=== PATIENT | female | born 1950 | race Hispanic/Latino ===

== ENCOUNTER 2016-06-05 18:53 | Emergency (ER) | payer MEDICARE ==
[2016-06-05 18:54] VITALS: BMI 23.6
[2016-06-05 20:21] VITALS: TEMP 97.9
[2016-06-05 21:05] LABS: BASO # 0.1 K/uL (0.0-0.2); BASO % 1.2 % (0.0-2.0); EOS # 0.3 K/uL (0.0-0.7); EOS % 2.8 % (0.0-4.0); HEMATOCRIT 43.5 % (34.0-47.0); LYMPH # 3.1 K/uL (1.0-4.3); LYMPH % 31.8 % (20.0-40.0); MEAN CELL VOLUME 86.6 fL (81.0-99.0); MEAN CORPUSCULAR HEMOGLOBIN 28.2 pg (27.0-31.0); MEAN CORPUSCULAR HGB CONC 32.6 g/dL (33.0-37.0); MEAN PLATELET VOLUME 9.5 fL (7.2-11.7); MONO # 0.6 K/uL (0.0-0.8); MONO % 6.5 % (0.0-10.0); RED CELL DISTRIBUTION WIDTH 14.3 % (11.5-14.5); WHITE BLOOD COUNT 9.8 K/uL (4.8-10.8)
[2016-06-05 21:15] LABS: INR 0.9; PARTIAL THROMBOPLASTIN TIME 29 SECONDS (21-34)
[2016-06-05 21:31] LABS: CHLORIDE 98 mmol/L (98-107); SODIUM 141 mmol/L (132-148)
[2016-06-05 21:32] LABS: POTASSIUM 3.4 mmol/L (3.6-5.2)
[2016-06-05 21:34] LABS: ALB/GLOB RATIO 1.2 (1.0-2.1); AST/SGOT 28 U/L (14-36); BILIRUBIN,TOTAL 0.2 mg/dL (0.2-1.3); BLOOD UREA NITROGEN 18 mg/dL (7-17); CARBON DIOXIDE 28 mmol/L (22-30); GFR AFRICAN-AMERICAN > 60; GLUCOSE,RANDOM 104 mg/dL (65-105); TOTAL PROTEIN 7.9 g/dL (6.3-8.3)
[2016-06-05 21:35] LABS: ALKALINE PHOSPHATASE 128 U/L (38-126); ALT/SGPT 26 U/L (9-52); CALCIUM 9.2 mg/dl (8.6-10.4)
[2016-06-05 21:39] VITALS: RESP 14
[2016-06-05] MEDS ORDERED: Potassium Chloride 20 mEq ER Tab PO STA (21:47)
--- NOTE | 2016-06-05 22:01 | C.PDOC ---
History Of Present Illness Pt c/o left lateral thigh pain. Time Seen by Provider: 06/05/16 20:37 Chief Complaint (Nursing): Lower Extremity Problem/Injury History Per: Patient, Family Onset/Duration Of Symptoms: Days (few) Current Symptoms Are (Timing): Still Present Severity: Moderate Legs Front+Back: 1 - pain Additional History Per: Prior Records Past Medical History Reviewed: Historical Data, Nursing Documentation, Vital Signs Vital Signs: Last Vital Signs Temp 97.9 F 06/05/16 20:11 Pulse 63 06/05/16 21:38 Resp 14 06/05/16 21:38 BP 141/72 06/05/16 21:38 Pulse Ox 97 06/05/16 21:38 - Medical History PMH: Back Problems, HTN, Kidney Stones Surgical History: Appendectomy - [facility] Procedures INJECT/INFUSE NEC (10/15/12) Family History: States: Unknown Family Hx - Social History Hx Tobacco Use: Yes Hx Alcohol Use: No Hx Substance Use: No - Immunization History Hx Tetanus Toxoid Vaccination: No Hx Influenza Vaccination: No Hx Pneumococcal Vaccination: No Review Of Systems Except As Marked, All Systems Reviewed And Found Negative. Constitutional: Negative for: Fever, Weakness Cardiovascular: Negative for: Chest Pain Respiratory: Negative for: Shortness of Breath Gastrointestinal: Negative for: Vomiting, Abdominal Pain Musculoskeletal: Positive for: Back Pain (low, resolved). Negative for: Neck Pain, Leg Pain, Foot Pain Skin: Negative for: Rash Neurological: Negative for: Weakness, Numbness, Seizures, Altered Mental Status Physical Exam - Physical Exam Appears: Non-toxic, No Acute Distress Skin: Normal Color, Warm, Dry Head: Atraumatic, Normacephalic Eye(s): bilateral: PERRL, EOMI Neck: Normal ROM, Supple Cardiovascular: Rhythm Regular Respiratory: Normal Breath Sounds, No Accessory Muscle Use Gastrointestinal/Abdominal: Soft, No Tenderness Back: No CVA Tenderness, No Vertebral Tenderness, No Straight Leg Raising Extremity: Normal ROM, Tenderness (left lateral thigh with cellulite and spider veins and soft tissue tenderness. ), No Pedal Edema, No Calf Tenderness, Capillary Refill (wnl), No Deformity Pulses: Left Dorsalis Pedis: Normal Neurological/Psych: Oriented x3, Normal Motor, Normal Sensation ED Course And Treatment - Laboratory Results Result Diagrams: 06/05/16 21:00 06/05/16 21:00 Lab Interpretation: No Acute Changes O2 Sat by Pulse Oximetry: 97 Pulse Ox Interpretation: Normal Progress Note: I want to order a LLE duplex to r/o DVT, however it is not available at this time. Reassessment Condition: Improved Disposition Counseled Patient/Family Regarding: Studies Performed, Diagnosis, Need For Followup, Rx Given - Disposition Referrals: Tara Lucas MD [Staff Provider] - Disposition: HOME/ ROUTINE Disposition Time: 22:02 Condition: IMPROVED Additional Instructions: Return to the ER in the morning for an ultrasound of your leg to rule out a blood clot. Return to the ER immediately if you develop chest pain, shortness of breath, worsening of symptoms or if you have any other concerns. Prescriptions: traMADol/Acetaminophen [Ultracet 325 MG-37.5 MG] 1 tab PO Q4 PRN #20 tab PRN Reason: Pain Forms: General Discharge Instructions - Clinical Impression Clinical Impression: Pain of left lateral upper thigh
[2016-06-05] MEDS ORDERED: Potassium Chloride 20 mEq ER Tab PO ONE (22:21)
[2016-06-05 22:49] VITALS: BP 142/58; PULSE 74; O2SAT 95
== END 2016-06-05 22:48 | disposition home or self-care (01) ==
LOC: C.ER 18:53
DX: M79.652 Pain in left thigh (principal)
CPT/HCPCS: 80053; 85025; 85378; 85610; 85730; 96372; 99285; J1885

== ENCOUNTER 2016-06-06 09:17 | Emergency (ER) | payer MEDICARE ==
[2016-06-06 09:18] VITALS: BMI 23.6
[2016-06-06 09:42] VITALS: TEMP 97.7
--- NOTE | 2016-06-06 09:53 | C.PDOC ---
History Of Present Illness A 65 year old female presents to the emergency room requesting a US doppler for the left leg. Patient was seen in the ED yesterday with complaints of posterior upper left thigh pain for 1 week after injuring her back. Patient also notes a pain radiating down her leg. Patient denies any swelling, difficulty ambulating , numbness, weakness, fever, chest pain, shortness of breath, or any other complaints. Time Seen by Provider: 06/06/16 09:53 Chief Complaint (Nursing): Lower Extremity Problem/Injury History Per: Patient History/Exam Limitations: no limitations Onset/Duration Of Symptoms: Other (1 week) Current Symptoms Are (Timing): Still Present Severity: Mild Recent travel outside of the [place]: No Past Medical History Reviewed: Historical Data, Nursing Documentation, Vital Signs Vital Signs: Last Vital Signs Temp 97.7 F 06/06/16 09:40 Pulse 60 06/06/16 10:42 Resp 18 06/06/16 10:42 BP 160/77 H 06/06/16 10:42 Pulse Ox 96 06/06/16 11:05 - Medical History PMH: Back Problems, HTN, Kidney Stones Surgical History: Appendectomy - [facility] Procedures INJECT/INFUSE NEC (10/15/12) Family History: States: Unknown Family Hx - Social History Hx Tobacco Use: Yes Hx Alcohol Use: No Hx Substance Use: No - Immunization History Hx Tetanus Toxoid Vaccination: No Hx Influenza Vaccination: No Hx Pneumococcal Vaccination: No Review Of Systems Except As Marked, All Systems Reviewed And Found Negative. Constitutional: Negative for: Fever Cardiovascular: Negative for: Chest Pain Respiratory: Negative for: Shortness of Breath Musculoskeletal: Positive for: Other (Upper left thigh pain) Neurological: Negative for: Weakness, Numbness Physical Exam - Physical Exam Appears: Well, Non-toxic, No Acute Distress Skin: Normal Color, Warm, Dry, No Rash Head: Atraumatic, Normacephalic Eye(s): bilateral: Normal Inspection Neck: Normal ROM, Supple Cardiovascular: Rhythm Regular Respiratory: Normal Breath Sounds, No Rales, No Rhonchi, No Wheezing Gastrointestinal/Abdominal: Soft, No Tenderness, No Guarding, No Rebound Back: Normal Inspection, No CVA Tenderness, No Vertebral Tenderness Extremity: Normal ROM, No Tenderness, No Pedal Edema, No Calf Tenderness, No Deformity, No Swelling Neurological/Psych: Oriented x3, Normal Speech, Normal Motor, Normal Sensation ED Course And Treatment O2 Sat by Pulse Oximetry: 96 Progress Note: Plan: US Doppler LE. Disposition Counseled Patient/Family Regarding: Diagnosis, Need For Followup - Disposition Referrals: [facility] [Outside] YOUR,PMD [Other] Disposition: HOME/ ROUTINE Disposition Time: 10:39 Condition: GOOD Additional Instructions: TAKE MEDS PRESCRIBED. SEE YOUR PMD FOR FURTHER EVALUATION Instructions: Hypokalemia (ED), Sciatica (ED) - Clinical Impression Clinical Impression: Lumbar radiculopathy - Scribe Statement The provider has reviewed the documentation as recorded by the Scribe Fabio Ramírez All medical record entries made by the Scooteribashli were at my direction and personally dictated by me. I have reviewed the chart and agree that the record accurately reflects my personal performance of the history, physical exam, medical decision making, and the department course for this patient. I have also personally directed, reviewed, and agree with the discharge instructions and disposition.
[2016-06-06 10:42] VITALS: BP 160/77; PULSE 60; RESP 18
[2016-06-06 11:02] VITALS: O2SAT 96
--- NOTE | 2016-06-07 15:25 | VASCLAB ---
PROCEDURE: Left Lower Extremity Venous Duplex Exam. HISTORY: R/O DVT PRIORS: None. TECHNIQUE: Left common femoral, femoral, popliteal and posterior tibial, peroneal and great saphenous veins were evaluated. Flow was assessed with color Doppler, compressibility, assessment of phasic flow and augmentation response. Report prepared by KORY Zhu, RVT FINDINGS: LEFT: 1. Common Femoral Vein: 1.1. Compressibility - Fully compressible: Thrombus - None : Flow - Phasic: Augmentation -Normal: Reflux - None. 2. Femoral Vein: 2.1. Compressibility - Fully compressible: Thrombus - None: Flow - Phasic: Augmentation -Normal: Reflux - None. 3. Popliteal Vein: 3.1. Compressibility - Fully compressible: Thrombus - None: Flow - Phasic: Augmentation -Normal: Reflux - None. 4. Posterior Tibial Vein: 4.1. Compressibility - Fully compressible: Thrombus - None: Flow - Phasic: Augmentation -Normal: Reflux - None. 5. Peroneal Vein: 5.1. Compressibility - Fully compressible: Thrombus - None: Flow - Phasic: Augmentation -Normal: Reflux - None. 6. Great Saphenous Vein: 6.1. Compressibility - Fully compressible: Thrombus - None: Flow - Phasic: Augmentation - Normal: Reflux - None. OTHER FINDINGS: IMPRESSION: No evidence of deep or superficial vein thrombosis of the left lower extremity with excellent venous flow. Normal valve function noted of the left side. Normal venous flow noted in the right common femoral vein.
== END 2016-06-06 10:45 | disposition home or self-care (01) ==
LOC: C.ER 09:17
DX: M54.16 Radiculopathy, lumbar region (principal)

== ENCOUNTER 2017-04-21 05:04 | Emergency (ER) | payer MEDICARE ==
[2017-04-21 05:06] VITALS: BMI 23.6
[2017-04-21 05:23] VITALS: TEMP 98.3
--- NOTE | 2017-04-21 06:50 | C.PDOC ---
History Of Present Illness Patient is a 66 y/o female, with a Hx of 1 kidney and HTN, who presents to the ED with complaints of swelling in hands, upper shoulder and neck pain for the last 3 days. Patient reports to have been pushing a heavy object when she experienced symptoms subsequently. Patient denies any numbness, tingling, or fever; notes pain upon moving upper extremities. Patient admits taking OTC Motrin 200 mg with minimal relief. No other physical complaints at this time. Time Seen by Provider: 04/21/17 06:30 Chief Complaint (Nursing): Medical Clearance History Per: Patient History/Exam Limitations: no limitations Onset/Duration Of Symptoms: Days (3 days ago) Current Symptoms Are (Timing): Still Present Recent travel outside of the [place]: No Past Medical History Reviewed: Historical Data, Nursing Documentation, Vital Signs Vital Signs: Last Vital Signs Temp 98.3 F 04/21/17 05:17 Pulse 84 04/21/17 07:00 Resp 20 04/21/17 07:00 BP 128/76 04/21/17 07:00 Pulse Ox 96 04/27/17 08:50 - Medical History PMH: Back Problems, HTN, Kidney Stones Surgical History: Appendectomy Other Surgeries: nephrectomy - [facility] Procedures INJECT/INFUSE NEC (10/15/12) Family History: States: No Known Family Hx - Social History Hx Tobacco Use: Yes (light smoker) Hx Alcohol Use: No Hx Substance Use: No - Immunization History Hx Tetanus Toxoid Vaccination: No Hx Influenza Vaccination: No Hx Pneumococcal Vaccination: No Review Of Systems Constitutional: Negative for: Fever Cardiovascular: Positive for: Edema (to bilateral hands) Musculoskeletal: Positive for: Neck Pain, Shoulder Pain (bilateral), Arm Pain ( upon movement bilaterally) Neurological: Positive for: Other (negative tingling). Negative for: Numbness Physical Exam - Physical Exam Appears: Non-toxic, No Acute Distress Skin: Normal Color, Warm, Dry Head: Atraumatic, Normacephalic Oral Mucosa: Moist Neck: No Midline Cervical Tenderness, Paracervical Tenderness (bilateral), Supple Chest: Symmetrical Cardiovascular: Rhythm Regular, No Murmur Respiratory: Normal Breath Sounds, No Rales, No Rhonchi, No Wheezing Back: No CVA Tenderness, No Vertebral Tenderness, No Paraspinal Tenderness Extremity: Normal ROM (full range of motion to bilateral elbows; decreased range of motion of bilateral shoulders secondary to pain ), Tenderness ( tenderness to bilateral shoulders and trapezius bilaterally), No Swelling ( negative swelling to bilateal hands), No Other (negative tenderness to bilateral wrists) Pulses: Left Radial: Normal (2+ ), Right Radial: Normal (2+) Neurological/Psych: Oriented x3, Normal Speech, Normal Cognition, Normal Motor, Normal Sensation ED Course And Treatment O2 Sat by Pulse Oximetry: 96 Progress Note: Tylenol administered. Disposition Counseled Patient/Family Regarding: Diagnosis, Need For Followup, Rx Given - Disposition Referrals: Angela Westfall MD [Medical Doctor] - Disposition: HOME/ ROUTINE Disposition Time: 07:00 Condition: STABLE Additional Instructions: Please continue taking Meloxicam that you have at home. Take Tylenol and Muscle relaxant as prescribed. The muscle relaxant will make you drowsy- do no go out when taking this. Follow up with your doctor in a few days. No heavy lifting. Prescriptions: Acetaminophen [Tylenol 325mg tab] 650 mg PO Q6 #30 tab Instructions: Musculoskeletal Pain (ED) Forms: General Discharge Instructions, [facility] (Korean), Work Excuse - Clinical Impression Clinical Impression: Musculoskeletal pain - Scribe Statement The provider has reviewed the documentation as recorded by the Scribe Felicia Mace All medical record entries made by the Scribe were at my direction and personally dictated by me. I have reviewed the chart and agree that the record accurately reflects my personal performance of the history, physical exam, medical decision making, and the department course for this patient. I have also personally directed, reviewed, and agree with the discharge instructions and disposition.
--- NOTE | 2017-04-21 07:15 | C.PDOC ---
Time Seen by Provider: 04/21/17 06:30 Chief Complaint (Nursing): Medical Clearance Past Medical History Vital Signs: Last Vital Signs Temp 98.3 F 04/21/17 05:17 Pulse 96 H 04/21/17 05:17 Resp 22 04/21/17 05:17 BP 145/78 04/21/17 05:17 Pulse Ox 96 04/21/17 05:17 - Medical History PMH: Back Problems, HTN, Kidney Stones Surgical History: Appendectomy - [facility] Procedures INJECT/INFUSE NEC (10/15/12) Family History: States: Unknown Family Hx - Social History Hx Tobacco Use: Yes Hx Alcohol Use: No Hx Substance Use: No - Immunization History Hx Tetanus Toxoid Vaccination: No Hx Influenza Vaccination: No Hx Pneumococcal Vaccination: No ED Course And Treatment O2 Sat by Pulse Oximetry: 96 Medical Decision Making Medical Decision Making: pt with shoulder neck hand pain after pushing/pulling heavy chair. hx one kidney. will give tylenol and muscle relaxant. Disposition Counseled Patient/Family Regarding: Diagnosis, Need For Followup, Rx Given - Disposition Referrals: Angela Westfall MD [Medical Doctor] - Disposition: HOME/ ROUTINE Disposition Time: 07:17 Condition: STABLE Additional Instructions: Please continue taking Meloxicam that you have at home. Take Tylenol and Muscle relaxant as prescribed. The muscle relaxant will make you drowsy- do no go out when taking this. Follow up with your doctor in a few days. No heavy lifting. Prescriptions: Acetaminophen [Tylenol 325mg tab] 650 mg PO Q6 #30 tab Cyclobenzaprine [Cyclobenzaprine HCl] 5 mg PO TID #9 tab Instructions: Musculoskeletal Pain (ED) Forms: [facility] ([place] Arabian), General Discharge Instructions - Clinical Impression Clinical Impression: Musculoskeletal pain
[2017-04-21 07:46] VITALS: BP 128/76; PULSE 84; RESP 20
[2017-04-27 08:47] VITALS: O2SAT 96
== END 2017-04-21 07:45 | disposition home or self-care (01) ==
LOC: C.ER 05:04
DX: M79.1 Myalgia (principal)

== ENCOUNTER 2017-04-25 07:36 | Inpatient (IN) | payer MEDICARE ==
[2017-04-25 07:37] VITALS: BMI 23.6
[2017-04-25] MEDS ORDERED: Iohexol 240 (50 ml) PO ONE (08:41)
[2017-04-25] MEDS ORDERED: Iohexol 240 (50 ml) ONE (08:52)
--- NOTE | 2017-04-25 09:01 | C.PDOC ---
History Of Present Illness 66 y/o female presents to ED with complaints of abdominal pain and distention since yesterday. Patient was seen on 04/30 at ED for muscle spasm and given Flexiril, started having diarrhea and went to clinic given other medication, developed abdominal pain. Patient reports last bowel movement today and denies fever, chills, chest pain, sob, nausea or any other complaints at this time. Time Seen by Provider: 04/25/17 07:59 Chief Complaint (Nursing): Abdominal Pain History Per: Patient History/Exam Limitations: no limitations Onset/Duration Of Symptoms: Days Current Symptoms Are (Timing): Still Present Location Of Pain/Discomfort: Diffuse Past Medical History Reviewed: Historical Data, Nursing Documentation, Vital Signs Vital Signs: Last Vital Signs Temp 97.7 F 04/30/17 04:00 Pulse 74 04/30/17 06:30 Resp 16 04/30/17 06:18 BP 140/43 L 04/30/17 06:18 Pulse Ox 95 04/30/17 06:18 - Medical History PMH: Back Problems, HTN, Hypercholesterolemia, Kidney Stones Surgical History: Appendectomy - [facility] Procedures INJECT/INFUSE NEC (10/15/12) Family History: States: No Known Family Hx - Social History Hx Tobacco Use: Yes (light smoker) Hx Alcohol Use: No Hx Substance Use: No - Immunization History Hx Tetanus Toxoid Vaccination: No Hx Influenza Vaccination: No Hx Pneumococcal Vaccination: No Review Of Systems Except As Marked, All Systems Reviewed And Found Negative. Gastrointestinal: Positive for: Abdominal Pain, Diarrhea Physical Exam - Physical Exam Appears: Non-toxic, No Acute Distress Skin: Warm, Dry, No Rash Head: Atraumatic, Normacephalic Oral Mucosa: Moist Neck: Normal ROM, Supple Cardiovascular: Rhythm Regular Respiratory: Normal Breath Sounds, No Rales, No Rhonchi, No Wheezing Gastrointestinal/Abdominal: Bowel Sounds, Soft, Tenderness ((+) diffuse tenderness, greater in lower quadrants), No Distention, No Guarding, No Rebound Rectal: Heme Positive Back: No CVA Tenderness Neurological/Psych: Oriented x3 ED Course And Treatment - Laboratory Results Result Diagrams: 04/30/17 06:17 04/30/17 06:13 ECG: Interpreted By Me, Viewed By Me ECG Rhythm: Sinus Rhythm Interpretation Of ECG: Left atrial enlargement Rate From EC (BPM) O2 Sat by Pulse Oximetry: 99 (RA) Pulse Ox Interpretation: Normal Medical Decision Making Medical Decision Making: assessment: Abdominal pain Progress: Patient is admitted to Dr. Medina service for abdominal pain with consult to Dr. Hollingsworth surgery consumer banker Disposition Discussed With : Sherley Medina Doctor Will See Patient In The: Hospital Counseled Patient/Family Regarding: Studies Performed, Diagnosis - Disposition Disposition: HOSPITALIZED Disposition Time: 12:44 Condition: FAIR - Clinical Impression Clinical Impression: Abdominal pain - Scribe Statement The provider has reviewed the documentation as recorded by the Scooteribashli Gates All medical record entries made by the Fabiana were at my direction and personally dictated by me. I have reviewed the chart and agree that the record accurately reflects my personal performance of the history, physical exam, medical decision making, and the department course for this patient. I have also personally directed, reviewed, and agree with the discharge instructions and disposition.
[2017-04-25 09:05] LABS: BASO # 0.1 K/uL (0.0-0.2); BASO % 0.4 % (0.0-2.0); EOS # 0.1 K/uL (0.0-0.7); EOS % 0.6 % (0.0-4.0); HEMOGLOBIN 13.1 g/dL (11.0-16.0); LYMPH # 1.1 K/uL (1.0-4.3); LYMPH % 6.4 % (20.0-40.0); MEAN CORPUSCULAR HEMOGLOBIN 29.2 pg (27.0-31.0); MEAN CORPUSCULAR HGB CONC 34.4 g/dL (33.0-37.0); MEAN PLATELET VOLUME 8.5 fL (7.2-11.7); MONO % 6.1 % (0.0-10.0); NEUT # 14.7 K/uL (1.8-7.0); NEUT % 86.5 % (50.0-75.0); PLATELET COUNT 305 K/uL (130-400); RBC 4.49 Mil/uL (3.80-5.20); RED CELL DISTRIBUTION WIDTH 14.1 % (11.5-14.5)
[2017-04-25 09:17] LABS: ALB/GLOB RATIO 0.8 (1.0-2.1); ALBUMIN 2.8 g/dL (3.5-5.0); CALCIUM 7.7 mg/dl (8.6-10.4)
[2017-04-25 09:25] LABS: SQUAMOUS EPITHIAL 54 /hpf (0-5); URINE BACTERIA FEW (<OCC); URINE BILIRUBIN NEGATIVE (NEGATIVE); URINE BLOOD 2+ (NEGATIVE); URINE CLARITY Hazy (Clear); URINE COLOR Yellow (YELLOW); URINE GLUCOSE (UA) NORMAL (Normal); URINE LEUKOCYTE ESTERASE TRACE Leu/uL (Negative); URINE PROTEIN 2+ mg/dL (NEGATIVE); URINE UROBILINOGEN NORMAL mg/dL (0.2-1.0)
[2017-04-25] MEDS ORDERED: Piperacillin/Tazobact 3.375 GM in Sodium Chloride 100 ML IVPB STA (10:14)
[2017-04-25 10:23] LABS: LYMPHOCYTE 2 % (20-40); MONOCYTE 6 % (0-10); NEUTROPHIL 92 % (50-75); PLATELET ESTIMATE NORMAL (NORMAL); TOTAL CELLS COUNTED 100
[2017-04-25] MEDS ORDERED: Sodium Chloride 0.9% 1,000 ML IV ONE ×2 (10:25→12:45)
[2017-04-25] MEDS ORDERED: Sodium Chloride 0.9% 1,000 ML ONE ×2 (10:45→13:15)
--- NOTE | 2017-04-25 12:14 | CT ---
PROCEDURE: CT Abdomen and Pelvis without IV contrast. HISTORY: abd. pain COMPARISON: None available TECHNIQUE: Contiguous axial images of the abdomen and pelvis. Oral contrast was administered. No IV contrast given. Coronal and Sagittal reformats generated. Radiation dose: Total exam DLP = 391.77 mGy-cm. This CT exam was performed using one or more of the following dose reduction techniques: Automated exposure control, adjustment of the mA and/or kV according to patient size, and/or use of iterative reconstruction technique. FINDINGS: There is limited evaluation of the solid organs without the administration of IV contrast. LOWER THORAX: Bibasilar atelectasis. There is no visible pleural effusion or pneumothorax. LIVER: Unremarkable unenhanced appearance. GALLBLADDER AND BILE DUCTS: Unremarkable unenhanced appearance. PANCREAS: Unremarkable unenhanced appearance. SPLEEN: Unremarkable unenhanced appearance. ADRENALS: The left adrenal gland is not well visualized. The right adrenal gland appears unremarkable. KIDNEYS AND URETERS: Evidence of left nephrectomy. No evidence of hydronephrosis or obstructing calculus, right kidney. BLADDER: Under distention of the urinary bladder limits evaluation. REPRODUCTIVE: Uterus is present. This left adnexal cystic lesions, possibly ovarian of unclear etiology. APPENDIX: The appendix is not identified. BOWEL: The stomach is incompletely distended. No evidence of small-bowel obstruction. Small bowel wall thickening particularly of the duodenum may reflect enteritis. Extensive cecal wall thickening possibly infectious or inflammatory however malignant neoplasm is not excluded. Diverticulosis without CT evidence of acute diverticulitis. PERITONEUM: Mild ascites, perihepatic and right upper quadrant. Small pelvic free fluid. No definite free air. LYMPH NODES: No bulky lymphadenopathy identified. VASCULATURE: Atherosclerotic calcifications of the aorta. No aortic aneurysm. BONES: Mild degenerative changes. OTHER FINDINGS: None. IMPRESSION: Left adnexal cystic lesions favored ovarian etiology. Considerations include ovarian cystic neoplasm, less likely tubo-ovarian abscess or sequela of acute diverticulitis. Recommend pelvic ultrasound for further evaluation. Extensive diverticulosis. Extensive cecal wall thickening possibly infectious or inflammatory however malignant neoplasm is not excluded. Small bowel wall thickening particularly of the duodenum may reflect enteritis. Left nephrectomy. Mild ascites, perihepatic and right upper quadrant. Small pelvic free fluid. Additional findings as above.
--- NOTE | 2017-04-25 15:04 | US ---
HISTORY: abd. pain COMPARISON: None available. TECHNIQUE: Transabdominal and transvaginal FINDINGS: UTERUS: Measures 6.1 x 2.8 x 4.0 cm. No uterine mass. Several nodular uterine calcifications may reflect calcified degenerated fibroids. ENDOMETRIUM: Measures 1 mm in single wall thickness. Endometrial cavity distended with small amount of fluid. Normal endometrial thickness. No endometrial mass identified. Endometrial fluid is an abnormal finding in this postmenopausal woman. . CERVIX: No cervical abnormality identified. RIGHT OVARY: Not visualized LEFT OVARY: 5.6 x 3.4 x 6.0 cm. Blood flow demonstrated. Complex cystic structure, 4.1 x 2.6 x 4.8 cm. Possible hydrosalpinx. Possible multilocular cyst. No clear solid component identified. FREE FLUID: There is moderate free fluid noted in the pelvis with low-level internal echoes common nonspecific. This may reflect blood or post infectious debris. OTHER FINDINGS: None. IMPRESSION: Small amount of endometrial fluid, abnormal in a postmenopausal woman. Moderate fluid in the pelvis with low-level echoes common nonspecific. Complex left adnexal cystic structure. Multilocular cyst/cystic mass versus hydrosalpinx. . Further evaluation is advised.
--- NOTE | 2017-04-25 17:16 | CP.PCM.CON ---
History of Present Illness - History of Present Illness History of Present Illness: General surgery consult note for Dr. Nery Pulliam, PGY-1 Pt S & E at bedside this afternoon with attending. 66F w/PMH sig for carotid artery disease consulted for lower abdominal pain x 2 days. Pain is in lower quadrants, non radiating, severe, cramping. Admits to diarrhea- melena x 8. Tried Tylenol, muscle relaxers with minimal relief. Also had shoulder and upper extremity pain & swelling- now not swollen. Denies N & V , F & C, individuals with similar symptoms at home, CP, SOB, other complaints. PMH: carotid artery disease, HTN PSH: Nephrectomy, appendectomy, ovarian excision All: Strawberries, mangos SH: Admits 1/2ppd x 60yrs, denies ETOH or illicit drugs PMD: [place] Review of Systems - Review of Systems All systems: reviewed and no additional remarkable complaints except - Constitutional Constitutional: absent: Chills, Fever, Increased Appetite - EENT Eyes: absent: Change in Vision Ears: absent: Dizziness Nose/Mouth/Throat: absent: Sore Throat - Cardiovascular Cardiovascular: absent: Chest Pain, Palpitations - Gastrointestinal Gastrointestinal: Abdominal Pain, Change in Bowel Habits, Diarrhea, Melena. absent: Hematemesis, Nausea, Vomiting - Genitourinary Genitourinary: absent: Change in Urinary Stream, Dysuria - Integumentary Integumentary: absent: Rash - Psychiatric Psychiatric: Change in Appetite (decreased) Past Patient History - Infectious Disease Hx of Infectious Diseases: None - Past Social History Smoking Status: Light Smoker < 10 Cigarettes Daily - CARDIAC Hx Cardiac Disorders: Yes Hx Hypercholesterolemia: Yes Hx Hypertension: Yes - PULMONARY Hx Respiratory Disorders: No - NEUROLOGICAL Hx Neurological Disorder: No - RENAL Hx Chronic Kidney Disease: Yes Hx Kidney Stones: Yes - ENDOCRINE/METABOLIC Hx Endocrine Disorders: No - HEMATOLOGICAL/ONCOLOGICAL Hx Blood Disorders: No - INTEGUMENTARY Hx Dermatological Problems: No - MUSCULOSKELETAL/RHEUMATOLOGICAL Hx Falls: No - GASTROINTESTINAL Hx Gastrointestinal Disorders: No - GENITOURINARY/GYNECOLOGICAL Hx Genitourinary Disorders: No - PSYCHIATRIC Hx Substance Use: No - SURGICAL HISTORY Hx Appendectomy: Yes Other/Comment: nephrectomy, right ovary removed - ANESTHESIA Hx Anesthesia: Yes Hx Anesthesia Reactions: No Hx Malignant Hyperthermia: No Has any member of the family had a problem w/ anesthesia?: No Meds Allergies/Adverse Reactions: Allergies Allergy/AdvReac Type Severity Reaction Status Date / Time bia Allergy Intermediate SWELLING Verified 04/21/17 05:23 strawberry Allergy Intermediate RASH Verified 04/21/17 05:23 - Medications Medications: Current Medications Pneumococcal Polyvalent Vaccine (Pneumovax 23 Vaccine) 0.5 ml IM .ONCE ONE Stop: 04/26/17 10:01 Physical Exam - Constitutional Appears: Non-toxic, No Acute Distress - Head Exam Head Exam: ATRAUMATIC, NORMAL INSPECTION, NORMOCEPHALIC - Eye Exam Eye Exam: EOMI, Normal appearance - ENT Exam ENT Exam: Mucous Membranes Moist, Normal Exam - Neck Exam Neck exam: Positive for: Full Rom, Normal Inspection - Respiratory Exam Respiratory Exam: NORMAL BREATHING PATTERN - Cardiovascular Exam Cardiovascular Exam: REGULAR RHYTHM, +S1, +S2 - GI/Abdominal Exam GI & Abdominal Exam: Soft, Tenderness (lower quadrants). absent: Distended, Firm, Guarding - Extremities Exam Extremities exam: Positive for: normal inspection - Neurological Exam Neurological exam: Alert, CN II-XII Intact, Oriented x3 - Psychiatric Exam Psychiatric exam: Normal Affect, Normal Mood - Skin Skin Exam: Dry, Intact, Normal Color, Warm Results - Vital Signs Recent Vital Signs: Last Vital Signs Temp 97.9 F 04/25/17 16:23 Pulse 85 04/25/17 16:23 Resp 18 04/25/17 16:23 BP 133/55 L 04/25/17 16:23 Pulse Ox 95 04/25/17 16:23 - Labs Result Diagrams: 04/25/17 09:02 04/25/17 09:02 Labs: Laboratory Results - last 24 hr 04/25/17 04/25/17 04/25/17 09:02 09:02 09:02 WBC 17.0 H D RBC 4.49 Hgb 13.1 Hct 38.2 MCV 85.0 MCH 29.2 MCHC 34.4 RDW 14.1 Plt Count 305 MPV 8.5 Neut % (Auto) 86.5 H Lymph % (Auto) 6.4 L [place] % (Auto) 6.1 Eos % (Auto) 0.6 Baso % (Auto) 0.4 Neut # (Auto) 14.7 H Lymph # (Auto) 1.1 [place] # (Auto) 1.0 H Eos # (Auto) 0.1 Baso # (Auto) 0.1 Neutrophils % (Manual) 92 H Lymphocytes % (Manual) 2 L Monocytes % (Manual) 6 Platelet Estimate Normal RBC Morphology Normal Sodium 124 L Potassium 3.7 Chloride 91 L Carbon Dioxide 22 Anion Gap 15 BUN 39 H Creatinine 1.1 Est GFR ( Amer) 60 Est GFR (Non-Af Amer) 49 Random Glucose 90 Calcium 7.7 L Total Bilirubin 0.4 AST 22 ALT 31 Alkaline Phosphatase 103 Total Protein 6.2 L Albumin 2.8 L D Globulin 3.4 Albumin/Globulin Ratio 0.8 L Lipase 82 Urine Color Yellow Urine Clarity Hazy Urine pH 5.0 Ur Specific [place] 1.015 Urine Protein 2+ H Urine Glucose (UA) Normal Urine Ketones Negative Urine Blood 2+ H Urine Nitrate Negative Urine Bilirubin Negative Urine Urobilinogen Normal Ur Leukocyte Esterase Trace Urine WBC (Auto) 15 H Urine RBC (Auto) 6 H Ur Squamous Epith Cells 54 H Urine Bacteria Few H Hyaline Casts 3-5 H Assessment & Plan - Assessment and Plan (Free Text) Assessment: 66F w/lower abdominal pain, melena Plan: Monitor for melena Monitor H/H IV ABx NPO IVF Pain control PPI drip Further mgmt as per primary team ASIF attending Shasha, PGY-1 - Date & Time Date: 04/25/17 Time: 13:00
--- NOTE | 2017-04-25 17:54 | CP.PCM.HP ---
History of Present Illness - History of Present Illness History of Present Illness: 66 y old f admited from the er for abd pain back pain swaling abd and ext ct and ulrasound tellez abd fluids cystic mass l adnexia Present on Admission - Present on Admission Any Indicators Present on Admission: No Review of Systems - Review of Systems Systems not reviewed;Unavailable: Acuity of Condition - Constitutional Constitutional: Weight Gain - EENT Eyes: As Per HPI Ears: As Per HPI Nose/Mouth/Throat: As Per HPI - Breasts Breasts: As Per HPI - Cardiovascular Cardiovascular: As Per HPI - Respiratory Respiratory: As Per HPI - Gastrointestinal Gastrointestinal: Bloating, Loose Stools - Genitourinary Genitourinary: Dysuria, Hx /Renal Surgery Additional comments: has one kidney removed for kalina stone - Reproductive: Female Reproductive:Female: As Per HPI, Pelvic Pain - Menstruation Menstruation: Post Menopausal - Musculoskeletal Musculoskeletal: Back Pain - Integumentary Integumentary: As Per HPI - Neurological Neurological: As Per HPI - Psychiatric Psychiatric: As Per HPI - Endocrine Endocrine: As Per HPI - Hematologic/Lymphatic Hematologic: As Per HPI Past Patient History - Infectious Disease Hx of Infectious Diseases: None - Past Social History Smoking Status: Light Smoker < 10 Cigarettes Daily - CARDIAC Hx Cardiac Disorders: Yes Hx Hypercholesterolemia: Yes Hx Hypertension: Yes - PULMONARY Hx Respiratory Disorders: No - NEUROLOGICAL Hx Neurological Disorder: No - RENAL Hx Chronic Kidney Disease: Yes Hx Kidney Stones: Yes - ENDOCRINE/METABOLIC Hx Endocrine Disorders: No - HEMATOLOGICAL/ONCOLOGICAL Hx Blood Disorders: No - INTEGUMENTARY Hx Dermatological Problems: No - MUSCULOSKELETAL/RHEUMATOLOGICAL Hx Falls: No - GASTROINTESTINAL Hx Gastrointestinal Disorders: No - GENITOURINARY/GYNECOLOGICAL Hx Genitourinary Disorders: No - PSYCHIATRIC Hx Substance Use: No - SURGICAL HISTORY Hx Appendectomy: Yes Other/Comment: nephrectomy, right ovary removed - ANESTHESIA Hx Anesthesia: Yes Hx Anesthesia Reactions: No Hx Malignant Hyperthermia: No Has any member of the family had a problem w/ anesthesia?: No Meds Allergies/Adverse Reactions: Allergies Allergy/AdvReac Type Severity Reaction Status Date / Time bia Allergy Intermediate SWELLING Verified 04/21/17 05:23 strawberry Allergy Intermediate RASH Verified 04/21/17 05:23 Physical Exam - Constitutional Appears: Non-toxic, In Acute Distress - Head Exam Head Exam: ATRAUMATIC - Eye Exam Eye Exam: Normal appearance Pupil Exam: PERRL - ENT Exam ENT Exam: Mucous Membranes Moist - Neck Exam Neck exam: Positive for: Full Rom - Respiratory Exam Respiratory Exam: Clear to Auscultation Bilateral - Cardiovascular Exam Cardiovascular Exam: REGULAR RHYTHM - GI/Abdominal Exam GI & Abdominal Exam: Distended, Normal Bowel Sounds, Tenderness - Rectal Exam Rectal Exam: Deferred - Exam Exam: NORMAL INSPECTION - Extremities Exam Extremities exam: Positive for: normal inspection - Back Exam Back exam: NORMAL INSPECTION - Neurological Exam Neurological exam: Normal Gait - Psychiatric Exam Psychiatric exam: Normal Affect - Skin Skin Exam: Normal Color Results - Vital Signs Recent Vital Signs: Last Vital Signs Temp 97.9 F 04/25/17 16:23 Pulse 85 04/25/17 16:23 Resp 18 04/25/17 16:23 BP 133/55 L 04/25/17 16:23 Pulse Ox 95 04/25/17 16:23 - Labs Result Diagrams: 04/25/17 09:02 04/25/17 09:02 Labs: Laboratory Results - last 24 hr 04/25/17 04/25/17 04/25/17 09:02 09:02 09:02 WBC 17.0 H D RBC 4.49 Hgb 13.1 Hct 38.2 MCV 85.0 MCH 29.2 MCHC 34.4 RDW 14.1 Plt Count 305 MPV 8.5 Neut % (Auto) 86.5 H Lymph % (Auto) 6.4 L [place] % (Auto) 6.1 Eos % (Auto) 0.6 Baso % (Auto) 0.4 Neut # (Auto) 14.7 H Lymph # (Auto) 1.1 [place] # (Auto) 1.0 H Eos # (Auto) 0.1 Baso # (Auto) 0.1 Neutrophils % (Manual) 92 H Lymphocytes % (Manual) 2 L Monocytes % (Manual) 6 Platelet Estimate Normal RBC Morphology Normal Sodium 124 L Potassium 3.7 Chloride 91 L Carbon Dioxide 22 Anion Gap 15 BUN 39 H Creatinine 1.1 Est GFR ( Amer) 60 Est GFR (Non-Af Amer) 49 Random Glucose 90 Calcium 7.7 L Total Bilirubin 0.4 AST 22 ALT 31 Alkaline Phosphatase 103 Total Protein 6.2 L Albumin 2.8 L D Globulin 3.4 Albumin/Globulin Ratio 0.8 L Lipase 82 Urine Color Yellow Urine Clarity Hazy Urine pH 5.0 Ur Specific [place] 1.015 Urine Protein 2+ H Urine Glucose (UA) Normal Urine Ketones Negative Urine Blood 2+ H Urine Nitrate Negative Urine Bilirubin Negative Urine Urobilinogen Normal Ur Leukocyte Esterase Trace Urine WBC (Auto) 15 H Urine RBC (Auto) 6 H Ur Squamous Epith Cells 54 H Urine Bacteria Few H Hyaline Casts 3-5 H Assessment & Plan - Assessment and Plan (Free Text) Assessment: acascitis adenexial mass r/o malignany diarhea colon thikness Plan: admit surgery consult npi and start iv fluids - Date & Time Date: 04/25/17 Time: 18:00
[2017-04-25] MEDS: Sodium Chloride 0.9% 1,000 ML IV SCH (18:59)
[2017-04-25] MEDS ORDERED: Pantoprazole 80 MG in Sodium Chloride 0.9% 100 ML IVP SCH (19:00)
[2017-04-25] MEDS ORDERED: Morphine 4 MG/ML VIAL IVP PRN ×2 (20:00→20:30)
[2017-04-25] MEDS: Pantoprazole 80 MG in Sodium Chloride 0.9% 100 ML IVPB SCH (20:35)
[2017-04-26] MEDS: Sodium Chloride 0.9% 1,000 ML IV SCH (04:04)
[2017-04-26] MEDS: Pantoprazole 80 MG in Sodium Chloride 0.9% 100 ML IVPB SCH ×2 (05:53→18:58)
--- NOTE | 2017-04-26 08:13 | CP.PCM.PN ---
Subjective - Date & Time of Evaluation Date of Evaluation: 04/26/17 Time of Evaluation: 06:20 - Subjective Subjective: General surgery progress note for Dr. Nery Pulliam, PGY-1 Pt S & E at bedside. Pt reports lower quadrant ab pain improved. Still with distention. Admits to small amount of flatus, no futher BMs. Denies N & V. Objective - Vital Signs/Intake and Output Vital Signs (last 24 hours): Temp Pulse Resp BP Pulse Ox 98.7 F 87 20 121/61 94 L 04/26/17 01:07 04/26/17 01:07 04/26/17 01:07 04/26/17 01:07 04/26/17 01:07 Intake and Output: 04/26/17 04/26/17 06:59 18:59 Intake Total 1360 Balance 1360 - Medications Medications: Current Medications Sodium Chloride (Sodium Chloride 0.9%) 1,000 mls @ 125 mls/hr IV .Q8H ALEX Last Admin: 04/26/17 04:04 Dose: 125 mls/hr Pantoprazole Sodium 80 mg/ (Sodium Chloride) 100 mls @ 10 mls/hr IVPB .Q10H ALEX PRN Reason: 8 MG/HR Last Admin: 04/26/17 05:53 Dose: 10 mls/hr Morphine Sulfate (Morphine) 2 mg IVP Q4H PRN PRN Reason: Pain, moderate (4-7) Morphine Sulfate (Morphine) 4 mg IVP Q4 PRN PRN Reason: SEVERE PAIN 8-10 Ondansetron HCl (Zofran Inj) 4 mg IVP Q6H PRN PRN Reason: Nausea/Vomiting Pneumococcal Polyvalent Vaccine (Pneumovax 23 Vaccine) 0.5 ml IM .ONCE ONE Stop: 04/26/17 10:01 - Labs Labs: 04/25/17 09:02 04/25/17 09:02 - Constitutional Appears: Non-toxic, No Acute Distress - Head Exam Head Exam: ATRAUMATIC, NORMAL INSPECTION, NORMOCEPHALIC - Eye Exam Eye Exam: EOMI, Normal appearance - ENT Exam ENT Exam: Mucous Membranes Moist, Normal Exam - Neck Exam Neck Exam: Full ROM, Normal Inspection - Respiratory Exam Respiratory Exam: NORMAL BREATHING PATTERN - Cardiovascular Exam Cardiovascular Exam: REGULAR RHYTHM, +S1, +S2 - GI/Abdominal Exam GI & Abdominal Exam: Distended (moderate), Soft, Tenderness (lower quadrants, minimal). absent: Firm, Guarding, Rigid - Extremities Exam Extremities Exam: Normal Inspection - Neurological Exam Neurological Exam: Alert, Awake, CN II-XII Intact, Oriented x3 - Psychiatric Exam Psychiatric exam: Normal Affect, Normal Mood - Skin Skin Exam: Dry, Intact, Normal Color, Warm Assessment and Plan - Assessment and Plan (Free Text) Assessment: 66F w/ab pain (improved), ab distention and recent melena - no BMs since admission Plan: Monitor for melena, BMs Monitor H/H Cont IV ABx NPO until bowel function better Cont IVF Pain control Cont PPI drip Further mgmt as per primary team ASIF attending Shasha, PGY-1
[2017-04-26 08:35] LABS: PROTHROMBIN TIME 11.4 SECONDS (9.7-12.2)
[2017-04-26 08:42] LABS: BASO # 0.1 K/uL (0.0-0.2); BASO % 0.6 % (0.0-2.0); EOS # 0.1 K/uL (0.0-0.7); EOS % 0.6 % (0.0-4.0); HEMOGLOBIN 12.1 g/dL (11.0-16.0); LYMPH # 1.2 K/uL (1.0-4.3); LYMPH % 6.6 % (20.0-40.0); MEAN CORPUSCULAR HEMOGLOBIN 28.6 pg (27.0-31.0); MEAN CORPUSCULAR HGB CONC 33.3 g/dL (33.0-37.0); MEAN PLATELET VOLUME 8.4 fL (7.2-11.7); MONO # 0.8 K/uL (0.0-0.8); MONO % 4.2 % (0.0-10.0); NEUT # 15.9 K/uL (1.8-7.0); PLATELET COUNT 359 K/uL (130-400); RBC 4.22 Mil/uL (3.80-5.20); RED CELL DISTRIBUTION WIDTH 14.6 % (11.5-14.5)
[2017-04-26 08:45] LABS: ALB/GLOB RATIO 0.8 (1.0-2.1); ALBUMIN 2.7 g/dL (3.5-5.0); CALCIUM 7.6 mg/dl (8.6-10.4)
[2017-04-26] MEDS: Dextrose 5%/0.45% NS 1,000 ML IV SCH ×3 (08:45→18:57)
[2017-04-26 09:31] LABS: BANDS 2 % (0-2); LYMPHOCYTE 6 % (20-40); METAMYELOCYTE 1 % (0-0); MONOCYTE 3 % (0-10); MYELOCYTE 1 % (0-0); NEUTROPHIL 87 % (50-75); PLATELET ESTIMATE NORMAL (NORMAL); TOTAL CELLS COUNTED 100
[2017-04-26 09:33] LABS: LARGE PLATELETS PRESENT
[2017-04-26] MEDS: Pneumococcal 23-Valent Vaccine IM ONE ×2 (10:58→11:02)
[2017-04-26] MEDS ORDERED: Peg-Electrolyte Oral Soln 4L (Golytely) PO ONE (15:00)
[2017-04-26] MEDS ORDERED: Potassium Chloride 20 mEq ER Tab PO ONE (15:00)
[2017-04-26] MEDS ORDERED: Bisacodyl 5mg EC Tab PO ONE (17:00)
[2017-04-26] MEDS: Belladonna-Phenobarbital PO SCH (18:57)
--- NOTE | 2017-04-26 19:23 | CP.PCM.PN ---
Subjective - Date & Time of Evaluation Date of Evaluation: 04/26/17 Time of Evaluation: 19:20 - Subjective Subjective: uncomfortabe abd distended on prep for coloscopy tomorro still npo not seen by ski maker yet Objective - Vital Signs/Intake and Output Vital Signs (last 24 hours): Temp Pulse Resp BP Pulse Ox 97.9 F 81 20 153/60 H 95 04/26/17 16:15 04/26/17 16:15 04/26/17 16:15 04/26/17 16:15 04/26/17 16:15 Intake and Output: 04/26/17 04/27/17 18:59 06:59 Intake Total 1240 Balance 1240 - Medications Medications: Current Medications Amlodipine Besylate (Norvasc) 10 mg PO DAILY [facility] Last Admin: 04/26/17 15:55 Dose: 10 mg [place]/Phenobarbital () 1 tab PO TID [facility] Last Admin: 04/26/17 18:57 Dose: 1 tab Hydrochlorothiazide (Hydrodiuril) 25 mg PO DAILY [facility] Last Admin: 04/26/17 15:55 Dose: 25 mg Pantoprazole Sodium 80 mg/ (Sodium Chloride) 100 mls @ 10 mls/hr IVPB .Q10H [facility] PRN Reason: 8 MG/HR Last Admin: 04/26/17 18:58 Dose: 10 mls/hr Dextrose/Sodium Chloride (Dextrose 5%/0.45% Ns 1000 Ml) 1,000 mls @ 100 mls/hr IV .Q10H [facility] Last Admin: 04/26/17 18:57 Dose: Not Given Metoclopramide HCl (Reglan) 5 mg IVP Q6H [facility] Last Admin: 04/26/17 15:01 Dose: 5 mg Morphine Sulfate (Morphine) 2 mg IVP Q4H PRN PRN Reason: Pain, moderate (4-7) Morphine Sulfate (Morphine) 4 mg IVP Q4 PRN PRN Reason: SEVERE PAIN 8-10 Ondansetron HCl (Zofran Inj) 4 mg IVP Q6H PRN PRN Reason: Nausea/Vomiting - Labs Labs: 04/26/17 08:21 04/26/17 08:21 PT 11.4 SECONDS (9.7-12.2) 04/26/17 08:21 INR 1.0 04/26/17 08:21 APTT 24 SECONDS (21-34) 04/26/17 08:21 - Constitutional Appears: In Acute Distress - Head Exam Head Exam: ATRAUMATIC - Eye Exam Eye Exam: Normal appearance - ENT Exam ENT Exam: Mucous Membranes Dry - Neck Exam Neck Exam: Full ROM - Respiratory Exam Respiratory Exam: NORMAL BREATHING PATTERN - Cardiovascular Exam Cardiovascular Exam: REGULAR RHYTHM - GI/Abdominal Exam GI & Abdominal Exam: Distended, Tenderness, Mass - Rectal Exam Rectal Exam: Deferred - Extremities Exam Extremities Exam: Normal Inspection, Pedal Edema - Neurological Exam Neurological Exam: Normal Gait, Oriented x3 - Psychiatric Exam Psychiatric exam: Normal Affect - Skin Skin Exam: Normal Color Assessment and Plan - Assessment and Plan (Free Text) Assessment: thiik colon wall feor colonoscopy asctis and pelvic mass await surgery and ski maker cont current treatment
--- NOTE | 2017-04-27 00:02 | CP.PCM.CON ---
<Magi Jones - Last Filed: 04/27/17 00:21> History of Present Illness - History of Present Illness History of Present Illness: [facility] [employer] Consult Note: Patient is a 66 year old female who presented to [facility] for abdominal pain that started 1 week ago. Patient reports that pain is generalized , denies any inciting events. Pain was 7/10 prior to arrival and at this time is 1/10. While at home patient was taking tylenol with relief. Denies any aggravating factors. Patient denies any recent weight loss or change in appetite. Patient denies any fevers, chills, headaches, dizziness, cp, palpitations, sob, abdominal pain, urinary symptoms, vaginal bleeding. Currently she is NPO and taking bowel prep for colonoscopy tomorrow. 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 Family Hx: Denies Review of Systems - Review of Systems All systems: reviewed and no additional remarkable complaints except - Constitutional Constitutional: absent: Chills, Fever - EENT Ears: absent: Dizziness - Respiratory Respiratory: absent: Cough, Wheezing - Gastrointestinal Gastrointestinal: absent: Abdominal Pain, Nausea, Vomiting - Genitourinary Genitourinary: absent: Dysuria - Reproductive: Female Reproductive:Female: Post Menopausal - Neurological Neurological: absent: Dizziness Past Patient History - Infectious Disease Hx of Infectious Diseases: None - Past Social History Smoking Status: Light Smoker < 10 Cigarettes Daily - CARDIAC Hx Cardiac Disorders: Yes Hx Hypercholesterolemia: Yes Hx Hypertension: Yes - PULMONARY Hx Respiratory Disorders: No - NEUROLOGICAL Hx Neurological Disorder: No - RENAL Hx Chronic Kidney Disease: Yes Hx Kidney Stones: Yes - ENDOCRINE/METABOLIC Hx Endocrine Disorders: No - HEMATOLOGICAL/ONCOLOGICAL Hx Blood Disorders: No - INTEGUMENTARY Hx Dermatological Problems: No - MUSCULOSKELETAL/RHEUMATOLOGICAL Hx Falls: No - GASTROINTESTINAL Hx Gastrointestinal Disorders: No - GENITOURINARY/GYNECOLOGICAL Hx Genitourinary Disorders: No - PSYCHIATRIC Hx Substance Use: No - SURGICAL HISTORY Hx Appendectomy: Yes Other/Comment: nephrectomy, right ovary removed - ANESTHESIA Hx Anesthesia: Yes Hx Anesthesia Reactions: No Hx Malignant Hyperthermia: No Has any member of the family had a problem w/ anesthesia?: No Meds Allergies/Adverse Reactions: Allergies Allergy/AdvReac Type Severity Reaction Status Date / Time bia Allergy Intermediate SWELLING Verified 04/21/17 05:23 strawberry Allergy Intermediate RASH Verified 04/21/17 05:23 - Medications Medications: Current Medications Amlodipine Besylate (Norvasc) 10 mg PO DAILY [facility] Last Admin: 04/26/17 15:55 Dose: 10 mg Belladonna/Phenobarbital () 1 tab PO TID [facility] Last Admin: 04/26/17 18:57 Dose: 1 tab Hydrochlorothiazide (Hydrodiuril) 25 mg PO DAILY [facility] Last Admin: 04/26/17 15:55 Dose: 25 mg Pantoprazole Sodium 80 mg/ (Sodium Chloride) 100 mls @ 10 mls/hr IVPB .Q10H [facility] PRN Reason: 8 MG/HR Last Admin: 04/26/17 18:58 Dose: 10 mls/hr Dextrose/Sodium Chloride (Dextrose 5%/0.45% Ns 1000 Ml) 1,000 mls @ 100 mls/hr IV .Q10H [facility] Last Admin: 04/26/17 18:57 Dose: Not Given Metoclopramide HCl (Reglan) 5 mg IVP Q6H [facility] Last Admin: 04/26/17 21:01 Dose: Not Given Morphine Sulfate (Morphine) 2 mg IVP Q4H PRN PRN Reason: Pain, moderate (4-7) Morphine Sulfate (Morphine) 4 mg IVP Q4 PRN PRN Reason: SEVERE PAIN 8-10 Ondansetron HCl (Zofran Inj) 4 mg IVP Q6H PRN PRN Reason: Nausea/Vomiting Physical Exam - Constitutional Appears: Well, No Acute Distress - Head Exam Head Exam: ATRAUMATIC, NORMAL INSPECTION - Eye Exam Eye Exam: EOMI, Normal appearance - ENT Exam ENT Exam: Mucous Membranes Moist - Respiratory Exam Respiratory Exam: NORMAL BREATHING PATTERN - Cardiovascular Exam Cardiovascular Exam: REGULAR RHYTHM - GI/Abdominal Exam GI & Abdominal Exam: Soft - Exam Additional comments: Declined vaginal exam because she is currently taking bowel prep for procedure tomorrow - Extremities Exam Extremities exam: Positive for: normal inspection - Neurological Exam Neurological exam: Alert, Oriented x3 - Psychiatric Exam Psychiatric exam: Normal Affect, Normal Mood Results - Vital Signs Recent Vital Signs: Last Vital Signs Temp 100.0 F H 04/26/17 23:55 Pulse 97 H 04/26/17 23:55 Resp 20 04/26/17 23:55 BP 189/67 H 04/26/17 23:55 Pulse Ox 95 04/26/17 16:15 - Labs Result Diagrams: 04/26/17 08:21 04/26/17 08:21 Labs: Laboratory Results - last 24 hr 04/26/17 04/26/17 04/26/17 08:21 08:21 08:21 WBC 18.0 H RBC 4.22 Hgb 12.1 Hct 36.3 MCV 86.0 MCH 28.6 MCHC 33.3 RDW 14.6 H Plt Count 359 MPV 8.4 Neut % (Auto) 88.0 H Lymph % (Auto) 6.6 L [place] % (Auto) 4.2 Eos % (Auto) 0.6 Baso % (Auto) 0.6 Neut # (Auto) 15.9 H Lymph # (Auto) 1.2 [place] # (Auto) 0.8 Eos # (Auto) 0.1 Baso # (Auto) 0.1 Neutrophils % (Manual) 87 H Band Neutrophils % 2 Lymphocytes % (Manual) 6 L Monocytes % (Manual) 3 Metamyelocytes % 1 H Myelocytes % 1 H Platelet Estimate Normal Large Platelets Present RBC Morphology Normal PT 11.4 INR 1.0 APTT 24 Sodium 128 L Potassium 3.4 L Chloride 101 Carbon Dioxide 17 L Anion Gap 14 BUN 34 H Creatinine 1.3 H Est GFR ( Amer) 49 Est GFR (Non-Af Amer) 41 Random Glucose 62 L Calcium 7.6 L Total Bilirubin 0.3 AST 31 ALT 29 Alkaline Phosphatase 121 Total Protein 6.0 L Albumin 2.7 L Globulin 3.3 Albumin/Globulin Ratio 0.8 L Assessment & Plan - Assessment and Plan (Free Text) Assessment: 66 year old female with history of CAD, HTN who presented with abdominal pain CT abd pelvis showed: Left adnexal cystic lesions favored ovarian etiology. Extensive diverticulosis, Extensive cecal wall thickening possibly infectious or inflammatory. Small bowel wall thickening particularly of the duodenum. Left nephrectomy. Mild ascites, perihepatic and right upper quadrant. Small pelvic free fluid. (see full report) Transvaginal US showed: small amount of endometrial fluid.. Moderate fluid in the pelvis with low-level echoes. Complex left adnexal cystic structure. Multilocular cyst/cystic mass vs hydrosalpinx. Plan: -Patient labs and imaging reviewed -No surgical intervention at this time -Recommending patient follow up with [facility] outpatient for continued workup -Advised patient to importance of follow up as findings may be concerning for malignancy, patient expressed understanding -Will sign off at this time, please re-consult if needed -Discussed with Dr Karl Jones DO PGY-1 <Lu Barajas - Last Filed: 04/27/17 01:05> Meds - Medications Medications: Current Medications Amlodipine Besylate (Norvasc) 10 mg PO DAILY [facility] Last Admin: 04/26/17 15:55 Dose: 10 mg Belladonna/Phenobarbital () 1 tab PO TID [facility] Last Admin: 04/26/17 18:57 Dose: 1 tab Hydrochlorothiazide (Hydrodiuril) 25 mg PO DAILY [facility] Last Admin: 04/26/17 15:55 Dose: 25 mg Pantoprazole Sodium 80 mg/ (Sodium Chloride) 100 mls @ 10 mls/hr IVPB .Q10H [facility] PRN Reason: 8 MG/HR Last Admin: 04/26/17 18:58 Dose: 10 mls/hr Dextrose/Sodium Chloride (Dextrose 5%/0.45% Ns 1000 Ml) 1,000 mls @ 100 mls/hr IV .Q10H [facility] Last Admin: 04/26/17 18:57 Dose: Not Given Metoclopramide HCl (Reglan) 5 mg IVP Q6H [facility] Last Admin: 04/26/17 21:01 Dose: Not Given Morphine Sulfate (Morphine) 2 mg IVP Q4H PRN PRN Reason: Pain, moderate (4-7) Morphine Sulfate (Morphine) 4 mg IVP Q4 PRN PRN Reason: SEVERE PAIN 8-10 Ondansetron HCl (Zofran Inj) 4 mg IVP Q6H PRN PRN Reason: Nausea/Vomiting Results - Vital Signs Recent Vital Signs: Last Vital Signs Temp 100.0 F H 04/26/17 23:55 Pulse 97 H 04/26/17 23:55 Resp 20 04/26/17 23:55 BP 189/67 H 04/26/17 23:55 Pulse Ox 95 04/26/17 16:15 - Labs Result Diagrams: 04/26/17 08:21 04/26/17 08:21 Labs: Laboratory Results - last 24 hr 04/26/17 04/26/17 04/26/17 08:21 08:21 08:21 WBC 18.0 H RBC 4.22 Hgb 12.1 Hct 36.3 MCV 86.0 MCH 28.6 MCHC 33.3 RDW 14.6 H Plt Count 359 MPV 8.4 Neut % (Auto) 88.0 H Lymph % (Auto) 6.6 L [place] % (Auto) 4.2 Eos % (Auto) 0.6 Baso % (Auto) 0.6 Neut # (Auto) 15.9 H Lymph # (Auto) 1.2 [place] # (Auto) 0.8 Eos # (Auto) 0.1 Baso # (Auto) 0.1 Neutrophils % (Manual) 87 H Band Neutrophils % 2 Lymphocytes % (Manual) 6 L Monocytes % (Manual) 3 Metamyelocytes % 1 H Myelocytes % 1 H Platelet Estimate Normal Large Platelets Present RBC Morphology Normal PT 11.4 INR 1.0 APTT 24 Sodium 128 L Potassium 3.4 L Chloride 101 Carbon Dioxide 17 L Anion Gap 14 BUN 34 H Creatinine 1.3 H Est GFR ( Amer) 49 Est GFR (Non-Af Amer) 41 Random Glucose 62 L Calcium 7.6 L Total Bilirubin 0.3 AST 31 ALT 29 Alkaline Phosphatase 121 Total Protein 6.0 L Albumin 2.7 L Globulin 3.3 Albumin/Globulin Ratio 0.8 L Attending/Attestation - Attestation I have personally seen and examined this patient.: Yes I have fully participated in the care of the patient.: Yes I have reviewed all pertinent clinical information: Yes Notes (Text): 04/27/17 01:01 Patient admits to not having seen a cinder worker provider for >= 10, even 20 years: no Pap test nor mammogram over this time period. The importance of follow up with a cinder worker provider of her choice was stressed. It was made clear to patient, the possibility of pelvic malignancy exists. To this end, no surgical intervention is indicated at this time, without proper pre-op (if indicated) evaluation. Patient expressed an understanding; states that once she is discharged will do so. Patient is cleared from cinder worker perspective. Thank you for the pleasure of this consultation
[2017-04-27] MEDS: Pantoprazole 80 MG in Sodium Chloride 0.9% 100 ML IVPB SCH ×4 (02:30→23:31)
[2017-04-27] MEDS: Dextrose 5%/0.45% NS 1,000 ML IV SCH ×3 (05:16→14:23)
--- NOTE | 2017-04-27 05:49 | CON ---
DATE: 04/26/[address] Shantel Lakhani to Dr. Sherley Medina. I was called for GI consultation by the admitting medical team. The patient was seen and fully examined on 04/26/2017 as requested by the admitting MD. The entire chart is reviewed including, but not limited to the most recent lab and radiology study results, current and the previous medication list, current and the previous medical events, allergy to medication list, as well as all the available current and the previous medical records. Case discussed at length with the staff on the floor as well as the patient and daughter at the bedside. HISTORY OF PRESENT ILLNESS: This is a 66-year-old female, who was admitted to the hospital with severe crampy abdominal pain, abdominal distention, poor oral intake, generalized weakness and malaise with generalized muscle spasm, for which the patient had been receiving Flexeril. All associated with period of diarrhea, but no reported chills, fever, chest pain, palpitation or reported significant shortness of breath. PAST MEDICAL HISTORY: Including, but not limited to: 1. Hypertension. 2. Hyperlipidemia. 3. Renal stone. 4. Chronic lower back pain syndrome. 5. Peptic ulcer disease. 6. Colon polyps, diagnosed about three to four years ago. SOCIAL HISTORY: Positive for cigarette smoking, but denied recent history of alcohol intake. FAMILY HISTORY: Unknown. CURRENT MEDICATIONS: Medication lists were reviewed. ALLERGIES TO MEDICATION: UNCLEAR. LABORATORY DATA: Initial blood workup on admission showed leukocytosis of 17.0 with normal hemoglobin and hematocrit, with low sodium of 124 and increased BUN at 39 but normal creatinine, indicative of dehydration. Abdominal and pelvic scan was performed and official report is seen, including diffuse diverticulosis but no clear evidence of diverticulitis. PHYSICAL EXAMINATION: GENERAL: A 66-year-old female appeared to be somewhat anxious, reported recent body weight loss with poor appetite. VITAL SIGNS: Afebrile with pulse of 84, respiratory rate of 20 to 22, and blood pressure 140/76. HEENT: Shows mildly pale, dry oral mucous membrane, nonicteric sclerae. LYMPH NODES: No lymphadenitis or lymphadenopathy. LUNGS: Scattered mild crepitation with mildly decreased air entry bilaterally. HEART: Shows S1 and S2. ABDOMEN: Soft with generalized tenderness. No mass or organomegaly. No rebound tenderness or guarding. RECTAL: The patient refused. EXTREMITIES: With mild lower extremity edematous changes. No clubbing or cyanosis. NEUROLOGIC: No new reported neurological deficits, sensory or motor. No focal deficits. As we mentioned that the patient appeared to be very anxious and somewhat restless during my physical examination. IMPRESSION: 1. Re-exacerbation of peptic ulcer disease. 2. Rule out gastric versus duodenal ulcer. 3. Reported diverticulosis by CAT scan without clear evidence of acute diverticulitis. 4. Known history of, but not limited to hypertension, hyperlipidemia, renal stone, as well as chronic lower back pain syndrome. 5. Known history of colon polyps, diagnosed more than 3 years ago, unclear nature. SUGGESTIONS: 1. Agree with your plan. 2. Proton pump inhibitors IV. 3. Endoscopic evaluation of the GI tract due to the patient's clinical presentation and main complaint. 4. Again, the patient will be scheduled for endoscopic evaluation of the GI tract when she is more stable clinically. 5. Add complete stool workup. 6. Endoscopic evaluation of the GI tract lower endoscopy to be inserted. Thank you for letting me to participate in your patient's case management. Shantel Lakhani MD
[2017-04-27 07:26] LABS: BASO % 0.1 % (0.0-2.0); EOS # 0.1 K/uL (0.0-0.7); EOS % 0.4 % (0.0-4.0); HEMOGLOBIN 11.5 g/dL (11.0-16.0); LYMPH # 1.1 K/uL (1.0-4.3); LYMPH % 6.3 % (20.0-40.0); MEAN CELL VOLUME 84.6 fL (81.0-99.0); MEAN CORPUSCULAR HEMOGLOBIN 28.8 pg (27.0-31.0); MEAN CORPUSCULAR HGB CONC 34.1 g/dL (33.0-37.0); MEAN PLATELET VOLUME 8.5 fL (7.2-11.7); MONO # 0.9 K/uL (0.0-0.8); MONO % 5.1 % (0.0-10.0); NEUT # 15.6 K/uL (1.8-7.0); NEUT % 88.1 % (50.0-75.0); PLATELET COUNT 319 K/uL (130-400); RED CELL DISTRIBUTION WIDTH 14.5 % (11.5-14.5); WHITE BLOOD COUNT 17.7 K/uL (4.8-10.8)
[2017-04-27 08:17] LABS: ALB/GLOB RATIO 0.8 (1.0-2.1); ALBUMIN 2.3 g/dL (3.5-5.0); CALCIUM 7.4 mg/dl (8.6-10.4)
--- NOTE | 2017-04-27 08:36 | CP.PCM.PN ---
Subjective - Date & Time of Evaluation Date of Evaluation: 04/27/17 Time of Evaluation: 06:45 - Subjective Subjective: General surgery progress note for Dr. Nery Pulliam, PGY-1 Pt S & E at bedside. Pt reports ab pain continues, but improving. Refusing C-scope w/GI today, going for EGD. States she took part of the bowel prep and had small liquid stool. Denies N & V. Objective - Vital Signs/Intake and Output Vital Signs (last 24 hours): Temp Pulse Resp BP Pulse Ox 99.1 F 93 H 18 163/62 H 93 L 04/27/17 08:16 04/27/17 08:16 04/27/17 08:16 04/27/17 08:16 04/27/17 08:16 Intake and Output: 04/27/17 04/27/17 06:59 18:59 Intake Total 800 Balance 800 - Medications Medications: Current Medications Amlodipine Besylate (Norvasc) 10 mg PO DAILY [facility] Last Admin: 04/26/17 15:55 Dose: 10 mg Belladonna/Phenobarbital () 1 tab PO TID [facility] Last Admin: 04/26/17 18:57 Dose: 1 tab Hydrochlorothiazide (Hydrodiuril) 25 mg PO DAILY [facility] Last Admin: 04/26/17 15:55 Dose: 25 mg Pantoprazole Sodium 80 mg/ (Sodium Chloride) 100 mls @ 10 mls/hr IVPB .Q10H [facility] PRN Reason: 8 MG/HR Last Admin: 04/27/17 05:17 Dose: 10 mls/hr Dextrose/Sodium Chloride (Dextrose 5%/0.45% Ns 1000 Ml) 1,000 mls @ 100 mls/hr IV .Q10H [facility] Last Admin: 04/27/17 05:16 Dose: Not Given Metoclopramide HCl (Reglan) 5 mg IVP Q6H [facility] Last Admin: 04/27/17 02:23 Dose: Not Given Morphine Sulfate (Morphine) 2 mg IVP Q4H PRN PRN Reason: Pain, moderate (4-7) Morphine Sulfate (Morphine) 4 mg IVP Q4 PRN PRN Reason: SEVERE PAIN 8-10 Ondansetron HCl (Zofran Inj) 4 mg IVP Q6H PRN PRN Reason: Nausea/Vomiting - Labs Labs: 04/27/17 07:05 04/27/17 07:05 PT 11.4 SECONDS (9.7-12.2) 04/26/17 08:21 INR 1.0 04/26/17 08:21 APTT 24 SECONDS (21-34) 04/26/17 08:21 - Constitutional Appears: Non-toxic, No Acute Distress - Head Exam Head Exam: ATRAUMATIC, NORMAL INSPECTION, NORMOCEPHALIC - Eye Exam Eye Exam: EOMI, Normal appearance - ENT Exam ENT Exam: Mucous Membranes Moist, Normal Exam - Neck Exam Neck Exam: Full ROM, Normal Inspection - Respiratory Exam Respiratory Exam: NORMAL BREATHING PATTERN - Cardiovascular Exam Cardiovascular Exam: REGULAR RHYTHM, +S1, +S2 - GI/Abdominal Exam GI & Abdominal Exam: Distended (mildly), Soft, Tenderness (mild). absent: Firm , Guarding, Rigid - Extremities Exam Extremities Exam: Normal Inspection - Neurological Exam Neurological Exam: Alert, Awake, CN II-XII Intact, Oriented x3 - Psychiatric Exam Psychiatric exam: Normal Affect, Normal Mood - Skin Skin Exam: Dry, Intact, Normal Color, Warm Assessment and Plan - Assessment and Plan (Free Text) Assessment: 66F w/ab pain (improving), ab distention and recent melena Plan: FU EGD results Refused colonoscopy H/H WNL- stable Cont IV Abx- still w/WBC [address] w/contrast Pain control Cont PPI drip Further mgmt as per primary team DW attending Shasha, PGY-1
[2017-04-27] MEDS: Belladonna-Phenobarbital PO SCH ×3 (09:01→17:37)
[2017-04-27 10:32] LABS: TOTAL CELLS COUNTED 100
[2017-04-27 10:33] LABS: BANDS 2 % (0-2); BASOPHIL 1 % (0-2); LYMPHOCYTE 5 % (20-40); MONOCYTE 3 % (0-10); MYELOCYTE 1 % (0-0); NEUTROPHIL 88 % (50-75); PLATELET ESTIMATE NORMAL (NORMAL)
[2017-04-27] MEDS ORDERED: Midazolam 2 MG/2 ML VIAL ONE (11:33)
[2017-04-27] MEDS ORDERED: Propofol 10 mg/ml Inj (20 ML) ONE (11:33)
--- NOTE | 2017-04-27 12:46 | CP.PCM.PN ---
Subjective - Date & Time of Evaluation Date of Evaluation: 04/27/17 Time of Evaluation: 12:44 - Subjective Subjective: pt has endoscopy today refusing colonoscopy Objective - Vital Signs/Intake and Output Vital Signs (last 24 hours): Temp Pulse Resp BP Pulse Ox 98 F 79 24 157/65 H 99 04/27/17 11:55 04/27/17 12:25 04/27/17 12:25 04/27/17 12:25 04/27/17 12:25 Intake and Output: 04/27/17 04/27/17 06:59 18:59 Intake Total 800 600 Balance 800 600 - Medications Medications: Current Medications Amlodipine Besylate (Norvasc) 10 mg PO DAILY [facility] Last Admin: 04/27/17 09:01 Dose: Not Given Belladonna/Phenobarbital () 1 tab PO TID [facility] Last Admin: 04/27/17 09:01 Dose: Not Given Dicyclomine HCl (Bentyl) 10 mg PO BID [facility] Hydrochlorothiazide (Hydrodiuril) 25 mg PO DAILY [facility] Last Admin: 04/27/17 09:01 Dose: Not Given Pantoprazole Sodium 80 mg/ (Sodium Chloride) 100 mls @ 10 mls/hr IVPB .Q10H [facility] PRN Reason: 8 MG/HR Last Admin: 04/27/17 05:17 Dose: 10 mls/hr Dextrose/Sodium Chloride (Dextrose 5%/0.45% Ns 1000 Ml) 1,000 mls @ 100 mls/hr IV .Q10H [facility] Last Admin: 04/27/17 08:58 Dose: 100 mls/hr Metoclopramide HCl (Reglan) 5 mg IVP Q6H [facility] Last Admin: 04/27/17 08:57 Dose: 5 mg Morphine Sulfate (Morphine) 2 mg IVP Q4H PRN PRN Reason: Pain, moderate (4-7) Morphine Sulfate (Morphine) 4 mg IVP Q4 PRN PRN Reason: SEVERE PAIN 8-10 Ondansetron HCl (Zofran Inj) 4 mg IVP Q6H PRN PRN Reason: Nausea/Vomiting - Labs Labs: 04/27/17 07:05 04/27/17 07:05 PT 11.4 SECONDS (9.7-12.2) 04/26/17 08:21 INR 1.0 04/26/17 08:21 APTT 24 SECONDS (21-34) 04/26/17 08:21 - Constitutional Appears: Non-toxic - Head Exam Head Exam: NORMAL INSPECTION - Eye Exam Eye Exam: Normal appearance Pupil Exam: NORMAL ACCOMODATION - ENT Exam ENT Exam: Mucous Membranes Moist - Respiratory Exam Respiratory Exam: NORMAL BREATHING PATTERN - Cardiovascular Exam Cardiovascular Exam: REGULAR RHYTHM - Extremities Exam Extremities Exam: Normal Inspection - Back Exam Back Exam: NORMAL INSPECTION - Psychiatric Exam Psychiatric exam: Normal Affect - Skin Skin Exam: Normal Color Assessment and Plan - Assessment and Plan (Free Text) Assessment: uti gastritis s/p diarhea mass falopian tube Plan: cont antibiotics seen by director hedis f/u as out pt surgery evaluation noneed for surgery
[2017-04-27] MEDS: Morphine 4 MG/ML VIAL IVP PRN ×2 (15:40→20:05)
[2017-04-27] MEDS ORDERED: Albuterol-Ipratrop 3 mg / 0.5 (3 ml) UD INH STA (16:26)
[2017-04-27] MEDS ORDERED: Iohexol 240 (50 ml) PO ONE (19:00)
[2017-04-27] MEDS: Albuterol-Ipratrop 3 mg / 0.5 (3 ml) UD INH SCH (19:10)
--- NOTE | 2017-04-27 22:04 | CT ---
EXAM: CT Abdomen and Pelvis Without Intravenous Contrast EXAM DATE/TIME: Exam ordered 04/27/2017 3:00 PM CLINICAL HISTORY: 66 years old, female; Pain; Abdominal pain; Flank; Lower; Additional info: Ab pain TECHNIQUE: Axial computed tomography images of the abdomen and pelvis without intravenous contrast. All CT scans at this facility use one or more dose reduction techniques, viz.: automated exposure control; ma/kV adjustment per patient size (including targeted exams where dose is matched to indication; i.e. head); or iterative reconstruction technique. Coronal and sagittal reformatted images were created and reviewed. COMPARISON: No relevant prior studies available. FINDINGS: Lower thorax: There are small bilateral pleural effusions. There's a small pericardial effusion. The heart is mildly enlarged. Atelectasis/consolidation is noted at both lung bases. ABDOMEN: Liver: Unremarkable. Gallbladder and bile ducts: Unremarkable. No calcified stones. No ductal dilation. Pancreas: Unremarkable. No ductal dilation. Spleen: Unremarkable. No splenomegaly. Adrenals: Unremarkable. No mass. Kidneys and ureters: The left kidney is absent. Surgical clips are noted in the retroperitoneum on the left. No obstructing stones. No hydronephrosis. Stomach and bowel: There are multiple colonic diverticula. Moderately dilated small bowel loops are seen in the left midabdomen. Wall thickening is noted of this first and second portion the duodenum. Mild wall thickening is noted of the proximal jejunum. Appendix: Not seen as a separate structure. PELVIS: Bladder: Unremarkable. No stones. Reproductive: A complex cystic mass is noted in the left adnexa measuring 4.7 x 4.4 by 3.7 cm.. Punctate calcification is noted in the left adnexal mass. Small calcifications noted in the uterus. The right ovary is not definitely seen as a separate structure. ABDOMEN and PELVIS: Intraperitoneal space: There is perihepatic ascites. Moderate ascites seen in the pelvis. No free air. Bones/joints: No acute fracture. No dislocation. Soft tissues: There is mild body wall edema. Vasculature: Unremarkable. No abdominal aortic aneurysm. Lymph nodes: Unremarkable. No enlarged lymph nodes. IMPRESSION: 1. Complex cystic mass noted in the left adnexa. A serous cystadenocarcinoma is among the diagnostic considerations. Pelvic ultrasound might be helpful. 2. Small bilateral pleural effusions with anasarca,intra-abdominal ascites a small pericardial effusion. Given the appearance of a left cystic adnexal mass, malignant ascites is among the diagnostic considerations. 3. Mild dilatation of proximal small bowel with mural thickening of the duodenum and proximal jejunum. Enteritis is among the diagnostic considerations. 4. Atelectasis/consolidation at both lung bases. 5. Sigmoid colonic diverticulosis. 6. Status post left nephrectomy.
[2017-04-28] MEDS: Dextrose 5%/0.45% NS 1,000 ML IV SCH (00:29)
[2017-04-28] MEDS: Albuterol-Ipratrop 3 mg / 0.5 (3 ml) UD INH SCH ×4 (01:39→19:38)
[2017-04-28] MEDS: Morphine 4 MG/ML VIAL IVP PRN (05:13)
[2017-04-28] MEDS ORDERED: Promethazine 12.5 mg/10 ml Syrup PO STA (05:48)
[2017-04-28] MEDS: Pantoprazole 80 MG in Sodium Chloride 0.9% 100 ML IVPB SCH (09:03)
--- NOTE | 2017-04-28 09:05 | CP.PCM.PN ---
Subjective - Date & Time of Evaluation Date of Evaluation: 04/28/17 Time of Evaluation: 09:03 - Subjective Subjective: pt has cough wheesing abd pain mor distended Objective - Vital Signs/Intake and Output Vital Signs (last 24 hours): Temp Pulse Resp BP Pulse Ox 99.2 F 80 20 135/61 97 04/28/17 00:35 04/28/17 00:35 04/28/17 00:35 04/28/17 00:35 04/28/17 00:35 Intake and Output: 04/28/17 04/28/17 06:59 18:59 Intake Total 280 Balance 280 - Medications Medications: Current Medications Albuterol/Ipratropium (Duoneb 3 Mg/0.5 Mg (3 Ml) Ud) 3 ml INH RQ6 [facility] Last Admin: 04/28/17 01:39 Dose: 3 ml Amlodipine Besylate (Norvasc) 10 mg PO DAILY [facility] Last Admin: 04/27/17 09:01 Dose: Not Given Belladonna/Phenobarbital () 1 tab PO TID [facility] Last Admin: 04/27/17 17:37 Dose: Not Given Dicyclomine HCl (Bentyl) 10 mg PO BID [facility] Last Admin: 04/27/17 17:37 Dose: Not Given Hydrochlorothiazide (Hydrodiuril) 25 mg PO DAILY [facility] Last Admin: 04/27/17 09:01 Dose: Not Given Pantoprazole Sodium 80 mg/ (Sodium Chloride) 100 mls @ 10 mls/hr IVPB .Q10H [facility] PRN Reason: 8 MG/HR Last Admin: 04/27/17 23:31 Dose: Not Given Dextrose/Sodium Chloride (Dextrose 5%/0.45% Ns 1000 Ml) 1,000 mls @ 100 mls/hr IV .Q10H [facility] Last Admin: 04/28/17 00:29 Dose: 100 mls/hr Ceftriaxone Sodium (Rocephin 1 Gram Ivpb) 1 gm in 100 mls @ 100 mls/hr IVPB DAILY [facility] Metoclopramide HCl (Reglan) 5 mg IVP Q6H [facility] Last Admin: 04/28/17 02:15 Dose: Not Given Morphine Sulfate (Morphine) 2 mg IVP Q4H PRN PRN Reason: Pain, moderate (4-7) Last Admin: 04/28/17 05:13 Dose: 2 mg Morphine Sulfate (Morphine) 4 mg IVP Q4 PRN PRN Reason: SEVERE PAIN 8-10 Ondansetron HCl (Zofran Inj) 4 mg IVP Q6H PRN PRN Reason: Nausea/Vomiting - Labs Labs: 04/27/17 07:05 04/27/17 07:05 PT 11.4 SECONDS (9.7-12.2) 04/26/17 08:21 INR 1.0 04/26/17 08:21 APTT 24 SECONDS (21-34) 04/26/17 08:21 - Constitutional Appears: In Acute Distress - Head Exam Head Exam: ATRAUMATIC - Eye Exam Eye Exam: Normal appearance - ENT Exam ENT Exam: Mucous Membranes Moist - Neck Exam Neck Exam: Full ROM - Respiratory Exam Respiratory Exam: Rhonchi - Cardiovascular Exam Cardiovascular Exam: REGULAR RHYTHM - GI/Abdominal Exam GI & Abdominal Exam: Distended, Firm, Tenderness - Rectal Exam Rectal Exam: NORMAL INSPECTION - Exam Additional comments: pelvic mass - Extremities Exam Extremities Exam: Normal Inspection - Back Exam Back Exam: NORMAL INSPECTION - Neurological Exam Neurological Exam: Alert, Awake - Psychiatric Exam Psychiatric exam: Normal Affect - Skin Skin Exam: Normal Color Assessment and Plan - Assessment and Plan (Free Text) Assessment: cough wheesing diarhea abd pain ascitis pelv ic mass lecocytosis Plan: surgery 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
--- NOTE | 2017-04-28 09:12 | PN ---
DATE: LOCATION: [facility], bed A. SUBJECTIVE: This is a 66-year-old female seen and examined in rounds early today with intermittent period of abdominal pain, less than before, mainly in the left lower quadrant with mild nausea and dyspepsia. No reported active bleeding, chest pain, or palpitation. The patient had a repeat CAT scan of the abdomen and pelvis yesterday indicative of complex cystic mass in the left adnexa with small bilateral pleural effusion and abdominal ascites with small pericardial effusion as well as mild distention of the proximal small bowel with sigmoid colon diverticulosis, with status post left nephrectomy. The entire chart is reviewed including but not limited to the most recent lab and radiology study results, current and the previous medication list, current and the previous medical events, and today's lab is still pending. The patient reported to have elevated CA 125 to 89.2, but normal CEA and normal CA 19-9. PHYSICAL EXAMINATION: GENERAL: A 66-year-old female, awake, alert and oriented. VITAL SIGNS: Low-grade temperature of 99.2, pulse of 82, respiratory rate 20 to 22, blood pressure 140/64. HEENT: Showed dry mucous membrane, nonicteric sclerae. LUNGS: Few scattered crepitation, decreased air entry at bases. HEART: Positive S1 and S2. ABDOMEN: Soft, bowel sounds are present with mild generalized tenderness, but mainly in the left lower quadrant and mid epigastric area. No mass or organomegaly. No rebound tenderness or guarding. EXTREMITIES: Without edema, clubbing, or cyanosis. NEUROLOGIC: No reported neurological deficits, sensory or motor. IMPRESSION: 1. Peptic ulcer disease, post upper endoscopy, pathology report still pending. 2. Diverticulosis with possible early stage of diverticulitis. 3. Left adnexal mass lesion. 4. Known history of insomnia, hypertension, hyperlipidemia, with renal stone. 5. Known history of chronic lower back pain syndrome with history of colon polyps, diagnosed more than 3 years ago. SUGGESTIONS: 1. Continue current management. 2. Vancomycin p.o. 3. Oncology/Hematology consult. 4. Clear liquid diet only until the patient is more stable clinically. Shantel Lakhani MD
[2017-04-28 09:19] LABS: BASO # 0.2 K/uL (0.0-0.2); BASO % 0.8 % (0.0-2.0); EOS % 0.1 % (0.0-4.0); HEMOGLOBIN 11.3 g/dL (11.0-16.0); LYMPH # 1.4 K/uL (1.0-4.3); MEAN CELL VOLUME 86.2 fL (81.0-99.0); MEAN CORPUSCULAR HEMOGLOBIN 27.9 pg (27.0-31.0); MEAN CORPUSCULAR HGB CONC 32.4 g/dL (33.0-37.0); MEAN PLATELET VOLUME 8.5 fL (7.2-11.7); MONO # 1.5 K/uL (0.0-0.8); MONO % 5.2 % (0.0-10.0); NEUT # 25.7 K/uL (1.8-7.0); NEUT % 88.9 % (50.0-75.0); PLATELET COUNT 360 K/uL (130-400); RBC 4.06 Mil/uL (3.80-5.20); WHITE BLOOD COUNT 28.9 K/uL (4.8-10.8)
[2017-04-28 09:36] LABS: ALB/GLOB RATIO 0.8 (1.0-2.1); ALBUMIN 2.1 g/dL (3.5-5.0); CALCIUM 7.1 mg/dl (8.6-10.4)
[2017-04-28 09:56] LABS: SQUAMOUS EPITHIAL 24 /hpf (0-5); URINE BACTERIA RARE (<OCC); URINE BILIRUBIN NEGATIVE (NEGATIVE); URINE BLOOD 2+ (NEGATIVE); URINE CLARITY Hazy (Clear); URINE COLOR Amber (YELLOW); URINE GLUCOSE (UA) NORMAL (Normal); URINE LEUKOCYTE ESTERASE 2+ Leu/uL (Negative); URINE PROTEIN 3+ mg/dL (NEGATIVE); URINE UROBILINOGEN NORMAL mg/dL (0.2-1.0)
[2017-04-28] MEDS ORDERED: cefTRIAXone 1 gm 1 GM/100 ML BAG IVPB SCH (10:00)
[2017-04-28] MEDS: Belladonna-Phenobarbital PO SCH ×3 (10:33→19:00)
[2017-04-28 11:21] LABS: EOSINOPHIL 1 % (0-4); LYMPHOCYTE 9 % (20-40); MONOCYTE 4 % (0-10); NEUTROPHIL 86 % (50-75); PLATELET ESTIMATE NORMAL (NORMAL); TOTAL CELLS COUNTED 100
[2017-04-28 11:22] LABS: ANISOCYTOSIS SLIGHT; MICROCYTOSIS SLIGHT; OVALOCYTES SLIGHT; SPHEROCYTES SLIGHT
--- NOTE | 2017-04-28 12:48 | CP.PCM.CON ---
History of Present Illness - History of Present Illness History of Present Illness: Vascular surgery consult note for Dr. Nakul Pulliam, PGY-1 Pt S & E at bedside with attending. 66F w/PMH sig for carotid artery disease & HTN consulted for ascites, possible pelvic mass. Pt originally admitted for abdominal pain, which has been unchanged. Admits to having flatus, but feels bloated. Denies N & V, F & C, other complaints. CT ab w/Moderate ascites seen in the pelvis. PMH: carotid artery disease, HTN PSH: Nephrectomy, appendectomy, ovarian excision All: Strawberries, mangos SH: Admits 1/2ppd x 60yrs, denies ETOH or illicit drugs PMD: [place] Review of Systems - Review of Systems All systems: reviewed and no additional remarkable complaints except - Constitutional Constitutional: absent: Chills, Fever - EENT Eyes: absent: Change in Vision Nose/Mouth/Throat: absent: Sore Throat - Cardiovascular Cardiovascular: absent: Chest Pain, Palpitations - Gastrointestinal Gastrointestinal: Abdominal Pain, Bloating. absent: Nausea, Vomiting - Genitourinary Genitourinary: absent: Change in Urinary Stream - Neurological Neurological: absent: Weakness - Psychiatric Psychiatric: absent: Change in Appetite Past Patient History - Infectious Disease Hx of Infectious Diseases: None - Past Social History Smoking Status: Light Smoker < 10 Cigarettes Daily - CARDIAC Hx Cardiac Disorders: Yes Hx Hypercholesterolemia: Yes Hx Hypertension: Yes - PULMONARY Hx Respiratory Disorders: No - NEUROLOGICAL Hx Neurological Disorder: No - RENAL Hx Chronic Kidney Disease: Yes Hx Kidney Stones: Yes - ENDOCRINE/METABOLIC Hx Endocrine Disorders: No - HEMATOLOGICAL/ONCOLOGICAL Hx Blood Disorders: No - INTEGUMENTARY Hx Dermatological Problems: No - MUSCULOSKELETAL/RHEUMATOLOGICAL Hx Falls: No - GASTROINTESTINAL Hx Gastrointestinal Disorders: No - GENITOURINARY/GYNECOLOGICAL Hx Genitourinary Disorders: No - PSYCHIATRIC Hx Substance Use: No - SURGICAL HISTORY Hx Appendectomy: Yes Other/Comment: nephrectomy, right ovary removed - ANESTHESIA Hx Anesthesia: Yes Hx Anesthesia Reactions: No Hx Malignant Hyperthermia: No Has any member of the family had a problem w/ anesthesia?: No Meds Allergies/Adverse Reactions: Allergies Allergy/AdvReac Type Severity Reaction Status Date / Time bia Allergy Intermediate SWELLING Verified 04/21/17 05:23 strawberry Allergy Intermediate RASH Verified 04/21/17 05:23 - Medications Medications: Current Medications Albuterol/Ipratropium (Duoneb 3 Mg/0.5 Mg (3 Ml) Ud) 3 ml INH RQ6 [facility] Last Admin: 04/28/17 01:39 Dose: 3 ml Amlodipine Besylate (Norvasc) 10 mg PO DAILY [facility] Last Admin: 04/28/17 10:33 Dose: 10 mg Belladonna/Phenobarbital () 1 tab PO TID [facility] Last Admin: 04/28/17 10:33 Dose: 1 tab Dicyclomine HCl (Bentyl) 10 mg PO BID [facility] Last Admin: 04/28/17 10:33 Dose: 10 mg Pantoprazole Sodium 80 mg/ (Sodium Chloride) 100 mls @ 10 mls/hr IVPB .Q10H [facility] PRN Reason: 8 MG/HR Last Admin: 04/28/17 09:03 Dose: 10 mls/hr Ceftriaxone Sodium 1 gm/ (Sodium Chloride) 100 mls @ 100 mls/hr IVPB DAILY [facility] Last Admin: 04/28/17 10:45 Dose: 100 mls/hr Metoclopramide HCl (Reglan) 5 mg IVP Q6H [facility] Last Admin: 04/28/17 09:07 Dose: 5 mg Morphine Sulfate (Morphine) 2 mg IVP Q4H PRN PRN Reason: Pain, moderate (4-7) Last Admin: 04/28/17 05:13 Dose: 2 mg Morphine Sulfate (Morphine) 4 mg IVP Q4 PRN PRN Reason: SEVERE PAIN 8-10 Ondansetron HCl (Zofran Inj) 4 mg IVP Q6H PRN PRN Reason: Nausea/Vomiting Physical Exam - Constitutional Appears: Non-toxic, No Acute Distress - Head Exam Head Exam: ATRAUMATIC, NORMAL INSPECTION, NORMOCEPHALIC - Eye Exam Eye Exam: EOMI, Normal appearance - ENT Exam ENT Exam: Mucous Membranes Moist, Normal Exam - Neck Exam Neck exam: Positive for: Full Rom, Normal Inspection - Respiratory Exam Respiratory Exam: Rhonchi - Cardiovascular Exam Cardiovascular Exam: REGULAR RHYTHM, +S1, +S2 - GI/Abdominal Exam GI & Abdominal Exam: Distended (mildly), Firm. absent: Guarding, Rebound, Rigid , Tenderness - Extremities Exam Extremities exam: Positive for: pedal edema (scant, bilateral) - Neurological Exam Neurological exam: Alert, CN II-XII Intact, Oriented x3 - Psychiatric Exam Psychiatric exam: Normal Affect, Normal Mood - Skin Skin Exam: Dry, Intact, Normal Color, Warm Results - Vital Signs Recent Vital Signs: Last Vital Signs Temp 99.2 F 04/28/17 00:35 Pulse 80 04/28/17 00:35 Resp 20 04/28/17 00:35 BP 132/51 L 04/28/17 10:25 Pulse Ox 97 04/28/17 00:35 - Labs Result Diagrams: 04/28/17 09:09 04/28/17 09:09 Labs: Laboratory Results - last 24 hr 04/27/17 04/28/17 04/28/17 07:05 09:09 09:09 WBC 28.9 H D RBC 4.06 Hgb 11.3 Hct 35.0 MCV 86.2 MCH 27.9 MCHC 32.4 L RDW 15.0 H Plt Count 360 MPV 8.5 Neut % (Auto) 88.9 H Lymph % (Auto) 5.0 L [place] % (Auto) 5.2 Eos % (Auto) 0.1 Baso % (Auto) 0.8 Neut # (Auto) 25.7 H Lymph # (Auto) 1.4 [place] # (Auto) 1.5 H Eos # (Auto) 0.0 Baso # (Auto) 0.2 Neutrophils % (Manual) 86 H Lymphocytes % (Manual) 9 L Monocytes % (Manual) 4 Eosinophils % (Manual) 1 Platelet Estimate Normal Anisocytosis (manual) Slight Microcytosis (manual) Slight Spherocytes Slight Ovalocytes Slight Sodium 125 L 123 L Potassium 4.0 4.4 Chloride 103 101 Carbon Dioxide 16 L 15 L Anion Gap 11 11 BUN 33 H 35 H Creatinine 1.5 H 2.3 H Est GFR ( Amer) 42 26 Est GFR (Non-Af Amer) 35 21 Random Glucose 120 H 129 H Calcium 7.4 L 7.1 L Total Bilirubin 0.2 0.3 AST 54 H D 14 D ALT 30 23 Alkaline Phosphatase 126 92 Total Protein 5.2 L 5.0 L Albumin 2.3 L 2.1 L Globulin 2.9 2.8 Albumin/Globulin Ratio 0.8 L 0.8 L Carcinoembryonic Ag 1.0 CA 19-9 Antigen 2.4 CA 125 Antigen 89.2 H Urine Color Urine Clarity Urine pH Ur Specific [place] Urine Protein Urine Glucose (UA) Urine Ketones Urine Blood Urine Nitrate Urine Bilirubin Urine Urobilinogen Ur Leukocyte Esterase Urine WBC (Auto) Urine RBC (Auto) Ur Squamous Epith Cells Urine Bacteria Urine Yeast (Budding) 04/28/17 09:40 WBC RBC Hgb Hct MCV MCH MCHC RDW Plt Count MPV Neut % (Auto) Lymph % (Auto) [place] % (Auto) Eos % (Auto) Baso % (Auto) Neut # (Auto) Lymph # (Auto) [place] # (Auto) Eos # (Auto) Baso # (Auto) Neutrophils % (Manual) Lymphocytes % (Manual) Monocytes % (Manual) Eosinophils % (Manual) Platelet Estimate Anisocytosis (manual) Microcytosis (manual) Spherocytes Ovalocytes Sodium Potassium Chloride Carbon Dioxide Anion Gap BUN Creatinine Est GFR ( Amer) Est GFR (Non-Af Amer) Random Glucose Calcium Total Bilirubin AST ALT Alkaline Phosphatase Total Protein Albumin Globulin Albumin/Globulin Ratio Carcinoembryonic Ag CA 19-9 Antigen CA 125 Antigen Urine Color [place] Urine Clarity Hazy Urine pH 5.0 Ur Specific [place] 1.015 Urine Protein 3+ H Urine Glucose (UA) Normal Urine Ketones Negative Urine Blood 2+ H Urine Nitrate Negative Urine Bilirubin Negative Urine Urobilinogen Normal Ur Leukocyte Esterase 2+ H Urine WBC (Auto) 35 H Urine RBC (Auto) 31 H Ur Squamous Epith Cells 24 H Urine Bacteria Rare Urine Yeast (Budding) Occ H Assessment & Plan - Assessment and Plan (Free Text) Assessment: 66F w/ascites as seen on CT of abdomen, pelvic mass Plan: Assessed pt w/bedside ultrasound, unable to appreciate drainable ascitic fluid collection Recommend IR paracentesis 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
--- NOTE | 2017-04-28 12:59 | CP.PCM.PN ---
Subjective - Date & Time of Evaluation Date of Evaluation: 04/28/17 Time of Evaluation: 07:30 - Subjective Subjective: General surgery progress note for Dr. Nery Pulliam, PGY-1 Pt S & E at bedside. Pt reports abdominal pain is the same, having small amount of flatus. Denies N & V, F &C. Per nursing - had urinary retention overnight, required straight cath w/300 cc UOP. Objective - Vital Signs/Intake and Output Vital Signs (last 24 hours): Temp Pulse Resp BP Pulse Ox 99.2 F 80 20 132/51 L 97 04/28/17 00:35 04/28/17 00:35 04/28/17 00:35 04/28/17 10:25 04/28/17 00:35 Intake and Output: 04/28/17 04/28/17 06:59 18:59 Intake Total 280 Balance 280 - Medications Medications: Current Medications Albuterol/Ipratropium (Duoneb 3 Mg/0.5 Mg (3 Ml) Ud) 3 ml INH RQ6 [facility] Last Admin: 04/28/17 01:39 Dose: 3 ml Amlodipine Besylate (Norvasc) 10 mg PO DAILY [facility] Last Admin: 04/28/17 10:33 Dose: 10 mg Belladonna/Phenobarbital () 1 tab PO TID [facility] Last Admin: 04/28/17 10:33 Dose: 1 tab Dicyclomine HCl (Bentyl) 10 mg PO BID [facility] Last Admin: 04/28/17 10:33 Dose: 10 mg Pantoprazole Sodium 80 mg/ (Sodium Chloride) 100 mls @ 10 mls/hr IVPB .Q10H [facility] PRN Reason: 8 MG/HR Last Admin: 04/28/17 09:03 Dose: 10 mls/hr Ceftriaxone Sodium 1 gm/ (Sodium Chloride) 100 mls @ 100 mls/hr IVPB DAILY [facility] Last Admin: 04/28/17 10:45 Dose: 100 mls/hr Metoclopramide HCl (Reglan) 5 mg IVP Q6H [facility] Last Admin: 04/28/17 09:07 Dose: 5 mg Morphine Sulfate (Morphine) 2 mg IVP Q4H PRN PRN Reason: Pain, moderate (4-7) Last Admin: 04/28/17 05:13 Dose: 2 mg Morphine Sulfate (Morphine) 4 mg IVP Q4 PRN PRN Reason: SEVERE PAIN 8-10 Ondansetron HCl (Zofran Inj) 4 mg IVP Q6H PRN PRN Reason: Nausea/Vomiting - Labs Labs: 04/28/17 09:09 04/28/17 09:09 PT 11.4 SECONDS (9.7-12.2) 04/26/17 08:21 INR 1.0 04/26/17 08:21 APTT 24 SECONDS (21-34) 04/26/17 08:21 - Constitutional Appears: Non-toxic, No Acute Distress - Head Exam Head Exam: ATRAUMATIC, NORMAL INSPECTION, NORMOCEPHALIC - Eye Exam Eye Exam: EOMI, Normal appearance - ENT Exam ENT Exam: Mucous Membranes Moist, Normal Exam - Neck Exam Neck Exam: Full ROM, Normal Inspection - Respiratory Exam Respiratory Exam: Rhonchi - Cardiovascular Exam Cardiovascular Exam: REGULAR RHYTHM - GI/Abdominal Exam GI & Abdominal Exam: Distended (mildly), Soft. absent: Firm, Guarding, Rigid, Tenderness Additional comments: well healed linear scar over RLQ - Extremities Exam Extremities Exam: Pedal Edema (mild, bilateral) - Neurological Exam Neurological Exam: Alert, Awake, CN II-XII Intact, Oriented x3 - Psychiatric Exam Psychiatric exam: Normal Affect, Normal Mood - Skin Skin Exam: Dry, Intact, Normal Color, Warm Assessment and Plan - Assessment and Plan (Free Text) Assessment: 66F w/ab pain (stable), ab distention and recent melena Plan: EGD results- Grade A reflux esophagitis, small hiatal hernia, erythematous mucosa in antrum- bx, and erythematous duodenopathy FU EGD bx Advanced to [facility] as per GI Refused colonoscopy H/H WNL- stable Cont IV Abx- Leukocytosis increasing CT w/complex L adenax cystic mass Pain control Cont PPI drip Further mgmt as per primary team Recommend district administrator onc consult for pelvic mass Will follow [facility]IF attending Shasha, PGY-1
[2017-04-28] MEDS: Pantoprazole 40 mg EC Tab PO SCH (13:53)
[2017-04-28] MEDS ORDERED: MethylPREDNISolone 40 mg Vial IVP STA (14:48)
[2017-04-28] MEDS ORDERED: Magnesium Sulfate 1 gm in D5W 1 GM/100 ML BAG IVPB ONE (14:50)
[2017-04-28 15:29] LABS: ALB/GLOB RATIO 0.8 (1.0-2.1); ALBUMIN 2.3 g/dL (3.5-5.0); CALCIUM 7.6 mg/dl (8.6-10.4)
--- NOTE | 2017-04-28 15:30 | CP.PCM.CON ---
History of Present Illness - History of Present Illness History of Present Illness: 66 y/o female with pmx of smoking (more than 30 pack years), h/o athrosclerotic vascular disease, h/o COPD, h/o CKD, h/o hyponatremia (on HCTZ), h/o chronic diastolic heart failure admitted to [facility] for abdominal fluid/ distension/pain. Patient being evaluated by primary team. Patient received IVF during hosptial admission. Patient started wheezing today. ICU consult requested by Dr. Medina for above. Patient seen and examined at bedside. Patient breathing comfortbaly with upper respiratory sounds. denies any chest pain, c/o leg swelling during hospital stay, saturating 98% on room air. Patient deneis any chest pain, denies any dizzines, (+)cough Pmx: COPD/CHF/HTN/CKD/ASHD PSH: Nephrectomy, appendectomy, ovarian excision Social hx: smoking, denies ETOH or illicit drug use allergies: bia/strawberries Review of Systems - Cardiovascular Cardiovascular: Leg Edema. absent: Irregular Heart Rhythm - Respiratory Respiratory: Wheezing. absent: Stridor, Pain on Inspiration - Gastrointestinal Gastrointestinal: Bloating, Early Satiety Past Patient History - Infectious Disease Hx of Infectious Diseases: None - Past Social History Smoking Status: Light Smoker < 10 Cigarettes Daily - CARDIAC Hx Cardiac Disorders: Yes Hx Hypercholesterolemia: Yes Hx Hypertension: Yes - PULMONARY Hx Respiratory Disorders: No - NEUROLOGICAL Hx Neurological Disorder: No - RENAL Hx Chronic Kidney Disease: Yes Hx Kidney Stones: Yes - ENDOCRINE/METABOLIC Hx Endocrine Disorders: No - HEMATOLOGICAL/ONCOLOGICAL Hx Blood Disorders: No - INTEGUMENTARY Hx Dermatological Problems: No - MUSCULOSKELETAL/RHEUMATOLOGICAL Hx Falls: No - GASTROINTESTINAL Hx Gastrointestinal Disorders: No - GENITOURINARY/GYNECOLOGICAL Hx Genitourinary Disorders: No - PSYCHIATRIC Hx Substance Use: No - SURGICAL HISTORY Hx Appendectomy: Yes Other/Comment: nephrectomy, right ovary removed - ANESTHESIA Hx Anesthesia: Yes Hx Anesthesia Reactions: No Hx Malignant Hyperthermia: No Has any member of the family had a problem w/ anesthesia?: No Meds Allergies/Adverse Reactions: Allergies Allergy/AdvReac Type Severity Reaction Status Date / Time bia Allergy Intermediate SWELLING Verified 04/21/17 05:23 strawberry Allergy Intermediate RASH Verified 04/21/17 05:23 - Medications Medications: Current Medications Albuterol/Ipratropium (Duoneb 3 Mg/0.5 Mg (3 Ml) Ud) 3 ml INH RQ6 [facility] Last Admin: 04/28/17 13:21 Dose: 3 ml Amlodipine Besylate (Norvasc) 10 mg PO DAILY [facility] Last Admin: 04/28/17 10:33 Dose: 10 mg Belladonna/Phenobarbital () 1 tab PO TID [facility] Last Admin: 04/28/17 15:15 Dose: 1 tab Dicyclomine HCl (Bentyl) 10 mg PO BID [facility] Last Admin: 04/28/17 10:33 Dose: 10 mg Furosemide (Lasix) 40 mg IVP DAILY [facility] Ceftriaxone Sodium 1 gm/ (Sodium Chloride) 100 mls @ 100 mls/hr IVPB DAILY [facility] Last Admin: 04/28/17 10:45 Dose: 100 mls/hr Methylprednisolone (Solu-Medrol) 40 mg IVP Q8H [facility] Metoclopramide HCl (Reglan) 5 mg IVP Q6H [facility] Last Admin: 04/28/17 15:17 Dose: 5 mg Ondansetron HCl (Zofran Inj) 4 mg IVP Q6H PRN PRN Reason: Nausea/Vomiting Pantoprazole Sodium (Protonix Ec Tab) 40 mg PO DAILY [facility] Last Admin: 04/28/17 13:53 Dose: 40 mg Physical Exam - Constitutional Appears: Non-toxic - Head Exam Head Exam: ATRAUMATIC, NORMAL INSPECTION, NORMOCEPHALIC - Eye Exam Eye Exam: Normal appearance - Respiratory Exam Respiratory Exam: Rales, NORMAL BREATHING PATTERN Additional comments: roncherous sounds transmittd from upper airway/neck - Cardiovascular Exam Cardiovascular Exam: REGULAR RHYTHM, +S1, +S2, +S4 - GI/Abdominal Exam GI & Abdominal Exam: Distended - Skin Skin Exam: Normal Color Results - Vital Signs Recent Vital Signs: Last Vital Signs Temp 99.2 F 04/28/17 00:35 Pulse 80 04/28/17 00:35 Resp 20 04/28/17 00:35 BP 132/51 L 04/28/17 10:25 Pulse Ox 97 04/28/17 00:35 - Labs Result Diagrams: 04/28/17 09:09 04/28/17 09:09 Labs: Laboratory Results - last 24 hr 04/28/17 04/28/17 04/28/17 09:09 09:09 09:40 WBC 28.9 H D RBC 4.06 Hgb 11.3 Hct 35.0 MCV 86.2 MCH 27.9 MCHC 32.4 L RDW 15.0 H Plt Count 360 MPV 8.5 Neut % (Auto) 88.9 H Lymph % (Auto) 5.0 L [place] % (Auto) 5.2 Eos % (Auto) 0.1 Baso % (Auto) 0.8 Neut # (Auto) 25.7 H Lymph # (Auto) 1.4 [place] # (Auto) 1.5 H Eos # (Auto) 0.0 Baso # (Auto) 0.2 Neutrophils % (Manual) 86 H Lymphocytes % (Manual) 9 L Monocytes % (Manual) 4 Eosinophils % (Manual) 1 Platelet Estimate Normal Anisocytosis (manual) Slight Microcytosis (manual) Slight Spherocytes Slight Ovalocytes Slight Sodium 123 L Potassium 4.4 Chloride 101 Carbon Dioxide 15 L Anion Gap 11 BUN 35 H Creatinine 2.3 H Est GFR ( Amer) 26 Est GFR (Non-Af Amer) 21 Random Glucose 129 H Lactic Acid Calcium 7.1 L Total Bilirubin 0.3 AST 14 D ALT 23 Alkaline Phosphatase 92 NT-Pro-B Natriuret Pep Total Protein 5.0 L Albumin 2.1 L Globulin 2.8 Albumin/Globulin Ratio 0.8 L Urine Color [place] Urine Clarity Hazy Urine pH 5.0 Ur Specific [place] 1.015 Urine Protein 3+ H Urine Glucose (UA) Normal Urine Ketones Negative Urine Blood 2+ H Urine Nitrate Negative Urine Bilirubin Negative Urine Urobilinogen Normal Ur Leukocyte Esterase 2+ H Urine WBC (Auto) 35 H Urine RBC (Auto) 31 H Ur Squamous Epith Cells 24 H Urine Bacteria Rare Urine Yeast (Budding) Occ H 18 04/28/17 14:54 14:54 WBC RBC Hgb Hct MCV MCH MCHC RDW Plt Count MPV Neut % (Auto) Lymph % (Auto) [place] % (Auto) Eos % (Auto) Baso % (Auto) Neut # (Auto) Lymph # (Auto) [place] # (Auto) Eos # (Auto) Baso # (Auto) Neutrophils % (Manual) Lymphocytes % (Manual) Monocytes % (Manual) Eosinophils % (Manual) Platelet Estimate Anisocytosis (manual) Microcytosis (manual) Spherocytes Ovalocytes Sodium Potassium Chloride Carbon Dioxide Anion Gap BUN Creatinine Est GFR ( Amer) Est GFR (Non-Af Amer) Random Glucose Lactic Acid 1.6 Calcium Total Bilirubin AST ALT Alkaline Phosphatase NT-Pro-B Natriuret Pep 8420 H Total Protein Albumin Globulin Albumin/Globulin Ratio Urine Color Urine Clarity Urine pH Ur Specific [place] Urine Protein Urine Glucose (UA) Urine Ketones Urine Blood Urine Nitrate Urine Bilirubin Urine Urobilinogen Ur Leukocyte Esterase Urine WBC (Auto) Urine RBC (Auto) Ur Squamous Epith Cells Urine Bacteria Urine Yeast (Budding) Assessment & Plan - Assessment and Plan (Free Text) Plan: Respiratory wheezing: most of the sound is transmitted from upper airway, patient has COPD, will benefit from nebulizers and solumedrol, patient advised to stop smoking, 1 gm mag sulfate, bedside PFT -Chronic diastolic heart failure:avoid fluid overloaded states, lasix now, CXR c /w congestion, will benefit from antiplatelets, av adnielle jeanine and statin, not acanddate for ACEI 2nd CKD -CKD: chronic, avoid nephrotoxic drgus, nephrology eval -left lower leg swelling: check LE doppler r/o DVt -PVD/athrosclerotic disease: will benefit from Dual antiplatelet therapy + statin -Patient has abdominal fluid accumulation suspicious for malignancy, please obtain pathology report, IR for CT guided paracentesis/biopsy -continue dvt/pud ppx Please place patient on telemetry Patient has a long history of smoking resulting in athersclerotic vascular disease which can precipitate a CVA, [place] and PVD/leg ischemia. Patient aware of above mangement Please call ICU if patient's clinical status worsens. multiple diagnostic tests pending. Patient remains hemodynamically stable. - Date & Time Date: 04/28/17 Time: 13:00
--- NOTE | 2017-04-28 15:32 | RAD ---
HISTORY: eval right lungs COMPARISON: Comparison is made with 12/12/2012 FINDINGS: LUNGS: There is a new opacity at the left lower lobe may represent pneumonia or neoplasm PLEURA: There is suspicious for left pleural effusion CARDIOVASCULAR: Normal. OSSEOUS STRUCTURES: No significant abnormalities. VISUALIZED UPPER ABDOMEN: Normal. OTHER FINDINGS: None. IMPRESSION: New moderate-size opacity/consolidation at the left lower lung may represent pneumonia or neoplasm. Smallleft pleural effusion.
--- NOTE | 2017-04-28 17:06 | US ---
HISTORY: eval hydro COMPARISON: Comparison is made with previous CT dated 04/27/2017 previous ultrasound of the abdomen dated 10/24/2013 TECHNIQUE: Sonographic evaluation of the abdomen. FINDINGS: LIVER: Measures 16 cm. Increased echogenicity of the liver parenchyma. Heterogeneous nodular appearance of the liver parenchyma is noted. No mass. No intrahepatic bile duct dilatation. GALLBLADDER: The gallbladder is not well visualized in this study. Unremarkable. No gallstones. COMMON BILE DUCT: Measures 5.4 mm. No stones. No dilatation. PANCREAS: The visualized portion of the pancreas demonstrate no acute pathology or suspicious mass RIGHT KIDNEY: Measures 10.5 x 5 x 4.4cm. Normal echogenicity. No calculus, mass, or hydronephrosis. LEFT KIDNEY: The patient is status post left nephrectomy. SPLEEN: Normal in size and contour. No mass. AORTA: No aneurysmal dilatation. IVC: Unremarkable. OTHER FINDINGS: Small amount of ascites is again noted in the abdomen. bilateral pleural effusion is also noted. IMPRESSION: The gallbladder is not well visualized in this study likely contracted. Heterogeneous nodular appearance of the liver. Small ascites and bilateral pleural effusions. No evidence of right hydronephrosis.
[2017-04-28] MEDS ORDERED: Sodium Chloride 3% 500 ML IV ONE (18:15)
[2017-04-28 19:51] LABS: ABG ALLEN TEST P; ARTERIAL BLOOD GAS HCO3 12.9 mmol/L (21-28); ARTERIAL BLOOD GAS O2 SAT 100.1 % (95-98); ARTERIAL BLOOD GAS PCO2 18 mm/Hg (35-45); ARTERIAL BLOOD GAS PH 7.29 (7.35-7.45); ARTERIAL BLOOD GAS PO2 148 mm/Hg (80-100); ARTERIAL BLOOD GAS TCO2 9.3 mmol/L (22-28)
--- NOTE | 2017-04-28 20:35 | CP.PCM.CON ---
History of Present Illness - History of Present Illness History of Present Illness: Initial Nephrology Consultation: Assessment: critical Acute Kidney Injury (N17.9) ? etiology. possible ATN Hyponatremia likely multifactorial: thiazide diuretics, hypotonic fluids ? Increased stimulation of ADH from pelvic pathology concerning for neoplasm Anemia, s/p left nephrectomy for stones active smoker HTN, hyperlipidemia, adnexal mass ascites, hypoalbuminemia Plan No acute need for renal replacement therapy at this time. may need soon. will need close follow up Hypertension control with meds as ordered. Patient not on ACEI/ARB due to TONA Monitor Input/Output, daily weights and renal function with basic metabolic panel agree with loop diuretics but now due to TONA will be less effective due to decreasing Na level and reported changes in mentation, will start on hypertonic saline 3% @ 20 ml/hr to target Na 128 over next 24 hrs. Monitor Na level q 4 and avoid correction > 6-8 meq/24 hr Check urine analysis, spot protein/creatinine, alb/cr urine Na/osmol [employer] TR[employer]IVER, ICU, surgery, GI following Dose meds/antibiotics for reduced GFR. Avoid fleets enema/magnesium based laxatives. Avoid nephrotoxins/NSAIDs/ iodinated contrast (unless needed emergently) Glycemic control Further work up/management as per primary team Thanks for allowing me to participate in care of your patient. Will follow patient with you. Please call if any Qs. d/w daughter bedside. d/w ICU team Dr Scott Andrade Office: [phone] Chief Complaint; SOB reason for consult: TONA and hyponatremia HPI: Pt is a 66 F with hx of hypertension (years), smoker presented with complaints of abdomen pain and leg swelling, found to have ascites and left adnexal cystic mass, renal consult for TONA and hyponatremia. pt also reports hx of left nephrectomy for kidney stones she has een on HCTZ and also was receiving hypotonic fluids as D5/0.45% saline Denies OTC/herbal meds or NSAIDs No recent iodinated contrast exposure. No obvious episodes of low BP. she feels sick, c/o SOB and feeling sleepy, daughter reports it is a change from her usual status and activity level ROS: Cardiovascular: No chest pain. Pulmonary: c/o shortness of breath Gastrointestinal: c/o abdominal pain No nausea. No vomiting. Genitourinary: No pain while urinating. Denies blood in urine. reports decreased UOP. All other negative Physical Examination: General Appearance: uncomfortable, in no acute respiratory distress, co- operative . ill appearing Vitals reviewed and noted as below Head; Atraumatic, normocephalic ENT: no ulcers no thrush. Tongue is midline. Oropharynx: no rash or ulcers. EYES: Pupils are equal, round and reactive to light accommodation. Eye muscles and extraocular movement intact. Sclera is anicteric. Neck; supple no lymphadenopathy, no thyromegaly or bruit Lungs: Increased respiratory rate/effort. Breath sounds bilateral equal and has basal crackle Heart: Normal rate. s1s2 normal. No rub or gallop. Extremities: 1-2+ edema. No varicose veins Neurological: Patient is awake and oriented to person, place and time. No focal deficit. Strength bilateral appropriate and equal. Intermittent sleepiness noted. Skin: Warm and dry. Normal turgor. No rash. Palpitation: Normal elasticity for age Abdomen: Abdomen is soft. Bowel sounds +. There is no abdominal tenderness, no guarding/rigidity no organomegaly. distended Psych: normal insight and normal affect/mood MSK: no joint tenderness or swelling. Digits and nails normal, no deformity : kidney or bladder not palpable Labs/imaging reviewed. Past medical history, past surgical history, family history, social history, allergy reviewed and noted as below Family hx: no hx of CKD. Rest non-contributory UA: 2+ protein and 2+ blood CT: left adnexal cyst. Past Patient History - Infectious Disease Hx of Infectious Diseases: None - Past Social History Smoking Status: Light Smoker < 10 Cigarettes Daily - CARDIAC Hx Cardiac Disorders: Yes Hx Hypercholesterolemia: Yes Hx Hypertension: Yes - PULMONARY Hx Respiratory Disorders: No - NEUROLOGICAL Hx Neurological Disorder: No - RENAL Hx Chronic Kidney Disease: Yes Hx Kidney Stones: Yes - ENDOCRINE/METABOLIC Hx Endocrine Disorders: No - HEMATOLOGICAL/ONCOLOGICAL Hx Blood Disorders: No - INTEGUMENTARY Hx Dermatological Problems: No - MUSCULOSKELETAL/RHEUMATOLOGICAL Hx Falls: No - GASTROINTESTINAL Hx Gastrointestinal Disorders: No - GENITOURINARY/GYNECOLOGICAL Hx Genitourinary Disorders: No - PSYCHIATRIC Hx Substance Use: No - SURGICAL HISTORY Hx Appendectomy: Yes Other/Comment: nephrectomy, right ovary removed - ANESTHESIA Hx Anesthesia: Yes Hx Anesthesia Reactions: No Hx Malignant Hyperthermia: No Has any member of the family had a problem w/ anesthesia?: No Meds Allergies/Adverse Reactions: Allergies Allergy/AdvReac Type Severity Reaction Status Date / Time bia Allergy Intermediate SWELLING Verified 04/21/17 05:23 strawberry Allergy Intermediate RASH Verified 04/21/17 05:23 - Medications Medications: Current Medications Albuterol/Ipratropium (Duoneb 3 Mg/0.5 Mg (3 Ml) Ud) 3 ml INH RQ6 [facility] Last Admin: 04/28/17 19:38 Dose: 3 ml Amlodipine Besylate (Norvasc) 10 mg PO DAILY [facility] Last Admin: 04/28/17 10:33 Dose: 10 mg Belladonna/Phenobarbital () 1 tab PO TID [facility] Last Admin: 04/28/17 19:00 Dose: 1 tab Dicyclomine HCl (Bentyl) 10 mg PO BID [facility] Last Admin: 04/28/17 19:00 Dose: 10 mg Furosemide (Lasix) 40 mg IVP DAILY [facility] Last Admin: 04/28/17 15:00 Dose: 40 mg Ceftriaxone Sodium 1 gm/ (Sodium Chloride) 100 mls @ 100 mls/hr IVPB DAILY [facility] Last Admin: 04/28/17 10:45 Dose: 100 mls/hr Sodium Chloride (Hypertonic Saline 3%) 400 mls @ 20 mls/hr IV .Q20H ONE Stop: 04/29/17 14:29 Last Admin: 04/28/17 19:19 Dose: 20 mls/hr Methylprednisolone (Solu-Medrol) 40 mg IVP Q8H [facility] Metoclopramide HCl (Reglan) 5 mg IVP Q6H [facility] Last Admin: 04/28/17 20:01 Dose: Not Given Ondansetron HCl (Zofran Inj) 4 mg IVP Q6H PRN PRN Reason: Nausea/Vomiting Pantoprazole Sodium (Protonix Ec Tab) 40 mg PO DAILY [facility] Last Admin: 04/28/17 13:53 Dose: 40 mg Results - Vital Signs Recent Vital Signs: Last Vital Signs Temp 98.2 F 04/28/17 16:30 Pulse 84 04/28/17 16:30 Resp 20 04/28/17 16:30 BP 144/62 04/28/17 16:30 Pulse Ox 95 04/28/17 16:30 - Labs Result Diagrams: 04/28/17 09:09 02/17/18 14:54 Labs: Laboratory Results - last 24 hr 04/28/17 04/28/17 04/28/17 09:09 09:09 09:40 WBC 28.9 H D RBC 4.06 Hgb 11.3 Hct 35.0 MCV 86.2 MCH 27.9 MCHC 32.4 L RDW 15.0 H Plt Count 360 MPV 8.5 Neut % (Auto) 88.9 H Lymph % (Auto) 5.0 L Posey % (Auto) 5.2 Eos % (Auto) 0.1 Baso % (Auto) 0.8 Neut # (Auto) 25.7 H Lymph # (Auto) 1.4 Posey # (Auto) 1.5 H Eos # (Auto) 0.0 Baso # (Auto) 0.2 Neutrophils % (Manual) 86 H Lymphocytes % (Manual) 9 L Monocytes % (Manual) 4 Eosinophils % (Manual) 1 Platelet Estimate Normal Anisocytosis (manual) Slight Microcytosis (manual) Slight Spherocytes Slight Ovalocytes Slight Puncture Site pCO2 pO2 HCO3 ABG pH ABG Total CO2 ABG O2 Saturation ABG Base Excess Pierre Test ABG Potassium A-a O2 Difference Respiratory Index Glucose Lactate Liter Flow Vent Mode FiO2 Inspiratory BiPAP Expiratory BiPAP Crit Value Called To Crit Value Called By Crit Value Read Back Blood Gas Notified Time Sodium 123 L Potassium 4.4 Chloride 101 Carbon Dioxide 15 L Anion Gap 11 BUN 35 H Creatinine 2.3 H Est GFR ( Amer) 26 Est GFR (Non-Af Amer) 21 Random Glucose 129 H Lactic Acid Calcium 7.1 L Phosphorus Magnesium Total Bilirubin 0.3 AST 14 D ALT 23 Alkaline Phosphatase 92 NT-Pro-B Natriuret Pep Total Protein 5.0 L Albumin 2.1 L Globulin 2.8 Albumin/Globulin Ratio 0.8 L Arterial Blood Potassium Urine Color Minna Urine Clarity Hazy Urine pH 5.0 Ur Specific [place] 1.015 Urine Protein 3+ H Urine Glucose (UA) Normal Urine Ketones Negative Urine Blood 2+ H Urine Nitrate Negative Urine Bilirubin Negative Urine Urobilinogen Normal Ur Leukocyte Esterase 2+ H Urine WBC (Auto) 35 H Urine RBC (Auto) 31 H Ur Squamous Epith Cells 24 H Urine Bacteria Rare Urine Yeast (Budding) Occ H Influenza Typ A,B (EIA) 04/28/17 04/28/17 04/28/17 14:54 14:54 15:48 WBC RBC Hgb Hct MCV MCH MCHC RDW Plt Count MPV Neut % (Auto) Lymph % (Auto) Posey % (Auto) Eos % (Auto) Baso % (Auto) Neut # (Auto) Lymph # (Auto) Posey # (Auto) Eos # (Auto) Baso # (Auto) Neutrophils % (Manual) Lymphocytes % (Manual) Monocytes % (Manual) Eosinophils % (Manual) Platelet Estimate Anisocytosis (manual) Microcytosis (manual) Spherocytes Ovalocytes Puncture Site pCO2 pO2 HCO3 ABG pH ABG Total CO2 ABG O2 Saturation ABG Base Excess Pierre Test ABG Potassium A-a O2 Difference Respiratory Index Glucose Lactate Liter Flow Vent Mode FiO2 Inspiratory BiPAP Expiratory BiPAP Crit Value Called To Crit Value Called By Crit Value Read Back Blood Gas Notified Time Sodium 122 L Potassium 4.8 Chloride 99 Carbon Dioxide 14 L Anion Gap 13 BUN 38 H Creatinine 2.4 H Est GFR ( Amer) 24 Est GFR (Non-Af Amer) 20 Random Glucose 130 H Lactic Acid 1.6 Calcium 7.6 L Phosphorus 4.8 H Magnesium 1.7 Total Bilirubin 0.3 AST 19 ALT 24 Alkaline Phosphatase 96 NT-Pro-B Natriuret Pep 8420 H Total Protein 5.1 L Albumin 2.3 L Globulin 2.8 Albumin/Globulin Ratio 0.8 L Arterial Blood Potassium Urine Color Urine Clarity Urine pH Ur Specific [place] Urine Protein Urine Glucose (UA) Urine Ketones Urine Blood Urine Nitrate Urine Bilirubin Urine Urobilinogen Ur Leukocyte Esterase Urine WBC (Auto) Urine RBC (Auto) Ur Squamous Epith Cells Urine Bacteria Urine Yeast (Budding) Influenza Typ A,B (EIA) Negative for flu a/b 04/28/17 19:40 WBC RBC Hgb Hct MCV MCH MCHC RDW Plt Count MPV Neut % (Auto) Lymph % (Auto) Posey % (Auto) Eos % (Auto) Baso % (Auto) Neut # (Auto) Lymph # (Auto) Posey # (Auto) Eos # (Auto) Baso # (Auto) Neutrophils % (Manual) Lymphocytes % (Manual) Monocytes % (Manual) Eosinophils % (Manual) Platelet Estimate Anisocytosis (manual) Microcytosis (manual) Spherocytes Ovalocytes Puncture Site Lr pCO2 18 L* pO2 148 H HCO3 12.9 L ABG pH 7.29 L ABG Total CO2 9.3 L ABG O2 Saturation 100.1 H ABG Base Excess -15.5 L Pierre Test P ABG Potassium 3.0 L A-a O2 Difference 43.0 Respiratory Index 0.3 Glucose 130 H Lactate 0.9 Liter Flow 30.0 Vent Mode Bipap FiO2 30.0 Inspiratory BiPAP 12 Expiratory BiPAP 5 Crit Value Called To Dr gray Crit Value Called By Ga.rt Crit Value Read Back Y Blood Gas Notified Time 1950 Sodium 133.0 Potassium Chloride 111.0 H Carbon Dioxide Anion Gap BUN Creatinine Est GFR ( Amer) Est GFR (Non-Af Amer) Random Glucose Lactic Acid Calcium Phosphorus Magnesium Total Bilirubin AST ALT Alkaline Phosphatase NT-Pro-B Natriuret Pep Total Protein Albumin Globulin Albumin/Globulin Ratio Arterial Blood Potassium 3.0 L Urine Color Urine Clarity Urine pH Ur Specific [place] Urine Protein Urine Glucose (UA) Urine Ketones Urine Blood Urine Nitrate Urine Bilirubin Urine Urobilinogen Ur Leukocyte Esterase Urine WBC (Auto) Urine RBC (Auto) Ur Squamous Epith Cells Urine Bacteria Urine Yeast (Budding) Influenza Typ A,B (EIA)
[2017-04-28] MEDS ORDERED: metOLazone 5 MG TAB PO STA (23:51)
--- NOTE | 2017-04-29 00:01 | CP.PCM.PN ---
Subjective - Date & Time of Evaluation Date of Evaluation: 04/28/17 Time of Evaluation: 23:53 - Subjective Subjective: Patient is awake oriented x3 but tired from breathing, denies any pain. On exam 150/70, R 20/min, p 70, spo2 98 on nc. Edema in the skin all 4 ext noticed Chest clear CVS regular Abd distended, non tender Patient mention urinated small amount. Assessment Anasarca with clinically increased vol and overal salt but water > salt, Acidotic hence sob Pericardial effusion clinically not tampnade, echo ordered Ovarian complex cyst, Single kid, nery Plan DC ivf including 3% Salt tabs to control acidosis, this may add sodium, carefully monitor Trial of high dose lasix with metolozone Ramsey for monitoring output May need albumin Echo If patient doesn't respond with above will need RECREATION THERAPIST D/w Dr Andrade nephrology workday consultant. Objective - Vital Signs/Intake and Output Vital Signs (last 24 hours): Temp Pulse Resp BP Pulse Ox 98.2 F 77 20 147/92 H 98 04/28/17 22:00 04/28/17 22:48 04/28/17 22:00 04/28/17 22:00 04/28/17 22:00 - Medications Medications: Current Medications Albuterol/Ipratropium (Duoneb 3 Mg/0.5 Mg (3 Ml) Ud) 3 ml INH RQ6 [facility] Last Admin: 04/28/17 19:38 Dose: 3 ml Amlodipine Besylate (Norvasc) 10 mg PO DAILY [facility] Last Admin: 04/28/17 10:33 Dose: 10 mg Belladonna/Phenobarbital () 1 tab PO TID [facility] Last Admin: 04/28/17 19:00 Dose: 1 tab Dicyclomine HCl (Bentyl) 10 mg PO BID [facility] Last Admin: 04/28/17 19:00 Dose: 10 mg Furosemide (Lasix) 40 mg IVP DAILY [facility] Last Admin: 04/28/17 15:00 Dose: 40 mg Furosemide (Lasix) 40 mg IVP STAT [facility] Stop: 04/28/17 23:52 Ceftriaxone Sodium 1 gm/ (Sodium Chloride) 100 mls @ 100 mls/hr IVPB DAILY [facility] Last Admin: 04/28/17 10:45 Dose: 100 mls/hr Methylprednisolone (Solu-Medrol) 40 mg IVP Q8H [facility] Metoclopramide HCl (Reglan) 5 mg IVP Q6H [facility] Last Admin: 04/28/17 20:01 Dose: Not Given Metolazone (Zaroxolyn) 5 mg PO STAT [facility] Stop: 04/28/17 23:52 Ondansetron HCl (Zofran Inj) 4 mg IVP Q6H PRN PRN Reason: Nausea/Vomiting Pantoprazole Sodium (Protonix Ec Tab) 40 mg PO DAILY [facility] Last Admin: 04/28/17 13:53 Dose: 40 mg Sodium Bicarbonate (Sodium Bicarbonate Tab) 1,300 mg PO Q2 [facility] - Labs Labs: 04/28/17 09:09 04/28/17 23:35 PT 11.4 SECONDS (9.7-12.2) 04/26/17 08:21 INR 1.0 04/26/17 08:21 APTT 24 SECONDS (21-34) 04/26/17 08:21
[2017-04-29] MEDS: MethylPREDNISolone 40 mg Vial IVP SCH ×4 (00:31→23:57)
[2017-04-29] MEDS: Albuterol-Ipratrop 3 mg / 0.5 (3 ml) UD INH SCH ×4 (02:04→19:11)
--- NOTE | 2017-04-29 04:37 | CON ---
DATE: CARDIOLOGY CONSULTATION REASON FOR CONSULTATION: Abnormal EKG and pericardial effusion. HISTORY OF PRESENT ILLNESS: The patient is a 66-year-old female who is a smoker, has a history of hypertension and hyperlipidemia. The patient underwent myocardial perfusion study in 05/2015 and showed normal perfusion. The patient presented because of left-sided abdominal pain and vomiting. Abdominal and pelvic scan revealed complex cystic mass noted in the left adnexa. 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 A small bilateral pleural effusion with anasarca, intraabdominal ascites, small pericardial effusion; given the appearance of the left cystic adnexal mass, malignant ascites is among the diagnostic consideration. Mild dilatation of the proximal small bowel. Atelectasis/consolidation of both lung bases. The patient denies any retrosternal chest pain and at this time, she is experiencing shortness of breath and weakness. SOCIAL HISTORY: The patient is a smoker. MEDICATIONS: IV Rocephin at 1 gm daily, albuterol inhaler q.6 hours, 3% normal saline at 20 mL an hour, Lasix 40 mg intravenously once a day, Norvasc at 10 mg once a day, Protonix 40 mg twice a day, Reglan 5 mg intravenously q. 6 hours, Solu-Medrol 40 mg intravenously q.8 hours, Zofran 4 mg intravenously q.6 hours p.r.n. REVIEW OF SYSTEMS: The patient has low-grade fever, shortness of breath and productive cough. PHYSICAL EXAMINATION: GENERAL: The patient is an elderly female who appears mildly tachypneic. VITAL SIGNS: Blood pressure 132/61, heart rate 92, temperature 99.2, and respirations 18. HEENT: Normocephalic. CHEST: Absent breath sounds over the bases. HEART: S1 and S2 regular. ABDOMEN: Mild paraumbilical tenderness. EXTREMITIES: No edema. LABORATORY DATA: Hemoglobin and hematocrit are 11.3 and 35.2, white count 28.9 and platelet count 360,000. PT, PTT, INR on admission are within normal limits. SMA-7: Sodium 122, potassium 4.8, chloride 99, CO2 of 30, glucose of 150, BUN 38, creatinine 2.4. ProBNP is 8420. CA-125 antigen elevated at 89.2. EKG done on admission revealed sinus rhythm, possible ST-segment enlargement, low voltage QRS, cannot rule out anteroseptal infarct, age indeterminate. Abdominal ultrasound, small amount of ascites, bilateral pleural effusion, gallbladder is not fully visualized in this study and likely contracted. Yesterday's chest x-ray revealed mild cardiomegaly, mild CHF and left pleural effusion. Two sets of blood cultures are negative after 3 days. ASSESSMENT: 1. Left adnexal mass with ascites, left pleural effusion and pericardial effusion, rule out Fairlee' syndrome. 2. Rule out underlying pneumonia. 3. Hyponatremia. 4. Acute renal failure. RECOMMENDATIONS: Continue current IV Rocephin. Discontinue Lasix. Obtain repeat 12-lead EKG, as well as an echocardiogram. I will follow up blood cultures. I will discuss with Dr. Lucas as he prefers to continue follow up with the patient. John Mitchell MD
--- NOTE | 2017-04-29 06:11 | CP.PCM.PN ---
Subjective - Date & Time of Evaluation Date of Evaluation: 04/29/17 Time of Evaluation: 07:20 - Subjective Subjective: General surgery progress note for Dr. Nery Pulliam,PGY-1 Pt S & E at bedside. Pt resting comfortably in bed. Transferred from floor to ICU overnight for acute urinary retention. Pt reports ab pain/bloating improving. Ramsey catheter in place with small amount of light yellow UOP. Denies BM or flatus. Objective - Vital Signs/Intake and Output Vital Signs (last 24 hours): Temp Pulse Resp BP Pulse Ox 97.7 F 123 H 19 147/55 L 94 L 04/29/17 04:00 04/29/17 06:00 04/29/17 06:00 04/29/17 05:18 04/29/17 06:00 Intake and Output: 04/28/17 04/29/17 18:59 06:59 Intake Total 250 Output Total 400 Balance -150 - Medications Medications: Current Medications Albuterol/Ipratropium (Duoneb 3 Mg/0.5 Mg (3 Ml) Ud) 3 ml INH RQ6 [facility] Last Admin: 04/29/17 02:04 Dose: 3 ml Amlodipine Besylate (Norvasc) 10 mg PO DAILY [facility] Last Admin: 04/28/17 10:33 Dose: 10 mg Belladonna/Phenobarbital () 1 tab PO TID [facility] Last Admin: 04/28/17 19:00 Dose: 1 tab Dicyclomine HCl (Bentyl) 10 mg PO BID [facility] Last Admin: 04/28/17 19:00 Dose: 10 mg Furosemide (Lasix) 40 mg IVP DAILY [facility] Last Admin: 04/28/17 15:00 Dose: 40 mg Ceftriaxone Sodium 1 gm/ (Sodium Chloride) 100 mls @ 100 mls/hr IVPB DAILY [facility] Last Admin: 04/28/17 10:45 Dose: 100 mls/hr Methylprednisolone (Solu-Medrol) 40 mg IVP Q8H [facility] Last Admin: 04/29/17 00:31 Dose: 40 mg Metoclopramide HCl (Reglan) 5 mg IVP Q6H [facility] Last Admin: 04/29/17 01:47 Dose: 5 mg Ondansetron HCl (Zofran Inj) 4 mg IVP Q6H PRN PRN Reason: Nausea/Vomiting Pantoprazole Sodium (Protonix Ec Tab) 40 mg PO DAILY [facility] Last Admin: 04/28/17 13:53 Dose: 40 mg Sodium Bicarbonate (Sodium Bicarbonate Tab) 1,300 mg PO Q2 [facility] Last Admin: 04/29/17 05:10 Dose: 1,300 mg - Labs Labs: 04/28/17 09:09 04/28/17 23:35 PT 11.4 SECONDS (9.7-12.2) 04/26/17 08:21 INR 1.0 04/26/17 08:21 APTT 24 SECONDS (21-34) 04/26/17 08:21 - Constitutional Appears: Non-toxic, No Acute Distress - Head Exam Head Exam: ATRAUMATIC, NORMAL INSPECTION, NORMOCEPHALIC - Eye Exam Eye Exam: EOMI, Normal appearance - ENT Exam ENT Exam: Mucous Membranes Moist, Normal Exam - Neck Exam Neck Exam: Full ROM, Normal Inspection - Respiratory Exam Respiratory Exam: Rhonchi (mild), NORMAL BREATHING PATTERN. absent: Accessory Muscle Use, Respiratory Distress - Cardiovascular Exam Cardiovascular Exam: REGULAR RHYTHM - GI/Abdominal Exam GI & Abdominal Exam: Distended (mildly), Guarding (lower quadrants), Soft, Tenderness. absent: Firm, Rebound - Extremities Exam Extremities Exam: Full ROM, Normal Inspection - Neurological Exam Neurological Exam: Alert, Awake, CN II-XII Intact, Oriented x3 - Psychiatric Exam Psychiatric exam: Normal Affect, Normal Mood - Skin Skin Exam: Dry, Intact, Normal Color, Warm Assessment and Plan - Assessment and Plan (Free Text) Assessment: 66F w/abdominal pain/distention Plan: FU EGD bx Advanced to [facility] as per GI Refused colonoscopy H/H WNL- stable Cont IV Abx- Leukocytosis increasing CT w/complex L adenax cystic mass Pain control Cont PPI Further mgmt as per primary & ICU team Recommend gynecologist onc consult for pelvic mass Will follow [facility] attending Shasha, PGY-1
[2017-04-29 06:34] LABS: BASO # 0.1 K/uL (0.0-0.2); BASO % 0.3 % (0.0-2.0); HEMOGLOBIN 11.9 g/dL (11.0-16.0); LYMPH # 0.8 K/uL (1.0-4.3); LYMPH % 2.4 % (20.0-40.0); MEAN CELL VOLUME 86.1 fL (81.0-99.0); MEAN CORPUSCULAR HGB CONC 33.7 g/dL (33.0-37.0); MEAN PLATELET VOLUME 8.7 fL (7.2-11.7); MONO # 0.6 K/uL (0.0-0.8); MONO % 1.8 % (0.0-10.0); NEUT # 31.2 K/uL (1.8-7.0); NEUT % 95.5 % (50.0-75.0); PLATELET COUNT 386 K/uL (130-400); RBC 4.09 Mil/uL (3.80-5.20); RED CELL DISTRIBUTION WIDTH 14.9 % (11.5-14.5); WHITE BLOOD COUNT 32.7 K/uL (4.8-10.8)
[2017-04-29 06:37] LABS: OSMOLALITY,URINE 241 mosm/kg (300-1000)
[2017-04-29 06:46] LABS: ALB/GLOB RATIO 0.8 (1.0-2.1); ALBUMIN 2.5 g/dL (3.5-5.0); CALCIUM 8.1 mg/dl (8.6-10.4)
--- NOTE | 2017-04-29 07:57 | CP.PCM.PN ---
Subjective - Date & Time of Evaluation Date of Evaluation: 04/29/17 Time of Evaluation: 07:30 - Subjective Subjective: General Surgery Dr. Preciado Pt S&E @bedside. Pt transferred to ICU overnight for acute worsening SOB and urinary retention. Ramsey was placed. This morning, pt has no complaints. denies F/C, SOB, CP, N/V, abd pain, D/C. tolerating diet. Objective - Vital Signs/Intake and Output Vital Signs (last 24 hours): Temp Pulse Resp BP Pulse Ox 97.7 F 72 15 174/52 H 100 04/29/17 04:00 04/29/17 07:00 04/29/17 07:00 04/29/17 06:18 04/29/17 07:00 Intake and Output: 04/29/17 04/29/17 06:59 18:59 Intake Total 250 Output Total 400 50 Balance -150 -50 - Medications Medications: Current Medications Albuterol/Ipratropium (Duoneb 3 Mg/0.5 Mg (3 Ml) Ud) 3 ml INH RQ6 [facility] Last Admin: 04/29/17 02:04 Dose: 3 ml Amlodipine Besylate (Norvasc) 10 mg PO DAILY [facility] Last Admin: 04/28/17 10:33 Dose: 10 mg Belladonna/Phenobarbital () 1 tab PO TID [facility] Last Admin: 04/28/17 19:00 Dose: 1 tab Dicyclomine HCl (Bentyl) 10 mg PO BID [facility] Last Admin: 04/28/17 19:00 Dose: 10 mg Furosemide (Lasix) 40 mg IVP DAILY [facility] Last Admin: 04/28/17 15:00 Dose: 40 mg Ceftriaxone Sodium 1 gm/ (Sodium Chloride) 100 mls @ 100 mls/hr IVPB DAILY [facility] Last Admin: 04/28/17 10:45 Dose: 100 mls/hr Methylprednisolone (Solu-Medrol) 40 mg IVP Q8H [facility] Last Admin: 04/29/17 06:19 Dose: 40 mg Metoclopramide HCl (Reglan) 5 mg IVP Q6H [facility] Last Admin: 04/29/17 01:47 Dose: 5 mg Ondansetron HCl (Zofran Inj) 4 mg IVP Q6H PRN PRN Reason: Nausea/Vomiting Pantoprazole Sodium (Protonix Ec Tab) 40 mg PO DAILY [facility] Last Admin: 04/28/17 13:53 Dose: 40 mg Sodium Bicarbonate (Sodium Bicarbonate Tab) 1,300 mg PO Q12 [facility] - Labs Labs: 04/29/17 06:21 04/29/17 06:21 PT 11.4 SECONDS (9.7-12.2) 04/26/17 08:21 INR 1.0 04/26/17 08:21 APTT 24 SECONDS (21-34) 04/26/17 08:21 - Constitutional Appears: Non-toxic, No Acute Distress - Head Exam Head Exam: NORMAL INSPECTION - Eye Exam Eye Exam: Normal appearance - ENT Exam ENT Exam: Mucous Membranes Moist - Respiratory Exam Respiratory Exam: Rhonchi, NORMAL BREATHING PATTERN. absent: Accessory Muscle Use, Respiratory Distress - GI/Abdominal Exam GI & Abdominal Exam: Soft. absent: Distended, Guarding, Tenderness, Rebound - Neurological Exam Neurological Exam: Alert, Awake - Psychiatric Exam Psychiatric exam: Normal Affect, Normal Mood - Skin Skin Exam: Dry, Intact, Normal Color, Warm Assessment and Plan - Assessment and Plan (Free Text) Assessment: 66 y/o F w/ resolved abd pain - f/u EGD bx - Advanced diet per GI - cont pain management - worsening leukocytosis - recommend ID consult - cont medical management per PMD and Critical Care - GI/DVT PPx Pt discussed w/ Dr. Ozzy Rahman DO PGY2
[2017-04-29 08:07] LABS: ANISOCYTOSIS SLIGHT; BANDS 1 % (0-2); LYMPHOCYTE 4 % (20-40); MONOCYTE 2 % (0-10); NEUTROPHIL 93 % (50-75); PLATELET ESTIMATE NORMAL (NORMAL); TOTAL CELLS COUNTED 100
[2017-04-29 08:08] LABS: OVALOCYTES SLIGHT; POIKILOCYTOSIS SLIGHT
[2017-04-29 08:09] LABS: BURR CELLS SLIGHT; LARGE PLATELETS PRESENT; SCHISTOCYTES SLIGHT; SPHEROCYTES SLIGHT; TEARDROP CELLS SLIGHT
[2017-04-29 09:19] LABS: CREATININE, RANDOM URINE 88.5 mg/dL
[2017-04-29] MEDS: Pantoprazole 40 mg EC Tab PO SCH (09:38)
[2017-04-29] MEDS: Belladonna-Phenobarbital PO SCH ×3 (09:40→17:43)
--- NOTE | 2017-04-29 10:58 | CP.PCM.PN ---
Subjective - Date & Time of Evaluation Date of Evaluation: 04/29/17 Time of Evaluation: 10:54 - Subjective Subjective: Patient seen and examined at bedside. Patient awake, alert x3, able to speak in 8-10 word sentences Objective - Vital Signs/Intake and Output Vital Signs (last 24 hours): Temp Pulse Resp BP Pulse Ox 97.7 F 74 16 172/57 H 99 04/29/17 08:00 04/29/17 08:00 04/29/17 08:00 04/29/17 09:50 04/29/17 08:00 Intake and Output: 04/29/17 04/29/17 06:59 18:59 Intake Total 250 Output Total 400 50 Balance -150 -50 - Medications Medications: Current Medications Albuterol/Ipratropium (Duoneb 3 Mg/0.5 Mg (3 Ml) Ud) 3 ml INH RQ6 [facility] Last Admin: 04/29/17 08:01 Dose: 3 ml Amlodipine Besylate (Norvasc) 10 mg PO DAILY [facility] Last Admin: 04/29/17 09:39 Dose: 10 mg Belladonna/Phenobarbital () 1 tab PO TID [facility] Last Admin: 04/29/17 09:40 Dose: 1 tab Dicyclomine HCl (Bentyl) 10 mg PO BID [facility] Last Admin: 04/29/17 09:39 Dose: 10 mg Furosemide (Lasix) 80 mg IVP Q12 [facility] Ceftriaxone Sodium 1 gm/ (Sodium Chloride) 100 mls @ 100 mls/hr IVPB DAILY [facility] Last Admin: 04/29/17 09:42 Dose: 100 mls/hr Methylprednisolone (Solu-Medrol) 40 mg IVP Q8H [facility] Last Admin: 04/29/17 06:19 Dose: 40 mg Metoclopramide HCl (Reglan) 5 mg IVP Q6H [facility] Last Admin: 04/29/17 08:37 Dose: 5 mg Ondansetron HCl (Zofran Inj) 4 mg IVP Q6H PRN PRN Reason: Nausea/Vomiting Pantoprazole Sodium (Protonix Ec Tab) 40 mg PO DAILY [facility] Last Admin: 04/29/17 09:38 Dose: 40 mg Sodium Bicarbonate (Sodium Bicarbonate Tab) 1,300 mg PO QID [facility] - Labs Labs: 04/29/17 06:21 04/29/17 06:21 PT 11.4 SECONDS (9.7-12.2) 04/26/17 08:21 INR 1.0 04/26/17 08:21 APTT 24 SECONDS (21-34) 04/26/17 08:21 - Constitutional Appears: Well, Non-toxic - Head Exam Head Exam: ATRAUMATIC - ENT Exam ENT Exam: Mucous Membranes Moist - Respiratory Exam Respiratory Exam: Rales, NORMAL BREATHING PATTERN - Cardiovascular Exam Cardiovascular Exam: REGULAR RHYTHM, +S1, +S2, +S4 - GI/Abdominal Exam GI & Abdominal Exam: Normal Bowel Sounds - Extremities Exam Extremities Exam: Pedal Edema - Neurological Exam Neurological Exam: Alert, Awake, CN II-XII Intact, Oriented x3 Assessment and Plan - Assessment and Plan (Free Text) Assessment: -COPD/Respiratory wheezing: resolved, continue bronchodialtors, titrate down solumedrol -Chronic diastolic heart failure:free water fluid restrictions, lasix as per renal, will benefit from antiplatelets, av danielle jeanine and statin, not acanddate for ACEI 2nd CKD -CKD: chronic, avoid nephrotoxic drgus, nephrology eval, supplement bicarb tabs to keep bicarb near 18 -left lower leg swelling: check LE doppler r/o DVt, suspect fluid overloaded -leukocytosis: liekly 2nd steroids, no signs of infection -PVD/athrosclerotic disease: will benefit from Dual antiplatelet therapy + statin -Patient has abdominal fluid accumulation suspicious for malignancy, please obtain pathology report, IR for CT guided paracentesis/biopsy -continue dvt/pud ppx -Patient is hemodynamically stable, breathign comfortably Patient aware of above mangement Please call ICU if patient's clinical status worsens. d/w Dr. Andrade
--- NOTE | 2017-04-29 11:19 | CP.PCM.PN ---
Subjective - Date & Time of Evaluation Date of Evaluation: 04/29/17 Time of Evaluation: 11:16 - Subjective Subjective: Follow up Nephrology Consultation: Assessment: critical Acute Kidney Injury (N17.9) ? etiology. possible ATN Hyponatremia likely multifactorial: thiazide diuretics, hypotonic fluids ? Increased stimulation of ADH from pelvic pathology concerning for neoplasm Anemia, s/p left nephrectomy for stones active smoker HTN, hyperlipidemia, adnexal mass ascites, hypoalbuminemia Nephrotic syndrome with 3.5 gram proteinuria. differential include (FSGS due to solitary kidney, Membrnaous nephropathy possibly due to undiagnosed malignancy) Cecal thickening on CT scan metabolic acidosis with respi compensation and superimposed respi alkalosis Plan No acute need for renal replacement therapy at this time. may need soon. will need close follow up Hypertension control with meds as ordered. Patient not on ACEI/ARB due to TONA. will add hydralazine Monitor Input/Output, daily weights and renal function with basic metabolic panel lasix 80 mg IV BID added sodium bicarb 1300 mg qid avoid correction in Na > 6-8 meq/24 hr. no need for hypertonic saline at present [employer], ICU, surgery, GI following pt needs work up for malignancy considering cecal thickening and adnexal mass. she is agreeable for colonoscopy. consider heme/onc eval as well. will check c3/c4/carey/anca/dna ab as proteinuria and microscopic hematuria on UA. she is not a candidate for kidney biopsy at present due to solitary kidney and pending oncologic work up Dose meds/antibiotics for reduced GFR. Avoid fleets enema/magnesium based laxatives. Avoid nephrotoxins/NSAIDs/ iodinated contrast (unless needed emergently) Glycemic control Further work up/management as per primary team Thanks for allowing me to participate in care of your patient. Will follow patient with you. Please call if any Qs. d/w daughter bedside. d/w team Dr Scott Andrade Office: [phone] Chief Complaint; feels better reason for consult: TONA and hyponatremia HPI: Pt is a 66 F with hx of hypertension (years), smoker presented with complaints of abdomen pain and leg swelling, found to have ascites and left adnexal cystic mass, renal consult for TONA and hyponatremia. pt also reports hx of left nephrectomy for kidney stones she has een on HCTZ and also was receiving hypotonic fluids as D5/0.45% saline Denies OTC/herbal meds or NSAIDs No recent iodinated contrast exposure. No obvious episodes of low BP. ROS: Cardiovascular: No chest pain. Pulmonary: improved shortness of breath Gastrointestinal: improved abdominal pain No nausea. No vomiting. Genitourinary: No pain while urinating. Denies blood in urine. . All other negative Physical Examination: General Appearance: comfortable, in no acute respiratory distress, co-operative . better appearing Vitals reviewed and noted as below Head; Atraumatic, normocephalic ENT: no ulcers no thrush. Tongue is midline. Oropharynx: no rash or ulcers. EYES: Pupils are equal, round and reactive to light accommodation. Eye muscles and extraocular movement intact. Sclera is anicteric. Neck; supple no lymphadenopathy, no thyromegaly or bruit Lungs: Improved respiratory rate/effort. Breath sounds bilateral equal and has basal crackle Heart: Normal rate. s1s2 normal. No rub or gallop. Extremities: 1-2+ edema. No varicose veins Neurological: Patient is awake and oriented to person, place and time. No focal deficit. Strength bilateral appropriate and equal. Intermittent sleepiness noted. Skin: Warm and dry. Normal turgor. No rash. Palpitation: Normal elasticity for age Abdomen: Abdomen is soft. Bowel sounds +. There is no abdominal tenderness, no guarding/rigidity no organomegaly. distended Psych: normal insight and normal affect/mood MSK: no joint tenderness or swelling. Digits and nails normal, no deformity : kidney or bladder not palpable Labs/imaging reviewed. Past medical history, past surgical history, family history, social history, allergy reviewed and noted as below Family hx: no hx of CKD. Rest non-contributory UA: 2+ protein and 2+ blood CT: left adnexal cyst. Objective - Vital Signs/Intake and Output Vital Signs (last 24 hours): Temp Pulse Resp BP Pulse Ox 97.7 F 74 16 172/57 H 99 04/29/17 08:00 04/29/17 08:00 04/29/17 08:00 04/29/17 09:50 04/29/17 08:00 Intake and Output: 04/29/17 04/29/17 06:59 18:59 Intake Total 250 Output Total 400 50 Balance -150 -50 - Medications Medications: Current Medications Albuterol/Ipratropium (Duoneb 3 Mg/0.5 Mg (3 Ml) Ud) 3 ml INH RQ6 [facility] Last Admin: 04/29/17 08:01 Dose: 3 ml Amlodipine Besylate (Norvasc) 10 mg PO DAILY [facility] Last Admin: 04/29/17 09:39 Dose: 10 mg Belladonna/Phenobarbital () 1 tab PO TID [facility] Last Admin: 04/29/17 09:40 Dose: 1 tab Dicyclomine HCl (Bentyl) 10 mg PO BID [facility] Last Admin: 04/29/17 09:39 Dose: 10 mg Furosemide (Lasix) 80 mg IVP Q12 [facility] Ceftriaxone Sodium 1 gm/ (Sodium Chloride) 100 mls @ 100 mls/hr IVPB DAILY [facility] Last Admin: 04/29/17 09:42 Dose: 100 mls/hr Methylprednisolone (Solu-Medrol) 40 mg IVP Q8H [facility] Last Admin: 04/29/17 06:19 Dose: 40 mg Metoclopramide HCl (Reglan) 5 mg IVP Q6H [facility] Last Admin: 04/29/17 08:37 Dose: 5 mg Ondansetron HCl (Zofran Inj) 4 mg IVP Q6H PRN PRN Reason: Nausea/Vomiting Pantoprazole Sodium (Protonix Ec Tab) 40 mg PO DAILY [facility] Last Admin: 04/29/17 09:38 Dose: 40 mg Sodium Bicarbonate (Sodium Bicarbonate Tab) 1,300 mg PO QID [facility] Last Admin: 04/29/17 11:00 Dose: Not Given - Labs Labs: 04/29/17 06:21 04/29/17 06:21 PT 11.4 SECONDS (9.7-12.2) 04/26/17 08:21 INR 1.0 04/26/17 08:21 APTT 24 SECONDS (21-34) 04/26/17 08:21
--- NOTE | 2017-04-29 11:32 | CP.PCM.PN ---
Subjective - Date & Time of Evaluation Date of Evaluation: 04/29/17 Time of Evaluation: 11:29 - Subjective Subjective: pt seen in icu feels beter today less cough less sob less abd pain has hi wbc Objective - Vital Signs/Intake and Output Vital Signs (last 24 hours): Temp Pulse Resp BP Pulse Ox 97.7 F 74 16 172/57 H 99 04/29/17 08:00 04/29/17 08:00 04/29/17 08:00 04/29/17 09:50 04/29/17 08:00 Intake and Output: 04/29/17 04/29/17 06:59 18:59 Intake Total 250 Output Total 400 50 Balance -150 -50 - Medications Medications: Current Medications Albuterol/Ipratropium (Duoneb 3 Mg/0.5 Mg (3 Ml) Ud) 3 ml INH RQ6 [facility] Last Admin: 04/29/17 08:01 Dose: 3 ml Amlodipine Besylate (Norvasc) 10 mg PO DAILY [facility] Last Admin: 04/29/17 09:39 Dose: 10 mg Belladonna/Phenobarbital () 1 tab PO TID [facility] Last Admin: 04/29/17 09:40 Dose: 1 tab Dicyclomine HCl (Bentyl) 10 mg PO BID [facility] Last Admin: 04/29/17 09:39 Dose: 10 mg Furosemide (Lasix) 80 mg IVP Q12 [facility] Furosemide (Lasix) 40 mg IVP ONCE ONE Stop: 04/29/17 11:31 Hydralazine HCl (Apresoline) 50 mg PO BID [facility] Hydralazine HCl (Apresoline) 25 mg PO Q4 PRN PRN Reason: Other Ceftriaxone Sodium 1 gm/ (Sodium Chloride) 100 mls @ 100 mls/hr IVPB DAILY [facility] Last Admin: 04/29/17 09:42 Dose: 100 mls/hr Methylprednisolone (Solu-Medrol) 40 mg IVP Q8H [facility] Last Admin: 04/29/17 06:19 Dose: 40 mg Metoclopramide HCl (Reglan) 5 mg IVP Q6H [facility] Last Admin: 04/29/17 08:37 Dose: 5 mg Ondansetron HCl (Zofran Inj) 4 mg IVP Q6H PRN PRN Reason: Nausea/Vomiting Pantoprazole Sodium (Protonix Ec Tab) 40 mg PO DAILY [facility] Last Admin: 04/29/17 09:38 Dose: 40 mg Sodium Bicarbonate (Sodium Bicarbonate Tab) 1,300 mg PO QID [facility] Last Admin: 04/29/17 11:00 Dose: Not Given - Labs Labs: 04/29/17 06:21 04/29/17 06:21 PT 11.4 SECONDS (9.7-12.2) 04/26/17 08:21 INR 1.0 04/26/17 08:21 APTT 24 SECONDS (21-34) 04/26/17 08:21 - Constitutional Appears: Non-toxic, In Acute Distress - Head Exam Head Exam: NORMAL INSPECTION - Eye Exam Eye Exam: Normal appearance Pupil Exam: NORMAL ACCOMODATION - ENT Exam ENT Exam: Mucous Membranes Moist - Respiratory Exam Respiratory Exam: Decreased Breath Sounds - Cardiovascular Exam Cardiovascular Exam: REGULAR RHYTHM - GI/Abdominal Exam GI & Abdominal Exam: Normal Bowel Sounds Additional comments: ascitis - Back Exam Back Exam: NORMAL INSPECTION - Neurological Exam Neurological Exam: Alert, Oriented x3 - Psychiatric Exam Psychiatric exam: Normal Affect - Skin Skin Exam: Normal Color Assessment and Plan - Assessment and Plan (Free Text) Assessment: copd chf anasarca possible ovarian cancer hyponatreamia Plan: cont as per icu orders may increase diet
--- NOTE | 2017-04-29 13:11 | CP.PCM.PN ---
Subjective - Date & Time of Evaluation Date of Evaluation: 04/29/17 Time of Evaluation: 13:06 - Subjective Subjective: abdomen much more distended and tender, especiaaly llqwbc elevated to critical levels. i suspect intraabdominal infectious process going on, therefore I suggested to patient and family a diagnostic laparoscopy possibly a laparotomy if indicated. Patient and family are very agreeable to the idea. will hopefully do in am, unless there is a medical contraindicatio Objective - Vital Signs/Intake and Output Vital Signs (last 24 hours): Temp Pulse Resp BP Pulse Ox 97.7 F 70 17 169/51 H 98 04/29/17 08:00 04/29/17 11:18 04/29/17 11:18 04/29/17 11:47 04/29/17 11:18 Intake and Output: 04/29/17 04/29/17 06:59 18:59 Intake Total 250 120 Output Total 400 300 Balance -150 -180 - Medications Medications: Current Medications Albuterol/Ipratropium (Duoneb 3 Mg/0.5 Mg (3 Ml) Ud) 3 ml INH RQ6 [facility] Last Admin: 04/29/17 08:01 Dose: 3 ml Amlodipine Besylate (Norvasc) 10 mg PO DAILY [facility] Last Admin: 04/29/17 09:39 Dose: 10 mg Belladonna/Phenobarbital () 1 tab PO TID [facility] Last Admin: 04/29/17 09:40 Dose: 1 tab Dicyclomine HCl (Bentyl) 10 mg PO BID [facility] Last Admin: 04/29/17 09:39 Dose: 10 mg Furosemide (Lasix) 80 mg IVP Q12 [facility] Hydralazine HCl (Apresoline) 50 mg PO BID [facility] Last Admin: 04/29/17 11:47 Dose: 50 mg Hydralazine HCl (Apresoline) 25 mg PO Q4 PRN PRN Reason: Other Ceftriaxone Sodium 1 gm/ (Sodium Chloride) 100 mls @ 100 mls/hr IVPB DAILY [facility] Last Admin: 04/29/17 09:42 Dose: 100 mls/hr Methylprednisolone (Solu-Medrol) 40 mg IVP Q8H [facility] Last Admin: 04/29/17 06:19 Dose: 40 mg Metoclopramide HCl (Reglan) 5 mg IVP Q6H [facility] Last Admin: 04/29/17 08:37 Dose: 5 mg Ondansetron HCl (Zofran Inj) 4 mg IVP Q6H PRN PRN Reason: Nausea/Vomiting Pantoprazole Sodium (Protonix Ec Tab) 40 mg PO DAILY [facility] Last Admin: 04/29/17 09:38 Dose: 40 mg Sodium Bicarbonate (Sodium Bicarbonate Tab) 1,300 mg PO QID [facility] Last Admin: 04/29/17 11:00 Dose: Not Given - Labs Labs: 04/29/17 06:21 04/29/17 06:21 PT 11.4 SECONDS (9.7-12.2) 04/26/17 08:21 INR 1.0 04/26/17 08:21 APTT 24 SECONDS (21-34) 04/26/17 08:21
--- NOTE | 2017-04-29 15:51 | PN ---
DATE: LOCATION: ICU 7. SUBJECTIVE: This is a 66-year-old female who was transferred last night to the Intensive Care Unit due to shortness of breath and reported urinary retention, which improved overnight. The patient was on BiPAP at some point. The patient tolerated oral intake and denied any significant complaint this morning. No reported chest pain, palpitation, nausea or vomiting, active bleeding, or significant shortness of breath. The entire chart is reviewed including but not limited to the most recent lab and radiology study results, current and the previous medication list, current and the previous medical events and the most recent ultrasound as well as chest x-ray done yesterday, report is seen. Case discussed with the staff at length and today's lab showed white blood cells of 32.7, but normal hemoglobin and hematocrit, with reported abnormal ABGs. Sodium is still low at 124, low CO2 content 12 indicative of metabolic acidosis, BUN elevated to 44, creatinine 2.3, blood glucose level 156, low calcium of 8.1, and low albumin 2.5, low total protein 5.8, with abnormal urinalysis. PHYSICAL EXAMINATION: GENERAL: A 66-year-old female. VITAL SIGNS: Afebrile, with pulse of 74, respiratory rate 20 to 22, blood pressure of 174/64. HEENT: Showed mildly pale, dry oral mucous membrane. Nonicteric sclerae. LUNGS: Few scattered crepitation, decreased air entry at bases. HEART: Positive S1 and S2. ABDOMEN: Soft, with slight generalized tenderness. No mass or organomegaly. No rebound tenderness or guarding. NEUROLOGIC: No reported new neurological deficits, sensory or motor. Peripheral pulses positive bilaterally, but decreased. It has to be mentioned that the pathology report of the gastric mucosa is still pending. IMPRESSION: 1. Re-exacerbation of peptic ulcer disease. 2. Diverticulosis with early stage of diverticulitis. 3. Pneumonia, small pleural effusion with leukocytosis and respiratory insufficiency before. 4. Known history of hypertension, insomnia, renal stones as well as hyperlipidemia. 5. Known history of colon polyp, chronic lower back pain syndrome, by history. 6. Metabolic acidosis, most likely secondary to infectious process. 7. Electrolyte imbalance with hyponatremia and hypocalcemia. 8. Malnutrition with hypoalbuminemia. SUGGESTIONS: 1. Continue current management. 2. Advance diet as tolerated. 3. No endoscopic evaluation of the lower GI tract for now, until the patient is much more stable clinically. Shantel Lakhani MD [facility] # [id number]
--- NOTE | 2017-04-29 16:43 | CT ---
PROCEDURE: CT Chest without contrast HISTORY: eval lymphadenopathy COMPARISON: None. TECHNIQUE: Contiguous axial images were obtained through the chest without intravenous contrast enhancement. Sagittal and coronal reconstructions were performed. Radiation dose (DLP): 362.33 mGy-cm. This CT exam was performed using one or more of the following dose reduction techniques: Automated exposure control, adjustment of the mA and/or kV according to patient size, and/or use of iterative reconstruction technique. FINDINGS: LUNGS: Partial atelectasis of the lower lobes/lung bases due to pleural effusion. Mild emphysematous changes at the upper lobes are noted. Foci of airspace consolidation noted in the lingula may represent atelectasis or pneumonia, less likely to be neoplasm. MEDIASTINUM: Unremarkable thoracic aorta. No aneurysm. The heart is mildly enlarged. Main pulmonary artery unremarkable. No vascular congestion. No evidence of significant lymphadenopathy in the chest. PLEURA: Small 2 moderate bilateral pleural effusions. BONES: No fracture. No destructive lesion. UPPER ABDOMEN: No evidence of acute pathology in the visualized portion of the upper abdomen. The stomach is distended. OTHER FINDINGS: Soft tissue edema and subcutaneous stranding noted in the chest wall. IMPRESSION: No evidence of significant lymphadenopathy in the chest. Small to moderate bilateral pleural fusion associated with bibasilar atelectasis. Focal airspace consolidation seen at the lingula may represent atelectasis or less likely pneumonia or neoplasm. Mild cardiomegaly. .
[2017-04-30] MEDS: Albuterol-Ipratrop 3 mg / 0.5 (3 ml) UD INH SCH ×5 (01:50→19:59)
[2017-04-30] MEDS: MethylPREDNISolone 40 mg Vial IVP SCH ×2 (05:59→16:53)
[2017-04-30 06:31] LABS: HEMOGLOBIN 10.2 g/dL (11.0-16.0); LYMPH # 0.9 K/uL (1.0-4.3); LYMPH % 3.3 % (20.0-40.0); MEAN CELL VOLUME 84.2 fL (81.0-99.0); MEAN CORPUSCULAR HGB CONC 34.5 g/dL (33.0-37.0); MEAN PLATELET VOLUME 8.1 fL (7.2-11.7); MONO # 1.2 K/uL (0.0-0.8); MONO % 4.5 % (0.0-10.0); NEUT # 25.4 K/uL (1.8-7.0); NEUT % 92.2 % (50.0-75.0); PLATELET COUNT 457 K/uL (130-400); RBC 3.51 Mil/uL (3.80-5.20); RED CELL DISTRIBUTION WIDTH 14.9 % (11.5-14.5); WHITE BLOOD COUNT 27.5 K/uL (4.8-10.8)
[2017-04-30 06:43] LABS: ALB/GLOB RATIO 0.8 (1.0-2.1); ALBUMIN 2.5 g/dL (3.5-5.0); CALCIUM 7.8 mg/dl (8.6-10.4); COMPLEMENT C4 < 8.0 mg/dL (14.0-44.0)
--- NOTE | 2017-04-30 07:22 | PN ---
DATE: SUBJECTIVE: The patient was transferred to the ICU. She is experiencing abdominal pain, nausea, as well as shortness of breath. The patient was evaluated today by Dr. Preciado, who recommended continued pain management, ID consult. The patient denied any chest pain. PHYSICAL EXAMINATION VITAL SIGNS: Blood pressure 173/57, heart rate 73, respirations 15, temperature 97.7. HEENT: Normocephalic. CHEST: Bilateral rhonchi. HEART: Heart sounds regular. ABDOMEN: Diminished bowel sounds. EXTREMITIES: 1+ pitting edema. LABORATORY DATA: Today's white count is , hemoglobin and hematocrit 11.9 and 35.2, platelet count 286,000. SMA-7, sodium 124, potassium 4.5, chloride 100, CO2 12, glucose 166. BUN 44, creatinine 2.3. ASSESSMENT: 1. Left adnexal mass with ascites, left pleural effusion and pericardial effusion, rule out underlying malignancy. 2. Acute renal failure. 3. Hyponatremia and hypocalcemia. 4. Chronic obstructive lung disease. 5. Consistent with underlying sepsis. 6. The initial sets are negative . 7. Hypertension. CONDITIONS: Continue current Hydralazine 50 mg p.o. twice a day, continue Rocephin 1 gm intravenous daily, continue albuterol inhaler, continue Lasix 80 mg intravenous twice a day, Norvasc 10 mg once a day, Solu-Medrol 40 mg intravenous q.[address] chest CT scan without contrast. The patient is scheduled for an echocardiogram tomorrow. I discussed the case with Dr. Lucas who requested me to continue followup until Sunday when he is coming back and this was conveyed to the patient. John Mitchell MD
[2017-04-30 08:24] LABS: BANDS 3 % (0-2); LYMPHOCYTE 2 % (20-40); MONOCYTE 2 % (0-10); NEUTROPHIL 93 % (50-75); TOTAL CELLS COUNTED 100
[2017-04-30 08:25] LABS: PLATELET ESTIMATE SLIGHTLY INCREASED (NORMAL)
[2017-04-30 08:26] LABS: BURR CELLS SLIGHT; POIKILOCYTOSIS SLIGHT
--- NOTE | 2017-04-30 08:27 | RAD ---
HISTORY: Effusion COMPARISON: 04/28/2017 FINDINGS: LUNGS: No active pulmonary disease. PLEURA: Probable small left pleural effusion, slightly decreased from prior. No right pleural effusion. No pneumothorax. CARDIOVASCULAR: Normal. OSSEOUS STRUCTURES: No significant abnormalities. VISUALIZED UPPER ABDOMEN: Normal. OTHER FINDINGS: None. IMPRESSION: Small left pleural effusion, decreased from prior.
--- NOTE | 2017-04-30 08:34 | CON ---
DATE: HISTORY OF PRESENT ILLNESS: A 66-year-old female admitted to the hospital with chief complaint of weakness, fatigue, dullness and the patient came to the ER. The patient admitted to the ER, was found to have renal failure, metabolic acidosis, infiltrates in the left lung with effusion. The patient came and was admitted. PHYSICAL EXAMINATION: GENERAL: The patient is awake, lethargic. VITAL SIGNS: Temperature 99, pulse is 90. HEENT: Within normal limits. NECK: Supple. CHEST: Symmetrical. HEART: Regular. ABDOMEN: Soft. EXTREMITIES: No edema. ASSESSMENT AND PLAN: The patient suffered from metabolic acidosis, renal failure, left-sided pleural effusion, rule out lung mass or pneumonia. The patient to get CAT scan of the chest, lot of fluid intake, antibiotic. Avel Langley MD
[2017-04-30 09:01] LABS: PROTHROMBIN TIME 11.2 SECONDS (9.7-12.2)
[2017-04-30] MEDS: Belladonna-Phenobarbital PO SCH ×2 (11:10→18:39)
[2017-04-30] MEDS: Pantoprazole 40 mg EC Tab PO SCH (11:11)
[2017-04-30] MEDS ORDERED: Propofol 10 mg/ml Inj (20 ML) ONE (11:16)
[2017-04-30] MEDS ORDERED: Lidocaine 4% (Laryng-O-Jet) Kit MM ONE (11:20)
[2017-04-30] MEDS ORDERED: Succinylcholine Chloride 20 mg/ml Syr (5 ml) IV ONE (11:20)
[2017-04-30] MEDS ORDERED: ePHEDrine 50 mg/ml Inj ONE (11:20)
[2017-04-30] MEDS ORDERED: Phenylephrine 10 mg/ml Inj ONE (11:20)
[2017-04-30] MEDS ORDERED: Rocuronium 10 mg/ml (5 ml) ONE ×2 (11:20→11:24)
[2017-04-30] MEDS ORDERED: Bupivacaine-Epi 0.5%-1:200,000 PF Inj IJ ONE (11:25)
--- NOTE | 2017-04-30 11:35 | CP.PCM.PN ---
Subjective - Date & Time of Evaluation Date of Evaluation: 04/30/17 Time of Evaluation: 11:31 - Subjective Subjective: Follow up Nephrology Consultation: Assessment: critical Acute Kidney Injury (N17.9) ? etiology. possible ATN Hyponatremia likely multi-factorial: thiazide diuretics, hypotonic fluids ? Increased stimulation of ADH from pelvic pathology concerning for neoplasm Anemia, s/p left nephrectomy for stones active smoker HTN, hyperlipidemia, adnexal mass ascites, hypoalbuminemia Nephrotic syndrome with 3.5 gram proteinuria amd microscopic hematuria. differential include (MPGN due to Hep C, FSGS due to solitary kidney, Membranous nephropathy possibly due to undiagnosed malignancy) Cecal thickening on CT scan metabolic acidosis with respi compensation and superimposed respi alkalosis heterogenous nodular liver with ascites and hx of Hep C ? cirrhosis Plan No acute need for renal replacement therapy at this time. good UOP and cr stable Hypertension control with meds as ordered. Patient not on ACEI/ARB due to TONA. Monitor Input/Output, daily weights and renal function with basic metabolic panel lasix 80 mg IV BID if stable hemodynamics in post-op period continue with sodium bicarb 1300 mg qid avoid correction in Na > 6-8 meq/24 hr. no need for hypertonic saline at present [facility], ICU, surgery, GI following work up for malignancy considering cecal thickening and adnexal mass as per [facility] and GI. consider heme/onc eval as well. will check anca/dna ab as proteinuria and microscopic hematuria on UA. she is not a candidate for kidney biopsy at present due to solitary kidney and pending oncologic work up. check RA factor and cryoglobulins as well Dose meds/antibiotics for reduced GFR. Avoid fleets enema/magnesium based laxatives. Avoid nephrotoxins/NSAIDs/ iodinated contrast (unless needed emergently) Glycemic control Further work up/management as per primary team Thanks for allowing me to participate in care of your patient. Will follow patient with you. Please call if any Qs. d/w daughter bedside. d/w team Dr Scott Andrade Office: [phone] reason for consult: TONA and hyponatremia HPI: Pt is a 66 F with hx of hypertension (years), smoker presented with complaints of abdomen pain and leg swelling, found to have ascites and left adnexal cystic mass, renal consult for TONA and hyponatremia. pt also reports hx of left nephrectomy for kidney stones she has een on HCTZ and also was receiving hypotonic fluids as D5/0.45% saline Denies OTC/herbal meds or NSAIDs No recent iodinated contrast exposure. No obvious episodes of low BP. ROS: Cardiovascular: No chest pain. Pulmonary: c/o shortness of breath with cough Gastrointestinal: improved abdominal pain No nausea. No vomiting. Genitourinary: No pain while urinating. Denies blood in urine. All other negative. going to OR 04/30/17 for expl lap Physical Examination: General Appearance: unccomfortable, in no acute respiratory distress, co- operative Vitals reviewed and noted as below Head; Atraumatic, normocephalic ENT: no ulcers no thrush. Tongue is midline. Oropharynx: no rash or ulcers. EYES: Pupils are equal, round and reactive to light accommodation. Eye muscles and extraocular movement intact. Sclera is anicteric. Neck; supple no lymphadenopathy, no thyromegaly or bruit Lungs: Improved respiratory rate/effort. Breath sounds bilateral with basal wheeze Heart: Normal rate. s1s2 normal. No rub or gallop. Extremities: trace edema. No varicose veins Neurological: Patient is awake and oriented to person, place and time. No focal deficit. Strength bilateral appropriate and equal. Intermittent sleepiness noted. Skin: Warm and dry. Normal turgor. No rash. Palpitation: Normal elasticity for age Abdomen: Abdomen is soft. Bowel sounds +. There is no abdominal tenderness, no guarding/rigidity no organomegaly. distended Psych: normal insight and normal affect/mood MSK: no joint tenderness or swelling. Digits and nails normal, no deformity : kidney or bladder not palpable Labs/imaging reviewed. Past medical history, past surgical history, family history, social history, allergy reviewed and noted as below Family hx: no hx of CKD. Rest non-contributory UA: 2+ protein and 2+ blood CT: left adnexal cyst. Objective - Vital Signs/Intake and Output Vital Signs (last 24 hours): Temp Pulse Resp BP Pulse Ox 98.2 F 74 16 111/39 L 92 L 04/30/17 08:00 04/30/17 10:34 04/30/17 10:34 04/30/17 10:34 04/30/17 10:34 Intake and Output: 04/30/17 04/30/17 06:59 18:59 Intake Total 50 100 Output Total 620 145 Balance -570 -45 - Medications Medications: Current Medications Albuterol/Ipratropium (Duoneb 3 Mg/0.5 Mg (3 Ml) Ud) 3 ml INH RQ6 [facility] Last Admin: 04/30/17 07:57 Dose: 3 ml Amlodipine Besylate (Norvasc) 10 mg PO DAILY [facility] Last Admin: 04/30/17 11:11 Dose: Not Given Belladonna/Phenobarbital () 1 tab PO TID [facility] Last Admin: 04/30/17 11:10 Dose: Not Given Calcium Acetate (Phoslo) 667 mg PO TID [facility] Dicyclomine HCl (Bentyl) 10 mg PO BID [facility] Last Admin: 04/30/17 11:10 Dose: Not Given Furosemide (Lasix) 80 mg IVP Q12 [facility] Last Admin: 04/30/17 10:07 Dose: 80 mg Hydralazine HCl (Apresoline) 50 mg PO BID [facility] Last Admin: 04/30/17 11:10 Dose: Not Given Hydralazine HCl (Apresoline) 25 mg PO Q4 PRN PRN Reason: Other Hydromorphone HCl (Dilaudid) 0.5 mg IVP Q4H PRN PRN Reason: Pain, severe (8-10) Last Admin: 04/30/17 08:16 Dose: 0.5 mg Ceftriaxone Sodium 1 gm/ (Sodium Chloride) 100 mls @ 100 mls/hr IVPB DAILY [facility] Last Admin: 04/30/17 10:07 Dose: 100 mls/hr Methylprednisolone (Solu-Medrol) 40 mg IVP Q8H [facility] Last Admin: 04/30/17 05:59 Dose: 40 mg Metoclopramide HCl (Reglan) 5 mg IVP Q6H [facility] Last Admin: 04/30/17 08:17 Dose: 5 mg Ondansetron HCl (Zofran Inj) 4 mg IVP Q6H PRN PRN Reason: Nausea/Vomiting Pantoprazole Sodium (Protonix Ec Tab) 40 mg PO DAILY [facility] Last Admin: 04/30/17 11:11 Dose: Not Given Sodium Bicarbonate (Sodium Bicarbonate Tab) 1,300 mg PO QID [facility] Last Admin: 04/30/17 11:11 Dose: Not Given - Labs Labs: 04/30/17 06:17 04/30/17 06:13 PT 11.2 SECONDS (9.7-12.2) 04/30/17 08:41 INR 1.0 04/30/17 08:41 APTT 24 SECONDS (21-34) 04/30/17 08:41
--- NOTE | 2017-04-30 12:40 | CP.CCUPN ---
<Alcon Cornejo R - Last Filed: 04/30/17 12:46> CCU Subjective - Physician Review Subjective (Free Text): Patient seen and examined. Intubated. Unresponsive to verbal stimuli. ROS not obtainable. Patient's relative in room, Per relative, patient had a left-sided nephrectomy 30 years ago for kidney stones. CCU Objective - Vital Signs / Intake & Output Vital Signs (Last 4 hours): Vital Signs Pulse Resp BP Pulse Ox 04/30/17 10:34 74 16 111/39 L 92 L 04/30/17 10:19 76 22 97/43 L 90 L 04/30/17 10:07 130/60 04/30/17 10:00 82 18 92 L 04/30/17 09:24 99 04/30/17 09:18 75 15 120/40 L 94 L 04/30/17 09:00 76 15 93 L Intake and Output (Last 8hrs): Intake & Output 04/29/17 04/30/17 04/30/17 22:59 06:59 14:59 Intake Total 200 600 Output Total 635 510 145 Balance -435 -510 455 Weight 146 lb 4.8 oz Intake: IV 500 Intake, IV Amount 100 Right Forearm 100 Oral 200 0 Output: Urine 635 510 145 Urethral (Ram[place]) 635 510 145 - Medications Active Medications: Active Medications Generic Name Dose Route Start Last Admin Trade Name Freq PRN Reason Stop Dose Admin Albuterol/Ipratropium 3 ml 04/27/17 20:00 04/30/17 07:57 Duoneb 3 Mg/0.5 Mg (3 Ml) Ud INH 3 ml RQ6 ALEX Administration Amlodipine Besylate 10 mg 04/26/17 15:00 04/30/17 11:11 Norvasc PO Not Given DAILY ALEX Belladonna/Phenobarbital 1 tab 04/26/17 18:00 04/30/17 11:10 PO Not Given TID ALEX Calcium Acetate 667 mg 04/30/17 14:00 Phoslo PO TID ALEX Dicyclomine HCl 10 mg 04/27/17 11:41 04/30/17 11:10 Bentyl PO Not Given BID ALEX Furosemide 80 mg 04/29/17 22:00 04/30/17 10:07 Lasix IVP 80 mg Q12 ALEX Administration Hydralazine HCl 50 mg 04/29/17 11:30 04/30/17 11:10 Apresoline PO Not Given BID ALEX Hydralazine HCl 25 mg 04/29/17 11:19 Apresoline PO Q4 PRN Other Hydromorphone HCl 0.5 mg 04/30/17 08:15 04/30/17 08:16 Dilaudid IVP 0.5 mg Q4H PRN Administration Pain, severe (8-10) Ceftriaxone Sodium 1 gm/ 100 mls @ 100 mls/hr 04/28/17 10:00 04/30/17 10:07 Sodium Chloride IVPB 100 mls/hr DAILY ALEX Administration Methylprednisolone 40 mg 04/28/17 23:00 04/30/17 05:59 Solu-Medrol IVP 40 mg Q8H ALEX Administration Metoclopramide HCl 5 mg 04/26/17 14:15 04/30/17 08:17 Reglan IVP 5 mg Q6H ALEX Administration Ondansetron HCl 4 mg 04/25/17 17:30 Zofran Inj IVP Q6H PRN Nausea/Vomiting Pantoprazole Sodium 40 mg 04/28/17 13:15 04/30/17 11:11 Protonix Ec Tab PO Not Given DAILY ALEX Sodium Bicarbonate 1,300 mg 04/29/17 10:00 04/30/17 11:11 Sodium Bicarbonate Tab PO Not Given QID [facility] - Patient Studies Lab Studies: Microbiology Studies 04/25/17 10:14 Blood Culture - Final Blood NO GROWTH AFTER 5 DAYS Gram Stain - Final TEST NOT PERFORMED 04/25/17 10:14 Blood Culture - Final Blood NO GROWTH AFTER 5 DAYS Gram Stain - Final TEST NOT PERFORMED 04/28/17 09:23 Urine Culture - Preliminary Urine,Clean Catch Gram Positive Cocci Lab Studies 04/30/17 04/30/17 04/30/17 Range/Units 10:35 10:30 08:41 WBC (4.8-10.8) K/uL RBC (3.80-5.20) Mil/uL Hgb (11.0-16.0) g/dL Hct (34.0-47.0) % MCV (81.0-99.0) fL MCH (27.0-31.0) pg MCHC (33.0-37.0) g/dL RDW (11.5-14.5) % Plt Count (130-400) K/uL MPV (7.2-11.7) fL Neut % (Auto) (50.0-75.0) % Lymph % (Auto) (20.0-40.0) % Parke % (Auto) (0.0-10.0) % Eos % (Auto) (0.0-4.0) % Baso % (Auto) (0.0-2.0) % Neut # (Auto) (1.8-7.0) K/uL Lymph # (Auto) (1.0-4.3) K/uL Parke # (Auto) (0.0-0.8) K/uL Eos # (Auto) (0.0-0.7) K/uL Baso # (Auto) (0.0-0.2) K/uL Neutrophils % (Manual) (50-75) % Band Neutrophils % (0-2) % Lymphocytes % (Manual) (20-40) % Monocytes % (Manual) (0-10) % Platelet Estimate (NORMAL) Poikilocytosis (manual [place] Cells PT 11.2 (9.7-12.2) SECONDS INR 1.0 APTT 24 (21-34) SECONDS Sodium (132-148) mmol/L Potassium (3.6-5.2) mmol/L Chloride (98-107) mmol/L Carbon Dioxide (22-30) mmol/L Anion Gap (10-20) BUN (7-17) mg/dL Creatinine (0.7-1.2) mg/dL Est GFR ( Amer) Est GFR (Non-Af Amer) POC Glucose (mg/dL) 122 H (65-110) mg/dL Random Glucose (65-105) mg/dL Calcium (8.6-10.4) mg/dl Phosphorus (2.5-4.5) mg/dL Magnesium (1.6-2.3) mg/dL Total Bilirubin (0.2-1.3) mg/dL AST (14-36) U/L ALT (9-52) U/L Alkaline Phosphatase (38-126) U/L Total Protein (6.3-8.3) g/dL Albumin (3.5-5.0) g/dL Globulin (2.2-3.9) gm/dL Albumin/Globulin Ratio (1.0-2.1) Complement C3 (88.0-165.0) mg/dL Complement C4 (14.0-44.0) mg/dL Blood Type O POSITIVE Antibody Screen Negative 04/30/17 04/30/17 04/30/17 Range/Units 06:17 06:13 06:13 WBC 27.5 H (4.8-10.8) K/uL RBC 3.51 L (3.80-5.20) Mil/uL Hgb 10.2 L (11.0-16.0) g/dL Hct 29.5 L (34.0-47.0) % MCV 84.2 (81.0-99.0) fL MCH 29.0 (27.0-31.0) pg MCHC 34.5 (33.0-37.0) g/dL RDW 14.9 H (11.5-14.5) % Plt Count 457 H (130-400) K/uL MPV 8.1 (7.2-11.7) fL Neut % (Auto) 92.2 H (50.0-75.0) % Lymph % (Auto) 3.3 L (20.0-40.0) % Parke % (Auto) 4.5 (0.0-10.0) % Eos % (Auto) 0.0 (0.0-4.0) % Baso % (Auto) 0.0 (0.0-2.0) % Neut # (Auto) 25.4 H (1.8-7.0) K/uL Lymph # (Auto) 0.9 L (1.0-4.3) K/uL Parke # (Auto) 1.2 H (0.0-0.8) K/uL Eos # (Auto) 0.0 (0.0-0.7) K/uL Baso # (Auto) 0.0 (0.0-0.2) K/uL Neutrophils % (Manual) 93 H (50-75) % Band Neutrophils % 3 H (0-2) % Lymphocytes % (Manual) 2 L (20-40) % Monocytes % (Manual) 2 (0-10) % Platelet Estimate Slightly increased H (NORMAL) Poikilocytosis (manual Slight Jose Cells Slight PT (9.7-12.2) SECONDS INR APTT (21-34) SECONDS Sodium 129 L (132-148) mmol/L Potassium 3.9 (3.6-5.2) mmol/L Chloride 99 (98-107) mmol/L Carbon Dioxide 17 L (22-30) mmol/L Anion Gap 17 (10-20) BUN 55 H (7-17) mg/dL Creatinine 2.1 H (0.7-1.2) mg/dL Est GFR ( Amer) 28 Est GFR (Non-Af Amer) 23 POC Glucose (mg/dL) (65-110) mg/dL Random Glucose 130 H (65-105) mg/dL Calcium 7.8 L (8.6-10.4) mg/dl Phosphorus 6.8 H (2.5-4.5) mg/dL Magnesium 2.3 (1.6-2.3) mg/dL Total Bilirubin 0.3 (0.2-1.3) mg/dL AST 34 (14-36) U/L ALT 30 (9-52) U/L Alkaline Phosphatase 140 H D (38-126) U/L Total Protein 5.9 L (6.3-8.3) g/dL Albumin 2.5 L (3.5-5.0) g/dL Globulin 3.3 (2.2-3.9) gm/dL Albumin/Globulin Ratio 0.8 L (1.0-2.1) Complement C3 86.0 L (88.0-165.0) mg/dL Complement C4 < 8.0 L (14.0-44.0) mg/dL Blood Type Antibody Screen Laboratory Results - last 24 hr 04/30/17 04/30/17 04/30/17 06:13 06:13 06:17 WBC 27.5 H RBC 3.51 L Hgb 10.2 L Hct 29.5 L MCV 84.2 MCH 29.0 MCHC 34.5 RDW 14.9 H Plt Count 457 H MPV 8.1 Neut % (Auto) 92.2 H Lymph % (Auto) 3.3 L Parke % (Auto) 4.5 Eos % (Auto) 0.0 Baso % (Auto) 0.0 Neut # (Auto) 25.4 H Lymph # (Auto) 0.9 L Parke # (Auto) 1.2 H Eos # (Auto) 0.0 Baso # (Auto) 0.0 Neutrophils % (Manual) 93 H Band Neutrophils % 3 H Lymphocytes % (Manual) 2 L Monocytes % (Manual) 2 Platelet Estimate Slightly increased H Poikilocytosis (manual Slight [place] Cells Slight PT INR APTT Sodium 129 L Potassium 3.9 Chloride 99 Carbon Dioxide 17 L Anion Gap 17 BUN 55 H Creatinine 2.1 H Est GFR ( Amer) 28 Est GFR (Non-Af Amer) 23 POC Glucose (mg/dL) Random Glucose 130 H Calcium 7.8 L Phosphorus 6.8 H Magnesium 2.3 Total Bilirubin 0.3 AST 34 ALT 30 Alkaline Phosphatase 140 H D Total Protein 5.9 L Albumin 2.5 L Globulin 3.3 Albumin/Globulin Ratio 0.8 L Complement C3 86.0 L Complement C4 < 8.0 L Blood Type Antibody Screen 04/30/17 04/30/17 04/30/17 08:41 10:30 10:35 WBC RBC Hgb Hct MCV MCH MCHC RDW Plt Count MPV Neut % (Auto) Lymph % (Auto) Parke % (Auto) Eos % (Auto) Baso % (Auto) Neut # (Auto) Lymph # (Auto) Parke # (Auto) Eos # (Auto) Baso # (Auto) Neutrophils % (Manual) Band Neutrophils % Lymphocytes % (Manual) Monocytes % (Manual) Platelet Estimate Poikilocytosis (manual Jose Cells PT 11.2 INR 1.0 APTT 24 Sodium Potassium Chloride Carbon Dioxide Anion Gap BUN Creatinine Est GFR ( Amer) Est GFR (Non-Af Amer) POC Glucose (mg/dL) 122 H Random Glucose Calcium Phosphorus Magnesium Total Bilirubin AST ALT Alkaline Phosphatase Total Protein Albumin Globulin Albumin/Globulin Ratio Complement C3 Complement C4 Blood Type O POSITIVE Antibody Screen Negative EKG/Cardiology Studies: Cardiology / EKG Studies 04/30/17 09:38 EKG [ELECTROCARDIOGRAM] Stat Comment: Mode Of Transportation: Reason For Exam: need ekg before OR Fingerstick Blood Sugar Results: 123 - Procedures Procedures (Free Text): - Constitutional Appears: intubated, altered, non-responsive to verbal stimuli - Head Exam Head Exam: ATRAUMATIC, NORMAL INSPECTION, NORMOCEPHALIC - ENT Exam ENT Exam: Mucous Membranes Moist, Normal Exam - Respiratory Exam Respiratory Exam: Rhonchi (mild), NORMAL BREATHING PATTERN. absent: Accessory Muscle Use, Respiratory Distress - Cardiovascular Exam Cardiovascular Exam: REGULAR RHYTHM - GI/Abdominal Exam GI & Abdominal Exam: Distended (mildly), Guarding (lower quadrants), Soft, Tenderness. absent: Firm, Rebound - Extremities Exam Extremities Exam: Full ROM, Normal Inspection - Neurological Exam Neurological Exam: Altered, not awake - Skin Skin Exam: Dry, Intact, Normal Color, Warm Review of Systems - Review of Systems Systems not reviewed;Unavailable: Intubated Critical Care Progress Note - Nutrition Nutrition: Nutrition Category Date Time Status NPO Diet [DIET] Diets 04/30/17 Breakfast Active Assessment/Plan - Assessment and Plan (Free Text) Assessment: 66F w/ascites as seen on CT of abdomen, pelvic mass: neuro: Dilaudid 0.5mg IV Q4H PRN for pain control Cardio: hx of diastolic heart failure, HTN, HLD Senior Resident Care Director Dr Mitchell on board Norvasc 10mg PO QD Lasix 80mg IVP BID hydralazine 50mg PO BID Hydralazine 25mg PO Q4H PRN Stat EKG and Echo before OR Patient not on ACEI/ARB due to TONA Pulm: hx of COPD, wheezing resolved, possible L PNA/[employer] Manager Dr Langley on board duoneb 3ml INH RQ6 solumedrol 40mg IVP Q8 Ceftriaxone 1g IV QD GI: Cecal thickening on CT scan GI Dr Butt on board NPO Reglan 5mg IVP Q6 PRN 1 tab PO TID Bentyl 10mg PO BID Renal: TONA, CKD, s/p left nephrectomy for stones Diplomatic Interpreter Dr Andrade on board * Nephrotic syndrome with 3.5 gram proteinuria amd microscopic hematuria. differential include (MPGN due to Hep C, FSGS due to solitary kidney, Membranous nephropathy possibly due to undiagnosed malignancy) * will check anca/dna ab as proteinuria and microscopic hematuria on UA Sodium Bicarb 1,300 mg PO QID Phoslo 667mg PO TID Electrolytes: hyponatremia Diplomatic Interpreter Dr Andrade on board * Hyponatremia likely multi-factorial: thiazide diuretics, hypotonic fluids ? 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 mass BOARD STACKER Dr Barajas consulted - signed off PPx: Protonix 40mg PO QD <Jaki Read - Last Filed: 04/30/17 15:35> CCU Objective - Vital Signs / Intake & Output Intake and Output (Last 8hrs): Intake & Output 04/30/17 04/30/17 04/30/17 06:59 14:59 22:59 Intake Total 1000 Output Total 510 145 Balance -510 855 Weight 146 lb 4.8 oz Intake: IV 900 Intake, IV Amount 100 Right Forearm 100 Oral 0 Output: Urine 510 145 Urethral (Ram[place]) 510 145 - Medications Active Medications: Active Medications Generic Name Dose Route Start Last Admin Trade Name Freq PRN Reason Stop Dose Admin Albuterol/Ipratropium 3 ml 04/27/17 20:00 04/30/17 14:22 Duoneb 3 Mg/0.5 Mg (3 Ml) Ud INH Not Given RQ6 ALEX Calcium Acetate 667 mg 04/30/17 14:00 Phoslo PO TID ALEX Hydromorphone HCl 0.5 mg 04/30/17 14:10 Dilaudid IVP Q6H PRN Pain, severe (8-10) Ceftriaxone Sodium 1 gm/ 100 mls @ 100 mls/hr 04/28/17 10:00 04/30/17 10:07 Sodium Chloride IVPB 100 mls/hr DAILY ALEX Administration Acetaminophen 100 mls @ 100 mls/hr 04/30/17 14:00 Ofirmev IV 05/01/17 14:01 Q6H ALEX Lorazepam 2 mg 04/30/17 14:09 04/30/17 14:29 Ativan IVP 2 mg Q6H PRN Administration Anxiety Methylprednisolone 40 mg 04/30/17 14:15 Solu-Medrol IVP Q12H ALEX Pantoprazole Sodium 40 mg 04/28/17 13:15 04/30/17 11:11 Protonix Ec Tab PO Not Given DAILY ALEX Sodium Bicarbonate 1,300 mg 04/29/17 10:00 04/30/17 11:11 Sodium Bicarbonate Tab PO Not Given QID ALEX - Patient Studies Lab Studies: Microbiology Studies 04/25/17 10:14 Blood Culture - Final Blood NO GROWTH AFTER 5 DAYS Gram Stain - Final TEST NOT PERFORMED 04/25/17 10:14 Blood Culture - Final Blood NO GROWTH AFTER 5 DAYS Gram Stain - Final TEST NOT PERFORMED 04/28/17 09:23 Urine Culture - Preliminary Urine,Clean Catch Gram Positive Cocci Lab Studies 04/30/17 04/30/17 04/30/17 Range/Units 14:03 10:35 10:30 WBC (4.8-10.8) K/uL RBC (3.80-5.20) Mil/uL Hgb (11.0-16.0) g/dL Hct (34.0-47.0) % MCV (81.0-99.0) fL MCH (27.0-31.0) pg MCHC (33.0-37.0) g/dL RDW (11.5-14.5) % Plt Count (130-400) K/uL MPV (7.2-11.7) fL Neut % (Auto) (50.0-75.0) % Lymph % (Auto) (20.0-40.0) % Parke % (Auto) (0.0-10.0) % Eos % (Auto) (0.0-4.0) % Baso % (Auto) (0.0-2.0) % Neut # (Auto) (1.8-7.0) K/uL Lymph # (Auto) (1.0-4.3) K/uL Parke # (Auto) (0.0-0.8) K/uL Eos # (Auto) (0.0-0.7) K/uL Baso # (Auto) (0.0-0.2) K/uL Neutrophils % (Manual) (50-75) % Band Neutrophils % (0-2) % Lymphocytes % (Manual) (20-40) % Monocytes % (Manual) (0-10) % Platelet Estimate (NORMAL) Poikilocytosis (manual Jose Cells PT (9.7-12.2) SECONDS INR APTT (21-34) SECONDS Puncture Site Lb pCO2 36 (35-45) mm/Hg pO2 126 H (80-100) mm/Hg HCO3 13.9 L (21-28) mmol/L ABG pH 7.18 L* (7.35-7.45) ABG Total CO2 14.5 L (22-28) mmol/L ABG O2 Saturation 98.9 H (95-98) % ABG Base Excess -14.1 L (-2.0-3.0) mmol/L Pierre Test Na ABG Potassium 3.9 (3.6-5.2) mmol/L A-a O2 Difference 542.0 mm/Hg Respiratory Index 4.3 Glucose 173 H (65-105) mg/dl Lactate 1.2 (0.7-2.1) mmol/L Vent Mode Prvc Mechanical Rate 18 FiO2 100.0 % Tidal Volume 450 PEEP 5 Crit Value Called To Dr read Crit Value Called By Adela correa division human resources manager Crit Value Read Back Y Blood Gas Notified Time 1407 Sodium 134.0 (132-148) mmol/L Potassium (3.6-5.2) mmol/L Chloride 109.0 H (98-107) mmol/L Carbon Dioxide (22-30) mmol/L Anion Gap (10-20) BUN (7-17) mg/dL Creatinine (0.7-1.2) mg/dL Est GFR ( Amer) Est GFR (Non-Af Amer) POC Glucose (mg/dL) 122 H (65-110) mg/dL Random Glucose (65-105) mg/dL Calcium (8.6-10.4) mg/dl Phosphorus (2.5-4.5) mg/dL Magnesium (1.6-2.3) mg/dL Total Bilirubin (0.2-1.3) mg/dL AST (14-36) U/L ALT (9-52) U/L Alkaline Phosphatase (38-126) U/L Total Protein (6.3-8.3) g/dL Albumin (3.5-5.0) g/dL Globulin (2.2-3.9) gm/dL Albumin/Globulin Ratio (1.0-2.1) Arterial Blood Potassium 3.9 (3.6-5.2) mmol/L Complement C3 (88.0-165.0) mg/dL Complement C4 (14.0-44.0) mg/dL Blood Type O POSITIVE Antibody Screen Negative 02/19/18 02/19/18 02/19/18 Range/Units 08:41 06:17 06:13 WBC 27.5 H (4.8-10.8) K/uL RBC 3.51 L (3.80-5.20) Mil/uL Hgb 10.2 L (11.0-16.0) g/dL Hct 29.5 L (34.0-47.0) % MCV 84.2 (81.0-99.0) fL MCH 29.0 (27.0-31.0) pg MCHC 34.5 (33.0-37.0) g/dL RDW 14.9 H (11.5-14.5) % Plt Count 457 H (130-400) K/uL MPV 8.1 (7.2-11.7) fL Neut % (Auto) 92.2 H (50.0-75.0) % Lymph % (Auto) 3.3 L (20.0-40.0) % Parke % (Auto) 4.5 (0.0-10.0) % Eos % (Auto) 0.0 (0.0-4.0) % Baso % (Auto) 0.0 (0.0-2.0) % Neut # (Auto) 25.4 H (1.8-7.0) K/uL Lymph # (Auto) 0.9 L (1.0-4.3) K/uL Parke # (Auto) 1.2 H (0.0-0.8) K/uL Eos # (Auto) 0.0 (0.0-0.7) K/uL Baso # (Auto) 0.0 (0.0-0.2) K/uL Neutrophils % (Manual) 93 H (50-75) % Band Neutrophils % 3 H (0-2) % Lymphocytes % (Manual) 2 L (20-40) % Monocytes % (Manual) 2 (0-10) % Platelet Estimate Slightly increased H (NORMAL) Poikilocytosis (manual Slight Jose Cells Slight PT 11.2 (9.7-12.2) SECONDS INR 1.0 APTT 24 (21-34) SECONDS Puncture Site pCO2 (35-45) mm/Hg pO2 (80-100) mm/Hg HCO3 (21-28) mmol/L ABG pH (7.35-7.45) ABG Total CO2 (22-28) mmol/L ABG O2 Saturation (95-98) % ABG Base Excess (-2.0-3.0) mmol/L Pierre Test ABG Potassium (3.6-5.2) mmol/L A-a O2 Difference mm/Hg Respiratory Index Glucose (65-105) mg/dl Lactate (0.7-2.1) mmol/L Vent Mode Mechanical Rate FiO2 % Tidal Volume PEEP Crit Value Called To Crit Value Called By Crit Value Read Back Blood Gas Notified Time Sodium (132-148) mmol/L Potassium (3.6-5.2) mmol/L Chloride (98-107) mmol/L Carbon Dioxide (22-30) mmol/L Anion Gap (10-20) BUN (7-17) mg/dL Creatinine (0.7-1.2) mg/dL Est GFR ( Amer) Est GFR (Non-Af Amer) POC Glucose (mg/dL) (65-110) mg/dL Random Glucose (65-105) mg/dL Calcium (8.6-10.4) mg/dl Phosphorus (2.5-4.5) mg/dL Magnesium (1.6-2.3) mg/dL Total Bilirubin (0.2-1.3) mg/dL AST (14-36) U/L ALT (9-52) U/L Alkaline Phosphatase (38-126) U/L Total Protein (6.3-8.3) g/dL Albumin (3.5-5.0) g/dL Globulin (2.2-3.9) gm/dL Albumin/Globulin Ratio (1.0-2.1) Arterial Blood Potassium (3.6-5.2) mmol/L Complement C3 86.0 L (88.0-165.0) mg/dL Complement C4 < 8.0 L (14.0-44.0) mg/dL Blood Type Antibody Screen 04/30/17 Range/Units 06:13 WBC (4.8-10.8) K/uL RBC (3.80-5.20) Mil/uL Hgb (11.0-16.0) g/dL Hct (34.0-47.0) % MCV (81.0-99.0) fL MCH (27.0-31.0) pg MCHC (33.0-37.0) g/dL RDW (11.5-14.5) % Plt Count (130-400) K/uL MPV (7.2-11.7) fL Neut % (Auto) (50.0-75.0) % Lymph % (Auto) (20.0-40.0) % Parke % (Auto) (0.0-10.0) % Eos % (Auto) (0.0-4.0) % Baso % (Auto) (0.0-2.0) % Neut # (Auto) (1.8-7.0) K/uL Lymph # (Auto) (1.0-4.3) K/uL Parke # (Auto) (0.0-0.8) K/uL Eos # (Auto) (0.0-0.7) K/uL Baso # (Auto) (0.0-0.2) K/uL Neutrophils % (Manual) (50-75) % Band Neutrophils % (0-2) % Lymphocytes % (Manual) (20-40) % Monocytes % (Manual) (0-10) % Platelet Estimate (NORMAL) Poikilocytosis (manual Jose Cells PT (9.7-12.2) SECONDS INR APTT (21-34) SECONDS Puncture Site pCO2 (35-45) mm/Hg pO2 (80-100) mm/Hg HCO3 (21-28) mmol/L ABG pH (7.35-7.45) ABG Total CO2 (22-28) mmol/L ABG O2 Saturation (95-98) % ABG Base Excess (-2.0-3.0) mmol/L Pierre Test ABG Potassium (3.6-5.2) mmol/L A-a O2 Difference mm/Hg Respiratory Index Glucose (65-105) mg/dl Lactate (0.7-2.1) mmol/L Vent Mode Mechanical Rate FiO2 % Tidal Volume PEEP Crit Value Called To Crit Value Called By Crit Value Read Back Blood Gas Notified Time Sodium 129 L (132-148) mmol/L Potassium 3.9 (3.6-5.2) mmol/L Chloride 99 (98-107) mmol/L Carbon Dioxide 17 L (22-30) mmol/L Anion Gap 17 (10-20) BUN 55 H (7-17) mg/dL Creatinine 2.1 H (0.7-1.2) mg/dL Est GFR ( Amer) 28 Est GFR (Non-Af Amer) 23 POC Glucose (mg/dL) (65-110) mg/dL Random Glucose 130 H (65-105) mg/dL Calcium 7.8 L (8.6-10.4) mg/dl Phosphorus 6.8 H (2.5-4.5) mg/dL Magnesium 2.3 (1.6-2.3) mg/dL Total Bilirubin 0.3 (0.2-1.3) mg/dL AST 34 (14-36) U/L ALT 30 (9-52) U/L Alkaline Phosphatase 140 H D (38-126) U/L Total Protein 5.9 L (6.3-8.3) g/dL Albumin 2.5 L (3.5-5.0) g/dL Globulin 3.3 (2.2-3.9) gm/dL Albumin/Globulin Ratio 0.8 L (1.0-2.1) Arterial Blood Potassium (3.6-5.2) mmol/L Complement C3 (88.0-165.0) mg/dL Complement C4 (14.0-44.0) mg/dL Blood Type Antibody Screen Laboratory Results - last 24 hr 04/30/17 04/30/17 04/30/17 06:13 06:13 06:17 WBC 27.5 H RBC 3.51 L Hgb 10.2 L Hct 29.5 L MCV 84.2 MCH 29.0 MCHC 34.5 RDW 14.9 H Plt Count 457 H MPV 8.1 Neut % (Auto) 92.2 H Lymph % (Auto) 3.3 L Parke % (Auto) 4.5 Eos % (Auto) 0.0 Baso % (Auto) 0.0 Neut # (Auto) 25.4 H Lymph # (Auto) 0.9 L Parke # (Auto) 1.2 H Eos # (Auto) 0.0 Baso # (Auto) 0.0 Neutrophils % (Manual) 93 H Band Neutrophils % 3 H Lymphocytes % (Manual) 2 L Monocytes % (Manual) 2 Platelet Estimate Slightly increased H Poikilocytosis (manual Slight [place] Cells Slight PT INR APTT Puncture Site pCO2 pO2 HCO3 ABG pH ABG Total CO2 ABG O2 Saturation ABG Base Excess Pierre Test ABG Potassium A-a O2 Difference Respiratory Index Glucose Lactate Vent Mode Mechanical Rate FiO2 Tidal Volume PEEP Crit Value Called To Crit Value Called By Crit Value Read Back Blood Gas Notified Time Sodium 129 L Potassium 3.9 Chloride 99 Carbon Dioxide 17 L Anion Gap 17 BUN 55 H Creatinine 2.1 H Est GFR ( Amer) 28 Est GFR (Non-Af Amer) 23 POC Glucose (mg/dL) Random Glucose 130 H Calcium 7.8 L Phosphorus 6.8 H Magnesium 2.3 Total Bilirubin 0.3 AST 34 ALT 30 Alkaline Phosphatase 140 H D Total Protein 5.9 L Albumin 2.5 L Globulin 3.3 Albumin/Globulin Ratio 0.8 L Arterial Blood Potassium Complement C3 86.0 L Complement C4 < 8.0 L Blood Type Antibody Screen 04/30/17 04/30/17 04/30/17 08:41 10:30 10:35 WBC RBC Hgb Hct MCV MCH MCHC RDW Plt Count MPV Neut % (Auto) Lymph % (Auto) Parke % (Auto) Eos % (Auto) Baso % (Auto) Neut # (Auto) Lymph # (Auto) Parke # (Auto) Eos # (Auto) Baso # (Auto) Neutrophils % (Manual) Band Neutrophils % Lymphocytes % (Manual) Monocytes % (Manual) Platelet Estimate Poikilocytosis (manual [place] Cells PT 11.2 INR 1.0 APTT 24 Puncture Site pCO2 pO2 HCO3 ABG pH ABG Total CO2 ABG O2 Saturation ABG Base Excess Pierre Test ABG Potassium A-a O2 Difference Respiratory Index Glucose Lactate Vent Mode Mechanical Rate FiO2 Tidal Volume PEEP Crit Value Called To Crit Value Called By Crit Value Read Back Blood Gas Notified Time Sodium Potassium Chloride Carbon Dioxide Anion Gap BUN Creatinine Est GFR ( Amer) Est GFR (Non-Af Amer) POC Glucose (mg/dL) 122 H Random Glucose Calcium Phosphorus Magnesium Total Bilirubin AST ALT Alkaline Phosphatase Total Protein Albumin Globulin Albumin/Globulin Ratio Arterial Blood Potassium Complement C3 Complement C4 Blood Type O POSITIVE Antibody Screen Negative 04/30/17 14:03 WBC RBC Hgb Hct MCV MCH MCHC RDW Plt Count MPV Neut % (Auto) Lymph % (Auto) Parke % (Auto) Eos % (Auto) Baso % (Auto) Neut # (Auto) Lymph # (Auto) Parke # (Auto) Eos # (Auto) Baso # (Auto) Neutrophils % (Manual) Band Neutrophils % Lymphocytes % (Manual) Monocytes % (Manual) Platelet Estimate Poikilocytosis (manual Jose Cells PT INR APTT Puncture Site Lb pCO2 36 pO2 126 H HCO3 13.9 L ABG pH 7.18 L* ABG Total CO2 14.5 L ABG O2 Saturation 98.9 H ABG Base Excess -14.1 L Pierre Test Na ABG Potassium 3.9 A-a O2 Difference 542.0 Respiratory Index 4.3 Glucose 173 H Lactate 1.2 Vent Mode Prvc Mechanical Rate 18 FiO2 100.0 Tidal Volume 450 PEEP 5 Crit Value Called To Dr read Crit Value Called By Adela correa division human resources manager Crit Value Read Back Y Blood Gas Notified Time 1407 Sodium 134.0 Potassium Chloride 109.0 H Carbon Dioxide Anion Gap BUN Creatinine Est GFR ( Amer) Est GFR (Non-Af Amer) POC Glucose (mg/dL) Random Glucose Calcium Phosphorus Magnesium Total Bilirubin AST ALT Alkaline Phosphatase Total Protein Albumin Globulin Albumin/Globulin Ratio Arterial Blood Potassium 3.9 Complement C3 Complement C4 Blood Type Antibody Screen EKG/Cardiology Studies: Cardiology / EKG Studies 04/30/17 09:38 EKG [ELECTROCARDIOGRAM] Stat Comment: Mode Of Transportation: Reason For Exam: need ekg before OR 04/30/17 14:13 EKG [ELECTROCARDIOGRAM] Stat Comment: Mode Of Transportation: Reason For Exam: ekg post OR 04/30/17 14:46 EKG [ELECTROCARDIOGRAM] Routine Comment: Mode Of Transportation: Reason For Exam: postop Critical Care Progress Note - Nutrition Nutrition: Nutrition Category Date Time Status Liquid Diet [DIET] Diets 04/30/17 Dinner Active Attending/Attestation - Attestation I have personally seen and examined this patient.: Yes I have fully participated in the care of the patient.: Yes I have reviewed all pertinent clinical information: Yes Notes (Text): 04/30/17 15:33 Patient was seen by me around 10 AM, at the time patient was getting ready to go to the operating room. 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 There was a concern about ongoing abdominal process, and elevated white count. Adnexal mass in the pelvic area, which was removed by the laparoscopic surgery. Postoperatively patient developed bradycardia secondary to laboratory none. Patient was hypertensive initially. Currently patient is on ventilator postoperatively. Bradycardia noted. Acidosis present. Bicarbonate was given. Will start the patient on bicarbonate drip. Her prognosis is guarded. Please repeat the labs. Cultures were taken. Chest x-ray showing new infiltrative changes in the lungs. Patient also has a thick bloody secretion from the ET tube noted. Will hold off anticoagulation. Patient is high risk for deep venous thrombosis. Patient currently having diffuse anasarca, ascites, pleural effusion. Discussed with the management analyst. Hepatitis C possible liver cirrhosis is possible. 2 closely monitor. Repeat the blood work. Spoke to the family.
--- NOTE | 2017-04-30 13:05 | PCM.SURG1 ---
Surgeon's Initial Post Op Note - Surgeon's Notes Surgeon: Dr. Hollingsworth Fundraiser: Shaniqua Pulliam, PGY-1 Type of Anesthesia: General Endo Pre-Operative Diagnosis: Intractable abdominal pain Operative Findings: See op report Post-Operative Diagnosis: Left ovarian mass Operation Performed: Diagnostic laparoscopy and left salpingo-oopherectomy Specimen/Specimens Removed: Left ovary and left tube, left ovarian mass Estimated Blood Loss: EBL {In ML}: 15 Blood Products Given: N/A Drains Used: No Drains Post-Op Condition: Good Date of Surgery/Procedure: 04/30/17 Time of Surgery/Procedure: 13:05
[2017-04-30] MEDS ORDERED: Albumin Human 25% (12.5 gm/50 ml) IV ONE (13:52)
[2017-04-30 14:08] LABS: ARTERIAL BLOOD GAS HCO3 13.9 mmol/L (21-28); ARTERIAL BLOOD GAS O2 SAT 98.9 % (95-98); ARTERIAL BLOOD GAS PCO2 36 mm/Hg (35-45); ARTERIAL BLOOD GAS PH 7.18 (7.35-7.45); ARTERIAL BLOOD GAS PO2 126 mm/Hg (80-100); ARTERIAL BLOOD GAS TCO2 14.5 mmol/L (22-28)
[2017-04-30] MEDS ORDERED: HYDROmorphone 0.5 mg/0.5 ml ISec IVP PRN (14:10)
[2017-04-30] MEDS ORDERED: Sodium Bicarbonate (8.4%) 50 Meq Syringe IVP ONE (14:13)
--- NOTE | 2017-04-30 14:49 | RAD ---
HISTORY: s/p intubation/lap COMPARISON: Chest x-ray performed 04/29/17 TECHNIQUE: Chest, one view. FINDINGS: Endotracheal tube terminates approximately 1.8 cm above the karlos. LUNGS: Inferior right upper lobe and left lower lobe consolidation. PLEURA: Probable small left pleural effusion. No definite pneumothorax . CARDIOVASCULAR: Cardiomegaly. OSSEOUS STRUCTURES: Degenerative changes. Osseous demineralization. VISUALIZED UPPER ABDOMEN: Upper abdominal surgical clips. Nonspecific bowel gas pattern. OTHER FINDINGS: None. IMPRESSION: Endotracheal tube terminates approximately 1.8 cm above the karlos. [place] positioning approximately 3 cm above the karlos. Inferior right upper lobe and left lower lobe consolidation. Probable small left pleural effusion. Cardiomegaly. Findings discussed with BRYCE Mandujano on 04/30/17 at 2:43 p.m.
--- NOTE | 2017-04-30 16:16 | CP.PCM.CON ---
History of Present Illness - History of Present Illness History of Present Illness: 66 y/o female admitted to [facility] for abdominal fluid/distension/ pain. 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 daughter Family Hx: Denies Review of Systems - Review of Systems Systems not reviewed;Unavailable: Altered Mental Status - Constitutional Constitutional: As Per HPI - EENT Eyes: absent: As Per HPI, Blind Spots, Blurred Vision, Change in Vision, Decreased Night Vision, Diplopia, Discharge, Dry Eye, Exophthalmos, Floaters, Irritation, Itchy Eyes, Loss of Peripheral Vision, Pain, Photophobia, Requires Corrective Lenses, Sees Flashes, Spots in Vision, Tunnel Vision, Other Visual Disturbances, Loss of Vision, Other Ears: absent: As Per HPI, Decreased Hearing, Ear Discharge, Ear Pain, Tinnitus, Abnormal Hearing, Disequilibrium, Dizziness, Other Nose/Mouth/Throat: absent: As Per HPI, Epistaxis, Nasal Congestion, Nasal Discharge, Nasal Obstruction, Nasal Trauma, Nose Pain, Post Nasal Drip, Sinus Pain, Sinus Pressure, Bleeding Gums, Change in Voice, Dental Pain, Dry Mouth, Dysphagia, Halitosis, Hoarsness, Lip Swelling, Mouth Lesions, Mouth Pain, Odynophagia, Sore Throat, Throat Swelling, Tongue Swelling, Facial Pain, Neck Pain, Neck Mass, Other - Breasts Breasts: absent: As Per HPI, Change in Shape, Mass, Pain, Nipple Discharge, Nipple Inversion, Skin Changes, Swelling, Other - Cardiovascular Cardiovascular: absent: As Per HPI, Acrocyanosis, Chest Pain, Chest Pain at Rest , Chest Pain with Activity, Claudication, Diaphoresis, Dyspnea, Dyspnea on Exertion, Edema, Irregular Heart Rhythm, Pain Radiating to Arm/Neck/Jaw, Leg Edema, Leg Ulcers, Lightheadedness, Orthopnea, Palpitations, Paroxysmal Nocturnal Dyspnea, Pedal Edema, Radiating Pain, Rapid Heart Rate, Slow Heart Rate, Syncope, Other - Respiratory Respiratory: absent: As Per HPI, Cough, Dyspnea, Hemoptysis, Dyspnea on Exertion , Wheezing, Snoring, Stridor, Pain on Inspiration, Chest Congestion, Excessive Mucous Production, Change in Mucous Color, Pain with Coughing, Other - Gastrointestinal Gastrointestinal: absent: As Per HPI, Abdominal Pain, Belching, Bloating, Change in Bowel Habits, Change in Stool Character, Coffee Ground Emesis, Constipation, Cramping, Diarrhea, Dyspepsia, Dysphagia, Early Satiety, Excessive Flatus, Fecal Incontinence, Heartburn, Hematemesis, Hematochezia, Loose Stools, Melena, Nausea, Odynophagia, Temesmus, Vomiting, Other - Genitourinary Genitourinary: absent: As Per HPI, Change in Urinary Stream, Difficulty Urinating, Dysuria, Flank Pain, Hematuria, Pyuria, Nocturia, Urinary Incontinence, Urinary Frequency, Urinary Hesitance, Urinary Urgency, Voiding Freq/Small Amts, Freq UTI, Hx Renal/Bladder Calculi, Hx /Renal Surgery, Bladder Distension, Other - Reproductive: Female Reproductive:Female: absent: As Per HPI, Amenorrhea, Amenorrhea/ Control, Currently Menstual, Cycle <21 Days, Cycle >35 Days, Cycle Variable, Menses 1-7 Days, Menses >/= 8 Days, Menses Variable, Cycle > 4 Weeks Between, No Menses for 6 Months, Heavy Menses, Light Menses, Normal Menses, Spotting Between Cycles , S/P Hysterectomy, Menopausal, Post Menopausal, Premenarche, Abnormal Vaginal Bleeding, Dysmenorrhea, Dyspareunia, Genital Lesions, Genital Pruritis, Pelvic Pain, Prolapse Symptoms, Sexual Dysfunction, Vaginal Discharge, Vaginal Dryness , Vaginal Odor, Vaginal Pruritis, Other - Menstruation Menstruation: absent: As Per HPI, Amenorrhea, Amenorrhea/ Control, Currently Menstual, Cycle <21 Days, Cycle >35 Days, Cycle Variable, Menses 1-7 Days, Menses >/= 8 Days, Menses Variable, Cycle > 4 Weeks Between, No Menses for 6 Months, Heavy Menses, Light Menses, Normal Menses, Spotting Between Cycles , S/P Hysterectomy, Menopausal, Post Menopausal, Premenarche, Abnormal Vaginal Bleeding, Dysmenorrhea, Other - Musculoskeletal Musculoskeletal: absent: As Per HPI, Abnormal Gait, Arthralgias, Atrophy, Back Pain, Deformity, Joint Swelling, Limited Range of Motion, Loss of Height, Muscle Cramps, Muscle Weakness, Myalgias, Neck Pain, Numbness, Radiating Pain into Limb, Stiffness, Tingling, Other - Integumentary Integumentary: absent: As Per HPI, Acne, Alopecia, Bleeding Lesions, Change in Hair, Change in Nails, Change in Pigmentation, Changing Lesions, Dry Skin, Erythema, Furuncle, Hirsutism, Lesions, New Lesions, Non-Healing Lesions, Photosensitivity, Pruritus, Rash, Skin Pain, Skin Ulcer, Sores, Striae, Swelling , Unusual Bruising, Wounds, Jaundice, Other - Neurological Neurological: absent: As Per HPI, Abnormal Gait, Abnormal Hearing, Abnormal Movements, Abnormal Speech, Behavioral Changes, Burning Sensations, Confusion, Convulsions, Disequilibrium, Dizziness, Numbness, Focal Weakness, Frequent Falls , Headaches, Lack of Coordination, Loss of Vision, Memory Loss, Paresthesias, Radicular Pain, Restless Legs, Sensory Deficit, Syncope, Tingling, Tremor, Vertigo, Weakness, Other Visual Disturbances, Other - Psychiatric Psychiatric: absent: As Per HPI, Abnormal Sleep Pattern, Anhedonia, Anxiety, Auditory Hallucinations, Behavioral Changes, Change in Appetite, Change in Libido, Confusion, Depression, Difficulty Concentrating, Hallucinations, Homicidal Ideation, Hopelessness, Irritability, Memory Loss, Mood Swings, Panic Attacks, Paranoia, Suicidal Ideation, Visual Hallucinations, Tactile Hallucinations, Other - Endocrine Endocrine: absent: As Per HPI, Change in Body Appearance, Change in Libido, Cold Intolorance, Deepening of Voice, Excessive Sweating, Fatigue, Flushing, Heat Intolorance, Increase in Ring/Shoe/Hat Size, Palpitations, Polydipsia, Polyphagia, Polyuria, Other - Hematologic/Lymphatic Hematologic: absent: As Per HPI, Easy Bleeding, Easy Bruising, Lymphadenopathy, Other Past Patient History - Infectious Disease Hx of Infectious Diseases: None - Past Social History Smoking Status: Light Smoker < 10 Cigarettes Daily - CARDIAC Hx Hypercholesterolemia: Yes Hx Hypertension: Yes - PULMONARY Hx Respiratory Disorders: No - NEUROLOGICAL Hx Neurological Disorder: No - RENAL Hx Kidney Stones: Yes - ENDOCRINE/METABOLIC Hx Endocrine Disorders: No - HEMATOLOGICAL/ONCOLOGICAL Hx Blood Disorders: No - INTEGUMENTARY Hx Dermatological Problems: No - MUSCULOSKELETAL/RHEUMATOLOGICAL Hx Falls: No - GASTROINTESTINAL Hx Gastrointestinal Disorders: No - GENITOURINARY/GYNECOLOGICAL Hx Genitourinary Disorders: No - PSYCHIATRIC Hx Substance Use: No - SURGICAL HISTORY Hx Appendectomy: Yes - ANESTHESIA Hx Anesthesia: Yes Hx Anesthesia Reactions: No Hx Malignant Hyperthermia: No Has any member of the family had a problem w/ anesthesia?: No Meds Allergies/Adverse Reactions: Allergies Allergy/AdvReac Type Severity Reaction Status Date / Time bia Allergy Intermediate SWELLING Verified 04/21/17 05:23 strawberry Allergy Intermediate RASH Verified 04/21/17 05:23 - Medications Medications: Current Medications Albuterol/Ipratropium (Duoneb 3 Mg/0.5 Mg (3 Ml) Ud) 3 ml INH RQ6 [facility] Last Admin: 04/30/17 14:22 Dose: Not Given Calcium Acetate (Phoslo) 667 mg PO TID [facility] Hydromorphone HCl (Dilaudid) 0.5 mg IVP Q6H PRN PRN Reason: Pain, severe (8-10) Ceftriaxone Sodium 1 gm/ (Sodium Chloride) 100 mls @ 100 mls/hr IVPB DAILY [facility] Last Admin: 04/30/17 10:07 Dose: 100 mls/hr Acetaminophen (Ofirmev) 100 mls @ 100 mls/hr IV Q6H [facility] Stop: 05/01/17 14:01 Lorazepam (Ativan) 2 mg IVP Q6H PRN PRN Reason: Anxiety Last Admin: 04/30/17 14:29 Dose: 2 mg Methylprednisolone (Solu-Medrol) 40 mg IVP Q12H [facility] Pantoprazole Sodium (Protonix Ec Tab) 40 mg PO DAILY [facility] Last Admin: 04/30/17 11:11 Dose: Not Given Sodium Bicarbonate (Sodium Bicarbonate Tab) 1,300 mg PO QID [facility] Last Admin: 04/30/17 11:11 Dose: Not Given Physical Exam - Constitutional Appears: Non-toxic, No Acute Distress, Confused, Chronically Ill - Head Exam Head Exam: ATRAUMATIC, NORMAL INSPECTION, NORMOCEPHALIC - Eye Exam Eye Exam: EOMI, PERRL. absent: Scleral icterus - ENT Exam ENT Exam: Mucous Membranes Dry, Normal External Ear Exam - Neck Exam Neck exam: Negative for: Lymphadenopathy - Respiratory Exam Respiratory Exam: Decreased Breath Sounds, Prolonged Expiratory Phase, Rhonchi - Cardiovascular Exam Cardiovascular Exam: REGULAR RHYTHM, +S1, +S2 - GI/Abdominal Exam GI & Abdominal Exam: Diminished Bowel Sounds, Distended, Soft. absent: Guarding , Rebound, Rigid, Tenderness - Rectal Exam Rectal Exam: Deferred - Exam Exam: NORMAL INSPECTION - Extremities Exam Extremities exam: Negative for: pedal edema - Back Exam Back exam: absent: CVA tenderness (L), CVA tenderness (R) - Neurological Exam Neurological exam: Altered - Psychiatric Exam Psychiatric exam: Depressed - Skin Skin Exam: Dry Results - Vital Signs Recent Vital Signs: Last Vital Signs Temp 98.2 F 04/30/17 08:00 Pulse 74 04/30/17 10:34 Resp 16 04/30/17 10:34 BP 111/39 L 04/30/17 10:34 Pulse Ox 92 L 04/30/17 10:34 - Labs Result Diagrams: 04/30/17 06:17 04/30/17 06:13 Labs: Laboratory Results - last 24 hr 04/30/17 04/30/17 04/30/17 06:13 06:13 06:17 WBC 27.5 H RBC 3.51 L Hgb 10.2 L Hct 29.5 L MCV 84.2 MCH 29.0 MCHC 34.5 RDW 14.9 H Plt Count 457 H MPV 8.1 Neut % (Auto) 92.2 H Lymph % (Auto) 3.3 L [place] % (Auto) 4.5 Eos % (Auto) 0.0 Baso % (Auto) 0.0 Neut # (Auto) 25.4 H Lymph # (Auto) 0.9 L [place] # (Auto) 1.2 H Eos # (Auto) 0.0 Baso # (Auto) 0.0 Neutrophils % (Manual) 93 H Band Neutrophils % 3 H Lymphocytes % (Manual) 2 L Monocytes % (Manual) 2 Platelet Estimate Slightly increased H Poikilocytosis (manual Slight [place] Cells Slight PT INR APTT Puncture Site pCO2 pO2 HCO3 ABG pH ABG Total CO2 ABG O2 Saturation ABG Base Excess Pierre Test ABG Potassium A-a O2 Difference Respiratory Index Glucose Lactate Vent Mode Mechanical Rate FiO2 Tidal Volume PEEP Crit Value Called To Crit Value Called By Crit Value Read Back Blood Gas Notified Time Sodium 129 L Potassium 3.9 Chloride 99 Carbon Dioxide 17 L Anion Gap 17 BUN 55 H Creatinine 2.1 H Est GFR ( Amer) 28 Est GFR (Non-Af Amer) 23 POC Glucose (mg/dL) Random Glucose 130 H Calcium 7.8 L Phosphorus 6.8 H Magnesium 2.3 Total Bilirubin 0.3 AST 34 ALT 30 Alkaline Phosphatase 140 H D Total Protein 5.9 L Albumin 2.5 L Globulin 3.3 Albumin/Globulin Ratio 0.8 L Arterial Blood Potassium Complement C3 86.0 L Complement C4 < 8.0 L Blood Type Antibody Screen 04/30/17 04/30/17 04/30/17 08:41 10:30 10:35 WBC RBC Hgb Hct MCV MCH MCHC RDW Plt Count MPV Neut % (Auto) Lymph % (Auto) [place] % (Auto) Eos % (Auto) Baso % (Auto) Neut # (Auto) Lymph # (Auto) [place] # (Auto) Eos # (Auto) Baso # (Auto) Neutrophils % (Manual) Band Neutrophils % Lymphocytes % (Manual) Monocytes % (Manual) Platelet Estimate Poikilocytosis (manual [place] Cells PT 11.2 INR 1.0 APTT 24 Puncture Site pCO2 pO2 HCO3 ABG pH ABG Total CO2 ABG O2 Saturation ABG Base Excess Pierre Test ABG Potassium A-a O2 Difference Respiratory Index Glucose Lactate Vent Mode Mechanical Rate FiO2 Tidal Volume PEEP Crit Value Called To Crit Value Called By Crit Value Read Back Blood Gas Notified Time Sodium Potassium Chloride Carbon Dioxide Anion Gap BUN Creatinine Est GFR ( Amer) Est GFR (Non-Af Amer) POC Glucose (mg/dL) 122 H Random Glucose Calcium Phosphorus Magnesium Total Bilirubin AST ALT Alkaline Phosphatase Total Protein Albumin Globulin Albumin/Globulin Ratio Arterial Blood Potassium Complement C3 Complement C4 Blood Type O POSITIVE Antibody Screen Negative 04/30/17 14:03 WBC RBC Hgb Hct MCV MCH MCHC RDW Plt Count MPV Neut % (Auto) Lymph % (Auto) [place] % (Auto) Eos % (Auto) Baso % (Auto) Neut # (Auto) Lymph # (Auto) [place] # (Auto) Eos # (Auto) Baso # (Auto) Neutrophils % (Manual) Band Neutrophils % Lymphocytes % (Manual) Monocytes % (Manual) Platelet Estimate Poikilocytosis (manual Jose Cells PT INR APTT Puncture Site Lb pCO2 36 pO2 126 H HCO3 13.9 L ABG pH 7.18 L* ABG Total CO2 14.5 L ABG O2 Saturation 98.9 H ABG Base Excess -14.1 L Pierre Test Na ABG Potassium 3.9 A-a O2 Difference 542.0 Respiratory Index 4.3 Glucose 173 H Lactate 1.2 Vent Mode Prvc Mechanical Rate 18 FiO2 100.0 Tidal Volume 450 PEEP 5 Crit Value Called To Dr read Crit Value Called By Adela correa photo editor Crit Value Read Back Y Blood Gas Notified Time 1407 Sodium 134.0 Potassium Chloride 109.0 H Carbon Dioxide Anion Gap BUN Creatinine Est GFR ( Amer) Est GFR (Non-Af Amer) POC Glucose (mg/dL) Random Glucose Calcium Phosphorus Magnesium Total Bilirubin AST ALT Alkaline Phosphatase Total Protein Albumin Globulin Albumin/Globulin Ratio Arterial Blood Potassium 3.9 Complement C3 Complement C4 Blood Type Antibody Screen Assessment & Plan (1) Pelvic mass in female Status: Acute (2) Abdominal pain Status: Acute (3) Leukocytosis Status: Acute - Assessment and Plan (Free Text) Assessment: started on IV antibiotics post op await cultures cont iv antibiotics / wound care weaning as tolerated
--- NOTE | 2017-04-30 16:48 | CP.PCM.PN ---
Subjective - Date & Time of Evaluation Date of Evaluation: 04/30/17 Time of Evaluation: 16:45 - Subjective Subjective: post operative on ventilator still sedated Objective - Vital Signs/Intake and Output Vital Signs (last 24 hours): Temp Pulse Resp BP Pulse Ox 98.2 F 74 16 111/39 L 92 L 04/30/17 08:00 04/30/17 10:34 04/30/17 10:34 04/30/17 10:34 04/30/17 10:34 Intake and Output: 04/30/17 04/30/17 06:59 18:59 Intake Total 50 1000 Output Total 620 145 Balance -570 855 - Medications Medications: Current Medications Albuterol/Ipratropium (Duoneb 3 Mg/0.5 Mg (3 Ml) Ud) 3 ml INH RQ6 [facility] Last Admin: 04/30/17 14:22 Dose: Not Given Calcium Acetate (Phoslo) 667 mg PO TID [facility] Last Admin: 04/30/17 16:42 Dose: Not Given Hydromorphone HCl (Dilaudid) 0.5 mg IVP Q6H PRN PRN Reason: Pain, severe (8-10) Ceftriaxone Sodium 1 gm/ (Sodium Chloride) 100 mls @ 100 mls/hr IVPB DAILY [facility] Last Admin: 04/30/17 10:07 Dose: 100 mls/hr Acetaminophen (Ofirmev) 100 mls @ 100 mls/hr IV Q6H [facility] Stop: 05/01/17 14:01 Vancomycin/Sodium Chloride (Vancomycin 1 Gm/Ns 200 Ml) 1 gm in 200 mls @ 133 mls/hr IVPB ONCE ONE Stop: 04/30/17 18:30 Lorazepam (Ativan) 2 mg IVP Q6H PRN PRN Reason: Anxiety Last Admin: 04/30/17 14:29 Dose: 2 mg Methylprednisolone (Solu-Medrol) 40 mg IVP Q12H [facility] Pantoprazole Sodium (Protonix Ec Tab) 40 mg PO DAILY [facility] Last Admin: 04/30/17 11:11 Dose: Not Given Sodium Bicarbonate (Sodium Bicarbonate Tab) 1,300 mg PO QID [facility] Last Admin: 04/30/17 16:42 Dose: Not Given - Labs Labs: 04/30/17 06:17 04/30/17 06:13 PT 11.2 SECONDS (9.7-12.2) 04/30/17 08:41 INR 1.0 04/30/17 08:41 APTT 24 SECONDS (21-34) 04/30/17 08:41 - Head Exam Head Exam: ATRAUMATIC - ENT Exam ENT Exam: Mucous Membranes Dry - Neck Exam Neck Exam: Full ROM - Respiratory Exam Respiratory Exam: Decreased Breath Sounds - Cardiovascular Exam Cardiovascular Exam: REGULAR RHYTHM - GI/Abdominal Exam GI & Abdominal Exam: Normal Bowel Sounds Additional comments: s/p surgery dressing on - Rectal Exam Rectal Exam: NORMAL INSPECTION - Back Exam Back Exam: NORMAL INSPECTION - Neurological Exam Neurological Exam: Alert - Skin Skin Exam: Pallor Assessment and Plan - Assessment and Plan (Free Text) Assessment: s/p abdominal surgery removal of pelvic tumer on vent Plan: as per icu
[2017-04-30] MEDS ORDERED: Vancomycin 1 gm/NS 200 ml 1 GM/200 ML BAG IVPB ONE (17:00)
[2017-04-30 17:03] LABS: ARTERIAL BLOOD GAS HCO3 20.1 mmol/L (21-28); ARTERIAL BLOOD GAS HEMOGLOBIN 9.5 g/dL (11.7-17.4); ARTERIAL BLOOD GAS O2 SAT 97.3 % (95-98); ARTERIAL BLOOD GAS PCO2 33 mm/Hg (35-45); ARTERIAL BLOOD GAS PH 7.36 (7.35-7.45); ARTERIAL BLOOD GAS PO2 76 mm/Hg (80-100); ARTERIAL BLOOD GAS TCO2 19.6 mmol/L (22-28)
[2017-04-30] MEDS: Sodium Chloride 0.9% 1,000 ML IV SCH (17:17)
--- NOTE | 2017-04-30 18:15 | PN ---
DATE: 04/30/2017 LOCATION: ICU 7. SUBJECTIVE: This is a 66-year-old female seen and examined in rounds without reported significant changes, is still intubated and sedated. The entire chart is reviewed including, but not limited to the most recent lab and radiology study results, current and the previous medication list, current and the previous medical events. The patient for OR later today for diagnostic laparoscopy. PHYSICAL EXAMINATION: GENERAL: A 66-year-old female. VITAL SIGNS: Afebrile with pulse of 80, respiratory rate reported to 18 to 20, blood pressure 138/54. HEENT: Showed pale dry oral mucous membranes with bilateral icteric sclerae. LUNGS: Few scattered crepitations, decreased air entry at bases. HEART: Positive S1 and S2. ABDOMEN: Soft with slight generalized tenderness. No mass or organomegaly. No rebound tenderness or guarding. EXTREMITIES: With lower extremity mild edematous changes. No clubbing or cyanosis. NEUROLOGIC: No new reported neurological deficits, sensory or motor. LABORATORY DATA: Today's labs showed white blood cell of 27.5, hemoglobin 10.2, hematocrit 29.5 with thrombocytosis of 457, normal PT and PTT, low sodium 129, low CO2 content of 17, BUN of 55, creatinine 2.1, blood glucose level 122, calcium 7.8, phosphorus 6.8 with albumin 2.5, total protein 5.9. Official report of the CAT scan of chest as well as the chest x-ray is seen with evidence of pleural effusion. IMPRESSION: 1. Anemia, most likely secondary to chronic disease. 2. Re-exacerbation of peptic ulcer disease. 3. Diverticulosis by radiology study results. 4. Pleural effusion with possible pneumonia and respiratory insufficiency. 5. Acute renal insufficiency. 6. Long history of hypertension, renal stone, hyperlipidemia. 7. Reported history of colon polyps. 8. Metabolic acidosis secondary to infectious process. 9. Electrolyte imbalance with hyponatremia, hypokalemia, and hyperphosphatemia. 10. Hypoalbuminemia with malnutrition. SUGGESTIONS: 1. Continue current medicine. 2. Peripheral hyperalimentation. 3. No further aggressive GI workup in the meantime until the patient is more stable clinically, otherwise. Close observation to follow. Shantel Lakhani MD [facility] # [id number]
[2017-04-30 18:33] LABS: BASO # 0.1 K/uL (0.0-0.2); BASO % 0.3 % (0.0-2.0); HEMOGLOBIN 9.1 g/dL (11.0-16.0); LYMPH # 0.7 K/uL (1.0-4.3); LYMPH % 2.8 % (20.0-40.0); MEAN CELL VOLUME 83.7 fL (81.0-99.0); MEAN CORPUSCULAR HEMOGLOBIN 27.5 pg (27.0-31.0); MEAN CORPUSCULAR HGB CONC 32.8 g/dL (33.0-37.0); MEAN PLATELET VOLUME 7.7 fL (7.2-11.7); MONO # 1.2 K/uL (0.0-0.8); MONO % 4.8 % (0.0-10.0); NEUT # 23.6 K/uL (1.8-7.0); NEUT % 92.1 % (50.0-75.0); NRBC % 0.2 % (0.0-2.0); PLATELET COUNT 389 K/uL (130-400); RBC 3.31 Mil/uL (3.80-5.20); RED CELL DISTRIBUTION WIDTH 14.8 % (11.5-14.5); WHITE BLOOD COUNT 25.6 K/uL (4.8-10.8)
[2017-04-30 18:45] LABS: ALB/GLOB RATIO 0.9 (1.0-2.1); ALBUMIN 2.4 g/dL (3.5-5.0); CALCIUM 7.3 mg/dl (8.6-10.4)
[2017-04-30 19:09] LABS: PLATELET ESTIMATE NORMAL (NORMAL)
[2017-04-30 19:11] LABS: BANDS 2 % (0-2); LYMPHOCYTE 2 % (20-40); MONOCYTE 5 % (0-10); NEUTROPHIL 91 % (50-75); NUCLEATED RED BLOOD CELL 1 % (0-0); TOTAL CELLS COUNTED 100
[2017-04-30 19:12] LABS: MICROCYTOSIS SLIGHT; TEARDROP CELLS SLIGHT
[2017-04-30 19:13] LABS: HYPOCHROMIC SLIGHT; LARGE PLATELETS PRESENT
--- NOTE | 2017-04-30 19:17 | CARD ---
APPROVED REPORT EXAM: Two-dimensional and M-mode echocardiogram with Doppler and color Doppler. Other Information Quality : GoodRhythm : INDICATION LV Function:Systolic RISK FACTORS Hypertension Hyperlipidemia 2D DIMENSIONS IVSd0.6 (0.7-1.1cm)LVDd4.4 (3.9-5.9cm) PWd0.6 (0.7-1.1cm)LVDs3.0 (2.5-4.0cm) FS (%) 31.8 %LVEF (%)60.1 (>50%) M-Mode DIMENSIONS RVDd1.01 (2.1-3.2cm)Left Atrium (MM)3.37 (2.5-4.0cm) Aortic Root2.53 (2.2-3.7cm)Aortic Cusp Exc.1.92 (1.5-2.0cm) Mitral Valve MV E Fngeqvkr304.5cm/sMV A Aixgaido807.7cm/sE/A ratio1.5 TDI E/Lateral E'0.0E/Medial E'0.0 Tricuspid Valve TR Peak [id number]/sTR Peak [id number] LEFT VENTRICLE The left ventricle is normal size. There is normal left ventricular wall thickness. The left ventricular function is normal. The left ventricular ejection fraction is within the normal range. There is normal LV segmental wall motion. Elevated left atrial pressure by Tissue Doppler. RIGHT VENTRICLE The right ventricle is normal size. The right ventricular systolic function is normal. ATRIA The left atrium is moderately dilated. The right atrium size is normal. AORTIC VALVE The aortic valve is normal in structure. MITRAL VALVE The mitral valve is normal in structure. Mitral regurgitation is mild. TRICUSPID VALVE The tricuspid valve is normal in structure. There is mild tricuspid regurgitation. Right ventricular systolic pressure is estimated at 42 mmHg. There is mild pulmonary hypertension. GREAT VESSELS The aortic root is normal in size. The IVC is normal in size and collapses >50% with inspiration. PERICARDIAL EFFUSION There is a small circumferential pericardial effusion. No evidence of tamponade. <Conclusion> There is a small circumferential pericardial effusion. No evidence of tamponade. Normal bi - ventricular systolic function. Elevated left atrial pressure by Tissue Doppler. The left atrium is mildly to moderately dilated. Mild mitral regurgitation. There is mild tricuspid regurgitation. Right ventricular systolic pressure is estimated at 42 mmHg compatible with mild pulmonary hypertension.
--- NOTE | 2017-04-30 19:51 | PN ---
SUBJECTIVE: The patient underwent laparoscopy with left salpingo-oophorectomy. She did require IV labetalol for hypertension and currently she is in ICU. Heart rate is in the 50s, sinus rhythm. The patient is sedated, on the ventilator. No reported ventricular arrhythmia. PHYSICAL EXAMINATION: VITAL SIGNS: Blood pressure 111/89, heart rate 55, temperature this morning was 98.2. HEENT: Pale conjunctivae. CHEST: Bilateral rhonchi. HEART: S1 and S2 regular, no pericardial rub. EXTREMITIES: Trace leg edema. LABORATORY DATA: SMA-7 this morning, sodium 129, potassium 3.9, chloride 99, CO2 of 17, glucose 130, BUN 55, creatinine 2.1. CBC: WBC 27.5, hemoglobin 10.1, hematocrit 29.5, platelet count 257,000. Postoperative chest x-ray revealed right middle and lower lobe infiltrate with left pleural effusion. Bedside echo is being done and is consistent with [id number] circumferential pericardial effusion. ASSESSMENT: 1. Status post laparoscopy and left salpingo-oophorectomy. 2. Mild sinus bradycardia. 3. [id number] circumferential pericardial effusion. 4. Left pleural effusion. 5. Anemia. 6. Acute renal insufficiency. 7. Hyponatremia. RECOMMENDATIONS: Continue current IV Rocephin. Discontinue IV Lasix and Norvasc. Consider IV atropine 0.5 mg if heart rate above 85. I will obtain a 12-lead EKG now, and we will follow up the echocardiographic study once completed. John Mitchell MD
--- NOTE | 2017-04-30 23:52 | OP ---
DATE: 04/29/2017 PREOPERATIVE DIAGNOSES: Ischemic bowel, possible intraperitoneal abscess, and left adnexal mass. POSTOPERATIVE DIAGNOSES: Ischemic bowel, possible intraperitoneal abscess and left adnexal mass. PROCEDURES PERFORMED: Diagnostic laparoscopy and left salpingo-oophorectomy. FINDINGS: There is a considerable amount of bloody fluid located in the pelvis and in the gutters going up to the right perihepatic area. The sigmoid was normal. There is a strip of omentum wrapped around a piece of bowel but underneath the omentum, it was normal looking, no infection, no perforations noted. The uterus was normal in size, and there are no fibroids; however, the left adnexa shows a large ovarian mass with an area of what looks like a perforation with some clotted blood on the surface. The rest of the abdomen was characterized by adhesions involving the omentum in the right lower quadrant and also in the liver adherent to the anterior abdominal wall. There are no pus accumulations in the peritoneal cavity that was noted. DESCRIPTION OF PROCEDURE: Under general anesthesia, the patient was prepared and draped in the usual sterile fashion. CO2 was insufflated through a Veress needle inserted in the umbilicus. A small incision was made through which a 12-mm trocar was inserted. Under direct vision, the pelvis was inspected and above findings was demonstrated. A left lower quadrant 5-mm trocar was then inserted, and then another one was inserted on the left lower quadrant. Through these ports, the rest of the abdomen was inspected. No acute findings did explain the elevated WBC in this patient that was noted. The only problem was that there is a fluid that was slightly bloody, and there was a lesion in the left ovary. Because of the question of carcinoma, we elected to take the ovary out and then this was accomplished by taking the ligament with the aid of the LigaSure taking the tube and ovary out all in one piece. This was extracted through the umbilical port which was necessary to be enlarged because of the large size of the ovary. The area was irrigated with copious amount of saline solution, irrigating fluid was then suctioned out. The whole abdomen was inspected. No bleeding was noted. Therefore, CO2 was allowed to escape from the peritoneal cavity. The trocars were then removed. The abdomen was closed in a routine fashion. The estimated blood loss for the procedure probably approximates about 15 mL. No complications. Deangelo Hollingsworth MD
[2017-05-01] MEDS: Albuterol-Ipratrop 3 mg / 0.5 (3 ml) UD INH SCH ×4 (01:37→21:10)
[2017-05-01] MEDS: MethylPREDNISolone 40 mg Vial IVP SCH ×2 (01:47→13:24)
[2017-05-01] MEDS: Sodium Chloride 0.9% 1,000 ML IV SCH ×2 (03:33→18:39)
[2017-05-01 05:31] LABS: ABG ALLEN TEST POS; ARTERIAL BLOOD GAS HCO3 19.4 mmol/L (21-28); ARTERIAL BLOOD GAS HEMOGLOBIN 9.7 g/dL (11.7-17.4); ARTERIAL BLOOD GAS O2 SAT 98.2 % (95-98); ARTERIAL BLOOD GAS PCO2 30 mm/Hg (35-45); ARTERIAL BLOOD GAS PH 7.37 (7.35-7.45); ARTERIAL BLOOD GAS PO2 115 mm/Hg (80-100); ARTERIAL BLOOD GAS TCO2 18.2 mmol/L (22-28)
[2017-05-01 06:30] LABS: HEMOGLOBIN 9.5 g/dL (11.0-16.0); LYMPH # 0.8 K/uL (1.0-4.3); LYMPH % 3.4 % (20.0-40.0); MEAN CELL VOLUME 84.5 fL (81.0-99.0); MEAN CORPUSCULAR HEMOGLOBIN 27.9 pg (27.0-31.0); MONO # 0.9 K/uL (0.0-0.8); MONO % 3.8 % (0.0-10.0); NEUT % 92.8 % (50.0-75.0); NRBC % 0.2 % (0.0-2.0); PLATELET COUNT 422 K/uL (130-400); RBC 3.39 Mil/uL (3.80-5.20); RED CELL DISTRIBUTION WIDTH 14.8 % (11.5-14.5); WHITE BLOOD COUNT 22.7 K/uL (4.8-10.8)
[2017-05-01 06:33] LABS: PROTHROMBIN TIME 11.1 SECONDS (9.7-12.2)
[2017-05-01 06:40] LABS: ALB/GLOB RATIO 0.8 (1.0-2.1); ALBUMIN 2.5 g/dL (3.5-5.0); CALCIUM 7.2 mg/dl (8.6-10.4)
--- NOTE | 2017-05-01 07:34 | PN ---
DATE: 04/30/2017 The patient is improving. CAT scan of the chest shows [id number] pleural effusion, atelectasis, and IV hydration. Blood count decreased to 29,000 from 32,000. IMPRESSION: Urosepsis, renal failure. Patient get bed rest, supportive care. Avel Langley MD
--- NOTE | 2017-05-01 08:31 | RAD ---
HISTORY: fluid accumulation COMPARISON: 04/30/2017. FINDINGS: The endotracheal tube terminates 1.5 cm proximal to the karlos. LUNGS: There is worsening consolidation in the right upper lobe and also right lower lobe. There is a persistent left retrocardiac opacity. PLEURA: Suspect small pleural effusions, no pneumothorax apparent. CARDIOVASCULAR: There is mild cardiomegaly. OSSEOUS STRUCTURES: No significant abnormalities. VISUALIZED UPPER ABDOMEN: Normal. OTHER FINDINGS: None. IMPRESSION: Worsening multifocal consolidation, worse in the right lung which may represent pulmonary edema or multifocal pneumonia. No other significant interval change.
--- NOTE | 2017-05-01 09:17 | CP.PCM.PN ---
Subjective - Date & Time of Evaluation Date of Evaluation: 05/01/17 Time of Evaluation: 07:50 - Subjective Subjective: General surgery progress note for Dr. Nery Pulliam, PGY-1 Pt S & E at bedside. Pt intubated, sedated, arousable to verbal stimuli. Indicating that she would like the ET & Ramsey out. PRVC RR 18, TV 450, PEEP 5, FiO2 80%. Spoke with family at bedside yesterday after procedure regarding findings of operation. Objective - Vital Signs/Intake and Output Vital Signs (last 24 hours): Temp Pulse Resp BP Pulse Ox 98 F 63 19 90/48 L 95 05/01/17 04:00 05/01/17 07:02 05/01/17 07:02 05/01/17 07:02 05/01/17 07:02 Intake and Output: 05/01/17 05/01/17 06:59 18:59 Intake Total 1000 100 Output Total 250 20 Balance 750 80 - Medications Medications: Current Medications Albuterol/Ipratropium (Duoneb 3 Mg/0.5 Mg (3 Ml) Ud) 3 ml INH RQ6 [facility] Last Admin: 05/01/17 07:35 Dose: 3 ml Calcium Acetate (Phoslo) 667 mg PO TID ALEX Last Admin: 04/30/17 18:38 Dose: Not Given Hydromorphone HCl (Dilaudid) 0.5 mg IVP Q6H PRN PRN Reason: Pain, severe (8-10) Ceftriaxone Sodium 1 gm/ (Sodium Chloride) 100 mls @ 100 mls/hr IVPB DAILY [facility] Last Admin: 04/30/17 10:07 Dose: 100 mls/hr Acetaminophen (Ofirmev) 100 mls @ 100 mls/hr IV Q6H ALEX Stop: 05/01/17 14:01 Last Admin: 05/01/17 01:47 Dose: 100 mls/hr Sodium Chloride (Sodium Chloride 0.9%) 1,000 mls @ 100 mls/hr IV .Q10H ALEX Last Admin: 05/01/17 03:33 Dose: 100 mls/hr Lorazepam (Ativan) 2 mg IVP Q6H PRN PRN Reason: Anxiety Last Admin: 04/30/17 14:29 Dose: 2 mg Methylprednisolone (Solu-Medrol) 40 mg IVP Q12H [facility] Last Admin: 05/01/17 01:47 Dose: 40 mg Pantoprazole Sodium (Protonix Inj) 40 mg IVP DAILY [facility] Sodium Bicarbonate (Sodium Bicarbonate Tab) 1,300 mg PO QID [facility] Last Admin: 04/30/17 21:29 Dose: Not Given - Labs Labs: 05/01/17 06:17 05/01/17 06:16 PT 11.1 SECONDS (9.7-12.2) 05/01/17 06:17 INR 1.0 05/01/17 06:17 APTT 23 SECONDS (21-34) 05/01/17 06:17 - Constitutional Appears: Non-toxic, No Acute Distress - Head Exam Head Exam: ATRAUMATIC, NORMAL INSPECTION, NORMOCEPHALIC Additional comments: ET tube in place - Eye Exam Eye Exam: EOMI, Normal appearance - ENT Exam ENT Exam: Mucous Membranes Moist, Normal Exam - Neck Exam Neck Exam: Full ROM, Tenderness - Respiratory Exam Respiratory Exam: NORMAL BREATHING PATTERN (on mech vent) - Cardiovascular Exam Cardiovascular Exam: REGULAR RHYTHM, +S1, +S2 - GI/Abdominal Exam GI & Abdominal Exam: Distended (grossly ), Soft. absent: Firm, Guarding, Rigid , Tenderness Additional comments: surgical sites with dermabond in place, slight erythema at sites, no drainage or fluctuance - Extremities Exam Extremities Exam: Normal Inspection - Neurological Exam Neurological Exam: Awake (arousable to verbal stimuli, able to nod head to simple questions) - Psychiatric Exam Additional comments: intubated, unassessable - Skin Skin Exam: Dry, Intact, Normal Color, Warm Assessment and Plan - Assessment and Plan (Free Text) Assessment: 66F w/abdominal distention, pain POD#1/ s/p diagnostic laparascopy with Left salpino-oopherectomy, left intubated post op, requiring ICU care Plan: Pain control Cont IV Abx Cont PPI Start Reglan 1mg Q6H Monitor for bowel function OGT in place Extubate when meets criteria Further mgmt as per ICU & Primary teams DW attending Shasha, PGY-1
[2017-05-01 09:38] LABS: BANDS 5 % (0-2); LYMPHOCYTE 4 % (20-40); MONOCYTE 2 % (0-10); NEUTROPHIL 89 % (50-75); TOTAL CELLS COUNTED 100
[2017-05-01 09:40] LABS: PLATELET ESTIMATE SLIGHTLY INCREASED (NORMAL)
[2017-05-01 09:41] LABS: BURR CELLS SLIGHT
[2017-05-01] MEDS ORDERED: Sodium Chloride 0.9% 500 ML IV ONE (09:58)
--- NOTE | 2017-05-01 11:03 | VASCLAB ---
PROCEDURE: Lower Extremity Venous Duplex Exam. HISTORY: swelling PRIORS: None. TECHNIQUE: Bilateral common femoral, femoral, popliteal and posterior tibial, peroneal and great saphenous veins were evaluated. Flow was assessed with color Doppler, compressibility, assessment of phasic flow and augmentation response. Report prepared by KORY Zhu, RVT FINDINGS: RIGHT: 1. Common Femoral Vein: 1.1. Compressibility - Fully compressible: Thrombus - None : Flow - Phasic: Augmentation -Normal: Reflux - None. 2. Femoral Vein: 2.1. Compressibility - Fully compressible: Thrombus - None : Flow - Phasic: Augmentation -Normal: Reflux - None. 3. Popliteal Vein: 3.1. Compressibility - Fully compressible: Thrombus - None : Flow - Phasic: Augmentation -Normal: Reflux - None. 4. Posterior Tibial Vein: 4.1. Compressibility - Fully compressible: Thrombus - None: Flow - Phasic: Augmentation -Normal: Reflux - None. 5. Peroneal Vein: 5.1. Compressibility - Fully compressible: Thrombus - None: Flow - Phasic: Augmentation -Normal: Reflux - None. 6. Great Saphenous Vein: 6.1. Compressibility - Fully compressible: Thrombus - None: Flow - Phasic: Augmentation - Normal: Reflux - None. LEFT: 1. Common Femoral Vein: 1.1. Compressibility - Fully compressible: Thrombus - None: Flow - Phasic: Augmentation -Normal: Reflux - None. 2. Femoral Vein: 2.1. Compressibility - Fully compressible: Thrombus - None: Flow - Phasic: Augmentation -Normal: Reflux - None. 3. Popliteal Vein: 3.1. Compressibility - Fully compressible: Thrombus - None : Flow - Phasic: Augmentation -Normal: Reflux - None. 4. Posterior Tibial Vein: 4.1. Compressibility - Fully compressible: Thrombus - None: Flow - Phasic: Augmentation -Normal: Reflux - None. 5. Peroneal Vein: 5.1. Compressibility - Fully compressible: Thrombus - None: Flow - Phasic: Augmentation -Normal: Reflux - None. 6. Great Saphenous Vein: 6.1. Compressibility - Fully compressible: Thrombus - None: Flow - Phasic: Augmentation - Normal: Reflux - None. OTHER FINDINGS: Right: None significant. Left: None significant. IMPRESSION: Right: No evidence of deep or superficial vein thrombosis of the right lower extremity. Normal valve function noted of the right side. Left: No evidence of deep or superficial vein thrombosis of the left lower extremity. Normal valve function noted of the left side.
[2017-05-01] MEDS: Albumin Human 25% (12.5 gm/50 ml) IV SCH ×3 (11:07→17:36)
--- NOTE | 2017-05-01 11:54 | CP.CCUPN ---
<Alcon Cornejo R - Last Filed: 05/01/17 11:55> CCU Subjective - Physician Review Subjective (Free Text): Patient seen and examined. Intubated. Nods head when daughter prompts her for a question. ROS not obtainable. Urine culture positive for VRE - started on zyvox , cefepime and azithromycin. Gave 500ml NS bolus. OGT placed and started tubefeeds. Gave 3 doses of albumin. CCU Objective - Vital Signs / Intake & Output Intake and Output (Last 8hrs): Intake & Output 04/30/17 05/01/17 05/01/17 22:59 06:59 14:59 Intake Total 800 700 100 Output Total 215 170 20 Balance 585 530 80 Weight 145 lb 14.4 oz Intake: Intake, IV Amount 800 700 100 Right Forearm 800 700 100 Oral 0 Output: Urine 215 170 20 Urethral (Ramsey) 215 170 20 - Medications Active Medications: Active Medications Generic Name Dose Route Start Last Admin Trade Name Freq PRN Reason Stop Dose Admin Albumin Human 12.5 gm 05/01/17 10:00 05/01/17 11:07 Albumin Human 25% (12.5 Gm/50 Ml) IV 05/01/17 18:01 12.5 gm TID ALEX Administration Albuterol/Ipratropium 3 ml 04/27/17 20:00 05/01/17 07:35 Duoneb 3 Mg/0.5 Mg (3 Ml) Ud INH 3 ml RQ6 ALEX Administration Calcium Acetate 667 mg 04/30/17 14:00 05/01/17 10:58 Phoslo PO 667 mg TID ALEX Administration Heparin Sodium (Porcine) 5,000 units 05/01/17 14:00 Heparin SC Q8 ALEX Hydromorphone HCl 0.5 mg 04/30/17 14:10 Dilaudid IVP Q6H PRN Pain, severe (8-10) Acetaminophen 100 mls @ 100 mls/hr 04/30/17 14:00 05/01/17 11:10 Ofirmev IV 05/01/17 14:01 100 mls/hr Q6H ALEX Administration Sodium Chloride 1,000 mls @ 100 mls/hr 04/30/17 17:15 05/01/17 03:33 Sodium Chloride 0.9% IV 100 mls/hr .Q10H ALEX Administration Azithromycin 500 mg/ Sodium 250 mls @ 250 mls/hr 05/01/17 11:00 Chloride IVPB Q24H ALEX Linezolid 600 mg in 300 mls @ 300 mls/hr 05/01/17 12:00 Zyvox 600mg/300ml D5w IVPB Q12H ALEX Cefepime HCl 1 gm in 50 mls @ 100 mls/hr 05/01/17 11:30 Maxipime Iv 1 Gm Premix IVPB Q12H ALEX Lorazepam 2 mg 04/30/17 14:09 04/30/17 14:29 Ativan IVP 2 mg Q6H PRN Administration Anxiety Methylprednisolone 40 mg 04/30/17 14:15 05/01/17 01:47 Solu-Medrol IVP 40 mg Q12H ALEX Administration Pantoprazole Sodium 40 mg 05/01/17 10:00 05/01/17 11:06 Protonix Inj IVP 40 mg DAILY ALEX Administration Sodium Bicarbonate 1,300 mg 04/29/17 10:00 05/01/17 10:57 Sodium Bicarbonate Tab PO 1,300 mg QID ALEX Administration - Patient Studies Lab Studies: Microbiology Studies 04/28/17 09:23 Urine Culture - Final Urine,Clean Catch Vancomycin Resistant E.faecium 04/30/17 18:35 Gram Stain - Final Sputum 04/25/17 10:14 Blood Culture - Final Blood NO GROWTH AFTER 5 DAYS Gram Stain - Final TEST NOT PERFORMED 04/25/17 10:14 Blood Culture - Final Blood NO GROWTH AFTER 5 DAYS Gram Stain - Final TEST NOT PERFORMED Lab Studies 05/01/17 05/01/17 05/01/17 Range/Units 06:17 06:17 06:16 WBC 22.7 H (4.8-10.8) K/uL RBC 3.39 L (3.80-5.20) Mil/uL Hgb 9.5 L (11.0-16.0) g/dL Hct 28.6 L (34.0-47.0) % MCV 84.5 (81.0-99.0) fL MCH 27.9 (27.0-31.0) pg MCHC 33.0 (33.0-37.0) g/dL RDW 14.8 H (11.5-14.5) % Plt Count 422 H (130-400) K/uL MPV 8.0 (7.2-11.7) fL Neut % (Auto) 92.8 H (50.0-75.0) % Lymph % (Auto) 3.4 L (20.0-40.0) % Wharton % (Auto) 3.8 (0.0-10.0) % Eos % (Auto) 0.0 (0.0-4.0) % Baso % (Auto) 0.0 (0.0-2.0) % Neut # (Auto) 21.0 H (1.8-7.0) K/uL Lymph # (Auto) 0.8 L (1.0-4.3) K/uL Wharton # (Auto) 0.9 H (0.0-0.8) K/uL Eos # (Auto) 0.0 (0.0-0.7) K/uL Baso # (Auto) 0.0 (0.0-0.2) K/uL Neutrophils % (Manual) 89 H (50-75) % Band Neutrophils % 5 H (0-2) % Lymphocytes % (Manual) 4 L (20-40) % Monocytes % (Manual) 2 (0-10) % Nucleated RBC % (0-0) % Platelet Estimate Slightly increased H (NORMAL) Large Platelets Hypochromasia (manual) Microcytosis (manual) Tear Drop Cells Jose Cells Slight PT 11.1 (9.7-12.2) SECONDS INR 1.0 APTT 23 (21-34) SECONDS Puncture Site pCO2 (35-45) mm/Hg pO2 (80-100) mm/Hg HCO3 (21-28) mmol/L ABG pH (7.35-7.45) ABG Total CO2 (22-28) mmol/L ABG O2 Saturation (95-98) % ABG Base Excess (-2.0-3.0) mmol/L ABG Hemoglobin (11.7-17.4) g/dL ABG Carboxyhemoglobin (0.5-1.5) % POC ABG HHb (Measured) (0.0-5.0) % ABG Methemoglobin (0.0-3.0) % Pierre Test ABG Potassium (3.6-5.2) mmol/L A-a O2 Difference mm/Hg Respiratory Index Hgb O2 Saturation (95.0-98.0) % Sodium 131 L (132-148) mmol/l Chloride 101 (98-107) mmol/L Glucose (65-105) mg/dl Lactate (0.7-2.1) mmol/L Vent Mode Mechanical Rate FiO2 % Tidal Volume PEEP Crit Value Called To Crit Value Called By Crit Value Read Back Blood Gas Notified Time Potassium 4.1 (3.6-5.2) mmol/L Carbon Dioxide 17 L (22-30) mmol/L Anion Gap 17 (10-20) BUN 65 H (7-17) mg/dL Creatinine 2.0 H (0.7-1.2) mg/dL Est GFR ( Amer) 30 Est GFR (Non-Af Amer) 25 Random Glucose 98 (65-105) mg/dL Calcium 7.2 L (8.6-10.4) mg/dl Phosphorus 7.5 H (2.5-4.5) mg/dL Magnesium 2.4 H (1.6-2.3) mg/dL Total Bilirubin 0.4 (0.2-1.3) mg/dL AST 35 (14-36) U/L ALT 42 (9-52) U/L Alkaline Phosphatase 124 (38-126) U/L Total Protein 5.4 L (6.3-8.3) g/dL Albumin 2.5 L (3.5-5.0) g/dL Globulin 3.0 (2.2-3.9) gm/dL Albumin/Globulin Ratio 0.8 L (1.0-2.1) Arterial Blood Potassium (3.6-5.2) mmol/L 05/01/17 04/30/17 04/30/17 Range/Units 05:13 18:30 18:30 WBC 25.6 H (4.8-10.8) K/uL RBC 3.31 L (3.80-5.20) Mil/uL Hgb 9.1 L (11.0-16.0) g/dL Hct 27.7 L (34.0-47.0) % MCV 83.7 (81.0-99.0) fL MCH 27.5 (27.0-31.0) pg MCHC 32.8 L (33.0-37.0) g/dL RDW 14.8 H (11.5-14.5) % Plt Count 389 (130-400) K/uL MPV 7.7 (7.2-11.7) fL Neut % (Auto) 92.1 H (50.0-75.0) % Lymph % (Auto) 2.8 L (20.0-40.0) % Wharton % (Auto) 4.8 (0.0-10.0) % Eos % (Auto) 0.0 (0.0-4.0) % Baso % (Auto) 0.3 (0.0-2.0) % Neut # (Auto) 23.6 H (1.8-7.0) K/uL Lymph # (Auto) 0.7 L (1.0-4.3) K/uL Wharton # (Auto) 1.2 H (0.0-0.8) K/uL Eos # (Auto) 0.0 (0.0-0.7) K/uL Baso # (Auto) 0.1 (0.0-0.2) K/uL Neutrophils % (Manual) 91 H (50-75) % Band Neutrophils % 2 (0-2) % Lymphocytes % (Manual) 2 L (20-40) % Monocytes % (Manual) 5 (0-10) % Nucleated RBC % 1 H (0-0) % Platelet Estimate Normal (NORMAL) Large Platelets Present Hypochromasia (manual) Slight Microcytosis (manual) Slight Tear Drop Cells Slight [place] Cells PT (9.7-12.2) SECONDS INR APTT (21-34) SECONDS Puncture Site Rr pCO2 30 L (35-45) mm/Hg pO2 115 H (80-100) mm/Hg HCO3 19.4 L (21-28) mmol/L ABG pH 7.37 (7.35-7.45) ABG Total CO2 18.2 L (22-28) mmol/L ABG O2 Saturation 98.2 H (95-98) % ABG Base Excess -7.0 L (-2.0-3.0) mmol/L ABG Hemoglobin 9.7 L (11.7-17.4) g/dL ABG Carboxyhemoglobin 1.1 (0.5-1.5) % POC ABG HHb (Measured) 1.7 (0.0-5.0) % ABG Methemoglobin 2.0 (0.0-3.0) % Pierre Test Pos ABG Potassium (3.6-5.2) mmol/L A-a O2 Difference 418.0 mm/Hg Respiratory Index 3.6 Hgb O2 Saturation 95.2 (95.0-98.0) % Sodium 130 L (132-148) mmol/l Chloride 101 (98-107) mmol/L Glucose (65-105) mg/dl Lactate (0.7-2.1) mmol/L Vent Mode Prvc Mechanical Rate 18 FiO2 80.0 % Tidal Volume 450 PEEP 5 Crit Value Called To Crit Value Called By Crit Value Read Back Blood Gas Notified Time Potassium 4.0 (3.6-5.2) mmol/L Carbon Dioxide 17 L (22-30) mmol/L Anion Gap 16 (10-20) BUN 61 H (7-17) mg/dL Creatinine 2.1 H (0.7-1.2) mg/dL Est GFR ( Amer) 28 Est GFR (Non-Af Amer) 23 Random Glucose 113 H (65-105) mg/dL Calcium 7.3 L (8.6-10.4) mg/dl Phosphorus 6.9 H (2.5-4.5) mg/dL Magnesium 2.3 (1.6-2.3) mg/dL Total Bilirubin 0.1 L (0.2-1.3) mg/dL AST 38 H (14-36) U/L ALT 41 (9-52) U/L Alkaline Phosphatase 111 (38-126) U/L Total Protein 5.0 L (6.3-8.3) g/dL Albumin 2.4 L (3.5-5.0) g/dL Globulin 2.6 (2.2-3.9) gm/dL Albumin/Globulin Ratio 0.9 L (1.0-2.1) Arterial Blood Potassium (3.6-5.2) mmol/L 04/30/17 04/30/17 Range/Units 17:00 14:03 WBC (4.8-10.8) K/uL RBC (3.80-5.20) Mil/uL Hgb (11.0-16.0) g/dL Hct (34.0-47.0) % MCV (81.0-99.0) fL MCH (27.0-31.0) pg MCHC (33.0-37.0) g/dL RDW (11.5-14.5) % Plt Count (130-400) K/uL MPV (7.2-11.7) fL Neut % (Auto) (50.0-75.0) % Lymph % (Auto) (20.0-40.0) % Wharton % (Auto) (0.0-10.0) % Eos % (Auto) (0.0-4.0) % Baso % (Auto) (0.0-2.0) % Neut # (Auto) (1.8-7.0) K/uL Lymph # (Auto) (1.0-4.3) K/uL Wharton # (Auto) (0.0-0.8) K/uL Eos # (Auto) (0.0-0.7) K/uL Baso # (Auto) (0.0-0.2) K/uL Neutrophils % (Manual) (50-75) % Band Neutrophils % (0-2) % Lymphocytes % (Manual) (20-40) % Monocytes % (Manual) (0-10) % Nucleated RBC % (0-0) % Platelet Estimate (NORMAL) Large Platelets Hypochromasia (manual) Microcytosis (manual) Tear Drop Cells Jose Cells PT (9.7-12.2) SECONDS INR APTT (21-34) SECONDS Puncture Site Rba Lb pCO2 33 L 36 (35-45) mm/Hg pO2 76 L 126 H (80-100) mm/Hg HCO3 20.1 L 13.9 L (21-28) mmol/L ABG pH 7.36 7.18 L* (7.35-7.45) ABG Total CO2 19.6 L 14.5 L (22-28) mmol/L ABG O2 Saturation 97.3 98.9 H (95-98) % ABG Base Excess -6.1 L -14.1 L (-2.0-3.0) mmol/L ABG Hemoglobin 9.5 L (11.7-17.4) g/dL ABG Carboxyhemoglobin 1.6 H (0.5-1.5) % POC ABG HHb (Measured) 2.6 (0.0-5.0) % ABG Methemoglobin 1.4 (0.0-3.0) % Pierre Test Na Na ABG Potassium 3.9 (3.6-5.2) mmol/L A-a O2 Difference 453.0 542.0 mm/Hg Respiratory Index 6.0 4.3 Hgb O2 Saturation 94.3 L (95.0-98.0) % Sodium 134.0 (132-148) mmol/l Chloride 109.0 H (98-107) mmol/L Glucose 173 H (65-105) mg/dl Lactate 1.2 (0.7-2.1) mmol/L Vent Mode Prvc Prvc Mechanical Rate 18 18 FiO2 80.0 100.0 % Tidal Volume 450 450 PEEP 5 5 Crit Value Called To Dr read Crit Value Called By Adela correa automatic washer mechanic Crit Value Read Back Y Blood Gas Notified Time 1407 Potassium (3.6-5.2) mmol/L Carbon Dioxide (22-30) mmol/L Anion Gap (10-20) BUN (7-17) mg/dL Creatinine (0.7-1.2) mg/dL Est GFR ( Amer) Est GFR (Non-Af Amer) Random Glucose (65-105) mg/dL Calcium (8.6-10.4) mg/dl Phosphorus (2.5-4.5) mg/dL Magnesium (1.6-2.3) mg/dL Total Bilirubin (0.2-1.3) mg/dL AST (14-36) U/L ALT (9-52) U/L Alkaline Phosphatase (38-126) U/L Total Protein (6.3-8.3) g/dL Albumin (3.5-5.0) g/dL Globulin (2.2-3.9) gm/dL Albumin/Globulin Ratio (1.0-2.1) Arterial Blood Potassium 3.9 (3.6-5.2) mmol/L Laboratory Results - last 24 hr 04/30/17 04/30/17 04/30/17 14:03 17:00 18:30 WBC 25.6 H RBC 3.31 L Hgb 9.1 L Hct 27.7 L MCV 83.7 MCH 27.5 MCHC 32.8 L RDW 14.8 H Plt Count 389 MPV 7.7 Neut % (Auto) 92.1 H Lymph % (Auto) 2.8 L Wharton % (Auto) 4.8 Eos % (Auto) 0.0 Baso % (Auto) 0.3 Neut # (Auto) 23.6 H Lymph # (Auto) 0.7 L Wharton # (Auto) 1.2 H Eos # (Auto) 0.0 Baso # (Auto) 0.1 Neutrophils % (Manual) 91 H Band Neutrophils % 2 Lymphocytes % (Manual) 2 L Monocytes % (Manual) 5 Nucleated RBC % 1 H Platelet Estimate Normal Large Platelets Present Hypochromasia (manual) Slight Microcytosis (manual) Slight Tear Drop Cells Slight Jose Cells PT INR APTT Puncture Site Lb Rba pCO2 36 33 L pO2 126 H 76 L HCO3 13.9 L 20.1 L ABG pH 7.18 L* 7.36 ABG Total CO2 14.5 L 19.6 L ABG O2 Saturation 98.9 H 97.3 ABG Base Excess -14.1 L -6.1 L ABG Hemoglobin 9.5 L ABG Carboxyhemoglobin 1.6 H POC ABG HHb (Measured) 2.6 ABG Methemoglobin 1.4 Pierre Test Na Na ABG Potassium 3.9 A-a O2 Difference 542.0 453.0 Respiratory Index 4.3 6.0 Hgb O2 Saturation 94.3 L Sodium 134.0 Chloride 109.0 H Glucose 173 H Lactate 1.2 Vent Mode Prvc Prvc Mechanical Rate 18 18 FiO2 100.0 80.0 Tidal Volume 450 450 PEEP 5 5 Crit Value Called To Dr read Crit Value Called By Adela correa automatic washer mechanic Crit Value Read Back Y Blood Gas Notified Time 1407 Potassium Carbon Dioxide Anion Gap BUN Creatinine Est GFR ( Amer) Est GFR (Non-Af Amer) Random Glucose Calcium Phosphorus Magnesium Total Bilirubin AST ALT Alkaline Phosphatase Total Protein Albumin Globulin Albumin/Globulin Ratio Arterial Blood Potassium 3.9 04/30/17 05/01/17 05/01/17 18:30 05:13 06:16 WBC RBC Hgb Hct MCV MCH MCHC RDW Plt Count MPV Neut % (Auto) Lymph % (Auto) Wharton % (Auto) Eos % (Auto) Baso % (Auto) Neut # (Auto) Lymph # (Auto) Wharton # (Auto) Eos # (Auto) Baso # (Auto) Neutrophils % (Manual) Band Neutrophils % Lymphocytes % (Manual) Monocytes % (Manual) Nucleated RBC % Platelet Estimate Large Platelets Hypochromasia (manual) Microcytosis (manual) Tear Drop Cells Jose Cells PT INR APTT Puncture Site Rr pCO2 30 L pO2 115 H HCO3 19.4 L ABG pH 7.37 ABG Total CO2 18.2 L ABG O2 Saturation 98.2 H ABG Base Excess -7.0 L ABG Hemoglobin 9.7 L ABG Carboxyhemoglobin 1.1 POC ABG HHb (Measured) 1.7 ABG Methemoglobin 2.0 Pierre Test Pos ABG Potassium A-a O2 Difference 418.0 Respiratory Index 3.6 Hgb O2 Saturation 95.2 Sodium 130 L 131 L Chloride 101 101 Glucose Lactate Vent Mode Prvc Mechanical Rate 18 FiO2 80.0 Tidal Volume 450 PEEP 5 Crit Value Called To Crit Value Called By Crit Value Read Back Blood Gas Notified Time Potassium 4.0 4.1 Carbon Dioxide 17 L 17 L Anion Gap 16 17 BUN 61 H 65 H Creatinine 2.1 H 2.0 H Est GFR ( Amer) 28 30 Est GFR (Non-Af Amer) 23 25 Random Glucose 113 H 98 Calcium 7.3 L 7.2 L Phosphorus 6.9 H 7.5 H Magnesium 2.3 2.4 H Total Bilirubin 0.1 L 0.4 AST 38 H 35 ALT 41 42 Alkaline Phosphatase 111 124 Total Protein 5.0 L 5.4 L Albumin 2.4 L 2.5 L Globulin 2.6 3.0 Albumin/Globulin Ratio 0.9 L 0.8 L Arterial Blood Potassium 05/01/17 05/01/17 06:17 06:17 WBC 22.7 H RBC 3.39 L Hgb 9.5 L Hct 28.6 L MCV 84.5 MCH 27.9 MCHC 33.0 RDW 14.8 H Plt Count 422 H MPV 8.0 Neut % (Auto) 92.8 H Lymph % (Auto) 3.4 L Wharton % (Auto) 3.8 Eos % (Auto) 0.0 Baso % (Auto) 0.0 Neut # (Auto) 21.0 H Lymph # (Auto) 0.8 L Wharton # (Auto) 0.9 H Eos # (Auto) 0.0 Baso # (Auto) 0.0 Neutrophils % (Manual) 89 H Band Neutrophils % 5 H Lymphocytes % (Manual) 4 L Monocytes % (Manual) 2 Nucleated RBC % Platelet Estimate Slightly increased H Large Platelets Hypochromasia (manual) Microcytosis (manual) Tear Drop Cells [place] Cells Slight PT 11.1 INR 1.0 APTT 23 Puncture Site pCO2 pO2 HCO3 ABG pH ABG Total CO2 ABG O2 Saturation ABG Base Excess ABG Hemoglobin ABG Carboxyhemoglobin POC ABG HHb (Measured) ABG Methemoglobin Pierre Test ABG Potassium A-a O2 Difference Respiratory Index Hgb O2 Saturation Sodium Chloride Glucose Lactate Vent Mode Mechanical Rate FiO2 Tidal Volume PEEP Crit Value Called To Crit Value Called By Crit Value Read Back Blood Gas Notified Time Potassium Carbon Dioxide Anion Gap BUN Creatinine Est GFR ( Amer) Est GFR (Non-Af Amer) Random Glucose Calcium Phosphorus Magnesium Total Bilirubin AST ALT Alkaline Phosphatase Total Protein Albumin Globulin Albumin/Globulin Ratio Arterial Blood Potassium EKG/Cardiology Studies: Cardiology / EKG Studies 04/30/17 14:13 EKG [ELECTROCARDIOGRAM] Stat Comment: Mode Of Transportation: Reason For Exam: ekg post OR 04/30/17 14:46 EKG [ELECTROCARDIOGRAM] Routine Comment: Mode Of Transportation: Reason For Exam: postop Fingerstick Blood Sugar Results: 123 - Procedures Procedures (Free Text): - Constitutional Appears: intubated, altered, non-responsive to verbal stimuli - Head Exam Head Exam: ATRAUMATIC, NORMAL INSPECTION, NORMOCEPHALIC - ENT Exam ENT Exam: Mucous Membranes Moist, Normal Exam - Respiratory Exam Respiratory Exam: Rhonchi (mild), NORMAL BREATHING PATTERN. absent: Accessory Muscle Use, Respiratory Distress - Cardiovascular Exam Cardiovascular Exam: REGULAR RHYTHM - GI/Abdominal Exam GI & Abdominal Exam: Distended (mildly), Guarding (lower quadrants), Soft, Tenderness. absent: Firm, Rebound - Extremities Exam Extremities Exam: Full ROM, Normal Inspection - Neurological Exam Neurological Exam: Altered, not awake - Skin Skin Exam: Dry, Intact, Normal Color, Warm Review of Systems - Review of Systems Systems not reviewed;Unavailable: Altered Mental Status Assessment/Plan - Assessment and Plan (Free Text) Assessment: 66F w/ascites as seen on CT of abdomen, pelvic mass: neuro: Dilaudid 0.5mg IV Q4H PRN for pain control ID: Leukocytosis, UTI, right sided pneumonia indicative of aspiration pneumonia Infectious Disease, Dr Grant on board General Surgery Dr Hollingsworth on board POD#1/ s/p diagnostic laparascopy with Left salpino-oopherectomy with Dr Hollingsworth 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 Azithromycin 500mg IV QD started 05/01/17 Zyvox 600mg IV BID started 05/01/17 Cefepime 1g IV BID started 05/01/17 Follow up mycoplasma and legionella screens and procalcitonin level Albumin 15% 12.5gm x 3 given on 05/01/17 Cardio: hx of diastolic heart failure, HTN, HLD End Maker Dr Mitchell on board Norvasc 10mg PO QD Lasix 80mg IVP BID hydralazine 50mg PO BID Hydralazine 25mg PO Q4H PRN EKG and Echo ordered before OR Patient not on ACEI/ARB due to TONA Pulm: hx of COPD, wheezing resolved, possible L PNA/effuision Training Specialist Dr Langley on board duoneb 3ml INH RQ6 solumedrol 40mg IVP Q8 GI: Cecal thickening on CT scan GI Dr Butt on board 1 tab PO TID Bentyl 10mg PO BID place OGT - start tube feeds Renal: TONA, CKD, s/p left nephrectomy for stones Canal Lock Tender Chief Operator Dr Andrade on board Nephrotic syndrome with 3.5 gram proteinuria amd microscopic hematuria. differential include (MPGN due to Hep C, FSGS due to solitary kidney, Membranous nephropathy possibly due to undiagnosed malignancy) will check anca/dna ab as proteinuria and microscopic hematuria on UA Sodium Bicarb 1,300 mg PO QID Phoslo 667mg PO TID 500mL fluid challenge Electrolytes: hyponatremia Canal Lock Tender Chief Operator Dr Andrade on board Hyponatremia likely multi-factorial: thiazide diuretics, hypotonic fluids ? Increased stimulation of ADH from pelvic pathology concerning for neoplasm [facility] former brace end: adnexal mass SCREENER AND BLENDER Dr Barajas consulted - signed off POD#1/ s/p diagnostic laparascopy with Left salpino-oopherectomy with Dr Hollingsworth PPx: Protonix 40mg PO QD Heparin 5,000 units <Jesse Roa S - Last Filed: 05/01/17 17:38> CCU Objective - Vital Signs / Intake & Output Vital Signs (Last 4 hours): Vital Signs Pulse Resp BP Pulse Ox 05/01/17 15:02 62 20 135/52 L 93 L 05/01/17 15:00 78 23 93 L 05/01/17 14:02 132/50 L Intake and Output (Last 8hrs): Intake & Output 05/01/17 05/01/17 05/01/17 06:59 14:59 22:59 Intake Total 700 2099 100 Output Total 170 280 40 Balance 530 1819 60 Weight 145 lb 14.4 oz Intake: Intake, IV Amount 700 2099 100 Right Forearm 700 2099 100 Output: Urine 170 280 40 Urethral (Ramsey) 170 280 40 - Medications Active Medications: Active Medications Generic Name Dose Route Start Last Admin Trade Name Freq PRN Reason Stop Dose Admin Albumin Human 12.5 gm 05/01/17 10:00 05/01/17 13:22 Albumin Human 25% (12.5 Gm/50 Ml) IV 05/01/17 18:01 12.5 gm TID ALEX Administration Albuterol/Ipratropium 3 ml 04/27/17 20:00 05/01/17 13:47 Duoneb 3 Mg/0.5 Mg (3 Ml) Ud INH 3 ml RQ6 ALEX Administration Calcium Acetate 667 mg 04/30/17 14:00 05/01/17 13:24 Phoslo PO 667 mg TID ALEX Administration Heparin Sodium (Porcine) 5,000 units 05/01/17 14:00 05/01/17 13:23 Heparin SC 5,000 units Q8 ALEX Administration Hydromorphone HCl 0.5 mg 04/30/17 14:10 Dilaudid IVP Q6H PRN Pain, severe (8-10) Sodium Chloride 1,000 mls @ 100 mls/hr 04/30/17 17:15 05/01/17 03:33 Sodium Chloride 0.9% IV 100 mls/hr .Q10H ALEX Administration Azithromycin 500 mg/ Sodium 250 mls @ 250 mls/hr 05/01/17 11:00 05/01/17 13: 24 Chloride IVPB 250 mls/hr Q24H ALEX Administration Linezolid 600 mg in 300 mls @ 300 mls/hr 05/01/17 12:00 05/01/17 12:01 Zyvox 600mg/300ml D5w IVPB 300 mls/hr Q12H ALEX Administration Cefepime HCl 1 gm in 50 mls @ 100 mls/hr 05/01/17 11:30 05/01/17 11:57 Maxipime Iv 1 Gm Premix IVPB 100 mls/hr Q12H ALEX Administration Lorazepam 2 mg 04/30/17 14:09 04/30/17 14:29 Ativan IVP 2 mg Q6H PRN Administration Anxiety Methylprednisolone 40 mg 04/30/17 14:15 05/01/17 13:24 Solu-Medrol IVP 40 mg Q12H ALEX Administration Pantoprazole Sodium 40 mg 05/01/17 10:00 05/01/17 11:06 Protonix Inj IVP 40 mg DAILY ALEX Administration Sodium Bicarbonate 1,300 mg 04/29/17 10:00 05/01/17 13:24 Sodium Bicarbonate Tab PO 1,300 mg QID ALEX Administration Vitamin A 1 ea 05/01/17 12:38 Vitamin A & D Oint Ud Foilpak TOP Q4 PRN dry lips - Patient Studies Lab Studies: Microbiology Studies 04/28/17 09:23 Urine Culture - Final Urine,Clean Catch Vancomycin Resistant E.faecium 04/30/17 18:35 Gram Stain - Final Sputum Lab Studies 05/01/17 05/01/17 05/01/17 Range/Units 11:08 10:07 06:17 WBC 22.7 H (4.8-10.8) K/uL RBC 3.39 L (3.80-5.20) Mil/uL Hgb 9.5 L (11.0-16.0) g/dL Hct 28.6 L (34.0-47.0) % MCV 84.5 (81.0-99.0) fL MCH 27.9 (27.0-31.0) pg MCHC 33.0 (33.0-37.0) g/dL RDW 14.8 H (11.5-14.5) % Plt Count 422 H (130-400) K/uL MPV 8.0 (7.2-11.7) fL Neut % (Auto) 92.8 H (50.0-75.0) % Lymph % (Auto) 3.4 L (20.0-40.0) % Wharton % (Auto) 3.8 (0.0-10.0) % Eos % (Auto) 0.0 (0.0-4.0) % Baso % (Auto) 0.0 (0.0-2.0) % Neut # (Auto) 21.0 H (1.8-7.0) K/uL Lymph # (Auto) 0.8 L (1.0-4.3) K/uL Wharton # (Auto) 0.9 H (0.0-0.8) K/uL Eos # (Auto) 0.0 (0.0-0.7) K/uL Baso # (Auto) 0.0 (0.0-0.2) K/uL Neutrophils % (Manual) 89 H (50-75) % Band Neutrophils % 5 H (0-2) % Lymphocytes % (Manual) 4 L (20-40) % Monocytes % (Manual) 2 (0-10) % Nucleated RBC % (0-0) % Platelet Estimate Slightly increased H (NORMAL) Large Platelets Hypochromasia (manual) Microcytosis (manual) Tear Drop Cells [place] Cells Slight PT (9.7-12.2) SECONDS INR APTT (21-34) SECONDS Puncture Site pCO2 (35-45) mm/Hg pO2 (80-100) mm/Hg HCO3 (21-28) mmol/L ABG pH (7.35-7.45) ABG Total CO2 (22-28) mmol/L ABG O2 Saturation (95-98) % ABG Base Excess (-2.0-3.0) mmol/L ABG Hemoglobin (11.7-17.4) g/dL ABG Carboxyhemoglobin (0.5-1.5) % POC ABG HHb (Measured) (0.0-5.0) % ABG Methemoglobin (0.0-3.0) % Pierre Test A-a O2 Difference mm/Hg Respiratory Index Hgb O2 Saturation (95.0-98.0) % Vent Mode Mechanical Rate FiO2 % Tidal Volume PEEP Sodium (132-148) mmol/L Potassium (3.6-5.2) mmol/L Chloride (98-107) mmol/L Carbon Dioxide (22-30) mmol/L Anion Gap (10-20) BUN (7-17) mg/dL Creatinine (0.7-1.2) mg/dL Est GFR ( Amer) Est GFR (Non-Af Amer) Random Glucose (65-105) mg/dL Calcium (8.6-10.4) mg/dl Phosphorus (2.5-4.5) mg/dL Magnesium (1.6-2.3) mg/dL Total Bilirubin (0.2-1.3) mg/dL AST (14-36) U/L ALT (9-52) U/L Alkaline Phosphatase (38-126) U/L Total Protein (6.3-8.3) g/dL Albumin (3.5-5.0) g/dL Globulin (2.2-3.9) gm/dL Albumin/Globulin Ratio (1.0-2.1) Procalcitonin 3.28 H (0.19-0.49) NG/ML SHORTY Nuclear Membr Pat (Negative) Double Strand DNA Ab IU/mL Ur L.pneumophila Ag Negative (NEGATIVE) 05/01/17 05/01/17 05/01/17 Range/Units 06:17 06:16 05:13 WBC (4.8-10.8) K/uL RBC (3.80-5.20) Mil/uL Hgb (11.0-16.0) g/dL Hct (34.0-47.0) % MCV (81.0-99.0) fL MCH (27.0-31.0) pg MCHC (33.0-37.0) g/dL RDW (11.5-14.5) % Plt Count (130-400) K/uL MPV (7.2-11.7) fL Neut % (Auto) (50.0-75.0) % Lymph % (Auto) (20.0-40.0) % [place] % (Auto) (0.0-10.0) % Eos % (Auto) (0.0-4.0) % Baso % (Auto) (0.0-2.0) % Neut # (Auto) (1.8-7.0) K/uL Lymph # (Auto) (1.0-4.3) K/uL [place] # (Auto) (0.0-0.8) K/uL Eos # (Auto) (0.0-0.7) K/uL Baso # (Auto) (0.0-0.2) K/uL Neutrophils % (Manual) (50-75) % Band Neutrophils % (0-2) % Lymphocytes % (Manual) (20-40) % Monocytes % (Manual) (0-10) % Nucleated RBC % (0-0) % Platelet Estimate (NORMAL) Large Platelets Hypochromasia (manual) Microcytosis (manual) Tear Drop Cells [place] Cells PT 11.1 (9.7-12.2) SECONDS INR 1.0 APTT 23 (21-34) SECONDS Puncture Site Rr pCO2 30 L (35-45) mm/Hg pO2 115 H (80-100) mm/Hg HCO3 19.4 L (21-28) mmol/L ABG pH 7.37 (7.35-7.45) ABG Total CO2 18.2 L (22-28) mmol/L ABG O2 Saturation 98.2 H (95-98) % ABG Base Excess -7.0 L (-2.0-3.0) mmol/L ABG Hemoglobin 9.7 L (11.7-17.4) g/dL ABG Carboxyhemoglobin 1.1 (0.5-1.5) % POC ABG HHb (Measured) 1.7 (0.0-5.0) % ABG Methemoglobin 2.0 (0.0-3.0) % Pierre Test Pos A-a O2 Difference 418.0 mm/Hg Respiratory Index 3.6 Hgb O2 Saturation 95.2 (95.0-98.0) % Vent Mode Prvc Mechanical Rate 18 FiO2 80.0 % Tidal Volume 450 PEEP 5 Sodium 131 L (132-148) mmol/L Potassium 4.1 (3.6-5.2) mmol/L Chloride 101 (98-107) mmol/L Carbon Dioxide 17 L (22-30) mmol/L Anion Gap 17 (10-20) BUN 65 H (7-17) mg/dL Creatinine 2.0 H (0.7-1.2) mg/dL Est GFR ( Amer) 30 Est GFR (Non-Af Amer) 25 Random Glucose 98 (65-105) mg/dL Calcium 7.2 L (8.6-10.4) mg/dl Phosphorus 7.5 H (2.5-4.5) mg/dL Magnesium 2.4 H (1.6-2.3) mg/dL Total Bilirubin 0.4 (0.2-1.3) mg/dL AST 35 (14-36) U/L ALT 42 (9-52) U/L Alkaline Phosphatase 124 (38-126) U/L Total Protein 5.4 L (6.3-8.3) g/dL Albumin 2.5 L (3.5-5.0) g/dL Globulin 3.0 (2.2-3.9) gm/dL Albumin/Globulin Ratio 0.8 L (1.0-2.1) Procalcitonin (0.19-0.49) NG/ML SHORTY Nuclear Membr Pat (Negative) Double Strand DNA Ab IU/mL Ur L.pneumophila Ag (NEGATIVE) 04/30/17 04/30/17 04/30/17 Range/Units 18:30 18:30 07:43 WBC 25.6 H (4.8-10.8) K/uL RBC 3.31 L (3.80-5.20) Mil/uL Hgb 9.1 L (11.0-16.0) g/dL Hct 27.7 L (34.0-47.0) % MCV 83.7 (81.0-99.0) fL MCH 27.5 (27.0-31.0) pg MCHC 32.8 L (33.0-37.0) g/dL RDW 14.8 H (11.5-14.5) % Plt Count 389 (130-400) K/uL MPV 7.7 (7.2-11.7) fL Neut % (Auto) 92.1 H (50.0-75.0) % Lymph % (Auto) 2.8 L (20.0-40.0) % Wharton % (Auto) 4.8 (0.0-10.0) % Eos % (Auto) 0.0 (0.0-4.0) % Baso % (Auto) 0.3 (0.0-2.0) % Neut # (Auto) 23.6 H (1.8-7.0) K/uL Lymph # (Auto) 0.7 L (1.0-4.3) K/uL Wharton # (Auto) 1.2 H (0.0-0.8) K/uL Eos # (Auto) 0.0 (0.0-0.7) K/uL Baso # (Auto) 0.1 (0.0-0.2) K/uL Neutrophils % (Manual) 91 H (50-75) % Band Neutrophils % 2 (0-2) % Lymphocytes % (Manual) 2 L (20-40) % Monocytes % (Manual) 5 (0-10) % Nucleated RBC % 1 H (0-0) % Platelet Estimate Normal (NORMAL) Large Platelets Present Hypochromasia (manual) Slight Microcytosis (manual) Slight Tear Drop Cells Slight Jose Cells PT (9.7-12.2) SECONDS INR APTT (21-34) SECONDS Puncture Site pCO2 (35-45) mm/Hg pO2 (80-100) mm/Hg HCO3 (21-28) mmol/L ABG pH (7.35-7.45) ABG Total CO2 (22-28) mmol/L ABG O2 Saturation (95-98) % ABG Base Excess (-2.0-3.0) mmol/L ABG Hemoglobin (11.7-17.4) g/dL ABG Carboxyhemoglobin (0.5-1.5) % POC ABG HHb (Measured) (0.0-5.0) % ABG Methemoglobin (0.0-3.0) % Pierre Test A-a O2 Difference mm/Hg Respiratory Index Hgb O2 Saturation (95.0-98.0) % Vent Mode Mechanical Rate FiO2 % Tidal Volume PEEP Sodium 130 L (132-148) mmol/L Potassium 4.0 (3.6-5.2) mmol/L Chloride 101 (98-107) mmol/L Carbon Dioxide 17 L (22-30) mmol/L Anion Gap 16 (10-20) BUN 61 H (7-17) mg/dL Creatinine 2.1 H (0.7-1.2) mg/dL Est GFR ( Amer) 28 Est GFR (Non-Af Amer) 23 Random Glucose 113 H (65-105) mg/dL Calcium 7.3 L (8.6-10.4) mg/dl Phosphorus 6.9 H (2.5-4.5) mg/dL Magnesium 2.3 (1.6-2.3) mg/dL Total Bilirubin 0.1 L (0.2-1.3) mg/dL AST 38 H (14-36) U/L ALT 41 (9-52) U/L Alkaline Phosphatase 111 (38-126) U/L Total Protein 5.0 L (6.3-8.3) g/dL Albumin 2.4 L (3.5-5.0) g/dL Globulin 2.6 (2.2-3.9) gm/dL Albumin/Globulin Ratio 0.9 L (1.0-2.1) Procalcitonin (0.19-0.49) NG/ML SHORTY Nuclear Membr Pat Negative (Negative) Double Strand DNA Ab <1 IU/mL Ur L.pneumophila Ag (NEGATIVE) Laboratory Results - last 24 hr 04/30/17 04/30/17 04/30/17 07:43 18:30 18:30 WBC 25.6 H RBC 3.31 L Hgb 9.1 L Hct 27.7 L MCV 83.7 MCH 27.5 MCHC 32.8 L RDW 14.8 H Plt Count 389 MPV 7.7 Neut % (Auto) 92.1 H Lymph % (Auto) 2.8 L Wharton % (Auto) 4.8 Eos % (Auto) 0.0 Baso % (Auto) 0.3 Neut # (Auto) 23.6 H Lymph # (Auto) 0.7 L Wharton # (Auto) 1.2 H Eos # (Auto) 0.0 Baso # (Auto) 0.1 Neutrophils % (Manual) 91 H Band Neutrophils % 2 Lymphocytes % (Manual) 2 L Monocytes % (Manual) 5 Nucleated RBC % 1 H Platelet Estimate Normal Large Platelets Present Hypochromasia (manual) Slight Microcytosis (manual) Slight Tear Drop Cells Slight [place] Cells PT INR APTT Puncture Site pCO2 pO2 HCO3 ABG pH ABG Total CO2 ABG O2 Saturation ABG Base Excess ABG Hemoglobin ABG Carboxyhemoglobin POC ABG HHb (Measured) ABG Methemoglobin Pierre Test A-a O2 Difference Respiratory Index Hgb O2 Saturation Vent Mode Mechanical Rate FiO2 Tidal Volume PEEP Sodium 130 L Potassium 4.0 Chloride 101 Carbon Dioxide 17 L Anion Gap 16 BUN 61 H Creatinine 2.1 H Est GFR ( Amer) 28 Est GFR (Non-Af Amer) 23 Random Glucose 113 H Calcium 7.3 L Phosphorus 6.9 H Magnesium 2.3 Total Bilirubin 0.1 L AST 38 H ALT 41 Alkaline Phosphatase 111 Total Protein 5.0 L Albumin 2.4 L Globulin 2.6 Albumin/Globulin Ratio 0.9 L Procalcitonin SHORTY Nuclear Membr Pat Negative Double Strand DNA Ab <1 Ur L.pneumophila Ag 05/01/17 05/01/17 05/01/17 05:13 06:16 06:17 WBC RBC Hgb Hct MCV MCH MCHC RDW Plt Count MPV Neut % (Auto) Lymph % (Auto) Wharton % (Auto) Eos % (Auto) Baso % (Auto) Neut # (Auto) Lymph # (Auto) Wharton # (Auto) Eos # (Auto) Baso # (Auto) Neutrophils % (Manual) Band Neutrophils % Lymphocytes % (Manual) Monocytes % (Manual) Nucleated RBC % Platelet Estimate Large Platelets Hypochromasia (manual) Microcytosis (manual) Tear Drop Cells Jose Cells PT 11.1 INR 1.0 APTT 23 Puncture Site Rr pCO2 30 L pO2 115 H HCO3 19.4 L ABG pH 7.37 ABG Total CO2 18.2 L ABG O2 Saturation 98.2 H ABG Base Excess -7.0 L ABG Hemoglobin 9.7 L ABG Carboxyhemoglobin 1.1 POC ABG HHb (Measured) 1.7 ABG Methemoglobin 2.0 Pierre Test Pos A-a O2 Difference 418.0 Respiratory Index 3.6 Hgb O2 Saturation 95.2 Vent Mode Prvc Mechanical Rate 18 FiO2 80.0 Tidal Volume 450 PEEP 5 Sodium 131 L Potassium 4.1 Chloride 101 Carbon Dioxide 17 L Anion Gap 17 BUN 65 H Creatinine 2.0 H Est GFR ( Amer) 30 Est GFR (Non-Af Amer) 25 Random Glucose 98 Calcium 7.2 L Phosphorus 7.5 H Magnesium 2.4 H Total Bilirubin 0.4 AST 35 ALT 42 Alkaline Phosphatase 124 Total Protein 5.4 L Albumin 2.5 L Globulin 3.0 Albumin/Globulin Ratio 0.8 L Procalcitonin SHORTY Nuclear Membr Pat Double Strand DNA Ab Ur L.pneumophila Ag 05/01/17 05/01/17 05/01/17 06:17 10:07 11:08 WBC 22.7 H RBC 3.39 L Hgb 9.5 L Hct 28.6 L MCV 84.5 MCH 27.9 MCHC 33.0 RDW 14.8 H Plt Count 422 H MPV 8.0 Neut % (Auto) 92.8 H Lymph % (Auto) 3.4 L Wharton % (Auto) 3.8 Eos % (Auto) 0.0 Baso % (Auto) 0.0 Neut # (Auto) 21.0 H Lymph # (Auto) 0.8 L Wharton # (Auto) 0.9 H Eos # (Auto) 0.0 Baso # (Auto) 0.0 Neutrophils % (Manual) 89 H Band Neutrophils % 5 H Lymphocytes % (Manual) 4 L Monocytes % (Manual) 2 Nucleated RBC % Platelet Estimate Slightly increased H Large Platelets Hypochromasia (manual) Microcytosis (manual) Tear Drop Cells [place] Cells Slight PT INR APTT Puncture Site pCO2 pO2 HCO3 ABG pH ABG Total CO2 ABG O2 Saturation ABG Base Excess ABG Hemoglobin ABG Carboxyhemoglobin POC ABG HHb (Measured) ABG Methemoglobin Pierre Test A-a O2 Difference Respiratory Index Hgb O2 Saturation Vent Mode Mechanical Rate FiO2 Tidal Volume PEEP Sodium Potassium Chloride Carbon Dioxide Anion Gap BUN Creatinine Est GFR ( Amer) Est GFR (Non-Af Amer) Random Glucose Calcium Phosphorus Magnesium Total Bilirubin AST ALT Alkaline Phosphatase Total Protein Albumin Globulin Albumin/Globulin Ratio Procalcitonin 3.28 H SHORTY Nuclear Membr Pat Double Strand DNA Ab Ur L.pneumophila Ag Negative Attending/Attestation - Attestation I have personally seen and examined this patient.: Yes I have fully participated in the care of the patient.: Yes I have reviewed all pertinent clinical information: Yes Notes (Text): 05/01/17 17:37 Patient seen and examined in the intensive care unit.discussed with the house staff in the morning around Remained intubated on ventilatory support requiring high FiO2 with saturation in the mid 90s Right lung infiltrate noted possible aspiration during surgery On IV antibiotics as per infectious disease Urinary tract infection Family refused triple lumen catheter insertion Continue present treatment
[2017-05-01] MEDS: Cefepime IV 1 gm in Dextrose 1 GM/50 ML BAG IVPB SCH ×2 (11:57→22:40)
--- NOTE | 2017-05-01 11:57 | CP.PCM.PN ---
Subjective - Date & Time of Evaluation Date of Evaluation: 05/01/17 Time of Evaluation: 09:00 - Subjective Subjective: events noted + VRE urine Zyvox added await sputum c/s cefepime added rocephin d/c Objective - Vital Signs/Intake and Output Vital Signs (last 24 hours): Temp Pulse Resp BP Pulse Ox 98 F 63 19 90/48 L 95 05/01/17 04:00 05/01/17 07:02 05/01/17 07:02 05/01/17 07:02 05/01/17 07:02 Intake and Output: 05/01/17 05/01/17 06:59 18:59 Intake Total 1000 100 Output Total 250 20 Balance 750 80 - Medications Medications: Current Medications Albumin Human (Albumin Human 25% (12.5 Gm/50 Ml)) 12.5 gm IV TID [facility] Stop: 05/01/17 18:01 Last Admin: 05/01/17 11:07 Dose: 12.5 gm Albuterol/Ipratropium (Duoneb 3 Mg/0.5 Mg (3 Ml) Ud) 3 ml INH RQ6 [facility] Last Admin: 05/01/17 07:35 Dose: 3 ml Calcium Acetate (Phoslo) 667 mg PO TID [facility] Last Admin: 05/01/17 10:58 Dose: 667 mg Heparin Sodium (Porcine) (Heparin) 5,000 units SC Q8 [facility] Hydromorphone HCl (Dilaudid) 0.5 mg IVP Q6H PRN PRN Reason: Pain, severe (8-10) Acetaminophen (Ofirmev) 100 mls @ 100 mls/hr IV Q6H [facility] Stop: 05/01/17 14:01 Last Admin: 05/01/17 11:10 Dose: 100 mls/hr Sodium Chloride (Sodium Chloride 0.9%) 1,000 mls @ 100 mls/hr IV .Q10H [facility] Last Admin: 05/01/17 03:33 Dose: 100 mls/hr Azithromycin 500 mg/ Sodium (Chloride) 250 mls @ 250 mls/hr IVPB Q24H [facility] Linezolid (Zyvox 600mg/300ml D5w) 600 mg in 300 mls @ 300 mls/hr IVPB Q12H [facility] Cefepime HCl (Maxipime Iv 1 Gm Premix) 1 gm in 50 mls @ 100 mls/hr IVPB Q12H [facility] Lorazepam (Ativan) 2 mg IVP Q6H PRN PRN Reason: Anxiety Last Admin: 04/30/17 14:29 Dose: 2 mg Methylprednisolone (Solu-Medrol) 40 mg IVP Q12H [facility] Last Admin: 05/01/17 01:47 Dose: 40 mg Pantoprazole Sodium (Protonix Inj) 40 mg IVP DAILY [facility] Last Admin: 05/01/17 11:06 Dose: 40 mg Sodium Bicarbonate (Sodium Bicarbonate Tab) 1,300 mg PO QID [facility] Last Admin: 05/01/17 10:57 Dose: 1,300 mg - Labs Labs: 05/01/17 06:17 05/01/17 06:16 PT 11.1 SECONDS (9.7-12.2) 05/01/17 06:17 INR 1.0 05/01/17 06:17 APTT 23 SECONDS (21-34) 05/01/17 06:17 - Constitutional Appears: Non-toxic, Cachectic, Chronically Ill - Head Exam Head Exam: NORMOCEPHALIC - Eye Exam Eye Exam: PERRL - ENT Exam ENT Exam: Mucous Membranes Dry - Neck Exam Neck Exam: absent: Lymphadenopathy - Respiratory Exam Respiratory Exam: Decreased Breath Sounds - Cardiovascular Exam Cardiovascular Exam: REGULAR RHYTHM - GI/Abdominal Exam GI & Abdominal Exam: Distended, Soft - Rectal Exam Rectal Exam: Deferred - Exam Exam: NORMAL INSPECTION Assessment and Plan (1) Pelvic mass in female Status: Acute (2) Abdominal pain Status: Acute (3) Leukocytosis Status: Acute
[2017-05-01] MEDS: Linezolid 600 mg in D5W 300 ml 600 MG/300 ML BAG IVPB SCH (12:01)
--- NOTE | 2017-05-01 13:07 | CP.PCM.PN ---
Subjective - Date & Time of Evaluation Date of Evaluation: 05/01/17 Time of Evaluation: 13:04 - Subjective Subjective: seen and examined awake oriented still on vent comfortale wbc hi Objective - Vital Signs/Intake and Output Vital Signs (last 24 hours): Temp Pulse Resp BP Pulse Ox 98.3 F 66 17 149/57 L 94 L 05/01/17 12:00 05/01/17 12:02 05/01/17 12:02 05/01/17 12:02 05/01/17 12:02 Intake and Output: 05/01/17 05/01/17 06:59 18:59 Intake Total 1000 1799 Output Total 250 170 Balance 750 1629 - Medications Medications: Current Medications Albumin Human (Albumin Human 25% (12.5 Gm/50 Ml)) 12.5 gm IV TID [facility] Stop: 05/01/17 18:01 Last Admin: 05/01/17 11:07 Dose: 12.5 gm Albuterol/Ipratropium (Duoneb 3 Mg/0.5 Mg (3 Ml) Ud) 3 ml INH RQ6 [facility] Last Admin: 05/01/17 07:35 Dose: 3 ml Calcium Acetate (Phoslo) 667 mg PO TID [facility] Last Admin: 05/01/17 10:58 Dose: 667 mg Heparin Sodium (Porcine) (Heparin) 5,000 units SC Q8 [facility] Hydromorphone HCl (Dilaudid) 0.5 mg IVP Q6H PRN PRN Reason: Pain, severe (8-10) Acetaminophen (Ofirmev) 100 mls @ 100 mls/hr IV Q6H [facility] Stop: 05/01/17 14:01 Last Admin: 05/01/17 11:10 Dose: 100 mls/hr Sodium Chloride (Sodium Chloride 0.9%) 1,000 mls @ 100 mls/hr IV .Q10H [facility] Last Admin: 05/01/17 03:33 Dose: 100 mls/hr Azithromycin 500 mg/ Sodium (Chloride) 250 mls @ 250 mls/hr IVPB Q24H [facility] Linezolid (Zyvox 600mg/300ml D5w) 600 mg in 300 mls @ 300 mls/hr IVPB Q12H [facility] Last Admin: 05/01/17 12:01 Dose: 300 mls/hr Cefepime HCl (Maxipime Iv 1 Gm Premix) 1 gm in 50 mls @ 100 mls/hr IVPB Q12H [facility] Last Admin: 05/01/17 11:57 Dose: 100 mls/hr Lorazepam (Ativan) 2 mg IVP Q6H PRN PRN Reason: Anxiety Last Admin: 04/30/17 14:29 Dose: 2 mg Methylprednisolone (Solu-Medrol) 40 mg IVP Q12H [facility] Last Admin: 05/01/17 01:47 Dose: 40 mg Pantoprazole Sodium (Protonix Inj) 40 mg IVP DAILY [facility] Last Admin: 05/01/17 11:06 Dose: 40 mg Sodium Bicarbonate (Sodium Bicarbonate Tab) 1,300 mg PO QID [facility] Last Admin: 05/01/17 10:57 Dose: 1,300 mg Vitamin A (Vitamin A & D Oint Ud Foilpak) 1 ea TOP Q4 PRN PRN Reason: dry lips - Labs Labs: 05/01/17 06:17 05/01/17 06:16 PT 11.1 SECONDS (9.7-12.2) 05/01/17 06:17 INR 1.0 05/01/17 06:17 APTT 23 SECONDS (21-34) 05/01/17 06:17 - Constitutional Appears: In Acute Distress - Head Exam Head Exam: ATRAUMATIC - Eye Exam Eye Exam: Normal appearance Pupil Exam: NORMAL ACCOMODATION - ENT Exam ENT Exam: Mucous Membranes Moist - Neck Exam Neck Exam: Full ROM - Respiratory Exam Respiratory Exam: Decreased Breath Sounds, Rales - Cardiovascular Exam Cardiovascular Exam: REGULAR RHYTHM - GI/Abdominal Exam GI & Abdominal Exam: Soft - Rectal Exam Rectal Exam: NORMAL INSPECTION - Back Exam Back Exam: NORMAL INSPECTION - Psychiatric Exam Psychiatric exam: Normal Affect - Skin Skin Exam: Normal Color Assessment and Plan - Assessment and Plan (Free Text) Assessment: s/p abd surgery removal of tumer pnumonia uti e feacalis Plan: cont as per orders
[2017-05-01] MEDS: Azithromycin 500 MG in Sodium Chloride 0.9% 250 ML IVPB SCH (13:24)
--- NOTE | 2017-05-01 14:45 | CP.PCM.PN ---
Subjective - Date & Time of Evaluation Date of Evaluation: 05/01/17 Time of Evaluation: 14:45 - Subjective Subjective: dictated Acute Kidney Injury (N17.9) ? etiology. possible ATN Hyponatremia likely multi-factorial: thiazide diuretics, hypotonic fluids ? Increased stimulation of ADH from pelvic pathology concerning for neoplasm Anemia, s/p left nephrectomy for stones active smoker HTN, hyperlipidemia, adnexal mass ascites, hypoalbuminemia Nephrotic syndrome with 3.5 gram proteinuria amd microscopic hematuria. differential include (MPGN due to Hep C, FSGS due to solitary kidney, Membranous nephropathy possibly due to undiagnosed malignancy) Cecal thickening on CT scan metabolic acidosis with respi compensation and superimposed respi alkalosis heterogenous nodular liver with ascites and hx of Hep C ? cirrhosis Objective - Vital Signs/Intake and Output Vital Signs (last 24 hours): Temp Pulse Resp BP Pulse Ox 98.3 F 87 16 138/43 L 95 05/01/17 12:00 05/01/17 13:03 05/01/17 13:03 05/01/17 13:03 05/01/17 13:03 Intake and Output: 05/01/17 05/01/17 06:59 18:59 Intake Total 1000 2049 Output Total 250 170 Balance 750 1879 - Medications Medications: Current Medications Albumin Human (Albumin Human 25% (12.5 Gm/50 Ml)) 12.5 gm IV TID [facility] Stop: 05/01/17 18:01 Last Admin: 05/01/17 13:22 Dose: 12.5 gm Albuterol/Ipratropium (Duoneb 3 Mg/0.5 Mg (3 Ml) Ud) 3 ml INH RQ6 [facility] Last Admin: 05/01/17 13:47 Dose: 3 ml Calcium Acetate (Phoslo) 667 mg PO TID [facility] Last Admin: 05/01/17 13:24 Dose: 667 mg Heparin Sodium (Porcine) (Heparin) 5,000 units SC Q8 [facility] Last Admin: 05/01/17 13:23 Dose: 5,000 units Hydromorphone HCl (Dilaudid) 0.5 mg IVP Q6H PRN PRN Reason: Pain, severe (8-10) Sodium Chloride (Sodium Chloride 0.9%) 1,000 mls @ 100 mls/hr IV .Q10H [facility] Last Admin: 05/01/17 03:33 Dose: 100 mls/hr Azithromycin 500 mg/ Sodium (Chloride) 250 mls @ 250 mls/hr IVPB Q24H [facility] Last Admin: 05/01/17 13:24 Dose: 250 mls/hr Linezolid (Zyvox 600mg/300ml D5w) 600 mg in 300 mls @ 300 mls/hr IVPB Q12H [facility] Last Admin: 05/01/17 12:01 Dose: 300 mls/hr Cefepime HCl (Maxipime Iv 1 Gm Premix) 1 gm in 50 mls @ 100 mls/hr IVPB Q12H [facility] Last Admin: 05/01/17 11:57 Dose: 100 mls/hr Lorazepam (Ativan) 2 mg IVP Q6H PRN PRN Reason: Anxiety Last Admin: 04/30/17 14:29 Dose: 2 mg Methylprednisolone (Solu-Medrol) 40 mg IVP Q12H [facility] Last Admin: 05/01/17 13:24 Dose: 40 mg Pantoprazole Sodium (Protonix Inj) 40 mg IVP DAILY [facility] Last Admin: 05/01/17 11:06 Dose: 40 mg Sodium Bicarbonate (Sodium Bicarbonate Tab) 1,300 mg PO QID [facility] Last Admin: 05/01/17 13:24 Dose: 1,300 mg Vitamin A (Vitamin A & D Oint Ud Foilpak) 1 ea TOP Q4 PRN PRN Reason: dry lips - Labs Labs: 05/01/17 06:17 05/01/17 06:16 PT 11.1 SECONDS (9.7-12.2) 05/01/17 06:17 INR 1.0 05/01/17 06:17 APTT 23 SECONDS (21-34) 05/01/17 06:17
[2017-05-01] MEDS ORDERED: Linezolid 600 mg in D5W 300 ml 600 MG/300 ML BAG IVPB SCH (22:00)
[2017-05-02] MEDS: Midazolam 50 mg/10 ml 100 MG in Sodium Chloride 0.9% 80 ML IV SCH ×2 (00:14→23:35)
[2017-05-02] MEDS: Sodium Chloride 0.9% 1,000 ML IV SCH ×2 (00:17→04:28)
[2017-05-02] MEDS: Linezolid 600 mg in D5W 300 ml 600 MG/300 ML BAG IVPB SCH ×3 (00:43→23:41)
[2017-05-02] MEDS: Albuterol-Ipratrop 3 mg / 0.5 (3 ml) UD INH SCH ×4 (01:52→20:54)
[2017-05-02] MEDS: Propofol 10 mg/ml 1,000 MG/100 ML VIAL IV PRN ×4 (02:27→21:26)
[2017-05-02] MEDS: MethylPREDNISolone 40 mg Vial IVP SCH ×3 (02:31→21:59)
[2017-05-02 04:52] LABS: ARTERIAL BLOOD GAS HCO3 19.3 mmol/L (21-28); ARTERIAL BLOOD GAS HEMOGLOBIN 9.9 g/dL (11.7-17.4); ARTERIAL BLOOD GAS O2 SAT 85.2 % (95-98); ARTERIAL BLOOD GAS PCO2 40 mm/Hg (35-45); ARTERIAL BLOOD GAS PH 7.29 (7.35-7.45); ARTERIAL BLOOD GAS PO2 49 mm/Hg (80-100); ARTERIAL BLOOD GAS TCO2 20.4 mmol/L (22-28)
[2017-05-02 06:48] LABS: BASO # 0.4 K/uL (0.0-0.2); BASO % 1.1 % (0.0-2.0); HEMOGLOBIN 9.5 g/dL (11.0-16.0); LYMPH # 0.5 K/uL (1.0-4.3); LYMPH % 1.5 % (20.0-40.0); MEAN CELL VOLUME 85.4 fL (81.0-99.0); MEAN CORPUSCULAR HEMOGLOBIN 28.6 pg (27.0-31.0); MEAN CORPUSCULAR HGB CONC 33.4 g/dL (33.0-37.0); MEAN PLATELET VOLUME 8.7 fL (7.2-11.7); MONO # 0.8 K/uL (0.0-0.8); MONO % 2.4 % (0.0-10.0); NEUT # 29.9 K/uL (1.8-7.0); PLATELET COUNT 350 K/uL (130-400); RBC 3.33 Mil/uL (3.80-5.20); RED CELL DISTRIBUTION WIDTH 15.2 % (11.5-14.5); WHITE BLOOD COUNT 31.6 K/uL (4.8-10.8)
[2017-05-02 06:59] LABS: ALBUMIN 2.7 g/dL (3.5-5.0); CALCIUM 7.3 mg/dl (8.6-10.4)
--- NOTE | 2017-05-02 07:07 | PN ---
DATE: 05/01/2017. SUBJECTIVE: The patient in ICU intubated on mechanical ventilator. Underwent exploratory lap yesterday. Chest x-ray postop showed infiltrate in the right upper lobe probably aspiration. The patient VRE in the urine . The patient suffers from urosepsis, respiratory failure, aspiration pneumonia. Patient on bed rest, antibiotic, ventilator support. Avel Langley MD
[2017-05-02 08:19] LABS: ANISOCYTOSIS SLIGHT; BANDS 3 % (0-2); HYPOCHROMIC SLIGHT; LYMPHOCYTE 1 % (20-40); MONOCYTE 2 % (0-10); NEUTROPHIL 94 % (50-75); PLATELET ESTIMATE NORMAL (NORMAL); POIKILOCYTOSIS SLIGHT; TOTAL CELLS COUNTED 100
[2017-05-02 08:21] LABS: BURR CELLS SLIGHT
--- NOTE | 2017-05-02 09:16 | RAD ---
Chest x-ray single frontal view History: Right-sided pneumonia. Comparison: 05/01/2017 Findings: Lines and tubes in stable position. Surgical clips in the upper abdomen. Dense consolidative airspace opacifications throughout both lungs with associated bilateral pleural effusions. Upper lobe granulomatous changes. Cardiomegaly. Degenerative changes in the spine and shoulders. Impression: Lines and tubes in stable position. Surgical clips in the upper abdomen. Dense consolidative airspace opacifications throughout both lungs with associated bilateral pleural effusions. Upper lobe granulomatous changes. Cardiomegaly.
[2017-05-02] MEDS: Azithromycin 500 MG in Sodium Chloride 0.9% 250 ML IVPB SCH (10:12)
--- NOTE | 2017-05-02 10:26 | PN ---
DATE: SUBJECTIVE: The patient remained on respirator, family member at the bedside, although the patient is conscious. PHYSICAL EXAMINATION: VITAL SIGNS: Noted to have blood pressure 138/43, pulse of 87, normal temperature. CHEST: Few rhonchi. HEART: No rubs. ABDOMEN: Soft. EXTREMITIES: No pitting edema. LABORATORY DATA: Serum sodium climbing up. She came with serum sodium 129, now it is 131, rising slowly, nonetheless trending up and serum creatinine came down from 2.1 to 2; however, the urine is going up at 65, CO2 17 and serum calcium 7.2, albumin is 2.5, corrected calcium may be near normal, and magnesium 2.4, which is reported to be high. Phosphorus 7.5 which is elevated. IMPRESSION: 1. The patient appeared to have acute kidney injury, which is improving slightly. 2. Hyponatremia, which is trending up, multifactorial as noted with possible syndrome of inappropriate antidiuretic hormone secretion from pathology in the pelvis as reported. 3. Hypertension, and also hyperlipidemia, adnexal mass, ascites, hypoalbuminemia, nephrotic syndrome with 3.5 gm proteinuria and microscopic hematuria, and also on the CAT scan showed cecal thickening and also heterogenous nodular appearance of the liver with ascites and history of hepatitis C, questionable cirrhosis. PLAN: So, the plan is to continue to monitor the patient's serum sodium going up slightly. We need to have fluid restriction on her as it may help the hyponatremia. The patient is receiving the medication including Lasix and to check urine output and creatinine output. Ac Mclain MD
--- NOTE | 2017-05-02 10:32 | RAD ---
HISTORY: Central line placement. COMPARISON: Comparison made with prior study 05/02/2014 0726 hours. Comparison also made with CT scan chest 04/29/2017 FINDINGS: Interval placement right IJ central venous line with tip in the SVC. In situ ETT, tip of which lies approximately 3.8 cm above karlos. NGT is present, tip of which overlies left upper quadrant of the abdomen. LUNGS: Diffuse bilateral infiltrates ; rule out pulmonary edema/ CHF and/or pneumonia. Small biapical blebs again noted right-sided much more conspicuous than left of better seen on CT scan. . Small bilateral effusions PLEURA: As above. No pneumothorax apparent. CARDIOVASCULAR: Normal. OSSEOUS STRUCTURES: No metallic clips left parasagittal upper abdomen unchanged VISUALIZED UPPER ABDOMEN: Normal. OTHER FINDINGS: None. IMPRESSION: Support lines and tubes as above. Diffuse bilateral infiltrates ; rule out pulmonary edema/ CHF and/or pneumonia. Small biapical blebs again noted right-sided much more conspicuous than left of better seen on CT scan. . Small bilateral effusions
[2017-05-02] MEDS: Cefepime IV 1 gm in Dextrose 1 GM/50 ML BAG IVPB SCH ×2 (10:42→23:40)
--- NOTE | 2017-05-02 11:13 | CP.PCM.PN ---
Subjective - Date & Time of Evaluation Date of Evaluation: 05/02/17 Time of Evaluation: 11:10 - Subjective Subjective: pt seen in icu condition worse hypoxamia bialeral lung infiltrate Objective - Vital Signs/Intake and Output Vital Signs (last 24 hours): Temp Pulse Resp BP Pulse Ox 98 F 88 22 155/47 H 80 L 05/02/17 04:00 05/02/17 07:02 05/02/17 07:02 05/02/17 09:00 05/02/17 07:02 Intake and Output: 05/02/17 05/02/17 06:59 18:59 Intake Total 1536 104 Output Total 640 70 Balance 896 34 - Medications Medications: Current Medications Albuterol/Ipratropium (Duoneb 3 Mg/0.5 Mg (3 Ml) Ud) 3 ml INH RQ6 [facility] Last Admin: 05/02/17 09:42 Dose: 3 ml Calcium Acetate (Phoslo) 667 mg PO TID [facility] Last Admin: 05/02/17 10:13 Dose: 667 mg Heparin Sodium (Porcine) (Heparin) 5,000 units SC Q8 [facility] Last Admin: 05/02/17 06:21 Dose: 5,000 units Hydromorphone HCl (Dilaudid) 0.5 mg IVP Q6H PRN PRN Reason: Pain, severe (8-10) Last Admin: 05/02/17 02:09 Dose: 0.5 mg Sodium Chloride (Sodium Chloride 0.9%) 1,000 mls @ 100 mls/hr IV .Q10H [facility] Last Admin: 05/02/17 04:28 Dose: 100 mls/hr Azithromycin 500 mg/ Sodium (Chloride) 250 mls @ 250 mls/hr IVPB Q24H [facility] Last Admin: 05/02/17 10:12 Dose: 250 mls/hr Linezolid (Zyvox 600mg/300ml D5w) 600 mg in 300 mls @ 300 mls/hr IVPB Q12H [facility] Last Admin: 05/02/17 00:43 Dose: 300 mls/hr Cefepime HCl (Maxipime Iv 1 Gm Premix) 1 gm in 50 mls @ 100 mls/hr IVPB Q12H [facility] Last Admin: 05/02/17 10:42 Dose: 100 mls/hr Midazolam HCl 100 mg/ Sodium (Chloride) 100 mls @ 1.32 mls/hr IV .Q24H [facility]; 0.02 MG/KG/HR PRN Reason: Protocol Last Titration: 05/02/17 03:00 Dose: 0 mg/kg/hr, 0 mls/hr Propofol (Diprivan) 1,000 mg in 100 mls @ 1.985 mls/hr IV .Q24H PRN; Protocol; 5 MCG/KG/MIN PRN Reason: TITRATE PER MD ORDER Last Admin: 05/02/17 02:27 Dose: 10 mcg/kg/min, 3.971 mls/hr Cisatracurium Besylate 100 mg/ (Sodium Chloride) 250 mls @ 4.97 mls/hr IV .Q24H ONE PRN Reason: 0.5 MCG/KG/MIN Stop: 05/03/17 09:29 Last Admin: 05/02/17 10:30 Dose: 4.97 mls/hr Lorazepam (Ativan) 2 mg IVP Q4H PRN PRN Reason: Anxiety Last Admin: 05/02/17 02:05 Dose: 2 mg Methylprednisolone (Solu-Medrol) 40 mg IVP Q12H [facility] Last Admin: 05/02/17 02:31 Dose: 40 mg Pantoprazole Sodium (Protonix Inj) 40 mg IVP DAILY [facility] Last Admin: 05/02/17 10:31 Dose: 40 mg Sodium Bicarbonate (Sodium Bicarbonate Tab) 1,300 mg PO QID [facility] Last Admin: 05/02/17 10:12 Dose: 1,300 mg Vitamin A (Vitamin A & D Oint Ud Foilpak) 1 ea TOP Q4 PRN PRN Reason: dry lips - Labs Labs: 05/02/17 06:40 05/02/17 06:37 PT 11.1 SECONDS (9.7-12.2) 05/01/17 06:17 INR 1.0 05/01/17 06:17 APTT 23 SECONDS (21-34) 05/01/17 06:17 - Constitutional Appears: In Acute Distress - Head Exam Head Exam: ATRAUMATIC - ENT Exam ENT Exam: Mucous Membranes Moist - Respiratory Exam Respiratory Exam: Decreased Breath Sounds - Cardiovascular Exam Cardiovascular Exam: REGULAR RHYTHM - Extremities Exam Extremities Exam: Normal Inspection - Skin Skin Exam: Pallor Assessment and Plan - Assessment and Plan (Free Text) Assessment: hypxeamia lecocytosis bilatera; infirte pnumonia chf possble ARDS Plan: CONT ICU CARE
[2017-05-02 11:20] LABS: ABG ALLEN TEST POS; ARTERIAL BLOOD GAS HCO3 19.4 mmol/L (21-28); ARTERIAL BLOOD GAS HEMOGLOBIN 9.4 g/dL (11.7-17.4); ARTERIAL BLOOD GAS O2 SAT 81.5 % (95-98); ARTERIAL BLOOD GAS PCO2 46 mm/Hg (35-45); ARTERIAL BLOOD GAS PH 7.25 (7.35-7.45); ARTERIAL BLOOD GAS PO2 44 mm/Hg (80-100); ARTERIAL BLOOD GAS TCO2 21.6 mmol/L (22-28)
--- NOTE | 2017-05-02 13:40 | CP.CCUPN ---
<Alcon Cornejo - Last Filed: 05/02/17 17:15> CCU Subjective - Physician Review Subjective (Free Text): Patient seen and examined. Intubated and sedated. ROS not obtainable. Urine culture positive for VRE - started on zyvox, cefepime and azithromycin. OGT placed and on tubefeeds. Patient hypoxic today with saturation into 70s. Placed triple lumen catheter into right IJ with consent obtained from daughter. Adminstered lasix 80mg to remove fluid from lungs. Changed solumedrol to q8h from q12h. Added nimbex for more sedation as patient was agitated. Patient is hypoxic and in ARDS now due to aspiration pneumonia which occurred post diagnostic laparoscopy and left salpingo-oopherectomy. CCU Objective - Vital Signs / Intake & Output Vital Signs (Last 4 hours): Vital Signs Temp Pulse Resp BP Pulse Ox 05/02/17 12:02 82 22 127/51 L 83 L 05/02/17 12:00 98.2 F 82 20 83 L 05/02/17 11:02 83 20 128/47 L 75 L 05/02/17 11:00 80 20 75 L 05/02/17 10:09 83 21 138/50 L 94 L 05/02/17 10:02 80 20 133/45 L 93 L 05/02/17 10:00 79 15 94 L Intake and Output (Last 8hrs): Intake & Output 05/01/17 05/02/17 05/02/17 22:59 06:59 14:59 Intake Total 910 1036 1114.4 Output Total 350 445 870 Balance 560 591 244.4 Weight 146 lb 4.8 oz Intake: IV 30 100 Intake, IV Amount 750 936 839.4 Right Distal Port Forearm 36 8 Right Forearm 750 900 200 Right Medial Port 550 Internal Jugular Right Proximal Port 72.4 Internal Jugular Right Proximal TLC 9 Tube Feeding 160 70 175 Output: Urine 350 445 870 Urethral (Ramsey) 350 445 870 Other: # Bowel Movements 1 - Medications Active Medications: Active Medications Generic Name Dose Route Start Last Admin Trade Name Freq PRN Reason Stop Dose Admin Albuterol/Ipratropium 3 ml 04/27/17 20:00 05/02/17 09:42 Duoneb 3 Mg/0.5 Mg (3 Ml) Ud INH 3 ml RQ6 ALEX Administration Calcium Acetate 667 mg 04/30/17 14:00 05/02/17 13:32 Phoslo PO 667 mg TID ALEX Administration Heparin Sodium (Porcine) 5,000 units 05/01/17 14:00 05/02/17 13:32 Heparin SC 5,000 units Q8 ALEX Administration Hydromorphone HCl 0.5 mg 04/30/17 14:10 05/02/17 02:09 Dilaudid IVP 0.5 mg Q6H PRN Administration Pain, severe (8-10) Sodium Chloride 1,000 mls @ 100 mls/hr 04/30/17 17:15 05/02/17 04:28 Sodium Chloride 0.9% IV 100 mls/hr .Q10H ALEX Administration Azithromycin 500 mg/ Sodium 250 mls @ 250 mls/hr 05/01/17 11:00 05/02/17 10: 12 Chloride IVPB 250 mls/hr Q24H ALEX Administration Linezolid 600 mg in 300 mls @ 300 mls/hr 05/01/17 12:00 05/02/17 11:58 Zyvox 600mg/300ml D5w IVPB 300 mls/hr Q12H ALEX Administration Cefepime HCl 1 gm in 50 mls @ 100 mls/hr 05/01/17 11:30 05/02/17 10:42 Maxipime Iv 1 Gm Premix IVPB 100 mls/hr Q12H ALEX Administration Midazolam HCl 100 mg/ Sodium 100 mls @ 1.32 mls/hr 05/01/17 23:45 05/02/17 03 :00 Chloride IV 0 mg/kg/hr .Q24H ALEX 0 mls/hr Protocol Titration 0.02 MG/KG/HR Propofol 1,000 mg in 100 mls @ 1.985 mls/hr 05/02/17 02:14 05/02/17 11:57 Diprivan IV 10 mcg/kg/min .Q24H PRN 3.971 mls/hr TITRATE PER MD ORDER Administration Protocol 5 MCG/KG/MIN Cisatracurium Besylate 100 mg/ 250 mls @ 4.97 mls/hr 05/02/17 13:30 Sodium Chloride IV 05/03/17 13:29 .Q24H ONE Protocol 0.5 MCG/KG/MIN Lorazepam 2 mg 05/01/17 21:54 05/02/17 02:05 Ativan IVP 2 mg Q4H PRN Administration Anxiety Methylprednisolone 40 mg 05/02/17 13:38 Solu-Medrol IVP Q8H ALEX Pantoprazole Sodium 40 mg 05/01/17 10:00 05/02/17 10:31 Protonix Inj IVP 40 mg DAILY ALEX Administration Sodium Bicarbonate 1,300 mg 04/29/17 10:00 05/02/17 13:33 Sodium Bicarbonate Tab PO 1,300 mg QID ALEX Administration Vitamin A 1 ea 05/01/17 12:38 Vitamin A & D Oint Ud Foilpak TOP Q4 PRN dry lips - Patient Studies Lab Studies: Microbiology Studies 04/30/17 18:35 Gram Stain - Final Sputum Sputum Culture - Final Yeast Species 04/28/17 09:23 Urine Culture - Final Urine,Clean Catch Vancomycin Resistant E.faecium Lab Studies 05/02/17 05/02/17 05/02/17 Range/Units 11:17 06:40 06:37 WBC 31.6 H (4.8-10.8) K/uL RBC 3.33 L (3.80-5.20) Mil/uL Hgb 9.5 L (11.0-16.0) g/dL Hct 28.5 L (34.0-47.0) % MCV 85.4 (81.0-99.0) fL MCH 28.6 (27.0-31.0) pg MCHC 33.4 (33.0-37.0) g/dL RDW 15.2 H (11.5-14.5) % Plt Count 350 (130-400) K/uL MPV 8.7 (7.2-11.7) fL Neut % (Auto) 95.0 H (50.0-75.0) % Lymph % (Auto) 1.5 L (20.0-40.0) % Pettis % (Auto) 2.4 (0.0-10.0) % Eos % (Auto) 0.0 (0.0-4.0) % Baso % (Auto) 1.1 (0.0-2.0) % Neut # (Auto) 29.9 H (1.8-7.0) K/uL Lymph # (Auto) 0.5 L (1.0-4.3) K/uL Pettis # (Auto) 0.8 (0.0-0.8) K/uL Eos # (Auto) 0.0 (0.0-0.7) K/uL Baso # (Auto) 0.4 H (0.0-0.2) K/uL Neutrophils % (Manual) 94 H (50-75) % Band Neutrophils % 3 H (0-2) % Lymphocytes % (Manual) 1 L (20-40) % Monocytes % (Manual) 2 (0-10) % Platelet Estimate Normal (NORMAL) Hypochromasia (manual) Slight Poikilocytosis (manual Slight Anisocytosis (manual) Slight Jose Cells Slight Puncture Site Rb pCO2 46 H (35-45) mm/Hg pO2 44 L* (80-100) mm/Hg HCO3 19.4 L (21-28) mmol/L ABG pH 7.25 L (7.35-7.45) ABG Total CO2 21.6 L (22-28) mmol/L ABG O2 Saturation 81.5 L (95-98) % ABG Base Excess -6.7 L (-2.0-3.0) mmol/L ABG Hemoglobin 9.4 L (11.7-17.4) g/dL ABG Carboxyhemoglobin 2.1 H (0.5-1.5) % POC ABG HHb (Measured) 17.9 H (0.0-5.0) % ABG Methemoglobin 1.2 (0.0-3.0) % Pierre Test Pos A-a O2 Difference 612.0 mm/Hg Respiratory Index 13.9 Hgb O2 Saturation 78.8 L (95.0-98.0) % Vent Mode Prvc Mechanical Rate 20 FiO2 100.0 % Tidal Volume 400 PEEP 12 Crit Value Called To Dr smita barrera Crit Value Called By Adela correa construction foreman Crit Value Read Back Y Blood Gas Notified Time 1120 Sodium 135 (132-148) mmol/L Potassium 3.8 (3.6-5.2) mmol/L Chloride 103 (98-107) mmol/L Carbon Dioxide 18 L (22-30) mmol/L Anion Gap 17 (10-20) BUN 61 H (7-17) mg/dL Creatinine 1.5 H (0.7-1.2) mg/dL Est GFR ( Amer) 42 Est GFR (Non-Af Amer) 35 Random Glucose 133 H (65-105) mg/dL Calcium 7.3 L (8.6-10.4) mg/dl Phosphorus 5.9 H (2.5-4.5) mg/dL Magnesium 2.4 H (1.6-2.3) mg/dL Total Bilirubin 0.5 (0.2-1.3) mg/dL AST 36 (14-36) U/L ALT 40 (9-52) U/L Alkaline Phosphatase 105 (38-126) U/L Total Protein 5.5 L (6.3-8.3) g/dL Albumin 2.7 L (3.5-5.0) g/dL Globulin 2.8 (2.2-3.9) gm/dL Albumin/Globulin Ratio 1.0 (1.0-2.1) SHORTY Nuclear Membr Pat (Negative) Double Strand DNA Ab IU/mL 05/02/17 04/30/17 Range/Units 04:45 07:43 WBC (4.8-10.8) K/uL RBC (3.80-5.20) Mil/uL Hgb (11.0-16.0) g/dL Hct (34.0-47.0) % MCV (81.0-99.0) fL MCH (27.0-31.0) pg MCHC (33.0-37.0) g/dL RDW (11.5-14.5) % Plt Count (130-400) K/uL MPV (7.2-11.7) fL Neut % (Auto) (50.0-75.0) % Lymph % (Auto) (20.0-40.0) % Pettis % (Auto) (0.0-10.0) % Eos % (Auto) (0.0-4.0) % Baso % (Auto) (0.0-2.0) % Neut # (Auto) (1.8-7.0) K/uL Lymph # (Auto) (1.0-4.3) K/uL Pettis # (Auto) (0.0-0.8) K/uL Eos # (Auto) (0.0-0.7) K/uL Baso # (Auto) (0.0-0.2) K/uL Neutrophils % (Manual) (50-75) % Band Neutrophils % (0-2) % Lymphocytes % (Manual) (20-40) % Monocytes % (Manual) (0-10) % Platelet Estimate (NORMAL) Hypochromasia (manual) Poikilocytosis (manual Anisocytosis (manual) Knippa Cells Puncture Site Rb pCO2 40 (35-45) mm/Hg pO2 49 L (80-100) mm/Hg HCO3 19.3 L (21-28) mmol/L ABG pH 7.29 L (7.35-7.45) ABG Total CO2 20.4 L (22-28) mmol/L ABG O2 Saturation 85.2 L (95-98) % ABG Base Excess -6.9 L (-2.0-3.0) mmol/L ABG Hemoglobin 9.9 L (11.7-17.4) g/dL ABG Carboxyhemoglobin 2.2 H (0.5-1.5) % POC ABG HHb (Measured) 14.3 H (0.0-5.0) % ABG Methemoglobin 0.9 (0.0-3.0) % Pierre Test Na A-a O2 Difference 614.0 mm/Hg Respiratory Index 12.5 Hgb O2 Saturation 82.5 L (95.0-98.0) % Vent Mode Prvc Mechanical Rate 18 FiO2 100.0 % Tidal Volume 450 PEEP 5 Crit Value Called To Crit Value Called By Crit Value Read Back Blood Gas Notified Time Sodium (132-148) mmol/L Potassium (3.6-5.2) mmol/L Chloride (98-107) mmol/L Carbon Dioxide (22-30) mmol/L Anion Gap (10-20) BUN (7-17) mg/dL Creatinine (0.7-1.2) mg/dL Est GFR ( Amer) Est GFR (Non-Af Amer) Random Glucose (65-105) mg/dL Calcium (8.6-10.4) mg/dl Phosphorus (2.5-4.5) mg/dL Magnesium (1.6-2.3) mg/dL Total Bilirubin (0.2-1.3) mg/dL AST (14-36) U/L ALT (9-52) U/L Alkaline Phosphatase (38-126) U/L Total Protein (6.3-8.3) g/dL Albumin (3.5-5.0) g/dL Globulin (2.2-3.9) gm/dL Albumin/Globulin Ratio (1.0-2.1) SHORTY Nuclear Membr Pat Negative (Negative) Double Strand DNA Ab <1 IU/mL Laboratory Results - last 24 hr 04/30/17 05/02/17 05/02/17 07:43 04:45 06:37 WBC RBC Hgb Hct MCV MCH MCHC RDW Plt Count MPV Neut % (Auto) Lymph % (Auto) Pettis % (Auto) Eos % (Auto) Baso % (Auto) Neut # (Auto) Lymph # (Auto) Pettis # (Auto) Eos # (Auto) Baso # (Auto) Neutrophils % (Manual) Band Neutrophils % Lymphocytes % (Manual) Monocytes % (Manual) Platelet Estimate Hypochromasia (manual) Poikilocytosis (manual Anisocytosis (manual) Knippa Cells Puncture Site Rb pCO2 40 pO2 49 L HCO3 19.3 L ABG pH 7.29 L ABG Total CO2 20.4 L ABG O2 Saturation 85.2 L ABG Base Excess -6.9 L ABG Hemoglobin 9.9 L ABG Carboxyhemoglobin 2.2 H POC ABG HHb (Measured) 14.3 H ABG Methemoglobin 0.9 Pierre Test Na A-a O2 Difference 614.0 Respiratory Index 12.5 Hgb O2 Saturation 82.5 L Vent Mode Prvc Mechanical Rate 18 FiO2 100.0 Tidal Volume 450 PEEP 5 Crit Value Called To Crit Value Called By Crit Value Read Back Blood Gas Notified Time Sodium 135 Potassium 3.8 Chloride 103 Carbon Dioxide 18 L Anion Gap 17 BUN 61 H Creatinine 1.5 H Est GFR ( Amer) 42 Est GFR (Non-Af Amer) 35 Random Glucose 133 H Calcium 7.3 L Phosphorus 5.9 H Magnesium 2.4 H Total Bilirubin 0.5 AST 36 ALT 40 Alkaline Phosphatase 105 Total Protein 5.5 L Albumin 2.7 L Globulin 2.8 Albumin/Globulin Ratio 1.0 SHORTY Nuclear Membr Pat Negative Double Strand DNA Ab <1 05/02/17 05/02/17 06:40 11:17 WBC 31.6 H RBC 3.33 L Hgb 9.5 L Hct 28.5 L MCV 85.4 MCH 28.6 MCHC 33.4 RDW 15.2 H Plt Count 350 MPV 8.7 Neut % (Auto) 95.0 H Lymph % (Auto) 1.5 L Pettis % (Auto) 2.4 Eos % (Auto) 0.0 Baso % (Auto) 1.1 Neut # (Auto) 29.9 H Lymph # (Auto) 0.5 L Pettis # (Auto) 0.8 Eos # (Auto) 0.0 Baso # (Auto) 0.4 H Neutrophils % (Manual) 94 H Band Neutrophils % 3 H Lymphocytes % (Manual) 1 L Monocytes % (Manual) 2 Platelet Estimate Normal Hypochromasia (manual) Slight Poikilocytosis (manual Slight Anisocytosis (manual) Slight Knippa Cells Slight Puncture Site Rb pCO2 46 H pO2 44 L* HCO3 19.4 L ABG pH 7.25 L ABG Total CO2 21.6 L ABG O2 Saturation 81.5 L ABG Base Excess -6.7 L ABG Hemoglobin 9.4 L ABG Carboxyhemoglobin 2.1 H POC ABG HHb (Measured) 17.9 H ABG Methemoglobin 1.2 Pierre Test Pos A-a O2 Difference 612.0 Respiratory Index 13.9 Hgb O2 Saturation 78.8 L Vent Mode Prvc Mechanical Rate 20 FiO2 100.0 Tidal Volume 400 PEEP 12 Crit Value Called To Dr smita barrera Crit Value Called By Adela correa construction foreman Crit Value Read Back Y Blood Gas Notified Time 1120 Sodium Potassium Chloride Carbon Dioxide Anion Gap BUN Creatinine Est GFR ( Amer) Est GFR (Non-Af Amer) Random Glucose Calcium Phosphorus Magnesium Total Bilirubin AST ALT Alkaline Phosphatase Total Protein Albumin Globulin Albumin/Globulin Ratio SHORTY Nuclear Membr Pat Double Strand DNA Ab Fingerstick Blood Sugar Results: 123 - Procedures Procedures (Free Text): - Constitutional Appears: intubated, altered, non-responsive to verbal stimuli - Head Exam Head Exam: ATRAUMATIC, NORMAL INSPECTION, NORMOCEPHALIC - ENT Exam ENT Exam: Mucous Membranes Moist, Normal Exam - Respiratory Exam Respiratory Exam: Rhonchi (mild), NORMAL BREATHING PATTERN. absent: Accessory Muscle Use, Respiratory Distress - Cardiovascular Exam Cardiovascular Exam: REGULAR RHYTHM - GI/Abdominal Exam GI & Abdominal Exam: Distended (mildly), Guarding (lower quadrants), Soft, Tenderness. absent: Firm, Rebound - Extremities Exam Extremities Exam: Full ROM, Normal Inspection - Neurological Exam Neurological Exam: Altered, not awake - Skin Skin Exam: Dry, Intact, Normal Color, Warm Review of Systems - Review of Systems Systems not reviewed;Unavailable: Intubated Assessment/Plan - Assessment and Plan (Free Text) Assessment: 66F w/ascites as seen on CT of abdomen, pelvic mass: ID: [id number] due to aspiration pneumonia which occurred post diagnostic laparoscopy and left salpingo-oopherectomyLeukocytosis, UTI Infectious Disease, Dr Grant on board General Surgery Dr Hollingsworth on board POD#2/ s/p diagnostic laparascopy with Left salpino-oopherectomy with Dr Hollingsworth 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 Azithromycin 500mg IV QD started 05/01/17 Zyvox 600mg IV BID started 05/01/17 Cefepime 1g IV BID started 05/01/17 Follow up mycoplasma Legionella NEGATIVE Procalcitonin HIGH Albumin 15% 12.5gm x 3 given on 05/01/17 Cardio: hx of diastolic heart failure, HTN, HLD Belting Cutter Dr Mitchell on board Norvasc 10mg PO QD Lasix 80mg IVP BID hydralazine 50mg PO BID Hydralazine 25mg PO Q4H PRN EKG and Echo ordered before OR Patient not on ACEI/ARB due to TONA Pulm: hx of COPD, L PNA/effuision, ARDS Skiver Welt End Dr Langley on board duoneb 3ml INH RQ6 solumedrol 40mg IVP Q8 Lasix 40mg IV BID GI: Cecal thickening on CT scan GI Dr Butt on board 1 tab PO TID Bentyl 10mg PO BID place OGT - start tube feeds Renal: TONA, CKD, s/p left nephrectomy for stones Student Accounts Coordinator Dr Andrade on board Nephrotic syndrome with 3.5 gram proteinuria amd microscopic hematuria. differential include (MPGN due to Hep C, FSGS due to solitary kidney, Membranous nephropathy possibly due to undiagnosed malignancy) will check anca/dna ab as proteinuria and microscopic hematuria on UA Sodium Bicarb 1,300 mg PO QID Phoslo 667mg PO TID Lasix 40mg IV BID 500mL fluid challenge 05/01/17 neuro: Dilaudid 0.5mg IV Q4H PRN for pain control Electrolytes: hyponatremia Student Accounts Coordinator Dr Andrade on board Hyponatremia likely multi-factorial: thiazide diuretics, hypotonic fluids ? Increased stimulation of ADH from pelvic pathology concerning for neoplasm director behavioral health: adnexal mass PRECISION DEVICES INSPECTOR/TESTER Dr Barajas consulted - signed off POD#1/ s/p diagnostic laparascopy with Left salpino-oopherectomy with Dr Hollingsworth PPx: Protonix 40mg PO QD Heparin 5,000 units <Jesse Barrera S - Last Filed: 05/02/17 18:26> CCU Objective - Vital Signs / Intake & Output Vital Signs (Last 4 hours): Vital Signs Temp Pulse Resp BP Pulse Ox 05/02/17 18:02 93 H 20 149/51 L 90 L 05/02/17 18:00 92 H 20 89 L 05/02/17 17:02 143/47 L 05/02/17 17:00 57 L 20 92 L 05/02/17 16:02 80 20 135/48 L 95 05/02/17 16:00 98.3 F 81 20 94 L 05/02/17 15:03 77 20 154/43 H 94 L 05/02/17 15:00 80 20 94 L 05/02/17 14:48 135/50 L Intake and Output (Last 8hrs): Intake & Output 05/02/17 05/02/17 05/02/17 06:59 14:59 22:59 Intake Total 1036 1230.6 342.4 Output Total 445 1095 475 Balance 591 135.6 -132.6 Weight 146 lb 4.8 oz Intake: IV 30 100 100 Intake, IV Amount 936 885.6 102.4 Right Distal Port Forearm 36 8 Right Forearm 900 200 Right Medial Port 550 Internal Jugular Right Proximal Port 108.6 72.4 Internal Jugular Right Proximal TLC 19 30 Tube Feeding 70 245 140 Output: Urine 445 1095 475 Urethral (Ramsey) 445 1095 475 Other: # Bowel Movements 1 - Medications Active Medications: Active Medications Generic Name Dose Route Start Last Admin Trade Name Freq PRN Reason Stop Dose Admin Albuterol/Ipratropium 3 ml 04/27/17 20:00 05/02/17 14:13 Duoneb 3 Mg/0.5 Mg (3 Ml) Ud INH 3 ml RQ6 ALEX Administration Calcium Acetate 667 mg 04/30/17 14:00 05/02/17 17:08 Phoslo PO 667 mg TID ALEX Administration Furosemide 40 mg 05/02/17 14:45 05/02/17 14:48 Lasix IVP 40 mg Q12 ALEX Administration Heparin Sodium (Porcine) 5,000 units 05/01/17 14:00 05/02/17 13:32 Heparin SC 5,000 units Q8 ALEX Administration Hydromorphone HCl 0.5 mg 04/30/17 14:10 05/02/17 02:09 Dilaudid IVP 0.5 mg Q6H PRN Administration Pain, severe (8-10) Azithromycin 500 mg/ Sodium 250 mls @ 250 mls/hr 05/01/17 11:00 05/02/17 10: 12 Chloride IVPB 250 mls/hr Q24H ALEX Administration Linezolid 600 mg in 300 mls @ 300 mls/hr 05/01/17 12:00 05/02/17 11:58 Zyvox 600mg/300ml D5w IVPB 300 mls/hr Q12H ALEX Administration Cefepime HCl 1 gm in 50 mls @ 100 mls/hr 05/01/17 11:30 05/02/17 10:42 Maxipime Iv 1 Gm Premix IVPB 100 mls/hr Q12H ALEX Administration Midazolam HCl 100 mg/ Sodium 100 mls @ 1.32 mls/hr 05/01/17 23:45 05/02/17 03 :00 Chloride IV 0 mg/kg/hr .Q24H ALEX 0 mls/hr Protocol Titration 0.02 MG/KG/HR Propofol 1,000 mg in 100 mls @ 1.985 mls/hr 05/02/17 02:14 05/02/17 17:07 Diprivan IV 10 mcg/kg/min .Q24H PRN 3.971 mls/hr TITRATE PER MD ORDER Administration Protocol 5 MCG/KG/MIN Cisatracurium Besylate 100 mg/ 250 mls @ 4.97 mls/hr 05/02/17 13:30 05/02/17 14:45 Sodium Chloride IV 05/03/17 13:29 0.6 mcg/kg/min .Q24H ONE 5.97 mls/hr Protocol Administration 0.5 MCG/KG/MIN Lorazepam 2 mg 05/01/17 21:54 05/02/17 02:05 Ativan IVP 2 mg Q4H PRN Administration Anxiety Methylprednisolone 40 mg 05/02/17 22:00 Solu-Medrol IVP Q8 ALEX Pantoprazole Sodium 40 mg 05/01/17 10:00 05/02/17 10:31 Protonix Inj IVP 40 mg DAILY ALEX Administration Sodium Bicarbonate 1,300 mg 04/29/17 10:00 05/02/17 17:08 Sodium Bicarbonate Tab PO 1,300 mg QID ALEX Administration Vitamin A 1 ea 05/01/17 12:38 Vitamin A & D Oint Ud Foilpak TOP Q4 PRN dry lips - Patient Studies Lab Studies: Microbiology Studies 04/30/17 18:35 Gram Stain - Final Sputum Sputum Culture - Final Yeast Species Lab Studies 05/02/17 05/02/17 05/02/17 Range/Units 11:17 06:40 06:37 WBC 31.6 H (4.8-10.8) K/uL RBC 3.33 L (3.80-5.20) Mil/uL Hgb 9.5 L (11.0-16.0) g/dL Hct 28.5 L (34.0-47.0) % MCV 85.4 (81.0-99.0) fL MCH 28.6 (27.0-31.0) pg MCHC 33.4 (33.0-37.0) g/dL RDW 15.2 H (11.5-14.5) % Plt Count 350 (130-400) K/uL MPV 8.7 (7.2-11.7) fL Neut % (Auto) 95.0 H (50.0-75.0) % Lymph % (Auto) 1.5 L (20.0-40.0) % Pettis % (Auto) 2.4 (0.0-10.0) % Eos % (Auto) 0.0 (0.0-4.0) % Baso % (Auto) 1.1 (0.0-2.0) % Neut # (Auto) 29.9 H (1.8-7.0) K/uL Lymph # (Auto) 0.5 L (1.0-4.3) K/uL Pettis # (Auto) 0.8 (0.0-0.8) K/uL Eos # (Auto) 0.0 (0.0-0.7) K/uL Baso # (Auto) 0.4 H (0.0-0.2) K/uL Neutrophils % (Manual) 94 H (50-75) % Band Neutrophils % 3 H (0-2) % Lymphocytes % (Manual) 1 L (20-40) % Monocytes % (Manual) 2 (0-10) % Platelet Estimate Normal (NORMAL) Hypochromasia (manual) Slight Poikilocytosis (manual Slight Anisocytosis (manual) Slight Jose Cells Slight Puncture Site Rb pCO2 46 H (35-45) mm/Hg pO2 44 L* (80-100) mm/Hg HCO3 19.4 L (21-28) mmol/L ABG pH 7.25 L (7.35-7.45) ABG Total CO2 21.6 L (22-28) mmol/L ABG O2 Saturation 81.5 L (95-98) % ABG Base Excess -6.7 L (-2.0-3.0) mmol/L ABG Hemoglobin 9.4 L (11.7-17.4) g/dL ABG Carboxyhemoglobin 2.1 H (0.5-1.5) % POC ABG HHb (Measured) 17.9 H (0.0-5.0) % ABG Methemoglobin 1.2 (0.0-3.0) % Pierre Test Pos A-a O2 Difference 612.0 mm/Hg Respiratory Index 13.9 Hgb O2 Saturation 78.8 L (95.0-98.0) % Vent Mode Prvc Mechanical Rate 20 FiO2 100.0 % Tidal Volume 400 PEEP 12 Crit Value Called To Dr smita barrera Crit Value Called By Adela correa construction foreman Crit Value Read Back Y Blood Gas Notified Time 1120 Sodium 135 (132-148) mmol/L Potassium 3.8 (3.6-5.2) mmol/L Chloride 103 (98-107) mmol/L Carbon Dioxide 18 L (22-30) mmol/L Anion Gap 17 (10-20) BUN 61 H (7-17) mg/dL Creatinine 1.5 H (0.7-1.2) mg/dL Est GFR ( Amer) 42 Est GFR (Non-Af Amer) 35 Random Glucose 133 H (65-105) mg/dL Calcium 7.3 L (8.6-10.4) mg/dl Phosphorus 5.9 H (2.5-4.5) mg/dL Magnesium 2.4 H (1.6-2.3) mg/dL Total Bilirubin 0.5 (0.2-1.3) mg/dL AST 36 (14-36) U/L ALT 40 (9-52) U/L Alkaline Phosphatase 105 (38-126) U/L Total Protein 5.5 L (6.3-8.3) g/dL Albumin 2.7 L (3.5-5.0) g/dL Globulin 2.8 (2.2-3.9) gm/dL Albumin/Globulin Ratio 1.0 (1.0-2.1) 05/02/17 Range/Units 04:45 WBC (4.8-10.8) K/uL RBC (3.80-5.20) Mil/uL Hgb (11.0-16.0) g/dL Hct (34.0-47.0) % MCV (81.0-99.0) fL MCH (27.0-31.0) pg MCHC (33.0-37.0) g/dL RDW (11.5-14.5) % Plt Count (130-400) K/uL MPV (7.2-11.7) fL Neut % (Auto) (50.0-75.0) % Lymph % (Auto) (20.0-40.0) % Pettis % (Auto) (0.0-10.0) % Eos % (Auto) (0.0-4.0) % Baso % (Auto) (0.0-2.0) % Neut # (Auto) (1.8-7.0) K/uL Lymph # (Auto) (1.0-4.3) K/uL Pettis # (Auto) (0.0-0.8) K/uL Eos # (Auto) (0.0-0.7) K/uL Baso # (Auto) (0.0-0.2) K/uL Neutrophils % (Manual) (50-75) % Band Neutrophils % (0-2) % Lymphocytes % (Manual) (20-40) % Monocytes % (Manual) (0-10) % Platelet Estimate (NORMAL) Hypochromasia (manual) Poikilocytosis (manual Anisocytosis (manual) Jose Cells Puncture Site Rb pCO2 40 (35-45) mm/Hg pO2 49 L (80-100) mm/Hg HCO3 19.3 L (21-28) mmol/L ABG pH 7.29 L (7.35-7.45) ABG Total CO2 20.4 L (22-28) mmol/L ABG O2 Saturation 85.2 L (95-98) % ABG Base Excess -6.9 L (-2.0-3.0) mmol/L ABG Hemoglobin 9.9 L (11.7-17.4) g/dL ABG Carboxyhemoglobin 2.2 H (0.5-1.5) % POC ABG HHb (Measured) 14.3 H (0.0-5.0) % ABG Methemoglobin 0.9 (0.0-3.0) % Pierre Test Na A-a O2 Difference 614.0 mm/Hg Respiratory Index 12.5 Hgb O2 Saturation 82.5 L (95.0-98.0) % Vent Mode Prvc Mechanical Rate 18 FiO2 100.0 % Tidal Volume 450 PEEP 5 Crit Value Called To Crit Value Called By Crit Value Read Back Blood Gas Notified Time Sodium (132-148) mmol/L Potassium (3.6-5.2) mmol/L Chloride (98-107) mmol/L Carbon Dioxide (22-30) mmol/L Anion Gap (10-20) BUN (7-17) mg/dL Creatinine (0.7-1.2) mg/dL Est GFR ( Amer) Est GFR (Non-Af Amer) Random Glucose (65-105) mg/dL Calcium (8.6-10.4) mg/dl Phosphorus (2.5-4.5) mg/dL Magnesium (1.6-2.3) mg/dL Total Bilirubin (0.2-1.3) mg/dL AST (14-36) U/L ALT (9-52) U/L Alkaline Phosphatase (38-126) U/L Total Protein (6.3-8.3) g/dL Albumin (3.5-5.0) g/dL Globulin (2.2-3.9) gm/dL Albumin/Globulin Ratio (1.0-2.1) Laboratory Results - last 24 hr 05/02/17 05/02/17 05/02/17 04:45 06:37 06:40 WBC 31.6 H RBC 3.33 L Hgb 9.5 L Hct 28.5 L MCV 85.4 MCH 28.6 MCHC 33.4 RDW 15.2 H Plt Count 350 MPV 8.7 Neut % (Auto) 95.0 H Lymph % (Auto) 1.5 L Pettis % (Auto) 2.4 Eos % (Auto) 0.0 Baso % (Auto) 1.1 Neut # (Auto) 29.9 H Lymph # (Auto) 0.5 L Pettis # (Auto) 0.8 Eos # (Auto) 0.0 Baso # (Auto) 0.4 H Neutrophils % (Manual) 94 H Band Neutrophils % 3 H Lymphocytes % (Manual) 1 L Monocytes % (Manual) 2 Platelet Estimate Normal Hypochromasia (manual) Slight Poikilocytosis (manual Slight Anisocytosis (manual) Slight Knippa Cells Slight Puncture Site Rb pCO2 40 pO2 49 L HCO3 19.3 L ABG pH 7.29 L ABG Total CO2 20.4 L ABG O2 Saturation 85.2 L ABG Base Excess -6.9 L ABG Hemoglobin 9.9 L ABG Carboxyhemoglobin 2.2 H POC ABG HHb (Measured) 14.3 H ABG Methemoglobin 0.9 Pierre Test Na A-a O2 Difference 614.0 Respiratory Index 12.5 Hgb O2 Saturation 82.5 L Vent Mode Prvc Mechanical Rate 18 FiO2 100.0 Tidal Volume 450 PEEP 5 Crit Value Called To Crit Value Called By Crit Value Read Back Blood Gas Notified Time Sodium 135 Potassium 3.8 Chloride 103 Carbon Dioxide 18 L Anion Gap 17 BUN 61 H Creatinine 1.5 H Est GFR ( Amer) 42 Est GFR (Non-Af Amer) 35 Random Glucose 133 H Calcium 7.3 L Phosphorus 5.9 H Magnesium 2.4 H Total Bilirubin 0.5 AST 36 ALT 40 Alkaline Phosphatase 105 Total Protein 5.5 L Albumin 2.7 L Globulin 2.8 Albumin/Globulin Ratio 1.0 05/02/17 11:17 WBC RBC Hgb Hct MCV MCH MCHC RDW Plt Count MPV Neut % (Auto) Lymph % (Auto) Pettis % (Auto) Eos % (Auto) Baso % (Auto) Neut # (Auto) Lymph # (Auto) Pettis # (Auto) Eos # (Auto) Baso # (Auto) Neutrophils % (Manual) Band Neutrophils % Lymphocytes % (Manual) Monocytes % (Manual) Platelet Estimate Hypochromasia (manual) Poikilocytosis (manual Anisocytosis (manual) Jose Cells Puncture Site Rb pCO2 46 H pO2 44 L* HCO3 19.4 L ABG pH 7.25 L ABG Total CO2 21.6 L ABG O2 Saturation 81.5 L ABG Base Excess -6.7 L ABG Hemoglobin 9.4 L ABG Carboxyhemoglobin 2.1 H POC ABG HHb (Measured) 17.9 H ABG Methemoglobin 1.2 Pierre Test Pos A-a O2 Difference 612.0 Respiratory Index 13.9 Hgb O2 Saturation 78.8 L Vent Mode Prvc Mechanical Rate 20 FiO2 100.0 Tidal Volume 400 PEEP 12 Crit Value Called To Dr smita barrera Crit Value Called By Adela correa construction foreman Crit Value Read Back Y Blood Gas Notified Time 1120 Sodium Potassium Chloride Carbon Dioxide Anion Gap BUN Creatinine Est GFR ( Amer) Est GFR (Non-Af Amer) Random Glucose Calcium Phosphorus Magnesium Total Bilirubin AST ALT Alkaline Phosphatase Total Protein Albumin Globulin Albumin/Globulin Ratio Attending/Attestation - Attestation I have personally seen and examined this patient.: Yes I have fully participated in the care of the patient.: Yes I have reviewed all pertinent clinical information: Yes Notes (Text): 05/02/17 18:22 patient seen and examined in the intensive care unit. Case discussed with house staff in the morning patient overnight was placed on 100% FiO2 with PEEP for desaturation and increasing tachypnea, elevated peak airway pressure chest x-ray showed worsening bilateral infiltrate consistent with ARDS Patient given Lasix 80 mg Low tidal volume to decrease peak airway pressure CVP 18 Continue IV antibiotics for pneumonia and UTI Continue diuretics Monitor ABG and chest x-ray Patient diuresed with improving oxygenation Case discussed with family at length
--- NOTE | 2017-05-02 14:36 | CP.PCM.PN ---
Subjective - Date & Time of Evaluation Date of Evaluation: 05/02/17 Time of Evaluation: 14:33 - Subjective Subjective: Follow up Nephrology Consultation: Assessment: critical ARDS with acute respi failure Acute Kidney Injury (N17.9) ? etiology. possible ATN Hyponatremia likely multi-factorial: thiazide diuretics, hypotonic fluids ? Increased stimulation of ADH from pelvic pathology concerning for neoplasm Anemia, s/p left nephrectomy for stones active smoker HTN, hyperlipidemia, adnexal mass ascites, hypoalbuminemia Nephrotic syndrome with 3.5 gram proteinuria amd microscopic hematuria. differential include (MPGN due to Hep C, FSGS due to solitary kidney, Membranous nephropathy possibly due to undiagnosed malignancy) Cecal thickening on CT scan metabolic acidosis with respi compensation and superimposed respi alkalosis heterogenous nodular liver with ascites and hx of Hep C ? cirrhosis Plan No acute need for renal replacement therapy at this time but may need soon, will need close follow up Hypertension control with meds as ordered. Patient not on ACEI/ARB due to TONA. Monitor Input/Output, daily weights and renal function with basic metabolic panel lasix 40-80 mg IV BID if stable hemodynamics continue with sodium bicarb 1300 mg qid ICU, surgery, ID following will check anca/dna ab as proteinuria and microscopic hematuria on UA. she is not a candidate for kidney biopsy at present due to solitary kidney and pending oncologic work up, acute illness. check RA factor and cryoglobulins as well Dose meds/antibiotics for reduced GFR. Avoid fleets enema/magnesium based laxatives. Avoid nephrotoxins/NSAIDs/ iodinated contrast (unless needed emergently) Glycemic control Further work up/management as per primary team Thanks for allowing me to participate in care of your patient. Will follow patient with you. Please call if any Qs. d/w team Dr Scott Andrade Office: [phone] reason for consult: TONA and hyponatremia HPI: Pt is a 66 F with hx of hypertension (years), smoker presented with complaints of abdomen pain and leg swelling, found to have ascites and left adnexal cystic mass, renal consult for TONA and hyponatremia. pt also reports hx of left nephrectomy for kidney stones she has een on HCTZ and also was receiving hypotonic fluids as D5/0.45% saline Denies OTC/herbal meds or NSAIDs No recent iodinated contrast exposure. No obvious episodes of low BP. ROS: unable pt intubated/ went to OR 04/30/17 for expl lap s/p left oopherectomy Physical Examination: General Appearance: intubated Vitals reviewed and noted as below Head; Atraumatic, normocephalic ENT: intubated Neck; supple no lymphadenopathy, no thyromegaly or bruit Lungs: increased respiratory rate/effort. Breath sounds bilateral with basal crackles Heart: Increased rate. s1s2 normal. No rub or gallop. Extremities: 1-2+ edema. No varicose veins Neurological: Patient is sedated. Skin: Warm and dry. Normal turgor. No rash. Palpitation: Normal elasticity for age Abdomen: Abdomen is soft. Bowel sounds +. There is no abdominal tenderness, no guarding/rigidity no organomegaly. distended. s/p laparascopic surgery Psych: unable MSK: no joint tenderness or swelling. Digits and nails normal, no deformity : kidney or bladder not palpable Labs/imaging reviewed. Past medical history, past surgical history, family history, social history, allergy reviewed and noted as below Family hx: no hx of CKD. Rest non-contributory UA: 2+ protein and 2+ blood CT: left adnexal cyst. Objective - Vital Signs/Intake and Output Vital Signs (last 24 hours): Temp Pulse Resp BP Pulse Ox 98.2 F 82 22 127/51 L 83 L 05/02/17 12:00 05/02/17 12:02 05/02/17 12:02 05/02/17 12:02 05/02/17 12:02 Intake and Output: 05/02/17 05/02/17 06:59 18:59 Intake Total 1536 1114.4 Output Total 640 870 Balance 896 244.4 - Medications Medications: Current Medications Albuterol/Ipratropium (Duoneb 3 Mg/0.5 Mg (3 Ml) Ud) 3 ml INH RQ6 [facility] Last Admin: 05/02/17 14:13 Dose: 3 ml Calcium Acetate (Phoslo) 667 mg PO TID [facility] Last Admin: 05/02/17 13:32 Dose: 667 mg Furosemide (Lasix) 40 mg IVP Q12 [facility] Heparin Sodium (Porcine) (Heparin) 5,000 units SC Q8 [facility] Last Admin: 05/02/17 13:32 Dose: 5,000 units Hydromorphone HCl (Dilaudid) 0.5 mg IVP Q6H PRN PRN Reason: Pain, severe (8-10) Last Admin: 05/02/17 02:09 Dose: 0.5 mg Azithromycin 500 mg/ Sodium (Chloride) 250 mls @ 250 mls/hr IVPB Q24H [facility] Last Admin: 05/02/17 10:12 Dose: 250 mls/hr Linezolid (Zyvox 600mg/300ml D5w) 600 mg in 300 mls @ 300 mls/hr IVPB Q12H [facility] Last Admin: 05/02/17 11:58 Dose: 300 mls/hr Cefepime HCl (Maxipime Iv 1 Gm Premix) 1 gm in 50 mls @ 100 mls/hr IVPB Q12H [facility] Last Admin: 05/02/17 10:42 Dose: 100 mls/hr Midazolam HCl 100 mg/ Sodium (Chloride) 100 mls @ 1.32 mls/hr IV .Q24H [facility]; 0.02 MG/KG/HR PRN Reason: Protocol Last Titration: 05/02/17 03:00 Dose: 0 mg/kg/hr, 0 mls/hr Propofol (Diprivan) 1,000 mg in 100 mls @ 1.985 mls/hr IV .Q24H PRN; Protocol; 5 MCG/KG/MIN PRN Reason: TITRATE PER MD ORDER Last Admin: 05/02/17 11:57 Dose: 10 mcg/kg/min, 3.971 mls/hr Cisatracurium Besylate 100 mg/ (Sodium Chloride) 250 mls @ 4.97 mls/hr IV .Q24H ONE; 0.5 MCG/KG/MIN PRN Reason: Protocol Stop: 05/03/17 13:29 Lorazepam (Ativan) 2 mg IVP Q4H PRN PRN Reason: Anxiety Last Admin: 05/02/17 02:05 Dose: 2 mg Methylprednisolone (Solu-Medrol) 40 mg IVP Q8 [facility] Pantoprazole Sodium (Protonix Inj) 40 mg IVP DAILY [facility] Last Admin: 05/02/17 10:31 Dose: 40 mg Sodium Bicarbonate (Sodium Bicarbonate Tab) 1,300 mg PO QID [facility] Last Admin: 05/02/17 13:33 Dose: 1,300 mg Vitamin A (Vitamin A & D Oint Ud Foilpak) 1 ea TOP Q4 PRN PRN Reason: dry lips - Labs Labs: 05/02/17 06:40 05/02/17 06:37 PT 11.1 SECONDS (9.7-12.2) 05/01/17 06:17 INR 1.0 05/01/17 06:17 APTT 23 SECONDS (21-34) 05/01/17 06:17
--- NOTE | 2017-05-02 14:47 | CP.PCM.PN ---
Subjective - Date & Time of Evaluation Date of Evaluation: 05/02/17 Time of Evaluation: 10:00 - Subjective Subjective: General Surgery- Dr. Hollingsworth Pt seen and examined at bedside this AM. Currently on sedation, PRVC 18 5 450 100. ROS unobtainable. abd Incision C/D/I. abd tympanic Objective - Vital Signs/Intake and Output Vital Signs (last 24 hours): Temp Pulse Resp BP Pulse Ox 98.2 F 82 22 127/51 L 83 L 05/02/17 12:00 05/02/17 12:02 05/02/17 12:02 05/02/17 12:02 05/02/17 12:02 Intake and Output: 05/02/17 05/02/17 06:59 18:59 Intake Total 1536 1114.4 Output Total 640 870 Balance 896 244.4 - Medications Medications: Current Medications Albuterol/Ipratropium (Duoneb 3 Mg/0.5 Mg (3 Ml) Ud) 3 ml INH RQ6 [facility] Last Admin: 05/02/17 14:13 Dose: 3 ml Calcium Acetate (Phoslo) 667 mg PO TID [facility] Last Admin: 05/02/17 13:32 Dose: 667 mg Furosemide (Lasix) 40 mg IVP Q12 [facility] Heparin Sodium (Porcine) (Heparin) 5,000 units SC Q8 [facility] Last Admin: 05/02/17 13:32 Dose: 5,000 units Hydromorphone HCl (Dilaudid) 0.5 mg IVP Q6H PRN PRN Reason: Pain, severe (8-10) Last Admin: 05/02/17 02:09 Dose: 0.5 mg Azithromycin 500 mg/ Sodium (Chloride) 250 mls @ 250 mls/hr IVPB Q24H [facility] Last Admin: 05/02/17 10:12 Dose: 250 mls/hr Linezolid (Zyvox 600mg/300ml D5w) 600 mg in 300 mls @ 300 mls/hr IVPB Q12H [facility] Last Admin: 05/02/17 11:58 Dose: 300 mls/hr Cefepime HCl (Maxipime Iv 1 Gm Premix) 1 gm in 50 mls @ 100 mls/hr IVPB Q12H [facility] Last Admin: 05/02/17 10:42 Dose: 100 mls/hr Midazolam HCl 100 mg/ Sodium (Chloride) 100 mls @ 1.32 mls/hr IV .Q24H [facility]; 0.02 MG/KG/HR PRN Reason: Protocol Last Titration: 05/02/17 03:00 Dose: 0 mg/kg/hr, 0 mls/hr Propofol (Diprivan) 1,000 mg in 100 mls @ 1.985 mls/hr IV .Q24H PRN; Protocol; 5 MCG/KG/MIN PRN Reason: TITRATE PER MD ORDER Last Admin: 05/02/17 11:57 Dose: 10 mcg/kg/min, 3.971 mls/hr Cisatracurium Besylate 100 mg/ (Sodium Chloride) 250 mls @ 4.97 mls/hr IV .Q24H ONE; 0.5 MCG/KG/MIN PRN Reason: Protocol Stop: 05/03/17 13:29 Lorazepam (Ativan) 2 mg IVP Q4H PRN PRN Reason: Anxiety Last Admin: 05/02/17 02:05 Dose: 2 mg Methylprednisolone (Solu-Medrol) 40 mg IVP Q8 [facility] Pantoprazole Sodium (Protonix Inj) 40 mg IVP DAILY [facility] Last Admin: 05/02/17 10:31 Dose: 40 mg Sodium Bicarbonate (Sodium Bicarbonate Tab) 1,300 mg PO QID [facility] Last Admin: 05/02/17 13:33 Dose: 1,300 mg Vitamin A (Vitamin A & D Oint Ud Foilpak) 1 ea TOP Q4 PRN PRN Reason: dry lips - Labs Labs: 05/02/17 06:40 05/02/17 06:37 PT 11.1 SECONDS (9.7-12.2) 05/01/17 06:17 INR 1.0 05/01/17 06:17 APTT 23 SECONDS (21-34) 05/01/17 06:17 - Constitutional Appears: Non-toxic, No Acute Distress - Head Exam Head Exam: ATRAUMATIC - Eye Exam Eye Exam: EOMI - ENT Exam ENT Exam: Mucous Membranes Moist - Respiratory Exam Respiratory Exam: NORMAL BREATHING PATTERN. absent: Accessory Muscle Use, Respiratory Distress Additional comments: Intubated on PRVC - Cardiovascular Exam Cardiovascular Exam: +S1, +S2. absent: Bradycardia, Tachycardia - GI/Abdominal Exam GI & Abdominal Exam: Distended, Soft, Tenderness. absent: Firm, Guarding, Rigid Additional comments: distended abd soft, responds to palpation parallel to incision - Extremities Exam Extremities Exam: Normal Inspection. absent: Calf Tenderness - Neurological Exam Additional comments: on sedation - Skin Skin Exam: Intact, Warm Assessment and Plan - Assessment and Plan (Free Text) Assessment: 66F POD#2/ s/p diagnostic laparascopy with Left salpino-oopherectomy, left intubated on PRVC Plan: Pain control PRN IVF & Abx GI motility Monitor for bowel function vent and medical mgmt as per ICU & Primary teams GI/DVT ppx d/w Dr. Dr. [facility]
--- NOTE | 2017-05-02 17:41 | PN ---
DATE: LOCATION: ICU 7. SUBJECTIVE: This Is a 66-year-old female, seen and examined in rounds in the intensive care unit with periods of agitation and being restless, on Versed so far. No reported chest pain or palpitation, but had bowel movement with a small amount of fecal semi-soft material. The entire chart is reviewed including, but not limited to the most recent lab and radiology study results, current and previous medication list, current and the previous medical events. Case was discussed with at length. It has to be mentioned that the patient recently had more episodes of hypoxia and most recent chest x-ray done today. Official report is seen, indicative of diffuse bilateral infiltrate with possible pulmonary edema with small bilateral effusion. LABORATORY DATA: Today's lab showed white blood cells increased to 31.6, hemoglobin 9.5, hematocrit 28.5 with normal platelet count with abnormal ABGs with low CO2 content of 18 indicative of metabolic acidosis, BUN 61, creatinine 1.5, glucose 133, calcium 7.3, phosphorus 5.9, magnesium 2.4 with low albumin 2.8, low total protein 5.5. PHYSICAL EXAMINATION: GENERAL: This is a 66-year-old female, intubated to vent with NG tube in place, sedated. HEENT: Showed pale, dry oral mucoid membrane. Nonicteric sclerae. LUNGS: Few scattered crepitations, decreased air entry at bases. HEART: Positive S1 and S2. ABDOMEN: Soft with mild distention with clean dressing. EXTREMITIES: With lower extremity edematous changes. No clubbing or cyanosis. NEUROLOGIC: No reported new neurological deficits, sensory or motor. IMPRESSION: 1. Pneumonia, respiratory failure, the patient is intubated to vent with pleural effusion. Congestive heart failure by radiological results. 2. Acute renal insufficiency, slightly improving. 3. Known history of hypertension. 4. Hyperlipidemia. 5. Reported history of colon polyps. 6. Anemia secondary to above. 7. Electrolyte imbalance with hyponatremia, hypokalemia, and hyperphosphatemia, mildly improved. 8. Malnutrition with hypoalbuminemia. 9. Left adnexal mass by radiology studies and results. SUGGESTION: 1. Agree with your plan. 2. Peripheral hyperalimentation. 3. Repeat stool for occult blood. 4. No need for aggressive workup in the meantime. 5. The patient had upper endoscopy prior to her admission to the intensive care unit. 6. Further recommendation to follow. Shantel Lakhani MD
--- NOTE | 2017-05-02 18:27 | PCM.PROC ---
Procedures Attestation:: I certify that I have explained the specified Operation(s) or Procedure(s), risks, benefits and reasonable alternatives to the Patient and/or other person responsible. The opportunity was given to ask questions and all questions answered - Central Line Placement Right Internal Jugular Triple Lumen Catheter Aseptic technique was employed throughout the procedure: Hand Hygiene done prior to procedure, Full sterile barriers (mask, hair cover, sterile gown, sterile gloves), Full body sterile drape, Chloraprep Antiseptic: 30 second prep for IJ or SC sites CVP Time Out Performed: Yes Pt. Placed on Pulse Ox Monitor: Yes Central Line Prep: Chlorhexidine-Alcohol Combination Local Anesthesia Used: Lidocaine 1% Amount of Anesthesia Used (mls): 3 Ultrasound Used for Placement: Yes Central Line Lumen Inserted: triple Central Line Length: 16 cm Post Procedure: Sutured in Place, Good Blood Return, All Ports Aspirated, Flushed, Capped, Sterile Dressing Applied Secured by: Suture Post procedure dressing: Chlorhexidine disc (Biopatch) Post Procedure X-Ray: Yes Patient Tolerated Procedure: Well
[2017-05-03] MEDS: Albuterol-Ipratrop 3 mg / 0.5 (3 ml) UD INH SCH ×4 (02:27→21:07)
[2017-05-03] MEDS: Propofol 10 mg/ml 1,000 MG/100 ML VIAL IV PRN ×2 (03:09→09:08)
[2017-05-03] MEDS: MethylPREDNISolone 40 mg Vial IVP SCH ×3 (05:33→22:28)
[2017-05-03 06:01] LABS: ABG ALLEN TEST POS; ARTERIAL BLOOD GAS HCO3 20.7 mmol/L (21-28); ARTERIAL BLOOD GAS HEMOGLOBIN 16.1 g/dL (11.7-17.4); ARTERIAL BLOOD GAS O2 SAT 98.2 % (95-98); ARTERIAL BLOOD GAS PCO2 44 mm/Hg (35-45); ARTERIAL BLOOD GAS PH 7.29 (7.35-7.45); ARTERIAL BLOOD GAS PO2 105 mm/Hg (80-100); ARTERIAL BLOOD GAS TCO2 22.6 mmol/L (22-28)
[2017-05-03 06:33] LABS: ALBUMIN 2.5 g/dL (3.5-5.0); CALCIUM 7.3 mg/dl (8.6-10.4)
[2017-05-03 06:36] LABS: BASO % 0.2 % (0.0-2.0); HEMOGLOBIN 8.5 g/dL (11.0-16.0); LYMPH # 0.5 K/uL (1.0-4.3); LYMPH % 2.1 % (20.0-40.0); MEAN CELL VOLUME 84.8 fL (81.0-99.0); MEAN CORPUSCULAR HEMOGLOBIN 27.8 pg (27.0-31.0); MEAN CORPUSCULAR HGB CONC 32.8 g/dL (33.0-37.0); MEAN PLATELET VOLUME 8.6 fL (7.2-11.7); MONO # 0.6 K/uL (0.0-0.8); MONO % 2.6 % (0.0-10.0); NEUT # 21.2 K/uL (1.8-7.0); NEUT % 95.1 % (50.0-75.0); PLATELET COUNT 302 K/uL (130-400); RBC 3.04 Mil/uL (3.80-5.20); RED CELL DISTRIBUTION WIDTH 15.2 % (11.5-14.5); WHITE BLOOD COUNT 22.3 K/uL (4.8-10.8)
[2017-05-03 08:18] LABS: ANISOCYTOSIS SLIGHT; LYMPHOCYTE 2 % (20-40); MONOCYTE 1 % (0-10); NEUTROPHIL 97 % (50-75); PLATELET ESTIMATE NORMAL (NORMAL); TOTAL CELLS COUNTED 100
[2017-05-03 08:19] LABS: HYPOCHROMIC SLIGHT
--- NOTE | 2017-05-03 08:48 | RAD ---
Chest x-ray single frontal view History: Pneumonia. Comparison: 05/02/2017 Findings: Lines and tubes in stable position. Prominent interval improvement of aeration in both lung watts. Persistent consolidative changes seen at the right upper lung zone and left lung base. More linear consolidations seen in left upper to mid lung zone and right lung base. Trace bilateral pleural effusions. Biapical pleural thickening with upper lobe granulomatous changes. Cardiomegaly. Degenerative changes in the spine and shoulders. Impression: Lines and tubes in stable position. Prominent interval improvement of aeration in both lung watts. Persistent consolidative changes seen at the right upper lung zone and left lung base. More linear consolidations seen in left upper to mid lung zone and right lung base. Trace bilateral pleural effusions. Biapical pleural thickening with upper lobe granulomatous changes. Cardiomegaly.
[2017-05-03] MEDS: Azithromycin 500 MG in Sodium Chloride 0.9% 250 ML IVPB SCH (11:34)
--- NOTE | 2017-05-03 11:42 | CP.PCM.PN ---
Subjective - Date & Time of Evaluation Date of Evaluation: 05/03/17 Time of Evaluation: 11:39 - Subjective Subjective: Follow up Nephrology Consultation: Assessment: critical Pulmonary edema ? ARDS with acute respi failure Hypokalemia, combined respi and metabolic acidosis Acute Kidney Injury (N17.9) ? etiology. possible ATN: improved Hyponatremia likely multi-factorial: thiazide diuretics, hypotonic fluids ? Increased stimulation of ADH from pelvic pathology concerning for neoplasm Anemia, s/p left nephrectomy for stones active smoker HTN, hyperlipidemia, adnexal mass ascites, hypoalbuminemia Nephrotic syndrome with 3.5 gram proteinuria amd microscopic hematuria. differential include (MPGN due to Hep C, FSGS due to solitary kidney, Membranous nephropathy possibly due to undiagnosed malignancy) Cecal thickening on CT scan heterogenous nodular liver with ascites and hx of Hep C ? cirrhosis Plan No acute need for renal replacement therapy at this time. UOP and s creat better Hypertension control with meds as ordered. Patient not on ACEI/ARB due to TONA. Monitor Input/Output, daily weights and renal function with basic metabolic panel continue with lasix 40 mg IV BID if stable hemodynamics. may give extra doses if needed continue with sodium bicarb 1300 mg qid, will be able to lower it down soon if continue to improve. supplement electrolytes as needed She is not a candidate for kidney biopsy at present due to solitary kidney and pending oncologic work up, acute illness. check RA factor and cryoglobulins as well Dose meds/antibiotics for improved GFR. Avoid fleets enema/magnesium based laxatives. Avoid nephrotoxins/NSAIDs/ iodinated contrast (unless needed emergently) Glycemic control Further work up/management as per primary team Thanks for allowing me to participate in care of your patient. Will follow patient with you. Please call if any Qs. d/w team and daughter Scott Andrade Office: [phone] reason for consult: TONA and hyponatremia HPI: Pt is a 66 F with hx of hypertension (years), smoker presented with complaints of abdomen pain and leg swelling, found to have ascites and left adnexal cystic mass, renal consult for TONA and hyponatremia. pt also reports hx of left nephrectomy for kidney stones she has een on HCTZ and also was receiving hypotonic fluids as D5/0.45% saline Denies OTC/herbal meds or NSAIDs No recent iodinated contrast exposure. No obvious episodes of low BP. ROS: unable pt intubated/ went to OR 04/30/17 for expl lap s/p left oopherectomy Physical Examination: General Appearance: intubated Vitals reviewed and noted as below Head; Atraumatic, normocephalic ENT: intubated Neck; supple no lymphadenopathy, no thyromegaly or bruit Lungs: improved respiratory rate/effort. Breath sounds bilateral clear anteriorly Heart:decreased rate. s1s2 normal. No rub or gallop. Extremities: 1+ edema. No varicose veins Neurological: Patient is sedated. Skin: Warm and dry. Normal turgor. No rash. Palpitation: Normal elasticity for age Abdomen: Abdomen is soft. Bowel sounds +. There is no abdominal tenderness, no guarding/rigidity no organomegaly. distended. s/p laparascopic surgery Psych: unable MSK: no joint tenderness or swelling. Digits and nails normal, no deformity : kidney or bladder not palpable Labs/imaging reviewed. Past medical history, past surgical history, family history, social history, allergy reviewed and noted as below Family hx: no hx of CKD. Rest non-contributory UA: 2+ protein and 2+ blood CT: left adnexal cyst. Objective - Vital Signs/Intake and Output Vital Signs (last 24 hours): Temp Pulse Resp BP Pulse Ox 97.9 F 72 20 137/45 L 100 05/03/17 04:00 05/03/17 07:02 05/03/17 07:02 05/03/17 09:12 05/03/17 07:02 Intake and Output: 05/03/17 05/03/17 06:59 18:59 Intake Total 914.3 309 Output Total 525 35 Balance 389.3 274 - Medications Medications: Current Medications Albuterol/Ipratropium (Duoneb 3 Mg/0.5 Mg (3 Ml) Ud) 3 ml INH RQ6 [facility] Last Admin: 05/03/17 07:42 Dose: 3 ml Calcium Acetate (Phoslo) 667 mg PO TID [facility] Last Admin: 05/03/17 09:12 Dose: 667 mg Furosemide (Lasix) 40 mg IVP Q12 [facility] Last Admin: 05/03/17 09:12 Dose: 40 mg Heparin Sodium (Porcine) (Heparin) 5,000 units SC Q8 [facility] Last Admin: 05/03/17 05:33 Dose: 5,000 units Hydromorphone HCl (Dilaudid) 0.5 mg IVP Q6H PRN PRN Reason: Pain, severe (8-10) Last Admin: 05/02/17 02:09 Dose: 0.5 mg Azithromycin 500 mg/ Sodium (Chloride) 250 mls @ 250 mls/hr IVPB Q24H [facility] Last Admin: 05/03/17 11:34 Dose: 250 mls/hr Linezolid (Zyvox 600mg/300ml D5w) 600 mg in 300 mls @ 300 mls/hr IVPB Q12H [facility] Last Admin: 05/02/17 23:41 Dose: 300 mls/hr Cefepime HCl (Maxipime Iv 1 Gm Premix) 1 gm in 50 mls @ 100 mls/hr IVPB Q12H [facility] Last Admin: 05/02/17 23:40 Dose: 100 mls/hr Midazolam HCl 100 mg/ Sodium (Chloride) 100 mls @ 1.32 mls/hr IV .Q24H [facility]; 0.02 MG/KG/HR PRN Reason: Protocol Last Admin: 05/02/17 23:35 Dose: Not Given Propofol (Diprivan) 1,000 mg in 100 mls @ 1.985 mls/hr IV .Q24H PRN; Protocol; 5 MCG/KG/MIN PRN Reason: TITRATE PER MD ORDER Last Admin: 05/03/17 09:08 Dose: 40.29 mcg/kg/min, 16 mls/hr Cisatracurium Besylate 100 mg/ (Sodium Chloride) 250 mls @ 4.97 mls/hr IV .Q24H [facility]; 0.5 MCG/KG/MIN PRN Reason: Protocol Stop: 05/03/17 13:29 Last Titration: 05/03/17 10:05 Dose: 0 mcg/kg/min, 0 mls/hr Potassium Chloride (Potassium Chloride 20 Meq/100 Ml) 20 meq in 100 mls @ 50 mls/hr IVPB ONCE ONE Stop: 05/03/17 12:59 Last Admin: 05/03/17 10:13 Dose: 50 mls/hr Potassium Chloride (Potassium Chloride 20 Meq/100 Ml) 20 meq in 100 mls @ 50 mls/hr IVPB ONCE ONE Stop: 05/03/17 15:59 Insulin Aspart (Novolog) 0 unit SC Q6 [facility] PRN Reason: Protocol Lorazepam (Ativan) 2 mg IVP Q4H PRN PRN Reason: Anxiety Last Admin: 05/02/17 02:05 Dose: 2 mg Methylprednisolone (Solu-Medrol) 40 mg IVP Q8 [facility] Last Admin: 05/03/17 05:33 Dose: 40 mg Pantoprazole Sodium (Protonix Inj) 40 mg IVP DAILY [facility] Last Admin: 05/03/17 09:12 Dose: 40 mg Sodium Bicarbonate (Sodium Bicarbonate Tab) 1,300 mg PO QID [facility] Last Admin: 05/03/17 09:12 Dose: 1,300 mg Vitamin A (Vitamin A & D Oint Ud Foilpak) 1 ea TOP Q4 PRN PRN Reason: dry lips - Labs Labs: 05/03/17 06:07 05/03/17 06:05 PT 11.1 SECONDS (9.7-12.2) 05/01/17 06:17 INR 1.0 05/01/17 06:17 APTT 23 SECONDS (21-34) 05/01/17 06:17
[2017-05-03] MEDS: (Novolog) Insulin Aspart, Recombinant 100 u/ml 10 ml vial SC SCH ×2 (12:31→17:46)
[2017-05-03] MEDS: Cefepime IV 1 gm in Dextrose 1 GM/50 ML BAG IVPB SCH ×2 (12:31→23:30)
[2017-05-03] MEDS: Linezolid 600 mg in D5W 300 ml 600 MG/300 ML BAG IVPB SCH (12:55)
[2017-05-03 14:52] LABS: ANCA SCREEN NEGATIVE (NEGATIVE)
--- NOTE | 2017-05-03 15:33 | CP.PCM.PN ---
Subjective - Date & Time of Evaluation Date of Evaluation: 05/03/17 Time of Evaluation: 07:30 - Subjective Subjective: General surgery progress note for Dr. Nery Pulliam, PGY-1 Pt S & E at bedside. Intubated, sedated. PRVC RR 20, TV 450, PEEP 12, FiO2 100%. No acute events overnight Objective - Vital Signs/Intake and Output Vital Signs (last 24 hours): Temp Pulse Resp BP Pulse Ox 97.9 F 72 20 137/45 L 100 05/03/17 04:00 05/03/17 07:02 05/03/17 07:02 05/03/17 09:12 05/03/17 07:02 Intake and Output: 05/03/17 05/03/17 06:59 18:59 Intake Total 914.3 334 Output Total 525 35 Balance 389.3 299 - Medications Medications: Current Medications Albuterol/Ipratropium (Duoneb 3 Mg/0.5 Mg (3 Ml) Ud) 3 ml INH RQ6 [facility] Last Admin: 05/03/17 13:39 Dose: 3 ml Calcium Acetate (Phoslo) 667 mg PO TID [facility] Last Admin: 05/03/17 13:01 Dose: 667 mg Furosemide (Lasix) 40 mg IVP Q12 [facility] Last Admin: 05/03/17 09:12 Dose: 40 mg Heparin Sodium (Porcine) (Heparin) 5,000 units SC Q8 [facility] Last Admin: 05/03/17 13:00 Dose: 5,000 units Hydromorphone HCl (Dilaudid) 0.5 mg IVP Q6H PRN PRN Reason: Pain, severe (8-10) Last Admin: 05/02/17 02:09 Dose: 0.5 mg Linezolid (Zyvox 600mg/300ml D5w) 600 mg in 300 mls @ 300 mls/hr IVPB Q12H [facility] Last Admin: 05/03/17 12:55 Dose: 300 mls/hr Cefepime HCl (Maxipime Iv 1 Gm Premix) 1 gm in 50 mls @ 100 mls/hr IVPB Q12H [facility] Last Admin: 05/03/17 12:31 Dose: 100 mls/hr Midazolam HCl 100 mg/ Sodium (Chloride) 100 mls @ 1.32 mls/hr IV .Q24H [facility]; 0.02 MG/KG/HR PRN Reason: Protocol Last Admin: 05/02/17 23:35 Dose: Not Given Propofol (Diprivan) 1,000 mg in 100 mls @ 1.985 mls/hr IV .Q24H PRN; Protocol; 5 MCG/KG/MIN PRN Reason: TITRATE PER MD ORDER Last Titration: 05/03/17 11:15 Dose: 15 mcg/kg/min, 5.956 mls/hr Potassium Chloride (Potassium Chloride 20 Meq/100 Ml) 20 meq in 100 mls @ 50 mls/hr IVPB ONCE ONE Stop: 05/03/17 15:59 Last Admin: 05/03/17 13:01 Dose: 50 mls/hr Insulin Aspart (Novolog) 0 unit SC Q6 [facility] PRN Reason: Protocol Last Admin: 05/03/17 12:31 Dose: 1 unit Lorazepam (Ativan) 2 mg IVP Q4H PRN PRN Reason: Anxiety Last Admin: 05/02/17 02:05 Dose: 2 mg Methylprednisolone (Solu-Medrol) 40 mg IVP Q8 [facility] Last Admin: 05/03/17 13:03 Dose: 40 mg Pantoprazole Sodium (Protonix Inj) 40 mg IVP DAILY [facility] Last Admin: 05/03/17 09:12 Dose: 40 mg Sodium Bicarbonate (Sodium Bicarbonate Tab) 1,300 mg PO QID [facility] Last Admin: 05/03/17 13:02 Dose: 1,300 mg Vitamin A (Vitamin A & D Oint Ud Foilpak) 1 ea TOP Q4 PRN PRN Reason: dry lips - Labs Labs: 05/03/17 06:07 05/03/17 06:05 PT 11.1 SECONDS (9.7-12.2) 05/01/17 06:17 INR 1.0 05/01/17 06:17 APTT 23 SECONDS (21-34) 05/01/17 06:17 - Constitutional Appears: Non-toxic, No Acute Distress - Head Exam Head Exam: ATRAUMATIC, NORMAL INSPECTION, NORMOCEPHALIC - Eye Exam Eye Exam: EOMI, Normal appearance - ENT Exam ENT Exam: Mucous Membranes Dry (ET tube in place, feeding tube in place) - Respiratory Exam Respiratory Exam: NORMAL BREATHING PATTERN (on mech vent) - Cardiovascular Exam Cardiovascular Exam: REGULAR RHYTHM, +S1, +S2 - GI/Abdominal Exam GI & Abdominal Exam: Distended (mild, improved), Soft. absent: Firm, Guarding, Rigid Additional comments: surgical sites with glue in place, no erythema or fluctuance or drainage - Extremities Exam Extremities Exam: Normal Inspection - Neurological Exam Neurological Exam: absent: Alert, Awake, Oriented x3 Additional comments: intubated, sedated - Skin Skin Exam: Dry, Intact, Normal Color, Warm Assessment and Plan - Assessment and Plan (Free Text) Assessment: 66F POD#3 s/p diagnostic laparascopy with Left salpino-oopherectomy, left intubated on PRVC Plan: Pain control PRN Cont IVF Cont IV Abx Monitor for bowel function vent and medical mgmt as per ICU & Primary teams GI/DVT ppx DW attending Shahsa, PGY-1
--- NOTE | 2017-05-03 16:38 | CP.CCUPN ---
<Alcon Cornejo - Last Filed: 05/03/17 16:36> CCU Subjective - Physician Review Subjective (Free Text): Patient seen and examined. Intubated and sedated. ROS not obtainable. Urine culture positive for VRE - started on zyvox, cefepime and azithromycin. OGT placed and on tubefeeds. Saturating 100% on vent. CXR much improved today. Receiving lasix with good urinary output. Will taper off paralytics and sedatives. Will try pressure support trial. CCU Objective - Vital Signs / Intake & Output Intake and Output (Last 8hrs): Intake & Output 05/03/17 05/03/17 05/03/17 06:59 14:59 22:59 Intake Total 572 334 Output Total 390 35 Balance 182 299 Intake: IV 100 275 Intake, IV Amount 192 24 Right Proximal Port 128 16 Internal Jugular Right Proximal TLC 64 8 Tube Feeding 280 35 Output: Urine 390 35 Urethral (Ram[place]) 390 35 Other: # Bowel Movements 1 - Physical Exam Other physical findings (Free Text): - Constitutional Appears: intubated, altered, non-responsive to verbal stimuli - Head Exam Head Exam: ATRAUMATIC, NORMAL INSPECTION, NORMOCEPHALIC - ENT Exam ENT Exam: Mucous Membranes Moist, Normal Exam - Respiratory Exam Respiratory Exam: Rhonchi (mild), NORMAL BREATHING PATTERN. absent: Accessory Muscle Use, Respiratory Distress - Cardiovascular Exam Cardiovascular Exam: REGULAR RHYTHM - GI/Abdominal Exam GI & Abdominal Exam: Distended (mildly), Guarding (lower quadrants), Soft, Tenderness. absent: Firm, Rebound - Extremities Exam Extremities Exam: Full ROM, Normal Inspection - Neurological Exam Neurological Exam: Altered, not awake - Skin Skin Exam: Dry, Intact, Normal Color, Warm - Medications Active Medications: Active Medications Generic Name Dose Route Start Last Admin Trade Name Freq PRN Reason Stop Dose Admin Albuterol/Ipratropium 3 ml 04/27/17 20:00 05/03/17 13:39 Duoneb 3 Mg/0.5 Mg (3 Ml) Ud INH 3 ml RQ6 ALEX Administration Calcium Acetate 667 mg 04/30/17 14:00 05/03/17 13:01 Phoslo PO 667 mg TID ALEX Administration Furosemide 40 mg 05/02/17 14:45 05/03/17 09:12 Lasix IVP 40 mg Q12 ALEX Administration Heparin Sodium (Porcine) 5,000 units 05/01/17 14:00 05/03/17 13:00 Heparin SC 5,000 units Q8 ALEX Administration Hydromorphone HCl 0.5 mg 04/30/17 14:10 05/02/17 02:09 Dilaudid IVP 0.5 mg Q6H PRN Administration Pain, severe (8-10) Linezolid 600 mg in 300 mls @ 300 mls/hr 05/01/17 12:00 05/03/17 12:55 Zyvox 600mg/300ml D5w IVPB 300 mls/hr Q12H ALEX Administration Cefepime HCl 1 gm in 50 mls @ 100 mls/hr 05/01/17 11:30 05/03/17 12:31 Maxipime Iv 1 Gm Premix IVPB 100 mls/hr Q12H ALEX Administration Midazolam HCl 100 mg/ Sodium 100 mls @ 1.32 mls/hr 05/01/17 23:45 05/02/17 23 :35 Chloride IV Not Given .Q24H ALEX Protocol 0.02 MG/KG/HR Propofol 1,000 mg in 100 mls @ 1.985 mls/hr 05/02/17 02:14 05/03/17 11:15 Diprivan IV 15 mcg/kg/min .Q24H PRN 5.956 mls/hr TITRATE PER MD ORDER Titration Protocol 5 MCG/KG/MIN Insulin Aspart 0 unit 05/03/17 12:00 05/03/17 12:31 Novolog SC 1 unit Q6 ALEX Administration Protocol Lorazepam 2 mg 05/01/17 21:54 05/02/17 02:05 Ativan IVP 2 mg Q4H PRN Administration Anxiety Methylprednisolone 40 mg 05/02/17 22:00 05/03/17 13:03 Solu-Medrol IVP 40 mg Q8 ALEX Administration Pantoprazole Sodium 40 mg 05/01/17 10:00 05/03/17 09:12 Protonix Inj IVP 40 mg DAILY ALEX Administration Sodium Bicarbonate 1,300 mg 04/29/17 10:00 05/03/17 13:02 Sodium Bicarbonate Tab PO 1,300 mg QID ALEX Administration Vitamin A 1 ea 05/01/17 12:38 Vitamin A & D Oint Ud Foilpak TOP Q4 PRN dry lips - Patient Studies Lab Studies: Microbiology Studies 05/01/17 Unknown Gram Stain - Final Trachasp Sputum Culture - Final Yeast Species 04/30/17 18:35 Gram Stain - Final Sputum Sputum Culture - Final Yeast Species Lab Studies 05/03/17 05/03/17 05/03/17 Range/Units 12:08 06:07 06:05 WBC 22.3 H (4.8-10.8) K/uL RBC 3.04 L (3.80-5.20) Mil/uL Hgb 8.5 L (11.0-16.0) g/dL Hct 25.8 L (34.0-47.0) % MCV 84.8 (81.0-99.0) fL MCH 27.8 (27.0-31.0) pg MCHC 32.8 L (33.0-37.0) g/dL RDW 15.2 H (11.5-14.5) % Plt Count 302 (130-400) K/uL MPV 8.6 (7.2-11.7) fL Neut % (Auto) 95.1 H (50.0-75.0) % Lymph % (Auto) 2.1 L (20.0-40.0) % [place] % (Auto) 2.6 (0.0-10.0) % Eos % (Auto) 0.0 (0.0-4.0) % Baso % (Auto) 0.2 (0.0-2.0) % Neut # (Auto) 21.2 H (1.8-7.0) K/uL Lymph # (Auto) 0.5 L (1.0-4.3) K/uL [place] # (Auto) 0.6 (0.0-0.8) K/uL Eos # (Auto) 0.0 (0.0-0.7) K/uL Baso # (Auto) 0.0 (0.0-0.2) K/uL Neutrophils % (Manual) 97 H (50-75) % Lymphocytes % (Manual) 2 L (20-40) % Monocytes % (Manual) 1 (0-10) % Platelet Estimate Normal (NORMAL) Hypochromasia (manual) Slight Anisocytosis (manual) Slight Puncture Site pCO2 (35-45) mm/Hg pO2 (80-100) mm/Hg HCO3 (21-28) mmol/L ABG pH (7.35-7.45) ABG Total CO2 (22-28) mmol/L ABG O2 Saturation (95-98) % ABG Base Excess (-2.0-3.0) mmol/L ABG Hemoglobin (11.7-17.4) g/dL ABG Carboxyhemoglobin (0.5-1.5) % POC ABG HHb (Measured) (0.0-5.0) % ABG Methemoglobin (0.0-3.0) % Pierre Test A-a O2 Difference mm/Hg Respiratory Index Hgb O2 Saturation (95.0-98.0) % Vent Mode Mechanical Rate FiO2 % Tidal Volume PEEP Sodium 136 (132-148) mmol/L Potassium 3.1 L (3.6-5.2) mmol/L Chloride 101 (98-107) mmol/L Carbon Dioxide 23 (22-30) mmol/L Anion Gap 15 (10-20) BUN 60 H (7-17) mg/dL Creatinine 1.3 H (0.7-1.2) mg/dL Est GFR ( Amer) 49 Est GFR (Non-Af Amer) 41 POC Glucose (mg/dL) 164 H (65-110) mg/dL Random Glucose 202 H (65-105) mg/dL Calcium 7.3 L (8.6-10.4) mg/dl Phosphorus 4.4 (2.5-4.5) mg/dL Magnesium 2.4 H (1.6-2.3) mg/dL Total Bilirubin 0.3 (0.2-1.3) mg/dL AST 32 (14-36) U/L ALT 51 (9-52) U/L Alkaline Phosphatase 117 (38-126) U/L Total Protein 5.1 L (6.3-8.3) g/dL Albumin 2.5 L (3.5-5.0) g/dL Globulin 2.6 (2.2-3.9) gm/dL Albumin/Globulin Ratio 1.0 (1.0-2.1) ANCA Screen (NEGATIVE) c-ANCA Titer Proteinase 3 (PR3) (<1.0) AI p-ANCA Titer Atypical p-ANCA Titer Myeloperoxidase Ab (<1.0) AI 05/03/17 04/30/17 Range/Units 05:23 07:43 WBC (4.8-10.8) K/uL RBC (3.80-5.20) Mil/uL Hgb (11.0-16.0) g/dL Hct (34.0-47.0) % MCV (81.0-99.0) fL MCH (27.0-31.0) pg MCHC (33.0-37.0) g/dL RDW (11.5-14.5) % Plt Count (130-400) K/uL MPV (7.2-11.7) fL Neut % (Auto) (50.0-75.0) % Lymph % (Auto) (20.0-40.0) % [place] % (Auto) (0.0-10.0) % Eos % (Auto) (0.0-4.0) % Baso % (Auto) (0.0-2.0) % Neut # (Auto) (1.8-7.0) K/uL Lymph # (Auto) (1.0-4.3) K/uL [place] # (Auto) (0.0-0.8) K/uL Eos # (Auto) (0.0-0.7) K/uL Baso # (Auto) (0.0-0.2) K/uL Neutrophils % (Manual) (50-75) % Lymphocytes % (Manual) (20-40) % Monocytes % (Manual) (0-10) % Platelet Estimate (NORMAL) Hypochromasia (manual) Anisocytosis (manual) Puncture Site Rr pCO2 44 (35-45) mm/Hg pO2 105 H (80-100) mm/Hg HCO3 20.7 L (21-28) mmol/L ABG pH 7.29 L (7.35-7.45) ABG Total CO2 22.6 (22-28) mmol/L ABG O2 Saturation 98.2 H (95-98) % ABG Base Excess -5.4 L (-2.0-3.0) mmol/L ABG Hemoglobin 16.1 (11.7-17.4) g/dL ABG Carboxyhemoglobin 1.2 (0.5-1.5) % POC ABG HHb (Measured) 1.8 (0.0-5.0) % ABG Methemoglobin 1.2 (0.0-3.0) % Pierre Test Pos A-a O2 Difference 553.0 mm/Hg Respiratory Index 5.3 Hgb O2 Saturation 95.8 (95.0-98.0) % Vent Mode Prvc Mechanical Rate 20 FiO2 100.0 % Tidal Volume 450 PEEP 12 Sodium (132-148) mmol/L Potassium (3.6-5.2) mmol/L Chloride (98-107) mmol/L Carbon Dioxide (22-30) mmol/L Anion Gap (10-20) BUN (7-17) mg/dL Creatinine (0.7-1.2) mg/dL Est GFR ( Amer) Est GFR (Non-Af Amer) POC Glucose (mg/dL) (65-110) mg/dL Random Glucose (65-105) mg/dL Calcium (8.6-10.4) mg/dl Phosphorus (2.5-4.5) mg/dL Magnesium (1.6-2.3) mg/dL Total Bilirubin (0.2-1.3) mg/dL AST (14-36) U/L ALT (9-52) U/L Alkaline Phosphatase (38-126) U/L Total Protein (6.3-8.3) g/dL Albumin (3.5-5.0) g/dL Globulin (2.2-3.9) gm/dL Albumin/Globulin Ratio (1.0-2.1) ANCA Screen Negative (NEGATIVE) c-ANCA Titer TNP Proteinase 3 (PR3) <1.0 (<1.0) AI p-ANCA Titer TNP Atypical p-ANCA Titer TNP Myeloperoxidase Ab <1.0 (<1.0) AI Laboratory Results - last 24 hr 04/30/17 05/03/17 05/03/17 07:43 05:23 06:05 WBC RBC Hgb Hct MCV MCH MCHC RDW Plt Count MPV Neut % (Auto) Lymph % (Auto) [place] % (Auto) Eos % (Auto) Baso % (Auto) Neut # (Auto) Lymph # (Auto) [place] # (Auto) Eos # (Auto) Baso # (Auto) Neutrophils % (Manual) Lymphocytes % (Manual) Monocytes % (Manual) Platelet Estimate Hypochromasia (manual) Anisocytosis (manual) Puncture Site Rr pCO2 44 pO2 105 H HCO3 20.7 L ABG pH 7.29 L ABG Total CO2 22.6 ABG O2 Saturation 98.2 H ABG Base Excess -5.4 L ABG Hemoglobin 16.1 ABG Carboxyhemoglobin 1.2 POC ABG HHb (Measured) 1.8 ABG Methemoglobin 1.2 Pierre Test Pos A-a O2 Difference 553.0 Respiratory Index 5.3 Hgb O2 Saturation 95.8 Vent Mode Prvc Mechanical Rate 20 FiO2 100.0 Tidal Volume 450 PEEP 12 Sodium 136 Potassium 3.1 L Chloride 101 Carbon Dioxide 23 Anion Gap 15 BUN 60 H Creatinine 1.3 H Est GFR ( Amer) 49 Est GFR (Non-Af Amer) 41 POC Glucose (mg/dL) Random Glucose 202 H Calcium 7.3 L Phosphorus 4.4 Magnesium 2.4 H Total Bilirubin 0.3 AST 32 ALT 51 Alkaline Phosphatase 117 Total Protein 5.1 L Albumin 2.5 L Globulin 2.6 Albumin/Globulin Ratio 1.0 ANCA Screen Negative c-ANCA Titer TNP Proteinase 3 (PR3) <1.0 p-ANCA Titer TNP Atypical p-ANCA Titer TNP Myeloperoxidase Ab <1.0 05/03/17 05/03/17 06:07 12:08 WBC 22.3 H RBC 3.04 L Hgb 8.5 L Hct 25.8 L MCV 84.8 MCH 27.8 MCHC 32.8 L RDW 15.2 H Plt Count 302 MPV 8.6 Neut % (Auto) 95.1 H Lymph % (Auto) 2.1 L [place] % (Auto) 2.6 Eos % (Auto) 0.0 Baso % (Auto) 0.2 Neut # (Auto) 21.2 H Lymph # (Auto) 0.5 L [place] # (Auto) 0.6 Eos # (Auto) 0.0 Baso # (Auto) 0.0 Neutrophils % (Manual) 97 H Lymphocytes % (Manual) 2 L Monocytes % (Manual) 1 Platelet Estimate Normal Hypochromasia (manual) Slight Anisocytosis (manual) Slight Puncture Site pCO2 pO2 HCO3 ABG pH ABG Total CO2 ABG O2 Saturation ABG Base Excess ABG Hemoglobin ABG Carboxyhemoglobin POC ABG HHb (Measured) ABG Methemoglobin Pierre Test A-a O2 Difference Respiratory Index Hgb O2 Saturation Vent Mode Mechanical Rate FiO2 Tidal Volume PEEP Sodium Potassium Chloride Carbon Dioxide Anion Gap BUN Creatinine Est GFR ( Amer) Est GFR (Non-Af Amer) POC Glucose (mg/dL) 164 H Random Glucose Calcium Phosphorus Magnesium Total Bilirubin AST ALT Alkaline Phosphatase Total Protein Albumin Globulin Albumin/Globulin Ratio ANCA Screen c-ANCA Titer Proteinase 3 (PR3) p-ANCA Titer Atypical p-ANCA Titer Myeloperoxidase Ab Fingerstick Blood Sugar Results: 164 Review of Systems - Review of Systems Systems not reviewed;Unavailable: Intubated Assessment/Plan - Assessment and Plan (Free Text) Assessment: 66F w/ascites as seen on CT of abdomen, pelvic mass: ID: [id number] due to aspiration pneumonia which occurred post diagnostic laparoscopy and left salpingo-oopherectomyLeukocytosis, UTI Infectious Disease, Dr Grant on board General Surgery Dr Hollingsworth on board POD#3/ s/p diagnostic laparascopy with Left salpino-oopherectomy with Dr Hollingsworth 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 Azithromycin 500mg IV QD started 05/01/17 Zyvox 600mg IV BID started 05/01/17 Cefepime 1g IV BID started 05/01/17 Follow up mycoplasma Legionella NEGATIVE Procalcitonin HIGH Albumin 15% 12.5gm x 3 given on 05/01/17 Cardio: hx of diastolic heart failure, HTN, HLD 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 Mitchell 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 differential include (MPGN due to Hep C, FSGS due to solitary kidney, Membranous nephropathy possibly due to undiagnosed malignancy) will check anca/dna ab as proteinuria and microscopic hematuria on UA Sodium Bicarb 1,300 mg PO QID Phoslo 667mg PO TID Lasix 40mg IV BID 500mL fluid challenge 05/01/17 neuro: Dilaudid 0.5mg IV Q4H PRN for pain control Electrolytes: hyponatremia Fish Receiver Dr Andrade on board Hyponatremia likely multi-factorial: thiazide diuretics, hypotonic fluids ? 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 Dr Barajas consulted - signed off POD#3/ s/p diagnostic laparascopy with Left salpino-oopherectomy with Dr Hollingsworth PPx: Protonix 40mg PO QD Heparin 5,000 units <Dawood Ramirez - Last Filed: 05/03/17 17:38> CCU Objective - Vital Signs / Intake & Output Intake and Output (Last 8hrs): Intake & Output 05/03/17 05/03/17 05/03/17 06:59 14:59 22:59 Intake Total 572 334 Output Total 390 35 Balance 182 299 Intake: IV 100 275 Intake, IV Amount 192 24 Right Proximal Port 128 16 Internal Jugular Right Proximal TLC 64 8 Tube Feeding 280 35 Output: Urine 390 35 Urethral ([place]) 390 35 Other: # Bowel Movements 1 - Medications Active Medications: Active Medications Generic Name Dose Route Start Last Admin Trade Name Freq PRN Reason Stop Dose Admin Albuterol/Ipratropium 3 ml 04/27/17 20:00 05/03/17 13:39 Duoneb 3 Mg/0.5 Mg (3 Ml) Ud INH 3 ml RQ6 ALEX Administration Calcium Acetate 667 mg 04/30/17 14:00 05/03/17 13:01 Phoslo PO 667 mg TID ALEX Administration Furosemide 40 mg 05/02/17 14:45 05/03/17 09:12 Lasix IVP 40 mg Q12 ALEX Administration Heparin Sodium (Porcine) 5,000 units 05/01/17 14:00 05/03/17 13:00 Heparin SC 5,000 units Q8 ALEX Administration Hydromorphone HCl 0.5 mg 04/30/17 14:10 05/02/17 02:09 Dilaudid IVP 0.5 mg Q6H PRN Administration Pain, severe (8-10) Linezolid 600 mg in 300 mls @ 300 mls/hr 05/01/17 12:00 05/03/17 12:55 Zyvox 600mg/300ml D5w IVPB 300 mls/hr Q12H ALEX Administration Cefepime HCl 1 gm in 50 mls @ 100 mls/hr 05/01/17 11:30 05/03/17 12:31 Maxipime Iv 1 Gm Premix IVPB 100 mls/hr Q12H ALEX Administration Midazolam HCl 100 mg/ Sodium 100 mls @ 1.32 mls/hr 05/01/17 23:45 05/02/17 23 :35 Chloride IV Not Given .Q24H ALEX Protocol 0.02 MG/KG/HR Propofol 1,000 mg in 100 mls @ 1.985 mls/hr 05/02/17 02:14 05/03/17 11:15 Diprivan IV 15 mcg/kg/min .Q24H PRN 5.956 mls/hr TITRATE PER MD ORDER Titration Protocol 5 MCG/KG/MIN Insulin Aspart 0 unit 05/03/17 12:00 05/03/17 12:31 Novolog SC 1 unit Q6 ALEX Administration Protocol Lorazepam 2 mg 05/01/17 21:54 05/02/17 02:05 Ativan IVP 2 mg Q4H PRN Administration Anxiety Methylprednisolone 40 mg 05/02/17 22:00 05/03/17 13:03 Solu-Medrol IVP 40 mg Q8 ALEX Administration Pantoprazole Sodium 40 mg 05/01/17 10:00 05/03/17 09:12 Protonix Inj IVP 40 mg DAILY ALEX Administration Sodium Bicarbonate 1,300 mg 04/29/17 10:00 05/03/17 13:02 Sodium Bicarbonate Tab PO 1,300 mg QID ALEX Administration Vitamin A 1 ea 05/01/17 12:38 Vitamin A & D Oint Ud Foilpak TOP Q4 PRN dry lips - Patient Studies Lab Studies: Microbiology Studies 05/01/17 Unknown Gram Stain - Final Trachasp Sputum Culture - Final Yeast Species 04/30/17 18:35 Gram Stain - Final Sputum Sputum Culture - Final Yeast Species Lab Studies 05/03/17 05/03/17 05/03/17 Range/Units 12:08 06:07 06:05 WBC 22.3 H (4.8-10.8) K/uL RBC 3.04 L (3.80-5.20) Mil/uL Hgb 8.5 L (11.0-16.0) g/dL Hct 25.8 L (34.0-47.0) % MCV 84.8 (81.0-99.0) fL MCH 27.8 (27.0-31.0) pg MCHC 32.8 L (33.0-37.0) g/dL RDW 15.2 H (11.5-14.5) % Plt Count 302 (130-400) K/uL MPV 8.6 (7.2-11.7) fL Neut % (Auto) 95.1 H (50.0-75.0) % Lymph % (Auto) 2.1 L (20.0-40.0) % [place] % (Auto) 2.6 (0.0-10.0) % Eos % (Auto) 0.0 (0.0-4.0) % Baso % (Auto) 0.2 (0.0-2.0) % Neut # (Auto) 21.2 H (1.8-7.0) K/uL Lymph # (Auto) 0.5 L (1.0-4.3) K/uL [place] # (Auto) 0.6 (0.0-0.8) K/uL Eos # (Auto) 0.0 (0.0-0.7) K/uL Baso # (Auto) 0.0 (0.0-0.2) K/uL Neutrophils % (Manual) 97 H (50-75) % Lymphocytes % (Manual) 2 L (20-40) % Monocytes % (Manual) 1 (0-10) % Platelet Estimate Normal (NORMAL) Hypochromasia (manual) Slight Anisocytosis (manual) Slight Puncture Site pCO2 (35-45) mm/Hg pO2 (80-100) mm/Hg HCO3 (21-28) mmol/L ABG pH (7.35-7.45) ABG Total CO2 (22-28) mmol/L ABG O2 Saturation (95-98) % ABG Base Excess (-2.0-3.0) mmol/L ABG Hemoglobin (11.7-17.4) g/dL ABG Carboxyhemoglobin (0.5-1.5) % POC ABG HHb (Measured) (0.0-5.0) % ABG Methemoglobin (0.0-3.0) % Pierre Test A-a O2 Difference mm/Hg Respiratory Index Hgb O2 Saturation (95.0-98.0) % Vent Mode Mechanical Rate FiO2 % Tidal Volume PEEP Sodium 136 (132-148) mmol/L Potassium 3.1 L (3.6-5.2) mmol/L Chloride 101 (98-107) mmol/L Carbon Dioxide 23 (22-30) mmol/L Anion Gap 15 (10-20) BUN 60 H (7-17) mg/dL Creatinine 1.3 H (0.7-1.2) mg/dL Est GFR ( Amer) 49 Est GFR (Non-Af Amer) 41 POC Glucose (mg/dL) 164 H (65-110) mg/dL Random Glucose 202 H (65-105) mg/dL Calcium 7.3 L (8.6-10.4) mg/dl Phosphorus 4.4 (2.5-4.5) mg/dL Magnesium 2.4 H (1.6-2.3) mg/dL Total Bilirubin 0.3 (0.2-1.3) mg/dL AST 32 (14-36) U/L ALT 51 (9-52) U/L Alkaline Phosphatase 117 (38-126) U/L Total Protein 5.1 L (6.3-8.3) g/dL Albumin 2.5 L (3.5-5.0) g/dL Globulin 2.6 (2.2-3.9) gm/dL Albumin/Globulin Ratio 1.0 (1.0-2.1) ANCA Screen (NEGATIVE) c-ANCA Titer Proteinase 3 (PR3) (<1.0) AI p-ANCA Titer Atypical p-ANCA Titer Myeloperoxidase Ab (<1.0) AI Mycoplasma pneumon IgM (<770) U/mL 05/03/17 05/01/17 04/30/17 Range/Units 05:23 11:08 07:43 WBC (4.8-10.8) K/uL RBC (3.80-5.20) Mil/uL Hgb (11.0-16.0) g/dL Hct (34.0-47.0) % MCV (81.0-99.0) fL MCH (27.0-31.0) pg MCHC (33.0-37.0) g/dL RDW (11.5-14.5) % Plt Count (130-400) K/uL MPV (7.2-11.7) fL Neut % (Auto) (50.0-75.0) % Lymph % (Auto) (20.0-40.0) % [place] % (Auto) (0.0-10.0) % Eos % (Auto) (0.0-4.0) % Baso % (Auto) (0.0-2.0) % Neut # (Auto) (1.8-7.0) K/uL Lymph # (Auto) (1.0-4.3) K/uL [place] # (Auto) (0.0-0.8) K/uL Eos # (Auto) (0.0-0.7) K/uL Baso # (Auto) (0.0-0.2) K/uL Neutrophils % (Manual) (50-75) % Lymphocytes % (Manual) (20-40) % Monocytes % (Manual) (0-10) % Platelet Estimate (NORMAL) Hypochromasia (manual) Anisocytosis (manual) Puncture Site Rr pCO2 44 (35-45) mm/Hg pO2 105 H (80-100) mm/Hg HCO3 20.7 L (21-28) mmol/L ABG pH 7.29 L (7.35-7.45) ABG Total CO2 22.6 (22-28) mmol/L ABG O2 Saturation 98.2 H (95-98) % ABG Base Excess -5.4 L (-2.0-3.0) mmol/L ABG Hemoglobin 16.1 (11.7-17.4) g/dL ABG Carboxyhemoglobin 1.2 (0.5-1.5) % POC ABG HHb (Measured) 1.8 (0.0-5.0) % ABG Methemoglobin 1.2 (0.0-3.0) % Pierre Test Pos A-a O2 Difference 553.0 mm/Hg Respiratory Index 5.3 Hgb O2 Saturation 95.8 (95.0-98.0) % Vent Mode Prvc Mechanical Rate 20 FiO2 100.0 % Tidal Volume 450 PEEP 12 Sodium (132-148) mmol/L Potassium (3.6-5.2) mmol/L Chloride (98-107) mmol/L Carbon Dioxide (22-30) mmol/L Anion Gap (10-20) BUN (7-17) mg/dL Creatinine (0.7-1.2) mg/dL Est GFR ( Amer) Est GFR (Non-Af Amer) POC Glucose (mg/dL) (65-110) mg/dL Random Glucose (65-105) mg/dL Calcium (8.6-10.4) mg/dl Phosphorus (2.5-4.5) mg/dL Magnesium (1.6-2.3) mg/dL Total Bilirubin (0.2-1.3) mg/dL AST (14-36) U/L ALT (9-52) U/L Alkaline Phosphatase (38-126) U/L Total Protein (6.3-8.3) g/dL Albumin (3.5-5.0) g/dL Globulin (2.2-3.9) gm/dL Albumin/Globulin Ratio (1.0-2.1) ANCA Screen Negative (NEGATIVE) c-ANCA Titer TNP Proteinase 3 (PR3) <1.0 (<1.0) AI p-ANCA Titer TNP Atypical p-ANCA Titer TNP Myeloperoxidase Ab <1.0 (<1.0) AI Mycoplasma pneumon IgM 128 (<770) U/mL Laboratory Results - last 24 hr 04/30/17 05/01/17 05/03/17 07:43 11:08 05:23 WBC RBC Hgb Hct MCV MCH MCHC RDW Plt Count MPV Neut % (Auto) Lymph % (Auto) [place] % (Auto) Eos % (Auto) Baso % (Auto) Neut # (Auto) Lymph # (Auto) [place] # (Auto) Eos # (Auto) Baso # (Auto) Neutrophils % (Manual) Lymphocytes % (Manual) Monocytes % (Manual) Platelet Estimate Hypochromasia (manual) Anisocytosis (manual) Puncture Site Rr pCO2 44 pO2 105 H HCO3 20.7 L ABG pH 7.29 L ABG Total CO2 22.6 ABG O2 Saturation 98.2 H ABG Base Excess -5.4 L ABG Hemoglobin 16.1 ABG Carboxyhemoglobin 1.2 POC ABG HHb (Measured) 1.8 ABG Methemoglobin 1.2 Pierre Test Pos A-a O2 Difference 553.0 Respiratory Index 5.3 Hgb O2 Saturation 95.8 Vent Mode Prvc Mechanical Rate 20 FiO2 100.0 Tidal Volume 450 PEEP 12 Sodium Potassium Chloride Carbon Dioxide Anion Gap BUN Creatinine Est GFR ( Amer) Est GFR (Non-Af Amer) POC Glucose (mg/dL) Random Glucose Calcium Phosphorus Magnesium Total Bilirubin AST ALT Alkaline Phosphatase Total Protein Albumin Globulin Albumin/Globulin Ratio ANCA Screen Negative c-ANCA Titer TNP Proteinase 3 (PR3) <1.0 p-ANCA Titer TNP Atypical p-ANCA Titer TNP Myeloperoxidase Ab <1.0 Mycoplasma pneumon IgM 128 05/03/17 05/03/17 05/03/17 06:05 06:07 12:08 WBC 22.3 H RBC 3.04 L Hgb 8.5 L Hct 25.8 L MCV 84.8 MCH 27.8 MCHC 32.8 L RDW 15.2 H Plt Count 302 MPV 8.6 Neut % (Auto) 95.1 H Lymph % (Auto) 2.1 L [place] % (Auto) 2.6 Eos % (Auto) 0.0 Baso % (Auto) 0.2 Neut # (Auto) 21.2 H Lymph # (Auto) 0.5 L [place] # (Auto) 0.6 Eos # (Auto) 0.0 Baso # (Auto) 0.0 Neutrophils % (Manual) 97 H Lymphocytes % (Manual) 2 L Monocytes % (Manual) 1 Platelet Estimate Normal Hypochromasia (manual) Slight Anisocytosis (manual) Slight Puncture Site pCO2 pO2 HCO3 ABG pH ABG Total CO2 ABG O2 Saturation ABG Base Excess ABG Hemoglobin ABG Carboxyhemoglobin POC ABG HHb (Measured) ABG Methemoglobin [place] Test A-a O2 Difference Respiratory Index Hgb O2 Saturation Vent Mode Mechanical Rate FiO2 Tidal Volume PEEP Sodium 136 Potassium 3.1 L Chloride 101 Carbon Dioxide 23 Anion Gap 15 BUN 60 H Creatinine 1.3 H Est GFR ( Amer) 49 Est GFR (Non-Af Amer) 41 POC Glucose (mg/dL) 164 H Random Glucose 202 H Calcium 7.3 L Phosphorus 4.4 Magnesium 2.4 H Total Bilirubin 0.3 AST 32 ALT 51 Alkaline Phosphatase 117 Total Protein 5.1 L Albumin 2.5 L Globulin 2.6 Albumin/Globulin Ratio 1.0 ANCA Screen c-ANCA Titer Proteinase 3 (PR3) p-ANCA Titer Atypical p-ANCA Titer Myeloperoxidase Ab Mycoplasma pneumon IgM Attending/Attestation - Attestation I have personally seen and examined this patient.: Yes I have fully participated in the care of the patient.: Yes I have reviewed all pertinent clinical information: Yes Notes (Text): 05/03/17 17:21 I have seen and examined the patient. Medical records, lab studies, and imaging were reviewed by me and a management plan was formulated on multidisciplinary rounds with resident Dr. Juan. I agree with their documented assessment and plan. stopped paralytic and sedation, marked improvement in CXR with diuresis. Will start PS trials to wean off of vent. Continue lasix IV q12h. Continue sodium bicarbonate for metabolic acidosis. Critical Care Time 35 minutes. Multi-disciplinary rounds were performed with house staff, nursing, speech therapy, respiratory therapy, pharmacy and nutrition with integrated input from the primary team/attending and other consulting services. The documented time is cumulative and includes review of patient data/exams/labs/chart review and examination of the patient on rounds and throughout the day; time is exclusive of any procedures or teaching time.
--- NOTE | 2017-05-03 19:07 | CP.PCM.PN ---
Subjective - Date & Time of Evaluation Date of Evaluation: 05/03/17 Time of Evaluation: 09:00 - Subjective Subjective: SEDATED ON VENT ON ZYXOX/ MAXEPIME WBC TRENDING DOWN Objective - Vital Signs/Intake and Output Vital Signs (last 24 hours): Temp Pulse Resp BP Pulse Ox 97.9 F 72 20 137/45 L 100 05/03/17 04:00 05/03/17 07:02 05/03/17 07:02 05/03/17 09:12 05/03/17 07:02 Intake and Output: 05/03/17 05/04/17 18:59 06:59 Intake Total 369 Output Total 35 Balance 334 - Medications Medications: Current Medications Albuterol/Ipratropium (Duoneb 3 Mg/0.5 Mg (3 Ml) Ud) 3 ml INH RQ6 [facility] Last Admin: 05/03/17 13:39 Dose: 3 ml Calcium Acetate (Phoslo) 667 mg PO TID [facility] Last Admin: 05/03/17 17:52 Dose: 667 mg Furosemide (Lasix) 40 mg IVP Q12 [facility] Last Admin: 05/03/17 09:12 Dose: 40 mg Heparin Sodium (Porcine) (Heparin) 5,000 units SC Q8 [facility] Last Admin: 05/03/17 13:00 Dose: 5,000 units Hydromorphone HCl (Dilaudid) 0.5 mg IVP Q6H PRN PRN Reason: Pain, severe (8-10) Last Admin: 05/02/17 02:09 Dose: 0.5 mg Linezolid (Zyvox 600mg/300ml D5w) 600 mg in 300 mls @ 300 mls/hr IVPB Q12H [facility] Last Admin: 05/03/17 12:55 Dose: 300 mls/hr Cefepime HCl (Maxipime Iv 1 Gm Premix) 1 gm in 50 mls @ 100 mls/hr IVPB Q12H [facility] Last Admin: 05/03/17 12:31 Dose: 100 mls/hr Midazolam HCl 100 mg/ Sodium (Chloride) 100 mls @ 1.32 mls/hr IV .Q24H [facility]; 0.02 MG/KG/HR PRN Reason: Protocol Last Admin: 05/02/17 23:35 Dose: Not Given Propofol (Diprivan) 1,000 mg in 100 mls @ 1.985 mls/hr IV .Q24H PRN; Protocol; 5 MCG/KG/MIN PRN Reason: TITRATE PER MD ORDER Last Titration: 05/03/17 17:30 Dose: 15 mcg/kg/min, 5.956 mls/hr Insulin Aspart (Novolog) 0 unit SC Q6 [facility] PRN Reason: Protocol Last Admin: 05/03/17 17:46 Dose: Not Given Lorazepam (Ativan) 2 mg IVP Q4H PRN PRN Reason: Anxiety Last Admin: 05/02/17 02:05 Dose: 2 mg Methylprednisolone (Solu-Medrol) 40 mg IVP Q8 [facility] Last Admin: 05/03/17 13:03 Dose: 40 mg Pantoprazole Sodium (Protonix Inj) 40 mg IVP DAILY [facility] Last Admin: 05/03/17 09:12 Dose: 40 mg Sodium Bicarbonate (Sodium Bicarbonate Tab) 1,300 mg PO QID [facility] Last Admin: 05/03/17 17:52 Dose: 1,300 mg Vitamin A (Vitamin A & D Oint Ud Foilpak) 1 ea TOP Q4 PRN PRN Reason: dry lips - Labs Labs: 05/03/17 06:07 05/03/17 06:05 PT 11.1 SECONDS (9.7-12.2) 05/01/17 06:17 INR 1.0 05/01/17 06:17 APTT 23 SECONDS (21-34) 05/01/17 06:17 - Constitutional Appears: Chronically Ill - Head Exam Head Exam: NORMOCEPHALIC - Eye Exam Eye Exam: absent: Scleral icterus - ENT Exam ENT Exam: Mucous Membranes Dry - Neck Exam Neck Exam: absent: Lymphadenopathy - Respiratory Exam Respiratory Exam: Decreased Breath Sounds - Cardiovascular Exam Cardiovascular Exam: REGULAR RHYTHM - GI/Abdominal Exam GI & Abdominal Exam: Distended, Soft - Rectal Exam Rectal Exam: Deferred Assessment and Plan (1) Pelvic mass in female Status: Acute (2) Abdominal pain Status: Acute (3) Leukocytosis Status: Acute - Assessment and Plan (Free Text) Assessment: SEPSIS/ SEPTIC SHOCK/ PNEUMONIA S/P LAP SURGERY FOR OVARIAN MASS VRE UTI CONT IV RX
[2017-05-03] MEDS: Dexmedetomidine Hydrochloride 200 MCG in Sodium Chloride 0.9% 48 ML IV PRN (20:30)
[2017-05-03] MEDS: Vitamins A & D Oint UD Foilpak TOP PRN (22:00)
--- NOTE | 2017-05-03 22:38 | PN ---
DATE: LOCATION: ICU 7. SUBJECTIVE: This is a 66-year-old female without significant clinical changes or reported active bleeding. The patient still is sedated and intubated. The patient is status post laparoscopy with left salpingo-oophorectomy. The entire chart is reviewed including, but not limited to the most recent lab and radiologic study results, current and the previous medication list, current and previous medical events. Case discussed with the staff at length. Today's lab showed white blood cells of 22.3, hemoglobin 8.5, hematocrit 25.8, with abnormal ABGs, potassium 3.1, blood glucose level 164, BUN 60, creatinine 1.3, calcium 7.3, magnesium 2.4, albumin low at 2.5, with total protein of 5.1. Today's chest x-ray report is seen with evidence of trace bilateral plural effusion. PHYSICAL EXAMINATION GENERAL: A 66-year-old female, intubated, sedated. VITAL SIGNS: Afebrile, with pulse of 72, blood pressure 134/54. HEENT: Showed pale, dry oral mucous membranes. Nonicteric sclerae. LUNGS: Few scattered crepitations. Decreased air entry at bases. HEART: Positive S1 and S2. ABDOMEN: Soft. Bowel sounds are present with mild generalized tenderness. No mass or organomegaly. No rebound tenderness or guarding, covered with clean dressing. EXTREMITIES: Lower extremity mild edematous changes. No clubbing or cyanosis. NEUROLOGIC: No reported new focal neurological deficits, sensory or motor. IMPRESSION: 1. Pneumonia with respiratory failure. 2. Congestive heart failure. 3. Acute renal insufficiency. 4. Hyperlipidemia. 5. Anemia, secondary to above. 6. Electrolyte imbalance. 7. Adnexal mass. 8. Malnutrition with hypoalbuminemia. SUGGESTIONS: 1. Continue current management. 2. Peripheral hyperalimentation. 3. The patient may need PEG insertion. 4. Further recommendations to follow. Shantel Lakhani MD
[2017-05-04] MEDS: Albuterol-Ipratrop 3 mg / 0.5 (3 ml) UD INH SCH ×4 (01:51→19:55)
[2017-05-04] MEDS: Propofol 10 mg/ml 1,000 MG/100 ML VIAL IV PRN ×3 (04:45→21:00)
[2017-05-04 05:57] LABS: ABG ALLEN TEST POS; ARTERIAL BLOOD GAS HCO3 27.4 mmol/L (21-28); ARTERIAL BLOOD GAS HEMOGLOBIN 8.7 g/dL (11.7-17.4); ARTERIAL BLOOD GAS O2 SAT 98.7 % (95-98); ARTERIAL BLOOD GAS PCO2 46 mm/Hg (35-45); ARTERIAL BLOOD GAS PO2 93 mm/Hg (80-100); ARTERIAL BLOOD GAS TCO2 29.9 mmol/L (22-28)
[2017-05-04] MEDS: (Novolog) Insulin Aspart, Recombinant 100 u/ml 10 ml vial SC SCH ×4 (06:00→18:00)
[2017-05-04] MEDS: MethylPREDNISolone 40 mg Vial IVP SCH ×3 (06:15→21:10)
[2017-05-04 06:44] LABS: BASO % 0.1 % (0.0-2.0); EOS % 0.1 % (0.0-4.0); HEMOGLOBIN 8.4 g/dL (11.0-16.0); LYMPH # 0.9 K/uL (1.0-4.3); LYMPH % 3.1 % (20.0-40.0); MEAN CORPUSCULAR HEMOGLOBIN 28.2 pg (27.0-31.0); MEAN CORPUSCULAR HGB CONC 33.6 g/dL (33.0-37.0); MEAN PLATELET VOLUME 7.9 fL (7.2-11.7); MONO # 0.7 K/uL (0.0-0.8); MONO % 2.5 % (0.0-10.0); NEUT # 27.2 K/uL (1.8-7.0); NEUT % 94.2 % (50.0-75.0); PLATELET COUNT 287 K/uL (130-400); RBC 2.98 Mil/uL (3.80-5.20); RED CELL DISTRIBUTION WIDTH 15.1 % (11.5-14.5); WHITE BLOOD COUNT 28.9 K/uL (4.8-10.8)
[2017-05-04 06:57] LABS: BLOOD UREA NITROGEN 60 mg/dL (7-17); CALCIUM 7.5 mg/dl (8.6-10.4); GFR AFRICAN-AMERICAN > 60; GFR NON-AFRICAN AMERICAN 55
--- NOTE | 2017-05-04 06:57 | PN ---
DATE: 05/03/2017. SUBJECTIVE: The patient on ventilator, supportive care, IV antibiotics. Chest x-ray, pneumonia improving. : Respiratory failure, aspiration pneumonia, urosepsis. Avel Langley MD
--- NOTE | 2017-05-04 08:00 | CP.PCM.PN ---
Subjective - Date & Time of Evaluation Date of Evaluation: 05/04/17 Time of Evaluation: 07:25 - Subjective Subjective: General surgery progress note for Dr. Nery Pulliam, PGY-1 Pt S & E at bedside. Pt intubated, sedated, no acute events overnight, on tube feeds. PRVC TV 450, RR 20, PEEP 12, FiO2 100% Objective - Vital Signs/Intake and Output Vital Signs (last 24 hours): Temp Pulse Resp BP Pulse Ox 98.8 F 67 21 159/53 H 100 05/04/17 04:00 05/04/17 07:02 05/04/17 07:02 05/04/17 07:02 05/04/17 07:02 Intake and Output: 05/04/17 05/04/17 06:59 18:59 Intake Total 661.9 13.4 Output Total 1325 90 Balance -663.1 -76.6 - Medications Medications: Current Medications Albuterol/Ipratropium (Duoneb 3 Mg/0.5 Mg (3 Ml) Ud) 3 ml INH RQ6 [facility] Last Admin: 05/04/17 07:57 Dose: 3 ml Calcium Acetate (Phoslo) 667 mg PO TID [facility] Last Admin: 05/03/17 17:52 Dose: 667 mg Furosemide (Lasix) 40 mg IVP Q12 [facility] Last Admin: 05/03/17 22:00 Dose: 40 mg Heparin Sodium (Porcine) (Heparin) 5,000 units SC Q8 [facility] Last Admin: 05/04/17 06:15 Dose: 5,000 units Hydromorphone HCl (Dilaudid) 0.5 mg IVP Q6H PRN PRN Reason: Pain, severe (8-10) Last Admin: 05/02/17 02:09 Dose: 0.5 mg Linezolid (Zyvox 600mg/300ml D5w) 600 mg in 300 mls @ 300 mls/hr IVPB Q12H [facility] Last Admin: 05/04/17 00:00 Dose: 300 mls/hr Cefepime HCl (Maxipime Iv 1 Gm Premix) 1 gm in 50 mls @ 100 mls/hr IVPB Q12H [facility] Last Admin: 05/03/17 23:30 Dose: 100 mls/hr Midazolam HCl 100 mg/ Sodium (Chloride) 100 mls @ 1.32 mls/hr IV .Q24H [facility]; 0.02 MG/KG/HR PRN Reason: Protocol Last Admin: 05/02/17 23:35 Dose: Not Given Propofol (Diprivan) 1,000 mg in 100 mls @ 1.985 mls/hr IV .Q24H PRN; Protocol; 5 MCG/KG/MIN PRN Reason: TITRATE PER MD ORDER Last Admin: 05/04/17 04:47 Dose: 30 mcg/kg/min, 11.912 mls/hr Dexmedetomidine HCl 200 mcg/ (Sodium Chloride) 50 mls @ 3.31 mls/hr IV TITR PRN ; Protocol; 0.2 MCG/KG/HR PRN Reason: Sedation Last Admin: 05/03/17 20:30 Dose: 0.2 mcg/kg/hr, 3.31 mls/hr Insulin Aspart (Novolog) 0 unit SC Q6 [facility] PRN Reason: Protocol Last Admin: 05/04/17 06:00 Dose: Not Given Lorazepam (Ativan) 2 mg IVP Q4H PRN PRN Reason: Anxiety Last Admin: 05/02/17 02:05 Dose: 2 mg Methylprednisolone (Solu-Medrol) 40 mg IVP Q8 [facility] Last Admin: 05/04/17 06:15 Dose: 40 mg Pantoprazole Sodium (Protonix Inj) 40 mg IVP DAILY [facility] Last Admin: 05/03/17 09:12 Dose: 40 mg Sodium Bicarbonate (Sodium Bicarbonate Tab) 1,300 mg PO QID [facility] Last Admin: 05/03/17 22:28 Dose: 1,300 mg Vitamin A (Vitamin A & D Oint Ud Foilpak) 1 ea TOP Q4 PRN PRN Reason: dry lips Last Admin: 05/03/17 22:00 Dose: 1 ea - Labs Labs: 05/04/17 06:30 05/04/17 06:29 PT 11.1 SECONDS (9.7-12.2) 05/01/17 06:17 INR 1.0 05/01/17 06:17 APTT 23 SECONDS (21-34) 05/01/17 06:17 - Constitutional Appears: Non-toxic, No Acute Distress - Head Exam Head Exam: ATRAUMATIC, NORMAL INSPECTION, NORMOCEPHALIC - Eye Exam Eye Exam: EOMI, Normal appearance - ENT Exam ENT Exam: Mucous Membranes Dry (ET tube in place) - Respiratory Exam Respiratory Exam: NORMAL BREATHING PATTERN (on mech vent) - Cardiovascular Exam Cardiovascular Exam: REGULAR RHYTHM, +S1, +S2 - GI/Abdominal Exam GI & Abdominal Exam: Soft. absent: Distended, Firm, Guarding, Rigid, Rebound - Extremities Exam Extremities Exam: Normal Inspection - Neurological Exam Neurological Exam: absent: Alert, Awake, CN II-XII Intact, Oriented x3 - Psychiatric Exam Psychiatric exam: absent: Normal Affect, Normal Mood Additional comments: intubated, sedated - Skin Skin Exam: Dry, Intact, Normal Color, Warm Additional comments: Abdominal incisions with glue in place, no erythema or drainage Assessment and Plan - Assessment and Plan (Free Text) Assessment: 66F POD#4 s/p diagnostic laparascopy with Left salpino-oopherectomy, left intubated on PRVC Plan: Pain control PRN Cont IVF Cont IV Abx Monitor for bowel function Re-consulted for trach- pt needs to be medically optimized prior to consideration for tracheostomy Further mgmt as per ICU & Primary teams GI/DVT ppx DW attending Shasha, PGY-1
--- NOTE | 2017-05-04 08:14 | CP.PCM.PN ---
Subjective - Date & Time of Evaluation Date of Evaluation: 05/04/17 Time of Evaluation: 07:45 - Subjective Subjective: no new cardiac events. remains intubated. Objective - Vital Signs/Intake and Output Vital Signs (last 24 hours): Temp Pulse Resp BP Pulse Ox 98.8 F 67 21 159/53 H 100 05/04/17 04:00 05/04/17 07:02 05/04/17 07:02 05/04/17 07:02 05/04/17 07:02 Intake and Output: 05/04/17 05/04/17 06:59 18:59 Intake Total 661.9 13.4 Output Total 1130 60 Balance -468.1 -46.6 - Medications Medications: Current Medications Albuterol/Ipratropium (Duoneb 3 Mg/0.5 Mg (3 Ml) Ud) 3 ml INH RQ6 [facility] Last Admin: 05/04/17 07:57 Dose: 3 ml Calcium Acetate (Phoslo) 667 mg PO TID [facility] Last Admin: 05/03/17 17:52 Dose: 667 mg Furosemide (Lasix) 40 mg IVP Q12 [facility] Last Admin: 05/03/17 22:00 Dose: 40 mg Heparin Sodium (Porcine) (Heparin) 5,000 units SC Q8 [facility] Last Admin: 05/04/17 06:15 Dose: 5,000 units Hydromorphone HCl (Dilaudid) 0.5 mg IVP Q6H PRN PRN Reason: Pain, severe (8-10) Last Admin: 05/02/17 02:09 Dose: 0.5 mg Linezolid (Zyvox 600mg/300ml D5w) 600 mg in 300 mls @ 300 mls/hr IVPB Q12H [facility] Last Admin: 05/04/17 00:00 Dose: 300 mls/hr Cefepime HCl (Maxipime Iv 1 Gm Premix) 1 gm in 50 mls @ 100 mls/hr IVPB Q12H [facility] Last Admin: 05/03/17 23:30 Dose: 100 mls/hr Midazolam HCl 100 mg/ Sodium (Chloride) 100 mls @ 1.32 mls/hr IV .Q24H [facility]; 0.02 MG/KG/HR PRN Reason: Protocol Last Admin: 05/02/17 23:35 Dose: Not Given Propofol (Diprivan) 1,000 mg in 100 mls @ 1.985 mls/hr IV .Q24H PRN; Protocol; 5 MCG/KG/MIN PRN Reason: TITRATE PER MD ORDER Last Admin: 05/04/17 04:47 Dose: 24 mcg/kg/min, 9.53 mls/hr Dexmedetomidine HCl 200 mcg/ (Sodium Chloride) 50 mls @ 3.31 mls/hr IV TITR PRN ; Protocol; 0.2 MCG/KG/HR PRN Reason: Sedation Last Admin: 05/03/17 20:30 Dose: 0.2 mcg/kg/hr, 3.31 mls/hr Insulin Aspart (Novolog) 0 unit SC Q6 [facility] PRN Reason: Protocol Last Admin: 05/04/17 06:00 Dose: Not Given Lorazepam (Ativan) 2 mg IVP Q4H PRN PRN Reason: Anxiety Last Admin: 05/02/17 02:05 Dose: 2 mg Methylprednisolone (Solu-Medrol) 40 mg IVP Q8 [facility] Last Admin: 05/04/17 06:15 Dose: 40 mg Pantoprazole Sodium (Protonix Inj) 40 mg IVP DAILY [facility] Last Admin: 05/03/17 09:12 Dose: 40 mg Sodium Bicarbonate (Sodium Bicarbonate Tab) 1,300 mg PO QID [facility] Last Admin: 05/03/17 22:28 Dose: 1,300 mg Vitamin A (Vitamin A & D Oint Ud Foilpak) 1 ea TOP Q4 PRN PRN Reason: dry lips Last Admin: 05/03/17 22:00 Dose: 1 ea - Labs Labs: 05/04/17 06:30 05/04/17 06:29 PT 11.1 SECONDS (9.7-12.2) 05/01/17 06:17 INR 1.0 05/01/17 06:17 APTT 23 SECONDS (21-34) 05/01/17 06:17 - Constitutional Appears: Toxic - Head Exam Head Exam: NORMAL INSPECTION - Eye Exam Eye Exam: Normal appearance - ENT Exam ENT Exam: Mucous Membranes Moist - Neck Exam Neck Exam: Full ROM - Respiratory Exam Respiratory Exam: Decreased Breath Sounds - Cardiovascular Exam Cardiovascular Exam: REGULAR RHYTHM - GI/Abdominal Exam GI & Abdominal Exam: Normal Bowel Sounds - Rectal Exam Rectal Exam: Deferred - Extremities Exam Extremities Exam: absent: Joint Swelling - Back Exam Back Exam: NORMAL INSPECTION - Skin Skin Exam: Normal Color Assessment and Plan (1) Pelvic mass in female Assessment & Plan: s/p diagnostic laparotomy. no new cardiac events. no bradycardia. supportive care. Status: Acute
[2017-05-04 08:26] LABS: ABG ALLEN TEST POS; ARTERIAL BLOOD GAS HCO3 27.5 mmol/L (21-28); ARTERIAL BLOOD GAS O2 SAT 97.5 % (95-98); ARTERIAL BLOOD GAS PCO2 50 mm/Hg (35-45); ARTERIAL BLOOD GAS PH 7.38 (7.35-7.45); ARTERIAL BLOOD GAS PO2 74 mm/Hg (80-100); ARTERIAL BLOOD GAS TCO2 31.1 mmol/L (22-28)
--- NOTE | 2017-05-04 08:38 | RAD ---
HISTORY: pna COMPARISON: 05/03/2017 FINDINGS: LUNGS: Extensive bilateral diffuse alveolar opacity representing interval change from the prior examination. This may represent acute pulmonary edema or may reflect bilateral pneumonia, multi lobar. PLEURA: No significant pleural effusion identified, no pneumothorax apparent. CARDIOVASCULAR: Normal heart size. ET tube, NG tube and right IJ multi lumen central venous catheter are unchanged. OSSEOUS STRUCTURES: No significant abnormalities. VISUALIZED UPPER ABDOMEN: Normal. OTHER FINDINGS: None. IMPRESSION: Extensive bilateral diffuse alveolar opacity. Possible pulmonary edema versus bilateral multi lobar pneumonia.
[2017-05-04 09:17] LABS: BANDS 1 % (0-2); LYMPHOCYTE 3 % (20-40); MONOCYTE 4 % (0-10); NEUTROPHIL 92 % (50-75); TOTAL CELLS COUNTED 100
[2017-05-04 09:18] LABS: ANISOCYTOSIS SLIGHT; HYPOCHROMIC SLIGHT; PLATELET ESTIMATE NORMAL (NORMAL); POLYCHROMIC SLIGHT
[2017-05-04] MEDS: Dexmedetomidine Hydrochloride 200 MCG in Sodium Chloride 0.9% 48 ML IV PRN ×3 (11:03→22:49)
[2017-05-04] MEDS: Cefepime IV 1 gm in Dextrose 1 GM/50 ML BAG IVPB SCH ×2 (11:03→22:48)
[2017-05-04] MEDS: Linezolid 600 mg in D5W 300 ml 600 MG/300 ML BAG IVPB SCH ×2 (11:05)
[2017-05-04] MEDS: Enoxaparin 40 mg Syringe SC SCH (11:06)
--- NOTE | 2017-05-04 12:27 | CP.PCM.PN ---
Subjective - Date & Time of Evaluation Date of Evaluation: 05/04/17 Time of Evaluation: 12:25 - Subjective Subjective: Follow up Nephrology Consultation: Assessment: critical Pulmonary edema ? ARDS with acute respi failure Hypokalemia, combined respi and metabolic acidosis Acute Kidney Injury (N17.9) ? etiology. possible ATN: improved Hyponatremia likely multi-factorial: thiazide diuretics, hypotonic fluids: improved Anemia, s/p left nephrectomy for stones active smoker HTN, hyperlipidemia, adnexal mass (cystadenofibroma) ascites, hypoalbuminemia Nephrotic syndrome with 3.5 gram proteinuria amd microscopic hematuria. differential include (MPGN due to Hep C, FSGS due to solitary kidney) Cecal thickening on CT scan heterogenous nodular liver with ascites and hx of Hep C ? cirrhosis Plan No acute need for renal replacement therapy at this time. UOP and s creat better Hypertension control with meds as ordered. Patient not on ACEI/ARB due to TONA. Monitor Input/Output, daily weights and renal function with basic metabolic panel continue with lasix 80 mg IV BID if stable hemodynamics. lower sodium bicarb 650 mg qid, can d/c soon if continue to improve. supplement electrolytes as needed She is not a candidate for kidney biopsy at present due to solitary kidney and pending oncologic work up, acute illness. check RA factor and cryoglobulins as well Dose meds/antibiotics for improved GFR. Avoid fleets enema/magnesium based laxatives. Avoid nephrotoxins/NSAIDs/ iodinated contrast (unless needed emergently) Glycemic control Further work up/management as per primary team Thanks for allowing me to participate in care of your patient. Will follow patient with you. Please call if any Qs. d/w team and daughter Dr Chavez Lupe Office: [phone] reason for consult: TONA and hyponatremia HPI: Pt is a 66 F with hx of hypertension (years), smoker presented with complaints of abdomen pain and leg swelling, found to have ascites and left adnexal cystic mass, renal consult for TONA and hyponatremia. pt also reports hx of left nephrectomy for kidney stones she has een on HCTZ and also was receiving hypotonic fluids as D5/0.45% saline Denies OTC/herbal meds or NSAIDs No recent iodinated contrast exposure. No obvious episodes of low BP. ROS: unable pt intubated/ went to OR 04/30/17 for expl lap s/p left oopherectomy Physical Examination: General Appearance: intubated Vitals reviewed and noted as below Head; Atraumatic, normocephalic ENT: intubated Neck; supple no lymphadenopathy, no thyromegaly or bruit Lungs: improved respiratory rate/effort. Breath sounds bilateral clear anteriorly Heart:decreased rate. s1s2 normal. No rub or gallop. Extremities: 1+ edema. No varicose veins Neurological: Patient is sedated. Skin: Warm and dry. Normal turgor. No rash. Palpitation: Normal elasticity for age Abdomen: Abdomen is soft. Bowel sounds +. There is no abdominal tenderness, no guarding/rigidity no organomegaly. distended. s/p laparascopic surgery Psych: unable MSK: no joint tenderness or swelling. Digits and nails normal, no deformity : kidney or bladder not palpable Labs/imaging reviewed. Past medical history, past surgical history, family history, social history, allergy reviewed and noted as below Family hx: no hx of CKD. Rest non-contributory UA: 2+ protein and 2+ blood CT: left adnexal cyst. Objective - Vital Signs/Intake and Output Vital Signs (last 24 hours): Temp Pulse Resp BP Pulse Ox 98.8 F 67 21 164/58 H 100 05/04/17 04:00 05/04/17 07:02 05/04/17 07:02 05/04/17 11:01 05/04/17 07:02 Intake and Output: 05/04/17 05/04/17 06:59 18:59 Intake Total 661.9 81.4 Output Total 1130 60 Balance -468.1 21.4 - Medications Medications: Current Medications Albuterol/Ipratropium (Duoneb 3 Mg/0.5 Mg (3 Ml) Ud) 3 ml INH RQ6 [facility] Last Admin: 05/04/17 07:57 Dose: 3 ml Enoxaparin Sodium (Lovenox) 40 mg SC DAILY [facility] Last Admin: 05/04/17 11:06 Dose: 40 mg Furosemide (Lasix) 80 mg IVP Q12 [facility] Last Admin: 05/04/17 11:01 Dose: 80 mg Hydromorphone HCl (Dilaudid) 0.5 mg IVP Q6H PRN PRN Reason: Pain, severe (8-10) Last Admin: 05/02/17 02:09 Dose: 0.5 mg Linezolid (Zyvox 600mg/300ml D5w) 600 mg in 300 mls @ 300 mls/hr IVPB Q12H [facility] Last Admin: 05/04/17 11:05 Dose: 300 mls/hr Cefepime HCl (Maxipime Iv 1 Gm Premix) 1 gm in 50 mls @ 100 mls/hr IVPB Q12H [facility] Last Admin: 05/04/17 11:03 Dose: 100 mls/hr Midazolam HCl 100 mg/ Sodium (Chloride) 100 mls @ 1.32 mls/hr IV .Q24H [facility]; 0.02 MG/KG/HR PRN Reason: Protocol Last Admin: 05/02/17 23:35 Dose: Not Given Propofol (Diprivan) 1,000 mg in 100 mls @ 1.985 mls/hr IV .Q24H PRN; Protocol; 5 MCG/KG/MIN PRN Reason: TITRATE PER MD ORDER Last Titration: 05/04/17 11:30 Dose: 10.07 mcg/kg/min, 4 mls/hr Dexmedetomidine HCl 200 mcg/ (Sodium Chloride) 50 mls @ 3.31 mls/hr IV TITR PRN ; Protocol; 0.2 MCG/KG/HR PRN Reason: Sedation Last Admin: 05/04/17 11:03 Dose: 0.25 mcg/kg/hr, 4.14 mls/hr Insulin Aspart (Novolog) 0 unit SC Q6 [facility] PRN Reason: Protocol Last Admin: 05/04/17 06:00 Dose: Not Given Lorazepam (Ativan) 2 mg IVP Q4H PRN PRN Reason: Anxiety Last Admin: 05/02/17 02:05 Dose: 2 mg Methylprednisolone (Solu-Medrol) 40 mg IVP Q8 [facility] Last Admin: 05/04/17 06:15 Dose: 40 mg Pantoprazole Sodium (Protonix Ec Tab) 40 mg PO DAILY [facility] Sodium Bicarbonate (Sodium Bicarbonate Tab) 650 mg PO BID [facility] Last Admin: 05/04/17 11:00 Dose: 650 mg Vitamin A (Vitamin A & D Oint Ud Foilpak) 1 ea TOP Q4 PRN PRN Reason: dry lips Last Admin: 05/03/17 22:00 Dose: 1 ea - Labs Labs: 05/04/17 06:30 05/04/17 06:29 PT 11.1 SECONDS (9.7-12.2) 05/01/17 06:17 INR 1.0 05/01/17 06:17 APTT 23 SECONDS (21-34) 05/01/17 06:17
--- NOTE | 2017-05-04 12:47 | CARD ---
APPROVED REPORT EKG Measurement Heart [id number] <Conclusion> Sinus bradycardia with premature atrial complexes Low voltage QRS Borderline ECG
--- NOTE | 2017-05-04 12:48 | CARD ---
APPROVED REPORT EKG Measurement Heart [id number] HI [id number] <Conclusion> Normal sinus rhythm with sinus arrhythmia Possible Left atrial enlargement Low voltage QRS Cannot rule out Anteroseptal infarct, age undetermined Abnormal ECG
--- NOTE | 2017-05-04 12:48 | CARD ---
APPROVED REPORT EKG Measurement Heart [id number] IN [id number] [id number] <Conclusion> Sinus rhythm with short IN with premature atrial complexes Low voltage QRS Borderline ECG
--- NOTE | 2017-05-04 15:50 | CP.CCUPN ---
<Alcon Cornejo - Last Filed: 05/04/17 15:44> CCU Subjective - Physician Review Subjective (Free Text): Patient seen and examined. Intubated and sedated. ROS not obtainable. Urine culture positive for VRE - started on zyvox, cefepime and azithromycin. OGT placed and on tubefeeds. Saturating 100% on vent. Patient still in ARDS with slight improvement. We will continue aggressive diuresis. Wellness Nurse Dr Andrade increased lasix to 80mg IV BID. Will monitor her BP. CXR worse today compared to yesterday however today requiring less FiO2. CCU Objective - Vital Signs / Intake & Output Intake and Output (Last 8hrs): Intake & Output 05/04/17 05/04/17 05/04/17 06:59 14:59 22:59 Intake Total 571.3 88.4 Output Total 705 60 Balance -133.7 28.4 Intake: IV 100 75 Intake, IV Amount 471.3 13.4 Right Medial Port 26.6 3.4 Internal Jugular Right Proximal Port 94.7 10 Internal Jugular Right Proximal TLC 350 Output: Urine 705 60 Urethral (Tay) 705 60 Other: # Bowel Movements 3 - Medications Active Medications: Active Medications Generic Name Dose Route Start Last Admin Trade Name Freq PRN Reason Stop Dose Admin Albuterol/Ipratropium 3 ml 04/27/17 20:00 05/04/17 14:52 Duoneb 3 Mg/0.5 Mg (3 Ml) Ud INH 3 ml RQ6 ALEX Administration Enoxaparin Sodium 40 mg 05/04/17 10:00 05/04/17 11:06 Lovenox SC 40 mg DAILY ALEX Administration Furosemide 80 mg 05/04/17 10:00 05/04/17 11:01 Lasix IVP 80 mg Q12 ALEX Administration Linezolid 600 mg in 300 mls @ 300 mls/hr 05/01/17 12:00 05/04/17 11:05 Zyvox 600mg/300ml D5w IVPB 300 mls/hr Q12H ALEX Administration Cefepime HCl 1 gm in 50 mls @ 100 mls/hr 05/01/17 11:30 05/04/17 11:03 Maxipime Iv 1 Gm Premix IVPB 100 mls/hr Q12H ALEX Administration Midazolam HCl 100 mg/ Sodium 100 mls @ 1.32 mls/hr 05/01/17 23:45 05/02/17 23 :35 Chloride IV Not Given .Q24H ALEX Protocol 0.02 MG/KG/HR Propofol 1,000 mg in 100 mls @ 1.985 mls/hr 05/02/17 02:14 05/04/17 12:00 Diprivan IV 15.11 mcg/kg/min .Q24H PRN 6 mls/hr TITRATE PER MD ORDER Titration Protocol 5 MCG/KG/MIN Dexmedetomidine HCl 200 mcg/ 50 mls @ 3.31 mls/hr 05/03/17 19:37 05/04/17 12: 00 Sodium Chloride IV 0.3 mcg/kg/hr TITR PRN 5 mls/hr Sedation Titration Protocol 0.2 MCG/KG/HR Insulin Aspart 0 unit 05/03/17 12:00 05/04/17 12:33 Novolog SC Not Given Q6 ALEX Protocol Lorazepam 2 mg 05/01/17 21:54 05/02/17 02:05 Ativan IVP 2 mg Q4H PRN Administration Anxiety Methylprednisolone 40 mg 05/02/17 22:00 05/04/17 06:15 Solu-Medrol IVP 40 mg Q8 ALEX Administration Pantoprazole Sodium 40 mg 05/05/17 10:00 Protonix Ec Tab PO DAILY ALEX Sodium Bicarbonate 650 mg 05/04/17 10:30 05/04/17 11:00 Sodium Bicarbonate Tab PO 650 mg BID ALEX Administration Vitamin A 1 ea 05/01/17 12:38 05/03/17 22:00 Vitamin A & D Oint Ud Foilpak TOP 1 ea Q4 PRN Administration dry lips - Patient Studies Lab Studies: Microbiology Studies 05/01/17 Unknown Gram Stain - Final Trachasp Sputum Culture - Final Yeast Species Lab Studies 05/04/17 05/04/17 05/04/17 Range/Units 12:14 08:22 06:30 WBC 28.9 H (4.8-10.8) K/uL RBC 2.98 L (3.80-5.20) Mil/uL Hgb 8.4 L (11.0-16.0) g/dL Hct 25.0 L (34.0-47.0) % MCV 84.0 (81.0-99.0) fL MCH 28.2 (27.0-31.0) pg MCHC 33.6 (33.0-37.0) g/dL RDW 15.1 H (11.5-14.5) % Plt Count 287 (130-400) K/uL MPV 7.9 (7.2-11.7) fL Neut % (Auto) 94.2 H (50.0-75.0) % Lymph % (Auto) 3.1 L (20.0-40.0) % [place] % (Auto) 2.5 (0.0-10.0) % Eos % (Auto) 0.1 (0.0-4.0) % Baso % (Auto) 0.1 (0.0-2.0) % Neut # (Auto) 27.2 H (1.8-7.0) K/uL Lymph # (Auto) 0.9 L (1.0-4.3) K/uL [place] # (Auto) 0.7 (0.0-0.8) K/uL Eos # (Auto) 0.0 (0.0-0.7) K/uL Baso # (Auto) 0.0 (0.0-0.2) K/uL Neutrophils % (Manual) 92 H (50-75) % Band Neutrophils % 1 (0-2) % Lymphocytes % (Manual) 3 L (20-40) % Monocytes % (Manual) 4 (0-10) % Platelet Estimate Normal (NORMAL) Polychromasia Slight Hypochromasia (manual) Slight Anisocytosis (manual) Slight Puncture Site Rr pCO2 50 H (35-45) mm/Hg pO2 74 L (80-100) mm/Hg HCO3 27.5 (21-28) mmol/L ABG pH 7.38 (7.35-7.45) ABG Total CO2 31.1 H (22-28) mmol/L ABG O2 Saturation 97.5 (95-98) % ABG Base Excess 3.4 H (-2.0-3.0) mmol/L ABG Hemoglobin (11.7-17.4) g/dL ABG Carboxyhemoglobin (0.5-1.5) % POC ABG HHb (Measured) (0.0-5.0) % ABG Methemoglobin (0.0-3.0) % Pierre Test Pos ABG Potassium 3.9 (3.6-5.2) mmol/L A-a O2 Difference 363.0 mm/Hg Respiratory Index 4.9 Hgb O2 Saturation (95.0-98.0) % Glucose 115 H (65-105) mg/dl Lactate 2.2 H (0.7-2.1) mmol/L Vent Mode Prvc Mechanical Rate 18 FiO2 70.0 % Tidal Volume 350 PEEP 14 Sodium 144.0 (132-148) mmol/L Potassium (3.6-5.2) mmol/L Chloride 108.0 H (98-107) mmol/L Carbon Dioxide (22-30) mmol/L Anion Gap (10-20) BUN (7-17) mg/dL Creatinine (0.7-1.2) mg/dL Est GFR ( Amer) Est GFR (Non-Af Amer) POC Glucose (mg/dL) 132 H (65-110) mg/dL Random Glucose (65-105) mg/dL Calcium (8.6-10.4) mg/dl Phosphorus (2.5-4.5) mg/dL Magnesium (1.6-2.3) mg/dL Arterial Blood Potassium 3.9 (3.6-5.2) mmol/L Mycoplasma pneumon IgG (<=0.90) Mycoplasma pneumon IgM (<770) U/mL 05/04/17 05/04/17 05/04/17 Range/Units 06:29 06:24 05:20 WBC (4.8-10.8) K/uL RBC (3.80-5.20) Mil/uL Hgb (11.0-16.0) g/dL Hct (34.0-47.0) % MCV (81.0-99.0) fL MCH (27.0-31.0) pg MCHC (33.0-37.0) g/dL RDW (11.5-14.5) % Plt Count (130-400) K/uL MPV (7.2-11.7) fL Neut % (Auto) (50.0-75.0) % Lymph % (Auto) (20.0-40.0) % [place] % (Auto) (0.0-10.0) % Eos % (Auto) (0.0-4.0) % Baso % (Auto) (0.0-2.0) % Neut # (Auto) (1.8-7.0) K/uL Lymph # (Auto) (1.0-4.3) K/uL [place] # (Auto) (0.0-0.8) K/uL Eos # (Auto) (0.0-0.7) K/uL Baso # (Auto) (0.0-0.2) K/uL Neutrophils % (Manual) (50-75) % Band Neutrophils % (0-2) % Lymphocytes % (Manual) (20-40) % Monocytes % (Manual) (0-10) % Platelet Estimate (NORMAL) Polychromasia Hypochromasia (manual) Anisocytosis (manual) Puncture Site Rr pCO2 46 H (35-45) mm/Hg pO2 93 (80-100) mm/Hg HCO3 27.4 (21-28) mmol/L ABG pH 7.40 (7.35-7.45) ABG Total CO2 29.9 H (22-28) mmol/L ABG O2 Saturation 98.7 H (95-98) % ABG Base Excess 3.2 H (-2.0-3.0) mmol/L ABG Hemoglobin 8.7 L (11.7-17.4) g/dL ABG Carboxyhemoglobin 1.8 H (0.5-1.5) % POC ABG HHb (Measured) 1.3 (0.0-5.0) % ABG Methemoglobin 1.0 (0.0-3.0) % Pierre Test Pos ABG Potassium (3.6-5.2) mmol/L A-a O2 Difference 420.0 mm/Hg Respiratory Index 4.5 Hgb O2 Saturation 95.8 (95.0-98.0) % Glucose (65-105) mg/dl Lactate (0.7-2.1) mmol/L Vent Mode Prvc Mechanical Rate 20 FiO2 80.0 % Tidal Volume 450 PEEP 12 Sodium 138 (132-148) mmol/L Potassium 3.9 (3.6-5.2) mmol/L Chloride 102 (98-107) mmol/L Carbon Dioxide 26 (22-30) mmol/L Anion Gap 15 (10-20) BUN 60 H (7-17) mg/dL Creatinine 1.0 (0.7-1.2) mg/dL Est GFR ( Amer) > 60 Est GFR (Non-Af Amer) 55 POC Glucose (mg/dL) 137 H (65-110) mg/dL Random Glucose 139 H (65-105) mg/dL Calcium 7.5 L (8.6-10.4) mg/dl Phosphorus 3.4 (2.5-4.5) mg/dL Magnesium 2.2 (1.6-2.3) mg/dL Arterial Blood Potassium (3.6-5.2) mmol/L Mycoplasma pneumon IgG (<=0.90) Mycoplasma pneumon IgM (<770) U/mL 05/03/17 05/03/17 05/01/17 Range/Units 23:34 17:33 11:08 WBC (4.8-10.8) K/uL RBC (3.80-5.20) Mil/uL Hgb (11.0-16.0) g/dL Hct (34.0-47.0) % MCV (81.0-99.0) fL MCH (27.0-31.0) pg MCHC (33.0-37.0) g/dL RDW (11.5-14.5) % Plt Count (130-400) K/uL MPV (7.2-11.7) fL Neut % (Auto) (50.0-75.0) % Lymph % (Auto) (20.0-40.0) % [place] % (Auto) (0.0-10.0) % Eos % (Auto) (0.0-4.0) % Baso % (Auto) (0.0-2.0) % Neut # (Auto) (1.8-7.0) K/uL Lymph # (Auto) (1.0-4.3) K/uL [place] # (Auto) (0.0-0.8) K/uL Eos # (Auto) (0.0-0.7) K/uL Baso # (Auto) (0.0-0.2) K/uL Neutrophils % (Manual) (50-75) % Band Neutrophils % (0-2) % Lymphocytes % (Manual) (20-40) % Monocytes % (Manual) (0-10) % Platelet Estimate (NORMAL) Polychromasia Hypochromasia (manual) Anisocytosis (manual) Puncture Site pCO2 (35-45) mm/Hg pO2 (80-100) mm/Hg HCO3 (21-28) mmol/L ABG pH (7.35-7.45) ABG Total CO2 (22-28) mmol/L ABG O2 Saturation (95-98) % ABG Base Excess (-2.0-3.0) mmol/L ABG Hemoglobin (11.7-17.4) g/dL ABG Carboxyhemoglobin (0.5-1.5) % POC ABG HHb (Measured) (0.0-5.0) % ABG Methemoglobin (0.0-3.0) % Pierre Test ABG Potassium (3.6-5.2) mmol/L A-a O2 Difference mm/Hg Respiratory Index Hgb O2 Saturation (95.0-98.0) % Glucose (65-105) mg/dl Lactate (0.7-2.1) mmol/L Vent Mode Mechanical Rate FiO2 % Tidal Volume PEEP Sodium (132-148) mmol/L Potassium (3.6-5.2) mmol/L Chloride (98-107) mmol/L Carbon Dioxide (22-30) mmol/L Anion Gap (10-20) BUN (7-17) mg/dL Creatinine (0.7-1.2) mg/dL Est GFR ( Amer) Est GFR (Non-Af Amer) POC Glucose (mg/dL) 121 H 95 (65-110) mg/dL Random Glucose (65-105) mg/dL Calcium (8.6-10.4) mg/dl Phosphorus (2.5-4.5) mg/dL Magnesium (1.6-2.3) mg/dL Arterial Blood Potassium (3.6-5.2) mmol/L Mycoplasma pneumon IgG <=0.90 (<=0.90) Mycoplasma pneumon IgM 128 (<770) U/mL Laboratory Results - last 24 hr 05/01/17 05/03/17 05/03/17 11:08 17:33 23:34 WBC RBC Hgb Hct MCV MCH MCHC RDW Plt Count MPV Neut % (Auto) Lymph % (Auto) [place] % (Auto) Eos % (Auto) Baso % (Auto) Neut # (Auto) Lymph # (Auto) [place] # (Auto) Eos # (Auto) Baso # (Auto) Neutrophils % (Manual) Band Neutrophils % Lymphocytes % (Manual) Monocytes % (Manual) Platelet Estimate Polychromasia Hypochromasia (manual) Anisocytosis (manual) Puncture Site pCO2 pO2 HCO3 ABG pH ABG Total CO2 ABG O2 Saturation ABG Base Excess ABG Hemoglobin ABG Carboxyhemoglobin POC ABG HHb (Measured) ABG Methemoglobin Pierre Test ABG Potassium A-a O2 Difference Respiratory Index Hgb O2 Saturation Glucose Lactate Vent Mode Mechanical Rate FiO2 Tidal Volume PEEP Sodium Potassium Chloride Carbon Dioxide Anion Gap BUN Creatinine Est GFR ( Amer) Est GFR (Non-Af Amer) POC Glucose (mg/dL) 95 121 H Random Glucose Calcium Phosphorus Magnesium Arterial Blood Potassium Mycoplasma pneumon IgG <=0.90 Mycoplasma pneumon IgM 128 05/04/17 05/04/17 05/04/17 05:20 06:24 06:29 WBC RBC Hgb Hct MCV MCH MCHC RDW Plt Count MPV Neut % (Auto) Lymph % (Auto) [place] % (Auto) Eos % (Auto) Baso % (Auto) Neut # (Auto) Lymph # (Auto) [place] # (Auto) Eos # (Auto) Baso # (Auto) Neutrophils % (Manual) Band Neutrophils % Lymphocytes % (Manual) Monocytes % (Manual) Platelet Estimate Polychromasia Hypochromasia (manual) Anisocytosis (manual) Puncture Site Rr pCO2 46 H pO2 93 HCO3 27.4 ABG pH 7.40 ABG Total CO2 29.9 H ABG O2 Saturation 98.7 H ABG Base Excess 3.2 H ABG Hemoglobin 8.7 L ABG Carboxyhemoglobin 1.8 H POC ABG HHb (Measured) 1.3 ABG Methemoglobin 1.0 Pierre Test Pos ABG Potassium A-a O2 Difference 420.0 Respiratory Index 4.5 Hgb O2 Saturation 95.8 Glucose Lactate Vent Mode Prvc Mechanical Rate 20 FiO2 80.0 Tidal Volume 450 PEEP 12 Sodium 138 Potassium 3.9 Chloride 102 Carbon Dioxide 26 Anion Gap 15 BUN 60 H Creatinine 1.0 Est GFR ( Amer) > 60 Est GFR (Non-Af Amer) 55 POC Glucose (mg/dL) 137 H Random Glucose 139 H Calcium 7.5 L Phosphorus 3.4 Magnesium 2.2 Arterial Blood Potassium Mycoplasma pneumon IgG Mycoplasma pneumon IgM 05/04/17 05/04/17 05/04/17 06:30 08:22 12:14 WBC 28.9 H RBC 2.98 L Hgb 8.4 L Hct 25.0 L MCV 84.0 MCH 28.2 MCHC 33.6 RDW 15.1 H Plt Count 287 MPV 7.9 Neut % (Auto) 94.2 H Lymph % (Auto) 3.1 L [place] % (Auto) 2.5 Eos % (Auto) 0.1 Baso % (Auto) 0.1 Neut # (Auto) 27.2 H Lymph # (Auto) 0.9 L [place] # (Auto) 0.7 Eos # (Auto) 0.0 Baso # (Auto) 0.0 Neutrophils % (Manual) 92 H Band Neutrophils % 1 Lymphocytes % (Manual) 3 L Monocytes % (Manual) 4 Platelet Estimate Normal Polychromasia Slight Hypochromasia (manual) Slight Anisocytosis (manual) Slight Puncture Site Rr pCO2 50 H pO2 74 L HCO3 27.5 ABG pH 7.38 ABG Total CO2 31.1 H ABG O2 Saturation 97.5 ABG Base Excess 3.4 H ABG Hemoglobin ABG Carboxyhemoglobin POC ABG HHb (Measured) ABG Methemoglobin Pierre Test Pos ABG Potassium 3.9 A-a O2 Difference 363.0 Respiratory Index 4.9 Hgb O2 Saturation Glucose 115 H Lactate 2.2 H Vent Mode Prvc Mechanical Rate 18 FiO2 70.0 Tidal Volume 350 PEEP 14 Sodium 144.0 Potassium Chloride 108.0 H Carbon Dioxide Anion Gap BUN Creatinine Est GFR ( Amer) Est GFR (Non-Af Amer) POC Glucose (mg/dL) 132 H Random Glucose Calcium Phosphorus Magnesium Arterial Blood Potassium 3.9 Mycoplasma pneumon IgG Mycoplasma pneumon IgM Fingerstick Blood Sugar Results: 137 - Procedures Procedures (Free Text): - Constitutional Appears: intubated, altered, non-responsive to verbal stimuli - Head Exam Head Exam: ATRAUMATIC, NORMAL INSPECTION, NORMOCEPHALIC - ENT Exam ENT Exam: Mucous Membranes Moist, Normal Exam - Respiratory Exam Respiratory Exam: Rhonchi (mild), NORMAL BREATHING PATTERN. absent: Accessory Muscle Use, Respiratory Distress - Cardiovascular Exam Cardiovascular Exam: REGULAR RHYTHM - GI/Abdominal Exam GI & Abdominal Exam: Distended (mildly), Guarding (lower quadrants), Soft, Tenderness. absent: Firm, Rebound - Extremities Exam Extremities Exam: Full ROM, Normal Inspection - Neurological Exam Neurological Exam: Altered, not awake - Skin Skin Exam: Dry, Intact, Normal Color, Warm Review of Systems - Review of Systems Systems not reviewed;Unavailable: Intubated Assessment/Plan - Assessment and Plan (Free Text) Assessment: Assessment: 66F w/ascites as seen on CT of abdomen, pelvic mass: ID: [id number] due to aspiration pneumonia which occurred post diagnostic laparoscopy and left salpingo-oopherectomyLeukocytosis, UTI Infectious Disease, Dr Grant on board General Surgery Dr Hollingsworth on board POD#4/ s/p diagnostic laparascopy with Left salpino-oopherectomy with Dr Hollingsworth 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 Azithromycin 500mg IV QD started 05/01/17 Zyvox 600mg IV BID started 05/01/17 Cefepime 1g IV BID started 05/01/17 Follow up mycoplasma Legionella NEGATIVE Procalcitonin HIGH Albumin 15% 12.5gm x 3 given on 05/01/17 neuro: sedated Dilaudid 0.5mg IV Q4H PRN for pain control On Precedex and Diprivan Pulm: hx of COPD, L PNA/effuision, ARDS Intubated on prvc FiO2 70% - evaluate for trach on 05/07/17 if no improvement 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 differential include (MPGN due to Hep C, FSGS due to solitary kidney, Membranous nephropathy possibly due to undiagnosed malignancy) will check anca/dna ab as proteinuria and microscopic hematuria on UA Sodium Bicarb 650 mg PO QID Phoslo 667mg PO TID Lasix 80mg IV BID 500mL fluid challenge 05/01/17 Electrolytes: hyponatremia Wellness Nurse Dr Andrade on board Hyponatremia likely multi-factorial: thiazide diuretics, hypotonic fluids ? 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 RECEIVABLE COORDINATOR Dr Barajas consulted - signed off POD#4/ s/p diagnostic laparascopy with Left salpino-oopherectomy with Dr Hollingsworth PPx: Protonix 40mg PO QD Heparin 5,000 units <Dawood Ramirez - Last Filed: 05/04/17 18:01> CCU Objective - Vital Signs / Intake & Output Vital Signs (Last 4 hours): Vital Signs Pulse Resp BP Pulse Ox 05/04/17 16:03 95 H 23 186/85 H 97 05/04/17 15:16 100 H 28 H 176/78 H 95 05/04/17 14:02 87 23 166/64 H 97 Intake and Output (Last 8hrs): Intake & Output 05/04/17 05/04/17 05/04/17 06:59 14:59 22:59 Intake Total 571.3 88.4 40 Output Total 705 60 Balance -133.7 28.4 40 Intake: IV 100 75 40 Intake, IV Amount 471.3 13.4 Right Medial Port 26.6 3.4 Internal Jugular Right Proximal Port 94.7 10 Internal Jugular Right Proximal TLC 350 Output: Urine 705 60 Urethral (Tay) 705 60 Other: # Bowel Movements 3 - Medications Active Medications: Active Medications Generic Name Dose Route Start Last Admin Trade Name Freq PRN Reason Stop Dose Admin Albuterol/Ipratropium 3 ml 04/27/17 20:00 05/04/17 14:52 Duoneb 3 Mg/0.5 Mg (3 Ml) Ud INH 3 ml RQ6 ALEX Administration Enoxaparin Sodium 40 mg 05/04/17 10:00 05/04/17 11:06 Lovenox SC 40 mg DAILY ALEX Administration Furosemide 80 mg 05/04/17 10:00 05/04/17 11:01 Lasix IVP 80 mg Q12 ALEX Administration Linezolid 600 mg in 300 mls @ 300 mls/hr 05/01/17 12:00 05/04/17 11:05 Zyvox 600mg/300ml D5w IVPB 300 mls/hr Q12H ALEX Administration Cefepime HCl 1 gm in 50 mls @ 100 mls/hr 05/01/17 11:30 05/04/17 11:03 Maxipime Iv 1 Gm Premix IVPB 100 mls/hr Q12H ALEX Administration Midazolam HCl 100 mg/ Sodium 100 mls @ 1.32 mls/hr 05/01/17 23:45 05/02/17 23 :35 Chloride IV Not Given .Q24H ALEX Protocol 0.02 MG/KG/HR Propofol 1,000 mg in 100 mls @ 1.985 mls/hr 05/02/17 02:14 05/04/17 16:30 Diprivan IV 10.07 mcg/kg/min .Q24H PRN 4 mls/hr TITRATE PER MD ORDER Titration Protocol 5 MCG/KG/MIN Dexmedetomidine HCl 200 mcg/ 50 mls @ 3.31 mls/hr 05/03/17 19:37 05/04/17 16: 00 Sodium Chloride IV 0.5 mcg/kg/hr TITR PRN 8.29 mls/hr Sedation Titration Protocol 0.2 MCG/KG/HR Fluconazole 100 mls @ 100 mls/hr 05/04/17 19:00 Diflucan Iv 200 Mg/100 Ml Ns IVPB Q24H ALEX Insulin Aspart 0 unit 05/03/17 12:00 05/04/17 12:33 Novolog SC Not Given Q6 [facility] Protocol Lorazepam 2 mg 05/01/17 21:54 05/02/17 02:05 Ativan IVP 2 mg Q4H PRN Administration Anxiety Methylprednisolone 40 mg 05/02/17 22:00 05/04/17 15:00 Solu-Medrol IVP 40 mg Q8 ALEX Administration Pantoprazole Sodium 40 mg 05/05/17 10:00 Protonix Ec Tab PO DAILY ALEX Sodium Bicarbonate 650 mg 05/04/17 10:30 05/04/17 17:16 Sodium Bicarbonate Tab PO 650 mg BID ALEX Administration Vitamin A 1 ea 05/01/17 12:38 05/03/17 22:00 Vitamin A & D Oint Ud Foilpak TOP 1 ea Q4 PRN Administration dry lips - Patient Studies Lab Studies: Microbiology Studies 05/01/17 Unknown Gram Stain - Final Trachasp Sputum Culture - Final Yeast Species Lab Studies 05/04/17 05/04/17 05/04/17 Range/Units 12:14 08:22 06:30 WBC 28.9 H (4.8-10.8) K/uL RBC 2.98 L (3.80-5.20) Mil/uL Hgb 8.4 L (11.0-16.0) g/dL Hct 25.0 L (34.0-47.0) % MCV 84.0 (81.0-99.0) fL MCH 28.2 (27.0-31.0) pg MCHC 33.6 (33.0-37.0) g/dL RDW 15.1 H (11.5-14.5) % Plt Count 287 (130-400) K/uL MPV 7.9 (7.2-11.7) fL Neut % (Auto) 94.2 H (50.0-75.0) % Lymph % (Auto) 3.1 L (20.0-40.0) % [place] % (Auto) 2.5 (0.0-10.0) % Eos % (Auto) 0.1 (0.0-4.0) % Baso % (Auto) 0.1 (0.0-2.0) % Neut # (Auto) 27.2 H (1.8-7.0) K/uL Lymph # (Auto) 0.9 L (1.0-4.3) K/uL [place] # (Auto) 0.7 (0.0-0.8) K/uL Eos # (Auto) 0.0 (0.0-0.7) K/uL Baso # (Auto) 0.0 (0.0-0.2) K/uL Neutrophils % (Manual) 92 H (50-75) % Band Neutrophils % 1 (0-2) % Lymphocytes % (Manual) 3 L (20-40) % Monocytes % (Manual) 4 (0-10) % Platelet Estimate Normal (NORMAL) Polychromasia Slight Hypochromasia (manual) Slight Anisocytosis (manual) Slight Puncture Site Rr pCO2 50 H (35-45) mm/Hg pO2 74 L (80-100) mm/Hg HCO3 27.5 (21-28) mmol/L ABG pH 7.38 (7.35-7.45) ABG Total CO2 31.1 H (22-28) mmol/L ABG O2 Saturation 97.5 (95-98) % ABG Base Excess 3.4 H (-2.0-3.0) mmol/L ABG Hemoglobin (11.7-17.4) g/dL ABG Carboxyhemoglobin (0.5-1.5) % POC ABG HHb (Measured) (0.0-5.0) % ABG Methemoglobin (0.0-3.0) % Pierre Test Pos ABG Potassium 3.9 (3.6-5.2) mmol/L A-a O2 Difference 363.0 mm/Hg Respiratory Index 4.9 Hgb O2 Saturation (95.0-98.0) % Glucose 115 H (65-105) mg/dl Lactate 2.2 H (0.7-2.1) mmol/L Vent Mode Prvc Mechanical Rate 18 FiO2 70.0 % Tidal Volume 350 PEEP 14 Sodium 144.0 (132-148) mmol/L Potassium (3.6-5.2) mmol/L Chloride 108.0 H (98-107) mmol/L Carbon Dioxide (22-30) mmol/L Anion Gap (10-20) BUN (7-17) mg/dL Creatinine (0.7-1.2) mg/dL Est GFR ( Amer) Est GFR (Non-Af Amer) POC Glucose (mg/dL) 132 H (65-110) mg/dL Random Glucose (65-105) mg/dL Calcium (8.6-10.4) mg/dl Phosphorus (2.5-4.5) mg/dL Magnesium (1.6-2.3) mg/dL Arterial Blood Potassium 3.9 (3.6-5.2) mmol/L Mycoplasma pneumon IgG (<=0.90) Mycoplasma pneumon IgM (<770) U/mL 05/04/17 05/04/17 05/04/17 Range/Units 06:29 06:24 05:20 WBC (4.8-10.8) K/uL RBC (3.80-5.20) Mil/uL Hgb (11.0-16.0) g/dL Hct (34.0-47.0) % MCV (81.0-99.0) fL MCH (27.0-31.0) pg MCHC (33.0-37.0) g/dL RDW (11.5-14.5) % Plt Count (130-400) K/uL MPV (7.2-11.7) fL Neut % (Auto) (50.0-75.0) % Lymph % (Auto) (20.0-40.0) % [place] % (Auto) (0.0-10.0) % Eos % (Auto) (0.0-4.0) % Baso % (Auto) (0.0-2.0) % Neut # (Auto) (1.8-7.0) K/uL Lymph # (Auto) (1.0-4.3) K/uL [place] # (Auto) (0.0-0.8) K/uL Eos # (Auto) (0.0-0.7) K/uL Baso # (Auto) (0.0-0.2) K/uL Neutrophils % (Manual) (50-75) % Band Neutrophils % (0-2) % Lymphocytes % (Manual) (20-40) % Monocytes % (Manual) (0-10) % Platelet Estimate (NORMAL) Polychromasia Hypochromasia (manual) Anisocytosis (manual) Puncture Site Rr pCO2 46 H (35-45) mm/Hg pO2 93 (80-100) mm/Hg HCO3 27.4 (21-28) mmol/L ABG pH 7.40 (7.35-7.45) ABG Total CO2 29.9 H (22-28) mmol/L ABG O2 Saturation 98.7 H (95-98) % ABG Base Excess 3.2 H (-2.0-3.0) mmol/L ABG Hemoglobin 8.7 L (11.7-17.4) g/dL ABG Carboxyhemoglobin 1.8 H (0.5-1.5) % POC ABG HHb (Measured) 1.3 (0.0-5.0) % ABG Methemoglobin 1.0 (0.0-3.0) % Pierre Test Pos ABG Potassium (3.6-5.2) mmol/L A-a O2 Difference 420.0 mm/Hg Respiratory Index 4.5 Hgb O2 Saturation 95.8 (95.0-98.0) % Glucose (65-105) mg/dl Lactate (0.7-2.1) mmol/L Vent Mode Prvc Mechanical Rate 20 FiO2 80.0 % Tidal Volume 450 PEEP 12 Sodium 138 (132-148) mmol/L Potassium 3.9 (3.6-5.2) mmol/L Chloride 102 (98-107) mmol/L Carbon Dioxide 26 (22-30) mmol/L Anion Gap 15 (10-20) BUN 60 H (7-17) mg/dL Creatinine 1.0 (0.7-1.2) mg/dL Est GFR ( Amer) > 60 Est GFR (Non-Af Amer) 55 POC Glucose (mg/dL) 137 H (65-110) mg/dL Random Glucose 139 H (65-105) mg/dL Calcium 7.5 L (8.6-10.4) mg/dl Phosphorus 3.4 (2.5-4.5) mg/dL Magnesium 2.2 (1.6-2.3) mg/dL Arterial Blood Potassium (3.6-5.2) mmol/L Mycoplasma pneumon IgG (<=0.90) Mycoplasma pneumon IgM (<770) U/mL 05/03/17 05/01/17 Range/Units 23:34 11:08 WBC (4.8-10.8) K/uL RBC (3.80-5.20) Mil/uL Hgb (11.0-16.0) g/dL Hct (34.0-47.0) % MCV (81.0-99.0) fL MCH (27.0-31.0) pg MCHC (33.0-37.0) g/dL RDW (11.5-14.5) % Plt Count (130-400) K/uL MPV (7.2-11.7) fL Neut % (Auto) (50.0-75.0) % Lymph % (Auto) (20.0-40.0) % [place] % (Auto) (0.0-10.0) % Eos % (Auto) (0.0-4.0) % Baso % (Auto) (0.0-2.0) % Neut # (Auto) (1.8-7.0) K/uL Lymph # (Auto) (1.0-4.3) K/uL [place] # (Auto) (0.0-0.8) K/uL Eos # (Auto) (0.0-0.7) K/uL Baso # (Auto) (0.0-0.2) K/uL Neutrophils % (Manual) (50-75) % Band Neutrophils % (0-2) % Lymphocytes % (Manual) (20-40) % Monocytes % (Manual) (0-10) % Platelet Estimate (NORMAL) Polychromasia Hypochromasia (manual) Anisocytosis (manual) Puncture Site pCO2 (35-45) mm/Hg pO2 (80-100) mm/Hg HCO3 (21-28) mmol/L ABG pH (7.35-7.45) ABG Total CO2 (22-28) mmol/L ABG O2 Saturation (95-98) % ABG Base Excess (-2.0-3.0) mmol/L ABG Hemoglobin (11.7-17.4) g/dL ABG Carboxyhemoglobin (0.5-1.5) % POC ABG HHb (Measured) (0.0-5.0) % ABG Methemoglobin (0.0-3.0) % Pierre Test ABG Potassium (3.6-5.2) mmol/L A-a O2 Difference mm/Hg Respiratory Index Hgb O2 Saturation (95.0-98.0) % Glucose (65-105) mg/dl Lactate (0.7-2.1) mmol/L Vent Mode Mechanical Rate FiO2 % Tidal Volume PEEP Sodium (132-148) mmol/L Potassium (3.6-5.2) mmol/L Chloride (98-107) mmol/L Carbon Dioxide (22-30) mmol/L Anion Gap (10-20) BUN (7-17) mg/dL Creatinine (0.7-1.2) mg/dL Est GFR ( Amer) Est GFR (Non-Af Amer) POC Glucose (mg/dL) 121 H (65-110) mg/dL Random Glucose (65-105) mg/dL Calcium (8.6-10.4) mg/dl Phosphorus (2.5-4.5) mg/dL Magnesium (1.6-2.3) mg/dL Arterial Blood Potassium (3.6-5.2) mmol/L Mycoplasma pneumon IgG <=0.90 (<=0.90) Mycoplasma pneumon IgM 128 (<770) U/mL Laboratory Results - last 24 hr 05/01/17 05/03/17 05/04/17 11:08 23:34 05:20 WBC RBC Hgb Hct MCV MCH MCHC RDW Plt Count MPV Neut % (Auto) Lymph % (Auto) [place] % (Auto) Eos % (Auto) Baso % (Auto) Neut # (Auto) Lymph # (Auto) [place] # (Auto) Eos # (Auto) Baso # (Auto) Neutrophils % (Manual) Band Neutrophils % Lymphocytes % (Manual) Monocytes % (Manual) Platelet Estimate Polychromasia Hypochromasia (manual) Anisocytosis (manual) Puncture Site Rr pCO2 46 H pO2 93 HCO3 27.4 ABG pH 7.40 ABG Total CO2 29.9 H ABG O2 Saturation 98.7 H ABG Base Excess 3.2 H ABG Hemoglobin 8.7 L ABG Carboxyhemoglobin 1.8 H POC ABG HHb (Measured) 1.3 ABG Methemoglobin 1.0 Pierre Test Pos ABG Potassium A-a O2 Difference 420.0 Respiratory Index 4.5 Hgb O2 Saturation 95.8 Glucose Lactate Vent Mode Prvc Mechanical Rate 20 FiO2 80.0 Tidal Volume 450 PEEP 12 Sodium Potassium Chloride Carbon Dioxide Anion Gap BUN Creatinine Est GFR ( Amer) Est GFR (Non-Af Amer) POC Glucose (mg/dL) 121 H Random Glucose Calcium Phosphorus Magnesium Arterial Blood Potassium Mycoplasma pneumon IgG <=0.90 Mycoplasma pneumon IgM 128 05/04/17 05/04/17 05/04/17 06:24 06:29 06:30 WBC 28.9 H RBC 2.98 L Hgb 8.4 L Hct 25.0 L MCV 84.0 MCH 28.2 MCHC 33.6 RDW 15.1 H Plt Count 287 MPV 7.9 Neut % (Auto) 94.2 H Lymph % (Auto) 3.1 L [place] % (Auto) 2.5 Eos % (Auto) 0.1 Baso % (Auto) 0.1 Neut # (Auto) 27.2 H Lymph # (Auto) 0.9 L [place] # (Auto) 0.7 Eos # (Auto) 0.0 Baso # (Auto) 0.0 Neutrophils % (Manual) 92 H Band Neutrophils % 1 Lymphocytes % (Manual) 3 L Monocytes % (Manual) 4 Platelet Estimate Normal Polychromasia Slight Hypochromasia (manual) Slight Anisocytosis (manual) Slight Puncture Site pCO2 pO2 HCO3 ABG pH ABG Total CO2 ABG O2 Saturation ABG Base Excess ABG Hemoglobin ABG Carboxyhemoglobin POC ABG HHb (Measured) ABG Methemoglobin Pierre Test ABG Potassium A-a O2 Difference Respiratory Index Hgb O2 Saturation Glucose Lactate Vent Mode Mechanical Rate FiO2 Tidal Volume PEEP Sodium 138 Potassium 3.9 Chloride 102 Carbon Dioxide 26 Anion Gap 15 BUN 60 H Creatinine 1.0 Est GFR ( Amer) > 60 Est GFR (Non-Af Amer) 55 POC Glucose (mg/dL) 137 H Random Glucose 139 H Calcium 7.5 L Phosphorus 3.4 Magnesium 2.2 Arterial Blood Potassium Mycoplasma pneumon IgG Mycoplasma pneumon IgM 05/04/17 05/04/17 08:22 12:14 WBC RBC Hgb Hct MCV MCH MCHC RDW Plt Count MPV Neut % (Auto) Lymph % (Auto) [place] % (Auto) Eos % (Auto) Baso % (Auto) Neut # (Auto) Lymph # (Auto) [place] # (Auto) Eos # (Auto) Baso # (Auto) Neutrophils % (Manual) Band Neutrophils % Lymphocytes % (Manual) Monocytes % (Manual) Platelet Estimate Polychromasia Hypochromasia (manual) Anisocytosis (manual) Puncture Site Rr pCO2 50 H pO2 74 L HCO3 27.5 ABG pH 7.38 ABG Total CO2 31.1 H ABG O2 Saturation 97.5 ABG Base Excess 3.4 H ABG Hemoglobin ABG Carboxyhemoglobin POC ABG HHb (Measured) ABG Methemoglobin Pierre Test Pos ABG Potassium 3.9 A-a O2 Difference 363.0 Respiratory Index 4.9 Hgb O2 Saturation Glucose 115 H Lactate 2.2 H Vent Mode Prvc Mechanical Rate 18 FiO2 70.0 Tidal Volume 350 PEEP 14 Sodium 144.0 Potassium Chloride 108.0 H Carbon Dioxide Anion Gap BUN Creatinine Est GFR ( Amer) Est GFR (Non-Af Amer) POC Glucose (mg/dL) 132 H Random Glucose Calcium Phosphorus Magnesium Arterial Blood Potassium 3.9 Mycoplasma pneumon IgG Mycoplasma pneumon IgM Attending/Attestation - Attestation I have personally seen and examined this patient.: Yes I have fully participated in the care of the patient.: Yes I have reviewed all pertinent clinical information: Yes Notes (Text): 05/04/17 18:00 I have seen and examined the patient. Medical records, lab studies, and imaging were reviewed by me and a management plan was formulated on multidisciplinary rounds with resident Dr. Juan. I agree with their documented assessment and plan. 66yo F. PMHx diastolic HF, HTN, COPD, CKD, left nephrectomy, hepatitis C. s/p left ovarian salpingo- oopherectomy, post-op c/b aspiration pneumonitis with subsequent ARDS. Neuro: off of paralytics. mild sedation with propofol gtt and precedex gtt. Pulm: aspiration pneumonia/pneumonitis with moderate ARDS. lung protective strategies. CV: hemodynamically stable. Hem: f/u ovarian pathology. Renal: nephrotic syndrome, continue oral sodium bicarbonate. increased diuresis lasix 80mg IV q12h. Endo: GI: NPO, Jevity@35 ID: [id number] UTI, continue Zyvox, Cefepime, Azithromycin. DVT proph - lovenox GI proph - protonix po tay for strict I/O's during acute illness Code status - full code Critical Care Time 35 minutes. Multi-disciplinary rounds were performed with house staff, nursing, speech therapy, respiratory therapy, pharmacy and nutrition with integrated input from the primary team/attending and other consulting services. The documented time is cumulative and includes review of patient data/exams/labs/chart review and examination of the patient on rounds and throughout the day; time is exclusive of any procedures or teaching time.
--- NOTE | 2017-05-04 17:45 | CP.PCM.PN ---
Subjective - Date & Time of Evaluation Date of Evaluation: 05/04/17 Time of Evaluation: 09:00 - Subjective Subjective: events noted diflucan added Objective - Vital Signs/Intake and Output Vital Signs (last 24 hours): Temp Pulse Resp BP Pulse Ox 98.8 F 95 H 23 186/85 H 97 05/04/17 04:00 05/04/17 16:03 05/04/17 16:03 05/04/17 16:03 05/04/17 16:03 Intake and Output: 05/04/17 05/04/17 06:59 18:59 Intake Total 661.9 128.4 Output Total 1130 60 Balance -468.1 68.4 - Medications Medications: Current Medications Albuterol/Ipratropium (Duoneb 3 Mg/0.5 Mg (3 Ml) Ud) 3 ml INH RQ6 ALEX Last Admin: 05/04/17 14:52 Dose: 3 ml Enoxaparin Sodium (Lovenox) 40 mg SC DAILY [facility] Last Admin: 05/04/17 11:06 Dose: 40 mg Furosemide (Lasix) 80 mg IVP Q12 ALEX Last Admin: 05/04/17 11:01 Dose: 80 mg Linezolid (Zyvox 600mg/300ml D5w) 600 mg in 300 mls @ 300 mls/hr IVPB Q12H [facility] Last Admin: 05/04/17 11:05 Dose: 300 mls/hr Cefepime HCl (Maxipime Iv 1 Gm Premix) 1 gm in 50 mls @ 100 mls/hr IVPB Q12H [facility] Last Admin: 05/04/17 11:03 Dose: 100 mls/hr Midazolam HCl 100 mg/ Sodium (Chloride) 100 mls @ 1.32 mls/hr IV .Q24H [facility]; 0.02 MG/KG/HR PRN Reason: Protocol Last Admin: 05/02/17 23:35 Dose: Not Given Propofol (Diprivan) 1,000 mg in 100 mls @ 1.985 mls/hr IV .Q24H PRN; Protocol; 5 MCG/KG/MIN PRN Reason: TITRATE PER MD ORDER Last Titration: 05/04/17 16:30 Dose: 10.07 mcg/kg/min, 4 mls/hr Dexmedetomidine HCl 200 mcg/ (Sodium Chloride) 50 mls @ 3.31 mls/hr IV TITR PRN ; Protocol; 0.2 MCG/KG/HR PRN Reason: Sedation Last Titration: 05/04/17 16:00 Dose: 0.5 mcg/kg/hr, 8.29 mls/hr Fluconazole (Diflucan Iv 200 Mg/100 Ml Ns) 100 mls @ 100 mls/hr IVPB DAILY ALEX Insulin Aspart (Novolog) 0 unit SC Q6 ALEX PRN Reason: Protocol Last Admin: 05/04/17 12:33 Dose: Not Given Lorazepam (Ativan) 2 mg IVP Q4H PRN PRN Reason: Anxiety Last Admin: 05/02/17 02:05 Dose: 2 mg Methylprednisolone (Solu-Medrol) 40 mg IVP Q8 ALEX Last Admin: 05/04/17 15:00 Dose: 40 mg Pantoprazole Sodium (Protonix Ec Tab) 40 mg PO DAILY ALEX Sodium Bicarbonate (Sodium Bicarbonate Tab) 650 mg PO BID ALEX Last Admin: 05/04/17 17:16 Dose: 650 mg Vitamin A (Vitamin A & D Oint Ud Foilpak) 1 ea TOP Q4 PRN PRN Reason: dry lips Last Admin: 05/03/17 22:00 Dose: 1 ea - Labs Labs: 05/04/17 06:30 05/04/17 06:29 PT 11.1 SECONDS (9.7-12.2) 05/01/17 06:17 INR 1.0 05/01/17 06:17 APTT 23 SECONDS (21-34) 05/01/17 06:17 Assessment and Plan (1) Pelvic mass in female Status: Acute (2) Abdominal pain Status: Acute (3) Leukocytosis Status: Acute
[2017-05-04] MEDS: Fluconazole IV 200mg/100 ml NS 100 ML IVPB SCH (19:04)
--- NOTE | 2017-05-05 00:01 | PN ---
DATE: LOCATION: ICU 7. SUBJECTIVE: This is a 66 years old female, seen and examined early in rounds without significant clinical changes and no reported active bleeding. The patient, however, is still intubated to bed, sedated, and the NG tube is still in place. The entire chart is reviewed including, but not limited to the most recent lab and radiologic study results, current and the previous medication list, current and the previous medical events, allergy to medications list. Case discussed at length with ICU staff as well as also wedding consultant on the case. Most recent chest x-ray showed evidence of extensive bilateral diffuse pneumonia with possible pulmonary edema. Today's lab showed leukocytosis at 28.9, hemoglobin 8.4, hematocrit 25.0, normal platelet count with abnormal ABGs, and the blood glucose level 132, BUN 60 with normal creatinine, calcium 7.5 low. PHYSICAL EXAMINATION: GENERAL: A 66-year-old female, afebrile, with pulse of 72, blood pressure of 164/56. HEENT: Showed pale, dry oral mucous membranes. Nonicteric sclerae. LUNGS: Few scattered crepitations. Decreased air entry at bases. HEART: Positive S1 and S2. ABDOMEN: Mild distention. NG tube is in place. No mass or organomegaly. No rebound tenderness or guarding. Covered with clean dressing. EXTREMITIES: With lower extremity mild edematous changes. No clubbing or cyanosis. NEUROLOGIC: No reported focal neurological deficits, sensory or motor. IMPRESSION: 1. Pneumonia with possible acute respiratory distress syndrome and pulmonary edema, still intubated to vent. 2. Acute renal insufficiency. The patient is still on high dose of Lasix. 3. Known history of hyperlipidemia. 4. Anemia secondary to above. 5. Adrenal mass, with status post left oophorectomy. 6. Malnutrition with hypoalbuminemia. SUGGESTIONS: 1. Agree with your plan. 2. Peripheral versus central hyperalimentation. 3. The patient may need PEG insertion after calorie counting, that to be discussed with admitting medical team health as well as the patient's own daughter. 4. Further recommendation to follow. Thank you for letting me to participate in your patient's case management. Shantel Lakhani MD
[2017-05-05] MEDS: (Novolog) Insulin Aspart, Recombinant 100 u/ml 10 ml vial SC SCH ×4 (00:16→18:28)
[2017-05-05] MEDS: Linezolid 600 mg in D5W 300 ml 600 MG/300 ML BAG IVPB SCH ×2 (00:19→12:00)
[2017-05-05] MEDS: Albuterol-Ipratrop 3 mg / 0.5 (3 ml) UD INH SCH ×4 (02:12→19:18)
[2017-05-05] MEDS: Dexmedetomidine Hydrochloride 200 MCG in Sodium Chloride 0.9% 48 ML IV PRN (02:40)
[2017-05-05] MEDS: Propofol 10 mg/ml 1,000 MG/100 ML VIAL IV PRN ×2 (03:07→18:32)
[2017-05-05 05:34] LABS: ABG ALLEN TEST POS; ARTERIAL BLOOD GAS HCO3 30.5 mmol/L (21-28); ARTERIAL BLOOD GAS HEMOGLOBIN 8.4 g/dL (11.7-17.4); ARTERIAL BLOOD GAS PCO2 53 mm/Hg (35-45); ARTERIAL BLOOD GAS PO2 182 mm/Hg (80-100); ARTERIAL BLOOD GAS TCO2 34.4 mmol/L (22-28)
[2017-05-05 06:51] LABS: BASO # 0.1 K/uL (0.0-0.2); BASO % 0.4 % (0.0-2.0); HEMOGLOBIN 8.4 g/dL (11.0-16.0); LYMPH # 0.6 K/uL (1.0-4.3); LYMPH % 2.6 % (20.0-40.0); MEAN CELL VOLUME 85.3 fL (81.0-99.0); MEAN CORPUSCULAR HEMOGLOBIN 28.4 pg (27.0-31.0); MEAN CORPUSCULAR HGB CONC 33.3 g/dL (33.0-37.0); MEAN PLATELET VOLUME 8.7 fL (7.2-11.7); MONO # 0.6 K/uL (0.0-0.8); MONO % 2.4 % (0.0-10.0); NEUT # 22.1 K/uL (1.8-7.0); NEUT % 94.6 % (50.0-75.0); PLATELET COUNT 287 K/uL (130-400); RBC 2.97 Mil/uL (3.80-5.20); RED CELL DISTRIBUTION WIDTH 15.1 % (11.5-14.5); WHITE BLOOD COUNT 23.3 K/uL (4.8-10.8)
[2017-05-05] MEDS: MethylPREDNISolone 40 mg Vial IVP SCH ×3 (06:54→21:21)
[2017-05-05 07:22] LABS: ALBUMIN 2.7 g/dL (3.5-5.0); ALT/SGPT 60 U/L (9-52); AST/SGOT 34 U/L (14-36); BLOOD UREA NITROGEN 64 mg/dL (7-17); CALCIUM 7.8 mg/dl (8.6-10.4); GFR AFRICAN-AMERICAN > 60; GFR NON-AFRICAN AMERICAN 55
[2017-05-05] MEDS: Dexmedetomidine Hydrochloride 400 MCG in Sodium Chloride 0.9% 96 ML IV PRN ×2 (08:25→21:00)
--- NOTE | 2017-05-05 08:27 | RAD ---
Chest x-ray single frontal view History: Respiratory distress. Comparison: 05/04/2017 Findings: NG tube appears retracted to the level of the mid esophagus. Clinical correlation and or replacement is recommended if clinically indicated. Other lines and tubes are in stable position. Moderate to severe venous congestion with bibasilar airspace opacities and small bilateral pleural effusions. Patchy consolidative changes at the right lung base. Degenerative changes in the spine and shoulders. Mild cardiomegaly. Impression: 1. NG tube appears retracted to the level of the mid esophagus. Clinical correlation and or replacement is recommended if clinically indicated. 2. Moderate to severe venous congestion with bibasilar airspace opacities and small bilateral pleural effusions. 3. Patchy consolidative changes at the right lung base. 4. Degenerative changes in the spine and shoulders. 5. Mild cardiomegaly.
[2017-05-05 08:54] LABS: BANDS 2 % (0-2); LYMPHOCYTE 3 % (20-40); MONOCYTE 3 % (0-10); NEUTROPHIL 92 % (50-75); TOTAL CELLS COUNTED 100
[2017-05-05 08:55] LABS: ANISOCYTOSIS SLIGHT; HYPOCHROMIC SLIGHT; PLATELET ESTIMATE NORMAL (NORMAL); POLYCHROMIC SLIGHT
[2017-05-05 08:56] LABS: TARGET CELLS SLIGHT
[2017-05-05] MEDS ORDERED: Pantoprazole 40 mg EC Tab PO SCH (10:00)
[2017-05-05] MEDS: Vitamins A & D Oint UD Foilpak TOP PRN ×2 (10:32→21:02)
[2017-05-05] MEDS: Enoxaparin 40 mg Syringe SC SCH (10:35)
--- NOTE | 2017-05-05 10:47 | CP.PCM.PN ---
Subjective - Date & Time of Evaluation Date of Evaluation: 05/05/17 Time of Evaluation: 10:45 - Subjective Subjective: PT STILL ON VENTILATOR Objective - Vital Signs/Intake and Output Vital Signs (last 24 hours): Temp Pulse Resp BP Pulse Ox 97.4 F L 96 H 16 175/65 H 100 05/05/17 08:00 05/05/17 08:36 05/05/17 08:36 05/05/17 10:31 05/05/17 08:36 Intake and Output: 05/05/17 05/05/17 06:59 18:59 Intake Total 1467.6 94.8 Output Total 1560 125 Balance -92.4 -30.2 - Medications Medications: Current Medications Albuterol/Ipratropium (Duoneb 3 Mg/0.5 Mg (3 Ml) Ud) 3 ml INH RQ6 ALEX Last Admin: 05/05/17 08:03 Dose: 3 ml Enoxaparin Sodium (Lovenox) 40 mg SC DAILY ALEX Last Admin: 05/05/17 10:35 Dose: 40 mg Furosemide (Lasix) 80 mg IVP Q12 ALEX Last Admin: 05/05/17 10:31 Dose: 80 mg Linezolid (Zyvox 600mg/300ml D5w) 600 mg in 300 mls @ 300 mls/hr IVPB Q12H ALEX Last Admin: 05/05/17 00:19 Dose: 300 mls/hr Cefepime HCl (Maxipime Iv 1 Gm Premix) 1 gm in 50 mls @ 100 mls/hr IVPB Q12H ALEX Last Admin: 05/04/17 22:48 Dose: 100 mls/hr Midazolam HCl 100 mg/ Sodium (Chloride) 100 mls @ 1.32 mls/hr IV .Q24H ALEX; 0.02 MG/KG/HR PRN Reason: Protocol Last Admin: 05/02/17 23:35 Dose: Not Given Propofol (Diprivan) 1,000 mg in 100 mls @ 1.985 mls/hr IV .Q24H PRN; Protocol; 5 MCG/KG/MIN PRN Reason: TITRATE PER MD ORDER Last Titration: 05/05/17 06:30 Dose: 10 mcg/kg/min, 3.971 mls/hr Fluconazole (Diflucan Iv 200 Mg/100 Ml Ns) 100 mls @ 100 mls/hr IVPB Q24H [facility] Last Admin: 05/04/17 19:04 Dose: 100 mls/hr Dexmedetomidine HCl 400 mcg/ (Sodium Chloride) 100 mls @ 3.31 mls/hr IV TITR PRN; Protocol; 0.2 MCG/KG/HR PRN Reason: Sedation Last Admin: 05/05/17 08:25 Dose: 0.5 mcg/kg/hr, 8.29 mls/hr Insulin Aspart (Novolog) 0 unit SC Q6 ALEX PRN Reason: Protocol Last Admin: 05/05/17 06:57 Dose: 2 unit Lorazepam (Ativan) 2 mg IVP Q4H PRN PRN Reason: Anxiety Last Admin: 05/02/17 02:05 Dose: 2 mg Methylprednisolone (Solu-Medrol) 40 mg IVP Q12H [facility] Last Admin: 05/05/17 10:00 Dose: Not Given Nicotine (Nicoderm Cq) 1 patch TD DAILY [facility] Last Admin: 05/05/17 10:33 Dose: 1 patch Pantoprazole Sodium (Protonix Ec Tab) 40 mg PO DAILY [facility] Last Admin: 05/05/17 10:30 Dose: 40 mg Sodium Bicarbonate (Sodium Bicarbonate Tab) 650 mg PO BID [facility] Last Admin: 05/05/17 10:31 Dose: 650 mg Vitamin A (Vitamin A & D Oint Ud Foilpak) 1 ea TOP Q4 PRN PRN Reason: dry lips Last Admin: 05/05/17 10:32 Dose: 1 ea - Labs Labs: 05/05/17 06:40 05/05/17 06:40 PT 11.1 SECONDS (9.7-12.2) 05/01/17 06:17 INR 1.0 05/01/17 06:17 APTT 23 SECONDS (21-34) 05/01/17 06:17 - Constitutional Appears: Non-toxic, In Acute Distress - Head Exam Head Exam: NORMOCEPHALIC - Eye Exam Eye Exam: Normal appearance Pupil Exam: NORMAL ACCOMODATION - ENT Exam ENT Exam: Mucous Membranes Moist - Respiratory Exam Respiratory Exam: Decreased Breath Sounds, Rales - Cardiovascular Exam Cardiovascular Exam: REGULAR RHYTHM - GI/Abdominal Exam GI & Abdominal Exam: Normal Bowel Sounds - Rectal Exam Rectal Exam: NORMAL INSPECTION Assessment and Plan - Assessment and Plan (Free Text) Assessment: RESP ROBIN ON VENT S/P SURGERY BILATERAL INFILTRATE LECOCYTOSIS Plan: CONT PER ICU ORDERS
--- NOTE | 2017-05-05 11:01 | PN ---
DATE: 05/05/2017. LOCATION: ICU 7. SUBJECTIVE: This is a 66 years old female, seen and examined in rounds, intubated, sedated, case discussed with the staff in the intensive care unit. The entire chart is reviewed including, but not limited to the most recent lab and radiology study results, current and previous medication list, current and previous medical events. The case discussed with the staff at length. The patient is still in NG tube. LABORATORY DATA: Today's lab showed leukocytosis of 23.3, hemoglobin 8.4, hematocrit 25.3 with normal platelet count, abnormal ABGs, blood glucose level 202. PHYSICAL EXAMINATION: GENERAL: A 66 years old female, intubated and sedated. VITAL SIGNS: Afebrile with pulse of 74, blood pressure of 160/56. HEENT: Showed pale dry oral mucous membrane. The patient is intubated to vent with NG is in place. LUNGS: Scattered crepitation, decreased air entry at bases. HEART: Positive S1 and S2. ABDOMEN: Soft with mild distention. No mass or organomegaly. No rebound tenderness or guarding. EXTREMITIES: With lower extremity edematous changes. No clubbing or cyanosis. NEUROLOGIC: No reported new neurological deficits, sensory or motor. The patient is sedated. IMPRESSION: 1. Malnutrition with hypoalbuminemia, hypoproteinemia. 2. Pneumonia, respiratory failure, intubated to vent. 3. Anemia most likely secondary to above. 4. Acute renal insufficiency. 5. Known history of hyperlipidemia. SUGGESTIONS: 1. Continue current management. 2. Peripheral hyperalimentation. 3. Again, the patent is a candidate for PEG insertion. 4. Further recommendation to follow. Shantel Lakhani MD
--- NOTE | 2017-05-05 11:48 | CP.PCM.PN ---
Subjective - Date & Time of Evaluation Date of Evaluation: 05/05/17 Time of Evaluation: 10:00 - Subjective Subjective: General Surgery- Dr. Hollingsworth Patient seen and examined at bedside this AM. Currently intubated on PRVC PEEP 12, FIO2 70. On 2 sedative medications. Unable to obtain ROS as pt is intubated Objective - Vital Signs/Intake and Output Vital Signs (last 24 hours): Temp Pulse Resp BP Pulse Ox 97.4 F L 96 H 16 175/65 H 100 05/05/17 08:00 05/05/17 08:36 05/05/17 08:36 05/05/17 10:31 05/05/17 08:36 Intake and Output: 05/05/17 05/05/17 06:59 18:59 Intake Total 1467.6 94.8 Output Total 1560 125 Balance -92.4 -30.2 - Medications Medications: Current Medications Albuterol/Ipratropium (Duoneb 3 Mg/0.5 Mg (3 Ml) Ud) 3 ml INH RQ6 ALEX Last Admin: 05/05/17 08:03 Dose: 3 ml Enoxaparin Sodium (Lovenox) 40 mg SC DAILY ALEX Last Admin: 05/05/17 10:35 Dose: 40 mg Furosemide (Lasix) 80 mg IVP Q12 ALEX Last Admin: 05/05/17 10:31 Dose: 80 mg Linezolid (Zyvox 600mg/300ml D5w) 600 mg in 300 mls @ 300 mls/hr IVPB Q12H ALEX Last Admin: 05/05/17 00:19 Dose: 300 mls/hr Cefepime HCl (Maxipime Iv 1 Gm Premix) 1 gm in 50 mls @ 100 mls/hr IVPB Q12H ALEX Last Admin: 05/04/17 22:48 Dose: 100 mls/hr Midazolam HCl 100 mg/ Sodium (Chloride) 100 mls @ 1.32 mls/hr IV .Q24H ALEX; 0.02 MG/KG/HR PRN Reason: Protocol Last Admin: 05/02/17 23:35 Dose: Not Given Propofol (Diprivan) 1,000 mg in 100 mls @ 1.985 mls/hr IV .Q24H PRN; Protocol; 5 MCG/KG/MIN PRN Reason: TITRATE PER MD ORDER Last Titration: 05/05/17 06:30 Dose: 10 mcg/kg/min, 3.971 mls/hr Fluconazole (Diflucan Iv 200 Mg/100 Ml Ns) 100 mls @ 100 mls/hr IVPB Q24H ALEX Last Admin: 05/04/17 19:04 Dose: 100 mls/hr Dexmedetomidine HCl 400 mcg/ (Sodium Chloride) 100 mls @ 3.31 mls/hr IV TITR PRN; Protocol; 0.2 MCG/KG/HR PRN Reason: Sedation Last Admin: 05/05/17 08:25 Dose: 0.5 mcg/kg/hr, 8.29 mls/hr Insulin Aspart (Novolog) 0 unit SC Q6 ALEX PRN Reason: Protocol Last Admin: 05/05/17 06:57 Dose: 2 unit Lorazepam (Ativan) 2 mg IVP Q4H PRN PRN Reason: Anxiety Last Admin: 05/02/17 02:05 Dose: 2 mg Methylprednisolone (Solu-Medrol) 40 mg IVP Q12H [facility] Last Admin: 05/05/17 10:00 Dose: Not Given Nicotine (Nicoderm Cq) 1 patch TD DAILY [facility] Last Admin: 05/05/17 10:33 Dose: 1 patch Pantoprazole Sodium (Protonix Ec Tab) 40 mg PO DAILY [facility] Last Admin: 05/05/17 10:30 Dose: 40 mg Sodium Bicarbonate (Sodium Bicarbonate Tab) 650 mg PO BID [facility] Last Admin: 05/05/17 10:31 Dose: 650 mg Vitamin A (Vitamin A & D Oint Ud Foilpak) 1 ea TOP Q4 PRN PRN Reason: dry lips Last Admin: 05/05/17 10:32 Dose: 1 ea - Labs Labs: 05/05/17 06:40 05/05/17 06:40 PT 11.1 SECONDS (9.7-12.2) 05/01/17 06:17 INR 1.0 05/01/17 06:17 APTT 23 SECONDS (21-34) 05/01/17 06:17 - Constitutional Appears: Non-toxic, No Acute Distress - Head Exam Head Exam: ATRAUMATIC - Eye Exam Eye Exam: EOMI - Respiratory Exam Additional comments: Intubated on PRVC awake O2 Sat: 100% - Cardiovascular Exam Cardiovascular Exam: +S1, +S2. absent: Bradycardia, Tachycardia - GI/Abdominal Exam GI & Abdominal Exam: Soft, Tenderness Additional comments: incision C/D/I abd soft non tender - Neurological Exam Neurological Exam: Alert, Awake Assessment and Plan - Assessment and Plan (Free Text) Assessment: 66F s/p left ovarain salpingo-oopherectomy, post op complicated by aspiration pneumonitis w/ subsequent ARDS Plan: Titrate FIO2 down to 40 Plan for early trach Pulm toilet keep O2 sats > 92% medical management per primary team d/w [facility]
[2017-05-05] MEDS: Cefepime IV 1 gm in Dextrose 1 GM/50 ML BAG IVPB SCH (11:59)
[2017-05-05] MEDS: HYDROmorphone 0.5 mg/0.5 ml ISec IVP PRN (12:21)
--- NOTE | 2017-05-05 14:19 | CP.CCUPN ---
CCU Subjective - Physician Review Events Since Last Encounter (Free Text): 05/05/17 14:17 alert and following commands. CCU Objective - Vital Signs / Intake & Output Vital Signs (Last 4 hours): Vital Signs BP 05/05/17 10:31 175/65 H Intake and Output (Last 8hrs): Intake & Output 05/04/17 05/05/17 05/05/17 22:59 06:59 14:59 Intake Total 645.1 1105.0 94.8 Output Total 975 1160 125 Balance -329.9 -55.0 -30.2 Weight 141 lb 15.643 oz Intake: IV 175 226.9 Intake, IV Amount 190.1 548.1 24.8 Right Distal Port Forearm 350 Right Medial Port 103.7 113.4 16.8 Internal Jugular Right Proximal Port 86.4 84.7 8 Internal Jugular Tube Feeding 280 280 70 Other 50 Output: Urine 975 1160 125 Urethral (Tay) 975 1160 125 Other: # Bowel Movements 1 - Physical Exam Head: Positive for: Atraumatic, Normocephalic Pupils: Positive for: PERRL Extroacular Muscles: Positive for: EOMI Conjunctiva: Positive for: Normal Respiratory/Chest: Positive for: Rales, Rhonchi Cardiovascular: Positive for: Regular Rate and Rhythm Abdomen: Positive for: Tenderness. Negative for: Distention Psychiatric: Positive for: Alert - Medications Active Medications: Active Medications Generic Name Dose Route Start Last Admin Trade Name Freq PRN Reason Stop Dose Admin Albuterol/Ipratropium 3 ml 04/27/17 20:00 05/05/17 13:46 Duoneb 3 Mg/0.5 Mg (3 Ml) Ud INH 3 ml RQ6 ALEX Administration Enoxaparin Sodium 40 mg 05/04/17 10:00 05/05/17 10:35 Lovenox SC 40 mg DAILY ALEX Administration Furosemide 80 mg 05/04/17 10:00 05/05/17 10:31 Lasix IVP 80 mg Q12 ALEX Administration Hydromorphone HCl 0.5 mg 05/05/17 12:12 05/05/17 12:21 Dilaudid IVP 0.5 mg Q6H PRN Administration pain Linezolid 600 mg in 300 mls @ 300 mls/hr 05/01/17 12:00 05/05/17 12:00 Zyvox 600mg/300ml D5w IVPB 300 mls/hr Q12H ALEX Administration Cefepime HCl 1 gm in 50 mls @ 100 mls/hr 05/01/17 11:30 05/05/17 11:59 Maxipime Iv 1 Gm Premix IVPB 100 mls/hr Q12H ALEX Administration Midazolam HCl 100 mg/ Sodium 100 mls @ 1.32 mls/hr 05/01/17 23:45 05/02/17 23 :35 Chloride IV Not Given .Q24H ALEX Protocol 0.02 MG/KG/HR Propofol 1,000 mg in 100 mls @ 1.985 mls/hr 05/02/17 02:14 05/05/17 06:30 Diprivan IV 10 mcg/kg/min .Q24H PRN 3.971 mls/hr TITRATE PER MD ORDER Titration Protocol 5 MCG/KG/MIN Fluconazole 100 mls @ 100 mls/hr 05/04/17 19:00 05/04/17 19:04 Diflucan Iv 200 Mg/100 Ml Ns IVPB 100 mls/hr Q24H ALEX Administration Dexmedetomidine HCl 400 mcg/ 100 mls @ 3.31 mls/hr 05/05/17 06:30 05/05/17 08 :25 Sodium Chloride IV 0.5 mcg/kg/hr TITR PRN 8.29 mls/hr Sedation Administration Protocol 0.2 MCG/KG/HR Insulin Aspart 0 unit 05/03/17 12:00 05/05/17 12:20 Novolog SC 1 unit Q6 ALEX Administration Protocol Lorazepam 2 mg 05/01/17 21:54 05/02/17 02:05 Ativan IVP 2 mg Q4H PRN Administration Anxiety Methylprednisolone 40 mg 05/05/17 10:15 05/05/17 10:00 Solu-Medrol IVP Not Given Q12H ALEX Nicotine 1 patch 05/05/17 10:15 05/05/17 10:33 Nicoderm Cq TD 1 patch DAILY ALEX Administration Pantoprazole Sodium 40 mg 05/05/17 10:00 05/05/17 10:30 Protonix Ec Tab PO 40 mg DAILY ALEX Administration Sodium Bicarbonate 650 mg 05/04/17 10:30 05/05/17 10:31 Sodium Bicarbonate Tab PO 650 mg BID ALEX Administration Vitamin A 1 ea 05/01/17 12:38 05/05/17 10:32 Vitamin A & D Oint Ud Foilpak TOP 1 ea Q4 PRN Administration dry lips - Patient Studies Lab Studies: Lab Studies 05/05/17 05/05/17 05/05/17 Range/Units 12:13 06:40 06:40 WBC (4.8-10.8) K/uL RBC (3.80-5.20) Mil/uL Hgb (11.0-16.0) g/dL Hct (34.0-47.0) % MCV (81.0-99.0) fL MCH (27.0-31.0) pg MCHC (33.0-37.0) g/dL RDW (11.5-14.5) % Plt Count (130-400) K/uL MPV (7.2-11.7) fL Neut % (Auto) (50.0-75.0) % Lymph % (Auto) (20.0-40.0) % [place] % (Auto) (0.0-10.0) % Eos % (Auto) (0.0-4.0) % Baso % (Auto) (0.0-2.0) % Neut # (Auto) (1.8-7.0) K/uL Lymph # (Auto) (1.0-4.3) K/uL [place] # (Auto) (0.0-0.8) K/uL Eos # (Auto) (0.0-0.7) K/uL Baso # (Auto) (0.0-0.2) K/uL Neutrophils % (Manual) (50-75) % Band Neutrophils % (0-2) % Lymphocytes % (Manual) (20-40) % Monocytes % (Manual) (0-10) % Platelet Estimate (NORMAL) Polychromasia Hypochromasia (manual) Basophilic Stippling Anisocytosis (manual) Target Cells Puncture Site pCO2 (35-45) mm/Hg pO2 (80-100) mm/Hg HCO3 (21-28) mmol/L ABG pH (7.35-7.45) ABG Total CO2 (22-28) mmol/L ABG O2 Saturation (95-98) % ABG Base Excess (-2.0-3.0) mmol/L ABG Hemoglobin (11.7-17.4) g/dL ABG Carboxyhemoglobin (0.5-1.5) % POC ABG HHb (Measured) (0.0-5.0) % ABG Methemoglobin (0.0-3.0) % Pierre Test A-a O2 Difference mm/Hg Respiratory Index Hgb O2 Saturation (95.0-98.0) % Vent Mode Mechanical Rate FiO2 % Tidal Volume PEEP Sodium 141 (132-148) mmol/L Potassium 3.8 (3.6-5.2) mmol/L Chloride 99 (98-107) mmol/L Carbon Dioxide 33 H (22-30) mmol/L Anion Gap 13 (10-20) BUN 64 H (7-17) mg/dL Creatinine 1.0 (0.7-1.2) mg/dL Est GFR ( Amer) > 60 Est GFR (Non-Af Amer) 55 POC Glucose (mg/dL) 174 H (65-110) mg/dL Random Glucose 195 H (65-105) mg/dL Calcium 7.8 L (8.6-10.4) mg/dl Phosphorus 3.8 (2.5-4.5) mg/dL Magnesium 2.2 (1.6-2.3) mg/dL Total Bilirubin 0.4 (0.2-1.3) mg/dL AST 34 (14-36) U/L ALT 60 H (9-52) U/L Alkaline Phosphatase 134 H (38-126) U/L Total Protein 5.4 L (6.3-8.3) g/dL Albumin 2.7 L (3.5-5.0) g/dL Globulin 2.8 (2.2-3.9) gm/dL Albumin/Globulin Ratio 1.0 (1.0-2.1) HIV 1&2 Antibody Screen Negative (NEGATIVE) 05/05/17 05/05/17 05/05/17 Range/Units 06:40 05:24 05:17 WBC 23.3 H (4.8-10.8) K/uL RBC 2.97 L (3.80-5.20) Mil/uL Hgb 8.4 L (11.0-16.0) g/dL Hct 25.3 L (34.0-47.0) % MCV 85.3 (81.0-99.0) fL MCH 28.4 (27.0-31.0) pg MCHC 33.3 (33.0-37.0) g/dL RDW 15.1 H (11.5-14.5) % Plt Count 287 (130-400) K/uL MPV 8.7 (7.2-11.7) fL Neut % (Auto) 94.6 H (50.0-75.0) % Lymph % (Auto) 2.6 L (20.0-40.0) % [place] % (Auto) 2.4 (0.0-10.0) % Eos % (Auto) 0.0 (0.0-4.0) % Baso % (Auto) 0.4 (0.0-2.0) % Neut # (Auto) 22.1 H (1.8-7.0) K/uL Lymph # (Auto) 0.6 L (1.0-4.3) K/uL [place] # (Auto) 0.6 (0.0-0.8) K/uL Eos # (Auto) 0.0 (0.0-0.7) K/uL Baso # (Auto) 0.1 (0.0-0.2) K/uL Neutrophils % (Manual) 92 H (50-75) % Band Neutrophils % 2 (0-2) % Lymphocytes % (Manual) 3 L (20-40) % Monocytes % (Manual) 3 (0-10) % Platelet Estimate Normal (NORMAL) Polychromasia Slight Hypochromasia (manual) Slight Basophilic Stippling Slight Anisocytosis (manual) Slight Target Cells Slight Puncture Site Lr pCO2 53 H (35-45) mm/Hg pO2 182 H (80-100) mm/Hg HCO3 30.5 H (21-28) mmol/L ABG pH 7.40 (7.35-7.45) ABG Total CO2 34.4 H (22-28) mmol/L ABG O2 Saturation 100.0 H (95-98) % ABG Base Excess 7.1 H (-2.0-3.0) mmol/L ABG Hemoglobin 8.4 L (11.7-17.4) g/dL ABG Carboxyhemoglobin 1.8 H (0.5-1.5) % POC ABG HHb (Measured) 0.0 (0.0-5.0) % ABG Methemoglobin 0.8 (0.0-3.0) % Pierre Test Pos A-a O2 Difference 251.0 mm/Hg Respiratory Index 1.4 Hgb O2 Saturation 97.4 (95.0-98.0) % Vent Mode Prvc Mechanical Rate 18 FiO2 70.0 % Tidal Volume 350 PEEP 14 Sodium (132-148) mmol/L Potassium (3.6-5.2) mmol/L Chloride (98-107) mmol/L Carbon Dioxide (22-30) mmol/L Anion Gap (10-20) BUN (7-17) mg/dL Creatinine (0.7-1.2) mg/dL Est GFR ( Amer) Est GFR (Non-Af Amer) POC Glucose (mg/dL) 202 H (65-110) mg/dL Random Glucose (65-105) mg/dL Calcium (8.6-10.4) mg/dl Phosphorus (2.5-4.5) mg/dL Magnesium (1.6-2.3) mg/dL Total Bilirubin (0.2-1.3) mg/dL AST (14-36) U/L ALT (9-52) U/L Alkaline Phosphatase (38-126) U/L Total Protein (6.3-8.3) g/dL Albumin (3.5-5.0) g/dL Globulin (2.2-3.9) gm/dL Albumin/Globulin Ratio (1.0-2.1) HIV 1&2 Antibody Screen (NEGATIVE) 05/05/17 05/04/17 Range/Units 00:09 18:12 WBC (4.8-10.8) K/uL RBC (3.80-5.20) Mil/uL Hgb (11.0-16.0) g/dL Hct (34.0-47.0) % MCV (81.0-99.0) fL MCH (27.0-31.0) pg MCHC (33.0-37.0) g/dL RDW (11.5-14.5) % Plt Count (130-400) K/uL MPV (7.2-11.7) fL Neut % (Auto) (50.0-75.0) % Lymph % (Auto) (20.0-40.0) % [place] % (Auto) (0.0-10.0) % Eos % (Auto) (0.0-4.0) % Baso % (Auto) (0.0-2.0) % Neut # (Auto) (1.8-7.0) K/uL Lymph # (Auto) (1.0-4.3) K/uL [place] # (Auto) (0.0-0.8) K/uL Eos # (Auto) (0.0-0.7) K/uL Baso # (Auto) (0.0-0.2) K/uL Neutrophils % (Manual) (50-75) % Band Neutrophils % (0-2) % Lymphocytes % (Manual) (20-40) % Monocytes % (Manual) (0-10) % Platelet Estimate (NORMAL) Polychromasia Hypochromasia (manual) Basophilic Stippling Anisocytosis (manual) Target Cells Puncture Site pCO2 (35-45) mm/Hg pO2 (80-100) mm/Hg HCO3 (21-28) mmol/L ABG pH (7.35-7.45) ABG Total CO2 (22-28) mmol/L ABG O2 Saturation (95-98) % ABG Base Excess (-2.0-3.0) mmol/L ABG Hemoglobin (11.7-17.4) g/dL ABG Carboxyhemoglobin (0.5-1.5) % POC ABG HHb (Measured) (0.0-5.0) % ABG Methemoglobin (0.0-3.0) % Pierre Test A-a O2 Difference mm/Hg Respiratory Index Hgb O2 Saturation (95.0-98.0) % Vent Mode Mechanical Rate FiO2 % Tidal Volume PEEP Sodium (132-148) mmol/L Potassium (3.6-5.2) mmol/L Chloride (98-107) mmol/L Carbon Dioxide (22-30) mmol/L Anion Gap (10-20) BUN (7-17) mg/dL Creatinine (0.7-1.2) mg/dL Est GFR ( Amer) Est GFR (Non-Af Amer) POC Glucose (mg/dL) 141 H 104 (65-110) mg/dL Random Glucose (65-105) mg/dL Calcium (8.6-10.4) mg/dl Phosphorus (2.5-4.5) mg/dL Magnesium (1.6-2.3) mg/dL Total Bilirubin (0.2-1.3) mg/dL AST (14-36) U/L ALT (9-52) U/L Alkaline Phosphatase (38-126) U/L Total Protein (6.3-8.3) g/dL Albumin (3.5-5.0) g/dL Globulin (2.2-3.9) gm/dL Albumin/Globulin Ratio (1.0-2.1) HIV 1&2 Antibody Screen (NEGATIVE) Laboratory Results - last 24 hr 05/04/17 05/05/17 05/05/17 18:12 00:09 05:17 WBC RBC Hgb Hct MCV MCH MCHC RDW Plt Count MPV Neut % (Auto) Lymph % (Auto) [place] % (Auto) Eos % (Auto) Baso % (Auto) Neut # (Auto) Lymph # (Auto) [place] # (Auto) Eos # (Auto) Baso # (Auto) Neutrophils % (Manual) Band Neutrophils % Lymphocytes % (Manual) Monocytes % (Manual) Platelet Estimate Polychromasia Hypochromasia (manual) Basophilic Stippling Anisocytosis (manual) Target Cells Puncture Site pCO2 pO2 HCO3 ABG pH ABG Total CO2 ABG O2 Saturation ABG Base Excess ABG Hemoglobin ABG Carboxyhemoglobin POC ABG HHb (Measured) ABG Methemoglobin Pierre Test A-a O2 Difference Respiratory Index Hgb O2 Saturation Vent Mode Mechanical Rate FiO2 Tidal Volume PEEP Sodium Potassium Chloride Carbon Dioxide Anion Gap BUN Creatinine Est GFR ( Amer) Est GFR (Non-Af Amer) POC Glucose (mg/dL) 104 141 H 202 H Random Glucose Calcium Phosphorus Magnesium Total Bilirubin AST ALT Alkaline Phosphatase Total Protein Albumin Globulin Albumin/Globulin Ratio HIV 1&2 Antibody Screen 05/05/17 05/05/17 05/05/17 05:24 06:40 06:40 WBC 23.3 H RBC 2.97 L Hgb 8.4 L Hct 25.3 L MCV 85.3 MCH 28.4 MCHC 33.3 RDW 15.1 H Plt Count 287 MPV 8.7 Neut % (Auto) 94.6 H Lymph % (Auto) 2.6 L [place] % (Auto) 2.4 Eos % (Auto) 0.0 Baso % (Auto) 0.4 Neut # (Auto) 22.1 H Lymph # (Auto) 0.6 L [place] # (Auto) 0.6 Eos # (Auto) 0.0 Baso # (Auto) 0.1 Neutrophils % (Manual) 92 H Band Neutrophils % 2 Lymphocytes % (Manual) 3 L Monocytes % (Manual) 3 Platelet Estimate Normal Polychromasia Slight Hypochromasia (manual) Slight Basophilic Stippling Slight Anisocytosis (manual) Slight Target Cells Slight Puncture Site Lr pCO2 53 H pO2 182 H HCO3 30.5 H ABG pH 7.40 ABG Total CO2 34.4 H ABG O2 Saturation 100.0 H ABG Base Excess 7.1 H ABG Hemoglobin 8.4 L ABG Carboxyhemoglobin 1.8 H POC ABG HHb (Measured) 0.0 ABG Methemoglobin 0.8 Pierre Test Pos A-a O2 Difference 251.0 Respiratory Index 1.4 Hgb O2 Saturation 97.4 Vent Mode Prvc Mechanical Rate 18 FiO2 70.0 Tidal Volume 350 PEEP 14 Sodium 141 Potassium 3.8 Chloride 99 Carbon Dioxide 33 H Anion Gap 13 BUN 64 H Creatinine 1.0 Est GFR ( Amer) > 60 Est GFR (Non-Af Amer) 55 POC Glucose (mg/dL) Random Glucose 195 H Calcium 7.8 L Phosphorus 3.8 Magnesium 2.2 Total Bilirubin 0.4 AST 34 ALT 60 H Alkaline Phosphatase 134 H Total Protein 5.4 L Albumin 2.7 L Globulin 2.8 Albumin/Globulin Ratio 1.0 HIV 1&2 Antibody Screen 05/05/17 05/05/17 06:40 12:13 WBC RBC Hgb Hct MCV MCH MCHC RDW Plt Count MPV Neut % (Auto) Lymph % (Auto) [place] % (Auto) Eos % (Auto) Baso % (Auto) Neut # (Auto) Lymph # (Auto) [place] # (Auto) Eos # (Auto) Baso # (Auto) Neutrophils % (Manual) Band Neutrophils % Lymphocytes % (Manual) Monocytes % (Manual) Platelet Estimate Polychromasia Hypochromasia (manual) Basophilic Stippling Anisocytosis (manual) Target Cells Puncture Site pCO2 pO2 HCO3 ABG pH ABG Total CO2 ABG O2 Saturation ABG Base Excess ABG Hemoglobin ABG Carboxyhemoglobin POC ABG HHb (Measured) ABG Methemoglobin Pierre Test A-a O2 Difference Respiratory Index Hgb O2 Saturation Vent Mode Mechanical Rate FiO2 Tidal Volume PEEP Sodium Potassium Chloride Carbon Dioxide Anion Gap BUN Creatinine Est GFR ( Amer) Est GFR (Non-Af Amer) POC Glucose (mg/dL) 174 H Random Glucose Calcium Phosphorus Magnesium Total Bilirubin AST ALT Alkaline Phosphatase Total Protein Albumin Globulin Albumin/Globulin Ratio HIV 1&2 Antibody Screen Negative Fingerstick Blood Sugar Results: 174 Review of Systems - Review of Systems Systems not reviewed;Unavailable: Intubated Critical Care Progress Note - Ventilator Checklist Head of Bed 30 Degrees: Yes Daily Sedation Vacation: Yes Daily Assessment of Readiness to Wean: Yes Daily Spontaneous Breathing Trial: No (ards) PUD Prophalyxis: Yes DVT Prophylaxis: Yes Oral Care with Chlorhexidine Gluconate {CHG}: Yes Assessment/Plan (1) Acute respiratory distress syndrome (ARDS) Assessment and plan: 66yo F. PMHx diastolic HF, HTN, COPD, CKD, left nephrectomy, hepatitis C. s/p left ovarian salpingo-oopherectomy, post-op c/b aspiration pneumonitis with subsequent ARDS. Neuro: off of paralytics. mild sedation with propofol gtt and precedex gtt. Pulm: aspiration pneumonia/pneumonitis with moderate ARDS. lung protective strategies. patient will need trach for prolonged intubation. CV: hemodynamically stable. Hem: f/u ovarian pathology. Renal: nephrotic syndrome, continue oral sodium bicarbonate. increased diuresis lasix 80mg IV q12h. Endo: GI: NPO, [email or web address] ID: [id number], continue Zyvox, Cefepime, Azithromycin. DVT proph - lovenox GI proph - protonix po tay for strict I/O's during acute illness Code status - full code Current Visit: Yes Status: Acute
[2017-05-05] MEDS: Fluconazole IV 200mg/100 ml NS 100 ML IVPB SCH (18:28)
[2017-05-06] MEDS: Cefepime IV 1 gm in Dextrose 1 GM/50 ML BAG IVPB SCH ×2 (00:19→11:22)
[2017-05-06] MEDS: (Novolog) Insulin Aspart, Recombinant 100 u/ml 10 ml vial SC SCH ×4 (00:21→17:58)
[2017-05-06] MEDS: Vitamins A & D Oint UD Foilpak TOP PRN ×2 (00:22→21:53)
[2017-05-06] MEDS: Linezolid 600 mg in D5W 300 ml 600 MG/300 ML BAG IVPB SCH ×2 (00:26→12:18)
[2017-05-06] MEDS: Albuterol-Ipratrop 3 mg / 0.5 (3 ml) UD INH SCH ×4 (01:06→19:49)
[2017-05-06 04:39] LABS: ABG ALLEN TEST POS; ARTERIAL BLOOD GAS HCO3 36.6 mmol/L (21-28); ARTERIAL BLOOD GAS HEMOGLOBIN 8.9 g/dL (11.7-17.4); ARTERIAL BLOOD GAS O2 SAT 99.5 % (95-98); ARTERIAL BLOOD GAS PCO2 54 mm/Hg (35-45); ARTERIAL BLOOD GAS PH 7.48 (7.35-7.45); ARTERIAL BLOOD GAS PO2 119 mm/Hg (80-100); ARTERIAL BLOOD GAS TCO2 41.9 mmol/L (22-28)
[2017-05-06 06:39] LABS: HEMOGLOBIN 8.5 g/dL (11.0-16.0); LYMPH # 0.7 K/uL (1.0-4.3); LYMPH % 3.3 % (20.0-40.0); MEAN CELL VOLUME 83.5 fL (81.0-99.0); MEAN CORPUSCULAR HGB CONC 33.5 g/dL (33.0-37.0); MEAN PLATELET VOLUME 8.2 fL (7.2-11.7); MONO # 0.7 K/uL (0.0-0.8); MONO % 3.2 % (0.0-10.0); NEUT # 19.4 K/uL (1.8-7.0); NEUT % 93.5 % (50.0-75.0); NRBC % 0.1 % (0.0-2.0); PLATELET COUNT 312 K/uL (130-400); RBC 3.03 Mil/uL (3.80-5.20); RED CELL DISTRIBUTION WIDTH 14.5 % (11.5-14.5); WHITE BLOOD COUNT 20.7 K/uL (4.8-10.8)
[2017-05-06 07:04] LABS: ALBUMIN 2.7 g/dL (3.5-5.0); ALT/SGPT 59 U/L (9-52); AST/SGOT 29 U/L (14-36); BLOOD UREA NITROGEN 56 mg/dL (7-17); CALCIUM 7.7 mg/dl (8.6-10.4); GFR AFRICAN-AMERICAN > 60; GFR NON-AFRICAN AMERICAN > 60
--- NOTE | 2017-05-06 08:24 | RAD ---
Chest x-ray single frontal view History: Intubated. Comparison: 05/05/2017 Findings: Lines and tubes in stable position. Dense confluent opacifications seen throughout both lungs. Small bilateral pleural effusions. Cardiomegaly. Degenerative changes in the spine. Surgical clips in the upper abdomen. Impression: No significant interval change.
[2017-05-06] MEDS: Propofol 10 mg/ml 1,000 MG/100 ML VIAL IV PRN (09:01)
[2017-05-06 09:24] LABS: BANDS 2 % (0-2); LYMPHOCYTE 4 % (20-40); MONOCYTE 4 % (0-10); NEUTROPHIL 90 % (50-75); PLATELET ESTIMATE NORMAL (NORMAL); TOTAL CELLS COUNTED 100
[2017-05-06 09:26] LABS: PROTHROMBIN TIME 11.8 SECONDS (9.7-12.2)
[2017-05-06 09:29] LABS: ANISOCYTOSIS SLIGHT; HYPOCHROMIC SLIGHT; POLYCHROMIC SLIGHT; TARGET CELLS SLIGHT
[2017-05-06 09:32] LABS: LARGE PLATELETS PRESENT
[2017-05-06] MEDS: MethylPREDNISolone 40 mg Vial IVP SCH (10:00)
[2017-05-06] MEDS: Enoxaparin 40 mg Syringe SC SCH (10:14)
[2017-05-06] MEDS: Pantoprazole 40 mg Susp UD GT SCH (10:15)
--- NOTE | 2017-05-06 10:22 | CP.CCUPN ---
CCU Subjective - Physician Review Events Since Last Encounter (Free Text): 05/06/17 10:19 no significant events noted Patient is awake and responding. No fever today. Subjective (Free Text): 05/06/17 10:19 patient is awake responding. Moving all 4 extremities. edema is less than before No secretions from the endotracheal tub noted. Tolerating the feeding Critical Care Time Spent (in minutes): 45 CCU Objective - Vital Signs / Intake & Output Vital Signs (Last 4 hours): Vital Signs Pulse Resp BP Pulse Ox 05/06/17 10:00 170/66 H 05/06/17 07:00 99 H 22 99 05/06/17 06:44 93 H 22 179/57 H 99 Intake and Output (Last 8hrs): Intake & Output 05/05/17 05/06/17 05/06/17 22:59 06:59 14:59 Intake Total 825.2 729.2 147.4 Output Total 1100 1430 50 Balance -274.8 -700.8 97.4 Weight 138 lb 3.677 oz Intake: IV 146 100 Intake, IV Amount 199.2 449.2 12.4 Right Distal Port Forearm 350 Right Medial Port 67.2 67.2 8.4 Internal Jugular Right Proximal Port 32 32 4 Internal Jugular Right Proximal TLC 100 Tube Feeding 280 280 35 Other 200 Output: Urine 1100 1430 50 Urethral ([place]) 1100 1430 50 Other: # Bowel Movements 0 0 0 - Physical Exam Narrative Physical Exam (Free Text): 05/06/17 10:20 clinically stable. chest bilateral good air entry Regular heart sounds Abdomen soft bilateral pedal edema less. Head: Positive for: Atraumatic, Normocephalic Pupils: Positive for: PERRL Extroacular Muscles: Positive for: EOMI Conjunctiva: Positive for: Normal Respiratory/Chest: Positive for: Rales, Rhonchi Cardiovascular: Positive for: Regular Rate and Rhythm Abdomen: Positive for: Tenderness. Negative for: Distention Psychiatric: Positive for: Alert - Medications Active Medications: Active Medications Generic Name Dose Route Start Last Admin Trade Name Freq PRN Reason Stop Dose Admin Albuterol/Ipratropium 3 ml 04/27/17 20:00 05/06/17 07:40 Duoneb 3 Mg/0.5 Mg (3 Ml) Ud INH 3 ml RQ6 ALEX Administration Amlodipine Besylate 10 mg 05/05/17 16:15 05/06/17 10:00 Norvasc PO 10 mg DAILY ALEX Administration Enoxaparin Sodium 40 mg 05/04/17 10:00 05/06/17 10:14 Lovenox SC 40 mg DAILY ALEX Administration Furosemide 80 mg 05/04/17 10:00 05/06/17 10:00 Lasix IVP 80 mg Q12 ALEX Administration Hydromorphone HCl 0.5 mg 05/05/17 12:12 05/05/17 12:21 Dilaudid IVP 0.5 mg Q6H PRN Administration pain Linezolid 600 mg in 300 mls @ 300 mls/hr 05/01/17 12:00 05/06/17 00:26 Zyvox 600mg/300ml D5w IVPB 300 mls/hr Q12H ALEX Administration Cefepime HCl 1 gm in 50 mls @ 100 mls/hr 05/01/17 11:30 05/06/17 00:19 Maxipime Iv 1 Gm Premix IVPB 100 mls/hr Q12H ALEX Administration Midazolam HCl 100 mg/ Sodium 100 mls @ 1.32 mls/hr 05/01/17 23:45 05/02/17 23 :35 Chloride IV Not Given .Q24H ALEX Protocol 0.02 MG/KG/HR Propofol 1,000 mg in 100 mls @ 1.985 mls/hr 05/02/17 02:14 05/06/17 09:01 Diprivan IV 10 mcg/kg/min .Q24H PRN 3.971 mls/hr TITRATE PER MD ORDER Administration Protocol 5 MCG/KG/MIN Fluconazole 100 mls @ 100 mls/hr 05/04/17 19:00 05/05/17 18:28 Diflucan Iv 200 Mg/100 Ml Ns IVPB 100 mls/hr Q24H ALEX Administration Insulin Aspart 0 unit 05/03/17 12:00 05/06/17 06:34 Novolog SC 2 unit Q6 ALEX Administration Protocol Lorazepam 2 mg 05/01/17 21:54 05/05/17 20:59 Ativan IVP 2 mg Q4H PRN Administration Anxiety Methylprednisolone 40 mg 05/06/17 10:00 05/06/17 10:00 Solu-Medrol IVP 40 mg DAILY ALEX Administration Metoprolol Tartrate 25 mg 05/06/17 10:00 05/06/17 10:00 Lopressor PO 25 mg BID ALEX Administration Nicotine 1 patch 05/05/17 10:15 05/06/17 10:01 Nicoderm Cq TD 1 patch DAILY ALEX Administration Pantoprazole Sodium 40 mg 05/06/17 10:00 05/06/17 10:15 Protonix Susp GT 40 mg DAILY ALEX Administration Sodium Bicarbonate 650 mg 05/04/17 10:30 05/06/17 10:01 Sodium Bicarbonate Tab PO 650 mg BID ALEX Administration Vitamin A 1 ea 05/01/17 12:38 05/06/17 00:22 Vitamin A & D Oint Ud Foilpak TOP 1 ea Q4 PRN Administration dry lips - Patient Studies Lab Studies: Lab Studies 05/06/17 05/06/17 05/06/17 Range/Units 09:09 06:33 06:33 WBC 20.7 H (4.8-10.8) K/uL RBC 3.03 L (3.80-5.20) Mil/uL Hgb 8.5 L (11.0-16.0) g/dL Hct 25.3 L (34.0-47.0) % MCV 83.5 (81.0-99.0) fL MCH 28.0 (27.0-31.0) pg MCHC 33.5 (33.0-37.0) g/dL RDW 14.5 (11.5-14.5) % Plt Count 312 (130-400) K/uL MPV 8.2 (7.2-11.7) fL Neut % (Auto) 93.5 H (50.0-75.0) % Lymph % (Auto) 3.3 L (20.0-40.0) % Haakon % (Auto) 3.2 (0.0-10.0) % Eos % (Auto) 0.0 (0.0-4.0) % Baso % (Auto) 0.0 (0.0-2.0) % Neut # (Auto) 19.4 H (1.8-7.0) K/uL Lymph # (Auto) 0.7 L (1.0-4.3) K/uL Haakon # (Auto) 0.7 (0.0-0.8) K/uL Eos # (Auto) 0.0 (0.0-0.7) K/uL Baso # (Auto) 0.0 (0.0-0.2) K/uL Neutrophils % (Manual) 90 H (50-75) % Band Neutrophils % 2 (0-2) % Lymphocytes % (Manual) 4 L (20-40) % Monocytes % (Manual) 4 (0-10) % Platelet Estimate Normal (NORMAL) Large Platelets Present Polychromasia Slight Hypochromasia (manual) Slight Basophilic Stippling Slight Anisocytosis (manual) Slight Target Cells Slight PT 11.8 (9.7-12.2) SECONDS INR 1.0 APTT 24 (21-34) SECONDS Puncture Site pCO2 (35-45) mm/Hg pO2 (80-100) mm/Hg HCO3 (21-28) mmol/L ABG pH (7.35-7.45) ABG Total CO2 (22-28) mmol/L ABG O2 Saturation (95-98) % ABG Base Excess (-2.0-3.0) mmol/L ABG Hemoglobin (11.7-17.4) g/dL ABG Carboxyhemoglobin (0.5-1.5) % POC ABG HHb (Measured) (0.0-5.0) % ABG Methemoglobin (0.0-3.0) % Pierre Test A-a O2 Difference mm/Hg Respiratory Index Hgb O2 Saturation (95.0-98.0) % Vent Mode Mechanical Rate FiO2 % Tidal Volume PEEP Sodium 144 (132-148) mmol/L Potassium 3.8 (3.6-5.2) mmol/L Chloride 98 (98-107) mmol/L Carbon Dioxide 37 H (22-30) mmol/L Anion Gap 13 (10-20) BUN 56 H (7-17) mg/dL Creatinine 0.8 (0.7-1.2) mg/dL Est GFR ( Amer) > 60 Est GFR (Non-Af Amer) > 60 POC Glucose (mg/dL) (65-110) mg/dL Random Glucose 164 H (65-105) mg/dL Calcium 7.7 L (8.6-10.4) mg/dl Phosphorus 2.4 L (2.5-4.5) mg/dL Magnesium 2.1 (1.6-2.3) mg/dL Total Bilirubin 0.7 (0.2-1.3) mg/dL AST 29 (14-36) U/L ALT 59 H (9-52) U/L Alkaline Phosphatase 138 H (38-126) U/L Total Protein 5.4 L (6.3-8.3) g/dL Albumin 2.7 L (3.5-5.0) g/dL Globulin 2.7 (2.2-3.9) gm/dL Albumin/Globulin Ratio 1.0 (1.0-2.1) HIV 1&2 Antibody Screen (NEGATIVE) 05/06/17 05/06/17 05/06/17 Range/Units 06:23 04:30 00:09 WBC (4.8-10.8) K/uL RBC (3.80-5.20) Mil/uL Hgb (11.0-16.0) g/dL Hct (34.0-47.0) % MCV (81.0-99.0) fL MCH (27.0-31.0) pg MCHC (33.0-37.0) g/dL RDW (11.5-14.5) % Plt Count (130-400) K/uL MPV (7.2-11.7) fL Neut % (Auto) (50.0-75.0) % Lymph % (Auto) (20.0-40.0) % Haakon % (Auto) (0.0-10.0) % Eos % (Auto) (0.0-4.0) % Baso % (Auto) (0.0-2.0) % Neut # (Auto) (1.8-7.0) K/uL Lymph # (Auto) (1.0-4.3) K/uL Haakon # (Auto) (0.0-0.8) K/uL Eos # (Auto) (0.0-0.7) K/uL Baso # (Auto) (0.0-0.2) K/uL Neutrophils % (Manual) (50-75) % Band Neutrophils % (0-2) % Lymphocytes % (Manual) (20-40) % Monocytes % (Manual) (0-10) % Platelet Estimate (NORMAL) Large Platelets Polychromasia Hypochromasia (manual) Basophilic Stippling Anisocytosis (manual) Target Cells PT (9.7-12.2) SECONDS INR APTT (21-34) SECONDS Puncture Site Rr pCO2 54 H (35-45) mm/Hg pO2 119 H (80-100) mm/Hg HCO3 36.6 H (21-28) mmol/L ABG pH 7.48 H (7.35-7.45) ABG Total CO2 41.9 H (22-28) mmol/L ABG O2 Saturation 99.5 H (95-98) % ABG Base Excess 14.9 H (-2.0-3.0) mmol/L ABG Hemoglobin 8.9 L (11.7-17.4) g/dL ABG Carboxyhemoglobin 2.1 H (0.5-1.5) % POC ABG HHb (Measured) 0.5 (0.0-5.0) % ABG Methemoglobin 1.3 (0.0-3.0) % Pierre Test Pos A-a O2 Difference 170.0 mm/Hg Respiratory Index 1.4 Hgb O2 Saturation 96.2 (95.0-98.0) % Vent Mode Prvc Mechanical Rate 18 FiO2 50.0 % Tidal Volume 350 PEEP 10 Sodium (132-148) mmol/L Potassium (3.6-5.2) mmol/L Chloride (98-107) mmol/L Carbon Dioxide (22-30) mmol/L Anion Gap (10-20) BUN (7-17) mg/dL Creatinine (0.7-1.2) mg/dL Est GFR ( Amer) Est GFR (Non-Af Amer) POC Glucose (mg/dL) 203 H 148 H (65-110) mg/dL Random Glucose (65-105) mg/dL Calcium (8.6-10.4) mg/dl Phosphorus (2.5-4.5) mg/dL Magnesium (1.6-2.3) mg/dL Total Bilirubin (0.2-1.3) mg/dL AST (14-36) U/L ALT (9-52) U/L Alkaline Phosphatase (38-126) U/L Total Protein (6.3-8.3) g/dL Albumin (3.5-5.0) g/dL Globulin (2.2-3.9) gm/dL Albumin/Globulin Ratio (1.0-2.1) HIV 1&2 Antibody Screen (NEGATIVE) 05/05/17 05/05/17 05/05/17 Range/Units 17:41 12:13 06:40 WBC (4.8-10.8) K/uL RBC (3.80-5.20) Mil/uL Hgb (11.0-16.0) g/dL Hct (34.0-47.0) % MCV (81.0-99.0) fL MCH (27.0-31.0) pg MCHC (33.0-37.0) g/dL RDW (11.5-14.5) % Plt Count (130-400) K/uL MPV (7.2-11.7) fL Neut % (Auto) (50.0-75.0) % Lymph % (Auto) (20.0-40.0) % Haakon % (Auto) (0.0-10.0) % Eos % (Auto) (0.0-4.0) % Baso % (Auto) (0.0-2.0) % Neut # (Auto) (1.8-7.0) K/uL Lymph # (Auto) (1.0-4.3) K/uL Haakon # (Auto) (0.0-0.8) K/uL Eos # (Auto) (0.0-0.7) K/uL Baso # (Auto) (0.0-0.2) K/uL Neutrophils % (Manual) (50-75) % Band Neutrophils % (0-2) % Lymphocytes % (Manual) (20-40) % Monocytes % (Manual) (0-10) % Platelet Estimate (NORMAL) Large Platelets Polychromasia Hypochromasia (manual) Basophilic Stippling Anisocytosis (manual) Target Cells PT (9.7-12.2) SECONDS INR APTT (21-34) SECONDS Puncture Site pCO2 (35-45) mm/Hg pO2 (80-100) mm/Hg HCO3 (21-28) mmol/L ABG pH (7.35-7.45) ABG Total CO2 (22-28) mmol/L ABG O2 Saturation (95-98) % ABG Base Excess (-2.0-3.0) mmol/L ABG Hemoglobin (11.7-17.4) g/dL ABG Carboxyhemoglobin (0.5-1.5) % POC ABG HHb (Measured) (0.0-5.0) % ABG Methemoglobin (0.0-3.0) % Pierre Test A-a O2 Difference mm/Hg Respiratory Index Hgb O2 Saturation (95.0-98.0) % Vent Mode Mechanical Rate FiO2 % Tidal Volume PEEP Sodium (132-148) mmol/L Potassium (3.6-5.2) mmol/L Chloride (98-107) mmol/L Carbon Dioxide (22-30) mmol/L Anion Gap (10-20) BUN (7-17) mg/dL Creatinine (0.7-1.2) mg/dL Est GFR ( Amer) Est GFR (Non-Af Amer) POC Glucose (mg/dL) 183 H 174 H (65-110) mg/dL Random Glucose (65-105) mg/dL Calcium (8.6-10.4) mg/dl Phosphorus (2.5-4.5) mg/dL Magnesium (1.6-2.3) mg/dL Total Bilirubin (0.2-1.3) mg/dL AST (14-36) U/L ALT (9-52) U/L Alkaline Phosphatase (38-126) U/L Total Protein (6.3-8.3) g/dL Albumin (3.5-5.0) g/dL Globulin (2.2-3.9) gm/dL Albumin/Globulin Ratio (1.0-2.1) HIV 1&2 Antibody Screen Negative (NEGATIVE) Laboratory Results - last 24 hr 05/05/17 05/05/17 05/05/17 06:40 12:13 17:41 WBC RBC Hgb Hct MCV MCH MCHC RDW Plt Count MPV Neut % (Auto) Lymph % (Auto) Haakon % (Auto) Eos % (Auto) Baso % (Auto) Neut # (Auto) Lymph # (Auto) Haakon # (Auto) Eos # (Auto) Baso # (Auto) Neutrophils % (Manual) Band Neutrophils % Lymphocytes % (Manual) Monocytes % (Manual) Platelet Estimate Large Platelets Polychromasia Hypochromasia (manual) Basophilic Stippling Anisocytosis (manual) Target Cells PT INR APTT Puncture Site pCO2 pO2 HCO3 ABG pH ABG Total CO2 ABG O2 Saturation ABG Base Excess ABG Hemoglobin ABG Carboxyhemoglobin POC ABG HHb (Measured) ABG Methemoglobin Pierre Test A-a O2 Difference Respiratory Index Hgb O2 Saturation Vent Mode Mechanical Rate FiO2 Tidal Volume PEEP Sodium Potassium Chloride Carbon Dioxide Anion Gap BUN Creatinine Est GFR ( Amer) Est GFR (Non-Af Amer) POC Glucose (mg/dL) 174 H 183 H Random Glucose Calcium Phosphorus Magnesium Total Bilirubin AST ALT Alkaline Phosphatase Total Protein Albumin Globulin Albumin/Globulin Ratio HIV 1&2 Antibody Screen Negative 05/06/17 05/06/17 05/06/17 00:09 04:30 06:23 WBC RBC Hgb Hct MCV MCH MCHC RDW Plt Count MPV Neut % (Auto) Lymph % (Auto) Haakon % (Auto) Eos % (Auto) Baso % (Auto) Neut # (Auto) Lymph # (Auto) Haakon # (Auto) Eos # (Auto) Baso # (Auto) Neutrophils % (Manual) Band Neutrophils % Lymphocytes % (Manual) Monocytes % (Manual) Platelet Estimate Large Platelets Polychromasia Hypochromasia (manual) Basophilic Stippling Anisocytosis (manual) Target Cells PT INR APTT Puncture Site Rr pCO2 54 H pO2 119 H HCO3 36.6 H ABG pH 7.48 H ABG Total CO2 41.9 H ABG O2 Saturation 99.5 H ABG Base Excess 14.9 H ABG Hemoglobin 8.9 L ABG Carboxyhemoglobin 2.1 H POC ABG HHb (Measured) 0.5 ABG Methemoglobin 1.3 Pierre Test Pos A-a O2 Difference 170.0 Respiratory Index 1.4 Hgb O2 Saturation 96.2 Vent Mode Prvc Mechanical Rate 18 FiO2 50.0 Tidal Volume 350 PEEP 10 Sodium Potassium Chloride Carbon Dioxide Anion Gap BUN Creatinine Est GFR ( Amer) Est GFR (Non-Af Amer) POC Glucose (mg/dL) 148 H 203 H Random Glucose Calcium Phosphorus Magnesium Total Bilirubin AST ALT Alkaline Phosphatase Total Protein Albumin Globulin Albumin/Globulin Ratio HIV 1&2 Antibody Screen 05/06/17 05/06/17 05/06/17 06:33 06:33 09:09 WBC 20.7 H RBC 3.03 L Hgb 8.5 L Hct 25.3 L MCV 83.5 MCH 28.0 MCHC 33.5 RDW 14.5 Plt Count 312 MPV 8.2 Neut % (Auto) 93.5 H Lymph % (Auto) 3.3 L Haakon % (Auto) 3.2 Eos % (Auto) 0.0 Baso % (Auto) 0.0 Neut # (Auto) 19.4 H Lymph # (Auto) 0.7 L Haakon # (Auto) 0.7 Eos # (Auto) 0.0 Baso # (Auto) 0.0 Neutrophils % (Manual) 90 H Band Neutrophils % 2 Lymphocytes % (Manual) 4 L Monocytes % (Manual) 4 Platelet Estimate Normal Large Platelets Present Polychromasia Slight Hypochromasia (manual) Slight Basophilic Stippling Slight Anisocytosis (manual) Slight Target Cells Slight PT 11.8 INR 1.0 APTT 24 Puncture Site pCO2 pO2 HCO3 ABG pH ABG Total CO2 ABG O2 Saturation ABG Base Excess ABG Hemoglobin ABG Carboxyhemoglobin POC ABG HHb (Measured) ABG Methemoglobin Pierre Test A-a O2 Difference Respiratory Index Hgb O2 Saturation Vent Mode Mechanical Rate FiO2 Tidal Volume PEEP Sodium 144 Potassium 3.8 Chloride 98 Carbon Dioxide 37 H Anion Gap 13 BUN 56 H Creatinine 0.8 Est GFR ( Amer) > 60 Est GFR (Non-Af Amer) > 60 POC Glucose (mg/dL) Random Glucose 164 H Calcium 7.7 L Phosphorus 2.4 L Magnesium 2.1 Total Bilirubin 0.7 AST 29 ALT 59 H Alkaline Phosphatase 138 H Total Protein 5.4 L Albumin 2.7 L Globulin 2.7 Albumin/Globulin Ratio 1.0 HIV 1&2 Antibody Screen Fingerstick Blood Sugar Results: 203 Review of Systems - Review of Systems All systems: reviewed and no additional remarkable complaints except Critical Care Progress Note - Ventilator Checklist Head of Bed 30 Degrees: Yes Daily Sedation Vacation: Yes Daily Assessment of Readiness to Wean: Yes Daily Spontaneous Breathing Trial: Yes PUD Prophalyxis: Yes DVT Prophylaxis: Yes Oral Care with Chlorhexidine Gluconate {CHG}: Yes - Vent Settings MODE:: CPAP Assessment/Plan (1) ARDS (adult respiratory distress syndrome) Assessment and plan: Patient with acute respiratory failure, acute pneumonia on antibiotic. Patient is improving in the oxygenation now. We'll attempt to do the CPAP trial today. Chronic liver disease with hepatitis C On IV Lasix, renal failure is a stable. We'll continue the current treatment. weaning as tolerated Current Visit: Yes Status: Acute (2) Acute respiratory distress syndrome (ARDS) Current Visit: Yes Status: Acute
--- NOTE | 2017-05-06 10:25 | CP.PCM.PN ---
Subjective - Date & Time of Evaluation Date of Evaluation: 05/06/17 Time of Evaluation: 10:21 - Subjective Subjective: still on vent trial of cpap moved her bowel now no dairhea Objective - Vital Signs/Intake and Output Vital Signs (last 24 hours): Temp Pulse Resp BP Pulse Ox 98 F 99 H 22 170/66 H 99 05/06/17 05:00 05/06/17 07:00 05/06/17 07:00 05/06/17 10:00 05/06/17 07:00 Intake and Output: 05/06/17 05/06/17 06:59 18:59 Intake Total 1018.8 147.4 Output Total 1730 50 Balance -711.2 97.4 - Medications Medications: Current Medications Albuterol/Ipratropium (Duoneb 3 Mg/0.5 Mg (3 Ml) Ud) 3 ml INH RQ6 ALEX Last Admin: 05/06/17 07:40 Dose: 3 ml Amlodipine Besylate (Norvasc) 10 mg PO DAILY ALEX Last Admin: 05/06/17 10:00 Dose: 10 mg Enoxaparin Sodium (Lovenox) 40 mg SC DAILY ALEX Last Admin: 05/06/17 10:14 Dose: 40 mg Furosemide (Lasix) 80 mg IVP Q12 ALEX Last Admin: 05/06/17 10:00 Dose: 80 mg Hydromorphone HCl (Dilaudid) 0.5 mg IVP Q6H PRN PRN Reason: pain Last Admin: 05/05/17 12:21 Dose: 0.5 mg Linezolid (Zyvox 600mg/300ml D5w) 600 mg in 300 mls @ 300 mls/hr IVPB Q12H ALEX Last Admin: 05/06/17 00:26 Dose: 300 mls/hr Cefepime HCl (Maxipime Iv 1 Gm Premix) 1 gm in 50 mls @ 100 mls/hr IVPB Q12H ALEX Last Admin: 05/06/17 00:19 Dose: 100 mls/hr Midazolam HCl 100 mg/ Sodium (Chloride) 100 mls @ 1.32 mls/hr IV .Q24H ALEX; 0.02 MG/KG/HR PRN Reason: Protocol Last Admin: 05/02/17 23:35 Dose: Not Given Propofol (Diprivan) 1,000 mg in 100 mls @ 1.985 mls/hr IV .Q24H PRN; Protocol; 5 MCG/KG/MIN PRN Reason: TITRATE PER MD ORDER Last Admin: 05/06/17 09:01 Dose: 10 mcg/kg/min, 3.971 mls/hr Fluconazole (Diflucan Iv 200 Mg/100 Ml Ns) 100 mls @ 100 mls/hr IVPB Q24H [facility] Last Admin: 05/05/17 18:28 Dose: 100 mls/hr Insulin Aspart (Novolog) 0 unit SC Q6 ALEX PRN Reason: Protocol Last Admin: 05/06/17 06:34 Dose: 2 unit Lorazepam (Ativan) 2 mg IVP Q4H PRN PRN Reason: Anxiety Last Admin: 05/05/17 20:59 Dose: 2 mg Methylprednisolone (Solu-Medrol) 40 mg IVP DAILY [facility] Last Admin: 05/06/17 10:00 Dose: 40 mg Metoprolol Tartrate (Lopressor) 25 mg PO BID [facility] Last Admin: 05/06/17 10:00 Dose: 25 mg Nicotine (Nicoderm Cq) 1 patch TD DAILY [facility] Last Admin: 05/06/17 10:01 Dose: 1 patch Pantoprazole Sodium (Protonix Susp) 40 mg GT DAILY [facility] Last Admin: 05/06/17 10:15 Dose: 40 mg Sodium Bicarbonate (Sodium Bicarbonate Tab) 650 mg PO BID [facility] Last Admin: 05/06/17 10:01 Dose: 650 mg Vitamin A (Vitamin A & D Oint Ud Foilpak) 1 ea TOP Q4 PRN PRN Reason: dry lips Last Admin: 05/06/17 00:22 Dose: 1 ea - Labs Labs: 05/06/17 06:33 05/06/17 06:33 PT 11.8 SECONDS (9.7-12.2) 05/06/17 09:09 INR 1.0 05/06/17 09:09 APTT 24 SECONDS (21-34) 05/06/17 09:09 - Constitutional Appears: In Acute Distress - Head Exam Head Exam: NORMAL INSPECTION - Eye Exam Eye Exam: Normal appearance Pupil Exam: NORMAL ACCOMODATION - ENT Exam ENT Exam: Mucous Membranes Moist - Neck Exam Neck Exam: Full ROM - Respiratory Exam Respiratory Exam: Decreased Breath Sounds - Cardiovascular Exam Cardiovascular Exam: REGULAR RHYTHM - GI/Abdominal Exam GI & Abdominal Exam: Normal Bowel Sounds - Rectal Exam Rectal Exam: NORMAL INSPECTION - Exam Exam: NORMAL INSPECTION - Extremities Exam Extremities Exam: Normal Inspection - Back Exam Back Exam: NORMAL INSPECTION - Neurological Exam Neurological Exam: Awake - Psychiatric Exam Psychiatric exam: Normal Affect - Skin Skin Exam: Normal Color, Pallor Assessment and Plan - Assessment and Plan (Free Text) Assessment: uti s/p abd surgery bi;lat infiltrate rf mass pelvis removed lecocytosis Plan: cont icu care
--- NOTE | 2017-05-06 15:46 | CP.PCM.PN ---
Subjective - Date & Time of Evaluation Date of Evaluation: 05/06/17 Time of Evaluation: 08:00 - Subjective Subjective: slow progress iv rx renewed ETT+ no new cultures Objective - Vital Signs/Intake and Output Vital Signs (last 24 hours): Temp Pulse Resp BP Pulse Ox 99.2 F 89 18 165/60 H 98 05/06/17 13:00 05/06/17 15:00 05/06/17 15:00 05/06/17 14:44 05/06/17 15:00 Intake and Output: 05/06/17 05/06/17 06:59 18:59 Intake Total 1018.8 583.2 Output Total 1730 1245 Balance -711.2 -661.8 - Medications Medications: Current Medications Albuterol/Ipratropium (Duoneb 3 Mg/0.5 Mg (3 Ml) Ud) 3 ml INH RQ6 ALEX Last Admin: 05/06/17 13:33 Dose: 3 ml Amlodipine Besylate (Norvasc) 10 mg PO DAILY [facility] Last Admin: 05/06/17 10:00 Dose: 10 mg Enoxaparin Sodium (Lovenox) 40 mg SC DAILY ALEX Last Admin: 05/06/17 10:14 Dose: 40 mg Furosemide (Lasix) 80 mg IVP Q12 ALEX Last Admin: 05/06/17 10:00 Dose: 80 mg Hydromorphone HCl (Dilaudid) 0.5 mg IVP Q6H PRN PRN Reason: pain Last Admin: 05/05/17 12:21 Dose: 0.5 mg Linezolid (Zyvox 600mg/300ml D5w) 600 mg in 300 mls @ 300 mls/hr IVPB Q12H ALEX Last Admin: 05/06/17 12:18 Dose: 300 mls/hr Cefepime HCl (Maxipime Iv 1 Gm Premix) 1 gm in 50 mls @ 100 mls/hr IVPB Q12H [facility] Last Admin: 05/06/17 11:22 Dose: 100 mls/hr Midazolam HCl 100 mg/ Sodium (Chloride) 100 mls @ 1.32 mls/hr IV .Q24H ALEX; 0.02 MG/KG/HR PRN Reason: Protocol Last Admin: 05/02/17 23:35 Dose: Not Given Propofol (Diprivan) 1,000 mg in 100 mls @ 1.985 mls/hr IV .Q24H PRN; Protocol; 5 MCG/KG/MIN PRN Reason: TITRATE PER MD ORDER Last Admin: 05/06/17 09:01 Dose: 10 mcg/kg/min, 3.971 mls/hr Fluconazole (Diflucan Iv 200 Mg/100 Ml Ns) 100 mls @ 100 mls/hr IVPB Q24H [facility] Last Admin: 05/05/17 18:28 Dose: 100 mls/hr Insulin Aspart (Novolog) 0 unit SC Q6 ALEX PRN Reason: Protocol Last Admin: 05/06/17 12:19 Dose: Not Given Lorazepam (Ativan) 2 mg IVP Q4H PRN PRN Reason: Anxiety Last Admin: 05/05/17 20:59 Dose: 2 mg Methylprednisolone (Solu-Medrol) 40 mg IVP DAILY [facility] Last Admin: 05/06/17 10:00 Dose: 40 mg Metoprolol Tartrate (Lopressor) 25 mg PO BID [facility] Last Admin: 05/06/17 10:00 Dose: 25 mg Nicotine (Nicoderm Cq) 1 patch TD DAILY [facility] Last Admin: 05/06/17 10:01 Dose: 1 patch Pantoprazole Sodium (Protonix Susp) 40 mg GT DAILY [facility] Last Admin: 05/06/17 10:15 Dose: 40 mg Sodium Bicarbonate (Sodium Bicarbonate Tab) 650 mg PO BID [facility] Last Admin: 05/06/17 10:01 Dose: 650 mg Vitamin A (Vitamin A & D Oint Ud Foilpak) 1 ea TOP Q4 PRN PRN Reason: dry lips Last Admin: 05/06/17 00:22 Dose: 1 ea - Labs Labs: 05/06/17 06:33 05/06/17 06:33 PT 11.8 SECONDS (9.7-12.2) 05/06/17 09:09 INR 1.0 05/06/17 09:09 APTT 24 SECONDS (21-34) 05/06/17 09:09 - Constitutional Appears: Non-toxic, Chronically Ill - Head Exam Head Exam: NORMOCEPHALIC - Eye Exam Eye Exam: PERRL - ENT Exam ENT Exam: Mucous Membranes Dry - Neck Exam Neck Exam: absent: Lymphadenopathy - Respiratory Exam Respiratory Exam: Decreased Breath Sounds - Cardiovascular Exam Cardiovascular Exam: REGULAR RHYTHM - GI/Abdominal Exam GI & Abdominal Exam: Distended, Soft - Rectal Exam Rectal Exam: Deferred - Exam Exam: NORMAL INSPECTION - Extremities Exam Extremities Exam: Pedal Edema - Back Exam Back Exam: absent: CVA tenderness (L), CVA tenderness (R) Assessment and Plan (1) Pelvic mass in female Status: Acute (2) Abdominal pain Status: Acute (3) Leukocytosis Status: Acute
[2017-05-06] MEDS: Fluconazole IV 200mg/100 ml NS 100 ML IVPB SCH (17:59)
[2017-05-06] MEDS: HYDROmorphone 0.5 mg/0.5 ml ISec IVP PRN (22:00)
[2017-05-07] MEDS: Linezolid 600 mg in D5W 300 ml 600 MG/300 ML BAG IVPB SCH ×3 (00:02→23:55)
[2017-05-07] MEDS: (Novolog) Insulin Aspart, Recombinant 100 u/ml 10 ml vial SC SCH ×4 (00:05→18:26)
[2017-05-07] MEDS: Cefepime IV 1 gm in Dextrose 1 GM/50 ML BAG IVPB SCH ×2 (00:19→11:09)
[2017-05-07] MEDS: Albuterol-Ipratrop 3 mg / 0.5 (3 ml) UD INH SCH ×3 (01:23→21:15)
[2017-05-07 04:58] LABS: ABG ALLEN TEST POS; ARTERIAL BLOOD GAS HCO3 40.7 mmol/L (21-28); ARTERIAL BLOOD GAS HEMOGLOBIN 14.1 g/dL (11.7-17.4); ARTERIAL BLOOD GAS O2 SAT 99.4 % (95-98); ARTERIAL BLOOD GAS PCO2 54 mm/Hg (35-45); ARTERIAL BLOOD GAS PH 7.54 (7.35-7.45); ARTERIAL BLOOD GAS PO2 128 mm/Hg (80-100); ARTERIAL BLOOD GAS TCO2 47.9 mmol/L (22-28)
[2017-05-07] MEDS: Propofol 10 mg/ml 1,000 MG/100 ML VIAL IV PRN (06:26)
[2017-05-07 06:36] LABS: BASO # 0.2 K/uL (0.0-0.2); BASO % 0.7 % (0.0-2.0); EOS # 0.2 K/uL (0.0-0.7); EOS % 0.6 % (0.0-4.0); HEMOGLOBIN 8.1 g/dL (11.0-16.0); LYMPH # 1.8 K/uL (1.0-4.3); LYMPH % 7.5 % (20.0-40.0); MEAN CELL VOLUME 84.6 fL (81.0-99.0); MEAN CORPUSCULAR HEMOGLOBIN 28.2 pg (27.0-31.0); MEAN CORPUSCULAR HGB CONC 33.3 g/dL (33.0-37.0); MEAN PLATELET VOLUME 8.4 fL (7.2-11.7); MONO # 0.7 K/uL (0.0-0.8); NEUT % 88.2 % (50.0-75.0); NRBC % 0.1 % (0.0-2.0); PLATELET COUNT 253 K/uL (130-400); RBC 2.87 Mil/uL (3.80-5.20); RED CELL DISTRIBUTION WIDTH 14.8 % (11.5-14.5); WHITE BLOOD COUNT 23.8 K/uL (4.8-10.8)
--- NOTE | 2017-05-07 06:40 | CP.PCM.PCO ---
Physician Communication Note - Physician Communication Note Physician Communication Note: NaHCO3 d/c because of Ph 7.54 and Bicarb 36
[2017-05-07 06:49] LABS: ALBUMIN 2.5 g/dL (3.5-5.0); ALT/SGPT 53 U/L (9-52); AST/SGOT 28 U/L (14-36); BLOOD UREA NITROGEN 52 mg/dL (7-17); CALCIUM 7.6 mg/dl (8.6-10.4); GFR AFRICAN-AMERICAN > 60; GFR NON-AFRICAN AMERICAN > 60
--- NOTE | 2017-05-07 08:03 | PN ---
DATE: LOCATION: ICU 7. SUBJECTIVE: This is 66-year-old female seen and examined in rounds. 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 No reported active bleeding. The entire chart is reviewed including, but not limited to, the most recent lab and radiology study results, current and previous medication list, current and previous medical events. The patient is still in contact isolation. Today's lab showed white blood cell of 20.7, hemoglobin 8.5, hematocrit 25.3 with abnormal ABG setting and increased CO2 content of 37, BUN 56, creatinine normal indicative of prerenal azotemia with dehydration. Blood glucose level 2 or 3, calcium 7.4, potassium 2.4, AST 59, alkaline phosphatase 138, low albumin 2.7, low total protein 5.4. Today's chest x-ray report is seen indicative of no significant changes. PHYSICAL EXAMINATION: GENERAL: A 66-year-old female, intubated to vent, sedated. VITAL SIGNS: Afebrile with pulse of 96 and blood pressure 172/54. HEENT: Showed pale and dry oral mucous membrane. Nonicteric sclerae. LUNGS: Few scattered crepitation, decreased air entry at bases. HEART: Positive S1 and S2. ABDOMEN: Soft. Bowel sounds are present. No mass or organomegaly. No rebound tenderness or guarding. NG tube is in place. EXTREMITIES: With lower extremity edematous changes. No clubbing or cyanosis. NEUROLOGIC: No reported new neurological deficits, sensory or motor. IMPRESSION: 1. Malnutrition, the patient is a candidate for percutaneous endoscopic gastrostomy insertion. 2. Hypoalbuminemia and hypoproteinemia secondary to above. 3. Pneumonia, respiratory failure, intubated to vent. 4. Acute renal insufficiency before, gradually improving with dehydration. 5. Known history of hyperlipemia. 6. Hyperglycemia. SUGGESTIONS: 1. Agree with your plan. 2. Peripheral hyperalimentation. 3. The patient will need PEG insertion if it is agreeable with family; otherwise, continue current management. Shantel Lakhani MD
--- NOTE | 2017-05-07 08:25 | RAD ---
Chest x-ray single frontal view History: Infiltrate. Comparison: 05/06/2017 Findings: Lines and tubes stable position. Persistent dense confluent airspace opacities throughout both lungs. Moderate bilateral pleural effusions. More confluent consolidative changes at the lung bases. Cardiomegaly. Degenerative changes in the spine and shoulders. Impression: Lines and tubes stable position. Persistent dense confluent airspace opacities throughout both lungs. Moderate bilateral pleural effusions. More confluent consolidative changes at the lung bases. Cardiomegaly.
[2017-05-07 08:30] LABS: LYMPHOCYTE 9 % (20-40); MONOCYTE 3 % (0-10); NEUTROPHIL 88 % (50-75); PLATELET ESTIMATE NORMAL (NORMAL); TOTAL CELLS COUNTED 100
[2017-05-07 08:31] LABS: ANISOCYTOSIS SLIGHT; POIKILOCYTOSIS SLIGHT
[2017-05-07 08:32] LABS: GIANT PLATELETS PRESENT; HYPOCHROMIC SLIGHT; LARGE PLATELETS PRESENT
[2017-05-07] MEDS: MethylPREDNISolone 40 mg Vial IVP SCH (09:38)
[2017-05-07] MEDS: Pantoprazole 40 mg Susp UD GT SCH (09:38)
[2017-05-07] MEDS: Enoxaparin 40 mg Syringe SC SCH (09:54)
--- NOTE | 2017-05-07 10:30 | PN ---
DATE: 05/06/2017 SUBJECTIVE: The patient is on ventilator, improved decrease FiO2. Avel Langley MD
--- NOTE | 2017-05-07 11:32 | CP.CCUPN ---
<Paresh Francis - Last Filed: 05/07/17 11:28> CCU Subjective - Physician Review Subjective (Free Text): 05/07/17 11:28 patient seen and examined at bedside awake and alert following commands decrease sedation CPAP trial today CCU Objective - Vital Signs / Intake & Output Vital Signs (Last 4 hours): Vital Signs Temp Pulse Resp BP Pulse Ox 05/07/17 10:44 78 18 158/59 H 97 05/07/17 10:00 89 17 96 05/07/17 09:44 94 H 15 162/53 H 96 05/07/17 09:39 152/51 H 05/07/17 09:38 152/51 H 05/07/17 09:00 92 H 18 94 L 05/07/17 08:44 97 H 18 152/51 H 94 L 05/07/17 08:00 99 F 87 17 93 L 05/07/17 07:44 88 18 176/48 H 96 Intake and Output (Last 8hrs): Intake & Output 05/06/17 05/07/17 05/07/17 22:59 06:59 14:59 Intake Total 372 762 395 Output Total 1300 1800 440 Balance -928 -1038 -45 Weight 133 lb 13.129 oz Intake: IV 100 Intake, IV Amount 32 382 120 Right Medial Port 350 100 Internal Jugular Right Proximal Port 32 32 20 Internal Jugular Tube Feeding 280 280 175 Other 60 100 Output: Urine 1300 1800 440 Urethral (Tay) 1300 1800 440 Other: # Bowel Movements 0 0 1 - Physical Exam Head: Positive for: Atraumatic, Normocephalic Pupils: Positive for: PERRL Extroacular Muscles: Positive for: EOMI Conjunctiva: Positive for: Normal Respiratory/Chest: Positive for: Rales, Rhonchi Cardiovascular: Positive for: Regular Rate and Rhythm Abdomen: Positive for: Tenderness. Negative for: Distention Psychiatric: Positive for: Alert - Medications Active Medications: Active Medications Generic Name Dose Route Start Last Admin Trade Name Freq PRN Reason Stop Dose Admin Acetazolamide 250 mg 05/07/17 11:30 Diamox 250 Mg Tab PO 05/12/17 11:31 BID ALEX Albuterol/Ipratropium 3 ml 04/27/17 20:00 05/07/17 08:15 Duoneb 3 Mg/0.5 Mg (3 Ml) Ud INH 3 ml RQ6 ALEX Administration Amlodipine Besylate 10 mg 05/05/17 16:15 05/07/17 09:38 Norvasc PO 10 mg DAILY ALEX Administration Enoxaparin Sodium 40 mg 05/04/17 10:00 05/07/17 09:54 Lovenox SC 40 mg DAILY ALEX Administration Furosemide 80 mg 05/04/17 10:00 05/07/17 09:39 Lasix IVP 80 mg Q12 ALEX Administration Hydromorphone HCl 0.5 mg 05/05/17 12:12 05/06/17 22:00 Dilaudid IVP 0.5 mg Q6H PRN Administration pain Linezolid 600 mg in 300 mls @ 300 mls/hr 05/01/17 12:00 05/07/17 00:02 Zyvox 600mg/300ml D5w IVPB 300 mls/hr Q12H ALEX Administration Cefepime HCl 1 gm in 50 mls @ 100 mls/hr 05/01/17 11:30 05/07/17 11:09 Maxipime Iv 1 Gm Premix IVPB 100 mls/hr Q12H ALEX Administration Propofol 1,000 mg in 100 mls @ 1.985 mls/hr 05/02/17 02:14 05/07/17 06:26 Diprivan IV 10 mcg/kg/min .Q24H PRN 3.971 mls/hr TITRATE PER MD ORDER Administration Protocol 5 MCG/KG/MIN Fluconazole 100 mls @ 100 mls/hr 05/04/17 19:00 05/06/17 17:59 Diflucan Iv 200 Mg/100 Ml Ns IVPB 100 mls/hr Q24H ALEX Administration Potassium Chloride 20 meq in 100 mls @ 50 mls/hr 05/07/17 10:00 05/07/17 09: 37 Potassium Chloride 20 Meq/100 Ml IVPB 05/07/17 13:59 50 mls/hr Q2H ALEX Administration Insulin Aspart 0 unit 05/03/17 12:00 05/07/17 06:28 Novolog SC Not Given Q6 ALEX Protocol Lorazepam 2 mg 05/01/17 21:54 05/07/17 01:40 Ativan IVP 2 mg Q4H PRN Administration Anxiety Losartan Potassium 25 mg 05/07/17 10:45 Cozaar PO DAILY ALEX Methylprednisolone 40 mg 05/06/17 10:00 05/07/17 09:38 Solu-Medrol IVP 40 mg DAILY ALEX Administration Metoprolol Tartrate 25 mg 05/06/17 10:00 05/07/17 09:38 Lopressor PO 25 mg BID ALEX Administration Nicotine 1 patch 05/05/17 10:15 05/07/17 09:54 Nicoderm Cq TD 1 patch DAILY ALEX Administration Pantoprazole Sodium 40 mg 05/06/17 10:00 05/07/17 09:38 Protonix Susp GT 40 mg DAILY ALEX Administration Vitamin A 1 ea 05/01/17 12:38 05/06/17 21:53 Vitamin A & D Oint Ud Foilpak TOP 1 ea Q4 PRN Administration dry lips - Patient Studies Lab Studies: Lab Studies 05/07/17 05/07/17 05/07/17 Range/Units 06:31 06:30 05:50 WBC 23.8 H (4.8-10.8) K/uL RBC 2.87 L (3.80-5.20) Mil/uL Hgb 8.1 L (11.0-16.0) g/dL Hct 24.3 L (34.0-47.0) % MCV 84.6 (81.0-99.0) fL MCH 28.2 (27.0-31.0) pg MCHC 33.3 (33.0-37.0) g/dL RDW 14.8 H (11.5-14.5) % Plt Count 253 (130-400) K/uL MPV 8.4 (7.2-11.7) fL Neut % (Auto) 88.2 H (50.0-75.0) % Lymph % (Auto) 7.5 L (20.0-40.0) % Wetzel % (Auto) 3.0 (0.0-10.0) % Eos % (Auto) 0.6 (0.0-4.0) % Baso % (Auto) 0.7 (0.0-2.0) % Neut # (Auto) 21.0 H (1.8-7.0) K/uL Lymph # (Auto) 1.8 (1.0-4.3) K/uL Wetzel # (Auto) 0.7 (0.0-0.8) K/uL Eos # (Auto) 0.2 (0.0-0.7) K/uL Baso # (Auto) 0.2 (0.0-0.2) K/uL Neutrophils % (Manual) 88 H (50-75) % Lymphocytes % (Manual) 9 L (20-40) % Monocytes % (Manual) 3 (0-10) % Platelet Estimate Normal (NORMAL) Large Platelets Present Giant Platelets Present Hypochromasia (manual) Slight Poikilocytosis (manual Slight Anisocytosis (manual) Slight Puncture Site pCO2 (35-45) mm/Hg pO2 (80-100) mm/Hg HCO3 (21-28) mmol/L ABG pH (7.35-7.45) ABG Total CO2 (22-28) mmol/L ABG O2 Saturation (95-98) % ABG Base Excess (-2.0-3.0) mmol/L ABG Hemoglobin (11.7-17.4) g/dL ABG Carboxyhemoglobin (0.5-1.5) % POC ABG HHb (Measured) (0.0-5.0) % ABG Methemoglobin (0.0-3.0) % Pierre Test A-a O2 Difference mm/Hg Respiratory Index Hgb O2 Saturation (95.0-98.0) % Vent Mode Mechanical Rate FiO2 % Tidal Volume PEEP Crit Value Called To Crit Value Called By Crit Value Read Back Blood Gas Notified Time Sodium 145 (132-148) mmol/L Potassium 3.4 L (3.6-5.2) mmol/L Chloride 97 L (98-107) mmol/L Carbon Dioxide 44 H* (22-30) mmol/L Anion Gap 7 L (10-20) BUN 52 H (7-17) mg/dL Creatinine 0.8 (0.7-1.2) mg/dL Est GFR ( Amer) > 60 Est GFR (Non-Af Amer) > 60 POC Glucose (mg/dL) 133 H (65-110) mg/dL Random Glucose 119 H (65-105) mg/dL Calcium 7.6 L (8.6-10.4) mg/dl Total Bilirubin 0.3 (0.2-1.3) mg/dL AST 28 (14-36) U/L ALT 53 H (9-52) U/L Alkaline Phosphatase 133 H (38-126) U/L Total Protein 5.0 L (6.3-8.3) g/dL Albumin 2.5 L (3.5-5.0) g/dL Globulin 2.6 (2.2-3.9) gm/dL Albumin/Globulin Ratio 1.0 (1.0-2.1) 05/07/17 05/06/17 05/06/17 Range/Units 04:45 23:43 17:43 WBC (4.8-10.8) K/uL RBC (3.80-5.20) Mil/uL Hgb (11.0-16.0) g/dL Hct (34.0-47.0) % MCV (81.0-99.0) fL MCH (27.0-31.0) pg MCHC (33.0-37.0) g/dL RDW (11.5-14.5) % Plt Count (130-400) K/uL MPV (7.2-11.7) fL Neut % (Auto) (50.0-75.0) % Lymph % (Auto) (20.0-40.0) % Wetzel % (Auto) (0.0-10.0) % Eos % (Auto) (0.0-4.0) % Baso % (Auto) (0.0-2.0) % Neut # (Auto) (1.8-7.0) K/uL Lymph # (Auto) (1.0-4.3) K/uL Wetzel # (Auto) (0.0-0.8) K/uL Eos # (Auto) (0.0-0.7) K/uL Baso # (Auto) (0.0-0.2) K/uL Neutrophils % (Manual) (50-75) % Lymphocytes % (Manual) (20-40) % Monocytes % (Manual) (0-10) % Platelet Estimate (NORMAL) Large Platelets Giant Platelets Hypochromasia (manual) Poikilocytosis (manual Anisocytosis (manual) Puncture Site Rr pCO2 54 H (35-45) mm/Hg pO2 128 H (80-100) mm/Hg HCO3 40.7 H* (21-28) mmol/L ABG pH 7.54 H (7.35-7.45) ABG Total CO2 47.9 H (22-28) mmol/L ABG O2 Saturation 99.4 H (95-98) % ABG Base Excess 20.3 H (-2.0-3.0) mmol/L ABG Hemoglobin 14.1 (11.7-17.4) g/dL ABG Carboxyhemoglobin 2.4 H (0.5-1.5) % POC ABG HHb (Measured) 0.6 (0.0-5.0) % ABG Methemoglobin 1.1 (0.0-3.0) % Pierre Test Pos A-a O2 Difference 161.0 mm/Hg Respiratory Index 1.3 Hgb O2 Saturation 95.9 (95.0-98.0) % Vent Mode Prvc Mechanical Rate 18 FiO2 50.0 % Tidal Volume 400 PEEP 5 Crit Value Called To Farrah giordano/rn Crit Value Called By Daniel smith/rt Crit Value Read Back Y Blood Gas Notified Time 500 Sodium (132-148) mmol/L Potassium (3.6-5.2) mmol/L Chloride (98-107) mmol/L Carbon Dioxide (22-30) mmol/L Anion Gap (10-20) BUN (7-17) mg/dL Creatinine (0.7-1.2) mg/dL Est GFR ( Amer) Est GFR (Non-Af Amer) POC Glucose (mg/dL) 144 H 156 H (65-110) mg/dL Random Glucose (65-105) mg/dL Calcium (8.6-10.4) mg/dl Total Bilirubin (0.2-1.3) mg/dL AST (14-36) U/L ALT (9-52) U/L Alkaline Phosphatase (38-126) U/L Total Protein (6.3-8.3) g/dL Albumin (3.5-5.0) g/dL Globulin (2.2-3.9) gm/dL Albumin/Globulin Ratio (1.0-2.1) 05/06/17 Range/Units 11:48 WBC (4.8-10.8) K/uL RBC (3.80-5.20) Mil/uL Hgb (11.0-16.0) g/dL Hct (34.0-47.0) % MCV (81.0-99.0) fL MCH (27.0-31.0) pg MCHC (33.0-37.0) g/dL RDW (11.5-14.5) % Plt Count (130-400) K/uL MPV (7.2-11.7) fL Neut % (Auto) (50.0-75.0) % Lymph % (Auto) (20.0-40.0) % Wetzel % (Auto) (0.0-10.0) % Eos % (Auto) (0.0-4.0) % Baso % (Auto) (0.0-2.0) % Neut # (Auto) (1.8-7.0) K/uL Lymph # (Auto) (1.0-4.3) K/uL Wetzel # (Auto) (0.0-0.8) K/uL Eos # (Auto) (0.0-0.7) K/uL Baso # (Auto) (0.0-0.2) K/uL Neutrophils % (Manual) (50-75) % Lymphocytes % (Manual) (20-40) % Monocytes % (Manual) (0-10) % Platelet Estimate (NORMAL) Large Platelets Giant Platelets Hypochromasia (manual) Poikilocytosis (manual Anisocytosis (manual) Puncture Site pCO2 (35-45) mm/Hg pO2 (80-100) mm/Hg HCO3 (21-28) mmol/L ABG pH (7.35-7.45) ABG Total CO2 (22-28) mmol/L ABG O2 Saturation (95-98) % ABG Base Excess (-2.0-3.0) mmol/L ABG Hemoglobin (11.7-17.4) g/dL ABG Carboxyhemoglobin (0.5-1.5) % POC ABG HHb (Measured) (0.0-5.0) % ABG Methemoglobin (0.0-3.0) % Pierre Test A-a O2 Difference mm/Hg Respiratory Index Hgb O2 Saturation (95.0-98.0) % Vent Mode Mechanical Rate FiO2 % Tidal Volume PEEP Crit Value Called To Crit Value Called By Crit Value Read Back Blood Gas Notified Time Sodium (132-148) mmol/L Potassium (3.6-5.2) mmol/L Chloride (98-107) mmol/L Carbon Dioxide (22-30) mmol/L Anion Gap (10-20) BUN (7-17) mg/dL Creatinine (0.7-1.2) mg/dL Est GFR ( Amer) Est GFR (Non-Af Amer) POC Glucose (mg/dL) 137 H (65-110) mg/dL Random Glucose (65-105) mg/dL Calcium (8.6-10.4) mg/dl Total Bilirubin (0.2-1.3) mg/dL AST (14-36) U/L ALT (9-52) U/L Alkaline Phosphatase (38-126) U/L Total Protein (6.3-8.3) g/dL Albumin (3.5-5.0) g/dL Globulin (2.2-3.9) gm/dL Albumin/Globulin Ratio (1.0-2.1) Laboratory Results - last 24 hr 05/06/17 05/06/17 05/06/17 11:48 17:43 23:43 WBC RBC Hgb Hct MCV MCH MCHC RDW Plt Count MPV Neut % (Auto) Lymph % (Auto) Wetzel % (Auto) Eos % (Auto) Baso % (Auto) Neut # (Auto) Lymph # (Auto) Wetzel # (Auto) Eos # (Auto) Baso # (Auto) Neutrophils % (Manual) Lymphocytes % (Manual) Monocytes % (Manual) Platelet Estimate Large Platelets Giant Platelets Hypochromasia (manual) Poikilocytosis (manual Anisocytosis (manual) Puncture Site pCO2 pO2 HCO3 ABG pH ABG Total CO2 ABG O2 Saturation ABG Base Excess ABG Hemoglobin ABG Carboxyhemoglobin POC ABG HHb (Measured) ABG Methemoglobin Pierre Test A-a O2 Difference Respiratory Index Hgb O2 Saturation Vent Mode Mechanical Rate FiO2 Tidal Volume PEEP Crit Value Called To Crit Value Called By Crit Value Read Back Blood Gas Notified Time Sodium Potassium Chloride Carbon Dioxide Anion Gap BUN Creatinine Est GFR ( Amer) Est GFR (Non-Af Amer) POC Glucose (mg/dL) 137 H 156 H 144 H Random Glucose Calcium Total Bilirubin AST ALT Alkaline Phosphatase Total Protein Albumin Globulin Albumin/Globulin Ratio 05/07/17 05/07/17 05/07/17 04:45 05:50 06:30 WBC 23.8 H RBC 2.87 L Hgb 8.1 L Hct 24.3 L MCV 84.6 MCH 28.2 MCHC 33.3 RDW 14.8 H Plt Count 253 MPV 8.4 Neut % (Auto) 88.2 H Lymph % (Auto) 7.5 L Wetzel % (Auto) 3.0 Eos % (Auto) 0.6 Baso % (Auto) 0.7 Neut # (Auto) 21.0 H Lymph # (Auto) 1.8 Wetzel # (Auto) 0.7 Eos # (Auto) 0.2 Baso # (Auto) 0.2 Neutrophils % (Manual) 88 H Lymphocytes % (Manual) 9 L Monocytes % (Manual) 3 Platelet Estimate Normal Large Platelets Present Giant Platelets Present Hypochromasia (manual) Slight Poikilocytosis (manual Slight Anisocytosis (manual) Slight Puncture Site Rr pCO2 54 H pO2 128 H HCO3 40.7 H* ABG pH 7.54 H ABG Total CO2 47.9 H ABG O2 Saturation 99.4 H ABG Base Excess 20.3 H ABG Hemoglobin 14.1 ABG Carboxyhemoglobin 2.4 H POC ABG HHb (Measured) 0.6 ABG Methemoglobin 1.1 Pierre Test Pos A-a O2 Difference 161.0 Respiratory Index 1.3 Hgb O2 Saturation 95.9 Vent Mode Prvc Mechanical Rate 18 FiO2 50.0 Tidal Volume 400 PEEP 5 Crit Value Called To Farrah giordano/rn Crit Value Called By Daniel smith/rt Crit Value Read Back Y Blood Gas Notified Time 500 Sodium Potassium Chloride Carbon Dioxide Anion Gap BUN Creatinine Est GFR ( Amer) Est GFR (Non-Af Amer) POC Glucose (mg/dL) 133 H Random Glucose Calcium Total Bilirubin AST ALT Alkaline Phosphatase Total Protein Albumin Globulin Albumin/Globulin Ratio 05/07/17 06:31 WBC RBC Hgb Hct MCV MCH MCHC RDW Plt Count MPV Neut % (Auto) Lymph % (Auto) Wetzel % (Auto) Eos % (Auto) Baso % (Auto) Neut # (Auto) Lymph # (Auto) Wetzel # (Auto) Eos # (Auto) Baso # (Auto) Neutrophils % (Manual) Lymphocytes % (Manual) Monocytes % (Manual) Platelet Estimate Large Platelets Giant Platelets Hypochromasia (manual) Poikilocytosis (manual Anisocytosis (manual) Puncture Site pCO2 pO2 HCO3 ABG pH ABG Total CO2 ABG O2 Saturation ABG Base Excess ABG Hemoglobin ABG Carboxyhemoglobin POC ABG HHb (Measured) ABG Methemoglobin Pierre Test A-a O2 Difference Respiratory Index Hgb O2 Saturation Vent Mode Mechanical Rate FiO2 Tidal Volume PEEP Crit Value Called To Crit Value Called By Crit Value Read Back Blood Gas Notified Time Sodium 145 Potassium 3.4 L Chloride 97 L Carbon Dioxide 44 H* Anion Gap 7 L BUN 52 H Creatinine 0.8 Est GFR ( Amer) > 60 Est GFR (Non-Af Amer) > 60 POC Glucose (mg/dL) Random Glucose 119 H Calcium 7.6 L Total Bilirubin 0.3 AST 28 ALT 53 H Alkaline Phosphatase 133 H Total Protein 5.0 L Albumin 2.5 L Globulin 2.6 Albumin/Globulin Ratio 1.0 Fingerstick Blood Sugar Results: 133 Assessment/Plan - Assessment and Plan (Free Text) Assessment: 66yo F s/p left ovarian salpingo-oopherectomy, post-op c/b aspiration pneumonitis with subsequent ARDS. Neuro: off of paralytics. mild sedation with propofol, awake and alert Pulm: aspiration pneumonia/pneumonitis with moderate ARDS. lung protective strategies. CPAP trial today, O2 decrease to 40, tolerating well so far CV: hemodynamically stable. Hem: benign cystadenoma Renal: nephrotic syndrome, diuresis lasix 80mg IV q12h. d/c bicarb drip, Bicarb 40. Will follow GI: Jevity ID: [id number] UTI, continue Zyvox, Cefepime, fluconazole DVT proph - lovenox GI proph - protonix po tay for strict I/O's during acute illness Code status - full code <Jaki Ortiz - Last Filed: 05/07/17 18:21> CCU Objective - Vital Signs / Intake & Output Vital Signs (Last 4 hours): Vital Signs Pulse Resp BP Pulse Ox 05/07/17 18:10 176/63 H 05/07/17 14:44 83 17 159/70 H 96 Intake and Output (Last 8hrs): Intake & Output 02/26/18 02/26/18 02/26/18 06:59 14:59 22:59 Intake Total 762 945 Output Total 1800 2340 Balance -1038 -1395 Weight 133 lb 13.129 oz Intake: IV 100 Intake, IV Amount 382 570 Right Medial Port 350 550 Internal Jugular Right Proximal Port 32 20 Internal Jugular Tube Feeding 280 175 Other 200 Output: Urine 1800 2340 Urethral (Tay) 1800 2340 Other: # Bowel Movements 0 1 - Medications Active Medications: Active Medications Generic Name Dose Route Start Last Admin Trade Name Freq PRN Reason Stop Dose Admin Acetazolamide 250 mg 05/07/17 11:30 05/07/17 18:10 Diamox 250 Mg Tab PO 05/12/17 11:31 250 mg BID ALEX Administration Albuterol/Ipratropium 3 ml 04/27/17 20:00 05/07/17 08:15 Duoneb 3 Mg/0.5 Mg (3 Ml) Ud INH 3 ml RQ6 ALEX Administration Amlodipine Besylate 10 mg 05/05/17 16:15 05/07/17 09:38 Norvasc PO 10 mg DAILY ALEX Administration Enoxaparin Sodium 40 mg 05/04/17 10:00 05/07/17 09:54 Lovenox SC 40 mg DAILY ALEX Administration Furosemide 80 mg 05/04/17 10:00 05/07/17 09:39 Lasix IVP 80 mg Q12 ALEX Administration Hydromorphone HCl 0.5 mg 05/05/17 12:12 05/06/17 22:00 Dilaudid IVP 0.5 mg Q6H PRN Administration pain Linezolid 600 mg in 300 mls @ 300 mls/hr 05/01/17 12:00 05/07/17 12:02 Zyvox 600mg/300ml D5w IVPB 300 mls/hr Q12H ALEX Administration Propofol 1,000 mg in 100 mls @ 1.985 mls/hr 05/02/17 02:14 05/07/17 06:26 Diprivan IV 10 mcg/kg/min .Q24H PRN 3.971 mls/hr TITRATE PER MD ORDER Administration Protocol 5 MCG/KG/MIN Fluconazole 100 mls @ 100 mls/hr 05/04/17 19:00 05/07/17 18:10 Diflucan Iv 200 Mg/100 Ml Ns IVPB 100 mls/hr Q24H ALEX Administration Cefepime HCl 1 gm/ Sodium 100 mls @ 100 mls/hr 05/07/17 23:00 Chloride IVPB Q12H ALXE Insulin Aspart 0 unit 05/03/17 12:00 05/07/17 12:43 Novolog SC Not Given Q6 [facility] Protocol Lorazepam 2 mg 05/01/17 21:54 05/07/17 01:40 Ativan IVP 2 mg Q4H PRN Administration Anxiety Losartan Potassium 25 mg 05/07/17 10:45 05/07/17 11:59 Cozaar PO 25 mg DAILY ALEX Administration Methylprednisolone 40 mg 05/06/17 10:00 05/07/17 09:38 Solu-Medrol IVP 40 mg DAILY ALEX Administration Metoprolol Tartrate 25 mg 05/06/17 10:00 05/07/17 18:10 Lopressor PO 25 mg BID ALEX Administration Nicotine 1 patch 05/05/17 10:15 05/07/17 09:54 Nicoderm Cq TD 1 patch DAILY ALEX Administration Pantoprazole Sodium 40 mg 05/06/17 10:00 05/07/17 09:38 Protonix Susp GT 40 mg DAILY ALEX Administration Potassium Chloride 20 meq 05/07/17 18:00 05/07/17 18:09 K-Dur 20 Meq Er Tab PO 05/09/17 18:01 20 meq BID ALEX Administration Vitamin A 1 ea 05/01/17 12:38 05/06/17 21:53 Vitamin A & D Oint Ud Foilpak TOP 1 ea Q4 PRN Administration dry lips - Patient Studies Lab Studies: Lab Studies 05/07/17 05/07/17 05/07/17 Range/Units 17:22 14:25 12:25 WBC (4.8-10.8) K/uL RBC (3.80-5.20) Mil/uL Hgb (11.0-16.0) g/dL Hct (34.0-47.0) % MCV (81.0-99.0) fL MCH (27.0-31.0) pg MCHC (33.0-37.0) g/dL RDW (11.5-14.5) % Plt Count (130-400) K/uL MPV (7.2-11.7) fL Neut % (Auto) (50.0-75.0) % Lymph % (Auto) (20.0-40.0) % Wetzel % (Auto) (0.0-10.0) % Eos % (Auto) (0.0-4.0) % Baso % (Auto) (0.0-2.0) % Neut # (Auto) (1.8-7.0) K/uL Lymph # (Auto) (1.0-4.3) K/uL Wetzel # (Auto) (0.0-0.8) K/uL Eos # (Auto) (0.0-0.7) K/uL Baso # (Auto) (0.0-0.2) K/uL Neutrophils % (Manual) (50-75) % Lymphocytes % (Manual) (20-40) % Monocytes % (Manual) (0-10) % Platelet Estimate (NORMAL) Large Platelets Giant Platelets Hypochromasia (manual) Poikilocytosis (manual Anisocytosis (manual) Puncture Site Lf pCO2 57 H (35-45) mm/Hg pO2 73 L (80-100) mm/Hg HCO3 42.4 H* (21-28) mmol/L ABG pH 7.54 H (7.35-7.45) ABG Total CO2 50.4 H (22-28) mmol/L ABG O2 Saturation 97.3 (95-98) % ABG Base Excess 22.4 H (-2.0-3.0) mmol/L ABG Hemoglobin (11.7-17.4) g/dL ABG Carboxyhemoglobin (0.5-1.5) % POC ABG HHb (Measured) (0.0-5.0) % ABG Methemoglobin (0.0-3.0) % Pierre Test Na ABG Potassium 3.3 L (3.6-5.2) mmol/L A-a O2 Difference 141.0 mm/Hg Respiratory Index 1.9 Hgb O2 Saturation (95.0-98.0) % Glucose 134 H (65-105) mg/dl Lactate 2.4 H (0.7-2.1) mmol/L Vent Mode Mechanical Rate FiO2 40.0 % Tidal Volume PEEP Pressure Support 12 CPAP 5 Crit Value Called To Dr ortiz Crit Value Called By Srinivasa george machine gun mechanic Crit Value Read Back Y Blood Gas Notified Time 1445 Sodium 149.0 H (132-148) mmol/L Potassium (3.6-5.2) mmol/L Chloride 104.0 (98-107) mmol/L Carbon Dioxide (22-30) mmol/L Anion Gap (10-20) BUN (7-17) mg/dL Creatinine (0.7-1.2) mg/dL Est GFR ( Amer) Est GFR (Non-Af Amer) POC Glucose (mg/dL) 116 H (65-110) mg/dL Random Glucose (65-105) mg/dL Calcium (8.6-10.4) mg/dl Total Bilirubin (0.2-1.3) mg/dL AST (14-36) U/L ALT (9-52) U/L Alkaline Phosphatase (38-126) U/L Total Protein (6.3-8.3) g/dL Albumin (3.5-5.0) g/dL Globulin (2.2-3.9) gm/dL Albumin/Globulin Ratio (1.0-2.1) Arterial Blood Potassium 3.3 L (3.6-5.2) mmol/L C. difficile Ag & Toxin Negative (NEGATIVE) 05/07/17 05/07/17 05/07/17 Range/Units 11:47 06:31 06:30 WBC 23.8 H (4.8-10.8) K/uL RBC 2.87 L (3.80-5.20) Mil/uL Hgb 8.1 L (11.0-16.0) g/dL Hct 24.3 L (34.0-47.0) % MCV 84.6 (81.0-99.0) fL MCH 28.2 (27.0-31.0) pg MCHC 33.3 (33.0-37.0) g/dL RDW 14.8 H (11.5-14.5) % Plt Count 253 (130-400) K/uL MPV 8.4 (7.2-11.7) fL Neut % (Auto) 88.2 H (50.0-75.0) % Lymph % (Auto) 7.5 L (20.0-40.0) % Wetzel % (Auto) 3.0 (0.0-10.0) % Eos % (Auto) 0.6 (0.0-4.0) % Baso % (Auto) 0.7 (0.0-2.0) % Neut # (Auto) 21.0 H (1.8-7.0) K/uL Lymph # (Auto) 1.8 (1.0-4.3) K/uL Wetzel # (Auto) 0.7 (0.0-0.8) K/uL Eos # (Auto) 0.2 (0.0-0.7) K/uL Baso # (Auto) 0.2 (0.0-0.2) K/uL Neutrophils % (Manual) 88 H (50-75) % Lymphocytes % (Manual) 9 L (20-40) % Monocytes % (Manual) 3 (0-10) % Platelet Estimate Normal (NORMAL) Large Platelets Present Giant Platelets Present Hypochromasia (manual) Slight Poikilocytosis (manual Slight Anisocytosis (manual) Slight Puncture Site pCO2 (35-45) mm/Hg pO2 (80-100) mm/Hg HCO3 (21-28) mmol/L ABG pH (7.35-7.45) ABG Total CO2 (22-28) mmol/L ABG O2 Saturation (95-98) % ABG Base Excess (-2.0-3.0) mmol/L ABG Hemoglobin (11.7-17.4) g/dL ABG Carboxyhemoglobin (0.5-1.5) % POC ABG HHb (Measured) (0.0-5.0) % ABG Methemoglobin (0.0-3.0) % Pierre Test ABG Potassium (3.6-5.2) mmol/L A-a O2 Difference mm/Hg Respiratory Index Hgb O2 Saturation (95.0-98.0) % Glucose (65-105) mg/dl Lactate (0.7-2.1) mmol/L Vent Mode Mechanical Rate FiO2 % Tidal Volume PEEP Pressure Support CPAP Crit Value Called To Crit Value Called By Crit Value Read Back Blood Gas Notified Time Sodium 145 (132-148) mmol/L Potassium 3.4 L (3.6-5.2) mmol/L Chloride 97 L (98-107) mmol/L Carbon Dioxide 44 H* (22-30) mmol/L Anion Gap 7 L (10-20) BUN 52 H (7-17) mg/dL Creatinine 0.8 (0.7-1.2) mg/dL Est GFR ( Amer) > 60 Est GFR (Non-Af Amer) > 60 POC Glucose (mg/dL) 121 H (65-110) mg/dL Random Glucose 119 H (65-105) mg/dL Calcium 7.6 L (8.6-10.4) mg/dl Total Bilirubin 0.3 (0.2-1.3) mg/dL AST 28 (14-36) U/L ALT 53 H (9-52) U/L Alkaline Phosphatase 133 H (38-126) U/L Total Protein 5.0 L (6.3-8.3) g/dL Albumin 2.5 L (3.5-5.0) g/dL Globulin 2.6 (2.2-3.9) gm/dL Albumin/Globulin Ratio 1.0 (1.0-2.1) Arterial Blood Potassium (3.6-5.2) mmol/L C. difficile Ag & Toxin (NEGATIVE) 05/07/17 05/07/17 05/06/17 Range/Units 05:50 04:45 23:43 WBC (4.8-10.8) K/uL RBC (3.80-5.20) Mil/uL Hgb (11.0-16.0) g/dL Hct (34.0-47.0) % MCV (81.0-99.0) fL MCH (27.0-31.0) pg MCHC (33.0-37.0) g/dL RDW (11.5-14.5) % Plt Count (130-400) K/uL MPV (7.2-11.7) fL Neut % (Auto) (50.0-75.0) % Lymph % (Auto) (20.0-40.0) % Wetzel % (Auto) (0.0-10.0) % Eos % (Auto) (0.0-4.0) % Baso % (Auto) (0.0-2.0) % Neut # (Auto) (1.8-7.0) K/uL Lymph # (Auto) (1.0-4.3) K/uL Wetzel # (Auto) (0.0-0.8) K/uL Eos # (Auto) (0.0-0.7) K/uL Baso # (Auto) (0.0-0.2) K/uL Neutrophils % (Manual) (50-75) % Lymphocytes % (Manual) (20-40) % Monocytes % (Manual) (0-10) % Platelet Estimate (NORMAL) Large Platelets Giant Platelets Hypochromasia (manual) Poikilocytosis (manual Anisocytosis (manual) Puncture Site Rr pCO2 54 H (35-45) mm/Hg pO2 128 H (80-100) mm/Hg HCO3 40.7 H* (21-28) mmol/L ABG pH 7.54 H (7.35-7.45) ABG Total CO2 47.9 H (22-28) mmol/L ABG O2 Saturation 99.4 H (95-98) % ABG Base Excess 20.3 H (-2.0-3.0) mmol/L ABG Hemoglobin 14.1 (11.7-17.4) g/dL ABG Carboxyhemoglobin 2.4 H (0.5-1.5) % POC ABG HHb (Measured) 0.6 (0.0-5.0) % ABG Methemoglobin 1.1 (0.0-3.0) % Pierre Test Pos ABG Potassium (3.6-5.2) mmol/L A-a O2 Difference 161.0 mm/Hg Respiratory Index 1.3 Hgb O2 Saturation 95.9 (95.0-98.0) % Glucose (65-105) mg/dl Lactate (0.7-2.1) mmol/L Vent Mode Prvc Mechanical Rate 18 FiO2 50.0 % Tidal Volume 400 PEEP 5 Pressure Support CPAP Crit Value Called To Farrah giordano/rn Crit Value Called By Daniel smith/rt Crit Value Read Back Y Blood Gas Notified Time 500 Sodium (132-148) mmol/L Potassium (3.6-5.2) mmol/L Chloride (98-107) mmol/L Carbon Dioxide (22-30) mmol/L Anion Gap (10-20) BUN (7-17) mg/dL Creatinine (0.7-1.2) mg/dL Est GFR ( Amer) Est GFR (Non-Af Amer) POC Glucose (mg/dL) 133 H 144 H (65-110) mg/dL Random Glucose (65-105) mg/dL Calcium (8.6-10.4) mg/dl Total Bilirubin (0.2-1.3) mg/dL AST (14-36) U/L ALT (9-52) U/L Alkaline Phosphatase (38-126) U/L Total Protein (6.3-8.3) g/dL Albumin (3.5-5.0) g/dL Globulin (2.2-3.9) gm/dL Albumin/Globulin Ratio (1.0-2.1) Arterial Blood Potassium (3.6-5.2) mmol/L C. difficile Ag & Toxin (NEGATIVE) 05/06/17 Range/Units 17:43 WBC (4.8-10.8) K/uL RBC (3.80-5.20) Mil/uL Hgb (11.0-16.0) g/dL Hct (34.0-47.0) % MCV (81.0-99.0) fL MCH (27.0-31.0) pg MCHC (33.0-37.0) g/dL RDW (11.5-14.5) % Plt Count (130-400) K/uL MPV (7.2-11.7) fL Neut % (Auto) (50.0-75.0) % Lymph % (Auto) (20.0-40.0) % Wetzel % (Auto) (0.0-10.0) % Eos % (Auto) (0.0-4.0) % Baso % (Auto) (0.0-2.0) % Neut # (Auto) (1.8-7.0) K/uL Lymph # (Auto) (1.0-4.3) K/uL Wetzel # (Auto) (0.0-0.8) K/uL Eos # (Auto) (0.0-0.7) K/uL Baso # (Auto) (0.0-0.2) K/uL Neutrophils % (Manual) (50-75) % Lymphocytes % (Manual) (20-40) % Monocytes % (Manual) (0-10) % Platelet Estimate (NORMAL) Large Platelets Giant Platelets Hypochromasia (manual) Poikilocytosis (manual Anisocytosis (manual) Puncture Site pCO2 (35-45) mm/Hg pO2 (80-100) mm/Hg HCO3 (21-28) mmol/L ABG pH (7.35-7.45) ABG Total CO2 (22-28) mmol/L ABG O2 Saturation (95-98) % ABG Base Excess (-2.0-3.0) mmol/L ABG Hemoglobin (11.7-17.4) g/dL ABG Carboxyhemoglobin (0.5-1.5) % POC ABG HHb (Measured) (0.0-5.0) % ABG Methemoglobin (0.0-3.0) % Pierre Test ABG Potassium (3.6-5.2) mmol/L A-a O2 Difference mm/Hg Respiratory Index Hgb O2 Saturation (95.0-98.0) % Glucose (65-105) mg/dl Lactate (0.7-2.1) mmol/L Vent Mode Mechanical Rate FiO2 % Tidal Volume PEEP Pressure Support CPAP Crit Value Called To Crit Value Called By Crit Value Read Back Blood Gas Notified Time Sodium (132-148) mmol/L Potassium (3.6-5.2) mmol/L Chloride (98-107) mmol/L Carbon Dioxide (22-30) mmol/L Anion Gap (10-20) BUN (7-17) mg/dL Creatinine (0.7-1.2) mg/dL Est GFR ( Amer) Est GFR (Non-Af Amer) POC Glucose (mg/dL) 156 H (65-110) mg/dL Random Glucose (65-105) mg/dL Calcium (8.6-10.4) mg/dl Total Bilirubin (0.2-1.3) mg/dL AST (14-36) U/L ALT (9-52) U/L Alkaline Phosphatase (38-126) U/L Total Protein (6.3-8.3) g/dL Albumin (3.5-5.0) g/dL Globulin (2.2-3.9) gm/dL Albumin/Globulin Ratio (1.0-2.1) Arterial Blood Potassium (3.6-5.2) mmol/L C. difficile Ag & Toxin (NEGATIVE) Laboratory Results - last 24 hr 05/06/17 05/06/17 05/07/17 17:43 23:43 04:45 WBC RBC Hgb Hct MCV MCH MCHC RDW Plt Count MPV Neut % (Auto) Lymph % (Auto) Wetzel % (Auto) Eos % (Auto) Baso % (Auto) Neut # (Auto) Lymph # (Auto) Wetzel # (Auto) Eos # (Auto) Baso # (Auto) Neutrophils % (Manual) Lymphocytes % (Manual) Monocytes % (Manual) Platelet Estimate Large Platelets Giant Platelets Hypochromasia (manual) Poikilocytosis (manual Anisocytosis (manual) Puncture Site Rr pCO2 54 H pO2 128 H HCO3 40.7 H* ABG pH 7.54 H ABG Total CO2 47.9 H ABG O2 Saturation 99.4 H ABG Base Excess 20.3 H ABG Hemoglobin 14.1 ABG Carboxyhemoglobin 2.4 H POC ABG HHb (Measured) 0.6 ABG Methemoglobin 1.1 Pierre Test Pos ABG Potassium A-a O2 Difference 161.0 Respiratory Index 1.3 Hgb O2 Saturation 95.9 Glucose Lactate Vent Mode Prvc Mechanical Rate 18 FiO2 50.0 Tidal Volume 400 PEEP 5 Pressure Support CPAP Crit Value Called To Farrah giordano/rn Crit Value Called By Daniel smith/rt Crit Value Read Back Y Blood Gas Notified Time 500 Sodium Potassium Chloride Carbon Dioxide Anion Gap BUN Creatinine Est GFR ( Amer) Est GFR (Non-Af Amer) POC Glucose (mg/dL) 156 H 144 H Random Glucose Calcium Total Bilirubin AST ALT Alkaline Phosphatase Total Protein Albumin Globulin Albumin/Globulin Ratio Arterial Blood Potassium C. difficile Ag & Toxin 05/07/17 05/07/17 05/07/17 05:50 06:30 06:31 WBC 23.8 H RBC 2.87 L Hgb 8.1 L Hct 24.3 L MCV 84.6 MCH 28.2 MCHC 33.3 RDW 14.8 H Plt Count 253 MPV 8.4 Neut % (Auto) 88.2 H Lymph % (Auto) 7.5 L Wetzel % (Auto) 3.0 Eos % (Auto) 0.6 Baso % (Auto) 0.7 Neut # (Auto) 21.0 H Lymph # (Auto) 1.8 Wetzel # (Auto) 0.7 Eos # (Auto) 0.2 Baso # (Auto) 0.2 Neutrophils % (Manual) 88 H Lymphocytes % (Manual) 9 L Monocytes % (Manual) 3 Platelet Estimate Normal Large Platelets Present Giant Platelets Present Hypochromasia (manual) Slight Poikilocytosis (manual Slight Anisocytosis (manual) Slight Puncture Site pCO2 pO2 HCO3 ABG pH ABG Total CO2 ABG O2 Saturation ABG Base Excess ABG Hemoglobin ABG Carboxyhemoglobin POC ABG HHb (Measured) ABG Methemoglobin Pierre Test ABG Potassium A-a O2 Difference Respiratory Index Hgb O2 Saturation Glucose Lactate Vent Mode Mechanical Rate FiO2 Tidal Volume PEEP Pressure Support CPAP Crit Value Called To Crit Value Called By Crit Value Read Back Blood Gas Notified Time Sodium 145 Potassium 3.4 L Chloride 97 L Carbon Dioxide 44 H* Anion Gap 7 L BUN 52 H Creatinine 0.8 Est GFR ( Amer) > 60 Est GFR (Non-Af Amer) > 60 POC Glucose (mg/dL) 133 H Random Glucose 119 H Calcium 7.6 L Total Bilirubin 0.3 AST 28 ALT 53 H Alkaline Phosphatase 133 H Total Protein 5.0 L Albumin 2.5 L Globulin 2.6 Albumin/Globulin Ratio 1.0 Arterial Blood Potassium C. difficile Ag & Toxin 05/07/17 05/07/17 05/07/17 11:47 12:25 14:25 WBC RBC Hgb Hct MCV MCH MCHC RDW Plt Count MPV Neut % (Auto) Lymph % (Auto) Wetzel % (Auto) Eos % (Auto) Baso % (Auto) Neut # (Auto) Lymph # (Auto) Wetzel # (Auto) Eos # (Auto) Baso # (Auto) Neutrophils % (Manual) Lymphocytes % (Manual) Monocytes % (Manual) Platelet Estimate Large Platelets Giant Platelets Hypochromasia (manual) Poikilocytosis (manual Anisocytosis (manual) Puncture Site Lf pCO2 57 H pO2 73 L HCO3 42.4 H* ABG pH 7.54 H ABG Total CO2 50.4 H ABG O2 Saturation 97.3 ABG Base Excess 22.4 H ABG Hemoglobin ABG Carboxyhemoglobin POC ABG HHb (Measured) ABG Methemoglobin Pierre Test Na ABG Potassium 3.3 L A-a O2 Difference 141.0 Respiratory Index 1.9 Hgb O2 Saturation Glucose 134 H Lactate 2.4 H Vent Mode Mechanical Rate FiO2 40.0 Tidal Volume PEEP Pressure Support 12 CPAP 5 Crit Value Called To Dr ortiz Crit Value Called By Srinivasa george crt Crit Value Read Back Y Blood Gas Notified Time 1445 Sodium 149.0 H Potassium Chloride 104.0 Carbon Dioxide Anion Gap BUN Creatinine Est GFR ( Amer) Est GFR (Non-Af Amer) POC Glucose (mg/dL) 121 H Random Glucose Calcium Total Bilirubin AST ALT Alkaline Phosphatase Total Protein Albumin Globulin Albumin/Globulin Ratio Arterial Blood Potassium 3.3 L C. difficile Ag & Toxin Negative 05/07/17 17:22 WBC RBC Hgb Hct MCV MCH MCHC RDW Plt Count MPV Neut % (Auto) Lymph % (Auto) Wetzel % (Auto) Eos % (Auto) Baso % (Auto) Neut # (Auto) Lymph # (Auto) Wetzel # (Auto) Eos # (Auto) Baso # (Auto) Neutrophils % (Manual) Lymphocytes % (Manual) Monocytes % (Manual) Platelet Estimate Large Platelets Giant Platelets Hypochromasia (manual) Poikilocytosis (manual Anisocytosis (manual) Puncture Site pCO2 pO2 HCO3 ABG pH ABG Total CO2 ABG O2 Saturation ABG Base Excess ABG Hemoglobin ABG Carboxyhemoglobin POC ABG HHb (Measured) ABG Methemoglobin Pierre Test ABG Potassium A-a O2 Difference Respiratory Index Hgb O2 Saturation Glucose Lactate Vent Mode Mechanical Rate FiO2 Tidal Volume PEEP Pressure Support CPAP Crit Value Called To Crit Value Called By Crit Value Read Back Blood Gas Notified Time Sodium Potassium Chloride Carbon Dioxide Anion Gap BUN Creatinine Est GFR ( Amer) Est GFR (Non-Af Amer) POC Glucose (mg/dL) 116 H Random Glucose Calcium Total Bilirubin AST ALT Alkaline Phosphatase Total Protein Albumin Globulin Albumin/Globulin Ratio Arterial Blood Potassium C. difficile Ag & Toxin Assessment/Plan (1) ARDS (adult respiratory distress syndrome) Current Visit: Yes Status: Acute (2) Acute respiratory distress syndrome (ARDS) Current Visit: Yes Status: Acute Attending/Attestation - Attestation I have personally seen and examined this patient.: Yes I have fully participated in the care of the patient.: Yes I have reviewed all pertinent clinical information: Yes Notes (Text): 05/07/17 18:20 Patient is currently on CPAP trial. Comfortable. Thick secretions but many noted. The blood gas analysis on CPAP showing evidence of alkalosis. Patient can be extubated, but because of their alkalosis will hold up the extubation until tomorrow. On Diamox now
--- NOTE | 2017-05-07 12:02 | CP.PCM.PN ---
Subjective - Date & Time of Evaluation Date of Evaluation: 05/07/17 Time of Evaluation: 08:00 - Subjective Subjective: FOR CPAP TRIAL IV RX RENEWED Objective - Vital Signs/Intake and Output Vital Signs (last 24 hours): Temp Pulse Resp BP Pulse Ox 99 F 78 18 158/59 H 97 05/07/17 08:00 05/07/17 10:44 05/07/17 10:44 05/07/17 10:44 05/07/17 10:44 Intake and Output: 05/07/17 05/07/17 06:59 18:59 Intake Total 918 395 Output Total 2150 440 Balance -1232 -45 - Medications Medications: Current Medications Acetazolamide (Diamox 250 Mg Tab) 250 mg PO BID [facility] Stop: 05/12/17 11:31 Albuterol/Ipratropium (Duoneb 3 Mg/0.5 Mg (3 Ml) Ud) 3 ml INH RQ6 [facility] Last Admin: 05/07/17 08:15 Dose: 3 ml Amlodipine Besylate (Norvasc) 10 mg PO DAILY [facility] Last Admin: 05/07/17 09:38 Dose: 10 mg Enoxaparin Sodium (Lovenox) 40 mg SC DAILY [facility] Last Admin: 05/07/17 09:54 Dose: 40 mg Furosemide (Lasix) 80 mg IVP Q12 [facility] Last Admin: 05/07/17 09:39 Dose: 80 mg Hydromorphone HCl (Dilaudid) 0.5 mg IVP Q6H PRN PRN Reason: pain Last Admin: 05/06/17 22:00 Dose: 0.5 mg Linezolid (Zyvox 600mg/300ml D5w) 600 mg in 300 mls @ 300 mls/hr IVPB Q12H [facility] Last Admin: 05/07/17 00:02 Dose: 300 mls/hr Cefepime HCl (Maxipime Iv 1 Gm Premix) 1 gm in 50 mls @ 100 mls/hr IVPB Q12H [facility] Last Admin: 05/07/17 11:09 Dose: 100 mls/hr Propofol (Diprivan) 1,000 mg in 100 mls @ 1.985 mls/hr IV .Q24H PRN; Protocol; 5 MCG/KG/MIN PRN Reason: TITRATE PER MD ORDER Last Admin: 05/07/17 06:26 Dose: 10 mcg/kg/min, 3.971 mls/hr Fluconazole (Diflucan Iv 200 Mg/100 Ml Ns) 100 mls @ 100 mls/hr IVPB Q24H [facility] Last Admin: 05/06/17 17:59 Dose: 100 mls/hr Potassium Chloride (Potassium Chloride 20 Meq/100 Ml) 20 meq in 100 mls @ 50 mls/hr IVPB Q2H [facility] Stop: 05/07/17 13:59 Last Admin: 05/07/17 09:37 Dose: 50 mls/hr Insulin Aspart (Novolog) 0 unit SC Q6 [facility] PRN Reason: Protocol Last Admin: 05/07/17 06:28 Dose: Not Given Lorazepam (Ativan) 2 mg IVP Q4H PRN PRN Reason: Anxiety Last Admin: 05/07/17 01:40 Dose: 2 mg Losartan Potassium (Cozaar) 25 mg PO DAILY [facility] Methylprednisolone (Solu-Medrol) 40 mg IVP DAILY [facility] Last Admin: 05/07/17 09:38 Dose: 40 mg Metoprolol Tartrate (Lopressor) 25 mg PO BID [facility] Last Admin: 05/07/17 09:38 Dose: 25 mg Nicotine (Nicoderm Cq) 1 patch TD DAILY [facility] Last Admin: 05/07/17 09:54 Dose: 1 patch Pantoprazole Sodium (Protonix Susp) 40 mg GT DAILY [facility] Last Admin: 05/07/17 09:38 Dose: 40 mg Vitamin A (Vitamin A & D Oint Ud Foilpak) 1 ea TOP Q4 PRN PRN Reason: dry lips Last Admin: 05/06/17 21:53 Dose: 1 ea - Labs Labs: 05/07/17 06:30 05/07/17 06:31 PT 11.8 SECONDS (9.7-12.2) 05/06/17 09:09 INR 1.0 05/06/17 09:09 APTT 24 SECONDS (21-34) 05/06/17 09:09 - Constitutional Appears: Non-toxic, Chronically Ill - Head Exam Head Exam: NORMOCEPHALIC - Eye Exam Eye Exam: PERRL - ENT Exam ENT Exam: Mucous Membranes Dry - Neck Exam Neck Exam: absent: Lymphadenopathy - Respiratory Exam Respiratory Exam: Decreased Breath Sounds - Cardiovascular Exam Cardiovascular Exam: REGULAR RHYTHM - GI/Abdominal Exam GI & Abdominal Exam: Distended Assessment and Plan (1) Pelvic mass in female Status: Acute (2) Abdominal pain Status: Acute (3) Leukocytosis Status: Acute
--- NOTE | 2017-05-07 13:26 | PN ---
DATE: LOCATION: ICU 7. SUBJECTIVE: This is 66-year-old female seen and examined in rounds, without significant clinical changes. The entire chart is reviewed including, but not limited to, the most recent lab and radiology study results, current and previous medication list, current and previous medical events. The patient is still on Diprivan drip on and off and the most recent chest x-ray done today showed moderate bilateral pleural effusion with pneumonia in both lungs and cardiomegaly. Today's lab showed leukocytosis of 23.8, hemoglobin dropped to 8.1, hematocrit 24.3 with normal platelet count and abnormal ABGs, potassium 3.4, CO2 content 44, BUN 52, but normal creatinine, blood glucose level 133, calcium 7.6, ALT 53, alkaline phosphatase 133, total protein 5.0, albumin 2.5. The patient is still sedated, but no reported active bleeding and NG tube is in place for feeding purposes. PHYSICAL EXAMINATION: GENERAL: A 66-year-old female, sedated with low grade temperature of 99, heart rate 92, blood pressure 148/64. HEENT: Showed pale and dry oral mucous membrane. Nonicteric sclerae. LUNGS: Few scattered crepitation, decreased air entry at bases. HEART: Positive S1 and S2 is increased rate. ABDOMEN: Soft with mild distention, mild generalized tenderness. No mass or organomegaly. No rebound tenderness or guarding. Abdominal dressing is in place. EXTREMITIES: With lower extremity edematous changes. No clubbing or cyanosis. NEUROLOGIC: No reported new neurological deficits, sensory or motor. IMPRESSION: 1. Acute respiratory distress syndrome. 2. Pneumonia, pleural effusion, respiratory failure on intubated to vent. 3. Electrolyte imbalance. 4. Hypoalbuminemia, malnutrition. 5. Acute renal insufficiency, dehydrated, gradually improving. 6. Known history of hyperlipidemia, hyperglycemia. 7. The patient is candidate for percutaneous endoscopic gastrostomy insertion, awaiting primary MD and family. SUGGESTIONS: 1. Continue current management. 2. Peripheral hyperalimentation. 3. Guaiac stool daily x 3. 4. Further recommendation to follow. Shantel Lakhani MD [facility] # [id number]
[2017-05-07 14:42] LABS: ARTERIAL BLOOD GAS HCO3 42.4 mmol/L (21-28); ARTERIAL BLOOD GAS O2 SAT 97.3 % (95-98); ARTERIAL BLOOD GAS PCO2 57 mm/Hg (35-45); ARTERIAL BLOOD GAS PH 7.54 (7.35-7.45); ARTERIAL BLOOD GAS PO2 73 mm/Hg (80-100); ARTERIAL BLOOD GAS TCO2 50.4 mmol/L (22-28)
--- NOTE | 2017-05-07 14:44 | CP.PCM.PN ---
Subjective - Date & Time of Evaluation Date of Evaluation: 05/07/17 Time of Evaluation: 14:40 - Subjective Subjective: Follow up Nephrology Consultation: Assessment: critical Pulmonary edema ? ARDS with acute respi failure metabolic alkalosis due to lasix Nephrotic syndrome with 3.5 gram proteinuria and microscopic hematuria. differential include (MPGN due to Hep C, FSGS due to solitary kidney) Hypokalemia, combined respi and metabolic acidosis Acute Kidney Injury (N17.9) ? etiology. possible ATN:resolved Hyponatremia likely multi-factorial: thiazide diuretics, hypotonic fluids: improved Anemia, s/p left nephrectomy for stones active smoker HTN, hyperlipidemia, adnexal mass (cystadenofibroma) ascites, hypoalbuminemia Cecal thickening on CT scan heterogenous nodular liver with ascites and hx of Hep C ? cirrhosis Plan No acute need for renal replacement therapy at this time. UOP and s creat better Hypertension control with meds as ordered. agree with current BP meds. started on cozaar. uptitrate dose as needed Monitor Input/Output, daily weights and renal function with basic metabolic panel continue with lasix 80 mg IV BID. also started diamox due to elevated serum bicarb supplement electrolytes as needed She is not a candidate for kidney biopsy at present due to solitary kidney and acute illness anemia management as per primary team Dose meds/antibiotics for improved GFR. Avoid nephrotoxins/NSAIDs Glycemic control Further work up/management as per primary team Thanks for allowing me to participate in care of your patient. Will follow patient with you. Please call if any Qs. d/w team and daughter Scott Andrade Office: [phone] reason for consult: TONA and hyponatremia HPI: Pt is a 66 F with hx of hypertension (years), smoker presented with complaints of abdomen pain and leg swelling, found to have ascites and left adnexal cystic mass, renal consult for TONA and hyponatremia. pt also reports hx of left nephrectomy for kidney stones she has een on HCTZ and also was receiving hypotonic fluids as D5/0.45% saline Denies OTC/herbal meds or NSAIDs No recent iodinated contrast exposure. No obvious episodes of low BP. ROS: unable pt intubated went to OR 04/30/17 for expl lap s/p left oopherectomy Physical Examination: General Appearance: intubated Vitals reviewed and noted as below Head; Atraumatic, normocephalic ENT: intubated Neck; supple no lymphadenopathy, no thyromegaly or bruit Lungs: improved respiratory rate/effort. Breath sounds bilateral clear anteriorly Heart: normal rate. s1s2 normal. No rub or gallop. Extremities: 1+ edema. No varicose veins Neurological: Patient is sedated. Skin: Warm and dry. Normal turgor. No rash. Palpitation: Normal elasticity for age Abdomen: Abdomen is soft. Bowel sounds +. There is no abdominal tenderness, no guarding/rigidity no organomegaly. Psych: unable MSK: no joint tenderness or swelling. Digits and nails normal, no deformity : kidney or bladder not palpable Labs/imaging reviewed. Past medical history, past surgical history, family history, social history, allergy reviewed and noted as below Family hx: no hx of CKD. Rest non-contributory UA: 2+ protein and 2+ blood CT: left adnexal cyst. Objective - Vital Signs/Intake and Output Vital Signs (last 24 hours): Temp Pulse Resp BP Pulse Ox 97.7 F 84 19 166/60 H 97 05/07/17 12:00 05/07/17 12:44 05/07/17 12:44 05/07/17 12:44 05/07/17 12:44 Intake and Output: 05/07/17 05/07/17 06:59 18:59 Intake Total 918 945 Output Total 2150 1940 Balance -1232 -995 - Medications Medications: Current Medications Acetazolamide (Diamox 250 Mg Tab) 250 mg PO BID [facility] Stop: 05/12/17 11:31 Last Admin: 05/07/17 12:00 Dose: 250 mg Albuterol/Ipratropium (Duoneb 3 Mg/0.5 Mg (3 Ml) Ud) 3 ml INH RQ6 [facility] Last Admin: 05/07/17 08:15 Dose: 3 ml Amlodipine Besylate (Norvasc) 10 mg PO DAILY [facility] Last Admin: 05/07/17 09:38 Dose: 10 mg Enoxaparin Sodium (Lovenox) 40 mg SC DAILY [facility] Last Admin: 05/07/17 09:54 Dose: 40 mg Furosemide (Lasix) 80 mg IVP Q12 [facility] Last Admin: 05/07/17 09:39 Dose: 80 mg Hydromorphone HCl (Dilaudid) 0.5 mg IVP Q6H PRN PRN Reason: pain Last Admin: 05/06/17 22:00 Dose: 0.5 mg Linezolid (Zyvox 600mg/300ml D5w) 600 mg in 300 mls @ 300 mls/hr IVPB Q12H [facility] Last Admin: 05/07/17 12:02 Dose: 300 mls/hr Cefepime HCl (Maxipime Iv 1 Gm Premix) 1 gm in 50 mls @ 100 mls/hr IVPB Q12H [facility] Last Admin: 05/07/17 11:09 Dose: 100 mls/hr Propofol (Diprivan) 1,000 mg in 100 mls @ 1.985 mls/hr IV .Q24H PRN; Protocol; 5 MCG/KG/MIN PRN Reason: TITRATE PER MD ORDER Last Admin: 05/07/17 06:26 Dose: 10 mcg/kg/min, 3.971 mls/hr Fluconazole (Diflucan Iv 200 Mg/100 Ml Ns) 100 mls @ 100 mls/hr IVPB Q24H [facility] Last Admin: 05/06/17 17:59 Dose: 100 mls/hr Insulin Aspart (Novolog) 0 unit SC Q6 [facility] PRN Reason: Protocol Last Admin: 05/07/17 12:43 Dose: Not Given Lorazepam (Ativan) 2 mg IVP Q4H PRN PRN Reason: Anxiety Last Admin: 05/07/17 01:40 Dose: 2 mg Losartan Potassium (Cozaar) 25 mg PO DAILY [facility] Last Admin: 05/07/17 11:59 Dose: 25 mg Methylprednisolone (Solu-Medrol) 40 mg IVP DAILY [facility] Last Admin: 05/07/17 09:38 Dose: 40 mg Metoprolol Tartrate (Lopressor) 25 mg PO BID [facility] Last Admin: 05/07/17 09:38 Dose: 25 mg Nicotine (Nicoderm Cq) 1 patch TD DAILY [facility] Last Admin: 05/07/17 09:54 Dose: 1 patch Pantoprazole Sodium (Protonix Susp) 40 mg GT DAILY [facility] Last Admin: 05/07/17 09:38 Dose: 40 mg Vitamin A (Vitamin A & D Oint Ud Foilpak) 1 ea TOP Q4 PRN PRN Reason: dry lips Last Admin: 05/06/17 21:53 Dose: 1 ea - Labs Labs: 05/07/17 06:30 05/07/17 06:31 PT 11.8 SECONDS (9.7-12.2) 05/06/17 09:09 INR 1.0 05/06/17 09:09 APTT 24 SECONDS (21-34) 05/06/17 09:09
--- NOTE | 2017-05-07 16:39 | PN ---
DATE: 05/06/2017 SUBJECTIVE: The patient is on ventilator, PRVC mode. Gradual weaning. General condition improving. Pneumonia resolving. ASSESSMENT: The patient for sepsis, respiratory failure, status post ____. At this point, the patient to continue bronchodilators, ventilator support. Avel Langley MD
--- NOTE | 2017-05-07 17:04 | CP.PCM.PN ---
Subjective - Date & Time of Evaluation Date of Evaluation: 05/07/17 Time of Evaluation: 06:10 - Subjective Subjective: General Surgery- Dr. Hollingsworth Patient seen and examined at bedside this AM. Currently intubated on PRVC. On propfol. Unable to obtain ROS as pt is intubated Objective - Vital Signs/Intake and Output Vital Signs (last 24 hours): Temp Pulse Resp BP Pulse Ox 97.7 F 83 17 159/70 H 96 05/07/17 12:00 05/07/17 14:44 05/07/17 14:44 05/07/17 14:44 05/07/17 14:44 Intake and Output: 05/07/17 05/07/17 06:59 18:59 Intake Total 918 945 Output Total 2150 2340 Balance -1232 -1395 - Medications Medications: Current Medications Acetazolamide (Diamox 250 Mg Tab) 250 mg PO BID [facility] Stop: 05/12/17 11:31 Last Admin: 05/07/17 12:00 Dose: 250 mg Albuterol/Ipratropium (Duoneb 3 Mg/0.5 Mg (3 Ml) Ud) 3 ml INH RQ6 [facility] Last Admin: 05/07/17 08:15 Dose: 3 ml Amlodipine Besylate (Norvasc) 10 mg PO DAILY [facility] Last Admin: 05/07/17 09:38 Dose: 10 mg Enoxaparin Sodium (Lovenox) 40 mg SC DAILY [facility] Last Admin: 05/07/17 09:54 Dose: 40 mg Furosemide (Lasix) 80 mg IVP Q12 [facility] Last Admin: 05/07/17 09:39 Dose: 80 mg Hydromorphone HCl (Dilaudid) 0.5 mg IVP Q6H PRN PRN Reason: pain Last Admin: 05/06/17 22:00 Dose: 0.5 mg Linezolid (Zyvox 600mg/300ml D5w) 600 mg in 300 mls @ 300 mls/hr IVPB Q12H [facility] Last Admin: 05/07/17 12:02 Dose: 300 mls/hr Propofol (Diprivan) 1,000 mg in 100 mls @ 1.985 mls/hr IV .Q24H PRN; Protocol; 5 MCG/KG/MIN PRN Reason: TITRATE PER MD ORDER Last Admin: 05/07/17 06:26 Dose: 10 mcg/kg/min, 3.971 mls/hr Fluconazole (Diflucan Iv 200 Mg/100 Ml Ns) 100 mls @ 100 mls/hr IVPB Q24H [facility] Last Admin: 05/06/17 17:59 Dose: 100 mls/hr Cefepime HCl 1 gm/ Sodium (Chloride) 100 mls @ 100 mls/hr IVPB Q12H [facility] Insulin Aspart (Novolog) 0 unit SC Q6 [facility] PRN Reason: Protocol Last Admin: 05/07/17 12:43 Dose: Not Given Lorazepam (Ativan) 2 mg IVP Q4H PRN PRN Reason: Anxiety Last Admin: 05/07/17 01:40 Dose: 2 mg Losartan Potassium (Cozaar) 25 mg PO DAILY [facility] Last Admin: 05/07/17 11:59 Dose: 25 mg Methylprednisolone (Solu-Medrol) 40 mg IVP DAILY [facility] Last Admin: 05/07/17 09:38 Dose: 40 mg Metoprolol Tartrate (Lopressor) 25 mg PO BID [facility] Last Admin: 05/07/17 09:38 Dose: 25 mg Nicotine (Nicoderm Cq) 1 patch TD DAILY [facility] Last Admin: 05/07/17 09:54 Dose: 1 patch Pantoprazole Sodium (Protonix Susp) 40 mg GT DAILY [facility] Last Admin: 05/07/17 09:38 Dose: 40 mg Potassium Chloride (K-Dur 20 Meq Er Tab) 20 meq PO BID [facility] Stop: 05/09/17 18:01 Vitamin A (Vitamin A & D Oint Ud Foilpak) 1 ea TOP Q4 PRN PRN Reason: dry lips Last Admin: 05/06/17 21:53 Dose: 1 ea - Labs Labs: 05/07/17 06:30 05/07/17 06:31 PT 11.8 SECONDS (9.7-12.2) 05/06/17 09:09 INR 1.0 05/06/17 09:09 APTT 24 SECONDS (21-34) 05/06/17 09:09 - Constitutional Appears: Non-toxic, No Acute Distress - Head Exam Head Exam: ATRAUMATIC - Eye Exam Eye Exam: EOMI - Respiratory Exam Additional comments: On PRVC, occasionaly breath over vent - Cardiovascular Exam Cardiovascular Exam: +S1, +S2. absent: Bradycardia, Tachycardia - GI/Abdominal Exam GI & Abdominal Exam: Soft. absent: Tenderness - Extremities Exam Extremities Exam: Normal Inspection. absent: Calf Tenderness - Neurological Exam Neurological Exam: Awake Assessment and Plan - Assessment and Plan (Free Text) Assessment: 66F s/p left ovarain salpingo-oopherectomy, post op complicated by aspiration pneumonitis w/ subsequent ARDS Plan: CPAP trials weaning protocol will follow for now Pulm toilet keep O2 sats > 92% medical management per primary team plan for possible trach this week if unable to wean off vent d/w Dr. Hollingsworth surgical attending [facility] PGY1
--- NOTE | 2017-05-07 18:03 | CP.PCM.PN ---
Subjective - Date & Time of Evaluation Date of Evaluation: 05/07/17 Time of Evaluation: 18:01 - Subjective Subjective: pt awake comfortable on c pap trial still has et tube vss lung cleare hts1s2 abd soft l l no oeadeama wbc hi Objective - Vital Signs/Intake and Output Vital Signs (last 24 hours): Temp Pulse Resp BP Pulse Ox 97.7 F 83 17 159/70 H 96 05/07/17 12:00 05/07/17 14:44 05/07/17 14:44 05/07/17 14:44 05/07/17 14:44 Intake and Output: 05/07/17 05/07/17 06:59 18:59 Intake Total 918 945 Output Total 2150 2340 Balance -1232 -1395 - Medications Medications: Current Medications Acetazolamide (Diamox 250 Mg Tab) 250 mg PO BID [facility] Stop: 05/12/17 11:31 Last Admin: 05/07/17 12:00 Dose: 250 mg Albuterol/Ipratropium (Duoneb 3 Mg/0.5 Mg (3 Ml) Ud) 3 ml INH RQ6 [facility] Last Admin: 05/07/17 08:15 Dose: 3 ml Amlodipine Besylate (Norvasc) 10 mg PO DAILY [facility] Last Admin: 05/07/17 09:38 Dose: 10 mg Enoxaparin Sodium (Lovenox) 40 mg SC DAILY [facility] Last Admin: 05/07/17 09:54 Dose: 40 mg Furosemide (Lasix) 80 mg IVP Q12 [facility] Last Admin: 05/07/17 09:39 Dose: 80 mg Hydromorphone HCl (Dilaudid) 0.5 mg IVP Q6H PRN PRN Reason: pain Last Admin: 05/06/17 22:00 Dose: 0.5 mg Linezolid (Zyvox 600mg/300ml D5w) 600 mg in 300 mls @ 300 mls/hr IVPB Q12H [facility] Last Admin: 05/07/17 12:02 Dose: 300 mls/hr Propofol (Diprivan) 1,000 mg in 100 mls @ 1.985 mls/hr IV .Q24H PRN; Protocol; 5 MCG/KG/MIN PRN Reason: TITRATE PER MD ORDER Last Admin: 05/07/17 06:26 Dose: 10 mcg/kg/min, 3.971 mls/hr Fluconazole (Diflucan Iv 200 Mg/100 Ml Ns) 100 mls @ 100 mls/hr IVPB Q24H [facility] Last Admin: 05/06/17 17:59 Dose: 100 mls/hr Cefepime HCl 1 gm/ Sodium (Chloride) 100 mls @ 100 mls/hr IVPB Q12H [facility] Insulin Aspart (Novolog) 0 unit SC Q6 [facility] PRN Reason: Protocol Last Admin: 05/07/17 12:43 Dose: Not Given Lorazepam (Ativan) 2 mg IVP Q4H PRN PRN Reason: Anxiety Last Admin: 05/07/17 01:40 Dose: 2 mg Losartan Potassium (Cozaar) 25 mg PO DAILY [facility] Last Admin: 05/07/17 11:59 Dose: 25 mg Methylprednisolone (Solu-Medrol) 40 mg IVP DAILY [facility] Last Admin: 05/07/17 09:38 Dose: 40 mg Metoprolol Tartrate (Lopressor) 25 mg PO BID [facility] Last Admin: 05/07/17 09:38 Dose: 25 mg Nicotine (Nicoderm Cq) 1 patch TD DAILY [facility] Last Admin: 05/07/17 09:54 Dose: 1 patch Pantoprazole Sodium (Protonix Susp) 40 mg GT DAILY [facility] Last Admin: 05/07/17 09:38 Dose: 40 mg Potassium Chloride (K-Dur 20 Meq Er Tab) 20 meq PO BID [facility] Stop: 05/09/17 18:01 Vitamin A (Vitamin A & D Oint Ud Foilpak) 1 ea TOP Q4 PRN PRN Reason: dry lips Last Admin: 05/06/17 21:53 Dose: 1 ea - Labs Labs: 05/07/17 06:30 05/07/17 06:31 PT 11.8 SECONDS (9.7-12.2) 05/06/17 09:09 INR 1.0 05/06/17 09:09 APTT 24 SECONDS (21-34) 05/06/17 09:09 - Constitutional Appears: Non-toxic - Head Exam Head Exam: ATRAUMATIC - Eye Exam Eye Exam: Normal appearance Pupil Exam: NORMAL ACCOMODATION - ENT Exam ENT Exam: Mucous Membranes Moist - Neck Exam Neck Exam: Full ROM - Respiratory Exam Respiratory Exam: Decreased Breath Sounds - Cardiovascular Exam Cardiovascular Exam: REGULAR RHYTHM - GI/Abdominal Exam GI & Abdominal Exam: Normal Bowel Sounds - Extremities Exam Extremities Exam: Normal Inspection - Back Exam Back Exam: NORMAL INSPECTION - Neurological Exam Neurological Exam: Awake - Psychiatric Exam Psychiatric exam: Normal Affect - Skin Skin Exam: Pallor Assessment and Plan - Assessment and Plan (Free Text) Assessment: s/p abd surgery s/p resp failiur sepses peloleg tumer Plan: cont icu orders
[2017-05-07] MEDS: Potassium Chloride 20 mEq ER Tab PO SCH (18:09)
[2017-05-07] MEDS: Fluconazole IV 200mg/100 ml NS 100 ML IVPB SCH (18:10)
[2017-05-07] MEDS: Cefepime 1 GM in Sodium Chloride 0.9% 100 ML IVPB SCH (23:00)
[2017-05-08] MEDS: (Novolog) Insulin Aspart, Recombinant 100 u/ml 10 ml vial SC SCH ×4 (00:17→18:24)
[2017-05-08] MEDS: Albuterol-Ipratrop 3 mg / 0.5 (3 ml) UD INH SCH ×4 (02:58→19:36)
[2017-05-08 05:43] LABS: ABG ALLEN TEST POS; ARTERIAL BLOOD GAS O2 SAT 96.8 % (95-98); ARTERIAL BLOOD GAS PCO2 47 mm/Hg (35-45); ARTERIAL BLOOD GAS PH 7.47 (7.35-7.45); ARTERIAL BLOOD GAS PO2 73 mm/Hg (80-100); ARTERIAL BLOOD GAS TCO2 35.6 mmol/L (22-28)
[2017-05-08 06:34] LABS: BASO # 0.1 K/uL (0.0-0.2); BASO % 0.4 % (0.0-2.0); EOS # 0.2 K/uL (0.0-0.7); EOS % 1.1 % (0.0-4.0); HEMOGLOBIN 8.4 g/dL (11.0-16.0); LYMPH # 1.5 K/uL (1.0-4.3); LYMPH % 7.1 % (20.0-40.0); MEAN CELL VOLUME 86.1 fL (81.0-99.0); MEAN CORPUSCULAR HEMOGLOBIN 27.8 pg (27.0-31.0); MEAN CORPUSCULAR HGB CONC 32.3 g/dL (33.0-37.0); MEAN PLATELET VOLUME 8.9 fL (7.2-11.7); MONO # 0.6 K/uL (0.0-0.8); NEUT # 18.5 K/uL (1.8-7.0); NEUT % 88.4 % (50.0-75.0); PLATELET COUNT 201 K/uL (130-400); RBC 3.03 Mil/uL (3.80-5.20)
[2017-05-08 06:52] LABS: ALBUMIN 2.7 g/dL (3.5-5.0); ALT/SGPT 51 U/L (9-52); AST/SGOT 32 U/L (14-36); BLOOD UREA NITROGEN 32 mg/dL (7-17); GFR AFRICAN-AMERICAN > 60; GFR NON-AFRICAN AMERICAN > 60
[2017-05-08] MEDS: Potassium Chloride 20 mEq/15 ml LIQ UD PO SCH ×2 (08:14→09:20)
[2017-05-08 08:19] LABS: EOSINOPHIL 1 % (0-4); LYMPHOCYTE 7 % (20-40); MONOCYTE 2 % (0-10); NEUTROPHIL 90 % (50-75); TOTAL CELLS COUNTED 100
[2017-05-08 08:20] LABS: ANISOCYTOSIS SLIGHT; HYPOCHROMIC SLIGHT; MICROCYTOSIS SLIGHT; PLATELET ESTIMATE NORMAL (NORMAL); POIKILOCYTOSIS SLIGHT
[2017-05-08 08:22] LABS: OVALOCYTES SLIGHT; TARGET CELLS SLIGHT
[2017-05-08 08:23] LABS: TEARDROP CELLS SLIGHT
--- NOTE | 2017-05-08 08:52 | RAD ---
HISTORY: Shortness of breath COMPARISON: 05/07/2017. FINDINGS: The endotracheal tube terminates 2 cm proximal to the karlos. The right IJV line terminates in the SVC. The nasogastric tube terminates in the stomach. LUNGS: There is interval improved aeration in the lungs with persistent consolidation in the right lower lobe and left lung. Again seen is pulmonary venous congestion. PLEURA: Persistent small pleural effusions, no pneumothorax apparent. CARDIOVASCULAR: Normal. OSSEOUS STRUCTURES: No significant abnormalities. VISUALIZED UPPER ABDOMEN: Normal. OTHER FINDINGS: None. IMPRESSION: Interval improved aeration in the lungs with persistent consolidation in the right lower lobe and left lung. Persistent small pleural effusions. Stable position of support line and tubes.
[2017-05-08] MEDS: MethylPREDNISolone 40 mg Vial IVP SCH (09:19)
[2017-05-08] MEDS: Pantoprazole 40 mg Susp UD GT SCH (09:20)
[2017-05-08] MEDS: Potassium Chloride 20 mEq ER Tab PO SCH ×2 (09:20→17:41)
[2017-05-08] MEDS: Enoxaparin 40 mg Syringe SC SCH (09:21)
--- NOTE | 2017-05-08 09:57 | CP.PCM.PN ---
Subjective - Date & Time of Evaluation Date of Evaluation: 05/08/17 Time of Evaluation: 07:20 - Subjective Subjective: General surgery progress note for Dr. Nery Pulliam, PGY-1 Pt S & E at bedside. Pt intubated, on CPAP x 24H, alert, able to convey simple answers. Indicating she is having flatus and no abdominal pain. Objective - Vital Signs/Intake and Output Vital Signs (last 24 hours): Temp Pulse Resp BP Pulse Ox 98.7 F 81 17 171/51 H 98 05/08/17 08:00 05/08/17 09:00 05/08/17 09:00 05/08/17 09:20 05/08/17 09:00 Intake and Output: 05/08/17 05/08/17 06:59 18:59 Intake Total 470 50 Output Total 1225 500 Balance -755 -450 - Medications Medications: Current Medications Acetazolamide (Diamox 250 Mg Tab) 250 mg PO BID [facility] Stop: 05/12/17 11:31 Last Admin: 05/08/17 09:21 Dose: 250 mg Albuterol/Ipratropium (Duoneb 3 Mg/0.5 Mg (3 Ml) Ud) 3 ml INH RQ6 [facility] Last Admin: 05/08/17 08:51 Dose: 3 ml Amlodipine Besylate (Norvasc) 10 mg PO DAILY [facility] Last Admin: 05/08/17 09:20 Dose: 10 mg Enoxaparin Sodium (Lovenox) 40 mg SC DAILY [facility] Last Admin: 05/08/17 09:21 Dose: 40 mg Furosemide (Lasix) 40 mg IVP Q12 [facility] Last Admin: 05/08/17 09:19 Dose: 40 mg Hydralazine HCl (Apresoline) 25 mg PO Q4 PRN PRN Reason: Other Hydromorphone HCl (Dilaudid) 0.5 mg IVP Q6H PRN PRN Reason: pain Last Admin: 05/06/17 22:00 Dose: 0.5 mg Linezolid (Zyvox 600mg/300ml D5w) 600 mg in 300 mls @ 300 mls/hr IVPB Q12H [facility] Last Admin: 05/07/17 23:55 Dose: 300 mls/hr Propofol (Diprivan) 1,000 mg in 100 mls @ 1.985 mls/hr IV .Q24H PRN; Protocol; 5 MCG/KG/MIN PRN Reason: TITRATE PER MD ORDER Last Titration: 05/07/17 11:00 Dose: 0 mcg/kg/min, 0 mls/hr Fluconazole (Diflucan Iv 200 Mg/100 Ml Ns) 100 mls @ 100 mls/hr IVPB Q24H [facility] Last Admin: 05/07/17 18:10 Dose: 100 mls/hr Cefepime HCl 1 gm/ Sodium (Chloride) 100 mls @ 100 mls/hr IVPB Q12H [facility] Last Admin: 05/07/17 23:00 Dose: 100 mls/hr Insulin Aspart (Novolog) 0 unit SC Q6 [facility] PRN Reason: Protocol Last Admin: 05/08/17 05:26 Dose: Not Given Lorazepam (Ativan) 2 mg IVP Q4H PRN PRN Reason: Anxiety Last Admin: 05/07/17 22:31 Dose: 2 mg Losartan Potassium (Cozaar) 50 mg PO DAILY [facility] Methylprednisolone (Solu-Medrol) 40 mg IVP DAILY [facility] Last Admin: 05/08/17 09:19 Dose: 40 mg Metoprolol Tartrate (Lopressor) 25 mg PO BID [facility] Last Admin: 05/08/17 09:20 Dose: 25 mg Nicotine (Nicoderm Cq) 1 patch TD DAILY [facility] Last Admin: 05/08/17 09:21 Dose: 1 patch Pantoprazole Sodium (Protonix Susp) 40 mg GT DAILY [facility] Last Admin: 05/08/17 09:20 Dose: 40 mg Potassium Chloride (K-Dur 20 Meq Er Tab) 20 meq PO BID [facility] Stop: 05/09/17 18:01 Last Admin: 05/08/17 09:20 Dose: 20 meq Vitamin A (Vitamin A & D Oint Ud Foilpak) 1 ea TOP Q4 PRN PRN Reason: dry lips Last Admin: 05/06/17 21:53 Dose: 1 ea - Labs Labs: 05/08/17 06:22 05/08/17 06:21 PT 11.8 SECONDS (9.7-12.2) 05/06/17 09:09 INR 1.0 05/06/17 09:09 APTT 24 SECONDS (21-34) 05/06/17 09:09 - Constitutional Appears: Non-toxic, No Acute Distress - Head Exam Head Exam: ATRAUMATIC, NORMAL INSPECTION, NORMOCEPHALIC - Eye Exam Eye Exam: EOMI, Normal appearance - ENT Exam ENT Exam: Mucous Membranes Dry (ET tube in place) - Respiratory Exam Respiratory Exam: NORMAL BREATHING PATTERN (on mech vent) - Cardiovascular Exam Cardiovascular Exam: REGULAR RHYTHM, +S1, +S2 - GI/Abdominal Exam GI & Abdominal Exam: Soft. absent: Distended, Firm, Guarding, Rigid, Tenderness - Extremities Exam Extremities Exam: Normal Inspection - Neurological Exam Neurological Exam: Alert, Awake - Psychiatric Exam Additional comments: intubated, unable to assess - Skin Skin Exam: Dry, Intact, Normal Color, Warm Assessment and Plan - Assessment and Plan (Free Text) Assessment: 66F s/p left ovarain salpingo-oopherectomy, post op complicated by aspiration pneumonitis w/ subsequent ARDS POD#8 Plan: CPAP trials weaning protocol Extubate if meets criteria will follow for now Pulm toilet keep O2 sats > 92% Further mgmt per primary team plan for possible trach this week if unable to wean off vent DW attending Shasha, PGY-1
--- NOTE | 2017-05-08 10:56 | CP.PCM.PN ---
Subjective - Date & Time of Evaluation Date of Evaluation: 05/08/17 Time of Evaluation: 10:55 - Subjective Subjective: Follow up Nephrology Consultation: Assessment: critical Pulmonary edema ? ARDS with acute respi failure metabolic alkalosis, hypernatremia due to lasix Nephrotic syndrome with 3.5 gram proteinuria and microscopic hematuria. differential include (MPGN due to Hep C, FSGS due to solitary kidney) Hypokalemia, combined respi and metabolic acidosis Acute Kidney Injury (N17.9) ? etiology. possible ATN:resolved Hyponatremia likely multi-factorial: thiazide diuretics, hypotonic fluids: improved Anemia, s/p left nephrectomy for stones active smoker HTN, hyperlipidemia, adnexal mass (cystadenofibroma) ascites, hypoalbuminemia Cecal thickening on CT scan heterogenous nodular liver with ascites and hx of Hep C ? cirrhosis Plan No acute need for renal replacement therapy at this time. UOP and s creat better Hypertension control with meds as ordered. agree with current BP meds. started on cozaar 50 mg. uptitrate dose as needed Monitor Input/Output, daily weights and renal function with basic metabolic panel continue with lasix 40 mg IV BID. also started diamox (short course) due to elevated serum bicarb and also added free water supplementation supplement electrolytes as needed She is not a candidate for kidney biopsy at present due to solitary kidney and acute illness anemia management as per primary team Dose meds/antibiotics for improved GFR. Avoid nephrotoxins/NSAIDs Glycemic control Further work up/management as per primary team Thanks for allowing me to participate in care of your patient. Will follow patient with you. Please call if any Qs. d/w team and daughter Scott Andrade Office: [phone] reason for consult: TONA and hyponatremia HPI: Pt is a 66 F with hx of hypertension (years), smoker presented with complaints of abdomen pain and leg swelling, found to have ascites and left adnexal cystic mass, renal consult for TONA and hyponatremia. pt also reports hx of left nephrectomy for kidney stones she has een on HCTZ and also was receiving hypotonic fluids as D5/0.45% saline Denies OTC/herbal meds or NSAIDs No recent iodinated contrast exposure. No obvious episodes of low BP. ROS: unable pt intubated went to OR 2/19/18 for expl lap s/p left oopherectomy Physical Examination: General Appearance: intubated Vitals reviewed and noted as below Head; Atraumatic, normocephalic ENT: intubated Neck; supple no lymphadenopathy, no thyromegaly or bruit Lungs: improved respiratory rate/effort. Breath sounds bilateral clear anteriorly Heart: normal rate. s1s2 normal. No rub or gallop. Extremities: trace edema. No varicose veins Neurological: Patient is sedated. Skin: Warm and dry. Normal turgor. No rash. Palpitation: Normal elasticity for age Abdomen: Abdomen is soft. Bowel sounds +. There is no abdominal tenderness, no guarding/rigidity no organomegaly. Psych: unable MSK: no joint tenderness or swelling. Digits and nails normal, no deformity : kidney or bladder not palpable Labs/imaging reviewed. Past medical history, past surgical history, family history, social history, allergy reviewed and noted as below Family hx: no hx of CKD. Rest non-contributory UA: 2+ protein and 2+ blood CT: left adnexal cyst. Objective - Vital Signs/Intake and Output Vital Signs (last 24 hours): Temp Pulse Resp BP Pulse Ox 98.7 F 81 17 171/51 H 98 05/08/17 08:00 05/08/17 09:00 05/08/17 09:00 05/08/17 09:20 05/08/17 09:00 Intake and Output: 05/08/17 05/08/17 06:59 18:59 Intake Total 470 50 Output Total 1225 500 Balance -755 -450 - Medications Medications: Current Medications Acetazolamide (Diamox 250 Mg Tab) 250 mg PO BID [facility] Stop: 05/12/17 11:31 Last Admin: 05/08/17 09:21 Dose: 250 mg Albuterol/Ipratropium (Duoneb 3 Mg/0.5 Mg (3 Ml) Ud) 3 ml INH RQ6 [facility] Last Admin: 05/08/17 08:51 Dose: 3 ml Amlodipine Besylate (Norvasc) 10 mg PO DAILY [facility] Last Admin: 05/08/17 09:20 Dose: 10 mg Enoxaparin Sodium (Lovenox) 40 mg SC DAILY [facility] Last Admin: 05/08/17 09:21 Dose: 40 mg Furosemide (Lasix) 40 mg IVP Q12 [facility] Last Admin: 05/08/17 09:19 Dose: 40 mg Hydralazine HCl (Apresoline) 25 mg PO Q4 PRN PRN Reason: Other Hydromorphone HCl (Dilaudid) 0.5 mg IVP Q6H PRN PRN Reason: pain Last Admin: 05/06/17 22:00 Dose: 0.5 mg Linezolid (Zyvox 600mg/300ml D5w) 600 mg in 300 mls @ 300 mls/hr IVPB Q12H [facility] Last Admin: 05/07/17 23:55 Dose: 300 mls/hr Propofol (Diprivan) 1,000 mg in 100 mls @ 1.985 mls/hr IV .Q24H PRN; Protocol; 5 MCG/KG/MIN PRN Reason: TITRATE PER MD ORDER Last Titration: 05/07/17 11:00 Dose: 0 mcg/kg/min, 0 mls/hr Fluconazole (Diflucan Iv 200 Mg/100 Ml Ns) 100 mls @ 100 mls/hr IVPB Q24H [facility] Last Admin: 05/07/17 18:10 Dose: 100 mls/hr Cefepime HCl 1 gm/ Sodium (Chloride) 100 mls @ 100 mls/hr IVPB Q12H [facility] Last Admin: 05/07/17 23:00 Dose: 100 mls/hr Insulin Aspart (Novolog) 0 unit SC Q6 [facility] PRN Reason: Protocol Last Admin: 05/08/17 05:26 Dose: Not Given Lorazepam (Ativan) 2 mg IVP Q4H PRN PRN Reason: Anxiety Last Admin: 05/07/17 22:31 Dose: 2 mg Losartan Potassium (Cozaar) 50 mg PO DAILY [facility] Methylprednisolone (Solu-Medrol) 40 mg IVP DAILY [facility] Last Admin: 05/08/17 09:19 Dose: 40 mg Metoprolol Tartrate (Lopressor) 25 mg PO BID [facility] Last Admin: 05/08/17 09:20 Dose: 25 mg Nicotine (Nicoderm Cq) 1 patch TD DAILY [facility] Last Admin: 05/08/17 09:21 Dose: 1 patch Pantoprazole Sodium (Protonix Susp) 40 mg GT DAILY [facility] Last Admin: 05/08/17 09:20 Dose: 40 mg Potassium Chloride (K-Dur 20 Meq Er Tab) 20 meq PO BID [facility] Stop: 05/09/17 18:01 Last Admin: 05/08/17 09:20 Dose: 20 meq Vitamin A (Vitamin A & D Oint Ud Foilpak) 1 ea TOP Q4 PRN PRN Reason: dry lips Last Admin: 05/06/17 21:53 Dose: 1 ea - Labs Labs: 05/08/17 06:22 05/08/17 06:21 PT 11.8 SECONDS (9.7-12.2) 05/06/17 09:09 INR 1.0 05/06/17 09:09 APTT 24 SECONDS (21-34) 05/06/17 09:09
--- NOTE | 2017-05-08 11:15 | CP.PCM.PN ---
Subjective - Date & Time of Evaluation Date of Evaluation: 05/08/17 Time of Evaluation: 11:13 - Subjective Subjective: awake oriented no distress toleratinig bipap still has endo tracheal tube in possily may remove it today Objective - Vital Signs/Intake and Output Vital Signs (last 24 hours): Temp Pulse Resp BP Pulse Ox 98.7 F 81 17 171/51 H 98 05/08/17 08:00 05/08/17 09:00 05/08/17 09:00 05/08/17 09:20 05/08/17 09:00 Intake and Output: 05/08/17 05/08/17 06:59 18:59 Intake Total 470 50 Output Total 1225 500 Balance -755 -450 - Medications Medications: Current Medications Acetazolamide (Diamox 250 Mg Tab) 250 mg PO BID [facility] Stop: 05/12/17 11:31 Last Admin: 05/08/17 09:21 Dose: 250 mg Albuterol/Ipratropium (Duoneb 3 Mg/0.5 Mg (3 Ml) Ud) 3 ml INH RQ6 [facility] Last Admin: 05/08/17 08:51 Dose: 3 ml Amlodipine Besylate (Norvasc) 10 mg PO DAILY [facility] Last Admin: 05/08/17 09:20 Dose: 10 mg Enoxaparin Sodium (Lovenox) 40 mg SC DAILY [facility] Last Admin: 05/08/17 09:21 Dose: 40 mg Furosemide (Lasix) 40 mg IVP Q12 [facility] Last Admin: 05/08/17 09:19 Dose: 40 mg Hydralazine HCl (Apresoline) 25 mg PO Q4 PRN PRN Reason: Other Hydromorphone HCl (Dilaudid) 0.5 mg IVP Q6H PRN PRN Reason: pain Last Admin: 05/06/17 22:00 Dose: 0.5 mg Linezolid (Zyvox 600mg/300ml D5w) 600 mg in 300 mls @ 300 mls/hr IVPB Q12H [facility] Last Admin: 05/07/17 23:55 Dose: 300 mls/hr Propofol (Diprivan) 1,000 mg in 100 mls @ 1.985 mls/hr IV .Q24H PRN; Protocol; 5 MCG/KG/MIN PRN Reason: TITRATE PER MD ORDER Last Titration: 05/07/17 11:00 Dose: 0 mcg/kg/min, 0 mls/hr Fluconazole (Diflucan Iv 200 Mg/100 Ml Ns) 100 mls @ 100 mls/hr IVPB Q24H [facility] Last Admin: 05/07/17 18:10 Dose: 100 mls/hr Cefepime HCl 1 gm/ Sodium (Chloride) 100 mls @ 100 mls/hr IVPB Q12H [facility] Last Admin: 05/07/17 23:00 Dose: 100 mls/hr Insulin Aspart (Novolog) 0 unit SC Q6 [facility] PRN Reason: Protocol Last Admin: 05/08/17 05:26 Dose: Not Given Lorazepam (Ativan) 2 mg IVP Q4H PRN PRN Reason: Anxiety Last Admin: 05/07/17 22:31 Dose: 2 mg Losartan Potassium (Cozaar) 50 mg PO DAILY [facility] Methylprednisolone (Solu-Medrol) 40 mg IVP DAILY [facility] Last Admin: 05/08/17 09:19 Dose: 40 mg Metoprolol Tartrate (Lopressor) 25 mg PO BID [facility] Last Admin: 05/08/17 09:20 Dose: 25 mg Nicotine (Nicoderm Cq) 1 patch TD DAILY [facility] Last Admin: 05/08/17 09:21 Dose: 1 patch Pantoprazole Sodium (Protonix Susp) 40 mg GT DAILY [facility] Last Admin: 05/08/17 09:20 Dose: 40 mg Potassium Chloride (K-Dur 20 Meq Er Tab) 20 meq PO BID [facility] Stop: 05/09/17 18:01 Last Admin: 05/08/17 09:20 Dose: 20 meq Vitamin A (Vitamin A & D Oint Ud Foilpak) 1 ea TOP Q4 PRN PRN Reason: dry lips Last Admin: 05/06/17 21:53 Dose: 1 ea - Labs Labs: 05/08/17 06:22 05/08/17 06:21 PT 11.8 SECONDS (9.7-12.2) 05/06/17 09:09 INR 1.0 05/06/17 09:09 APTT 24 SECONDS (21-34) 05/06/17 09:09 - Constitutional Appears: Non-toxic - Head Exam Head Exam: NORMAL INSPECTION - Eye Exam Eye Exam: Normal appearance Pupil Exam: NORMAL ACCOMODATION - ENT Exam ENT Exam: Mucous Membranes Dry - Neck Exam Neck Exam: Full ROM - Respiratory Exam Respiratory Exam: Decreased Breath Sounds - Cardiovascular Exam Cardiovascular Exam: REGULAR RHYTHM - GI/Abdominal Exam GI & Abdominal Exam: Normal Bowel Sounds - Exam External exam: NORMAL EXTERNAL EXAM - Extremities Exam Extremities Exam: Normal Inspection - Neurological Exam Neurological Exam: Alert - Psychiatric Exam Psychiatric exam: Normal Affect - Skin Skin Exam: Pallor Assessment and Plan - Assessment and Plan (Free Text) Assessment: s/p abd surgery nephrotic syndrome hep c s/p resp failiur Plan: cont as per icu
[2017-05-08] MEDS: Cefepime 1 GM in Sodium Chloride 0.9% 100 ML IVPB SCH ×2 (11:49→23:11)
[2017-05-08] MEDS: Linezolid 600 mg in D5W 300 ml 600 MG/300 ML BAG IVPB SCH (11:50)
--- NOTE | 2017-05-08 11:51 | CP.PCM.PN ---
Subjective - Date & Time of Evaluation Date of Evaluation: 05/08/17 Time of Evaluation: 09:00 - Subjective Subjective: awake oriented no distress toleratinig bipap still has endo tracheal tube Objective - Vital Signs/Intake and Output Vital Signs (last 24 hours): Temp Pulse Resp BP Pulse Ox 98.7 F 81 17 171/51 H 98 05/08/17 08:00 05/08/17 09:00 05/08/17 09:00 05/08/17 09:20 05/08/17 09:00 Intake and Output: 05/08/17 05/08/17 06:59 18:59 Intake Total 470 50 Output Total 1225 500 Balance -755 -450 - Medications Medications: Current Medications Acetazolamide (Diamox 250 Mg Tab) 250 mg PO BID [facility] Stop: 05/12/17 11:31 Last Admin: 05/08/17 09:21 Dose: 250 mg Albuterol/Ipratropium (Duoneb 3 Mg/0.5 Mg (3 Ml) Ud) 3 ml INH RQ6 [facility] Last Admin: 05/08/17 08:51 Dose: 3 ml Amlodipine Besylate (Norvasc) 10 mg PO DAILY [facility] Last Admin: 05/08/17 09:20 Dose: 10 mg Enoxaparin Sodium (Lovenox) 40 mg SC DAILY [facility] Last Admin: 05/08/17 09:21 Dose: 40 mg Furosemide (Lasix) 40 mg IVP Q12 [facility] Last Admin: 05/08/17 09:19 Dose: 40 mg Hydralazine HCl (Apresoline) 25 mg PO Q4 PRN PRN Reason: Other Hydromorphone HCl (Dilaudid) 0.5 mg IVP Q6H PRN PRN Reason: pain Last Admin: 05/06/17 22:00 Dose: 0.5 mg Linezolid (Zyvox 600mg/300ml D5w) 600 mg in 300 mls @ 300 mls/hr IVPB Q12H [facility] Last Admin: 05/07/17 23:55 Dose: 300 mls/hr Propofol (Diprivan) 1,000 mg in 100 mls @ 1.985 mls/hr IV .Q24H PRN; Protocol; 5 MCG/KG/MIN PRN Reason: TITRATE PER MD ORDER Last Titration: 05/07/17 11:00 Dose: 0 mcg/kg/min, 0 mls/hr Fluconazole (Diflucan Iv 200 Mg/100 Ml Ns) 100 mls @ 100 mls/hr IVPB Q24H [facility] Last Admin: 05/07/17 18:10 Dose: 100 mls/hr Cefepime HCl 1 gm/ Sodium (Chloride) 100 mls @ 100 mls/hr IVPB Q12H [facility] Last Admin: 05/07/17 23:00 Dose: 100 mls/hr Insulin Aspart (Novolog) 0 unit SC Q6 [facility] PRN Reason: Protocol Last Admin: 05/08/17 05:26 Dose: Not Given Lorazepam (Ativan) 2 mg IVP Q4H PRN PRN Reason: Anxiety Last Admin: 05/07/17 22:31 Dose: 2 mg Losartan Potassium (Cozaar) 50 mg PO DAILY [facility] Methylprednisolone (Solu-Medrol) 40 mg IVP DAILY [facility] Last Admin: 05/08/17 09:19 Dose: 40 mg Metoprolol Tartrate (Lopressor) 25 mg PO BID [facility] Last Admin: 05/08/17 09:20 Dose: 25 mg Nicotine (Nicoderm Cq) 1 patch TD DAILY [facility] Last Admin: 05/08/17 09:21 Dose: 1 patch Pantoprazole Sodium (Protonix Susp) 40 mg GT DAILY [facility] Last Admin: 05/08/17 09:20 Dose: 40 mg Potassium Chloride (K-Dur 20 Meq Er Tab) 20 meq PO BID [facility] Stop: 05/09/17 18:01 Last Admin: 05/08/17 09:20 Dose: 20 meq Vitamin A (Vitamin A & D Oint Ud Foilpak) 1 ea TOP Q4 PRN PRN Reason: dry lips Last Admin: 05/06/17 21:53 Dose: 1 ea - Labs Labs: 05/08/17 06:22 05/08/17 06:21 PT 11.8 SECONDS (9.7-12.2) 05/06/17 09:09 INR 1.0 05/06/17 09:09 APTT 24 SECONDS (21-34) 05/06/17 09:09 - Constitutional Appears: Non-toxic - Head Exam Head Exam: NORMOCEPHALIC - Eye Exam Eye Exam: absent: Scleral icterus - ENT Exam ENT Exam: Mucous Membranes Dry - Neck Exam Neck Exam: absent: Lymphadenopathy - Respiratory Exam Respiratory Exam: Decreased Breath Sounds - Cardiovascular Exam Cardiovascular Exam: REGULAR RHYTHM - GI/Abdominal Exam GI & Abdominal Exam: Distended, Soft - Rectal Exam Rectal Exam: Deferred - Exam Exam: NORMAL INSPECTION - Extremities Exam Extremities Exam: absent: Pedal Edema - Back Exam Back Exam: absent: CVA tenderness (L), CVA tenderness (R) - Neurological Exam Neurological Exam: Alert Assessment and Plan (1) Pelvic mass in female Status: Acute (2) Abdominal pain Status: Acute (3) Leukocytosis Status: Acute - Assessment and Plan (Free Text) Assessment: cont iv rx repeat cultures if pt spikes
--- NOTE | 2017-05-08 12:58 | CP.CCUPN ---
<Paresh Francis - Last Filed: 05/08/17 12:56> CCU Subjective - Physician Review Subjective (Free Text): patient seen and examined today extubated and tolerating well feeding is held No complaints at this time CCU Objective - Vital Signs / Intake & Output Vital Signs (Last 4 hours): Vital Signs Temp Pulse Resp BP Pulse Ox 05/08/17 12:00 98.4 F 80 22 152/54 H 98 05/08/17 11:45 81 05/08/17 11:44 75 29 H 152/54 H 98 05/08/17 11:26 84 29 H 175/51 H 95 05/08/17 11:00 68 20 98 05/08/17 10:00 80 24 97 05/08/17 09:44 87 21 162/58 H 99 05/08/17 09:20 171/51 H 05/08/17 09:19 171/51 H 05/08/17 09:00 81 17 98 Intake and Output (Last 8hrs): Intake & Output 05/07/17 05/08/17 05/08/17 22:59 06:59 14:59 Intake Total 445 400 50 Output Total 1750 675 500 Balance -1305 -275 -450 Weight 132 lb 2 oz Intake: Intake, IV Amount 100 400 Right Medial Port 100 Internal Jugular Right Proximal Port 0 Internal Jugular Right Proximal TLC 400 Tube Feeding 245 0 Other 100 50 Output: Urine 1750 675 500 Urethral (Tay) 1750 675 500 Other: # Bowel Movements 0 1 0 - Physical Exam Head: Positive for: Atraumatic, Normocephalic Pupils: Positive for: PERRL Extroacular Muscles: Positive for: EOMI Conjunctiva: Positive for: Normal Respiratory/Chest: Positive for: Rales, Rhonchi Cardiovascular: Positive for: Regular Rate and Rhythm Abdomen: Positive for: Tenderness. Negative for: Distention Psychiatric: Positive for: Alert - Medications Active Medications: Active Medications Generic Name Dose Route Start Last Admin Trade Name Freq PRN Reason Stop Dose Admin Acetazolamide 250 mg 05/07/17 11:30 05/08/17 09:21 Diamox 250 Mg Tab PO 05/12/17 11:31 250 mg BID ALEX Administration Albuterol/Ipratropium 3 ml 04/27/17 20:00 05/08/17 08:51 Duoneb 3 Mg/0.5 Mg (3 Ml) Ud INH 3 ml RQ6 ALEX Administration Amlodipine Besylate 10 mg 05/05/17 16:15 05/08/17 09:20 Norvasc PO 10 mg DAILY ALEX Administration Enoxaparin Sodium 40 mg 05/04/17 10:00 05/08/17 09:21 Lovenox SC 40 mg DAILY ALEX Administration Furosemide 40 mg 05/08/17 01:43 05/08/17 09:19 Lasix IVP 40 mg Q12 ALEX Administration Hydralazine HCl 25 mg 05/08/17 09:41 Apresoline PO Q4 PRN Other Hydromorphone HCl 0.5 mg 05/05/17 12:12 05/06/17 22:00 Dilaudid IVP 0.5 mg Q6H PRN Administration pain Linezolid 600 mg in 300 mls @ 300 mls/hr 05/01/17 12:00 05/08/17 11:50 Zyvox 600mg/300ml D5w IVPB 300 mls/hr Q12H ALEX Administration Propofol 1,000 mg in 100 mls @ 1.985 mls/hr 05/02/17 02:14 05/07/17 11:00 Diprivan IV 0 mcg/kg/min .Q24H PRN 0 mls/hr TITRATE PER MD ORDER Titration Protocol 5 MCG/KG/MIN Fluconazole 100 mls @ 100 mls/hr 05/04/17 19:00 05/07/17 18:10 Diflucan Iv 200 Mg/100 Ml Ns IVPB 100 mls/hr Q24H ALEX Administration Cefepime HCl 1 gm/ Sodium 100 mls @ 100 mls/hr 05/07/17 23:00 05/08/17 11:49 Chloride IVPB 100 mls/hr Q12H ALEX Administration Insulin Aspart 0 unit 05/03/17 12:00 05/08/17 12:05 Novolog SC Not Given Q6 [facility] Protocol Lorazepam 2 mg 05/01/17 21:54 05/07/17 22:31 Ativan IVP 2 mg Q4H PRN Administration Anxiety Losartan Potassium 50 mg 05/08/17 10:00 05/08/17 11:30 Cozaar PO Not Given DAILY ALEX Methylprednisolone 40 mg 05/06/17 10:00 05/08/17 09:19 Solu-Medrol IVP 40 mg DAILY ALEX Administration Metoprolol Tartrate 25 mg 05/06/17 10:00 05/08/17 09:20 Lopressor PO 25 mg BID ALEX Administration Nicotine 1 patch 05/05/17 10:15 05/08/17 09:21 Nicoderm Cq TD 1 patch DAILY ALEX Administration Pantoprazole Sodium 40 mg 05/06/17 10:00 05/08/17 09:20 Protonix Susp GT 40 mg DAILY ALEX Administration Potassium Chloride 20 meq 05/07/17 18:00 05/08/17 09:20 K-Dur 20 Meq Er Tab PO 05/09/17 18:01 20 meq BID ALEX Administration Vitamin A 1 ea 05/01/17 12:38 05/06/17 21:53 Vitamin A & D Oint Ud Foilpak TOP 1 ea Q4 PRN Administration dry lips - Patient Studies Lab Studies: Lab Studies 05/08/17 05/08/17 05/08/17 Range/Units 12:04 06:22 06:21 WBC 21.0 H (4.8-10.8) K/uL RBC 3.03 L (3.80-5.20) Mil/uL Hgb 8.4 L (11.0-16.0) g/dL Hct 26.0 L (34.0-47.0) % MCV 86.1 (81.0-99.0) fL MCH 27.8 (27.0-31.0) pg MCHC 32.3 L (33.0-37.0) g/dL RDW 15.0 H (11.5-14.5) % Plt Count 201 (130-400) K/uL MPV 8.9 (7.2-11.7) fL Neut % (Auto) 88.4 H (50.0-75.0) % Lymph % (Auto) 7.1 L (20.0-40.0) % Waller % (Auto) 3.0 (0.0-10.0) % Eos % (Auto) 1.1 (0.0-4.0) % Baso % (Auto) 0.4 (0.0-2.0) % Neut # (Auto) 18.5 H (1.8-7.0) K/uL Lymph # (Auto) 1.5 (1.0-4.3) K/uL Waller # (Auto) 0.6 (0.0-0.8) K/uL Eos # (Auto) 0.2 (0.0-0.7) K/uL Baso # (Auto) 0.1 (0.0-0.2) K/uL Neutrophils % (Manual) 90 H (50-75) % Lymphocytes % (Manual) 7 L (20-40) % Monocytes % (Manual) 2 (0-10) % Eosinophils % (Manual) 1 (0-4) % Platelet Estimate Normal (NORMAL) Hypochromasia (manual) Slight Poikilocytosis (manual Slight Anisocytosis (manual) Slight Microcytosis (manual) Slight Target Cells Slight Tear Drop Cells Slight Ovalocytes Slight Puncture Site pCO2 (35-45) mm/Hg pO2 (80-100) mm/Hg HCO3 (21-28) mmol/L ABG pH (7.35-7.45) ABG Total CO2 (22-28) mmol/L ABG O2 Saturation (95-98) % ABG Base Excess (-2.0-3.0) mmol/L Pierre Test ABG Potassium (3.6-5.2) mmol/L A-a O2 Difference mm/Hg Respiratory Index Sodium 151 H (132-148) mmol/l Chloride 107 (98-107) mmol/L Glucose (65-105) mg/dl Lactate (0.7-2.1) mmol/L Vent Mode FiO2 % Pressure Support CPAP Crit Value Called To Crit Value Called By Crit Value Read Back Blood Gas Notified Time Potassium 3.3 L (3.6-5.2) mmol/L Carbon Dioxide 35 H (22-30) mmol/L Anion Gap 13 (10-20) BUN 32 H (7-17) mg/dL Creatinine 0.7 (0.7-1.2) mg/dL Est GFR ( Amer) > 60 Est GFR (Non-Af Amer) > 60 POC Glucose (mg/dL) 128 H (65-110) mg/dL Random Glucose 91 (65-105) mg/dL Calcium 8.0 L (8.6-10.4) mg/dl Phosphorus 2.6 (2.5-4.5) mg/dL Magnesium 2.1 (1.6-2.3) mg/dL Total Bilirubin 0.5 (0.2-1.3) mg/dL AST 32 (14-36) U/L ALT 51 (9-52) U/L Alkaline Phosphatase 131 H (38-126) U/L Total Protein 5.2 L (6.3-8.3) g/dL Albumin 2.7 L (3.5-5.0) g/dL Globulin 2.6 (2.2-3.9) gm/dL Albumin/Globulin Ratio 1.0 (1.0-2.1) Arterial Blood Potassium (3.6-5.2) mmol/L C. difficile Ag & Toxin (NEGATIVE) 05/08/17 05/08/17 05/07/17 Range/Units 05:22 05:11 23:52 WBC (4.8-10.8) K/uL RBC (3.80-5.20) Mil/uL Hgb (11.0-16.0) g/dL Hct (34.0-47.0) % MCV (81.0-99.0) fL MCH (27.0-31.0) pg MCHC (33.0-37.0) g/dL RDW (11.5-14.5) % Plt Count (130-400) K/uL MPV (7.2-11.7) fL Neut % (Auto) (50.0-75.0) % Lymph % (Auto) (20.0-40.0) % Waller % (Auto) (0.0-10.0) % Eos % (Auto) (0.0-4.0) % Baso % (Auto) (0.0-2.0) % Neut # (Auto) (1.8-7.0) K/uL Lymph # (Auto) (1.0-4.3) K/uL Waller # (Auto) (0.0-0.8) K/uL Eos # (Auto) (0.0-0.7) K/uL Baso # (Auto) (0.0-0.2) K/uL Neutrophils % (Manual) (50-75) % Lymphocytes % (Manual) (20-40) % Monocytes % (Manual) (0-10) % Eosinophils % (Manual) (0-4) % Platelet Estimate (NORMAL) Hypochromasia (manual) Poikilocytosis (manual Anisocytosis (manual) Microcytosis (manual) Target Cells Tear Drop Cells Ovalocytes Puncture Site Rr pCO2 47 H (35-45) mm/Hg pO2 73 L (80-100) mm/Hg HCO3 32.0 H (21-28) mmol/L ABG pH 7.47 H (7.35-7.45) ABG Total CO2 35.6 H (22-28) mmol/L ABG O2 Saturation 96.8 (95-98) % ABG Base Excess 9.1 H (-2.0-3.0) mmol/L Pierre Test Pos ABG Potassium 3.2 L (3.6-5.2) mmol/L A-a O2 Difference 153.0 mm/Hg Respiratory Index 2.1 Sodium 152.0 H (132-148) mmol/l Chloride 112.0 H (98-107) mmol/L Glucose 92 (65-105) mg/dl Lactate 1.4 (0.7-2.1) mmol/L Vent Mode Cpap FiO2 40.0 % Pressure Support 12 CPAP 5 Crit Value Called To Crit Value Called By Crit Value Read Back Blood Gas Notified Time Potassium (3.6-5.2) mmol/L Carbon Dioxide (22-30) mmol/L Anion Gap (10-20) BUN (7-17) mg/dL Creatinine (0.7-1.2) mg/dL Est GFR ( Amer) Est GFR (Non-Af Amer) POC Glucose (mg/dL) 88 96 (65-110) mg/dL Random Glucose (65-105) mg/dL Calcium (8.6-10.4) mg/dl Phosphorus (2.5-4.5) mg/dL Magnesium (1.6-2.3) mg/dL Total Bilirubin (0.2-1.3) mg/dL AST (14-36) U/L ALT (9-52) U/L Alkaline Phosphatase (38-126) U/L Total Protein (6.3-8.3) g/dL Albumin (3.5-5.0) g/dL Globulin (2.2-3.9) gm/dL Albumin/Globulin Ratio (1.0-2.1) Arterial Blood Potassium 3.2 L (3.6-5.2) mmol/L C. difficile Ag & Toxin (NEGATIVE) 05/07/17 05/07/17 05/07/17 Range/Units 17:22 14:25 12:25 WBC (4.8-10.8) K/uL RBC (3.80-5.20) Mil/uL Hgb (11.0-16.0) g/dL Hct (34.0-47.0) % MCV (81.0-99.0) fL MCH (27.0-31.0) pg MCHC (33.0-37.0) g/dL RDW (11.5-14.5) % Plt Count (130-400) K/uL MPV (7.2-11.7) fL Neut % (Auto) (50.0-75.0) % Lymph % (Auto) (20.0-40.0) % Waller % (Auto) (0.0-10.0) % Eos % (Auto) (0.0-4.0) % Baso % (Auto) (0.0-2.0) % Neut # (Auto) (1.8-7.0) K/uL Lymph # (Auto) (1.0-4.3) K/uL Waller # (Auto) (0.0-0.8) K/uL Eos # (Auto) (0.0-0.7) K/uL Baso # (Auto) (0.0-0.2) K/uL Neutrophils % (Manual) (50-75) % Lymphocytes % (Manual) (20-40) % Monocytes % (Manual) (0-10) % Eosinophils % (Manual) (0-4) % Platelet Estimate (NORMAL) Hypochromasia (manual) Poikilocytosis (manual Anisocytosis (manual) Microcytosis (manual) Target Cells Tear Drop Cells Ovalocytes Puncture Site Lf pCO2 57 H (35-45) mm/Hg pO2 73 L (80-100) mm/Hg HCO3 42.4 H* (21-28) mmol/L ABG pH 7.54 H (7.35-7.45) ABG Total CO2 50.4 H (22-28) mmol/L ABG O2 Saturation 97.3 (95-98) % ABG Base Excess 22.4 H (-2.0-3.0) mmol/L Pierre Test Na ABG Potassium 3.3 L (3.6-5.2) mmol/L A-a O2 Difference 141.0 mm/Hg Respiratory Index 1.9 Sodium 149.0 H (132-148) mmol/l Chloride 104.0 (98-107) mmol/L Glucose 134 H (65-105) mg/dl Lactate 2.4 H (0.7-2.1) mmol/L Vent Mode FiO2 40.0 % Pressure Support 12 CPAP 5 Crit Value Called To Dr ortiz Crit Value Called By Srinivasa george optician apprentice dispensing Crit Value Read Back Y Blood Gas Notified Time 1445 Potassium (3.6-5.2) mmol/L Carbon Dioxide (22-30) mmol/L Anion Gap (10-20) BUN (7-17) mg/dL Creatinine (0.7-1.2) mg/dL Est GFR ( Amer) Est GFR (Non-Af Amer) POC Glucose (mg/dL) 116 H (65-110) mg/dL Random Glucose (65-105) mg/dL Calcium (8.6-10.4) mg/dl Phosphorus (2.5-4.5) mg/dL Magnesium (1.6-2.3) mg/dL Total Bilirubin (0.2-1.3) mg/dL AST (14-36) U/L ALT (9-52) U/L Alkaline Phosphatase (38-126) U/L Total Protein (6.3-8.3) g/dL Albumin (3.5-5.0) g/dL Globulin (2.2-3.9) gm/dL Albumin/Globulin Ratio (1.0-2.1) Arterial Blood Potassium 3.3 L (3.6-5.2) mmol/L C. difficile Ag & Toxin Negative (NEGATIVE) 05/07/17 Range/Units 11:47 WBC (4.8-10.8) K/uL RBC (3.80-5.20) Mil/uL Hgb (11.0-16.0) g/dL Hct (34.0-47.0) % MCV (81.0-99.0) fL MCH (27.0-31.0) pg MCHC (33.0-37.0) g/dL RDW (11.5-14.5) % Plt Count (130-400) K/uL MPV (7.2-11.7) fL Neut % (Auto) (50.0-75.0) % Lymph % (Auto) (20.0-40.0) % Waller % (Auto) (0.0-10.0) % Eos % (Auto) (0.0-4.0) % Baso % (Auto) (0.0-2.0) % Neut # (Auto) (1.8-7.0) K/uL Lymph # (Auto) (1.0-4.3) K/uL Waller # (Auto) (0.0-0.8) K/uL Eos # (Auto) (0.0-0.7) K/uL Baso # (Auto) (0.0-0.2) K/uL Neutrophils % (Manual) (50-75) % Lymphocytes % (Manual) (20-40) % Monocytes % (Manual) (0-10) % Eosinophils % (Manual) (0-4) % Platelet Estimate (NORMAL) Hypochromasia (manual) Poikilocytosis (manual Anisocytosis (manual) Microcytosis (manual) Target Cells Tear Drop Cells Ovalocytes Puncture Site pCO2 (35-45) mm/Hg pO2 (80-100) mm/Hg HCO3 (21-28) mmol/L ABG pH (7.35-7.45) ABG Total CO2 (22-28) mmol/L ABG O2 Saturation (95-98) % ABG Base Excess (-2.0-3.0) mmol/L Pierre Test ABG Potassium (3.6-5.2) mmol/L A-a O2 Difference mm/Hg Respiratory Index Sodium (132-148) mmol/l Chloride (98-107) mmol/L Glucose (65-105) mg/dl Lactate (0.7-2.1) mmol/L Vent Mode FiO2 % Pressure Support CPAP Crit Value Called To Crit Value Called By Crit Value Read Back Blood Gas Notified Time Potassium (3.6-5.2) mmol/L Carbon Dioxide (22-30) mmol/L Anion Gap (10-20) BUN (7-17) mg/dL Creatinine (0.7-1.2) mg/dL Est GFR ( Amer) Est GFR (Non-Af Amer) POC Glucose (mg/dL) 121 H (65-110) mg/dL Random Glucose (65-105) mg/dL Calcium (8.6-10.4) mg/dl Phosphorus (2.5-4.5) mg/dL Magnesium (1.6-2.3) mg/dL Total Bilirubin (0.2-1.3) mg/dL AST (14-36) U/L ALT (9-52) U/L Alkaline Phosphatase (38-126) U/L Total Protein (6.3-8.3) g/dL Albumin (3.5-5.0) g/dL Globulin (2.2-3.9) gm/dL Albumin/Globulin Ratio (1.0-2.1) Arterial Blood Potassium (3.6-5.2) mmol/L C. difficile Ag & Toxin (NEGATIVE) Laboratory Results - last 24 hr 05/07/17 05/07/17 05/07/17 11:47 12:25 14:25 WBC RBC Hgb Hct MCV MCH MCHC RDW Plt Count MPV Neut % (Auto) Lymph % (Auto) Waller % (Auto) Eos % (Auto) Baso % (Auto) Neut # (Auto) Lymph # (Auto) Waller # (Auto) Eos # (Auto) Baso # (Auto) Neutrophils % (Manual) Lymphocytes % (Manual) Monocytes % (Manual) Eosinophils % (Manual) Platelet Estimate Hypochromasia (manual) Poikilocytosis (manual Anisocytosis (manual) Microcytosis (manual) Target Cells Tear Drop Cells Ovalocytes Puncture Site Lf pCO2 57 H pO2 73 L HCO3 42.4 H* ABG pH 7.54 H ABG Total CO2 50.4 H ABG O2 Saturation 97.3 ABG Base Excess 22.4 H Pierre Test Na ABG Potassium 3.3 L A-a O2 Difference 141.0 Respiratory Index 1.9 Sodium 149.0 H Chloride 104.0 Glucose 134 H Lactate 2.4 H Vent Mode FiO2 40.0 Pressure Support 12 CPAP 5 Crit Value Called To Dr ortiz Crit Value Called By Srinivasa george optician apprentice dispensing Crit Value Read Back Y Blood Gas Notified Time 1445 Potassium Carbon Dioxide Anion Gap BUN Creatinine Est GFR ( Amer) Est GFR (Non-Af Amer) POC Glucose (mg/dL) 121 H Random Glucose Calcium Phosphorus Magnesium Total Bilirubin AST ALT Alkaline Phosphatase Total Protein Albumin Globulin Albumin/Globulin Ratio Arterial Blood Potassium 3.3 L C. difficile Ag & Toxin Negative 05/07/17 05/07/17 05/08/17 17:22 23:52 05:11 WBC RBC Hgb Hct MCV MCH MCHC RDW Plt Count MPV Neut % (Auto) Lymph % (Auto) Waller % (Auto) Eos % (Auto) Baso % (Auto) Neut # (Auto) Lymph # (Auto) Waller # (Auto) Eos # (Auto) Baso # (Auto) Neutrophils % (Manual) Lymphocytes % (Manual) Monocytes % (Manual) Eosinophils % (Manual) Platelet Estimate Hypochromasia (manual) Poikilocytosis (manual Anisocytosis (manual) Microcytosis (manual) Target Cells Tear Drop Cells Ovalocytes Puncture Site pCO2 pO2 HCO3 ABG pH ABG Total CO2 ABG O2 Saturation ABG Base Excess Pierre Test ABG Potassium A-a O2 Difference Respiratory Index Sodium Chloride Glucose Lactate Vent Mode FiO2 Pressure Support CPAP Crit Value Called To Crit Value Called By Crit Value Read Back Blood Gas Notified Time Potassium Carbon Dioxide Anion Gap BUN Creatinine Est GFR ( Amer) Est GFR (Non-Af Amer) POC Glucose (mg/dL) 116 H 96 88 Random Glucose Calcium Phosphorus Magnesium Total Bilirubin AST ALT Alkaline Phosphatase Total Protein Albumin Globulin Albumin/Globulin Ratio Arterial Blood Potassium C. difficile Ag & Toxin 05/08/17 05/08/17 05/08/17 05:22 06:21 06:22 WBC 21.0 H RBC 3.03 L Hgb 8.4 L Hct 26.0 L MCV 86.1 MCH 27.8 MCHC 32.3 L RDW 15.0 H Plt Count 201 MPV 8.9 Neut % (Auto) 88.4 H Lymph % (Auto) 7.1 L Waller % (Auto) 3.0 Eos % (Auto) 1.1 Baso % (Auto) 0.4 Neut # (Auto) 18.5 H Lymph # (Auto) 1.5 Waller # (Auto) 0.6 Eos # (Auto) 0.2 Baso # (Auto) 0.1 Neutrophils % (Manual) 90 H Lymphocytes % (Manual) 7 L Monocytes % (Manual) 2 Eosinophils % (Manual) 1 Platelet Estimate Normal Hypochromasia (manual) Slight Poikilocytosis (manual Slight Anisocytosis (manual) Slight Microcytosis (manual) Slight Target Cells Slight Tear Drop Cells Slight Ovalocytes Slight Puncture Site Rr pCO2 47 H pO2 73 L HCO3 32.0 H ABG pH 7.47 H ABG Total CO2 35.6 H ABG O2 Saturation 96.8 ABG Base Excess 9.1 H Pierre Test Pos ABG Potassium 3.2 L A-a O2 Difference 153.0 Respiratory Index 2.1 Sodium 152.0 H 151 H Chloride 112.0 H 107 Glucose 92 Lactate 1.4 Vent Mode Cpap FiO2 40.0 Pressure Support 12 CPAP 5 Crit Value Called To Crit Value Called By Crit Value Read Back Blood Gas Notified Time Potassium 3.3 L Carbon Dioxide 35 H Anion Gap 13 BUN 32 H Creatinine 0.7 Est GFR ( Amer) > 60 Est GFR (Non-Af Amer) > 60 POC Glucose (mg/dL) Random Glucose 91 Calcium 8.0 L Phosphorus 2.6 Magnesium 2.1 Total Bilirubin 0.5 AST 32 ALT 51 Alkaline Phosphatase 131 H Total Protein 5.2 L Albumin 2.7 L Globulin 2.6 Albumin/Globulin Ratio 1.0 Arterial Blood Potassium 3.2 L C. difficile Ag & Toxin 05/08/17 12:04 WBC RBC Hgb Hct MCV MCH MCHC RDW Plt Count MPV Neut % (Auto) Lymph % (Auto) Waller % (Auto) Eos % (Auto) Baso % (Auto) Neut # (Auto) Lymph # (Auto) Waller # (Auto) Eos # (Auto) Baso # (Auto) Neutrophils % (Manual) Lymphocytes % (Manual) Monocytes % (Manual) Eosinophils % (Manual) Platelet Estimate Hypochromasia (manual) Poikilocytosis (manual Anisocytosis (manual) Microcytosis (manual) Target Cells Tear Drop Cells Ovalocytes Puncture Site pCO2 pO2 HCO3 ABG pH ABG Total CO2 ABG O2 Saturation ABG Base Excess Pierre Test ABG Potassium A-a O2 Difference Respiratory Index Sodium Chloride Glucose Lactate Vent Mode FiO2 Pressure Support CPAP Crit Value Called To Crit Value Called By Crit Value Read Back Blood Gas Notified Time Potassium Carbon Dioxide Anion Gap BUN Creatinine Est GFR ( Amer) Est GFR (Non-Af Amer) POC Glucose (mg/dL) 128 H Random Glucose Calcium Phosphorus Magnesium Total Bilirubin AST ALT Alkaline Phosphatase Total Protein Albumin Globulin Albumin/Globulin Ratio Arterial Blood Potassium C. difficile Ag & Toxin Fingerstick Blood Sugar Results: 125 Assessment/Plan - Assessment and Plan (Free Text) Assessment: 66yo F s/p left ovarian salpingo-oopherectomy, post-op c/b aspiration pneumonitis with subsequent ARDS. Neuro: off of paralytics. D/c sedation. awake and alert Pulm: aspiration pneumonia/pneumonitis with moderate ARDS. Xray does not seem to be improving much but clinically she is improving, extubated today, tolerating well thus far CV: hemodynamically stable. Hem: benign cystadenoma Renal: nephrotic syndrome, Decrease lasix to 40 Q12 as patient has contraction alkalosis GI: Jevity ID: [id number] UTI, continue Zyvox, Cefepime, fluconazole DVT proph - lovenox GI proph - protonix po tay for strict I/O's during acute illness Code status - full code <Dawood Ramirez - Last Filed: 05/08/17 17:26> CCU Objective - Vital Signs / Intake & Output Vital Signs (Last 4 hours): Vital Signs Pulse Resp BP Pulse Ox 05/08/17 15:55 82 05/08/17 15:00 85 19 100 05/08/17 14:44 91 H 17 170/48 H 100 05/08/17 14:00 80 16 100 05/08/17 13:44 75 23 165/48 H 100 Intake and Output (Last 8hrs): Intake & Output 05/08/17 05/08/17 05/08/17 06:59 14:59 22:59 Intake Total 400 570 Output Total 675 1900 350 Balance -275 -1330 -350 Weight 132 lb 2 oz Intake: Intake, IV Amount 400 400 Right Proximal TLC 400 400 Tube Feeding 0 120 Other 50 Output: Urine 675 1900 350 Urethral (Tay) 675 1900 350 Other: # Bowel Movements 1 1 0 - Medications Active Medications: Active Medications Generic Name Dose Route Start Last Admin Trade Name Freq PRN Reason Stop Dose Admin Acetazolamide 250 mg 05/07/17 11:30 05/08/17 09:21 Diamox 250 Mg Tab PO 05/12/17 11:31 250 mg BID ALEX Administration Albuterol/Ipratropium 3 ml 04/27/17 20:00 05/08/17 13:42 Duoneb 3 Mg/0.5 Mg (3 Ml) Ud INH 3 ml RQ6 ALEX Administration Amlodipine Besylate 10 mg 05/05/17 16:15 05/08/17 09:20 Norvasc PO 10 mg DAILY ALEX Administration Enoxaparin Sodium 40 mg 05/04/17 10:00 05/08/17 09:21 Lovenox SC 40 mg DAILY ALEX Administration Furosemide 40 mg 05/08/17 01:43 05/08/17 09:19 Lasix IVP 40 mg Q12 ALEX Administration Hydralazine HCl 25 mg 05/08/17 09:41 Apresoline PO Q4 PRN Other Hydromorphone HCl 0.5 mg 05/05/17 12:12 05/06/17 22:00 Dilaudid IVP 0.5 mg Q6H PRN Administration pain Linezolid 600 mg in 300 mls @ 300 mls/hr 05/01/17 12:00 05/08/17 11:50 Zyvox 600mg/300ml D5w IVPB 300 mls/hr Q12H ALEX Administration Propofol 1,000 mg in 100 mls @ 1.985 mls/hr 05/02/17 02:14 05/07/17 11:00 Diprivan IV 0 mcg/kg/min .Q24H PRN 0 mls/hr TITRATE PER MD ORDER Titration Protocol 5 MCG/KG/MIN Fluconazole 100 mls @ 100 mls/hr 05/04/17 19:00 05/07/17 18:10 Diflucan Iv 200 Mg/100 Ml Ns IVPB 100 mls/hr Q24H ALEX Administration Cefepime HCl 1 gm/ Sodium 100 mls @ 100 mls/hr 05/07/17 23:00 05/08/17 11:49 Chloride IVPB 100 mls/hr Q12H ALEX Administration Insulin Aspart 0 unit 05/03/17 12:00 05/08/17 12:05 Novolog SC Not Given Q6 ALEX Protocol Lorazepam 2 mg 05/01/17 21:54 05/07/17 22:31 Ativan IVP 2 mg Q4H PRN Administration Anxiety Losartan Potassium 50 mg 05/08/17 10:00 05/08/17 11:30 Cozaar PO Not Given DAILY ALEX Methylprednisolone 40 mg 05/06/17 10:00 05/08/17 09:19 Solu-Medrol IVP 40 mg DAILY ALEX Administration Metoprolol Tartrate 25 mg 05/06/17 10:00 05/08/17 09:20 Lopressor PO 25 mg BID ALEX Administration Nicotine 1 patch 05/05/17 10:15 05/08/17 09:21 Nicoderm Cq TD 1 patch DAILY ALEX Administration Pantoprazole Sodium 40 mg 05/06/17 10:00 05/08/17 09:20 Protonix Susp GT 40 mg DAILY ALEX Administration Potassium Chloride 20 meq 05/07/17 18:00 05/08/17 09:20 K-Dur 20 Meq Er Tab PO 05/09/17 18:01 20 meq BID ALEX Administration Vitamin A 1 ea 05/01/17 12:38 05/06/17 21:53 Vitamin A & D Oint Ud Foilpak TOP 1 ea Q4 PRN Administration dry lips - Patient Studies Lab Studies: Lab Studies 05/08/17 05/08/17 05/08/17 Range/Units 12:04 06:22 06:21 WBC 21.0 H (4.8-10.8) K/uL RBC 3.03 L (3.80-5.20) Mil/uL Hgb 8.4 L (11.0-16.0) g/dL Hct 26.0 L (34.0-47.0) % MCV 86.1 (81.0-99.0) fL MCH 27.8 (27.0-31.0) pg MCHC 32.3 L (33.0-37.0) g/dL RDW 15.0 H (11.5-14.5) % Plt Count 201 (130-400) K/uL MPV 8.9 (7.2-11.7) fL Neut % (Auto) 88.4 H (50.0-75.0) % Lymph % (Auto) 7.1 L (20.0-40.0) % Waller % (Auto) 3.0 (0.0-10.0) % Eos % (Auto) 1.1 (0.0-4.0) % Baso % (Auto) 0.4 (0.0-2.0) % Neut # (Auto) 18.5 H (1.8-7.0) K/uL Lymph # (Auto) 1.5 (1.0-4.3) K/uL Waller # (Auto) 0.6 (0.0-0.8) K/uL Eos # (Auto) 0.2 (0.0-0.7) K/uL Baso # (Auto) 0.1 (0.0-0.2) K/uL Neutrophils % (Manual) 90 H (50-75) % Lymphocytes % (Manual) 7 L (20-40) % Monocytes % (Manual) 2 (0-10) % Eosinophils % (Manual) 1 (0-4) % Platelet Estimate Normal (NORMAL) Hypochromasia (manual) Slight Poikilocytosis (manual Slight Anisocytosis (manual) Slight Microcytosis (manual) Slight Target Cells Slight Tear Drop Cells Slight Ovalocytes Slight Puncture Site pCO2 (35-45) mm/Hg pO2 (80-100) mm/Hg HCO3 (21-28) mmol/L ABG pH (7.35-7.45) ABG Total CO2 (22-28) mmol/L ABG O2 Saturation (95-98) % ABG Base Excess (-2.0-3.0) mmol/L Pierre Test ABG Potassium (3.6-5.2) mmol/L A-a O2 Difference mm/Hg Respiratory Index Sodium 151 H (132-148) mmol/l Chloride 107 (98-107) mmol/L Glucose (65-105) mg/dl Lactate (0.7-2.1) mmol/L Vent Mode FiO2 % Pressure Support CPAP Potassium 3.3 L (3.6-5.2) mmol/L Carbon Dioxide 35 H (22-30) mmol/L Anion Gap 13 (10-20) BUN 32 H (7-17) mg/dL Creatinine 0.7 (0.7-1.2) mg/dL Est GFR ( Amer) > 60 Est GFR (Non-Af Amer) > 60 POC Glucose (mg/dL) 128 H (65-110) mg/dL Random Glucose 91 (65-105) mg/dL Calcium 8.0 L (8.6-10.4) mg/dl Phosphorus 2.6 (2.5-4.5) mg/dL Magnesium 2.1 (1.6-2.3) mg/dL Total Bilirubin 0.5 (0.2-1.3) mg/dL AST 32 (14-36) U/L ALT 51 (9-52) U/L Alkaline Phosphatase 131 H (38-126) U/L Total Protein 5.2 L (6.3-8.3) g/dL Albumin 2.7 L (3.5-5.0) g/dL Globulin 2.6 (2.2-3.9) gm/dL Albumin/Globulin Ratio 1.0 (1.0-2.1) Arterial Blood Potassium (3.6-5.2) mmol/L 05/08/17 05/08/17 05/07/17 Range/Units 05:22 05:11 23:52 WBC (4.8-10.8) K/uL RBC (3.80-5.20) Mil/uL Hgb (11.0-16.0) g/dL Hct (34.0-47.0) % MCV (81.0-99.0) fL MCH (27.0-31.0) pg MCHC (33.0-37.0) g/dL RDW (11.5-14.5) % Plt Count (130-400) K/uL MPV (7.2-11.7) fL Neut % (Auto) (50.0-75.0) % Lymph % (Auto) (20.0-40.0) % Waller % (Auto) (0.0-10.0) % Eos % (Auto) (0.0-4.0) % Baso % (Auto) (0.0-2.0) % Neut # (Auto) (1.8-7.0) K/uL Lymph # (Auto) (1.0-4.3) K/uL Waller # (Auto) (0.0-0.8) K/uL Eos # (Auto) (0.0-0.7) K/uL Baso # (Auto) (0.0-0.2) K/uL Neutrophils % (Manual) (50-75) % Lymphocytes % (Manual) (20-40) % Monocytes % (Manual) (0-10) % Eosinophils % (Manual) (0-4) % Platelet Estimate (NORMAL) Hypochromasia (manual) Poikilocytosis (manual Anisocytosis (manual) Microcytosis (manual) Target Cells Tear Drop Cells Ovalocytes Puncture Site Rr pCO2 47 H (35-45) mm/Hg pO2 73 L (80-100) mm/Hg HCO3 32.0 H (21-28) mmol/L ABG pH 7.47 H (7.35-7.45) ABG Total CO2 35.6 H (22-28) mmol/L ABG O2 Saturation 96.8 (95-98) % ABG Base Excess 9.1 H (-2.0-3.0) mmol/L Pierre Test Pos ABG Potassium 3.2 L (3.6-5.2) mmol/L A-a O2 Difference 153.0 mm/Hg Respiratory Index 2.1 Sodium 152.0 H (132-148) mmol/l Chloride 112.0 H (98-107) mmol/L Glucose 92 (65-105) mg/dl Lactate 1.4 (0.7-2.1) mmol/L Vent Mode Cpap FiO2 40.0 % Pressure Support 12 CPAP 5 Potassium (3.6-5.2) mmol/L Carbon Dioxide (22-30) mmol/L Anion Gap (10-20) BUN (7-17) mg/dL Creatinine (0.7-1.2) mg/dL Est GFR ( Amer) Est GFR (Non-Af Amer) POC Glucose (mg/dL) 88 96 (65-110) mg/dL Random Glucose (65-105) mg/dL Calcium (8.6-10.4) mg/dl Phosphorus (2.5-4.5) mg/dL Magnesium (1.6-2.3) mg/dL Total Bilirubin (0.2-1.3) mg/dL AST (14-36) U/L ALT (9-52) U/L Alkaline Phosphatase (38-126) U/L Total Protein (6.3-8.3) g/dL Albumin (3.5-5.0) g/dL Globulin (2.2-3.9) gm/dL Albumin/Globulin Ratio (1.0-2.1) Arterial Blood Potassium 3.2 L (3.6-5.2) mmol/L 05/07/17 Range/Units 17:22 WBC (4.8-10.8) K/uL RBC (3.80-5.20) Mil/uL Hgb (11.0-16.0) g/dL Hct (34.0-47.0) % MCV (81.0-99.0) fL MCH (27.0-31.0) pg MCHC (33.0-37.0) g/dL RDW (11.5-14.5) % Plt Count (130-400) K/uL MPV (7.2-11.7) fL Neut % (Auto) (50.0-75.0) % Lymph % (Auto) (20.0-40.0) % Waller % (Auto) (0.0-10.0) % Eos % (Auto) (0.0-4.0) % Baso % (Auto) (0.0-2.0) % Neut # (Auto) (1.8-7.0) K/uL Lymph # (Auto) (1.0-4.3) K/uL Waller # (Auto) (0.0-0.8) K/uL Eos # (Auto) (0.0-0.7) K/uL Baso # (Auto) (0.0-0.2) K/uL Neutrophils % (Manual) (50-75) % Lymphocytes % (Manual) (20-40) % Monocytes % (Manual) (0-10) % Eosinophils % (Manual) (0-4) % Platelet Estimate (NORMAL) Hypochromasia (manual) Poikilocytosis (manual Anisocytosis (manual) Microcytosis (manual) Target Cells Tear Drop Cells Ovalocytes Puncture Site pCO2 (35-45) mm/Hg pO2 (80-100) mm/Hg HCO3 (21-28) mmol/L ABG pH (7.35-7.45) ABG Total CO2 (22-28) mmol/L ABG O2 Saturation (95-98) % ABG Base Excess (-2.0-3.0) mmol/L Pierre Test ABG Potassium (3.6-5.2) mmol/L A-a O2 Difference mm/Hg Respiratory Index Sodium (132-148) mmol/l Chloride (98-107) mmol/L Glucose (65-105) mg/dl Lactate (0.7-2.1) mmol/L Vent Mode FiO2 % Pressure Support CPAP Potassium (3.6-5.2) mmol/L Carbon Dioxide (22-30) mmol/L Anion Gap (10-20) BUN (7-17) mg/dL Creatinine (0.7-1.2) mg/dL Est GFR ( Amer) Est GFR (Non-Af Amer) POC Glucose (mg/dL) 116 H (65-110) mg/dL Random Glucose (65-105) mg/dL Calcium (8.6-10.4) mg/dl Phosphorus (2.5-4.5) mg/dL Magnesium (1.6-2.3) mg/dL Total Bilirubin (0.2-1.3) mg/dL AST (14-36) U/L ALT (9-52) U/L Alkaline Phosphatase (38-126) U/L Total Protein (6.3-8.3) g/dL Albumin (3.5-5.0) g/dL Globulin (2.2-3.9) gm/dL Albumin/Globulin Ratio (1.0-2.1) Arterial Blood Potassium (3.6-5.2) mmol/L Laboratory Results - last 24 hr 05/07/17 05/07/17 05/08/17 17:22 23:52 05:11 WBC RBC Hgb Hct MCV MCH MCHC RDW Plt Count MPV Neut % (Auto) Lymph % (Auto) Waller % (Auto) Eos % (Auto) Baso % (Auto) Neut # (Auto) Lymph # (Auto) Waller # (Auto) Eos # (Auto) Baso # (Auto) Neutrophils % (Manual) Lymphocytes % (Manual) Monocytes % (Manual) Eosinophils % (Manual) Platelet Estimate Hypochromasia (manual) Poikilocytosis (manual Anisocytosis (manual) Microcytosis (manual) Target Cells Tear Drop Cells Ovalocytes Puncture Site pCO2 pO2 HCO3 ABG pH ABG Total CO2 ABG O2 Saturation ABG Base Excess Pierre Test ABG Potassium A-a O2 Difference Respiratory Index Sodium Chloride Glucose Lactate Vent Mode FiO2 Pressure Support CPAP Potassium Carbon Dioxide Anion Gap BUN Creatinine Est GFR ( Amer) Est GFR (Non-Af Amer) POC Glucose (mg/dL) 116 H 96 88 Random Glucose Calcium Phosphorus Magnesium Total Bilirubin AST ALT Alkaline Phosphatase Total Protein Albumin Globulin Albumin/Globulin Ratio Arterial Blood Potassium 05/08/17 05/08/17 05/08/17 05:22 06:21 06:22 WBC 21.0 H RBC 3.03 L Hgb 8.4 L Hct 26.0 L MCV 86.1 MCH 27.8 MCHC 32.3 L RDW 15.0 H Plt Count 201 MPV 8.9 Neut % (Auto) 88.4 H Lymph % (Auto) 7.1 L Waller % (Auto) 3.0 Eos % (Auto) 1.1 Baso % (Auto) 0.4 Neut # (Auto) 18.5 H Lymph # (Auto) 1.5 Waller # (Auto) 0.6 Eos # (Auto) 0.2 Baso # (Auto) 0.1 Neutrophils % (Manual) 90 H Lymphocytes % (Manual) 7 L Monocytes % (Manual) 2 Eosinophils % (Manual) 1 Platelet Estimate Normal Hypochromasia (manual) Slight Poikilocytosis (manual Slight Anisocytosis (manual) Slight Microcytosis (manual) Slight Target Cells Slight Tear Drop Cells Slight Ovalocytes Slight Puncture Site Rr pCO2 47 H pO2 73 L HCO3 32.0 H ABG pH 7.47 H ABG Total CO2 35.6 H ABG O2 Saturation 96.8 ABG Base Excess 9.1 H Pierre Test Pos ABG Potassium 3.2 L A-a O2 Difference 153.0 Respiratory Index 2.1 Sodium 152.0 H 151 H Chloride 112.0 H 107 Glucose 92 Lactate 1.4 Vent Mode Cpap FiO2 40.0 Pressure Support 12 CPAP 5 Potassium 3.3 L Carbon Dioxide 35 H Anion Gap 13 BUN 32 H Creatinine 0.7 Est GFR ( Amer) > 60 Est GFR (Non-Af Amer) > 60 POC Glucose (mg/dL) Random Glucose 91 Calcium 8.0 L Phosphorus 2.6 Magnesium 2.1 Total Bilirubin 0.5 AST 32 ALT 51 Alkaline Phosphatase 131 H Total Protein 5.2 L Albumin 2.7 L Globulin 2.6 Albumin/Globulin Ratio 1.0 Arterial Blood Potassium 3.2 L 05/08/17 12:04 WBC RBC Hgb Hct MCV MCH MCHC RDW Plt Count MPV Neut % (Auto) Lymph % (Auto) Waller % (Auto) Eos % (Auto) Baso % (Auto) Neut # (Auto) Lymph # (Auto) Waller # (Auto) Eos # (Auto) Baso # (Auto) Neutrophils % (Manual) Lymphocytes % (Manual) Monocytes % (Manual) Eosinophils % (Manual) Platelet Estimate Hypochromasia (manual) Poikilocytosis (manual Anisocytosis (manual) Microcytosis (manual) Target Cells Tear Drop Cells Ovalocytes Puncture Site pCO2 pO2 HCO3 ABG pH ABG Total CO2 ABG O2 Saturation ABG Base Excess Pierre Test ABG Potassium A-a O2 Difference Respiratory Index Sodium Chloride Glucose Lactate Vent Mode FiO2 Pressure Support CPAP Potassium Carbon Dioxide Anion Gap BUN Creatinine Est GFR ( Amer) Est GFR (Non-Af Amer) POC Glucose (mg/dL) 128 H Random Glucose Calcium Phosphorus Magnesium Total Bilirubin AST ALT Alkaline Phosphatase Total Protein Albumin Globulin Albumin/Globulin Ratio Arterial Blood Potassium Assessment/Plan (1) Acute respiratory distress syndrome (ARDS) Current Visit: Yes Status: Acute Attending/Attestation - Attestation I have personally seen and examined this patient.: Yes I have fully participated in the care of the patient.: Yes I have reviewed all pertinent clinical information: Yes Notes (Text): 05/08/17 17:23 I have seen and examined the patient. Medical records, lab studies, and imaging were reviewed by me and a management plan was formulated on multidisciplinary rounds with resident Dr. Francis. I agree with their documented assessment and plan. Patient has had marked improvements in her pulmonary status and was extubated today to BIPAP. Speech and swallow eval tomorrow. Critical Care Time 35 minutes. Multi-disciplinary rounds were performed with house staff, nursing, speech therapy, respiratory therapy, pharmacy and nutrition with integrated input from the primary team/attending and other consulting services. The documented time is cumulative and includes review of patient data/exams/labs/chart review and examination of the patient on rounds and throughout the day; time is exclusive of any procedures or teaching time. 05/08/17 17:23
[2017-05-08] MEDS: Fluconazole IV 200mg/100 ml NS 100 ML IVPB SCH (18:26)
[2017-05-09] MEDS: Linezolid 600 mg in D5W 300 ml 600 MG/300 ML BAG IVPB SCH ×3 (00:11→23:37)
[2017-05-09] MEDS: Albuterol-Ipratrop 3 mg / 0.5 (3 ml) UD INH SCH ×4 (01:34→19:57)
[2017-05-09 06:44] LABS: BASO % 0.2 % (0.0-2.0); EOS # 0.1 K/uL (0.0-0.7); EOS % 0.5 % (0.0-4.0); HEMOGLOBIN 8.1 g/dL (11.0-16.0); LYMPH # 1.3 K/uL (1.0-4.3); LYMPH % 8.3 % (20.0-40.0); MEAN CORPUSCULAR HEMOGLOBIN 28.1 pg (27.0-31.0); MEAN CORPUSCULAR HGB CONC 32.7 g/dL (33.0-37.0); MEAN PLATELET VOLUME 8.6 fL (7.2-11.7); MONO # 0.6 K/uL (0.0-0.8); MONO % 4.1 % (0.0-10.0); NEUT # 13.7 K/uL (1.8-7.0); NEUT % 86.9 % (50.0-75.0); PLATELET COUNT 171 K/uL (130-400); RBC 2.89 Mil/uL (3.80-5.20); RED CELL DISTRIBUTION WIDTH 14.9 % (11.5-14.5); WHITE BLOOD COUNT 15.8 K/uL (4.8-10.8)
[2017-05-09 06:59] LABS: ALBUMIN 2.7 g/dL (3.5-5.0); ALT/SGPT 47 U/L (9-52); AST/SGOT 24 U/L (14-36); BLOOD UREA NITROGEN 30 mg/dL (7-17); CALCIUM 8.3 mg/dl (8.6-10.4); GFR AFRICAN-AMERICAN > 60; GFR NON-AFRICAN AMERICAN > 60
[2017-05-09] MEDS ORDERED: Potassium Chloride 20 mEq/15 ml LIQ UD PO ONE ×2 (07:46→10:15)
--- NOTE | 2017-05-09 08:44 | RAD ---
HISTORY: F/U ARDS COMPARISON: 05/08/2017. FINDINGS: The right IJV line terminates at the cavoatrial junction LUNGS: There is interval improved aeration in the lungs with persistent severe pulmonary venous congestion and multifocal airspace disease in the left lung. PLEURA: There are bilateral pleural effusions, moderate on the left and small on the right. No pneumothorax apparent. CARDIOVASCULAR: Normal. OSSEOUS STRUCTURES: No significant abnormalities. VISUALIZED UPPER ABDOMEN: Normal. OTHER FINDINGS: None. IMPRESSION: Interval mild improved aeration in the lungs with persistent multifocal consolidation in the left lung and moderate left pleural effusion.
[2017-05-09 08:46] LABS: ANISOCYTOSIS SLIGHT; HYPOCHROMIC SLIGHT; LYMPHOCYTE 7 % (20-40); MONOCYTE 5 % (0-10); MYELOCYTE 2 % (0-0); NEUTROPHIL 86 % (50-75); PLATELET ESTIMATE NORMAL (NORMAL); POIKILOCYTOSIS SLIGHT; TOTAL CELLS COUNTED 100
[2017-05-09 08:47] LABS: TOXIC GRANULATION PRESENT
[2017-05-09] MEDS: MethylPREDNISolone 40 mg Vial IVP SCH (09:45)
[2017-05-09] MEDS: Pantoprazole 40 mg Susp UD GT SCH (09:46)
[2017-05-09] MEDS: Enoxaparin 40 mg Syringe SC SCH (09:46)
[2017-05-09] MEDS: Potassium Chloride 20 mEq ER Tab PO SCH ×2 (09:47→17:57)
[2017-05-09] MEDS: Cefepime 1 GM in Sodium Chloride 0.9% 100 ML IVPB SCH (10:06)
--- NOTE | 2017-05-09 12:34 | CP.CCUPN ---
<Paresh Francis - Last Filed: 05/09/17 12:39> CCU Subjective - Physician Review Subjective (Free Text): patient seen and examined today extubated and tolerating well feeding is held No complaints at this time 05/09/17 12:33 Tolerating extubation saturating well on NC Tolerating diet Continue to monitor in ICU CCU Objective - Vital Signs / Intake & Output Vital Signs (Last 4 hours): Vital Signs Temp Pulse Resp BP Pulse Ox 05/09/17 12:00 97.7 F 67 26 H 96 05/09/17 11:44 68 14 149/57 L 97 05/09/17 11:00 67 18 100 05/09/17 10:44 76 20 148/60 100 05/09/17 10:00 83 21 99 05/09/17 09:46 143/46 L 05/09/17 09:45 143/46 L 05/09/17 09:44 83 20 143/46 L 97 05/09/17 09:00 85 15 97 05/09/17 08:44 82 20 168/57 H 98 Intake and Output (Last 8hrs): Intake & Output 05/08/17 05/09/17 05/09/17 22:59 06:59 14:59 Intake Total 365 809 7031 Output Total 825 1185 700 Balance -725 -685 320 Intake: Intake, IV Amount 100 400 500 Right Medial Port 200 Internal Jugular Right Proximal TLC 100 400 300 Oral 0 100 520 Output: Urine 825 1185 700 Urethral (Tay) 825 1185 700 Other: # Bowel Movements 0 0 1 - Physical Exam Head: Positive for: Atraumatic, Normocephalic Pupils: Positive for: PERRL Extroacular Muscles: Positive for: EOMI Conjunctiva: Positive for: Normal Respiratory/Chest: Positive for: Rales, Rhonchi Cardiovascular: Positive for: Regular Rate and Rhythm Abdomen: Positive for: Tenderness. Negative for: Distention Psychiatric: Positive for: Alert - Medications Active Medications: Active Medications Generic Name Dose Route Start Last Admin Trade Name Freq PRN Reason Stop Dose Admin Acetazolamide 250 mg 05/07/17 11:30 05/09/17 09:48 Diamox 250 Mg Tab PO 05/12/17 11:31 250 mg BID ALEX Administration Albuterol/Ipratropium 3 ml 04/27/17 20:00 05/09/17 07:47 Duoneb 3 Mg/0.5 Mg (3 Ml) Ud INH 3 ml RQ6 ALEX Administration Amlodipine Besylate 10 mg 05/05/17 16:15 05/09/17 10:08 Norvasc PO 10 mg DAILY ALEX Administration Enoxaparin Sodium 40 mg 05/04/17 10:00 05/09/17 09:46 Lovenox SC 40 mg DAILY ALEX Administration Furosemide 40 mg 05/08/17 01:43 05/09/17 09:45 Lasix IVP 40 mg Q12 ALEX Administration Hydralazine HCl 25 mg 05/08/17 09:41 Apresoline PO Q4 PRN Other Linezolid 600 mg in 300 mls @ 300 mls/hr 05/01/17 12:00 05/09/17 12:06 Zyvox 600mg/300ml D5w IVPB 300 mls/hr Q12H ALEX Administration Fluconazole 100 mls @ 100 mls/hr 05/04/17 19:00 05/08/17 18:26 Diflucan Iv 200 Mg/100 Ml Ns IVPB 100 mls/hr Q24H ALEX Administration Cefepime HCl 1 gm/ Sodium 100 mls @ 100 mls/hr 05/07/17 23:00 05/09/17 10:06 Chloride IVPB 100 mls/hr Q12H ALEX Administration Potassium Chloride 10 meq in 100 mls @ 100 mls/hr 05/09/17 11:30 05/09/17 11: 50 Potassium Chloride 10 Meq/100 Ml IVPB 05/09/17 13:29 100 mls/hr Q1H ALEX Administration Losartan Potassium 50 mg 05/08/17 10:00 05/09/17 09:47 Cozaar PO 50 mg DAILY ALEX Administration Methylprednisolone 40 mg 05/06/17 10:00 05/09/17 09:45 Solu-Medrol IVP 40 mg DAILY ALEX Administration Metoprolol Tartrate 25 mg 05/06/17 10:00 05/09/17 09:46 Lopressor PO 25 mg BID ALEX Administration Nicotine 1 patch 05/05/17 10:15 05/09/17 09:47 Nicoderm Cq TD 1 patch DAILY ALEX Administration Pantoprazole Sodium 40 mg 05/06/17 10:00 05/09/17 09:46 Protonix Susp GT 40 mg DAILY ALEX Administration Potassium Chloride 40 meq 05/09/17 18:00 K-Dur 20 Meq Er Tab PO 05/11/17 18:01 BID ALEX Vitamin A 1 ea 05/01/17 12:38 05/06/17 21:53 Vitamin A & D Oint Ud Foilpak TOP 1 ea Q4 PRN Administration dry lips - Patient Studies Lab Studies: Lab Studies 05/09/17 05/09/17 05/08/17 Range/Units 06:30 06:30 17:44 WBC 15.8 H (4.8-10.8) K/uL RBC 2.89 L (3.80-5.20) Mil/uL Hgb 8.1 L (11.0-16.0) g/dL Hct 24.8 L (34.0-47.0) % MCV 86.0 (81.0-99.0) fL MCH 28.1 (27.0-31.0) pg MCHC 32.7 L (33.0-37.0) g/dL RDW 14.9 H (11.5-14.5) % Plt Count 171 (130-400) K/uL MPV 8.6 (7.2-11.7) fL Neut % (Auto) 86.9 H (50.0-75.0) % Lymph % (Auto) 8.3 L (20.0-40.0) % Mccone % (Auto) 4.1 (0.0-10.0) % Eos % (Auto) 0.5 (0.0-4.0) % Baso % (Auto) 0.2 (0.0-2.0) % Neut # (Auto) 13.7 H (1.8-7.0) K/uL Lymph # (Auto) 1.3 (1.0-4.3) K/uL Mccone # (Auto) 0.6 (0.0-0.8) K/uL Eos # (Auto) 0.1 (0.0-0.7) K/uL Baso # (Auto) 0.0 (0.0-0.2) K/uL Neutrophils % (Manual) 86 H (50-75) % Lymphocytes % (Manual) 7 L (20-40) % Monocytes % (Manual) 5 (0-10) % Myelocytes % 2 H (0-0) % Toxic Granulation Present Platelet Estimate Normal (NORMAL) Hypochromasia (manual) Slight Poikilocytosis (manual Slight Anisocytosis (manual) Slight Sodium 151 H (132-148) mmol/L Potassium 3.2 L (3.6-5.2) mmol/L Chloride 110 H (98-107) mmol/L Carbon Dioxide 32 H (22-30) mmol/L Anion Gap 12 (10-20) BUN 30 H (7-17) mg/dL Creatinine 0.8 (0.7-1.2) mg/dL Est GFR ( Amer) > 60 Est GFR (Non-Af Amer) > 60 POC Glucose (mg/dL) 117 H (65-110) mg/dL Random Glucose 94 (65-105) mg/dL Calcium 8.3 L (8.6-10.4) mg/dl Phosphorus 3.1 (2.5-4.5) mg/dL Magnesium 2.2 (1.6-2.3) mg/dL Total Bilirubin 0.6 (0.2-1.3) mg/dL AST 24 (14-36) U/L ALT 47 (9-52) U/L Alkaline Phosphatase 122 (38-126) U/L Total Protein 5.5 L (6.3-8.3) g/dL Albumin 2.7 L (3.5-5.0) g/dL Globulin 2.8 (2.2-3.9) gm/dL Albumin/Globulin Ratio 1.0 (1.0-2.1) Laboratory Results - last 24 hr 05/08/17 05/09/17 05/09/17 17:44 06:30 06:30 WBC 15.8 H RBC 2.89 L Hgb 8.1 L Hct 24.8 L MCV 86.0 MCH 28.1 MCHC 32.7 L RDW 14.9 H Plt Count 171 MPV 8.6 Neut % (Auto) 86.9 H Lymph % (Auto) 8.3 L Mccone % (Auto) 4.1 Eos % (Auto) 0.5 Baso % (Auto) 0.2 Neut # (Auto) 13.7 H Lymph # (Auto) 1.3 Mccone # (Auto) 0.6 Eos # (Auto) 0.1 Baso # (Auto) 0.0 Neutrophils % (Manual) 86 H Lymphocytes % (Manual) 7 L Monocytes % (Manual) 5 Myelocytes % 2 H Toxic Granulation Present Platelet Estimate Normal Hypochromasia (manual) Slight Poikilocytosis (manual Slight Anisocytosis (manual) Slight Sodium 151 H Potassium 3.2 L Chloride 110 H Carbon Dioxide 32 H Anion Gap 12 BUN 30 H Creatinine 0.8 Est GFR ( Amer) > 60 Est GFR (Non-Af Amer) > 60 POC Glucose (mg/dL) 117 H Random Glucose 94 Calcium 8.3 L Phosphorus 3.1 Magnesium 2.2 Total Bilirubin 0.6 AST 24 ALT 47 Alkaline Phosphatase 122 Total Protein 5.5 L Albumin 2.7 L Globulin 2.8 Albumin/Globulin Ratio 1.0 Fingerstick Blood Sugar Results: 117 Critical Care Progress Note - Nutrition Nutrition: Nutrition Category Date Time Status Soft [Dysphagia/Modified Consistency Diet] [DIET] Diets 05/09/17 Breakfast Active Assessment/Plan - Assessment and Plan (Free Text) Assessment: 66yo F s/p left ovarian salpingo-oopherectomy, post-op c/b aspiration pneumonitis with subsequent ARDS. Neuro: No acute issues Pulm: Extubated, tolerating well CV: hemodynamically stable. Hem: benign cystadenoma Renal: nephrotic syndrome, Decrease lasix to 40 Q12 as patient has contraction alkalosis GI: Jevity ID: [id number] UTI, continue Zyvox, Cefepime, fluconazole DVT proph - lovenox GI proph - protonix po tay for strict I/O's during acute illness Code status - full code <Dawood Ramirez - Last Filed: 05/09/17 16:51> CCU Objective - Vital Signs / Intake & Output Vital Signs (Last 4 hours): Vital Signs Pulse Resp BP Pulse Ox 05/09/17 15:00 60 22 93 L 05/09/17 14:44 62 24 132/32 L 96 05/09/17 14:00 58 L 26 H 100 05/09/17 13:44 53 L 22 133/46 L 97 05/09/17 13:00 73 23 97 Intake and Output (Last 8hrs): Intake & Output 05/09/17 05/09/17 05/09/17 06:59 14:59 22:59 Intake Total 500 1220 10 Output Total 1185 875 50 Balance -685 345 -40 Intake: Intake, IV Amount 400 600 10 Left Antecubital 10 Right Medial Port 200 Internal Jugular Right Proximal TLC 400 400 Oral 100 620 Output: Urine 1185 875 50 Urethral (Tay) 1185 875 50 Other: # Bowel Movements 0 1 - Medications Active Medications: Active Medications Generic Name Dose Route Start Last Admin Trade Name Freq PRN Reason Stop Dose Admin Acetazolamide 250 mg 05/07/17 11:30 05/09/17 09:48 Diamox 250 Mg Tab PO 05/12/17 11:31 250 mg BID ALEX Administration Albuterol/Ipratropium 3 ml 04/27/17 20:00 05/09/17 13:46 Duoneb 3 Mg/0.5 Mg (3 Ml) Ud INH 3 ml RQ6 ALEX Administration Amlodipine Besylate 10 mg 05/05/17 16:15 05/09/17 10:08 Norvasc PO 10 mg DAILY ALEX Administration Enoxaparin Sodium 40 mg 05/04/17 10:00 05/09/17 09:46 Lovenox SC 40 mg DAILY ALEX Administration Furosemide 40 mg 05/08/17 01:43 05/09/17 09:45 Lasix IVP 40 mg Q12 ALEX Administration Guaifenesin 200 mg 05/09/17 15:03 Robitussin PO Q4H PRN Cough and congestion Hydralazine HCl 25 mg 05/08/17 09:41 Apresoline PO Q4 PRN Other Linezolid 600 mg in 300 mls @ 300 mls/hr 05/01/17 12:00 05/09/17 12:06 Zyvox 600mg/300ml D5w IVPB 300 mls/hr Q12H ALEX Administration Fluconazole 100 mls @ 100 mls/hr 05/04/17 19:00 05/08/17 18:26 Diflucan Iv 200 Mg/100 Ml Ns IVPB 100 mls/hr Q24H ALEX Administration Cefepime HCl 1 gm in 50 mls @ 100 mls/hr 05/09/17 23:00 Maxipime Iv 1 Gm Premix IVPB Q12H ALEX Losartan Potassium 50 mg 05/08/17 10:00 05/09/17 09:47 Cozaar PO 50 mg DAILY ALEX Administration Methylprednisolone 40 mg 05/06/17 10:00 05/09/17 09:45 Solu-Medrol IVP 40 mg DAILY ALEX Administration Metoprolol Tartrate 25 mg 05/06/17 10:00 05/09/17 09:46 Lopressor PO 25 mg BID ALEX Administration Nicotine 1 patch 05/05/17 10:15 05/09/17 09:47 Nicoderm Cq TD 1 patch DAILY ALEX Administration Pantoprazole Sodium 40 mg 05/06/17 10:00 05/09/17 09:46 Protonix Susp GT 40 mg DAILY ALEX Administration Potassium Chloride 40 meq 05/09/17 18:00 K-Dur 20 Meq Er Tab PO 05/11/17 18:01 BID ALEX Vitamin A 1 ea 05/01/17 12:38 05/06/17 21:53 Vitamin A & D Oint Ud Foilpak TOP 1 ea Q4 PRN Administration dry lips - Patient Studies Lab Studies: Lab Studies 05/09/17 05/09/17 05/08/17 Range/Units 06:30 06:30 17:44 WBC 15.8 H (4.8-10.8) K/uL RBC 2.89 L (3.80-5.20) Mil/uL Hgb 8.1 L (11.0-16.0) g/dL Hct 24.8 L (34.0-47.0) % MCV 86.0 (81.0-99.0) fL MCH 28.1 (27.0-31.0) pg MCHC 32.7 L (33.0-37.0) g/dL RDW 14.9 H (11.5-14.5) % Plt Count 171 (130-400) K/uL MPV 8.6 (7.2-11.7) fL Neut % (Auto) 86.9 H (50.0-75.0) % Lymph % (Auto) 8.3 L (20.0-40.0) % Mccone % (Auto) 4.1 (0.0-10.0) % Eos % (Auto) 0.5 (0.0-4.0) % Baso % (Auto) 0.2 (0.0-2.0) % Neut # (Auto) 13.7 H (1.8-7.0) K/uL Lymph # (Auto) 1.3 (1.0-4.3) K/uL Mccone # (Auto) 0.6 (0.0-0.8) K/uL Eos # (Auto) 0.1 (0.0-0.7) K/uL Baso # (Auto) 0.0 (0.0-0.2) K/uL Neutrophils % (Manual) 86 H (50-75) % Lymphocytes % (Manual) 7 L (20-40) % Monocytes % (Manual) 5 (0-10) % Myelocytes % 2 H (0-0) % Toxic Granulation Present Platelet Estimate Normal (NORMAL) Hypochromasia (manual) Slight Poikilocytosis (manual Slight Anisocytosis (manual) Slight Sodium 151 H (132-148) mmol/L Potassium 3.2 L (3.6-5.2) mmol/L Chloride 110 H (98-107) mmol/L Carbon Dioxide 32 H (22-30) mmol/L Anion Gap 12 (10-20) BUN 30 H (7-17) mg/dL Creatinine 0.8 (0.7-1.2) mg/dL Est GFR ( Amer) > 60 Est GFR (Non-Af Amer) > 60 POC Glucose (mg/dL) 117 H (65-110) mg/dL Random Glucose 94 (65-105) mg/dL Calcium 8.3 L (8.6-10.4) mg/dl Phosphorus 3.1 (2.5-4.5) mg/dL Magnesium 2.2 (1.6-2.3) mg/dL Total Bilirubin 0.6 (0.2-1.3) mg/dL AST 24 (14-36) U/L ALT 47 (9-52) U/L Alkaline Phosphatase 122 (38-126) U/L Total Protein 5.5 L (6.3-8.3) g/dL Albumin 2.7 L (3.5-5.0) g/dL Globulin 2.8 (2.2-3.9) gm/dL Albumin/Globulin Ratio 1.0 (1.0-2.1) Laboratory Results - last 24 hr 05/08/17 05/09/17 05/09/17 17:44 06:30 06:30 WBC 15.8 H RBC 2.89 L Hgb 8.1 L Hct 24.8 L MCV 86.0 MCH 28.1 MCHC 32.7 L RDW 14.9 H Plt Count 171 MPV 8.6 Neut % (Auto) 86.9 H Lymph % (Auto) 8.3 L Mccone % (Auto) 4.1 Eos % (Auto) 0.5 Baso % (Auto) 0.2 Neut # (Auto) 13.7 H Lymph # (Auto) 1.3 Mccone # (Auto) 0.6 Eos # (Auto) 0.1 Baso # (Auto) 0.0 Neutrophils % (Manual) 86 H Lymphocytes % (Manual) 7 L Monocytes % (Manual) 5 Myelocytes % 2 H Toxic Granulation Present Platelet Estimate Normal Hypochromasia (manual) Slight Poikilocytosis (manual Slight Anisocytosis (manual) Slight Sodium 151 H Potassium 3.2 L Chloride 110 H Carbon Dioxide 32 H Anion Gap 12 BUN 30 H Creatinine 0.8 Est GFR ( Amer) > 60 Est GFR (Non-Af Amer) > 60 POC Glucose (mg/dL) 117 H Random Glucose 94 Calcium 8.3 L Phosphorus 3.1 Magnesium 2.2 Total Bilirubin 0.6 AST 24 ALT 47 Alkaline Phosphatase 122 Total Protein 5.5 L Albumin 2.7 L Globulin 2.8 Albumin/Globulin Ratio 1.0 Critical Care Progress Note - Nutrition Nutrition: Nutrition Category Date Time Status Soft [Dysphagia/Modified Consistency Diet] [DIET] Diets 05/09/17 Breakfast Active Assessment/Plan (1) Acute respiratory distress syndrome (ARDS) Current Visit: Yes Status: Acute Attending/Attestation - Attestation I have personally seen and examined this patient.: Yes I have fully participated in the care of the patient.: Yes I have reviewed all pertinent clinical information: Yes Notes (Text): 05/09/17 16:49 I have seen and examined the patient. Medical records, lab studies, and imaging were reviewed by me and a management plan was formulated on multidisciplinary rounds with resident Dr. Francis. I agree with their documented assessment and plan. Patient was extubated yesterday and now able to come off of BIPAP. Clinically stable for downgrade to the floors. Critical Care Time 35 minutes. Multi-disciplinary rounds were performed with house staff, nursing, speech therapy, respiratory therapy, pharmacy and nutrition with integrated input from the primary team/attending and other consulting services. The documented time is cumulative and includes review of patient data/exams/labs/chart review and examination of the patient on rounds and throughout the day; time is exclusive of any procedures or teaching time. 05/09/17 16:49
--- NOTE | 2017-05-09 12:40 | PN ---
DATE: 05/09/2017. LOCATION: ICU 7. SUBJECTIVE: This 66-year-old female on BiPAP as well as under contact isolation, seen and examined in rounds, was supposed to have VRE in the urine. The patient appeared to be somewhat more awake and alert, and to start more oral intake today. The entire chart is reviewed including, but not limited to the most recent lab and radiology study results, current and previous medication list, current and previous medical events. No significant complain reported of chest pain, palpitation, or significant shortness of breath but generalized weakness and malaise. No reported recent episode of fever or chills. Today's lab showed white blood cell of 15.8, low hemoglobin 8.1, low hematocrit 24.8 with normal platelet count. Sodium 151, potassium 3.2, CO2 content 32 indicative of respiratory alkalosis, BUN 30, normal creatinine, calcium 8.3, total protein 5.5, albumin 2.7. Today's chest x-ray report is seen. IMPRESSION: Improvement of the multifocal pneumonia. Shantel Lakhani MD
--- NOTE | 2017-05-09 15:11 | CP.PCM.PN ---
Subjective - Date & Time of Evaluation Date of Evaluation: 05/09/17 Time of Evaluation: 15:09 - Subjective Subjective: extubated feels beter has cough Objective - Vital Signs/Intake and Output Vital Signs (last 24 hours): Temp Pulse Resp BP Pulse Ox 97.7 F 60 22 132/32 L 93 L 05/09/17 12:00 05/09/17 15:00 05/09/17 15:00 05/09/17 14:44 05/09/17 15:00 Intake and Output: 05/09/17 05/09/17 06:59 18:59 Intake Total 500 1220 Output Total 1360 925 Balance -860 295 - Medications Medications: Current Medications Acetazolamide (Diamox 250 Mg Tab) 250 mg PO BID [facility] Stop: 05/12/17 11:31 Last Admin: 05/09/17 09:48 Dose: 250 mg Albuterol/Ipratropium (Duoneb 3 Mg/0.5 Mg (3 Ml) Ud) 3 ml INH RQ6 [facility] Last Admin: 05/09/17 13:46 Dose: 3 ml Amlodipine Besylate (Norvasc) 10 mg PO DAILY [facility] Last Admin: 05/09/17 10:08 Dose: 10 mg Enoxaparin Sodium (Lovenox) 40 mg SC DAILY [facility] Last Admin: 05/09/17 09:46 Dose: 40 mg Furosemide (Lasix) 40 mg IVP Q12 [facility] Last Admin: 05/09/17 09:45 Dose: 40 mg Guaifenesin (Robitussin) 200 mg PO Q4H PRN PRN Reason: Cough and congestion Hydralazine HCl (Apresoline) 25 mg PO Q4 PRN PRN Reason: Other Linezolid (Zyvox 600mg/300ml D5w) 600 mg in 300 mls @ 300 mls/hr IVPB Q12H [facility] Last Admin: 05/09/17 12:06 Dose: 300 mls/hr Fluconazole (Diflucan Iv 200 Mg/100 Ml Ns) 100 mls @ 100 mls/hr IVPB Q24H [facility] Last Admin: 05/08/17 18:26 Dose: 100 mls/hr Cefepime HCl 1 gm/ Sodium (Chloride) 100 mls @ 100 mls/hr IVPB Q12H [facility] Last Admin: 05/09/17 10:06 Dose: 100 mls/hr Losartan Potassium (Cozaar) 50 mg PO DAILY [facility] Last Admin: 05/09/17 09:47 Dose: 50 mg Methylprednisolone (Solu-Medrol) 40 mg IVP DAILY [facility] Last Admin: 05/09/17 09:45 Dose: 40 mg Metoprolol Tartrate (Lopressor) 25 mg PO BID [facility] Last Admin: 05/09/17 09:46 Dose: 25 mg Nicotine (Nicoderm Cq) 1 patch TD DAILY [facility] Last Admin: 05/09/17 09:47 Dose: 1 patch Pantoprazole Sodium (Protonix Susp) 40 mg GT DAILY [facility] Last Admin: 05/09/17 09:46 Dose: 40 mg Potassium Chloride (K-Dur 20 Meq Er Tab) 40 meq PO BID [facility] Stop: 05/11/17 18:01 Vitamin A (Vitamin A & D Oint Ud Foilpak) 1 ea TOP Q4 PRN PRN Reason: dry lips Last Admin: 05/06/17 21:53 Dose: 1 ea - Labs Labs: 05/09/17 06:30 05/09/17 06:30 PT 11.8 SECONDS (9.7-12.2) 05/06/17 09:09 INR 1.0 05/06/17 09:09 APTT 24 SECONDS (21-34) 05/06/17 09:09 - Constitutional Appears: Non-toxic - Head Exam Head Exam: ATRAUMATIC - Eye Exam Eye Exam: Normal appearance Pupil Exam: NORMAL ACCOMODATION - ENT Exam ENT Exam: Mucous Membranes Moist - Neck Exam Neck Exam: Full ROM - Respiratory Exam Respiratory Exam: Decreased Breath Sounds, Rales - Cardiovascular Exam Cardiovascular Exam: REGULAR RHYTHM - GI/Abdominal Exam GI & Abdominal Exam: Normal Bowel Sounds - Extremities Exam Extremities Exam: Normal Inspection - Back Exam Back Exam: NORMAL INSPECTION - Neurological Exam Neurological Exam: Alert, Awake, Oriented x3 - Psychiatric Exam Psychiatric exam: Normal Affect - Skin Skin Exam: Normal Color Assessment and Plan - Assessment and Plan (Free Text) Assessment: cough s/p resp f lecocytosis s/p abd pain Plan: improving possible telemetry
[2017-05-09] MEDS: guaiFENesin 200 mg/10 ml Syrup UD PO PRN ×2 (16:00→20:28)
--- NOTE | 2017-05-09 16:09 | CP.PCM.PN ---
Subjective - Date & Time of Evaluation Date of Evaluation: 05/09/17 Time of Evaluation: 16:06 - Subjective Subjective: General surgery progress note for Dr. Nery Pulliam, PGY-1 Pt S & E at bedside. Pt resting comfortably in bed, extubated yesterday. Denies N & V, F & C, ab pain. Reports flatus. Encouraged pt to have colonoscopy- daughter at bedside. Objective - Vital Signs/Intake and Output Vital Signs (last 24 hours): Temp Pulse Resp BP Pulse Ox 97.7 F 60 22 132/32 L 93 L 05/09/17 12:00 05/09/17 15:00 05/09/17 15:00 05/09/17 14:44 05/09/17 15:00 Intake and Output: 05/09/17 05/09/17 06:59 18:59 Intake Total 500 1220 Output Total 1360 925 Balance -860 295 - Medications Medications: Current Medications Acetazolamide (Diamox 250 Mg Tab) 250 mg PO BID [facility] Stop: 05/12/17 11:31 Last Admin: 05/09/17 09:48 Dose: 250 mg Albuterol/Ipratropium (Duoneb 3 Mg/0.5 Mg (3 Ml) Ud) 3 ml INH RQ6 [facility] Last Admin: 05/09/17 13:46 Dose: 3 ml Amlodipine Besylate (Norvasc) 10 mg PO DAILY [facility] Last Admin: 05/09/17 10:08 Dose: 10 mg Enoxaparin Sodium (Lovenox) 40 mg SC DAILY [facility] Last Admin: 05/09/17 09:46 Dose: 40 mg Furosemide (Lasix) 40 mg IVP Q12 [facility] Last Admin: 05/09/17 09:45 Dose: 40 mg Guaifenesin (Robitussin) 200 mg PO Q4H PRN PRN Reason: Cough and congestion Hydralazine HCl (Apresoline) 25 mg PO Q4 PRN PRN Reason: Other Linezolid (Zyvox 600mg/300ml D5w) 600 mg in 300 mls @ 300 mls/hr IVPB Q12H [facility] Last Admin: 05/09/17 12:06 Dose: 300 mls/hr Fluconazole (Diflucan Iv 200 Mg/100 Ml Ns) 100 mls @ 100 mls/hr IVPB Q24H [facility] Last Admin: 05/08/17 18:26 Dose: 100 mls/hr Cefepime HCl (Maxipime Iv 1 Gm Premix) 1 gm in 50 mls @ 100 mls/hr IVPB Q12H [facility] Losartan Potassium (Cozaar) 50 mg PO DAILY [facility] Last Admin: 05/09/17 09:47 Dose: 50 mg Methylprednisolone (Solu-Medrol) 40 mg IVP DAILY [facility] Last Admin: 05/09/17 09:45 Dose: 40 mg Metoprolol Tartrate (Lopressor) 25 mg PO BID [facility] Last Admin: 05/09/17 09:46 Dose: 25 mg Nicotine (Nicoderm Cq) 1 patch TD DAILY [facility] Last Admin: 05/09/17 09:47 Dose: 1 patch Pantoprazole Sodium (Protonix Susp) 40 mg GT DAILY [facility] Last Admin: 05/09/17 09:46 Dose: 40 mg Potassium Chloride (K-Dur 20 Meq Er Tab) 40 meq PO BID [facility] Stop: 05/11/17 18:01 Vitamin A (Vitamin A & D Oint Ud Foilpak) 1 ea TOP Q4 PRN PRN Reason: dry lips Last Admin: 05/06/17 21:53 Dose: 1 ea - Labs Labs: 05/09/17 06:30 05/09/17 06:30 PT 11.8 SECONDS (9.7-12.2) 05/06/17 09:09 INR 1.0 05/06/17 09:09 APTT 24 SECONDS (21-34) 05/06/17 09:09 - Constitutional Appears: Non-toxic, No Acute Distress - Head Exam Head Exam: ATRAUMATIC, NORMAL INSPECTION, NORMOCEPHALIC - Eye Exam Eye Exam: EOMI, Normal appearance - ENT Exam ENT Exam: Mucous Membranes Moist, Normal Exam - Neck Exam Neck Exam: Full ROM, Normal Inspection - Respiratory Exam Respiratory Exam: NORMAL BREATHING PATTERN - Cardiovascular Exam Cardiovascular Exam: REGULAR RHYTHM, +S1, +S2 - GI/Abdominal Exam GI & Abdominal Exam: Distended (mild), Soft. absent: Firm, Guarding, Rigid, Tenderness Additional comments: surgical sites with glue in place, no erythema or drainage - Extremities Exam Extremities Exam: Normal Inspection - Neurological Exam Neurological Exam: Alert, Awake, CN II-XII Intact, Oriented x3 - Psychiatric Exam Psychiatric exam: Normal Affect, Normal Mood - Skin Skin Exam: Dry, Intact, Normal Color, Warm Assessment and Plan - Assessment and Plan (Free Text) Assessment: 66F s/p left ovarain salpingo-oopherectomy, post op complicated by aspiration pneumonitis w/ subsequent ARDS POD#9 Plan: Extubated No need for further surgical intervention Further mgmt per primary & ICU team Thank you for this consult DW attending Shasha, PGY-1
--- NOTE | 2017-05-09 17:14 | CP.PCM.PN ---
Subjective - Date & Time of Evaluation Date of Evaluation: 05/09/17 Time of Evaluation: 17:12 - Subjective Subjective: Follow up Nephrology Consultation: Assessment: Stable Pulmonary edema ? ARDS with acute respi failure metabolic alkalosis, hypernatremia due to lasix Nephrotic syndrome with 3.5 gram proteinuria and microscopic hematuria. differential include (MPGN due to Hep C, FSGS due to solitary kidney) Hypokalemia, combined respi and metabolic acidosis Acute Kidney Injury (N17.9) ? etiology. possible ATN:resolved Hyponatremia likely multi-factorial: thiazide diuretics, hypotonic fluids: improved Anemia, s/p left nephrectomy for stones active smoker HTN, hyperlipidemia, adnexal mass (cystadenofibroma) ascites, hypoalbuminemia Cecal thickening on CT scan heterogenous nodular liver with ascites and hx of Hep C ? cirrhosis Plan No acute need for renal replacement therapy at this time. UOP and s creat better Hypertension control with meds as ordered. agree with current BP meds. started on cozaar 50 mg. uptitrate dose as needed Monitor Input/Output, daily weights and renal function with basic metabolic panel continue with lasix 40 mg IV BID. also started diamox (short course) due to elevated serum bicarb and also added free water supplementation supplement electrolytes as needed. Potassium supplementation as ordered She is not a candidate for kidney biopsy at present due to solitary kidney and acute illness anemia management as per primary team Dose meds/antibiotics for improved GFR. Avoid nephrotoxins/NSAIDs Glycemic control Further work up/management as per primary team Thanks for allowing me to participate in care of your patient. Will follow patient with you. Please call if any Qs. d/w team and daughter Scott Andrade Office: [phone] reason for consult: TONA and hyponatremia HPI: Pt is a 66 F with hx of hypertension (years), smoker presented with complaints of abdomen pain and leg swelling, found to have ascites and left adnexal cystic mass, renal consult for TONA and hyponatremia. pt also reports hx of left nephrectomy for kidney stones she has een on HCTZ and also was receiving hypotonic fluids as D5/0.45% saline Denies OTC/herbal meds or NSAIDs No recent iodinated contrast exposure. No obvious episodes of low BP. ROS: Patient extubated she was better shortness of breath is better denied any nausea vomiting stomach pain went to OR 04/30/17 for expl lap s/p left oopherectomy Physical Examination: General Appearance:Appears comfortable lying in the bed on O2 via nasal cannula Vitals reviewed and noted as below Head; Atraumatic, normocephalic Neck; supple no lymphadenopathy, no thyromegaly or bruit Lungs: improved respiratory rate/effort. Breath sounds bilateral clear anteriorly. As bibasal air entry decrease and has few crackles as well Heart: normal rate. s1s2 normal. No rub or gallop. Extremities: no edema. No varicose veins Neurological: Patient is Awake alert oriented 3 follows on command no focal deficits Skin: Warm and dry. Normal turgor. No rash. Palpitation: Normal elasticity for age Abdomen: Abdomen is soft. Bowel sounds +. There is no abdominal tenderness, no guarding/rigidity no organomegaly. Psych: Normal insight and normal affect and normal mood MSK: no joint tenderness or swelling. Digits and nails normal, no deformity : kidney or bladder not palpable Labs/imaging reviewed. Past medical history, past surgical history, family history, social history, allergy reviewed and noted as below Family hx: no hx of CKD. Rest non-contributory UA: 2+ protein and 2+ blood CT: left adnexal cyst. Objective - Vital Signs/Intake and Output Vital Signs (last 24 hours): Temp Pulse Resp BP Pulse Ox 97.7 F 81 22 139/52 L 96 05/09/17 16:00 05/09/17 16:45 05/09/17 16:45 05/09/17 16:45 05/09/17 16:45 Intake and Output: 05/09/17 05/09/17 06:59 18:59 Intake Total 500 1230 Output Total 1360 925 Balance -860 305 - Medications Medications: Current Medications Acetazolamide (Diamox 250 Mg Tab) 250 mg PO BID [facility] Stop: 05/12/17 11:31 Last Admin: 05/09/17 09:48 Dose: 250 mg Albuterol/Ipratropium (Duoneb 3 Mg/0.5 Mg (3 Ml) Ud) 3 ml INH RQ6 [facility] Last Admin: 05/09/17 13:46 Dose: 3 ml Amlodipine Besylate (Norvasc) 10 mg PO DAILY [facility] Last Admin: 05/09/17 10:08 Dose: 10 mg Enoxaparin Sodium (Lovenox) 40 mg SC DAILY [facility] Last Admin: 05/09/17 09:46 Dose: 40 mg Furosemide (Lasix) 40 mg IVP Q12 [facility] Last Admin: 05/09/17 09:45 Dose: 40 mg Guaifenesin (Robitussin) 200 mg PO Q4H PRN PRN Reason: Cough and congestion Last Admin: 05/09/17 16:00 Dose: 200 mg Hydralazine HCl (Apresoline) 25 mg PO Q4 PRN PRN Reason: Other Linezolid (Zyvox 600mg/300ml D5w) 600 mg in 300 mls @ 300 mls/hr IVPB Q12H [facility] Last Admin: 05/09/17 12:06 Dose: 300 mls/hr Fluconazole (Diflucan Iv 200 Mg/100 Ml Ns) 100 mls @ 100 mls/hr IVPB Q24H [facility] Last Admin: 05/08/17 18:26 Dose: 100 mls/hr Cefepime HCl (Maxipime Iv 1 Gm Premix) 1 gm in 50 mls @ 100 mls/hr IVPB Q12H [facility] Losartan Potassium (Cozaar) 50 mg PO DAILY [facility] Last Admin: 05/09/17 09:47 Dose: 50 mg Methylprednisolone (Solu-Medrol) 40 mg IVP DAILY [facility] Last Admin: 05/09/17 09:45 Dose: 40 mg Metoprolol Tartrate (Lopressor) 25 mg PO BID [facility] Last Admin: 05/09/17 09:46 Dose: 25 mg Nicotine (Nicoderm Cq) 1 patch TD DAILY [facility] Last Admin: 05/09/17 09:47 Dose: 1 patch Pantoprazole Sodium (Protonix Susp) 40 mg GT DAILY [facility] Last Admin: 05/09/17 09:46 Dose: 40 mg Potassium Chloride (K-Dur 20 Meq Er Tab) 40 meq PO BID [facility] Stop: 05/11/17 18:01 Vitamin A (Vitamin A & D Oint Ud Foilpak) 1 ea TOP Q4 PRN PRN Reason: dry lips Last Admin: 05/06/17 21:53 Dose: 1 ea - Labs Labs: 05/09/17 06:30 05/09/17 06:30 PT 11.8 SECONDS (9.7-12.2) 05/06/17 09:09 INR 1.0 05/06/17 09:09 APTT 24 SECONDS (21-34) 05/06/17 09:09
[2017-05-09] MEDS: Fluconazole IV 200mg/100 ml NS 100 ML IVPB SCH (17:59)
--- NOTE | 2017-05-09 18:14 | CP.PCM.PN ---
Subjective - Date & Time of Evaluation Date of Evaluation: 05/09/17 Time of Evaluation: 07:00 - Subjective Subjective: seen in icu extubated awake alert nad iv antibiotics in progress Objective - Vital Signs/Intake and Output Vital Signs (last 24 hours): Temp Pulse Resp BP Pulse Ox 97.7 F 81 22 149/49 L 96 05/09/17 16:00 05/09/17 16:45 05/09/17 16:45 05/09/17 17:57 05/09/17 16:45 Intake and Output: 05/09/17 05/09/17 06:59 18:59 Intake Total 500 1230 Output Total 1360 925 Balance -860 305 - Medications Medications: Current Medications Acetazolamide (Diamox 250 Mg Tab) 250 mg PO BID [facility] Stop: 05/12/17 11:31 Last Admin: 05/09/17 17:57 Dose: 250 mg Albuterol/Ipratropium (Duoneb 3 Mg/0.5 Mg (3 Ml) Ud) 3 ml INH RQ6 [facility] Last Admin: 05/09/17 13:46 Dose: 3 ml Amlodipine Besylate (Norvasc) 10 mg PO DAILY [facility] Last Admin: 05/09/17 10:08 Dose: 10 mg Enoxaparin Sodium (Lovenox) 40 mg SC DAILY [facility] Last Admin: 05/09/17 09:46 Dose: 40 mg Furosemide (Lasix) 40 mg IVP Q12 [facility] Last Admin: 05/09/17 09:45 Dose: 40 mg Guaifenesin (Robitussin) 200 mg PO Q4H PRN PRN Reason: Cough and congestion Last Admin: 05/09/17 16:00 Dose: 200 mg Hydralazine HCl (Apresoline) 25 mg PO Q4 PRN PRN Reason: Other Linezolid (Zyvox 600mg/300ml D5w) 600 mg in 300 mls @ 300 mls/hr IVPB Q12H [facility] Last Admin: 05/09/17 12:06 Dose: 300 mls/hr Fluconazole (Diflucan Iv 200 Mg/100 Ml Ns) 100 mls @ 100 mls/hr IVPB Q24H [facility] Last Admin: 05/09/17 17:59 Dose: 100 mls/hr Cefepime HCl (Maxipime Iv 1 Gm Premix) 1 gm in 50 mls @ 100 mls/hr IVPB Q12H [facility] Losartan Potassium (Cozaar) 50 mg PO DAILY [facility] Last Admin: 05/09/17 09:47 Dose: 50 mg Methylprednisolone (Solu-Medrol) 40 mg IVP DAILY [facility] Last Admin: 05/09/17 09:45 Dose: 40 mg Metoprolol Tartrate (Lopressor) 25 mg PO BID [facility] Last Admin: 05/09/17 17:57 Dose: 25 mg Nicotine (Nicoderm Cq) 1 patch TD DAILY [facility] Last Admin: 05/09/17 09:47 Dose: 1 patch Pantoprazole Sodium (Protonix Susp) 40 mg GT DAILY [facility] Last Admin: 05/09/17 09:46 Dose: 40 mg Potassium Chloride (K-Dur 20 Meq Er Tab) 40 meq PO BID [facility] Stop: 05/11/17 18:01 Last Admin: 05/09/17 17:57 Dose: 40 meq Vitamin A (Vitamin A & D Oint Ud Foilpak) 1 ea TOP Q4 PRN PRN Reason: dry lips Last Admin: 05/06/17 21:53 Dose: 1 ea - Labs Labs: 05/09/17 06:30 05/09/17 06:30 PT 11.8 SECONDS (9.7-12.2) 05/06/17 09:09 INR 1.0 05/06/17 09:09 APTT 24 SECONDS (21-34) 05/06/17 09:09 - Constitutional Appears: Non-toxic, Chronically Ill - Head Exam Head Exam: NORMOCEPHALIC - Eye Exam Eye Exam: PERRL - ENT Exam ENT Exam: Mucous Membranes Dry - Neck Exam Neck Exam: absent: Lymphadenopathy - Respiratory Exam Respiratory Exam: Decreased Breath Sounds - Cardiovascular Exam Cardiovascular Exam: REGULAR RHYTHM - GI/Abdominal Exam GI & Abdominal Exam: Distended, Soft - Rectal Exam Rectal Exam: Deferred - Exam Exam: NORMAL INSPECTION - Extremities Exam Extremities Exam: absent: Pedal Edema - Back Exam Back Exam: absent: CVA tenderness (L), CVA tenderness (R) - Neurological Exam Neurological Exam: Alert, Awake, Oriented x3 Neuro motor strength exam: Left Upper Extremity: 4, Right Upper Extremity: 4, Left Lower Extremity: 4, Right Lower Extremity: 4 - Psychiatric Exam Psychiatric exam: Depressed - Skin Skin Exam: Dry Assessment and Plan (1) Pelvic mass in female Status: Acute (2) Abdominal pain Status: Acute (3) Leukocytosis Status: Acute - Assessment and Plan (Free Text) Assessment: cont iv antibiotics, wound care
[2017-05-09] MEDS: Cefepime IV 1 gm in Dextrose 1 GM/50 ML BAG IVPB SCH (23:31)
[2017-05-10] MEDS: Albuterol-Ipratrop 3 mg / 0.5 (3 ml) UD INH SCH ×4 (01:35→20:36)
--- NOTE | 2017-05-10 08:48 | PN ---
DATE: The patient is on ventilator, supportive care. The patient was given CPAP and support. The patient is showing improvement with continued breathing. Avel Langley MD
--- NOTE | 2017-05-10 08:50 | PN ---
DATE: 05/09/2017. The patient extubated, appeared to be much improved. Continue O2 bronchodilators, antibiotics. Avel Langley MD
[2017-05-10] MEDS: Pantoprazole 40 mg Susp UD GT SCH (09:34)
[2017-05-10] MEDS: MethylPREDNISolone 40 mg Vial IVP SCH (09:34)
[2017-05-10] MEDS: Potassium Chloride 20 mEq ER Tab PO SCH ×2 (09:34→17:41)
[2017-05-10] MEDS: Enoxaparin 40 mg Syringe SC SCH (09:35)
[2017-05-10] MEDS: Cefepime IV 1 gm in Dextrose 1 GM/50 ML BAG IVPB SCH (10:52)
[2017-05-10] MEDS: Linezolid 600 mg in D5W 300 ml 600 MG/300 ML BAG IVPB SCH (12:34)
[2017-05-10 13:46] LABS: BASO % 0.2 % (0.0-2.0); EOS % 0.2 % (0.0-4.0); HEMOGLOBIN 8.7 g/dL (11.0-16.0); LYMPH # 0.5 K/uL (1.0-4.3); LYMPH % 2.7 % (20.0-40.0); MEAN CELL VOLUME 86.3 fL (81.0-99.0); MEAN CORPUSCULAR HGB CONC 32.4 g/dL (33.0-37.0); MONO # 0.3 K/uL (0.0-0.8); MONO % 1.6 % (0.0-10.0); NEUT # 18.4 K/uL (1.8-7.0); NEUT % 95.3 % (50.0-75.0); NRBC % 0.1 % (0.0-2.0); PLATELET COUNT 186 K/uL (130-400); WHITE BLOOD COUNT 19.3 K/uL (4.8-10.8)
[2017-05-10 13:59] LABS: BLOOD UREA NITROGEN 31 mg/dL (7-17); CALCIUM 8.5 mg/dl (8.6-10.4); GFR AFRICAN-AMERICAN > 60; GFR NON-AFRICAN AMERICAN > 60
[2017-05-10 14:41] LABS: LYMPHOCYTE 4 % (20-40); MONOCYTE 1 % (0-10); NEUTROPHIL 95 % (50-75); PLATELET ESTIMATE NORMAL (NORMAL); TOTAL CELLS COUNTED 100
[2017-05-10 14:42] LABS: ANISOCYTOSIS SLIGHT; HYPOCHROMIC SLIGHT
--- NOTE | 2017-05-10 15:30 | CP.PCM.PN ---
Subjective - Date & Time of Evaluation Date of Evaluation: 05/10/17 Time of Evaluation: 15:29 - Subjective Subjective: Follow up Nephrology Consultation: Assessment: Stable Pulmonary edema ? ARDS with acute respi failure metabolic alkalosis, hypernatremia due to lasix Nephrotic syndrome with 3.5 gram proteinuria and microscopic hematuria. differential include (MPGN due to Hep C, FSGS due to solitary kidney) Hypokalemia, combined respi and metabolic acidosis Acute Kidney Injury (N17.9) ? etiology. possible ATN:resolved Hyponatremia likely multi-factorial: thiazide diuretics, hypotonic fluids: improved Anemia, s/p left nephrectomy for stones active smoker HTN, hyperlipidemia, adnexal mass (cystadenofibroma) ascites, hypoalbuminemia Cecal thickening on CT scan heterogenous nodular liver with ascites and hx of Hep C ? cirrhosis Plan No acute need for renal replacement therapy at this time. UOP and s creat better Hypertension control with meds as ordered. agree with current BP meds. started on cozaar 50 mg. uptitrate dose as needed Monitor Input/Output, daily weights and renal function with basic metabolic panel continue with lasix 40 mg IV BID. supplement electrolytes as needed. Potassium supplementation as ordered She is not a candidate for kidney biopsy at present due to solitary kidney and acute illness anemia management as per primary team Dose meds/antibiotics for improved GFR. Avoid nephrotoxins/NSAIDs Glycemic control Further work up/management as per primary team Thanks for allowing me to participate in care of your patient. Will follow patient with you. Please call if any Qs. d/w team and daughter Scott Andrade Office: [phone] reason for consult: TONA and hyponatremia HPI: Pt is a 66 F with hx of hypertension (years), smoker presented with complaints of abdomen pain and leg swelling, found to have ascites and left adnexal cystic mass, renal consult for TONA and hyponatremia. pt also reports hx of left nephrectomy for kidney stones she has een on HCTZ and also was receiving hypotonic fluids as D5/0.45% saline Denies OTC/herbal meds or NSAIDs No recent iodinated contrast exposure. No obvious episodes of low BP. ROS: Patient extubated she was better shortness of breath is better denied any nausea vomiting stomach pain went to OR 04/30/17 for expl lap s/p left oopherectomy Physical Examination: General Appearance:Appears comfortable lying in the bed on O2 via nasal cannula Vitals reviewed and noted as below Head; Atraumatic, normocephalic Neck; supple no lymphadenopathy, no thyromegaly or bruit Lungs: improved respiratory rate/effort. Breath sounds bilateral clear anteriorly. As bibasal air entry decrease and has few crackles as well Heart: normal rate. s1s2 normal. No rub or gallop. Extremities: no edema. No varicose veins Neurological: Patient is Awake alert oriented 3 follows on command no focal deficits Skin: Warm and dry. Normal turgor. No rash. Palpitation: Normal elasticity for age Abdomen: Abdomen is soft. Bowel sounds +. There is no abdominal tenderness, no guarding/rigidity no organomegaly. Psych: Normal insight and normal affect and normal mood MSK: no joint tenderness or swelling. Digits and nails normal, no deformity : kidney or bladder not palpable Labs/imaging reviewed. Past medical history, past surgical history, family history, social history, allergy reviewed and noted as below Family hx: no hx of CKD. Rest non-contributory UA: 2+ protein and 2+ blood CT: left adnexal cyst. Objective - Vital Signs/Intake and Output Vital Signs (last 24 hours): Temp Pulse Resp BP Pulse Ox 97.6 F 71 23 129/47 L 94 L 05/10/17 04:00 05/10/17 11:00 05/10/17 11:00 05/10/17 09:37 05/10/17 10:00 Intake and Output: 05/10/17 05/10/17 06:59 18:59 Intake Total 640 Output Total 600 Balance 40 - Medications Medications: Current Medications Albuterol/Ipratropium (Duoneb 3 Mg/0.5 Mg (3 Ml) Ud) 3 ml INH RQ6 [facility] Last Admin: 05/10/17 13:39 Dose: 3 ml Amlodipine Besylate (Norvasc) 10 mg PO DAILY [facility] Last Admin: 05/10/17 09:37 Dose: 10 mg Enoxaparin Sodium (Lovenox) 40 mg SC DAILY [facility] Last Admin: 05/10/17 09:35 Dose: 40 mg Furosemide (Lasix) 40 mg IVP Q12 [facility] Last Admin: 05/10/17 09:37 Dose: 40 mg Guaifenesin (Robitussin) 200 mg PO Q4H PRN PRN Reason: Cough and congestion Hydralazine HCl (Apresoline) 25 mg PO Q4 PRN PRN Reason: Other Linezolid (Zyvox 600mg/300ml D5w) 600 mg in 300 mls @ 300 mls/hr IVPB Q12H [facility] Last Admin: 05/10/17 12:34 Dose: 300 mls/hr Fluconazole (Diflucan Iv 200 Mg/100 Ml Ns) 100 mls @ 100 mls/hr IVPB Q24H [facility] Last Admin: 05/09/17 17:59 Dose: 100 mls/hr Cefepime HCl (Maxipime Iv 1 Gm Premix) 1 gm in 50 mls @ 100 mls/hr IVPB Q12H [facility] Last Admin: 05/10/17 10:52 Dose: 100 mls/hr Losartan Potassium (Cozaar) 50 mg PO DAILY [facility] Last Admin: 05/10/17 09:35 Dose: 50 mg Methylprednisolone (Solu-Medrol) 40 mg IVP DAILY [facility] Last Admin: 05/10/17 09:34 Dose: 40 mg Metoprolol Tartrate (Lopressor) 25 mg PO BID [facility] Last Admin: 05/10/17 09:36 Dose: 25 mg Nicotine (Nicoderm Cq) 1 patch TD DAILY [facility] Last Admin: 05/10/17 09:35 Dose: 1 patch Pantoprazole Sodium (Protonix Susp) 40 mg GT DAILY [facility] Last Admin: 05/10/17 09:34 Dose: 40 mg Potassium Chloride (K-Dur 20 Meq Er Tab) 20 meq PO BID [facility] Stop: 05/12/17 18:01 Vitamin A (Vitamin A & D Oint Ud Foilpak) 1 ea TOP Q4 PRN PRN Reason: dry lips Last Admin: 05/06/17 21:53 Dose: 1 ea - Labs Labs: 05/10/17 13:42 05/10/17 13:42 PT 11.8 SECONDS (9.7-12.2) 05/06/17 09:09 INR 1.0 05/06/17 09:09 APTT 24 SECONDS (21-34) 05/06/17 09:09
--- NOTE | 2017-05-10 16:33 | CP.PCM.PN ---
Subjective - Date & Time of Evaluation Date of Evaluation: 05/10/17 Time of Evaluation: 16:30 - Subjective Subjective: oob in chaire no pain went to bath room few times today Objective - Vital Signs/Intake and Output Vital Signs (last 24 hours): Temp Pulse Resp BP Pulse Ox 97.6 F 71 23 129/47 L 94 L 05/10/17 04:00 05/10/17 11:00 05/10/17 11:00 05/10/17 09:37 05/10/17 10:00 Intake and Output: 05/10/17 05/10/17 06:59 18:59 Intake Total 640 Output Total 600 Balance 40 - Medications Medications: Current Medications Albuterol/Ipratropium (Duoneb 3 Mg/0.5 Mg (3 Ml) Ud) 3 ml INH RQ6 [facility] Last Admin: 05/10/17 13:39 Dose: 3 ml Amlodipine Besylate (Norvasc) 10 mg PO DAILY [facility] Last Admin: 05/10/17 09:37 Dose: 10 mg Enoxaparin Sodium (Lovenox) 40 mg SC DAILY [facility] Last Admin: 05/10/17 09:35 Dose: 40 mg Furosemide (Lasix) 40 mg IVP Q12 [facility] Last Admin: 05/10/17 09:37 Dose: 40 mg Guaifenesin (Robitussin) 200 mg PO Q4H PRN PRN Reason: Cough and congestion Hydralazine HCl (Apresoline) 25 mg PO Q4 PRN PRN Reason: Other Linezolid (Zyvox 600mg/300ml D5w) 600 mg in 300 mls @ 300 mls/hr IVPB Q12H [facility] Last Admin: 05/10/17 12:34 Dose: 300 mls/hr Fluconazole (Diflucan Iv 200 Mg/100 Ml Ns) 100 mls @ 100 mls/hr IVPB Q24H [facility] Last Admin: 05/09/17 17:59 Dose: 100 mls/hr Cefepime HCl (Maxipime Iv 1 Gm Premix) 1 gm in 50 mls @ 100 mls/hr IVPB Q12H [facility] Last Admin: 05/10/17 10:52 Dose: 100 mls/hr Losartan Potassium (Cozaar) 50 mg PO DAILY [facility] Last Admin: 05/10/17 09:35 Dose: 50 mg Methylprednisolone (Solu-Medrol) 40 mg IVP DAILY [facility] Last Admin: 05/10/17 09:34 Dose: 40 mg Metoprolol Tartrate (Lopressor) 25 mg PO BID [facility] Last Admin: 05/10/17 09:36 Dose: 25 mg Nicotine (Nicoderm Cq) 1 patch TD DAILY [facility] Last Admin: 05/10/17 09:35 Dose: 1 patch Pantoprazole Sodium (Protonix Susp) 40 mg GT DAILY [facility] Last Admin: 05/10/17 09:34 Dose: 40 mg Potassium Chloride (K-Dur 20 Meq Er Tab) 20 meq PO BID [facility] Stop: 05/12/17 18:01 Vitamin A (Vitamin A & D Oint Ud Foilpak) 1 ea TOP Q4 PRN PRN Reason: dry lips Last Admin: 05/06/17 21:53 Dose: 1 ea - Labs Labs: 05/10/17 13:42 05/10/17 13:42 PT 11.8 SECONDS (9.7-12.2) 05/06/17 09:09 INR 1.0 05/06/17 09:09 APTT 24 SECONDS (21-34) 05/06/17 09:09 - Constitutional Appears: Non-toxic - Head Exam Head Exam: NORMAL INSPECTION - Eye Exam Eye Exam: Normal appearance Pupil Exam: NORMAL ACCOMODATION - ENT Exam ENT Exam: Normal Exam - Neck Exam Neck Exam: Full ROM - Respiratory Exam Respiratory Exam: Clear to Ausculation Bilateral - Cardiovascular Exam Cardiovascular Exam: REGULAR RHYTHM - GI/Abdominal Exam GI & Abdominal Exam: Tenderness - Extremities Exam Extremities Exam: Normal Inspection - Back Exam Back Exam: NORMAL INSPECTION - Neurological Exam Neurological Exam: Alert, Awake, Normal Gait, Oriented x3 - Psychiatric Exam Psychiatric exam: Normal Affect - Skin Skin Exam: Normal Color Assessment and Plan - Assessment and Plan (Free Text) Assessment: s/p abd surgery s/p resp f Plan: as per icu
[2017-05-10] MEDS: Fluconazole IV 200mg/100 ml NS 100 ML IVPB SCH (18:00)
--- NOTE | 2017-05-10 18:10 | PN ---
DATE: LOCATION: ICU 7. SUBJECTIVE: This is a 66-year-old female seen and examined in rounds without significant clinical changes. No reported active bleeding, more stable clinically and more awake. The patient reported to have greenish loose fecal material, but no reported active bleeding. The entire chart is reviewed including, but not limited to the most recent lab and radiology study results, current and the previous medication list, current and the previous medical events. LABORATORY DATA: Today's lab is still pending; however, the patient reported to have leukocytosis with low hemoglobin and hematocrit, but normal platelet count with increased sodium, low potassium, and increased BUN with normal creatinine with low calcium, with low albumin, and low total protein. Most recent chest x-ray done yesterday, report is seen with mild improvement of the persistent multifocal pneumonia with moderate left pleural effusion. PHYSICAL EXAMINATION: GENERAL: A 66-year-old female, well awake, alert. VITAL SIGNS: Afebrile, with pulse of 74, respiratory rate 20 to 24, blood pressure of 136/56. HEENT: Showed pale, dry oral mucous membrane, nonicteric sclerae. LUNGS: Few scattered crepitation, decreased air entry at bases. HEART: Positive S1 and S2. ABDOMEN: Soft with mild generalized distention and tenderness. Bowel sounds are hypoactive, covered with clean dressing. EXTREMITIES: Significant clubbing and cyanosis. IMPRESSION: 1. Known history of but not limited to hypertension, hyperlipidemia, hepatitis C, viral skin infection, peptic ulcer disease. 2. Renal insufficiency with dehydration. 3. Adrenal mass, treated surgically. 4. Electrolyte imbalance with hypokalemia, hypocalcemia. 5. Anemia, most likely secondary to above. 6. Pneumonia with leukocytosis. SUGGESTIONS: 1. Continue current management. 2. Advance diet gradually. 3. Peripheral hyperalimentation. 4. Further recommendations to follow. Shantel Lakhani MD
[2017-05-11] MEDS: Cefepime IV 1 gm in Dextrose 1 GM/50 ML BAG IVPB SCH ×3 (00:18→22:23)
[2017-05-11] MEDS: Linezolid 600 mg in D5W 300 ml 600 MG/300 ML BAG IVPB SCH ×2 (00:19→12:00)
[2017-05-11] MEDS: Albuterol-Ipratrop 3 mg / 0.5 (3 ml) UD INH SCH ×2 (02:00→07:27)
[2017-05-11 07:30] LABS: BLOOD UREA NITROGEN 32 mg/dL (7-17); CALCIUM 8.5 mg/dl (8.6-10.4); GFR AFRICAN-AMERICAN > 60; GFR NON-AFRICAN AMERICAN > 60
[2017-05-11 07:32] LABS: BASO % 0.1 % (0.0-2.0); EOS % 0.3 % (0.0-4.0); HEMOGLOBIN 8.1 g/dL (11.0-16.0); LYMPH # 1.5 K/uL (1.0-4.3); LYMPH % 10.4 % (20.0-40.0); MEAN CELL VOLUME 85.5 fL (81.0-99.0); MEAN CORPUSCULAR HEMOGLOBIN 28.3 pg (27.0-31.0); MEAN CORPUSCULAR HGB CONC 33.1 g/dL (33.0-37.0); MEAN PLATELET VOLUME 9.2 fL (7.2-11.7); MONO # 0.8 K/uL (0.0-0.8); MONO % 5.4 % (0.0-10.0); NEUT # 12.4 K/uL (1.8-7.0); NEUT % 83.8 % (50.0-75.0); RBC 2.84 Mil/uL (3.80-5.20); RED CELL DISTRIBUTION WIDTH 14.8 % (11.5-14.5); WHITE BLOOD COUNT 14.8 K/uL (4.8-10.8)
--- NOTE | 2017-05-11 07:54 | PN ---
DATE: 05/10/2017 The patient is improving, shortness of breath, O2. Out of bed with good recovery. Avel Langley MD
[2017-05-11] MEDS: Pantoprazole 40 mg EC Tab PO SCH (09:17)
[2017-05-11] MEDS: Potassium Chloride 20 mEq ER Tab PO SCH ×2 (09:18→18:17)
[2017-05-11] MEDS: Enoxaparin 40 mg Syringe SC SCH (09:24)
[2017-05-11] MEDS: MethylPREDNISolone 40 mg Vial IVP SCH (09:24)
--- NOTE | 2017-05-11 11:32 | CP.PCM.PN ---
Subjective - Date & Time of Evaluation Date of Evaluation: 05/11/17 Time of Evaluation: 11:29 - Subjective Subjective: Follow up Nephrology Consultation: Assessment: Stable Pulmonary edema ? ARDS Nephrotic syndrome with 3.5 gram proteinuria and microscopic hematuria. differential include (MPGN due to Hep C, FSGS due to solitary kidney) Hypokalemia, combined respi and metabolic acidosis metabolic alkalosis, hypernatremia due to lasix Acute Kidney Injury (N17.9) ? etiology. possible ATN:resolved Hyponatremia likely multi-factorial: thiazide diuretics, hypotonic fluids: improved Anemia, s/p left nephrectomy for stones active smoker HTN, hyperlipidemia, adnexal mass (cystadenofibroma) ascites, hypoalbuminemia Cecal thickening on CT scan heterogenous nodular liver with ascites and hx of Hep C ? cirrhosis Plan No acute need for renal replacement therapy at this time. UOP and s creat better /stable Hypertension control with meds as ordered. agree with current BP meds. started on cozaar 50 mg. uptitrate dose as needed Monitor Input/Output, daily weights and renal function with basic metabolic panel continue with lasix 40 mg IV BID. switch to PO once respi status better supplement electrolytes as needed. Potassium supplementation as ordered She is not a candidate for kidney biopsy at present due to solitary kidney and acute illness anemia management as per primary team ID follow up for chronic Hep C treatment Dose meds/antibiotics for improved GFR. Avoid nephrotoxins/NSAIDs Glycemic control Further work up/management as per primary team repeat CXR and labs in AM. repeat urine pro/cr Thanks for allowing me to participate in care of your patient. Will follow patient with you. Please call if any Qs. Dr Scott Andrade Office: [phone] reason for consult: TONA and hyponatremia HPI: Pt is a 66 F with hx of hypertension (years), smoker presented with complaints of abdomen pain and leg swelling, found to have ascites and left adnexal cystic mass, renal consult for TONA and hyponatremia. pt also reports hx of left nephrectomy for kidney stones she has een on HCTZ and also was receiving hypotonic fluids as D5/0.45% saline Denies OTC/herbal meds or NSAIDs No recent iodinated contrast exposure. No obvious episodes of low BP. ROS: Patient extubated she feels better shortness of breath is better denied any nausea vomiting stomach pain 04/30/17 for expl lap s/p left oopherectomy Physical Examination: General Appearance:Appears comfortable on O2 via nasal cannula Vitals reviewed and noted as below Head; Atraumatic, normocephalic Neck; supple no lymphadenopathy, no thyromegaly or bruit Lungs: improved respiratory rate/effort. Breath sounds bilateral clear anteriorly. As bibasal air entry decrease and has few crackles as well Heart: normal rate. s1s2 normal. No rub or gallop. Extremities: no edema. No varicose veins Neurological: Patient is Awake alert oriented 3 follows on command no focal deficits Skin: Warm and dry. Normal turgor. No rash. Palpitation: Normal elasticity for age Abdomen: Abdomen is soft. Bowel sounds +. There is no abdominal tenderness, no guarding/rigidity no organomegaly. Psych: Normal insight and normal affect and normal mood MSK: no joint tenderness or swelling. Digits and nails normal, no deformity : kidney or bladder not palpable Labs/imaging reviewed. Past medical history, past surgical history, family history, social history, allergy reviewed and noted as below Family hx: no hx of CKD. Rest non-contributory UA: 2+ protein and 2+ blood CT: left adnexal cyst. Objective - Vital Signs/Intake and Output Vital Signs (last 24 hours): Temp Pulse Resp BP Pulse Ox 98.1 F 71 20 136/73 95 05/11/17 08:00 05/11/17 08:00 05/11/17 08:00 05/11/17 09:18 05/11/17 08:00 Intake and Output: 05/11/17 05/11/17 06:59 18:59 Intake Total 690 Output Total 1300 Balance -610 - Medications Medications: Current Medications Amlodipine Besylate (Norvasc) 10 mg PO DAILY [facility] Last Admin: 05/11/17 09:17 Dose: 10 mg Furosemide (Lasix) 40 mg IVP Q12 [facility] Last Admin: 05/11/17 09:18 Dose: 40 mg Guaifenesin (Robitussin) 200 mg PO Q4H PRN PRN Reason: Cough and congestion Hydralazine HCl (Apresoline) 25 mg PO Q4 PRN PRN Reason: Other Linezolid (Zyvox 600mg/300ml D5w) 600 mg in 300 mls @ 300 mls/hr IVPB Q12H [facility] Last Admin: 05/11/17 00:19 Dose: 300 mls/hr Fluconazole (Diflucan Iv 200 Mg/100 Ml Ns) 100 mls @ 100 mls/hr IVPB Q24H [facility] Last Admin: 05/10/17 18:00 Dose: 100 mls/hr Cefepime HCl (Maxipime Iv 1 Gm Premix) 1 gm in 50 mls @ 100 mls/hr IVPB Q12H [facility] Last Admin: 05/11/17 10:49 Dose: 100 mls/hr Losartan Potassium (Cozaar) 50 mg PO DAILY [facility] Last Admin: 05/11/17 09:18 Dose: 50 mg Methylprednisolone (Solu-Medrol) 40 mg IVP DAILY [facility] Last Admin: 05/11/17 09:24 Dose: 40 mg Metoprolol Tartrate (Lopressor) 25 mg PO BID [facility] Last Admin: 05/11/17 09:17 Dose: 25 mg Nicotine (Nicoderm Cq) 1 patch TD DAILY [facility] Last Admin: 05/11/17 09:18 Dose: 1 patch Pantoprazole Sodium (Protonix Ec Tab) 40 mg PO DAILY [facility] Last Admin: 05/11/17 09:17 Dose: 40 mg Potassium Chloride (K-Dur 20 Meq Er Tab) 20 meq PO BID [facility] Stop: 05/12/17 18:01 Last Admin: 05/11/17 09:18 Dose: 20 meq Vitamin A (Vitamin A & D Oint Ud Foilpak) 1 ea TOP Q4 PRN PRN Reason: dry lips Last Admin: 05/06/17 21:53 Dose: 1 ea - Labs Labs: 05/11/17 07:12 05/11/17 07:12 PT 11.8 SECONDS (9.7-12.2) 05/06/17 09:09 INR 1.0 05/06/17 09:09 APTT 24 SECONDS (21-34) 05/06/17 09:09
[2017-05-11] MEDS: Fluconazole IV 200mg/100 ml NS 100 ML IVPB SCH (18:17)
--- NOTE | 2017-05-11 18:47 | CP.PCM.PN ---
Subjective - Date & Time of Evaluation Date of Evaluation: 05/11/17 Time of Evaluation: 09:00 - Subjective Subjective: persistent multi focal consolifdations no new fever cultures reviewed awake alert denies chest pain 'less coiugh Objective - Vital Signs/Intake and Output Vital Signs (last 24 hours): Temp Pulse Resp BP Pulse Ox 98.4 F 73 18 129/68 94 L 05/11/17 16:00 05/11/17 16:51 05/11/17 16:00 05/11/17 18:15 05/11/17 16:00 Intake and Output: 05/11/17 05/11/17 06:59 18:59 Intake Total 690 250 Output Total 1300 Balance -610 250 - Medications Medications: Current Medications Amlodipine Besylate (Norvasc) 10 mg PO DAILY [facility] Last Admin: 05/11/17 09:17 Dose: 10 mg Furosemide (Lasix) 40 mg IVP Q12 [facility] Last Admin: 05/11/17 09:18 Dose: 40 mg Guaifenesin (Robitussin) 200 mg PO Q4H PRN PRN Reason: Cough and congestion Hydralazine HCl (Apresoline) 25 mg PO Q4 PRN PRN Reason: Other Linezolid (Zyvox 600mg/300ml D5w) 600 mg in 300 mls @ 300 mls/hr IVPB Q12H [facility] Last Admin: 05/11/17 12:00 Dose: 300 mls/hr Fluconazole (Diflucan Iv 200 Mg/100 Ml Ns) 100 mls @ 100 mls/hr IVPB Q24H [facility] Last Admin: 05/11/17 18:17 Dose: 100 mls/hr Cefepime HCl (Maxipime Iv 1 Gm Premix) 1 gm in 50 mls @ 100 mls/hr IVPB Q12H [facility] Last Admin: 05/11/17 10:49 Dose: 100 mls/hr Losartan Potassium (Cozaar) 50 mg PO DAILY [facility] Last Admin: 05/11/17 09:18 Dose: 50 mg Methylprednisolone (Solu-Medrol) 40 mg IVP DAILY [facility] Last Admin: 05/11/17 09:24 Dose: 40 mg Metoprolol Tartrate (Lopressor) 25 mg PO BID [facility] Last Admin: 05/11/17 18:15 Dose: 25 mg Nicotine (Nicoderm Cq) 1 patch TD DAILY [facility] Last Admin: 05/11/17 09:18 Dose: 1 patch Pantoprazole Sodium (Protonix Ec Tab) 40 mg PO DAILY [facility] Last Admin: 05/11/17 09:17 Dose: 40 mg Potassium Chloride (K-Dur 20 Meq Er Tab) 20 meq PO BID [facility] Stop: 05/12/17 18:01 Last Admin: 05/11/17 18:17 Dose: 20 meq Vitamin A (Vitamin A & D Oint Ud Foilpak) 1 ea TOP Q4 PRN PRN Reason: dry lips Last Admin: 05/06/17 21:53 Dose: 1 ea - Labs Labs: 05/11/17 07:12 05/11/17 07:12 PT 11.8 SECONDS (9.7-12.2) 05/06/17 09:09 INR 1.0 05/06/17 09:09 APTT 24 SECONDS (21-34) 05/06/17 09:09 - Constitutional Appears: Non-toxic, Chronically Ill - Head Exam Head Exam: NORMOCEPHALIC - Eye Exam Eye Exam: Normal appearance. absent: Scleral icterus - ENT Exam ENT Exam: Mucous Membranes Dry - Neck Exam Neck Exam: absent: Lymphadenopathy - Respiratory Exam Respiratory Exam: Decreased Breath Sounds, Clear to Ausculation Bilateral - Cardiovascular Exam Cardiovascular Exam: REGULAR RHYTHM, +S1, +S2 - GI/Abdominal Exam GI & Abdominal Exam: Distended, Soft. absent: Tenderness - Rectal Exam Rectal Exam: Deferred - Exam Exam: NORMAL INSPECTION - Extremities Exam Extremities Exam: absent: Pedal Edema - Back Exam Back Exam: absent: CVA tenderness (L), CVA tenderness (R) Assessment and Plan (1) Pelvic mass in female Status: Acute (2) Abdominal pain Status: Acute (3) Leukocytosis Status: Acute (4) Pneumonia Status: Acute (5) Respiratory failure Status: Acute (6) Sepsis Status: Acute (7) Hepatitis C Status: Acute - Assessment and Plan (Free Text) Assessment: will need rx for hep c when stable renal on board iv antibiotics to cont for 7 days
[2017-05-11 18:51] LABS: SQUAMOUS EPITHIAL < 1 /hpf (0-5); URINE BILIRUBIN NEGATIVE (NEGATIVE); URINE BLOOD 2+ (NEGATIVE); URINE CLARITY Clear (Clear); URINE COLOR Yellow (YELLOW); URINE GLUCOSE (UA) 1+ mg/dL (Normal); URINE LEUKOCYTE ESTERASE 1+ Leu/uL (Negative); URINE PROTEIN 1+ mg/dL (NEGATIVE); URINE UROBILINOGEN NORMAL mg/dL (0.2-1.0)
[2017-05-11 23:19] VITALS: RESP 20
--- NOTE | 2017-05-11 23:42 | PN ---
DATE: 05/11/2017 LOCATION: Room 551, bed A. SUBJECTIVE: The patient is 66-year-old female seen and examined in rounds without significant clinical changes, out of the ICU, with much less complain of abdominal pain. No chest pain or palpitation, appeared to be more awake, alert, and oriented. No reported significant complain of shortness of breath, chills, or fever. The entire chart is reviewed including, but not limited to, the most recent lab and radiology tests results, current and the previous medication list, current and the previous medical events. Case discussed with the staff at length. LABORATORY DATA: Today's lab, hemoglobin of above 12, hematocrit 24.3, white blood cells of 13.8 with normal platelet count, CO2 content of 23, BUN 32 with normal creatinine and calcium 8.5. The rest of the lab results still pending. PHYSICAL EXAMINATION GENERAL: This is 66-year-old female, appears to be more awake, alert and more comfortable. VITAL SIGNS: Afebrile with pulse of 74, respiratory rate of 20 to 22, blood pressure of 132/64. HEENT: Showed pale, dry, oral mucous membrane. Nonicteric sclerae. LUNGS: Few scattered crepitation, decreased air entry at bases. HEART: Positive S1 and S2. ABDOMEN: Soft, with mild generalized tenderness. No mass or organomegaly. No rebound tenderness or guarding, but with clean dressing. NEUROLOGIC: No reported new neurological deficits, sensory or motor. IMPRESSION: 1. Anemia with peptic ulcer disease. 2. Multiple past medical history including, but not limited to hypertension, hepatitis C viral infection, hyperlipidemia, 3. Renal insufficiency with dehydration. 4. Adrenal mass treated surgically with left oophorectomy. 5. Malnutrition with hypoalbuminemia. 6. Recent history of pneumonia with leukocytosis, improving gradually. 7. Rule out occult lower gastrointestinal tract malignancy. SUGGESTION: 1. Agree with your plan. 2. Again, the patient for colonoscopy when she is more stable clinically, that was discussed at length with the staff in the floor today and further recommendations to follow. Shantel Lakhani MD
[2017-05-12] MEDS: Linezolid 600 mg in D5W 300 ml 600 MG/300 ML BAG IVPB SCH ×2 (00:44→12:44)
[2017-05-12 07:43] LABS: BASO # 0.1 K/uL (0.0-0.2); BASO % 0.4 % (0.0-2.0); EOS % 0.2 % (0.0-4.0); HEMOGLOBIN 8.4 g/dL (11.0-16.0); LYMPH # 1.6 K/uL (1.0-4.3); LYMPH % 11.5 % (20.0-40.0); MEAN CELL VOLUME 84.5 fL (81.0-99.0); MEAN CORPUSCULAR HEMOGLOBIN 29.1 pg (27.0-31.0); MEAN CORPUSCULAR HGB CONC 34.4 g/dL (33.0-37.0); MEAN PLATELET VOLUME 8.9 fL (7.2-11.7); MONO # 0.8 K/uL (0.0-0.8); MONO % 6.2 % (0.0-10.0); NEUT # 11.2 K/uL (1.8-7.0); NEUT % 81.7 % (50.0-75.0); RBC 2.91 Mil/uL (3.80-5.20); RED CELL DISTRIBUTION WIDTH 14.4 % (11.5-14.5); WHITE BLOOD COUNT 13.7 K/uL (4.8-10.8)
[2017-05-12 07:55] LABS: BLOOD UREA NITROGEN 28 mg/dL (7-17); CALCIUM 8.5 mg/dl (8.6-10.4); GFR AFRICAN-AMERICAN > 60; GFR NON-AFRICAN AMERICAN > 60
--- NOTE | 2017-05-12 09:19 | RAD ---
HISTORY: pulm edema follow up COMPARISON: Chest radiograph dated 05/09/2017 TECHNIQUE: Chest PA and lateral FINDINGS: LUNGS: Multifocal bilateral airspace disease. Decrease in persistent mild pulmonary vascular congestion. PLEURA: No significant pleural effusion identified. No pneumothorax apparent. CARDIOVASCULAR: Atherosclerotic aortic calcifications. Cardiomediastinal silhouette stably enlarged. OSSEOUS STRUCTURES: Unchanged. VISUALIZED UPPER ABDOMEN: Normal. OTHER FINDINGS: Right internal jugular access central venous catheter removed. IMPRESSION: Multifocal bilateral airspace disease. Decreasing persistent mild pulmonary vascular congestion.
[2017-05-12] MEDS: Potassium Chloride 20 mEq ER Tab PO SCH ×2 (09:50→17:53)
[2017-05-12] MEDS: Pantoprazole 40 mg EC Tab PO SCH (09:51)
[2017-05-12] MEDS: MethylPREDNISolone 40 mg Vial IVP SCH (09:51)
--- NOTE | 2017-05-12 10:28 | PN ---
DATE: This 66 years old female seen and examined in rounds without significant clinical changes, appeared to be more awake, alert, oriented with less complain of abdominal pain or shortness of breath. She is still on nasal cannula. The patient is somewhat tolerating oral intake more than before without reported active bleeding. The entire chart is reviewed including but not limited to the most recent lab and radiology study results, current and previous medication list, current and previous medical events, and today's lab is still pending, but the patient still have leukocytosis with low hemoglobin and hematocrit, but normal platelet count with BUN *------* but normal creatinine with low calcium at 8.5, low total protein, and low albumin. PHYSICAL EXAMINATION: GENERAL: A 66-year-old female. VITAL SIGNS: Afebrile with pulse of 66, respiratory rate 20 to 22, blood pressure of 146/62. HEENT: Showed pale, dry oral mucosal membrane. Nonicteric sclera. LUNGS: Scattered crepitation, decreased air entry at bases. HEART: Positive S1 and S2. ABDOMEN: Soft with mild distention. No mass or organomegaly. No rebound tenderness or guarding but left lower quadrant moderate tenderness. NEUROLOGIC: The patient refused. EXTREMITIES: Without significant edema, clubbing, or cyanosis. IMPRESSION: 1. Known history but not limited to hepatitis C, viral infection, multifocal pneumonia. 2. Hypertension, hyperlipidemia by history, renal insufficiency with dehydration, gradually improving. 3. Adrenal mass, treated surgically. The patient is stable. 4. Malnutrition with hypoalbuminemia. 5. Anemia secondary to above. 6. Subsequent drop of hemoglobin and hematocrit, the possibility of lower gastrointestinal tract source of blood loss was raised. 7. Peptic ulcer disease by recent endoscopy. SUGGESTION: 1. Continue current management. 2. The patient to be scheduled for colonoscopy only when she is more stable clinically. Shantel Lakhani MD
[2017-05-12] MEDS: Cefepime IV 1 gm in Dextrose 1 GM/50 ML BAG IVPB SCH ×2 (11:45→22:16)
--- NOTE | 2017-05-12 11:50 | CP.PCM.PN ---
Subjective - Date & Time of Evaluation Date of Evaluation: 05/12/17 Time of Evaluation: 11:47 - Subjective Subjective: pt in floor had pt today still coughing no sob no fever Objective - Vital Signs/Intake and Output Vital Signs (last 24 hours): Temp Pulse Resp BP Pulse Ox 98 F 81 20 132/64 97 05/11/17 23:18 05/12/17 07:40 05/11/17 23:18 05/12/17 09:51 05/11/17 23:18 Intake and Output: 05/12/17 05/12/17 06:59 18:59 Intake Total 500 Balance 500 - Medications Medications: Current Medications Albuterol/Ipratropium (Duoneb 3 Mg/0.5 Mg (3 Ml) Ud) 3 ml INH RQ6 [facility] Amlodipine Besylate (Norvasc) 10 mg PO DAILY [facility] Last Admin: 05/12/17 09:50 Dose: 10 mg Furosemide (Lasix) 40 mg IVP Q12 [facility] Last Admin: 05/12/17 09:51 Dose: 40 mg Guaifenesin (Robitussin) 200 mg PO Q4H PRN PRN Reason: Cough and congestion Hydralazine HCl (Apresoline) 25 mg PO Q4 PRN PRN Reason: Other Linezolid (Zyvox 600mg/300ml D5w) 600 mg in 300 mls @ 300 mls/hr IVPB Q12H [facility] Last Admin: 05/12/17 00:44 Dose: 300 mls/hr Fluconazole (Diflucan Iv 200 Mg/100 Ml Ns) 100 mls @ 100 mls/hr IVPB Q24H [facility] Last Admin: 05/11/17 18:17 Dose: 100 mls/hr Cefepime HCl (Maxipime Iv 1 Gm Premix) 1 gm in 50 mls @ 100 mls/hr IVPB Q12H [facility] Last Admin: 05/12/17 11:45 Dose: 100 mls/hr Losartan Potassium (Cozaar) 50 mg PO DAILY [facility] Last Admin: 05/12/17 09:50 Dose: 50 mg Methylprednisolone (Solu-Medrol) 40 mg IVP DAILY [facility] Last Admin: 05/12/17 09:51 Dose: 40 mg Metoprolol Tartrate (Lopressor) 25 mg PO BID [facility] Last Admin: 03/03/18 09:51 Dose: 25 mg Nicotine (Nicoderm Cq) 1 patch TD DAILY [facility] Last Admin: 05/12/17 09:51 Dose: 1 patch Pantoprazole Sodium (Protonix Ec Tab) 40 mg PO DAILY [facility] Last Admin: 05/12/17 09:51 Dose: 40 mg Potassium Chloride (K-Dur 20 Meq Er Tab) 20 meq PO BID [facility] Stop: 05/12/17 18:01 Last Admin: 05/12/17 09:50 Dose: 20 meq Vitamin A (Vitamin A & D Oint Ud Foilpak) 1 ea TOP Q4 PRN PRN Reason: dry lips Last Admin: 05/06/17 21:53 Dose: 1 ea - Labs Labs: 05/12/17 07:33 05/12/17 07:33 PT 11.8 SECONDS (9.7-12.2) 05/06/17 09:09 INR 1.0 05/06/17 09:09 APTT 24 SECONDS (21-34) 05/06/17 09:09 - Constitutional Appears: Non-toxic - Head Exam Head Exam: ATRAUMATIC - Eye Exam Eye Exam: Normal appearance Pupil Exam: PERRL - ENT Exam ENT Exam: Mucous Membranes Moist - Neck Exam Neck Exam: Normal Inspection - Respiratory Exam Respiratory Exam: Decreased Breath Sounds, Rales - Cardiovascular Exam Cardiovascular Exam: REGULAR RHYTHM - GI/Abdominal Exam GI & Abdominal Exam: Normal Bowel Sounds - Exam Exam: NORMAL INSPECTION - Back Exam Back Exam: NORMAL INSPECTION - Neurological Exam Neurological Exam: Normal Gait - Psychiatric Exam Psychiatric exam: Normal Mood - Skin Skin Exam: Normal Color Assessment and Plan - Assessment and Plan (Free Text) Assessment: s/p resp f s/p phmonia s/p abd surgery cough generalised weekness Plan: cont as per orders
[2017-05-12] MEDS: Albuterol-Ipratrop 3 mg / 0.5 (3 ml) UD INH SCH ×2 (13:15→19:49)
[2017-05-12] MEDS: Vitamins A & D Oint UD Foilpak TOP PRN (14:33)
--- NOTE | 2017-05-12 15:23 | CP.PCM.PN ---
Subjective - Date & Time of Evaluation Date of Evaluation: 05/12/17 Time of Evaluation: 12:30 - Subjective Subjective: Follow up Nephrology Consultation: Assessment: Stable Pulmonary edema ? ARDS Nephrotic syndrome with 3.5 gram proteinuria and microscopic hematuria. differential include (MPGN due to Hep C, FSGS due to solitary kidney) Hypokalemia, combined respi and metabolic acidosis metabolic alkalosis, hypernatremia due to lasix Acute Kidney Injury (N17.9) ? etiology. possible ATN:resolved Hyponatremia likely multi-factorial: thiazide diuretics, hypotonic fluids: improved Anemia, s/p left nephrectomy for stones active smoker HTN, hyperlipidemia, adnexal mass (cystadenofibroma) ascites, hypoalbuminemia Cecal thickening on CT scan heterogenous nodular liver with ascites and hx of Hep C ? cirrhosis Plan No acute need for renal replacement therapy at this time. Renal function has improved UOP is excellent bp is stable on diuretic S: seen and examined feels ok Physical Examination: General Appearance:Appears comfortable on O2 via nasal cannula Vitals reviewed and noted as below Head; Atraumatic, normocephalic Neck; supple no lymphadenopathy, no thyromegaly or bruit Lungs: improved respiratory rate/effort. Breath sounds bilateral clear anteriorly. As bibasal air entry decrease and has few crackles as well Heart: normal rate. s1s2 normal. No rub or gallop. Extremities: no edema. No varicose veins Neurological: Patient is Awake alert oriented 3 follows on command no focal deficits Skin: Warm and dry. Normal turgor. No rash. Palpitation: Normal elasticity for age Abdomen: Abdomen is soft. Bowel sounds +. There is no abdominal tenderness, no guarding/rigidity no organomegaly. Psych: Normal insight and normal affect and normal mood MSK: no joint tenderness or swelling. Digits and nails normal, no deformity : kidney or bladder not palpable Labs/imaging reviewed. Past medical history, past surgical history, family history, social history, allergy reviewed and noted as below Family hx: no hx of CKD. Rest non-contributory UA: 2+ protein and 2+ blood CT: left adnexal cyst. Objective - Vital Signs/Intake and Output Vital Signs (last 24 hours): Temp Pulse Resp BP Pulse Ox 98 F 81 20 132/64 97 05/11/17 23:18 05/12/17 07:40 05/11/17 23:18 05/12/17 09:51 05/11/17 23:18 Intake and Output: 05/12/17 05/12/17 06:59 18:59 Intake Total 500 760 Balance 500 760 - Medications Medications: Current Medications Albuterol/Ipratropium (Duoneb 3 Mg/0.5 Mg (3 Ml) Ud) 3 ml INH RQ6 [facility] Last Admin: 05/12/17 13:15 Dose: 3 ml Amlodipine Besylate (Norvasc) 10 mg PO DAILY [facility] Last Admin: 05/12/17 09:50 Dose: 10 mg Furosemide (Lasix) 40 mg IVP Q12 [facility] Last Admin: 05/12/17 09:51 Dose: 40 mg Guaifenesin (Robitussin) 200 mg PO Q4H PRN PRN Reason: Cough and congestion Hydralazine HCl (Apresoline) 25 mg PO Q4 PRN PRN Reason: Other Linezolid (Zyvox 600mg/300ml D5w) 600 mg in 300 mls @ 300 mls/hr IVPB Q12H [facility] Last Admin: 05/12/17 12:44 Dose: 300 mls/hr Fluconazole (Diflucan Iv 200 Mg/100 Ml Ns) 100 mls @ 100 mls/hr IVPB Q24H [facility] Last Admin: 05/11/17 18:17 Dose: 100 mls/hr Cefepime HCl (Maxipime Iv 1 Gm Premix) 1 gm in 50 mls @ 100 mls/hr IVPB Q12H [facility] Last Admin: 05/12/17 11:45 Dose: 100 mls/hr Losartan Potassium (Cozaar) 50 mg PO DAILY [facility] Last Admin: 05/12/17 09:50 Dose: 50 mg Methylprednisolone (Solu-Medrol) 40 mg IVP DAILY [facility] Last Admin: 05/12/17 09:51 Dose: 40 mg Metoprolol Tartrate (Lopressor) 25 mg PO BID [facility] Last Admin: 05/12/17 09:51 Dose: 25 mg Nicotine (Nicoderm Cq) 1 patch TD DAILY [facility] Last Admin: 05/12/17 09:51 Dose: 1 patch Pantoprazole Sodium (Protonix Ec Tab) 40 mg PO DAILY [facility] Last Admin: 05/12/17 09:51 Dose: 40 mg Potassium Chloride (K-Dur 20 Meq Er Tab) 20 meq PO BID [facility] Stop: 05/12/17 18:01 Last Admin: 05/12/17 09:50 Dose: 20 meq Vitamin A (Vitamin A & D Oint Ud Foilpak) 1 ea TOP Q4 PRN PRN Reason: dry lips Last Admin: 05/12/17 14:33 Dose: 1 ea - Labs Labs: 05/12/17 07:33 05/12/17 07:33 PT 11.8 SECONDS (9.7-12.2) 05/06/17 09:09 INR 1.0 05/06/17 09:09 APTT 24 SECONDS (21-34) 05/06/17 09:09
[2017-05-12] MEDS: guaiFENesin 100 mg/5 ml Syrup UD PO PRN (16:42)
[2017-05-12] MEDS: Fluconazole IV 200mg/100 ml NS 100 ML IVPB SCH (19:16)
[2017-05-13] MEDS: Linezolid 600 mg in D5W 300 ml 600 MG/300 ML BAG IVPB SCH ×3 (00:05→23:04)
[2017-05-13] MEDS: Albuterol-Ipratrop 3 mg / 0.5 (3 ml) UD INH SCH ×5 (02:43→20:31)
[2017-05-13 08:10] LABS: BASO % 0.3 % (0.0-2.0); EOS % 0.1 % (0.0-4.0); HEMOGLOBIN 8.3 g/dL (11.0-16.0); LYMPH # 1.8 K/uL (1.0-4.3); MEAN CORPUSCULAR HEMOGLOBIN 28.4 pg (27.0-31.0); MEAN CORPUSCULAR HGB CONC 33.4 g/dL (33.0-37.0); MONO # 0.7 K/uL (0.0-0.8); MONO % 4.9 % (0.0-10.0); NEUT # 12.1 K/uL (1.8-7.0); NEUT % 82.7 % (50.0-75.0); RBC 2.91 Mil/uL (3.80-5.20); RED CELL DISTRIBUTION WIDTH 14.4 % (11.5-14.5); WHITE BLOOD COUNT 14.6 K/uL (4.8-10.8)
[2017-05-13 08:31] LABS: ALB/GLOB RATIO 0.9 (1.0-2.1); ALT/SGPT 43 U/L (9-52); AST/SGOT 22 U/L (14-36); BLOOD UREA NITROGEN 29 mg/dL (7-17); CALCIUM 8.6 mg/dl (8.6-10.4); GFR AFRICAN-AMERICAN > 60; GFR NON-AFRICAN AMERICAN > 60
[2017-05-13] MEDS: guaiFENesin 100 mg/5 ml Syrup UD PO PRN (09:27)
[2017-05-13] MEDS: Vitamins A & D Oint UD Foilpak TOP PRN (09:28)
[2017-05-13] MEDS: Pantoprazole 40 mg EC Tab PO SCH (09:28)
[2017-05-13] MEDS: MethylPREDNISolone 40 mg Vial IVP SCH (09:29)
[2017-05-13] MEDS: Cefepime IV 1 gm in Dextrose 1 GM/50 ML BAG IVPB SCH ×2 (10:52→22:57)
--- NOTE | 2017-05-13 13:41 | CP.PCM.PN ---
Subjective - Date & Time of Evaluation Date of Evaluation: 05/13/17 Time of Evaluation: 13:38 - Subjective Subjective: was disoriented earlier but now seems beter Objective - Vital Signs/Intake and Output Vital Signs (last 24 hours): Temp Pulse Resp BP Pulse Ox 97.8 F 86 20 126/65 96 05/13/17 08:00 05/13/17 08:00 05/13/17 08:00 05/13/17 09:29 05/13/17 08:00 Intake and Output: 05/13/17 05/13/17 06:59 18:59 Intake Total 50 Balance 50 - Medications Medications: Current Medications Albuterol/Ipratropium (Duoneb 3 Mg/0.5 Mg (3 Ml) Ud) 3 ml INH RQ6 [facility] Last Admin: 05/13/17 07:41 Dose: 3 ml Amlodipine Besylate (Norvasc) 10 mg PO DAILY [facility] Last Admin: 05/13/17 09:28 Dose: 10 mg Furosemide (Lasix) 40 mg IVP Q12 [facility] Last Admin: 05/13/17 09:29 Dose: 40 mg Guaifenesin (Robitussin) 200 mg PO Q4H PRN PRN Reason: Cough and congestion Last Admin: 05/13/17 09:27 Dose: 200 mg Hydralazine HCl (Apresoline) 25 mg PO Q4 PRN PRN Reason: Other Linezolid (Zyvox 600mg/300ml D5w) 600 mg in 300 mls @ 300 mls/hr IVPB Q12H [facility] Last Admin: 05/13/17 12:01 Dose: 300 mls/hr Fluconazole (Diflucan Iv 200 Mg/100 Ml Ns) 100 mls @ 100 mls/hr IVPB Q24H [facility] Last Admin: 05/12/17 19:16 Dose: 100 mls/hr Cefepime HCl (Maxipime Iv 1 Gm Premix) 1 gm in 50 mls @ 100 mls/hr IVPB Q12H [facility] Last Admin: 05/13/17 10:52 Dose: 100 mls/hr Losartan Potassium (Cozaar) 50 mg PO DAILY [facility] Last Admin: 05/13/17 09:28 Dose: 50 mg Methylprednisolone (Solu-Medrol) 40 mg IVP DAILY [facility] Last Admin: 03/04/18 09:29 Dose: 40 mg Metoprolol Tartrate (Lopressor) 25 mg PO BID [facility] Last Admin: 05/13/17 09:28 Dose: 25 mg Nicotine (Nicoderm Cq) 1 patch TD DAILY [facility] Last Admin: 05/13/17 09:29 Dose: 1 patch Pantoprazole Sodium (Protonix Ec Tab) 40 mg PO DAILY [facility] Last Admin: 05/13/17 09:28 Dose: 40 mg Vitamin A (Vitamin A & D Oint Ud Foilpak) 1 ea TOP Q4 PRN PRN Reason: dry lips Last Admin: 05/13/17 09:28 Dose: 1 ea - Labs Labs: 05/13/17 07:51 05/13/17 07:51 PT 11.8 SECONDS (9.7-12.2) 05/06/17 09:09 INR 1.0 05/06/17 09:09 APTT 24 SECONDS (21-34) 05/06/17 09:09 - Constitutional Appears: Non-toxic - Head Exam Head Exam: NORMAL INSPECTION - Eye Exam Eye Exam: Normal appearance Pupil Exam: NORMAL ACCOMODATION - ENT Exam ENT Exam: Normal Exam - Neck Exam Neck Exam: Full ROM - Respiratory Exam Respiratory Exam: Clear to Ausculation Bilateral - Cardiovascular Exam Cardiovascular Exam: REGULAR RHYTHM - GI/Abdominal Exam GI & Abdominal Exam: Normal Bowel Sounds - Rectal Exam Rectal Exam: NORMAL INSPECTION - Exam External exam: NORMAL EXTERNAL EXAM - Extremities Exam Extremities Exam: Normal Inspection - Back Exam Back Exam: NORMAL INSPECTION - Neurological Exam Neurological Exam: Normal Gait - Psychiatric Exam Psychiatric exam: Normal Affect - Skin Skin Exam: Normal Color Assessment and Plan - Assessment and Plan (Free Text) Assessment: s/p abd surgery ams transient s/p pnumonia still has cough generalised weekness Plan: as per orders
--- NOTE | 2017-05-13 14:34 | CP.PCM.PN ---
Subjective - Date & Time of Evaluation Date of Evaluation: 05/13/17 Time of Evaluation: 08:00 - Subjective Subjective: awake alert nad Objective - Vital Signs/Intake and Output Vital Signs (last 24 hours): Temp Pulse Resp BP Pulse Ox 97.8 F 86 20 126/65 96 05/13/17 08:00 05/13/17 08:00 05/13/17 08:00 05/13/17 09:29 05/13/17 08:00 Intake and Output: 05/13/17 05/13/17 06:59 18:59 Intake Total 50 760 Balance 50 760 - Medications Medications: Current Medications Albuterol/Ipratropium (Duoneb 3 Mg/0.5 Mg (3 Ml) Ud) 3 ml INH RQ6 [facility] Last Admin: 05/13/17 13:43 Dose: 3 ml Amlodipine Besylate (Norvasc) 10 mg PO DAILY [facility] Last Admin: 05/13/17 09:28 Dose: 10 mg Furosemide (Lasix) 40 mg IVP Q12 [facility] Last Admin: 05/13/17 09:29 Dose: 40 mg Guaifenesin (Robitussin) 200 mg PO Q4H PRN PRN Reason: Cough and congestion Last Admin: 05/13/17 09:27 Dose: 200 mg Hydralazine HCl (Apresoline) 25 mg PO Q4 PRN PRN Reason: Other Linezolid (Zyvox 600mg/300ml D5w) 600 mg in 300 mls @ 300 mls/hr IVPB Q12H [facility] Last Admin: 05/13/17 12:01 Dose: 300 mls/hr Fluconazole (Diflucan Iv 200 Mg/100 Ml Ns) 100 mls @ 100 mls/hr IVPB Q24H [facility] Last Admin: 05/12/17 19:16 Dose: 100 mls/hr Cefepime HCl (Maxipime Iv 1 Gm Premix) 1 gm in 50 mls @ 100 mls/hr IVPB Q12H [facility] Last Admin: 05/13/17 10:52 Dose: 100 mls/hr Losartan Potassium (Cozaar) 50 mg PO DAILY [facility] Last Admin: 05/13/17 09:28 Dose: 50 mg Methylprednisolone (Solu-Medrol) 40 mg IVP DAILY [facility] Last Admin: 05/13/17 09:29 Dose: 40 mg Metoprolol Tartrate (Lopressor) 25 mg PO BID [facility] Last Admin: 05/13/17 09:28 Dose: 25 mg Nicotine (Nicoderm Cq) 2 patch TD DAILY [facility] Pantoprazole Sodium (Protonix Ec Tab) 40 mg PO DAILY [facility] Last Admin: 05/13/17 09:28 Dose: 40 mg Vitamin A (Vitamin A & D Oint Ud Foilpak) 1 ea TOP Q4 PRN PRN Reason: dry lips Last Admin: 05/13/17 09:28 Dose: 1 ea - Labs Labs: 05/13/17 07:51 05/13/17 07:51 PT 11.8 SECONDS (9.7-12.2) 05/06/17 09:09 INR 1.0 05/06/17 09:09 APTT 24 SECONDS (21-34) 05/06/17 09:09 - Constitutional Appears: Non-toxic, Chronically Ill - Head Exam Head Exam: NORMOCEPHALIC - Eye Exam Eye Exam: absent: Scleral icterus - ENT Exam ENT Exam: Mucous Membranes Dry - Neck Exam Neck Exam: absent: Lymphadenopathy - Respiratory Exam Respiratory Exam: Decreased Breath Sounds - Cardiovascular Exam Cardiovascular Exam: REGULAR RHYTHM - GI/Abdominal Exam GI & Abdominal Exam: Distended, Soft - Rectal Exam Rectal Exam: Deferred - Exam Exam: NORMAL INSPECTION Assessment and Plan (1) Pelvic mass in female Status: Acute (2) Abdominal pain Status: Acute (3) Leukocytosis Status: Acute (4) Pneumonia Status: Acute (5) Respiratory failure Status: Acute (6) Sepsis Status: Acute (7) Hepatitis C Status: Acute - Assessment and Plan (Free Text) Assessment: will renew rx may go to [facility] follow up CXR
[2017-05-13] MEDS: Fluconazole IV 200mg/100 ml NS 100 ML IVPB SCH (18:25)
[2017-05-14] MEDS: Albuterol-Ipratrop 3 mg / 0.5 (3 ml) UD INH SCH (02:10)
--- NOTE | 2017-05-14 07:21 | PN ---
DATE: The patient with shortness of breath. Supportive care. Continue treatment. Avel Langley MD
--- NOTE | 2017-05-14 07:21 | PN ---
DATE: LOCATION: [facility], bed A. SUBJECTIVE: This is a 66-year-old female seen in rounds early today without any reported chest pain, significant complaint of palpitation, shortness of breath, or reported chills or fever, tolerating oral intake well, improving clinically. No reported active bleeding, but with intermittent periods of abdominal pain. Today's lab is still pending, but yesterday's labs showed leukocytosis of 13.7, low hemoglobin 8.4, low hematocrit 24.5, with normal platelet count and decreased BUN 28, normal creatinine, calcium 8.5. The patient still has low hemoglobin and hematocrit. Most recent chest x-ray done yesterday showed multifocal bilateral pneumonia with mild pulmonary congestion. PHYSICAL EXAMINATION: GENERAL: A 66-year-old female, awake, alert, and oriented. VITAL SIGNS: Afebrile with pulse 74, respiratory rate 20 to 22, blood pressure 124/66. HEENT: Showed pale, dry oral mucous membrane. Nonicteric sclerae. LUNGS: Few scattered crepitation, decreased air entry at bases. HEART: Positive S1 and S2. ABDOMEN: Soft with mild distention, with clean dressing. No mass or organomegaly. No rebound tenderness or guarding. RECTAL: The patient refused. EXTREMITIES: With mild lower extremity edematous changes. No clubbing or cyanosis. NEUROLOGIC: No reported new neurological deficits, sensory or motor. No reported new focal deficits. Peripheral pulses are present bilaterally and positive, but weak. IMPRESSION: 1. Re-exacerbation of peptic ulcer disease. 2. Known history of but not limited to hypertension, adrenal mass, treated surgically with renal insufficiency, improved. 3. Reported abnormal CAT scan of the abdomen and pelvis with thickened rectosigmoid area of unclear etiology. 4. Mild malnutrition, hypoalbuminemia, improving clinically. 5. Anemia secondary to above. 6. Known history of hyperlipidemia, hepatitis C viral infection. 7. Recently diagnosed multifocal pneumonia. SUGGESTIONS: 1. Agree with your plan. 2. The patient will need colonoscopy when she is more stable clinically due to her leukocytosis and her recently diagnosed bilateral pneumonia. 3. Continue current management. Shantel Lakhani MD [facility] # [id number]
--- NOTE | 2017-05-14 08:00 | PN ---
DATE: The patient is improving, shortness of breath is less. Will repeat chest x-ray. Avel Langley MD
[2017-05-14] MEDS: MethylPREDNISolone 40 mg Vial IVP SCH (09:39)
[2017-05-14] MEDS: Pantoprazole 40 mg EC Tab PO SCH (09:39)
[2017-05-14] MEDS: Cefepime IV 1 gm in Dextrose 1 GM/50 ML BAG IVPB SCH ×2 (11:50→22:31)
[2017-05-14] MEDS: Linezolid 600 mg in D5W 300 ml 600 MG/300 ML BAG IVPB SCH (12:35)
--- NOTE | 2017-05-14 12:44 | CP.PCM.PN ---
Subjective - Date & Time of Evaluation Date of Evaluation: 05/14/17 Time of Evaluation: 09:00 - Subjective Subjective: afeb day # 14 iv rx will d/c antibiotics if ok with Dr Medina Objective - Vital Signs/Intake and Output Vital Signs (last 24 hours): Temp Pulse Resp BP Pulse Ox 97.6 F 60 20 110/68 100 05/14/17 07:10 05/14/17 07:45 05/14/17 07:10 05/14/17 09:39 05/14/17 07:10 - Medications Medications: Current Medications Albuterol/Ipratropium (Duoneb 3 Mg/0.5 Mg (3 Ml) Ud) 3 ml INH RQ6 [facility] Last Admin: 05/14/17 02:10 Dose: Not Given Amlodipine Besylate (Norvasc) 10 mg PO DAILY [facility] Last Admin: 05/14/17 09:39 Dose: 10 mg Furosemide (Lasix) 40 mg PO BID [facility] Guaifenesin (Robitussin) 200 mg PO Q4H PRN PRN Reason: Cough and congestion Last Admin: 05/13/17 09:27 Dose: 200 mg Hydralazine HCl (Apresoline) 25 mg PO Q4 PRN PRN Reason: Other Linezolid (Zyvox 600mg/300ml D5w) 600 mg in 300 mls @ 300 mls/hr IVPB Q12H [facility] Last Admin: 05/14/17 12:35 Dose: 300 mls/hr Fluconazole (Diflucan Iv 200 Mg/100 Ml Ns) 100 mls @ 100 mls/hr IVPB Q24H [facility] Last Admin: 05/13/17 18:25 Dose: 100 mls/hr Cefepime HCl (Maxipime Iv 1 Gm Premix) 1 gm in 50 mls @ 100 mls/hr IVPB Q12H [facility] Stop: 05/15/17 00:00 Last Admin: 05/14/17 11:50 Dose: 100 mls/hr Losartan Potassium (Cozaar) 50 mg PO DAILY [facility] Last Admin: 05/14/17 09:39 Dose: 50 mg Methylprednisolone (Solu-Medrol) 40 mg IVP DAILY [facility] Last Admin: 05/14/17 09:39 Dose: 40 mg Metoprolol Tartrate (Lopressor) 25 mg PO BID [facility] Last Admin: 05/14/17 09:39 Dose: 25 mg Nicotine (Nicoderm Cq) 1 patch TD DAILY [facility] Pantoprazole Sodium (Protonix Ec Tab) 40 mg PO DAILY [facility] Last Admin: 05/14/17 09:39 Dose: 40 mg Vitamin A (Vitamin A & D Oint Ud Foilpak) 1 ea TOP Q4 PRN PRN Reason: dry lips Last Admin: 05/13/17 09:28 Dose: 1 ea - Labs Labs: 05/13/17 07:51 05/13/17 07:51 PT 11.8 SECONDS (9.7-12.2) 05/06/17 09:09 INR 1.0 05/06/17 09:09 APTT 24 SECONDS (21-34) 05/06/17 09:09 - Constitutional Appears: Non-toxic, Chronically Ill - Head Exam Head Exam: NORMOCEPHALIC - Eye Exam Eye Exam: PERRL - ENT Exam ENT Exam: Mucous Membranes Dry - Neck Exam Neck Exam: absent: Lymphadenopathy - Respiratory Exam Respiratory Exam: Decreased Breath Sounds - Cardiovascular Exam Cardiovascular Exam: REGULAR RHYTHM Assessment and Plan (1) Pelvic mass in female Status: Acute (2) Abdominal pain Status: Acute (3) Leukocytosis Status: Acute (4) Pneumonia Status: Acute (5) Respiratory failure Status: Acute (6) Sepsis Status: Acute (7) Hepatitis C Status: Acute
[2017-05-14] MEDS: Vitamins A & D Oint UD Foilpak TOP PRN (13:52)
--- NOTE | 2017-05-14 15:19 | CP.PCM.PN ---
Subjective - Date & Time of Evaluation Date of Evaluation: 05/14/17 Time of Evaluation: 15:17 - Subjective Subjective: Follow up Nephrology Consultation: Assessment: Stable Pulmonary edema ? ARDS : improved Nephrotic syndrome with 3.5 gram proteinuria and microscopic hematuria. differential include (MPGN due to Hep C, FSGS due to solitary kidney) Hypokalemia, combined respi and metabolic acidosis metabolic alkalosis, hypernatremia due to lasix Acute Kidney Injury (N17.9) ? etiology. possible ATN:resolved Hyponatremia likely multi-factorial: thiazide diuretics, hypotonic fluids: improved Anemia, s/p left nephrectomy for stones active smoker HTN, hyperlipidemia, adnexal mass (cystadenofibroma) ascites, hypoalbuminemia Cecal thickening on CT scan heterogenous nodular liver with ascites and hx of Hep C ? cirrhosis Plan No acute need for renal replacement therapy at this time. UOP and s creat better /stable Hypertension control with meds as ordered. agree with current BP meds. started on cozaar 50 mg. can uptitrate dose as needed Monitor Input/Output, daily weights and renal function with basic metabolic panel change to lasix 40 mg oral BID. supplement electrolytes as needed. Potassium supplementation as needed She is not a candidate for kidney biopsy at present due to solitary kidney and acute illness anemia management as per primary team ID follow up for chronic Hep C treatment Dose meds/antibiotics for improved GFR. Avoid nephrotoxins/NSAIDs Glycemic control Further work up/management as per primary team pt stable for d/c from renal perspective when planned. f/up in office 2-3 weeks post d/c Thanks for allowing me to participate in care of your patient. Will follow her in hopsital as needed basis. Please call if any Qs. Dr Scott Andrade Office: [phone] reason for consult: TONA and hyponatremia HPI: Pt is a 66 F with hx of hypertension (years), smoker presented with complaints of abdomen pain and leg swelling, found to have ascites and left adnexal cystic mass, renal consult for TONA and hyponatremia. pt also reports hx of left nephrectomy for kidney stones she has een on HCTZ and also was receiving hypotonic fluids as D5/0.45% saline Denies OTC/herbal meds or NSAIDs No recent iodinated contrast exposure. No obvious episodes of low BP. ROS: Patient extubated she feels better shortness of breath is better denied any nausea vomiting stomach pain 04/30/17 for expl lap s/p left oopherectomy Physical Examination: General Appearance:Appears comfortable on O2 via nasal cannula Vitals reviewed and noted as below Head; Atraumatic, normocephalic Neck; supple no lymphadenopathy, no thyromegaly or bruit Lungs: improved respiratory rate/effort. Breath sounds bilateral clearer Heart: normal rate. s1s2 normal. No rub or gallop. Extremities: no edema. No varicose veins Neurological: Patient is Awake alert oriented 3 follows on command no focal deficits Skin: Warm and dry. Normal turgor. No rash. Palpitation: Normal elasticity for age Abdomen: Abdomen is soft. Bowel sounds +. There is no abdominal tenderness, no guarding/rigidity no organomegaly. Psych: Normal insight and normal affect and normal mood MSK: no joint tenderness or swelling. Digits and nails normal, no deformity : kidney or bladder not palpable Labs/imaging reviewed. Past medical history, past surgical history, family history, social history, allergy reviewed and noted as below Family hx: no hx of CKD. Rest non-contributory UA: 2+ protein and 2+ blood CT: left adnexal cyst. Objective - Vital Signs/Intake and Output Vital Signs (last 24 hours): Temp Pulse Resp BP Pulse Ox 97.6 F 60 20 110/68 100 05/14/17 07:10 05/14/17 07:45 05/14/17 07:10 05/14/17 09:39 05/14/17 07:10 - Medications Medications: Current Medications Albuterol/Ipratropium (Duoneb 3 Mg/0.5 Mg (3 Ml) Ud) 3 ml INH RQ6 [facility] Last Admin: 05/14/17 02:10 Dose: Not Given Amlodipine Besylate (Norvasc) 10 mg PO DAILY [facility] Last Admin: 05/14/17 09:39 Dose: 10 mg Furosemide (Lasix) 40 mg PO BID [facility] Guaifenesin (Robitussin) 200 mg PO Q4H PRN PRN Reason: Cough and congestion Last Admin: 05/13/17 09:27 Dose: 200 mg Hydralazine HCl (Apresoline) 25 mg PO Q4 PRN PRN Reason: Other Linezolid (Zyvox 600mg/300ml D5w) 600 mg in 300 mls @ 300 mls/hr IVPB Q12H [facility] Last Admin: 05/14/17 12:35 Dose: 300 mls/hr Fluconazole (Diflucan Iv 200 Mg/100 Ml Ns) 100 mls @ 100 mls/hr IVPB Q24H [facility] Last Admin: 05/13/17 18:25 Dose: 100 mls/hr Cefepime HCl (Maxipime Iv 1 Gm Premix) 1 gm in 50 mls @ 100 mls/hr IVPB Q12H [facility] Stop: 05/15/17 00:00 Last Admin: 05/14/17 11:50 Dose: 100 mls/hr Losartan Potassium (Cozaar) 50 mg PO DAILY [facility] Last Admin: 05/14/17 09:39 Dose: 50 mg Methylprednisolone (Solu-Medrol) 40 mg IVP DAILY [facility] Last Admin: 05/14/17 09:39 Dose: 40 mg Metoprolol Tartrate (Lopressor) 25 mg PO BID [facility] Last Admin: 05/14/17 09:39 Dose: 25 mg Nicotine (Nicoderm Cq) 1 patch TD DAILY [facility] Last Admin: 05/14/17 12:51 Dose: 1 patch Pantoprazole Sodium (Protonix Ec Tab) 40 mg PO DAILY [facility] Last Admin: 05/14/17 09:39 Dose: 40 mg Vitamin A (Vitamin A & D Oint Ud Foilpak) 1 ea TOP Q4 PRN PRN Reason: dry lips Last Admin: 05/14/17 13:52 Dose: 1 ea - Labs Labs: 05/13/17 07:51 05/13/17 07:51 PT 11.8 SECONDS (9.7-12.2) 05/06/17 09:09 INR 1.0 05/06/17 09:09 APTT 24 SECONDS (21-34) 05/06/17 09:09
--- NOTE | 2017-05-14 15:36 | PN ---
DATE: LOCATION: [facility], bed A. SUBJECTIVE: This is a 66-year-old female seen and examined early in rounds with periods of being mildly restless and semi-confused on and off that could be secondary to medication induced, but no reported active bleeding, chest pain, palpitation, or significant shortness of breath. No reported chills or fever. The entire chart is reviewed including but not limited to the most recent lab and radiology study results, current and the previous medication list, current and the previous medical events. Case discussed with the staff at length. Today's lab still pending. However, yesterday's labs showed leukocytosis of 14.6, with low hemoglobin 8.3, hematocrit 24.7, with normal platelet count, but BUN of 29, with normal creatinine, and low albumin 3.0, with red blood cells as well as white blood cells in the urine. Most recent chest x-ray done two days ago. Official report is seen, indicative of multifocal pneumonia. PHYSICAL EXAMINATION: GENERAL: A 66-year-old female. VITAL SIGNS: Afebrile, with pulse of 64, respiratory rate 20 to 22, blood pressure of 114/66. HEENT: Showed pale dry oral mucous membranes. Nonicteric sclerae. LUNGS: Few scattered crepitations, decreased air entry at bases, with slight wheezing bilaterally. HEART: Positive S1 and S2. ABDOMEN: Soft with [id number] tenderness and slight distention. Bowel sounds are hypoactive. Clean dressing is seen. EXTREMITIES: Without significant clubbing or cyanosis, but mild edematous changes. NEUROLOGIC: No reported new neurological deficits, sensory or motor. The patient appeared to be more alert and awake. IMPRESSION: 1. Re-exacerbation of peptic ulcer disease. 2. Left-sided adrenal mass lesion, treated surgically with left oophorectomy. 3. Known history of but not limited to hypertension, hyperlipidemia, hepatitis C infection, as well as excessive alcohol intake before. 4. Multifocal pneumonia by radiology study results. 5. Anemia secondary to above. 6. Abnormal CAT scan of the abdomen and pelvis with thickened rectosigmoid wall of unclear etiology. The patient may need soon colonoscopy in the face of her anemia. SUGGESTIONS: 1. Continue current management. 2. Repeat H and H. 3. Control any underlying electrolyte imbalance and/or coagulopathy. 4. Endoscopic evaluation of the lower GI tract only when the patient is more stable clinically. Shantel Lakhani MD
--- NOTE | 2017-05-14 15:51 | CP.PCM.PN ---
Subjective - Date & Time of Evaluation Date of Evaluation: 05/14/17 Time of Evaluation: 15:44 - Subjective Subjective: DISCUSSED PLAN FOR ABX THERAPY WITH DR. JEFFERSON FOR D/C AND DISPOSITION PREPARATION. DISCUSSED CXR FROM 05/[address] JEFFERSON. WILL ORDER REPEAT UA PER HIS REQUEST WELL. PER DR. JEFFERSON, BOTH IV CEFEPIME AND ZYVOX CAN BE D/C'D AFTER TODAY'S LAST DOSE OF EACH. PT IS TO ALSO CONTINUE FLUCONAZOLE BUT PO X3 MORE DAYS RATHER THAN IV (START PO 05/15/17 AND LAST DAY TO BE GIVEN ON 05/17/17). DISCUSSED ABX PLAN WITH JEREMIE RIOJAS. POSS D/C TO [facility] TOMORROW IF PT STABLE. NO FURTHER ORDERS AT THIS TIME. Objective - Vital Signs/Intake and Output Vital Signs (last 24 hours): Temp Pulse Resp BP Pulse Ox 97.8 F 76 20 115/47 L 99 05/14/17 15:00 05/14/17 15:00 05/14/17 15:00 05/14/17 15:00 05/14/17 15:00 - Medications Medications: Current Medications Albuterol/Ipratropium (Duoneb 3 Mg/0.5 Mg (3 Ml) Ud) 3 ml INH RQ6 [facility] Last Admin: 05/14/17 02:10 Dose: Not Given Amlodipine Besylate (Norvasc) 10 mg PO DAILY [facility] Last Admin: 05/14/17 09:39 Dose: 10 mg Furosemide (Lasix) 40 mg PO BID [facility] Guaifenesin (Robitussin) 200 mg PO Q4H PRN PRN Reason: Cough and congestion Last Admin: 05/13/17 09:27 Dose: 200 mg Hydralazine HCl (Apresoline) 25 mg PO Q4 PRN PRN Reason: Other Linezolid (Zyvox 600mg/300ml D5w) 600 mg in 300 mls @ 300 mls/hr IVPB Q12H [facility] Last Admin: 05/14/17 12:35 Dose: 300 mls/hr Fluconazole (Diflucan Iv 200 Mg/100 Ml Ns) 100 mls @ 100 mls/hr IVPB Q24H [facility] Last Admin: 05/13/17 18:25 Dose: 100 mls/hr Cefepime HCl (Maxipime Iv 1 Gm Premix) 1 gm in 50 mls @ 100 mls/hr IVPB Q12H [facility] Stop: 05/15/17 00:00 Last Admin: 05/14/17 11:50 Dose: 100 mls/hr Losartan Potassium (Cozaar) 50 mg PO DAILY [facility] Last Admin: 05/14/17 09:39 Dose: 50 mg Methylprednisolone (Solu-Medrol) 40 mg IVP DAILY [facility] Last Admin: 05/14/17 09:39 Dose: 40 mg Metoprolol Tartrate (Lopressor) 25 mg PO BID [facility] Last Admin: 05/14/17 09:39 Dose: 25 mg Nicotine (Nicoderm Cq) 1 patch TD DAILY [facility] Last Admin: 05/14/17 12:51 Dose: 1 patch Pantoprazole Sodium (Protonix Ec Tab) 40 mg PO DAILY [facility] Last Admin: 05/14/17 09:39 Dose: 40 mg Vitamin A (Vitamin A & D Oint Ud Foilpak) 1 ea TOP Q4 PRN PRN Reason: dry lips Last Admin: 05/14/17 13:52 Dose: 1 ea - Labs Labs: 05/13/17 07:51 05/13/17 07:51 PT 11.8 SECONDS (9.7-12.2) 05/06/17 09:09 INR 1.0 05/06/17 09:09 APTT 24 SECONDS (21-34) 05/06/17 09:09
--- NOTE | 2017-05-14 18:13 | CP.PCM.PN ---
Subjective - Date & Time of Evaluation Date of Evaluation: 05/14/17 Time of Evaluation: 18:10 - Subjective Subjective: less cough no sob walks beter with pt Objective - Vital Signs/Intake and Output Vital Signs (last 24 hours): Temp Pulse Resp BP Pulse Ox 97.8 F 60 20 115/47 L 99 05/14/17 15:00 05/14/17 16:33 05/14/17 15:00 05/14/17 15:00 05/14/17 15:00 Intake and Output: 05/14/17 05/14/17 06:59 18:59 Intake Total 710 Balance 710 - Medications Medications: Current Medications Albuterol/Ipratropium (Duoneb 3 Mg/0.5 Mg (3 Ml) Ud) 3 ml INH RQ6 [facility] Last Admin: 05/14/17 02:10 Dose: Not Given Amlodipine Besylate (Norvasc) 10 mg PO DAILY [facility] Last Admin: 05/14/17 09:39 Dose: 10 mg Fluconazole (Diflucan) 200 mg PO DAILY [facility] PRN Reason: Protocol Stop: 05/18/17 10:01 Furosemide (Lasix) 40 mg PO BID [facility] Guaifenesin (Robitussin) 200 mg PO Q4H PRN PRN Reason: Cough and congestion Last Admin: 05/13/17 09:27 Dose: 200 mg Hydralazine HCl (Apresoline) 25 mg PO Q4 PRN PRN Reason: Other Cefepime HCl (Maxipime Iv 1 Gm Premix) 1 gm in 50 mls @ 100 mls/hr IVPB Q12H [facility] Stop: 05/15/17 00:00 Last Admin: 05/14/17 11:50 Dose: 100 mls/hr Losartan Potassium (Cozaar) 50 mg PO DAILY [facility] Last Admin: 05/14/17 09:39 Dose: 50 mg Methylprednisolone (Solu-Medrol) 40 mg IVP DAILY [facility] Last Admin: 05/14/17 09:39 Dose: 40 mg Metoprolol Tartrate (Lopressor) 25 mg PO BID [facility] Last Admin: 05/14/17 09:39 Dose: 25 mg Nicotine (Nicoderm Cq) 1 patch TD DAILY [facility] Last Admin: 05/14/17 12:51 Dose: 1 patch Pantoprazole Sodium (Protonix Ec Tab) 40 mg PO DAILY [facility] Last Admin: 05/14/17 09:39 Dose: 40 mg Vitamin A (Vitamin A & D Oint Ud Foilpak) 1 ea TOP Q4 PRN PRN Reason: dry lips Last Admin: 05/14/17 13:52 Dose: 1 ea - Labs Labs: 05/13/17 07:51 05/13/17 07:51 PT 11.8 SECONDS (9.7-12.2) 05/06/17 09:09 INR 1.0 05/06/17 09:09 APTT 24 SECONDS (21-34) 05/06/17 09:09 - Constitutional Appears: Non-toxic - Head Exam Head Exam: NORMAL INSPECTION - Eye Exam Eye Exam: Normal appearance Pupil Exam: NORMAL ACCOMODATION - ENT Exam ENT Exam: Mucous Membranes Moist - Neck Exam Neck Exam: Normal Inspection - Respiratory Exam Respiratory Exam: Clear to Ausculation Bilateral - Cardiovascular Exam Cardiovascular Exam: REGULAR RHYTHM - GI/Abdominal Exam GI & Abdominal Exam: Normal Bowel Sounds - Rectal Exam Rectal Exam: NORMAL INSPECTION - Exam Exam: NORMAL INSPECTION - Extremities Exam Extremities Exam: Normal Inspection - Back Exam Back Exam: NORMAL INSPECTION - Neurological Exam Neurological Exam: Normal Gait - Psychiatric Exam Psychiatric exam: Normal Affect - Skin Skin Exam: Normal Color Assessment and Plan - Assessment and Plan (Free Text) Assessment: s/p surgery s/p pnumonia generaled weekness Plan: cont treatment my need [facility]
[2017-05-14 19:36] LABS: SQUAMOUS EPITHIAL < 1 /hpf (0-5); URINE BILIRUBIN NEGATIVE (NEGATIVE); URINE BLOOD 1+ (NEGATIVE); URINE CLARITY Clear (Clear); URINE COLOR Yellow (YELLOW); URINE GLUCOSE (UA) 1+ mg/dL (Normal); URINE LEUKOCYTE ESTERASE TRACE Leu/uL (Negative); URINE PROTEIN 1+ mg/dL (NEGATIVE); URINE UROBILINOGEN NORMAL mg/dL (0.2-1.0)
[2017-05-15] MEDS: Albuterol-Ipratrop 3 mg / 0.5 (3 ml) UD INH SCH ×2 (01:26→07:30)
[2017-05-15 08:07] LABS: BLOOD UREA NITROGEN 33 mg/dL (7-17); CALCIUM 8.7 mg/dl (8.6-10.4); GFR AFRICAN-AMERICAN > 60; GFR NON-AFRICAN AMERICAN 55
[2017-05-15 08:09] LABS: BASO % 0.5 % (0.0-2.0); EOS % 0.3 % (0.0-4.0); HEMOGLOBIN 8.9 g/dL (11.0-16.0); LYMPH % 19.1 % (20.0-40.0); MEAN CELL VOLUME 84.9 fL (81.0-99.0); MEAN CORPUSCULAR HEMOGLOBIN 29.3 pg (27.0-31.0); MEAN CORPUSCULAR HGB CONC 34.5 g/dL (33.0-37.0); MONO # 0.8 K/uL (0.0-0.8); MONO % 7.6 % (0.0-10.0); NEUT # 7.6 K/uL (1.8-7.0); NEUT % 72.5 % (50.0-75.0); RBC 3.03 Mil/uL (3.80-5.20); RED CELL DISTRIBUTION WIDTH 14.6 % (11.5-14.5); WHITE BLOOD COUNT 10.5 K/uL (4.8-10.8)
[2017-05-15 08:25] VITALS: BP 119/51; TEMP 97.8; O2SAT 98
[2017-05-15] MEDS: MethylPREDNISolone 40 mg Vial IVP SCH (09:50)
[2017-05-15] MEDS: Pantoprazole 40 mg EC Tab PO SCH (09:51)
--- NOTE | 2017-05-15 11:53 | CP.PCM.PN ---
Subjective - Date & Time of Evaluation Date of Evaluation: 05/15/17 Time of Evaluation: 11:53 - Subjective Subjective: PATIENT WAS ADMITTED FOR ABD PAIN AND FEET SWOLLEN; AAOX3 ON 2 L NASAL CANNULA AND SAT AT 100% SITTING AT THE BEDSIDE AND NO SIGN OF DISTRESS NOTED Objective - Vital Signs/Intake and Output Vital Signs (last 24 hours): Temp Pulse Resp BP Pulse Ox 97.8 F 67 20 119/51 L 98 05/15/17 08:24 05/15/17 08:24 05/15/17 08:24 05/15/17 09:57 05/15/17 08:24 Intake and Output: 05/15/17 05/15/17 06:59 18:59 Intake Total 400 Balance 400 - Medications Medications: Current Medications Albuterol/Ipratropium (Duoneb 3 Mg/0.5 Mg (3 Ml) Ud) 3 ml INH RQ6 [facility] Last Admin: 05/15/17 07:30 Dose: 3 ml Amlodipine Besylate (Norvasc) 10 mg PO DAILY [facility] Last Admin: 05/15/17 09:50 Dose: 10 mg Fluconazole (Diflucan) 200 mg PO DAILY [facility] PRN Reason: Protocol Stop: 05/18/17 10:01 Last Admin: 05/15/17 09:51 Dose: 200 mg Furosemide (Lasix) 40 mg PO BID [facility] Last Admin: 05/15/17 09:57 Dose: 40 mg Guaifenesin (Robitussin) 200 mg PO Q4H PRN PRN Reason: Cough and congestion Last Admin: 05/13/17 09:27 Dose: 200 mg Hydralazine HCl (Apresoline) 25 mg PO Q4 PRN PRN Reason: Other Losartan Potassium (Cozaar) 50 mg PO DAILY [facility] Last Admin: 05/15/17 09:50 Dose: 50 mg Methylprednisolone (Solu-Medrol) 40 mg IVP DAILY [facility] Last Admin: 05/15/17 09:50 Dose: 40 mg Metoprolol Tartrate (Lopressor) 25 mg PO BID [facility] Last Admin: 05/15/17 09:50 Dose: 25 mg Nicotine (Nicoderm Cq) 1 patch TD DAILY [facility] Last Admin: 05/15/17 09:50 Dose: 1 patch Pantoprazole Sodium (Protonix Ec Tab) 40 mg PO DAILY [facility] Last Admin: 05/15/17 09:51 Dose: 40 mg Vitamin A (Vitamin A & D Oint Ud Foilpak) 1 ea TOP Q4 PRN PRN Reason: dry lips Last Admin: 05/14/17 13:52 Dose: 1 ea - Labs Labs: 05/15/17 07:46 05/15/17 07:46 PT 11.8 SECONDS (9.7-12.2) 05/06/17 09:09 INR 1.0 05/06/17 09:09 APTT 24 SECONDS (21-34) 05/06/17 09:09 Assessment and Plan - Assessment and Plan (Free Text) Assessment: PATIENT SEEN AND EXAMINED AT THE BEDSIDE S/P LEFT SALPINGO OOPHORECTOMY S/P RESP DISTRESS PATIENT WAS INTUBATE AND EXTUBATE PASS SWALLOW EVAL EGD DONE NO EVIDENCE OF BLEED NOTED PER DR ARZATE COLONOSCOPY OUT PATIENT DISCUSS WITH DR RAI AND CLEAR PATIENT FOR DC PLACE UNDER THE SERVICE OF DR GOMES AT [facility] ---CALL DR GOMES FOR ADMITTING FOLLOW UP WITH DR RAI IN 1-2 WEEK AT HER OFFICE ---CALL FOR APPOINTMENT FOLLOW UP WITH DR NICHOLSON IN 3 WEEKS AT HIS OFFICE ---CALL FOR APPOINTMENT CHEMISTRY WEEKLY TO MONITOR POTASSIUM AND KIDNEY FUNCTION CONTINUE YOUR HOME MEDICATION ORDER NEW PRESCRIPTION GIVEN DIFLUCAN 200 MG PO DAILY FOR 3 DAYS LOSARTAN 50 MG PO DAILY LASIX 40 MG PO TWICE A DAY NICOTINE PATCH 14MG/24H DAILY STOP TAKING HTCZ AND BENTYL ACTIVITY TOLERATED AND PER FACILITY PROTOCOL CALL DR GOMES FOR FURTHER ORDER DISCUSS WITH PATIENT WHO AGREE AND VERBALIZED UNDERSTANDING
[2017-05-15 12:25] VITALS: PULSE 78
--- NOTE | 2017-05-15 13:30 | CP.PCM.PN ---
Subjective - Date & Time of Evaluation Date of Evaluation: 05/15/17 Time of Evaluation: 13:27 - Subjective Subjective: pt seen and examined feels beter ready to go to [facility] Objective - Vital Signs/Intake and Output Vital Signs (last 24 hours): Temp Pulse Resp BP Pulse Ox 97.8 F 78 20 119/51 L 98 05/15/17 08:24 05/15/17 12:16 05/15/17 08:24 05/15/17 09:57 05/15/17 12:16 Intake and Output: 05/15/17 05/15/17 06:59 18:59 Intake Total 400 Balance 400 - Medications Medications: Current Medications Albuterol/Ipratropium (Duoneb 3 Mg/0.5 Mg (3 Ml) Ud) 3 ml INH RQ6 [facility] Last Admin: 05/15/17 07:30 Dose: 3 ml Amlodipine Besylate (Norvasc) 10 mg PO DAILY [facility] Last Admin: 05/15/17 09:50 Dose: 10 mg Fluconazole (Diflucan) 200 mg PO DAILY [facility] PRN Reason: Protocol Stop: 05/18/17 10:01 Last Admin: 05/15/17 09:51 Dose: 200 mg Furosemide (Lasix) 40 mg PO BID [facility] Last Admin: 05/15/17 09:57 Dose: 40 mg Guaifenesin (Robitussin) 200 mg PO Q4H PRN PRN Reason: Cough and congestion Last Admin: 05/13/17 09:27 Dose: 200 mg Hydralazine HCl (Apresoline) 25 mg PO Q4 PRN PRN Reason: Other Losartan Potassium (Cozaar) 50 mg PO DAILY [facility] Last Admin: 05/15/17 09:50 Dose: 50 mg Methylprednisolone (Solu-Medrol) 40 mg IVP DAILY [facility] Last Admin: 05/15/17 09:50 Dose: 40 mg Metoprolol Tartrate (Lopressor) 25 mg PO BID [facility] Last Admin: 05/15/17 09:50 Dose: 25 mg Nicotine (Nicoderm Cq) 1 patch TD DAILY [facility] Last Admin: 05/15/17 09:50 Dose: 1 patch Pantoprazole Sodium (Protonix Ec Tab) 40 mg PO DAILY [facility] Last Admin: 05/15/17 09:51 Dose: 40 mg Vitamin A (Vitamin A & D Oint Ud Foilpak) 1 ea TOP Q4 PRN PRN Reason: dry lips Last Admin: 05/14/17 13:52 Dose: 1 ea - Labs Labs: 05/15/17 07:46 05/15/17 07:46 PT 11.8 SECONDS (9.7-12.2) 05/06/17 09:09 INR 1.0 05/06/17 09:09 APTT 24 SECONDS (21-34) 05/06/17 09:09 - Constitutional Appears: Non-toxic - Head Exam Head Exam: NORMAL INSPECTION - Eye Exam Eye Exam: Normal appearance Pupil Exam: NORMAL ACCOMODATION - ENT Exam ENT Exam: Mucous Membranes Moist - Neck Exam Neck Exam: Full ROM - Respiratory Exam Respiratory Exam: Clear to Ausculation Bilateral - Cardiovascular Exam Cardiovascular Exam: REGULAR RHYTHM - GI/Abdominal Exam GI & Abdominal Exam: Normal Bowel Sounds - Rectal Exam Rectal Exam: NORMAL INSPECTION - Extremities Exam Extremities Exam: Full ROM - Back Exam Back Exam: NORMAL INSPECTION - Psychiatric Exam Psychiatric exam: Normal Affect - Skin Skin Exam: Normal Color Assessment and Plan - Assessment and Plan (Free Text) Assessment: s/p abd surgery s/p pnumonia renal insufiscency generalised weekness Plan: d/c ro [facility]
== END 2017-05-15 14:15 | disposition home or self-care (01) | DRG 853 ==
LOC: C.ER 07:36 → C.9E 12:42 → C.5S 13:22 → C.9I 04-28 23:29 → C.5S 05-11 01:12
PROVIDERS: ADMIT Internal Medicine; ATTEND Internal Medicine
PROC: 0DB68ZX Excision of Stomach, Via Natural or Artificial Opening Endoscopic, Diagnostic (ICD-10-PCS; 2017-04-27)
PROC: 5A1955Z Respiratory Ventilation, Greater than 96 Consecutive Hours (ICD-10-PCS; 2017-04-30)
PROC: 0UT10ZZ Resection of Left Ovary, Open Approach (ICD-10-PCS; 2017-04-30)
PROC: 0BH17EZ Insertion of Endotracheal Airway into Trachea, Via Natural or Artificial Opening (ICD-10-PCS; 2017-04-30)
PROC: 0UT60ZZ Resection of Left Fallopian Tube, Open Approach (ICD-10-PCS; principal; 2017-04-30 11:20)
DX: A41.9 Sepsis, unspecified organism (principal); J96.01 Acute respiratory failure with hypoxia; J69.0 Pneumonitis due to inhalation of food and vomit; N17.9 Acute kidney failure, unspecified; K55.9 Vascular disorder of intestine, unspecified; E87.0 Hyperosmolality and hypernatremia; K57.32 Diverticulitis of large intestine without perforation or abscess without bleeding; E44.1 Mild protein-calorie malnutrition; I13.0 Hypertensive heart and chronic kidney disease with heart failure and stage 1 through stage 4 chronic kidney disease, or unspecified chronic kidney disease; I50.32 Chronic diastolic (congestive) heart failure; E87.1 Hypo-osmolality and hyponatremia; N39.0 Urinary tract infection, site not specified; D27.1 Benign neoplasm of left ovary; J44.9 Chronic obstructive pulmonary disease, unspecified; K74.60 Unspecified cirrhosis of liver; E78.5 Hyperlipidemia, unspecified; E86.0 Dehydration; E87.6 Hypokalemia; F17.210 Nicotine dependence, cigarettes, uncomplicated; I25.10 Atherosclerotic heart disease of native coronary artery without angina pectoris; K29.70 Gastritis, unspecified, without bleeding; N18.9 Chronic kidney disease, unspecified; D63.8 Anemia in other chronic diseases classified elsewhere; R31.29 Other microscopic hematuria; K20.8 Other esophagitis; K52.81 Eosinophilic gastritis or gastroenteritis; K44.9 Diaphragmatic hernia without obstruction or gangrene; B19.20 Unspecified viral hepatitis C without hepatic coma; E27.9 Disorder of adrenal gland, unspecified